=== PATIENT | female | born 1970 | race Caucasian/White ===

== ENCOUNTER 2017-09-16 21:07 | Emergency (ER) | payer SELFPAY ==
[2017-09-16 21:09] VITALS: BP 144/97; PULSE 95; RESP 18; TEMP 37.7; O2SAT 99; BMI 24.3
[2017-09-16 21:21] VITALS: RESP 18
[2017-09-16 21:31] LABS: Bacteria 0 SEEN /hpf (None Seen)
[2017-09-16] MEDS: Ketorolac 30 MG/ML Syringe IV (21:33)
[2017-09-16] MEDS: 0.9% Normal Saline 1,000 ML 1000 ML IV (21:33)
[2017-09-16 21:44] LABS: Color, Urine Yellow (Yellow); Glucose, Dipstick Normal (Normal); Ketone-Dipstick 15 mg/dl (Negative); Leukocyte Esterase-Dipstick 100 /ul (Negative); Nitrite-Dipstick Negative (Negative); Occult Blood-Urine 10 /ul (Negative); Protein-Dipstick 100 mg/dl (Negative); Specific Gravity, Urine 1.025 (1.002-1.030); Urine Clarity Sl. Cloudy (Clear); Urine Urobilinogen 4 mg/dl (Normal)
[2017-09-16 21:48] LABS: Urine Bilirubin Dipstick 1 mg/dL (Negative)
[2017-09-16 21:54] LABS: Amorphous Sediment 1+ URATE; Hyaline Cast 0-5 SEEN /lpf (0-5); Mucous, Urine RARE /hpf (<or=2+); Red Blood Cells-Urine 0-5 SEEN /hpf (0-5); Squamous Epithelial Cells - UA 0-5 SEEN /hpf (5-10); White Blood Cells 5-10 SEEN /hpf (0-5)
--- NOTE | 2017-09-16 21:55 | NURSING ---
POSITIVE STREP RELAYED TO . VERBALIZED UNDERSTANDING
[2017-09-16 21:57] LABS: Absolute Lymphocyte Count 1.46 X10^3/ul (0.83-4.51); Absolute Neutrophil Count 16.4 X10^3/uL (2.0-7.7); Basophil# 0.02 X10^3/uL; Basophil% 0.1 % (0-1); Differential Indicated SCAN CRITERIA MET; Eosinophil# 0.02 X10^3/uL; Eosinophils% 0.1 % (0-5); Hematocrit 41.6 % (37-47); Lymphocyte # 1.46 X10^3/ul (4.0); Lymphocyte % 7.3 % (19-41); Mean Corp Hgb Conc 33.7 g/gl (32-36); Mean Corpuscular Hgb 28.7 pg (27.0-32.0); Mean Corpuscular Volume 85.4 fL (81-99); Mean Platelet Vol. 11.2 fl (6.2-12.0); Neutrophil # 16.44 X10^3/uL (2.7-7.7); Neutrophil % 82.3 % (47-70); POSITIVE COUNT NO; POSITIVE DIFFERENTIAL YES; POSITIVE MORPHOLOGY NO; Platelet Count 200 K/mm3 (150-450); RBC Distribution Width CV 12.8 % (11.6-14.6); RBC Distribution Width SD 40.1 fl (35.1-43.9); Red Blood Count 4.87 M/mm3 (4.2-5.4)
[2017-09-16 21:58] LABS: Anion Gap 8 (5-15); BUN 14 mg/dL (7-18); Calcium,Total 8.6 mg/dL (8.5-10.1); Chloride 99 mmol/L (98-107); Creatinine, Serum 1.17 mg/dL (0.55-1.02); EST Glomerular Filtration Rate 52 mL/min (>60); Est Glom Filt Rate - Afr Amer 63 mL/min (>60); Glucose 122 mg/dL (74-106); Potassium 3.2 mmol/L (3.5-5.1); Sodium Level 133 mmol/L (136-145)
--- NOTE | 2017-09-16 22:13 | ED.VISSUMM ---
- ER Visit Summary Date of Service: 09/16/17 Chief Complaint: [Sore throat ] History of Present Illness: The patient is a 47 F [presents with sore throat ?3 days. Patient has felt hot and cold. She denies sick contacts. Patient denies cough. Patient states that hurts to swallow. She has had subjective fever at home. Patient describes a headache and body aches. Patient describes some low back pain and some lower abdominal pain intermittently. Patient denies dysuria, urgency, or frequency.] Patient denies vomiting or diarrhea. Physical Examination: [HEENT-PERRLA, EOMI. Cranial nerves II through XII grossly intact. TMs clear. Mucous membranes moist. Paient has anterior cervical lymphadenopathy that is tender. Pharynx is erythematous. Tonsils are absent. Uvula midline. No trismus. No stridor. Voice does not appear hoarse. Cardiovascular-regular rate and rhythm without murmur or ectopy Lungs-clear to auscultation, chest wall stable without crepitus or subcu emphysema Abdomen-normoactive bowel sounds, soft. Patient has some mild tenderness over the left lower quadrant and right lower quadrant mostly in both groin areas. No significant adenopathy noted in the groin. Extremities-intact ?4, normal range of motion, normal pulses, atraumatic] Test Results: [CBC with differential obtained showed an elevated white count of 20,000, hemoglobin 14, hematocrit 42, platelets 200. Chemistries unremarkable other than a slightly depressed potassium at 3.2 urinalysis unremarkable. Influenza screen was negative strep screen was positive] Emergency Department Course and Treatment: [Patient had an IV line established and she was given a liter normal same fluid bolus. Patient was given Toradol 30 mg IV and Decadron 10 mg IV. Patient was treated with Zithromax 500 mg p.o. given her allergy to amoxicillin.] Treatment Plan: [Patient will be treated with Zithromax. Patient advised to use salt water gargles. She will be given for [place] for home for severe pain.] Disposition: [Discharged to home in stable condition. Patient advised to follow-up with the [facility] within next 3-5 days.] Patient advised to return if difficulty swallowing or condition should worsen in any way. Impression: [Strep pharyngitis] This note was generated with [employer] dictation software. It may contain incorrect words, spelling, and punctuation that were not noted in review of the chart prior to signing ED Disposition - Plan for ED Patient: Chief Complaint: General Illness Referrals: Care Physician,No Primary [Primary Care Provider] -
--- NOTE | 2017-09-16 22:18 | ED.DCSUM_ITS ---
- ER Visit Summary Date of Service: 09/16/17 Chief Complaint: [Sore throat ] History of Present Illness: The patient is a 47 F [presents with sore throat ?3 days. Patient has felt hot and cold. She denies sick contacts. Patient denies cough. Patient states that hurts to swallow. She has had subjective fever at home. Patient describes a headache and body aches. Patient describes some low back pain and some lower abdominal pain intermittently. Patient denies dysuria, urgency, or frequency.] Patient denies vomiting or diarrhea. Physical Examination: [HEENT-PERRLA, EOMI. Cranial nerves II through XII grossly intact. TMs clear. Mucous membranes moist. Paient has anterior cervical lymphadenopathy that is tender. Pharynx is erythematous. Tonsils are absent. Uvula midline. No trismus. No stridor. Voice does not appear hoarse. Cardiovascular-regular rate and rhythm without murmur or ectopy Lungs-clear to auscultation, chest wall stable without crepitus or subcu emphysema Abdomen-normoactive bowel sounds, soft. Patient has some mild tenderness over the left lower quadrant and right lower quadrant mostly in both groin areas. No significant adenopathy noted in the groin. Extremities-intact ?4, normal range of motion, normal pulses, atraumatic] Test Results: [CBC with differential obtained showed an elevated white count of 20,000, hemoglobin 14, hematocrit 42, platelets 200. Chemistries unremarkable other than a slightly depressed potassium at 3.2 urinalysis unremarkable. Influenza screen was negative strep screen was positive] Emergency Department Course and Treatment: [Patient had an IV line established and she was given a liter normal same fluid bolus. Patient was given Toradol 30 mg IV and Decadron 10 mg IV. Patient was treated with Zithromax 500 mg p.o. given her allergy to amoxicillin.] Treatment Plan: [Patient will be treated with Zithromax. Patient advised to use salt water gargles. She will be given for [place] for home for severe pain.] Disposition: [Discharged to home in stable condition. Patient advised to follow -up with the [facility] within next 3-5 days.] Patient advised to return if difficulty swallowing or condition should worsen in any way. Impression: [Strep pharyngitis] This note was generated with [employer] dictation software. It may contain incorrect words, spelling, and punctuation that were not noted in review of the chart prior to signing ED Disposition - Plan for ED Patient: Chief Complaint: General Illness Referrals: Care Physician,No Primary [Primary Care Provider] -
--- NOTE | 2017-09-16 22:18 | ED.DEP ---
ED Disposition - Plan for ED Patient: Chief Complaint: General Illness Instructions: Strep Throat Prescriptions: Azithromycin [Zithromax] 250 mg PO DAILY #4 tab Referrals: Care Physician,No Primary [Primary Care Provider] - 3-5 Days
[2017-09-16] MEDS: HYDROcodone Bitartrate/Apap 5/325 Tablet PO (22:29)
[2017-09-16] MEDS: Azithromycin 250 MG Tablet 500 MG PO (22:29)
[2017-09-16 22:33] VITALS: BP 149/86; PULSE 89; RESP 18; O2SAT 96
[2017-09-16 22:48] LABS: Differential Comment SCANNED
== END 2017-09-16 22:35 | disposition home or self-care (01) ==
LOC: ED 21:40
PROVIDERS: Emergency Provider Emergency Medicine
DX: J02.0 Streptococcal pharyngitis (principal); E87.6 Hypokalemia; Z72.0 Tobacco use
CPT/HCPCS: 80048; 81001; 85025; 87804; 87880; 96361; 96374; 96375; 99284; J7030

== ENCOUNTER 2019-07-12 13:26 | Emergency (ER) | payer MEDICAID, SELFPAY ==
[2019-07-12 13:26] VITALS: BP 185/117; PULSE 101; RESP 20; TEMP 36.6; O2SAT 99; BMI 25.9
--- NOTE | 2019-07-12 16:24 | ED.DCSUM_ITS ---
- ER Visit Summary Date of Service: 07/12/19 Chief Complaint: Nausea, vomiting, diarrhea History of Present Illness: The patient is a 49 F who presents with nausea, vomiting, and diarrhea that began yesterday. Patient states the pain waxes and wanes. Patient states pain is over the lower abdomen. Patient states she has been unable to keep anything down including her medications. Patient takes lisinopril for high blood pressure. Patient states she has had some watery diarrhea that was worse yesterday. Patient denies any dysuria or hematuria. Patient denies any fevers but admits to subjective chills. Physical Examination: Vital signs are stable. Patient is afebrile. Patient is in no acute distress. Oral mucosa is pink and moist. Neck is supple. Trachea is midline. There is no JVD noted. Heart was regular rate and rhythm. Lungs are clear and equal bilaterally. Abdomen is soft. Bowel sounds are normal. There is mild lower abdominal tenderness. There is no rebound or guarding noted. Skin is warm dry. Cranial nerves II through XII are intact. There are no focal motor or sensory deficits noted. Extremities are intact. There is no calf tenderness or edema. Test Results: CBC was within normal limits. Basic metabolic profile was essentially normal with the exception of a mild hypokalemia of 3.0. Patient was given a dose of oral potassium here. Emergency Department Course and Treatment: Patient was given IV fluids here. Patient was given Zofran. Patient was given a prescription for Zofran. Patient was instructed to follow-up with her primary care physician in 3 to 5 days. Karlene sylvestershon understood and was agreeable with the plan. All questions were answered. Disposition: Discharge home Impression: Nausea, vomiting, and diarrhea This note was generated with [employer] dictation software. It may contain incorrect words, spelling, and punctuation that were not noted in review of the chart prior to signing ED Disposition - Plan for ED Patient: Disposition: Home or Assisted Living Diagnosis: Nausea vomiting and diarrhea Instructions: VOMITING AND DIARRHEA, Nonspecific (Adult) Prescriptions: Ondansetron [Zofran Odt] 4 mg PO Q8H PRN PRN #10 tab PRN Reason: Nausea Prescription Printed Referrals: Care Physician,No Primary [Primary Care Provider] - Desean Bonilla MD [NON-STAFF] - 5-7 Days
[2019-07-12] MEDS: Ondansetron 4 MG/2 ML Vial IV (16:38)
[2019-07-12] MEDS: 0.9% Normal Saline 1,000 ML 1000 ML IV (16:39)
[2019-07-12 16:41] VITALS: BP 200/94; PULSE 71; RESP 16; O2SAT 95
[2019-07-12 16:42] LABS: Absolute Lymphocyte Count 2.18 X10^3/uL (0.83-4.51); Absolute Neutrophil Count 5.9 X10^3/uL (2.0-7.7); Basophil# 0.05 X10^3/uL; Basophil% 0.6 % (0-1); Eosinophil# 0.23 X10^3/uL; Eosinophils% 2.6 % (0-5); Hematocrit 40.7 % (37-47); Hemoglobin 13.4 g/dL (12.0-15.0); Lymphocyte # 2.18 X10^3/ul (4.0); Lymphocyte % 24.2 % (19-41); Mean Corp Hgb Conc 32.9 g/dL (32-36); Mean Corpuscular Hgb 28.5 pg (27.0-32.0); Mean Corpuscular Volume 86.4 fL (81-99); Mean Platelet Vol. 11.1 fl (6.2-12.0); Monocyte# 0.65 X10^3/uL; Monocyte% 7.2 % (0-10); NRBC Flagged by Analyzer 0 % (0-5); Neutrophil # 5.88 X10^3/uL (2.7-7.7); Neutrophil % 65.2 % (47-70); Platelet Count 280 K/mm3 (150-450); RBC Distribution Width CV 12.2 % (11.6-14.6); RBC Distribution Width SD 38.9 fl (35.1-43.9); Red Blood Count 4.71 M/mm3 (4.2-5.4)
[2019-07-12] MEDS: Lisinopril 20 MG Tablet PO (16:52)
[2019-07-12 17:01] LABS: ALB/GLOB Ratio 0.9 RATIO (0.9-2.4); AST(SGOT) 12 U/L (15-37); Alanine Aminotransfer ALT/SGPT 20 U/L (13-56); Albumin, Serum 3.3 g/dL (3.2-5.0); Alkaline Phosphatase 45 U/L (45-117); Anion Gap 2 (5-15); BUN 11 mg/dL (7-18); BUN/Creat Ratio 10.2 RATIO (10-20); Calcium,Total 8.5 mg/dL (8.5-10.1); Chloride 104 mmol/L (98-107); Creatinine, Serum 1.08 mg/dL (0.55-1.02); EST Glomerular Filtration Rate 57 mL/min (>60); Est Glom Filt Rate - Afr Amer 69 mL/min (>60); Estimated Creatinine Clearance 48.74 ml/min; Globulin 3.8 g/dL (2.2-4.2); Glucose 96 mg/dL (74-106); Protein, Total 7.1 g/dL (6.4-8.2); Sodium Level 140 mmol/L (136-145)
[2019-07-12 18:11] VITALS: BP 118/78; PULSE 87; RESP 18; O2SAT 99
== END 2019-07-12 18:13 | disposition home or self-care (01) ==
PROVIDERS: Emergency Provider Emergency Medicine
DX: R11.2 Nausea with vomiting, unspecified (principal); R19.7 Diarrhea, unspecified; E87.6 Hypokalemia; I10 Essential (primary) hypertension; R10.9 Unspecified abdominal pain; R51 Headache; Z72.0 Tobacco use; Z79.899 Other long term (current) drug therapy
CPT/HCPCS: 80053; 85025; 96361; 96374; 99283; J7030; J2405

== ENCOUNTER 2020-02-21 10:11 | Emergency (ER) | payer MEDICAID, SELFPAY ==
[2020-02-21 10:11] VITALS: BP 174/117; PULSE 88; RESP 24; TEMP 36.4; O2SAT 98; BMI 25.6
[2020-02-21 10:24] VITALS: BP 174/117; PULSE 88; RESP 24; TEMP 36.4; O2SAT 98
--- NOTE | 2020-02-21 10:28 | EKG12_ITS ---
Test Reason : REPEAT CP Blood Pressure : / mmHG Vent. Rate : 066 BPM Atrial Rate : 066 BPM P-R Int : 148 ms QRS Dur : 080 ms QT Int : 456 ms P-R-T Axes : 070 022 043 degrees QTc Int : 478 ms Normal sinus rhythm Normal ECG Confirmed by FLORES GREEN, MARCY ([id number]), order editor CONNOR CAR ([id number]) on 02/27/2020 7:56:26 AM Referred By: RAH Confirmed By:BONNIE TANNER MD
[2020-02-21] MEDS: 0.9% Normal Saline 1,000 ML 1000 ML IV (10:36)
[2020-02-21] MEDS: Morphine 4 MG/ML Syringe IV (10:36)
[2020-02-21] MEDS: Aspirin 81 MG TAB.CHEW 324 MG PO (10:36)
--- NOTE | 2020-02-21 10:37 | ED.VISSUMM ---
- ER Visit Summary Date of Service: 02/21/20 Chief Complaint: Chest pain History of Present Illness: The patient is a 49 F with no primary care physician. She reports she has chest pain began at 630 this morning. Is a continuous aching pain that waxes and wanes. It is 8 out of 10 at worst and 6 out of 10 currently. Is worsened by breathing and unchanged with exertion. Is relieved by nothing. Patient denies any associated nausea, vomiting. She has diaphoresis and shortness of breath with this. She states that it radiates into her right shoulder and into her upper back. She has had subjective fever and chills. She denies a cough or sore throat. No sick contacts that she knows of. Patient reports that she has had a frontal headache for the past 3 days. She describes this as a sharp pain is gradually worsened. Is 10 on 10 severity. She does have a history of similar headaches. Physical Examination: Vitals: Stable. Afebrile. General: Well-nourished and well-developed. Head: Normocephalic atraumatic. Neck: Supple, no lymphadenopathy. No JVD. Nontender. Cardiovascular: Regular rate and rhythm. No murmurs. Respiratory: No respiratory distress. Clear to auscultation bilaterally. Abdominal: Soft, nontender, nondistended, normal bowel sounds. No guarding, rebound, or peritoneal signs. Back: Nontender. Extremities: Nontender, no edema. Skin: Normal color, no rash. Neurologic: Alert and oriented ?3. Cranial nerves II through XII are intact. Normal strength and sensation. Psych: Anxious. Test Results: EKG is sinus at 83. Is unchanged from 2015. CBC shows lymphocytes of 18. Chem-7 shows a quite a 109 and creatinine 1.24. Troponin is negative. D-dimer is negative. Chest x-ray shows chronic changes. Repeat EKG is unchanged. Repeat troponin is negative. Clinical Impression(s) from Imaging Studies Chest X-Ray 02/21/20 11:00 IMPRESSION: Normal x-ray examination of the chest. Electronically Signed: Torin Minaya, at 11:21 EDT , Service support , Emergency Department Course and Treatment: Patient had an IV placed. She given morphine and Zofran IV. She was given aspirin p.o. She is resting more comfortably. Treatment Plan: Patient will be discharged with instructions to follow-up with her primary care physician as soon as possible. Return to the emergency department for any worsening symptoms. Disposition: To home in improved and stable condition. Impression: 1. Atypical chest pain. 2. DAINA score of 2. This note was generated with [employer] dictation software. It may contain incorrect words, spelling, and punctuation that were not noted in review of the chart prior to signing ED Disposition - Plan for ED Patient: Instructions: ED Chest Pain Atypical Unkn Cause Referrals: Miryam Medina [NON-STAFF] - As soon as possible
[2020-02-21 10:38] VITALS: O2SAT 100
[2020-02-21 10:41] LABS: Basophil# 0.06 X10^3/uL; Basophil% 0.7 % (0-1); Eosinophil# 0.33 X10^3/uL; Eosinophils% 3.9 % (0-5); Hematocrit 41.3 % (37-47); Hemoglobin 13.5 g/dL (12.0-15.0); Lymphocyte % 17.5 % (19-41); Mean Corp Hgb Conc 32.7 g/dL (32-36); Mean Corpuscular Hgb 28.4 pg (27.0-32.0); Mean Corpuscular Volume 86.9 fL (81-99); Mean Platelet Vol. 11.2 fl (6.2-12.0); Monocyte# 0.63 X10^3/uL; Monocyte% 7.4 % (0-10); NRBC Flagged by Analyzer 0 % (0-5); Neutrophil # 6.02 X10^3/uL (2.7-7.7); Neutrophil % 70.1 % (47-70); Platelet Count 294 K/mm3 (150-450); RBC Distribution Width CV 12.3 % (11.6-14.6); RBC Distribution Width SD 39.1 fl (35.1-43.9); Red Blood Count 4.75 M/mm3 (4.2-5.4); White Blood Count 8.6 K/mm3 (4.4-11.0)
[2020-02-21 10:51] LABS: D-Dimer Quantitative (DVT/PE) 0.44 FEU/ug/m (0.27-0.49)
[2020-02-21] MEDS: Ondansetron 4 MG/2 ML Vial IV (10:51)
[2020-02-21 10:56] LABS: Anion Gap 5 (5-15); BUN 17 mg/dL (7-18); BUN/Creat Ratio 13.7 RATIO (10-20); Calcium,Total 8.8 mg/dL (8.5-10.1); Chloride 109 mmol/L (98-107); Creatinine, Serum 1.24 mg/dL (0.55-1.02); EST Glomerular Filtration Rate 48 mL/min (>60); Est Glom Filt Rate - Afr Amer 59 mL/min (>60); Estimated Creatinine Clearance 42.45 ml/min; Glucose 96 mg/dL (74-106); Potassium 3.7 mmol/L (3.5-5.1); Sodium Level 141 mmol/L (136-145)
--- NOTE | 2020-02-21 11:00 | RAD_ITS ---
STUDY: X-RAY CHEST REASON FOR EXAM: Female, 49 years old. C/O CHEST TIGHTNESS THAT IS WORSE WITH BREATHING AND NUMBNESS IN RIGHT ARM STARTING LAST NIGHT. TECHNIQUE: Single AP portable view of the chest. COMPARISON: None. FINDINGS: EKG electrodes are seen. The lungs are clear and expanded. There is no demonstrated pleural abnormality. Normal size heart. Normal mediastinum and shima. Normal visualized pulmonary arteries. Normal visualized aortic arch and descending thoracic aorta. Normal visualized thoracic spine. Normal visualized ribs, clavicles, and shoulders. There is no demonstrated abnormality of the visualized soft tissue structures of the upper abdomen. RAD/Chest 1 View (Portable) IMPRESSION: Normal x-ray examination of the chest. Electronically Signed: Torin Minaya, at 11:21 EDT , Service support ,
--- NOTE | 2020-02-21 11:09 | EKG12_ITS ---
Test Reason : CP Blood Pressure : / mmHG Vent. Rate : 083 BPM Atrial Rate : 083 BPM P-R Int : 140 ms QRS Dur : 080 ms QT Int : 404 ms P-R-T Axes : 074 038 062 degrees QTc Int : 474 ms Normal sinus rhythm Normal ECG Confirmed by FLORES GREEN, MARCY ([id number]), video news editor CONNOR CAR ([id number]) on 02/27/2020 7:56:40 AM Referred By: RAH Confirmed By:BONNIE TANNER MD
[2020-02-21 13:02] VITALS: BP 194/102; PULSE 76; RESP 18; O2SAT 100
[2020-02-21 14:22] VITALS: BP 176/94; PULSE 84; RESP 17; O2SAT 99
== END 2020-02-21 14:23 | disposition home or self-care (01) ==
LOC: ED 11:40
PROVIDERS: Emergency Provider Emergency Medicine
DX: R07.9 Chest pain, unspecified (principal); F17.200 Nicotine dependence, unspecified, uncomplicated; I10 Essential (primary) hypertension
CPT/HCPCS: 71045; 80048; 84484; 85025; 85379; 93005; 96374; 96375; 99284; J7030; A4216; J2405

== ENCOUNTER → 2020-03-29 17:15 | Outpatient (CLI) | payer MEDICAID, SELFPAY | PROVIDERS: Referring Provider Physician Assistant; Visit Provider Physician Assistant | DX: Z20.828 Contact with and (suspected) exposure to other viral communicable diseases (principal) | CPT/HCPCS: 87635; C9803; U0003 ==

== ENCOUNTER 2020-04-30 17:46 | Emergency (ER) | payer MEDICAID, SELFPAY ==
[2020-04-30 17:46] VITALS: BP 150/109; PULSE 88; RESP 16; TEMP 36.1; O2SAT 100; BMI 25.6
--- NOTE | 2020-04-30 18:29 | ED.RN ---
CALLED FOR PT AT 182, NO ANSWER.
== END 2020-04-30 18:28 | disposition left against medical advice (07) ==
LOC: ED 18:37
PROVIDERS: Emergency Provider Emergency Medicine
DX: Z53.21 Procedure and treatment not carried out due to patient leaving prior to being seen by health care provider (principal)

== ENCOUNTER 2020-08-14 14:33 | Emergency (ER) | payer MEDICAID, SELFPAY ==
[2020-08-14 14:34] VITALS: BP 213/119; PULSE 82; RESP 19; TEMP 36.1; O2SAT 99; BMI 27.0
[2020-08-14 14:36] VITALS: BP 213/119; PULSE 86; PULSE 87; RESP 16; RESP 17; TEMP 36.1; O2SAT 98; O2SAT 99
--- NOTE | 2020-08-14 15:05 | ED.DCSUM_ITS ---
- ER Visit Summary Date of Service: 08/14/20 Chief Complaint: Cough History of Present Illness: The patient is a 50 F who goes to the [facility]. She reports she has a cough began yesterday it is nonproductive. She complains of loss of taste today. She has had subjective fever and chills. Complains of a scratchy throat. She also has diffuse myalgias and weakness. She has a headache that stated 10 severity. It is aching and frontal in location. She does have a history of similar headaches. Reports that she is short of breath. This is mild. Is increased with walking. She denies any chest pain. Physical Examination: Vitals: 96.9, 213/119, 87, 17, 90% on room air which is not hypoxic. General: Well-nourished and well-developed. Head: Normocephalic atraumatic. Neck: Supple, no lymphadenopathy. No JVD. Nontender. Cardiovascular: Regular rate and rhythm. No murmurs. Respiratory: No respiratory distress. Clear to auscultation bilaterally. Abdominal: Soft, nontender, nondistended, normal bowel sounds. No guarding, rebound, or peritoneal signs. Back: Nontender. Extremities: Nontender, no edema. Skin: Normal color, no rash. Neurologic: Alert and oriented ?3. Cranial nerves II through XII are intact. Normal strength and sensation. Psych: Normal affect. Test Results: COVID-19 is negative. CBC shows lymphocytes of 18. Chem-7 shows potassium 3.1 creatinine 3.83. Creatinine in 2019 was 1.08?1.24. Clinical Impression(s) from Imaging Studies Chest X-Ray 08/14/20 15:07 IMPRESSION: Normal x-ray examination of the chest. Electronically Signed: Torin Minaya MD at 15:29 EST , Service support , Emergency Department Course and Treatment: Patient had an IV placed. She was given morphine, Zofran, and dexamethasone IV. Repeat blood pressure is 208/105. She is given a dose of Vasotec IV and repeat blood pressure is 160/70. Treatment Plan: I discussed the lab findings with the patient. At this time I do not have an explanation for her acute renal insufficiency. She is on lisinopril for her hypertension. Given the renal insufficiency I do not think that increasing the dose of this is in her best interest. She feels well and would like to go home. She will be discharged with Zofran and instructed to follow-up to [facility] in 2 days for a repeat blood pressure check and repeat evaluation of her renal function. Return to the emergency department for any worsening symptoms. Disposition: To home in improved and stable condition. Impression: 1. URI. 2. ANAND. 3. Hypertension on lisinopril. This note was generated with [employer] dictation software. It may contain incorrect words, spelling, and punctuation that were not noted in review of the chart prior to signing ED Disposition - Plan for ED Patient: Instructions: ED URI, Viral, No Abx (Adult), ED Renal Insufficiency, ED High Blood Pressure ... Prescriptions: Benzonatate [Tessalon Perle] 200 mg PO TID PRN PRN #20 capsule PRN Reason: Cough Ondansetron [Zofran Odt] 4 mg PO Q8H PRN PRN #10 tablet PRN Reason: Nausea Referrals: Miryam Medina [NON-STAFF] - 2 Days
--- NOTE | 2020-08-14 15:07 | RAD_ITS ---
STUDY: X-RAY CHEST REASON FOR EXAM: Female, 50 years old. Cough TECHNIQUE: Single AP portable view of the chest. COMPARISON: Comparison is made with prior study dated 02/21/2020. FINDINGS: Hyperinflation. The lungs are clear. There is no demonstrated pleural abnormality. Normal size heart. Normal mediastinum and shima. Normal visualized pulmonary arteries. Normal visualized aortic arch and descending thoracic aorta. Normal visualized thoracic spine. Normal visualized ribs, clavicles, and shoulders. There is no demonstrated abnormality of the visualized soft tissue structures of the upper abdomen. RAD/Chest 1 View (Portable) IMPRESSION: Normal x-ray examination of the chest. Electronically Signed: Torin Minaya MD at 15:29 EST , Service support ,
[2020-08-14] MEDS: Morphine 4 MG/ML Syringe IV (15:25)
[2020-08-14] MEDS: dexAMETHasone 10 MG/ML Vial 6 MG IV (15:26)
[2020-08-14] MEDS: Ondansetron 4 MG/2 ML Vial IV (15:26)
[2020-08-14 15:31] VITALS: O2SAT 100
[2020-08-14 15:31] LABS: Absolute Lymphocyte Count 1.71 X10^3/uL (0.83-4.51); Absolute Neutrophil Count 6.5 X10^3/uL (2.0-7.7); Basophil# 0.09 X10^3/uL; Eosinophil# 0.32 X10^3/uL; Eosinophils% 3.4 % (0-5); Hematocrit 42.3 % (37-47); Lymphocyte # 1.71 X10^3/ul (4.0); Lymphocyte % 18.4 % (19-41); Mean Corp Hgb Conc 33.1 g/dL (32-36); Mean Corpuscular Hgb 28.7 pg (27.0-32.0); Mean Corpuscular Volume 86.9 fL (81-99); Mean Platelet Vol. 11.3 fl (6.2-12.0); Monocyte# 0.64 X10^3/uL; Monocyte% 6.9 % (0-10); NRBC Flagged by Analyzer 0 % (0-5); Neutrophil % 70.1 % (47-70); Platelet Count 276 K/mm3 (150-450); RBC Distribution Width SD 38.5 fl (35.1-43.9); Red Blood Count 4.87 M/mm3 (4.2-5.4); White Blood Count 9.3 K/mm3 (4.4-11.0)
[2020-08-14 16:06] LABS: Anion Gap 6 (5-15); BUN 13 mg/dL (7-18); BUN/Creat Ratio 4.6 RATIO (10-20); Calcium,Total 8.7 mg/dL (8.5-10.1); Chloride 104 mmol/L (98-107); Creatinine, Serum 2.83 mg/dL (0.55-1.02); EST Glomerular Filtration Rate 19 mL/min (>60); Est Glom Filt Rate - Afr Amer 23 mL/min (>60); Estimated Creatinine Clearance 18.39 ml/min; Glucose 91 mg/dL (74-106); Potassium 3.1 mmol/L (3.5-5.1); Sodium Level 137 mmol/L (136-145)
[2020-08-14] MEDS: Enalaprilat 1.25 MG/ML Vial IV (16:19)
[2020-08-14] MEDS: 0.9% Normal Saline 1,000 ML 999 ML IV (16:21)
[2020-08-14 17:10] VITALS: BP 164/99; PULSE 77; RESP 17; O2SAT 98
== END 2020-08-14 17:17 | disposition home or self-care (01) ==
LOC: ED 15:17
PROVIDERS: Emergency Provider Emergency Medicine
DX: J06.9 Acute upper respiratory infection, unspecified (principal); N17.9 Acute kidney failure, unspecified; I10 Essential (primary) hypertension; F17.200 Nicotine dependence, unspecified, uncomplicated; Z79.899 Other long term (current) drug therapy
CPT/HCPCS: 71045; 80048; 85025; 87426; 96361; 96374; 96375; 99284; J7030; J7040; A4216; J2405

== ENCOUNTER 2020-10-03 18:40 | Emergency (ER) | payer MEDICAID, SELFPAY ==
[2020-10-03 18:41] VITALS: BP 190/112; PULSE 104; RESP 18; TEMP 36.8; O2SAT 99; BMI 26.2
--- NOTE | 2020-10-03 19:01 | EKG12_ITS ---
Test Reason : HTN Blood Pressure : / mmHG Vent. Rate : 090 BPM Atrial Rate : 090 BPM P-R Int : 148 ms QRS Dur : 082 ms QT Int : 386 ms P-R-T Axes : 062 025 058 degrees QTc Int : 472 ms Normal sinus rhythm Normal ECG Confirmed by FLORES GREEN, MARCY ([id number]), supervising editor news reel CONNOR CAR ([id number]) on 10/08/2020 9:09:39 AM Referred By: MICHAEL Confirmed By:BONNIE TANNER MD
--- NOTE | 2020-10-03 19:07 | RAD_ITS ---
STUDY: X-RAY CHEST REASON FOR EXAM: Female, 50 years old. Hypertension TECHNIQUE: Single frontal view of the chest. COMPARISON: 02/21/2020 and 08/14/2020 FINDINGS: There is no new focal consolidation. There is a stable vague opacity within the right lower lung which may reflect a confluence of shadows. Normal size heart. Normal mediastinum and shima. Normal visualized pulmonary arteries. Normal visualized aortic arch and descending thoracic aorta. Normal visualized thoracic spine. Normal visualized ribs, clavicles, and shoulders. There is no demonstrated abnormality of the visualized soft tissue structures of the upper abdomen. RAD/Chest 1 View (Portable) IMPRESSION: No acute cardiopulmonary process. Electronically Signed: Annabel Menon MD at 20:35 EDT Tel , Service support ,
[2020-10-03] MEDS: Labetalol (Prefilled) 20 MG/4 ML 10 MG IV (19:15)
[2020-10-03 19:18] VITALS: BP 188/102; PULSE 88; RESP 16; O2SAT 96
[2020-10-03 19:33] LABS: Absolute Lymphocyte Count 1.42 X10^3/uL (0.83-4.51); Absolute Neutrophil Count 10.2 X10^3/uL (2.0-7.7); Basophil# 0.05 X10^3/uL; Basophil% 0.4 % (0-1); Eosinophil# 0.07 X10^3/uL; Eosinophils% 0.6 % (0-5); Hematocrit 40.9 % (37-47); Hemoglobin 13.6 g/dL (12.0-15.0); Lymphocyte # 1.42 X10^3/ul (0.83-4.51); Lymphocyte % 11.5 % (19-41); Mean Corp Hgb Conc 33.3 g/dL (32-36); Mean Corpuscular Hgb 28.3 pg (27.0-32.0); Mean Platelet Vol. 11.5 fl (6.2-12.0); Monocyte# 0.54 X10^3/uL; Monocyte% 4.4 % (0-10); NRBC Flagged by Analyzer 0 % (0-5); Neutrophil % 82.7 % (47-70); Platelet Count 293 K/mm3 (150-450); RBC Distribution Width CV 12.3 % (11.6-14.6); RBC Distribution Width SD 37.7 fl (35.1-43.9); Red Blood Count 4.81 M/mm3 (4.2-5.4); White Blood Count 12.3 K/mm3 (4.4-11.0)
[2020-10-03 19:54] LABS: ALB/GLOB Ratio 0.9 RATIO (0.9-2.4); AST(SGOT) 8 U/L (15-37); Alanine Aminotransfer ALT/SGPT 17 U/L (13-56); Albumin, Serum 3.5 g/dL (3.2-5.0); Alkaline Phosphatase 43 U/L (45-117); Anion Gap 7 (5-15); BUN 13 mg/dL (7-18); BUN/Creat Ratio 4.9 RATIO (10-20); Calcium,Total 8.6 mg/dL (8.5-10.1); Chloride 95 mmol/L (98-107); Creatinine, Serum 2.64 mg/dL (0.55-1.02); EST Glomerular Filtration Rate 20 mL/min (>60); Est Glom Filt Rate - Afr Amer 24 mL/min (>60); Estimated Creatinine Clearance 19.72 ml/min; Glucose 114 mg/dL (74-106); Potassium 3.2 mmol/L (3.5-5.1); Protein, Total 7.5 g/dL (6.4-8.2); Sodium Level 131 mmol/L (136-145)
[2020-10-03 19:58] VITALS: BP 162/92; PULSE 76; RESP 14; O2SAT 97
[2020-10-03 20:23] VITALS: BP 129/79; PULSE 75; RESP 16; O2SAT 97
[2020-10-03 20:47] VITALS: BP 110/72; PULSE 70; RESP 14; O2SAT 97
--- NOTE | 2020-10-03 21:42 | ED.DCSUM_ITS ---
- ER Visit Summary Date of Service: 10/03/20 Chief Complaint: Hypertension and headache History of Present Illness: The patient is a 50 F who presents with elevated blood pressure and headache that became worse today. Patient states she has been out of her lisinopril for 2 weeks. Patient states that she took some of her brothers lisinopril earlier tonight but this has not helped. Patient states her headache is over the frontal area. Patient describes it as throbbing. Patient states she did notice some black spots in her vision after her headache had started. Patient also admits to some numbness and tingling down her left arm and leg. Patient denies any weakness. Patient admits to nausea but denies any vomiting. Patient denies any chest pain or shortness of breath. Physical Examination: Vital signs are stable except for an elevated blood pressure of 190/112. Patient is afebrile. Patient is in no acute distress. Oral mucosa is pink and moist. Neck is supple. Trachea is midline. There is no JVD. Heart was regular rate and rhythm. Lungs are clear and equal bilaterally. Abdomen is soft. Bowel sounds are normal. There is no tenderness. Cranial nerves II through XII are intact. There are no focal motor or sensory deficits noted. Extremities are intact. There is no calf tenderness or edema. Test Results: EKG was obtained. On my interpretation, it showed a normal sinus rhythm with a rate of 90. OR interval, QRS interval, and QTc intervals were all normal. [place] was normal. There are no acute ST or T wave changes. Portable 1 view chest x-ray was obtained. On my interpretation, lung arrieta are clear. There is normal cardiac silhouette. Bony thorax is normal. There is no acute process noted. Radiologist also interpreted the x-ray and agrees. CBC shows a slight leukocytosis of 12.3. Comprehensive metabolic profile showed an elevated creatinine of 2.64. This was stable compared to previous results. There is mild hyponatremia of 131 and a mild hypokalemia of 3.2. Troponin was normal. Emergency Department Course and Treatment: Patient was given a dose of labetalol here. Patient's blood pressure improved. Patient was feeling better on reevaluation. Patient was given a prescription for lisinopril 20 mg daily. Patient was instructed to follow-up with her primary care physician at the [facility] in 5 to 7 days. Patient understood and was agreeable with the plan. All questions were answered. Disposition: Discharge home Impression: 1. Hypertension This note was generated with [employer] dictation software. It may contain incorrect words, spelling, and punctuation that were not noted in review of the chart prior to signing ED Disposition - Plan for ED Patient: Disposition: Home or Assisted Living Diagnosis: Hypertension Instructions: ED Hypertension, Established Prescriptions: Lisinopril [Zestril] 20 mg PO DAILY #30 tablet Transmission Status: Received by [facility] #30 Referrals: Miryam Medina [NON-STAFF] - 5-7 Days
[2020-10-03 21:47] VITALS: BP 113/69; PULSE 72; RESP 16; O2SAT 98
== END 2020-10-03 21:50 | disposition home or self-care (01) ==
PROVIDERS: Emergency Provider Emergency Medicine
DX: I10 Essential (primary) hypertension (principal); R51.9 Headache, unspecified; R11.0 Nausea; R20.0 Anesthesia of skin; R20.2 Paresthesia of skin; F17.200 Nicotine dependence, unspecified, uncomplicated; Z79.899 Other long term (current) drug therapy
CPT/HCPCS: 71045; 80053; 84484; 85025; 93005; 96374; 99285; A4216

== ENCOUNTER 2020-11-26 16:08 | Emergency (ER) | payer MEDICAID, SELFPAY ==
[2020-11-26] VITALS (9 sets, daily range): BP systolic 171–205; BP diastolic 88–117; PULSE 74–102; RESP 14–22; TEMP 35.5; O2SAT 97–100; BMI 25.2
--- NOTE | 2020-11-26 16:14 | RAD_ITS ---
STUDY: X-RAY CHEST REASON FOR EXAM: Female, 50 years old. Hypertension TECHNIQUE: Frontal view COMPARISON: OCTOBER 03 2020. FINDINGS: The lungs are clear and expanded. There is no demonstrated pleural abnormality. Normal size heart. Normal mediastinum and shima. Normal visualized pulmonary arteries. Normal visualized aortic arch and descending thoracic aorta. Normal visualized thoracic spine. Normal visualized ribs, clavicles, and shoulders. There is no demonstrated abnormality of the visualized soft tissue structures of the upper abdomen. RAD/Chest 1 View (Portable) IMPRESSION: Normal x-ray examination of the chest. Electronically Signed: Gera Walden DO at 17:15 EDT Tel [phone], Service support ,
--- NOTE | 2020-11-26 16:14 | EKG12_ITS ---
Test Reason : Blood Pressure : / mmHG Vent. Rate : 065 BPM Atrial Rate : 065 BPM P-R Int : 146 ms QRS Dur : 084 ms QT Int : 454 ms P-R-T Axes : 081 041 064 degrees QTc Int : 472 ms Normal sinus rhythm Minimal voltage criteria for LVH, may be normal variant Borderline ECG Confirmed by JANIE GREEN, WINSTON ([id number]), market editor EFREN NUNES ([id number]) on 11/29/2020 8:25:41 AM Referred By: KELLEE Confirmed By:WINSTON LIMA MD
--- NOTE | 2020-11-26 16:14 | CT_ITS ---
STUDY: CT BRAIN WITHOUT CONTRAST REASON FOR EXAM: Female, 50 years old. Headache RADIATION DOSAGE (If Supplied By Facility): CTDIvol = ( 44.99 ) mGy, DLP = ( 745.49 ) mGycm TECHNIQUE: Transaxial CT imaging of the brain was performed without administration of intravenous contrast material. Individualized dose optimization techniques were used for this CT. COMPARISON: No relevant priors. FINDINGS: Normal soft tissue structures. Normal calvarium. Normal size ventricles and extra-axial spaces for the patient''s age. Bilateral white matter microangiopathic ischemic changes of the cerebral hemispheres. Old lacunar infarcts or prominent perivascular spaces in the right periventricular white matter. Normal basal ganglia and thalami. Normal brainstem. Normal cerebellum. There is no intracranial hemorrhage. There are no findings of an acute ischemic infarction. Probable retention cysts in the right maxillary sinus. CT/Brain/Head without Contrast IMPRESSION: Age-related and chronic changes of the brain. Electronically Signed: Gera Walden DO at 17:14 EDT Tel [phone], Service support ,
--- NOTE | 2020-11-26 16:16 | EX.ED.DYSGE1 ---
HPI History of Present Illness Chief Complaint: Numb/Ting Informant: patient Narrative Narrative: 50-year-old female states for the past couple days she has been lying in bed not feeling well. She cannot really expound on what she was feeling other than being tired. Several hours prior to arrival (no definite timeframe) she states she developed nausea vomiting headache and now her arms and her legs are intermittently tingling. She denies any abdominal pain or prior abdominal surgeries. She denies any diarrhea or fever. However she states she does feel warm at the current time. She was able to ambulate out to her neighbor's car to bring her here. She denies chest pain or shortness of breath. She notes she is treated for hypertension through the start of in clinic. She was noted to be 200/117 in triage. [facility] Medical History (Updated 11/26/20 @ 17:[address] Dougie Wells DO) Hidradenitis suppurativa Hypertension Home Medications lisinopril 20 mg PO DAILY #30 tablet 10/03/20 [Rx Last Taken Unknown] clonidine HCl 0.1 mg PO Q4H PRN 2 Days #20 tab 11/26/20 [Rx Last Taken Unknown] metoprolol succinate [Toprol XL] 50 mg PO DAILY #30 tab 11/26/20 [Rx Last Taken Unknown] ondansetron 4 mg PO Q6H PRN PRN #15 tab 11/26/20 [Rx Last Taken Unknown] Allergy/AdvReac Type Severity Reaction Status Date / Time Penicillins Allergy Hives Verified 10/03/20 18:42 Surgical History History of eye surgery Social History (Updated 11/26/20 @ 16:[address] Dougie Wells DO) Smoking Status: Current every day smoker tobacco type: cigarettes substance use type: does not use ROS ROS ED Constitutional Constitutional ED: Denies chills or weight loss Eyes Eyes: Denies change in vision or diplopia ENT ENT ED: Denies ear pain, rhinorrhea or sore throat Cardiovascular Cardiovascular: Denies chest pain, orthopnea, palpitations or racing heartbeat Respiratory/Chest Respiratory/Chest: Denies cough, dyspnea or orthopnea Gastrointestinal Gastrointestinal: Reports nausea and vomiting; Denies abdominal pain or diarrhea Genitourinary Genitourinary ED: Denies dysuria, hematuria or urinary frequency Musculoskeletal Musculoskeletal: Denies arthralgias or myalgias Integumentary Denies abscess or rash Neurologic Neurologic: Reports headache(s) and paresthesias; Denies weakness Psychiatric Psychiatric: Denies anxiety, depression, suicidal ideation or suicidal thoughts Endocrine Endocrinology: Denies polydipsia, polyphagia or polyuria Allergic/Immunologic Allergic/Immunologic ED: Denies mouth swelling, tongue swelling or urticaria EXAM Physical Exam Narrative Exam Narrative: Patient is lying in the bed holding an empty emesis bag. She is yelling that the blood pressure cuff is hurting her arm. Const Vital Signs: 11/26/20 16:10 11/26/20 17:46 11/26/20 18:33 Temperature 96 F L Temperature Source Oral Pulse Rate 77 74 86 Respiratory Rate 14 14 22 H Blood Pressure 200/117 H 205/90 H 178/89 H Blood Pressure Mean 144 128 118 Pulse Ox 99 100 100 Oxygen Delivery Method Room Air Room Air Room Air 11/26/20 19:00 11/26/20 19:02 11/26/20 19:19 Temperature Temperature Source Pulse Rate 97 Respiratory Rate 18 Blood Pressure 178/89 H 171/88 H 185/98 H Blood Pressure Mean 118 115 127 Pulse Ox 98 Oxygen Delivery Method Room Air 11/26/20 19:27 11/26/20 19:30 Temperature Temperature Source Pulse Rate Respiratory Rate Blood Pressure 189/89 H 198/98 H Blood Pressure Mean 122 131 Pulse Ox Oxygen Delivery Method Positive well nourished and well developed General Appearance ED: well developed HEENT Reports normocephalic, head/scalp atraumatic and moist mucous membranes Eyes PERRL and EOMs intact bilaterally Neck no lymphadenopathy, supple and no JVD Resp normal respiratory effort and clear to auscultation bilaterally Cardio regular rate, regular rhythm and no murmurs GI normal to inspection, nondistended, normoactive bowel sounds and non-tender Palpation: soft Back/Spine no CVA tenderness and normal ROM Extremity normal to inspection General Extremety ED: Negative for edema General Extremity: Negative for edema Neuro oriented x3 and CN's II-XII intact bilaterally Sensorium / Orientation: alert Motor Exam: strength 5/5 throughout Psych mental status grossly normal Mood & Affect: Negative for depressed or tearful Skin no rashes or lesions noted and no wounds MDM MDM MDM Narrative Medical decision making narrative: Patient's blood work is essentially negative. CT the brain negative. My interpretation of the chest x-ray is no acute process. EKG is a normal sinus rhythm at a rate of 65. Patient remained significantly hypertensive at 1 point she was 240/120. She received a dose of hydralazine and came down to around 180/107. Her blood pressure then returned to over 200 she received a second dose of hydralazine. Patient continues to feel poorly having headache and nausea. She is tolerating ice chips. I would like to admit the patient for hypertensive urgency. She does not wish to stay in the hospital. Family is with her. They would like her to stay in the hospital but understand that this is her wish. Patient appears to have the capacity to make this decision. I will write for her to have clonidine at home and I am also going to place her on Toprol. Family notes that she is been inconsistent with her lisinopril. She has a blood pressure cuff at home. Lab Data Attestation: I reviewed the patient's lab results. Labs: Laboratory Results - last 24 hr 11/26/20 11/26/20 11/26/20 16:22 16:22 16:22 WBC 10.9 RBC 5.00 Hgb 14.1 Hct 43.3 MCV 86.6 MCH 28.2 MCHC 32.6 RDW Std Deviation 39.3 RDW Coeff of Jovani 12.4 Plt Count 307 MPV 11.5 Immature Gran % (Auto) 0.300 Neut % (Auto) 74.1 H Lymph % (Auto) 17.4 L [place] % (Auto) 5.5 Eos % (Auto) 1.9 Baso % (Auto) 0.8 Absolute Neuts (auto) 8.1 H Absolute Lymphs (auto) 1.90 Nucleated RBC % 0 PT 12.8 INR 1.0 APTT 25.0 Sodium 141 Potassium 3.3 L Chloride 109 H Carbon Dioxide 25.0 Anion Gap 7 BUN 15 Creatinine 1.34 H Estim Creat Clear Calc 38.84 Est GFR (MDRD) Af Amer 53 L Est GFR (MDRD) Non-Af 44 L BUN/Creatinine Ratio 11.2 Glucose 111 H Calcium 9.2 Total Bilirubin 0.30 AST 11 L ALT 17 Alkaline Phosphatase 45 Troponin I < 0.015 Total Protein 7.5 Albumin 3.5 Globulin 4.0 Albumin/Globulin Ratio 0.9 Lipase 171 Radiography Diagnostic Testing: Radiology Impression Brain CT 11/26/20 16:14 IMPRESSION: Age-related and chronic changes of the brain. Electronically Signed: Gera Walden DO at 17:14 EDT Tel [phone], Service support , Chest X-Ray 11/26/20 16:14 IMPRESSION: Normal x-ray examination of the chest. Electronically Signed: Gera Walden DO at 17:15 EDT Tel [phone], Service support , EKG Initial EKG: Attestation: I personally reviewed and interpreted this EKG as follows: Interpretation: Sinus Rhythm Comments: EKG is a normal sinus rhythm at a rate of 65. Discharge Plan Triage Chief Complaint: Numb/Ting ED Provider: Dougie Wells Dx/Rx/DC Orders Clinical Impression: Hypertensive urgency, Headache, Vomiting, Paresthesias Instructions: ED High Blood Pressure ... Prescriptions: New clonidine HCl 0.1 mg tablet 0.1 mg PO Q4H PRN (Reason: hypertensive emergency) 2 Days Qty: 20 RF: 0 metoprolol succinate [Toprol XL] 50 mg tablet extended release 24 hr 50 mg PO DAILY Qty: 30 RF: 0 ondansetron [ondansetron] 4 MG tablet 4 mg PO Q6H PRN PRN (Reason: Nausea) Qty: 15 RF: 0 No Action lisinopril 20 MG tablet 20 mg PO DAILY Qty: 30 RF: 0 Primary Care Provider: Care Physician,No Primary Referrals: Miryam Medina [NON-STAFF] - As soon as possible Care Physician,No Primary [Primary Care Provider] - Activity Restrictions/Additional Instructions: Tomorrow monitor your blood pressure every 4 hours. Take a dose of clonidine if your blood pressure is greater than 185 on the top number or 105 on the bottom number. Also begin the second blood pressure medication. If your blood pressure is not controlled I strongly urge you to return to emergency. Disposition Disposition: Against Medical Advice Capacity Capacity Assessment Tool Can the patient make a choice & communicate that choice?: Yes Can the patient understand benefits, risks and alternatives?: Yes Can the patient make a logical, rational choice?: Yes Is the choice the patient makes consistent w/ their values?: Yes Is there an impending, emergent risk to the patient?: Yes Does the patient have an Advance Directive?: No Is there a Surrogate Available?: No i.e. HCPOA: No i.e. close relative (spouse, child, parent, sibling)?: Yes
[2020-11-26] MEDS: 0.9% Normal Saline 1,000 ML 1000 ML IV (16:27)
[2020-11-26] MEDS: Ondansetron 4 MG/2 ML Vial IV (16:27)
[2020-11-26 16:38] LABS: Absolute Neutrophil Count 8.1 X10^3/uL (2.0-7.7); Basophil# 0.09 X10^3/uL; Basophil% 0.8 % (0-1); Eosinophil# 0.21 X10^3/uL; Eosinophils% 1.9 % (0-5); Hematocrit 43.3 % (37-47); Hemoglobin 14.1 g/dL (12.0-15.0); Lymphocyte % 17.4 % (19-41); Mean Corp Hgb Conc 32.6 g/dL (32-36); Mean Corpuscular Hgb 28.2 pg (27.0-32.0); Mean Corpuscular Volume 86.6 fL (81-99); Mean Platelet Vol. 11.5 fl (6.2-12.0); Monocyte% 5.5 % (0-10); NRBC Flagged by Analyzer 0 % (0-5); Neutrophil # 8.07 X10^3/uL (2.7-7.7); Neutrophil % 74.1 % (47-70); Platelet Count 307 K/mm3 (150-450); RBC Distribution Width CV 12.4 % (11.6-14.6); RBC Distribution Width SD 39.3 fl (35.1-43.9); White Blood Count 10.9 K/mm3 (4.4-11.0)
[2020-11-26 16:49] LABS: ALB/GLOB Ratio 0.9 RATIO (0.9-2.4); AST(SGOT) 11 U/L (15-37); Alanine Aminotransfer ALT/SGPT 17 U/L (13-56); Albumin, Serum 3.5 g/dL (3.2-5.0); Alkaline Phosphatase 45 U/L (45-117); Anion Gap 7 (5-15); BUN 15 mg/dL (7-18); BUN/Creat Ratio 11.2 RATIO (10-20); Calcium,Total 9.2 mg/dL (8.5-10.1); Chloride 109 mmol/L (98-107); Creatinine, Serum 1.34 mg/dL (0.55-1.02); EST Glomerular Filtration Rate 44 mL/min (>60); Est Glom Filt Rate - Afr Amer 53 mL/min (>60); Estimated Creatinine Clearance 38.84 ml/min; Glucose 111 mg/dL (74-106); Lipase 171 U/L (73-393); Potassium 3.3 mmol/L (3.5-5.1); Protein, Total 7.5 g/dL (6.4-8.2); Sodium Level 141 mmol/L (136-145)
[2020-11-26 16:50] LABS: Prothrombin Time (Protime)PT. 12.8 SECONDS (11.7-14.9)
[2020-11-26] MEDS: Ketorolac 30 MG/ML Syringe IV (17:14)
[2020-11-26] MEDS: LORazepam 2 MG/ML Syringe 1 MG IV (17:14)
[2020-11-26] MEDS: hydrALAZINE 20 MG/ML Vial IV ×2 (17:14→19:50)
== END 2020-11-26 21:02 | disposition left against medical advice (07) ==
PROVIDERS: Emergency Provider Emergency Medicine
DX: I16.0 Hypertensive urgency (principal); R51.9 Headache, unspecified; R11.2 Nausea with vomiting, unspecified; R20.2 Paresthesia of skin; F17.210 Nicotine dependence, cigarettes, uncomplicated; I10 Essential (primary) hypertension; Z79.899 Other long term (current) drug therapy
CPT/HCPCS: 70450; 71045; 80053; 83690; 84484; 85025; 85610; 85730; 93005; 96361; 96374; 96375; 96376; 99285; J7030; A4216; J2405

== ENCOUNTER 2021-01-28 12:57 | Inpatient (IN) | payer MEDICAID, SELFPAY ==
[2020-11-26 16:10] VITALS: BMI 25.2
[2021-01-28] VITALS (10 sets, daily range): BP systolic 139–253; BP diastolic 78–139; PULSE 62–84; RESP 14–16; TEMP 36.2–36.8; O2SAT 97–100; BMI 24.7
--- NOTE | 2021-01-28 13:16 | EX.ED.VIS.HA ---
HPI History of Present Illness Chief Complaint: Headache Detail of Chief Complaint: Headache that started last evening Informant: patient Onset/Context/Timing Current Severity: 03/30 Associated Symptoms/Injury Associated Symptoms: Positive for Nausea and Photophobia Narrative Narrative: Patient presents to the emergency department complaint of a headache that started last evening. Patient states it came on gradually. She complains of nausea and photophobia. Complains of pain from the back of her neck all the way to the front of her head. She is never had a headache like this before. No family history of brain tumors or aneurysms. She tells me she does not have a history of migraines. Denies any falls or head injuries. Patient states she did not take her blood pressure medicine this morning. Patient cannot remember what blood pressure medicine she takes. Prior similar symptoms: No PFSH PFSH Medical History (Updated 01/28/21 @ 16:[address] Jamie Ayala DO) Hidradenitis suppurativa Hypertension Home Medications clonidine HCl 0.1 mg PO Q4H PRN 2 Days #20 tab 11/26/20 [Rx Last Taken Unknown] metoprolol succinate [Toprol XL] 50 mg PO DAILY #30 tab 11/26/20 [Rx Last Taken Unknown] ondansetron 4 mg PO Q6H PRN PRN #15 tab 11/26/20 [Rx Last Taken Unknown] Allergy/AdvReac Type Severity Reaction Status Date / Time Penicillins Allergy Hives Verified 01/28/21 12:58 Surgical History History of eye surgery Social History (Updated 11/26/20 @ 16:[address] Dougie Wells DO) Smoking Status: Current every day smoker tobacco type: cigarettes substance use type: does not use ROS ROS ED Constitutional Constitutional ED: Reports systems reviewed and no addt'l complaints, except as documented; Denies body ache(s), change in weight or chills Eyes Eyes: Reports other Details: Photophobia ; Denies acute decrease in peripheral vision, change in vision, double vision or loss of vision ENT ENT ED: Reports none; Denies ear pain, lip swelling, loss taste/smell, neck pain, otalgia or sore throat Cardiovascular Cardiovascular: Reports none; Denies abdominal pain, chest pain with activity, leg edema, lightheadedness, palpitations, rapid heart rate or syncope Respiratory/Chest Respiratory/Chest: Reports none; Denies change in mental status, dry cough, dyspnea, hemoptysis, shortness of breath at rest or shortness of breath with exertion Gastrointestinal Gastrointestinal: Reports none and nausea; Denies abdominal pain, change in stool character, diarrhea, hematemesis, hematochezia, melena, rectal bleeding or vomiting Genitourinary Genitourinary ED: Reports none; Denies abdominal discomfort, anuria, dysuria, genital pain or polyuria Musculoskeletal Musculoskeletal: Reports none; Denies arthralgias, back pain, difficulty walking, extremity pain, muscle weakness or myalgias Integumentary Reports none; Denies abscess or rash Neurologic Neurologic: Reports none and headache(s); Denies abnormal gait, confusion, focal weakness, frequent falls, loss of vision, numbness, paresthesias, radicular pain, vertigo or weakness Psychiatric Psychiatric: Reports systems reviewed and no addt'l complaints, except as documented and none; Denies behavioral changes, confusion, difficulty concentrating, hallucinations, suicidal ideation, tactile hallucinations or visual hallucinations Endocrine Endocrinology: Denies none, cold intolerance, excessive sweating, fatigue or heat intolerance Hematologic/Lymphatic Hematologic/Lymphatic: Reports none; Denies anemia, easy bleeding or easy bruising Allergic/Immunologic Allergic/Immunologic ED: Denies as per HPI, none, lip swelling, mouth swelling, throat swelling, tongue swelling or hives EXAM Physical Exam Const Vital Signs: 01/28/21 12:59 01/28/21 13:27 01/28/21 13:40 Temperature 97.2 F L Temperature Source Temporal Pulse Rate 82 Respiratory Rate 15 Blood Pressure 200/139 H 253/124 H 205/97 H Blood Pressure Mean 159 167 133 Pulse Ox 100 Oxygen Delivery Method Room Air 01/28/21 14:25 Temperature Temperature Source Pulse Rate 66 Respiratory Rate 16 Blood Pressure 191/107 H Blood Pressure Mean 135 Pulse Ox 99 Oxygen Delivery Method Positive well nourished and well developed General Appearance ED: well developed and NAD HEENT Reports TM's clear and moist mucous membranes normocephalic and atraumatic; Negative for trauma or tenderness Tympanic Membrane ED: Yes TM's clear Eyes EOMs intact bilaterally Eyes Narrative: Left pupil is irregularly shaped and dilated measuring approximately 7 mm. Left pupil is nonreactive. 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 General Eye ED: Negative for pale conjunctiva or scleral icterus Neck no lymphadenopathy, supple and no JVD General: Negative for tenderness Chest Wall inspection of chest normal and palpation of chest normal Chest: Negative for tenderness Resp normal respiratory effort and clear to auscultation bilaterally Effort and Inspection: Negative for respiratory distress or pain with movement Auscultation: Negative for rhonchi, wheezes or diminished lung sounds Cardio regular rate, regular rhythm, S1 normal heart sound, S2 normal heart sound and no murmurs Peripheral Pulses: pulses 2+ throughout GI normal to inspection, nondistended, normoactive bowel sounds, soft to palpation, non-tender, non-distended and no masses Back/Spine no CVA tenderness and no thoracic nor lumbar tenderness Extremity normal to inspection General Extremety ED: Negative for edema General Extremity: Negative for edema Neuro oriented x3, CN's II-XII intact bilaterally, no sensory deficits noted and gait normal Sensorium / Orientation: awake, alert, oriented to person, oriented to place and oriented to time Motor Exam: strength 5/5 throughout and strength abnormal Psych mental status grossly normal Skin no rashes or lesions noted and no wounds MDM MDM MDM Narrative Medical decision making narrative: Patient's headache did improve with Reglan, Benadryl, and Toradol but still has a headache and rates it a 5 out of 10. Initially she received labetalol 20 mg IV and received hydralazine 20 mg IV. Patient continues to have intermittent significant elevations of blood pressure with systolics as high as 236 and diastolics in the 130s. Lab Data Attestation: I reviewed the patient's lab results. Labs: Laboratory Results - last 24 hr 01/28/21 01/28/21 13:25 13:25 WBC 9.0 RBC 5.32 Hgb 15.0 Hct 46.6 MCV 87.6 MCH 28.2 MCHC 32.2 RDW Std Deviation 38.3 RDW Coeff of Jovani 11.9 Plt Count 323 MPV 11.4 Immature Gran % (Auto) 0.300 Neut % (Auto) 67.1 Lymph % (Auto) 18.4 L [place] % (Auto) 7.0 Eos % (Auto) 6.2 H Baso % (Auto) 1.0 Absolute Neuts (auto) 6.0 Absolute Lymphs (auto) 1.66 Nucleated RBC % 0 Sodium 140 Potassium 4.0 Chloride 105 Carbon Dioxide 33.0 H Anion Gap 2 L BUN 16 Creatinine 1.13 H Estim Creat Clear Calc 46.06 Est GFR (MDRD) Af Amer 65 Est GFR (MDRD) Non-Af 54 L BUN/Creatinine Ratio 14.2 Glucose 94 Calcium 9.2 Radiography Diagnostic Testing: Radiology Impression Brain CT 01/28/21 13:49 IMPRESSION: Chronic involutional changes of the brain. Electronically Signed: Lemuel García MD at 14:00 EDT Tel , Service support , Head/Neck CTA 01/28/21 14:19 IMPRESSION: Normal CTA Head and neck with contrast. Electronically Signed: Torin Minaya MD at 15:51 EDT , Service support , Discharge Plan Triage Chief Complaint: Headache ED Provider: Jamie Ayala Dx/Rx/DC Orders Clinical Impression: Hypertensive urgency, Headache Prescriptions: No Action clonidine HCl 0.1 mg tablet 0.1 mg PO Q4H PRN (Reason: hypertensive emergency) 2 Days Qty: 20 RF: 0 metoprolol succinate [Toprol XL] 50 mg tablet extended release 24 hr 50 mg PO DAILY Qty: 30 RF: 0 ondansetron [ondansetron] 4 MG tablet 4 mg PO Q6H PRN PRN (Reason: Nausea) Qty: 15 RF: 0 Primary Care Provider: Care Physician,No Primary Referrals: Care Physician,No Primary [Primary Care Provider] - Disposition Disposition: Acute Care Hospital [facility]
[2021-01-28] MEDS: 0.9% Normal Saline 1,000 ML 1000 ML IV (13:36)
[2021-01-28] MEDS: Metoclopramide 10 MG/2 ML Vial IV (13:37)
[2021-01-28] MEDS: Labetalol (Prefilled) 20 MG/4 ML IV (13:37)
[2021-01-28] MEDS: DiphenhydrAMINE 50 MG/ML Syringe 25 MG IV (13:37)
--- NOTE | 2021-01-28 13:40 | ED.RN ---
pt yelling at staff because monitor is beeping. pt took of bp cuff and continued to yell.
--- NOTE | 2021-01-28 13:49 | CT_ITS ---
STUDY: CT BRAIN WITHOUT CONTRAST REASON FOR EXAM: Female, 50 years old. headache RADIATION DOSAGE (If Supplied By Facility): CTDIvol = ( 44.99 ) mGy, DLP = ( 745.49 ) mGycm TECHNIQUE: Transaxial CT imaging of the brain was performed without administration of intravenous contrast material. Individualized dose optimization techniques were used for this CT. COMPARISON: 11/26/2020 FINDINGS: Normal soft tissue structures. Normal calvarium. There is mild cerebral atrophy with widening of the extra-axial spaces and ventricular dilatation. There are areas of decreased attenuation within the white matter tracts of the supratentorial brain, consistent with microvascular disease changes. Normal basal ganglia and thalami. Normal brainstem. Normal cerebellum. There is no intracranial hemorrhage. There are no findings of an acute ischemic infarction. Normal visualized paranasal sinuses. CT/Brain/Head without Contrast IMPRESSION: Chronic involutional changes of the brain. Electronically Signed: Lemuel García MD at 14:00 EDT Tel , Service support ,
[2021-01-28] MEDS: Ketorolac 15 MG/ML Vial IV ×2 (14:15→20:22)
[2021-01-28] MEDS: Labetalol 100 MG/20 ML Vial 20 MG IV (14:19)
--- NOTE | 2021-01-28 14:19 | CT_ITS ---
STUDY: CTA HEAD AND NECK WITH CONTRAST REASON FOR EXAM: Female, 50 years old. Headache RADIATION DOSAGE (If Supplied By Facility): CTDIvol = ( 22.18 ) mGy, DLP = ( 739.02 ) mGycm TECHNIQUE: CT angiography was performed with a multi-detector CT scanner. Data acquisition was obtained from the skull base through the vertex following intravenous administration of IV 100mL [id number]. MIP images were reconstructed from the axial data set. Post-processing of the angiographic images was performed, with multiplanar reformation and 3D reconstruction. Individualized dose optimization techniques were used for this CT. COMPARISON: No relevant priors. FINDINGS: Normal bilateral petrous carotid arteries. Normal right cavernous carotid artery with a normal supraclinoid bifurcation. Normal left cavernous carotid artery with a normal supraclinoid bifurcation. Normal right A1 segments of the anterior cerebral artery. Normal left A1 segments of the anterior cerebral artery. Normal intact anterior communicating artery (ACOM). Normal bilateral A2 segments of the anterior cerebral arteries. Normal right M1 and M2 segments of the middle cerebral arteries, with a normal M1 bifurcation. Normal left M1 and M2 segments of the middle cerebral arteries, with a normal M1 bifurcation. There is a persistent origin of the right posterior cerebral artery with absence of the posterior communicating artery (PCOM). There is a persistent origin of the left posterior cerebral artery with absence of the posterior communicating artery (PCOM). Normal bilateral vertebral arteries. Normal basilar artery with a normal basilar bifurcation. The visualized bilateral superior cerebellar (SCA) arteries are normal. Normal bilateral P1, P2 and visualized P3 segments of the posterior cerebral arteries. There is no demonstrated aneurysm of the k[place] of [place]. There is no demonstrated abnormality of the visualized brain. Heterogeneous appearance of the upper pole of the right lobe of the thyroid suggesting goitrous change. AORTIC ARCH: Normal visualized aortic arch. Normal origins of the brachiocephalic, left common carotid, and left subclavian arteries. RIGHT CAROTID ARTERIES: Normal right common carotid artery (CCA). Normal right common carotid bulb. Normal origin of the right internal carotid (ICA) artery without a hemodynamically significant stenosis. Normal visualized cervical portion of the right internal carotid artery. Normal origin of the right external carotid artery (ECA). LEFT CAROTID ARTERIES: Normal left common carotid artery (CCA). Normal left common carotid bulb. Normal origin of the left internal carotid (ICA) artery without a hemodynamically significant stenosis. Normal visualized cervical portion of the left internal carotid artery. Normal origin of the left external carotid artery (ECA). VERTEBRAL ARTERIES: Normal bilateral vertebral arteries. CT/CTA Head AND Neck W/ Contrast IMPRESSION: Normal CTA Head and neck with contrast. Electronically Signed: Torin Minaya MD at 15:51 EDT , Service support ,
[2021-01-28 14:39] LABS: Absolute Lymphocyte Count 1.66 X10^3/uL (0.83-4.51); Basophil# 0.09 X10^3/uL; Eosinophil# 0.56 X10^3/uL; Eosinophils% 6.2 % (0-5); Hematocrit 46.6 % (37-47); Lymphocyte # 1.66 X10^3/ul (0.83-4.51); Lymphocyte % 18.4 % (19-41); Mean Corp Hgb Conc 32.2 g/dL (32-36); Mean Corpuscular Hgb 28.2 pg (27.0-32.0); Mean Corpuscular Volume 87.6 fL (81-99); Mean Platelet Vol. 11.4 fl (6.2-12.0); Monocyte# 0.63 X10^3/uL; NRBC Flagged by Analyzer 0 % (0-5); Neutrophil # 6.04 X10^3/uL (2.7-7.7); Neutrophil % 67.1 % (47-70); Platelet Count 323 K/mm3 (150-450); RBC Distribution Width CV 11.9 % (11.6-14.6); RBC Distribution Width SD 38.3 fl (35.1-43.9); Red Blood Count 5.32 M/mm3 (4.2-5.4)
[2021-01-28 14:48] LABS: Anion Gap 2 (5-15); BUN 16 mg/dL (7-18); BUN/Creat Ratio 14.2 RATIO (10-20); Calcium,Total 9.2 mg/dL (8.5-10.1); Chloride 105 mmol/L (98-107); Creatinine, Serum 1.13 mg/dL (0.55-1.02); EST Glomerular Filtration Rate 54 mL/min (>60); Est Glom Filt Rate - Afr Amer 65 mL/min (>60); Estimated Creatinine Clearance 46.06 ml/min; Glucose 94 mg/dL (74-106); Sodium Level 140 mmol/L (136-145)
--- NOTE | 2021-01-28 15:46 | HP.PCM.HOS_ITS ---
HPI - General General Date of Admission: 01/28/21 Date of Service: 01/28/21 Chief Complaint: Headache, Photophobia/phonophobia x 1 month, now elevated BPs HPI Narrative The patient is a 50 y/o F w/ PMHx: Unclear eye condition s/p surgery for cataract/glaucoma/R lense implant, Tobacco use, HTN following with the [facility] who presents to the [facility] ED on 01/28/21 with history of ongoing L sided headaches, lasting hours, intermittently over the last 1 month, starting in the left neck and extending up the left side of her neck to the left frontal head region, throbbing in nature with both photophobia and phonophobia however o n day of ED presentation she had onset of similar headache although more severe, initially 10 out of 10 in severity causing her to even cry with associated nausea and emesis which she had not had prior prompting eventual ED presentation. In the ED she does report that she did recently have medication changes specifically her blood pressure medication as she had been on previously lisinopril, currently now per list on metoprolol and as needed every 4 hour clonidine which she states she does not use daily but does have to occasionally use. She denies knowing her blood pressures when she has had these headaches. She denies any prior history of migraines. Work-up in the ED included T 97.2, h eart rate 82, BP vacillated in the ED up to 253/124, following receiving labetalol x2 as well as hydralazine BP prior to admission 179/84, respiratory rate 14, 99% on room air, CBC with WBC 9, hemoglobin 15, platelet 323 without marked shift, BMP with carbon oxide 33, BUN/creatinine 16/1.13 otherwise not marked appearing BMP, EKG with sinus rhythm with no acute evidence of ischemia, CT brain with no acute intracranial findings, CTA head and neck unremarkable. In the ED patient was administered a migraine cocktail with Benadryl 25 mg IV x1, Toradol 15 mg IV x1 as well as Reglan 10 mg IV x1 in addition to labetalol 20 mg IV x2 and eventually hydralazine 20 mg IV x1. PFSH Medical History Hidradenitis suppurativa Hypertension Left axillary hidradenitis Tobacco use Home Medications clonidine HCl 0.1 mg PO Q4H PRN 2 Days #20 tab 11/26/20 [Rx Last Taken Unknown] metoprolol succinate [Toprol XL] 50 mg PO DAILY #30 tab 11/26/20 [Rx Last Taken 6 Days Ago ~01/22/21] Allergy/AdvReac Type Severity Reaction Status Date / Time Penicillins Allergy Hives Verified 01/28/21 12:58 Family History (Updated 01/28/21 @ 16:[address] Gay aPntoja MD) Mother CVA (cerebral vascular accident) CAD (coronary artery disease) Hypertension Heart disease Myocardial infarction Father CAD (coronary artery disease) Heart disease Hypertension Myocardial infarction Surgical History (Updated 01/28/21 @ 16:[address] Gay Pantoja MD) H/O umbilical hernia repair History of bilateral tubal ligation History of eye surgery Hx of cataract surgery S/P lens implant Status post glaucoma surgery Status post tonsillectomy and adenoidectomy Social History (Updated 01/28/21 @ 16:[address] Gay Pantoja MD) household members: none Smoking Status: Current every day smoker tobacco type: cigarettes Smoking packs per day: 0.5 Smoking cigarettes per day: 10.0 how long ago did patient quit smoking: Patient reports 1/2 ppd cigarette tobacco use since teen. alcohol intake: never substance use type: does not use ROS ROS Narrative Admission Review of Systems: CONSTITUTIONAL: No weight loss, fever, chills, + weakness or fatigue. HEENT: + Photophobia and phonophobia. Eyes: No visual loss, blurred vision, double vision or yellow sclerae. Ears, Nose, Throat: No hearing loss, sneezing, congestion, runny nose or sore throat. SKIN: No rash or itching, lesions, wounds. CARDIOVASCULAR: No chest pain, chest pressure or chest discomfort, palpitations, edema, orthopnea, syncopal events. RESPIRATORY: No shortness of breath, cough or sputum, wheezing, hemoptysis. GASTROINTESTINAL: + anorexia, nausea, vomiting, No diarrhea, abdominal pain, melena, BRBPR. GENITOURINARY: No dysuria, frequency, urgency or retention. NEUROLOGICAL: + headache, photophobia and phonophobia associated, no dizziness, syncope, paralysis, ataxia, numbness or tingling in the extremities, focal weakness, change in bowel or bladder control, seizure. MUSCULOSKELETAL: + muscle, back pain, joint pain or stiffness. HEMATOLOGIC: No anemia, bleeding or bruising. LYMPHATICS: No enlarged nodes. No history of splenectomy. PSYCHIATRIC: No history of depression or anxiety. ENDOCRINOLOGIC: No reports of sweating, cold or heat intolerance. No polyuria or polydipsia. ALLERGIES: No history of asthma, hives, eczema or rhinitis. Vital Signs Vital Signs Vital Signs: 01/28/21 12:59 01/28/21 13:27 01/28/21 13:40 Temperature 97.2 F L Temperature Source Temporal Pulse Rate 82 Respiratory Rate 15 Blood Pressure 200/139 H 253/124 H 205/97 H Blood Pressure Mean 159 167 133 Pulse Ox 100 Oxygen Delivery Method Room Air 01/28/21 14:25 Temperature Temperature Source Pulse Rate 66 Respiratory Rate 16 Blood Pressure 191/107 H Blood Pressure Mean 135 Pulse Ox 99 Oxygen Delivery Method Weight Weight: 135 lb Body Mass Index (BMI) 24.7 Physical Exam Narrative Physical Examination: General: Awake, alert, oriented x 3 and cooperative, patient laying in the ED bed, room dark, notes ongoing photophobia and phonophobia. Skin: Normal color, normal turgor, no icterus, no cyanosis. HEENT: AT/NC, EOMI, PERRLA however did avoid excessive light examination given presentation with photophobia, dry MM, no carotid bruits or JVD noted. Lungs: CTA bilaterally, moderate effort, mild decrease BL bases, no rales, ronchi or wheezing. Heart: Regular rate and rhythm; no gallop, rub audible. Abdomen: Soft, NTTP, ND, normal BS, no HSM. Extremities: No cyanosis, clubbing, or edema. Neurological: Patient awake, alert, oriented as noted, cognitive function appears intact; pupils equally reactive to light and accommodation, cranial nerves grossly normal however did avoid excessive light examination given presentation with photophobia, moving all 4 extremities, no focal deficits, strength preserved. Psychiatric: Affect appears uncomfortable, fatigued no acute evidence of depressive or anxiety feelings. Results Lab / Micro Data Result Diagrams: 01/28/21 13:25 01/28/21 13:25 Labs: Laboratory Results - last 24 hr 01/28/21 13:25: WBC 9.0, RBC 5.32, Hgb 15.0, Hct 46.6, MCV 87.6, MCH 28.2, MCHC 32.2, RDW Std Deviation 38.3, RDW Coeff of Jovani 11.9, Plt Count 323, MPV 11.4, Immature Gran % (Auto) 0.300, Neut % (Auto) 67.1, Lymph % (Auto) 18.4 L, Bullock % (Auto) 7.0, Eos % (Auto) 6.2 H, Baso % (Auto) 1.0, Absolute Neuts (auto) 6.0, Absolute Lymphs (auto) 1.66, Nucleated RBC % 0 01/28/21 13:25: Sodium 140, Potassium 4.0, Chloride 105, Carbon Dioxide 33.0 H, Anion Gap 2 L, BUN 16, Creatinine 1.13 H, Estim Creat Clear Calc 46.06, Est GFR (MDRD) Af Amer 65, Est GFR (MDRD) Non-Af 54 L, BUN/Creatinine Ratio 14.2, Glucose 94, Calcium 9.[address] 01/28/21 13:49 IMPRESSION: Chronic involutional changes of the brain. Electronically Signed: Lemuel García MD at 14:00 EDT Tel , Service support , Assessment & Plan Assessment/Plan (1) Hypertensive urgency: (2) Headache: QUALIFIERS: Headache type: unspecified Headache chronicity pattern: acute headache Intractability: intractable Qualified Code(s): R51.9 - Headache, unspecified PLAN: The patient is a 50 y/o F w/ PMHx: Unclear eye condition s/p surgery for cataract/glaucoma/R lense implant, Tobacco use, HTN who presents to the [facility] ED on 01/28/21 with history of ongoing L sided headaches, lasting hours, intermittently over the last 1 month, starting in the left neck and extending up the left side of her neck to the left frontal head region, throbbing in nature with both photophobia and phonophobia w/ N/V. 1. Hypertensive urgency: Unclear if associated with migraine or if blood pressures are causing the symptoms but given significant photophobia and phonophobia and ongoing episodes for nearly 1 month or longer concern for both issues ongoing, will admit to the PCU given BP improvement, continue to closely monitor, will initiate lisinopril/hydrochlorothiazide in addition to her current regimen, discussed necessity to avoid routinely using clonidine and quickly withdrawing as this could cause rebound hypertension, as noted below we will plan to obtain MRI of the brain, echocardiogram, cycle cardiac enzymes and maintain on telemetry monitoring to be cautious given unclear specific etiology. 2. Suspected Acute Persistent Intractable Migraine: Will hold narcotic therapy give this may exacerbate migraine, initiate IV VPA 500mg Q6 hours, IV Decadron 4mg Q6 hours, IV Toradol 15 mg IV q 8 x 5 doses, Neurontin 100mg TID with meals. Given age and unclear chronic eye disorder will obtain MRI brain with and without. 3. Tobacco Abuse: Encouraged cessation, inpatient consultation per RT, NR if desired. 4. DVT prophylaxis: SCDs, will hold on anticoagulant therapy given significantly elevated blood pressure. Charges/Coding Visit Charges Inpatient E&M: 12025 Init Hosp L3
[2021-01-28] MEDS: hydrALAZINE 20 MG/ML Vial IV (16:22)
--- NOTE | 2021-01-28 16:35 | MRI_ITS ---
STUDY: MRI BRAIN WITH AND WITHOUT CONTRAST REASON FOR EXAM: Female, 50 years old patient with migraine headache. TECHNIQUE: Standardized multiplanar fat and water weighted pulse sequences were obtained. 12 ml of IV Dotarem was administered for the contrast portion of the examination. COMPARISON: None. FINDINGS: Normal size of the ventricles and extra-axial spaces for the patient''s age. There is extensive confluent and patchy abnormal T2 hyperintensity throughout the periventricular white matter as well as the deep white matter. There are areas of encephalomalacia within the right centrum semiovale suggestive of old multiple sclerosis versus old infarcts. Normal T2* images of the brain without demonstrated susceptibility artifact. There is no demonstrated hemosiderin stain. There is a small focus of restricted diffusion involving the right paramedian splenium of the corpus callosum. There is associated encephalomalacia in this area. There are prominent perivascular spaces (PVS) involving the basal ganglia. Normal thalami. There is no extra-axial fluid accumulation. Normal flow voids within the major intracranial circulation suggesting patency by spin echo criteria. Normal venous enhancement. There is no enhancing intra-axial or extra-axial abnormality. Normal sella turcica, pituitary gland, infundibular stalk, optic chiasm and hypothalamus. Normal tectal plate and pineal gland. Normal midbrain, addy and medulla. Normal cerebellum. Normal basal cisterns. Normal bilateral temporal bones. Normal bilateral internal auditory canals. No demonstrated orbital abnormality, within the constraints of a routine brain study. There is a large right maxillary mucous retention cyst. Normal calvarium and skull base. Normal visualized soft tissue structures. Normal visualized upper cervical spine. MRI/Brain W/WO Contrast IMPRESSION: 1. Extensive abnormal white matter signal suggesting sequela of demyelination. 2. Findings suggest acute ischemia or cytotoxic edema in the right paramedian splenium of corpus callosum. Electronically Signed: Naila Delgadillo MD at 0:06 EDT , Service support ,
[2021-01-28 17:08] LABS: Magnesium 2.5 mg/dL (1.6-2.6)
--- NOTE | 2021-01-28 18:27 | ECHOD_ITS ---
Reason For Study: HTN Procedure This was a 2D Doppler, Color Flow transthoracic echocardiogram. Bubble study performed. Exam performed portable in patient room. Left Ventricle Normal LV size. Severe concentric left ventricular hypertrophy. Left ventricular systolic function is normal. The estimated ejection fraction is 75 %. Transmitral doppler flow suggestive of impaired relaxation of left ventricle. No regional wall motion abnormalities noted. Right Ventricle Normal RV size. Normal systolic function. Atria Normal left atrium. Normal right atrium. No doppler evidence for ASD. Bubble contrast study negative for right to left interatrial shunt. Mitral Valve There is no mitral annular calcification. Normal mitral valve. Trivial mitral valve insufficiency. Tricuspid Valve Normal tricuspid valve. Trivial tricuspid valve insufficiency. Unable to estimate RV systolic pressure due to insufficient tricuspid regurgitant envelope. Aortic Valve Trisinus/trileaflet aortic valve. Normal aortic valve. Trivial aortic valve insufficiency. Pulmonic Valve The pulmonic valve is not well visualized. Great Vessels Normal sized aortic root. Pericardium/Pleural No pericardial effusion. Medication Performed a rapid injection of agitated mix of 9 cc saline and 1cc air to assess for atrial septal defect. MMode/2D Measurements & Calculations LVIDd: 3.7 cm IVSd: 1.8 cm Ao root diam: 3.2 cm LVIDs: 1.7 cm LVPWd: 1.6 cm LA dimension: 3.2 cm RVDd: 2.8 cm FS: 53.3 % LAV(MOD-bp): 42.3 ml LA A4 area: 14.2 cm2 RA A4 area: 12.4 cm2 LAV(MOD-bp) Indexed: 26.1 ml/m2 LAV(MOD-sp2): 41.4 ml LAV(MOD-sp4): 36.4 ml Time Measurements MV dec time: 0.28 sec Doppler Measurements & Calculations MV E max esau: 57.4 cm/sec Lat Peak E' Esau: 6.5 cm/sec Med Peak E' Esau: 4.4 cm/sec MV A max esau: 96.3 cm/sec E/E' lat: 8.9 E/E' med: 13.1 MV E/A: 0.60 MV V2 max: 110.7 cm/sec MV P1/2t max esau: 91.9 cm/sec Ao V2 max: 172.9 cm/sec MV max P.9 mmHg MV P1/2t: 79.4 msec Ao max P.0 mmHg MV V2 mean: 62.6 cm/sec MV dec slope: 338.8 cm/sec2 MV mean P.8 mmHg MV V2 VTI: 25.4 cm MVA(P1/2t): 2.8 cm2 AI max esau: 360.2 cm/sec LV V1 max: 146.2 cm/sec PA V2 max: 124.2 cm/sec AI max P.9 mmHg LV V1 max P.5 mmHg AI dec slope: 78.0 cm/sec2 AI P1/2t: 1352 msec ECHO/Echo Complete Interpretation Summary Left ventricular systolic function is normal. The estimated ejection fraction is 75 %. Severe concentric left ventricular hypertrophy. Trivial mitral valve insufficiency. Trivial tricuspid valve insufficiency. Trivial aortic valve insufficiency. Unable to estimate RV systolic pressure due to insufficient tricuspid regurgita nt envelope. Transmitral doppler flow suggestive of impaired relaxation of left ventricle Ordering Physician: Gay Pantoja Referring Physician: No PCP Noted Performed By: Kodi Ko RCS
[2021-01-28] MEDS: 0.9% Normal Saline 1,000 ML 100 ML IV (20:15)
[2021-01-28] MEDS: dexAMETHasone 4 MG/ML Vial IV ×2 (20:18→23:56)
[2021-01-28] MEDS: tiZANidine HCl 2 MG Tablet PO (20:18)
[2021-01-28] MEDS: Gabapentin 100 MG Capsule PO (20:18)
[2021-01-28] MEDS: hydroCHLOROthiazide 25 MG Tablet PO (20:20)
[2021-01-28] MEDS: Lisinopril 20 MG Tablet PO (20:21)
[2021-01-28] MEDS: Metoprolol(XL)Succ 50 MG Tablet PO (20:32)
[2021-01-28 20:37] LABS: Troponin-I HS 14.6 pg/mL (3.0-53.7)
[2021-01-28 21:57] LABS: Troponin-I HS 18.4 pg/mL (3.0-53.7)
[2021-01-29] VITALS (12 sets, daily range): BP systolic 121–191; BP diastolic 61–94; PULSE 64–91; RESP 15–18; TEMP 36.7–37.2; O2SAT 95–99
[2021-01-29 02:15] LABS: Absolute Lymphocyte Count 0.51 X10^3/uL (0.83-4.51); Absolute Neutrophil Count 8.7 X10^3/uL (2.0-7.7); Basophil# 0.05 X10^3/uL; Basophil% 0.5 % (0-1); Eosinophil# 0.01 X10^3/uL; Eosinophils% 0.1 % (0-5); Lymphocyte # 0.51 X10^3/ul (0.83-4.51); Lymphocyte % 5.4 % (19-41); Mean Corp Hgb Conc 31.7 g/dL (32-36); Mean Corpuscular Hgb 28.2 pg (27.0-32.0); Mean Corpuscular Volume 88.9 fL (81-99); Mean Platelet Vol. 11.1 fl (6.2-12.0); Monocyte# 0.07 X10^3/uL; Monocyte% 0.7 % (0-10); NRBC Flagged by Analyzer 0 % (0-5); Neutrophil # 8.69 X10^3/uL (2.7-7.7); Neutrophil % 92.9 % (47-70); POSITIVE DIFFERENTIAL YES; Platelet Count 319 K/mm3 (150-450); RBC Distribution Width CV 12.3 % (11.6-14.6); Red Blood Count 4.61 M/mm3 (4.2-5.4); White Blood Count 9.4 K/mm3 (4.4-11.0)
[2021-01-29 02:32] LABS: Differential Indicated SCAN CRITERIA MET
[2021-01-29 02:33] LABS: Troponin-I HS 19.8 pg/mL (3.0-53.7)
[2021-01-29 02:49] LABS: ALB/GLOB Ratio 0.8 RATIO (0.9-2.4); AST(SGOT) 8 U/L (15-37); Alanine Aminotransfer ALT/SGPT 17 U/L (13-56); Alkaline Phosphatase 40 U/L (45-117); Anion Gap 7 (5-15); BUN 16 mg/dL (7-18); Calcium,Total 8.9 mg/dL (8.5-10.1); Chloride 109 mmol/L (98-107); Creatinine, Serum 1.33 mg/dL (0.55-1.02); EST Glomerular Filtration Rate 44 mL/min (>60); Est Glom Filt Rate - Afr Amer 54 mL/min (>60); Estimated Creatinine Clearance 39.13 ml/min; Globulin 3.7 g/dL (2.2-4.2); Glucose 141 mg/dL (74-106); Potassium 3.3 mmol/L (3.5-5.1); Protein, Total 6.7 g/dL (6.4-8.2); Sodium Level 141 mmol/L (136-145)
[2021-01-29] MEDS: dexAMETHasone 4 MG/ML Vial IV ×4 (05:22→23:38)
[2021-01-29] MEDS: Ketorolac 15 MG/ML Vial IV ×3 (05:22→21:24)
[2021-01-29] MEDS: Acetaminophen 325 MG Tablet 650 MG PO ×3 (08:58→20:01)
[2021-01-29] MEDS: Gabapentin 100 MG Capsule PO ×3 (08:58→17:39)
[2021-01-29] MEDS: Potassium Chloride Oral Tablet 20 MEQ 40 MEQ PO (08:58)
[2021-01-29] MEDS: hydroCHLOROthiazide 25 MG Tablet PO (08:58)
[2021-01-29] MEDS: Metoprolol(XL)Succ 50 MG Tablet PO (08:59)
[2021-01-29] MEDS: Lisinopril 20 MG Tablet PO (08:59)
--- NOTE | 2021-01-29 09:42 | TELEMED_ITS ---
[facility] Telemed has confirmed receipt of a request for visit. This document confirms receipt of the order initiating the consult. To find the results of the consultation, please view the patient's reports for the scanned Telemed Consult.
[2021-01-29] MEDS: 0.9% Normal Saline 1,000 ML 100 ML IV ×2 (09:46→20:04)
--- NOTE | 2021-01-29 10:50 | CASEMGMT ---
RN ALONDRA PATIENT ACCESS CM to room to meet with patient for initial transition planning/care coordination assessment. RN ALONDRA introduced self and role at [facility].? Pt voices understanding and consents to assessment at this time.? Pt resting in bed in no distress at this time.? Pt is A/O at this time and answers all questions appropriately.?? Care providers, pharmacy, and demographics verified/updated at this time. PCP: [facility] Specialists: denies Preferred Pharmacy: [facility] Insurance: [employer] Prescription Benefit:? Yes Living Will/HPOA:? Pt does not currently have LW/HCPOA and declines info at this time.? LNOK: 3 children. One daughter is Yashira Living Arrangements: Lives alone in one-story home w/no steps to enter. Independent w/ADL's and IADL's. Transportation: Pt states she has never driven d/t an eye disease. Uses city transit/bus or cab. Family also help when available. DME: ? Denies using any DME and denies needs.? HHC/SNF: No hx SNF. Had HHC in the past after hydradenitis many years ago. No needs identified. Pt wishes to return home and states has no concerns with going home at time of discharge.? CM to follow for any discharge planning/needs.? Pt voices no concerns/needs at this time.? Advised pt to ask for CM if any questions/concerns/needs arise.? Voices understanding. PLAN: Home w/family support and discharge plans in place. ? Willem CODY RN, CM
--- NOTE | 2021-01-29 12:20 | PN.HOSP_ITS ---
Subjective Subjective Patient seen and examined. She was admitted with a complaint of severe headache. She was found to have markedly elevated blood pressure, and was admitted to be managed for hypertensive emergency. She was started on BP meds. She feels better today and says her headache has improved significantly. BP is down in the 120s systolic today. She denies blurred vision, chest pain, numbness or tingling or any focal weakness. Review of systems is otherwise negative. Objective Data Objective Data Vital Signs: Vital Signs Temp Pulse Resp BP Pulse Ox 98.1 F 64 16 135/87 H 99 01/29/21 08:42 01/29/21 08:59 01/29/21 08:42 01/29/21 08:42 01/29/21 08:42 Oxygen Delivery Method Room Air Weight: 136 lb 7.458 oz Body Mass Index (BMI) 24.7 Intake & Output: Intake and Output for Last 24 Hours 01/27/21 01/28/21 01/29/21 23:59 23:59 23:59 Intake Total 1055 / 1655 3056.67 / 3056.67 Balance 1055 / 1655 3056.67 / 3056.67 Lab / Micro Data Result Diagrams: 01/29/21 02:04 01/29/21 02:04 Labs: Laboratory Results - last 24 hr 01/28/21 13:25: WBC 9.0, RBC 5.32, Hgb 15.0, Hct 46.6, MCV 87.6, MCH 28.2, MCHC 32.2, RDW Std Deviation 38.3, RDW Coeff of Jovani 11.9, Plt Count 323, MPV 11.4, Immature Gran % (Auto) 0.300, Neut % (Auto) 67.1, Lymph % (Auto) 18.4 L, Graves % (Auto) 7.0, Eos % (Auto) 6.2 H, Baso % (Auto) 1.0, Absolute Neuts (auto) 6.0, Absolute Lymphs (auto) 1.66, Nucleated RBC % 0 01/28/21 13:25: Sodium 140, Potassium 4.0, Chloride 105, Carbon Dioxide 33.0 H, Anion Gap 2 L, BUN 16, Creatinine 1.13 H, Estim Creat Clear Calc 46.06, Est GFR (MDRD) Af Amer 65, Est GFR (MDRD) Non-Af 54 L, BUN/Creatinine Ratio 14.2, Glucose 94, Calcium 9.2 01/28/21 13:25: Magnesium 2.5 01/28/21 19:40: Troponin I High Sens 14.6 01/28/21 21:14: Troponin I High Sens 18.4 01/29/21 02:04: WBC 9.4, RBC 4.61, Hgb 13.0, Hct 41.0, MCV 88.9, MCH 28.2, MCHC 31.7 L, RDW Std Deviation 40.0, RDW Coeff of Jovani 12.3, Plt Count 319, MPV 11.1, Immature Gran % (Auto) 0.400, Neut % (Auto) 92.9 H, Lymph % (Auto) 5.4 L, Graves % (Auto) 0.7, Eos % (Auto) 0.1, Baso % (Auto) 0.5, Absolute Neuts (auto) 8.7 H, Absolute Lymphs (auto) 0.51 L, Nucleated RBC % 0 01/29/21 02:04: Sodium 141, Potassium 3.3 L, Chloride 109 H, Carbon Dioxide 2 5.0, Anion Gap 7, BUN 16, Creatinine 1.33 H, Estim Creat Clear Calc 39.13, Est GFR (MDRD) Af Amer 54 L, Est GFR (MDRD) Non-Af 44 L, BUN/Creatinine Ratio 12.0, Glucose 141 H, Calcium 8.9, Total Bilirubin 0.20, AST 8 L, ALT 17, Alkaline Phosphatase 40 L, Total Protein 6.7, Albumin 3.0 L, Globulin 3.7, Albumin/Globulin Ratio 0.8 L 01/29/21 02:04: Troponin I High Sens 19.8 Radiography Diagnostic Testing: Radiology Impression Brain CT 01/28/21 13:49 IMPRESSION: Chronic involutional changes of the brain. Electronically Signed: Lemuel García MD at 14:00 EDT Tel , Service support , Head/Neck CTA 01/28/21 14:19 IMPRESSION: Normal CTA Head and neck with contrast. Electronically Signed: Torin Minaya MD at 15:51 EDT , Service support , Brain MRI 01/28/21 16:35 IMPRESSION: 1. Extensive abnormal white matter signal suggesting sequela of demyelination. 2. Findings suggest acute ischemia or cytotoxic edema in the right paramedian splenium of corpus callosum. Electronically Signed: Naila Delgadillo MD at 0:06 EDT , Service support , Physical Exam Const alert, oriented x3 and no apparent distress Orientation / Consciousness: lethargic Exam Limitations: no limitations HEENT head/scalp atraumatic and moist oral mucous membranes Head and Scalp: normocephalic Eyes PERRL, EOMs intact bilaterally and conjunctivae normal Neck no lymphadenopathy Resp normal respiratory effort, no retractions, no use of accessory muscles and clear to auscultation bilaterally Cardio regular rate, regular rhythm, S1 normal heart sound, S2 normal heart sound and no murmurs GI normal to inspection, nondistended, normoactive bowel sounds, soft to palpation, non-tender and non-distended Extremity normal to inspection, full ROM and no clubbing, cyanosis or edema Peripheral Pulses: Yes pulses 2+ throughout Skin no rashes or lesions noted Neuro oriented x3, CN's II-XII intact bilaterally and moves all extremities Sensorium / Orientation: awake and alert Psych affect normal Assessment & Plan Assessment/Plan (1) Hypertensive urgency: (2) Headache: QUALIFIERS: Headache type: unspecified Headache chronicity pattern: acute headache Intractability: intractable Qualified Code(s): R51.9 - Headache, unspecified PLAN: #Hypertensive emergency * resolved. BP is now down to the 120s-130s systolic * patient says she was taking clonidine intermittently; she was counseled about rebound hypertension once clonidine was stopped. * now on HCTZ 25mg daily and lisinopril 20mg daily as well as metoprolol 50mg daily * IV hydralazine prn * MRI of the brain showed acute ischemia vs cytotoxic edema of the corpus callosum, as well as evidence of extensive demyelination * neurology consulted in light of MRI findings * 2D echo pending * #Migrainoid headache * headaches are much better now * received IV steroids and toradol on admission. * on IV toradol prn and well as IV steroids as well as valproic acid * await neurology evaluation * DVT prophylaxis; SCDs Charges/Coding Visit Charges Inpatient E&M: 07996 Subs Hosp L3
[2021-01-29 13:52] LABS: Erythrocyte Sedimentation Rate 7 mm/hr (0-30)
[2021-01-29 14:16] LABS: CRP < 2.90 mg/L (0.0-3.0)
[2021-01-29] MEDS: Aspirin 325 MG Tablet PO (14:20)
[2021-01-29] MEDS: Atorvastatin Calcium 40 MG Tablet PO (14:20)
[2021-01-29] MEDS: 0.9% Saline Lock 10 ML Syringe IV (14:25)
[2021-01-29] MEDS: hydrALAZINE 20 MG/ML Vial 10 MG IV (14:25)
[2021-01-29] MEDS: Clopidogrel Bisulfate 75 MG Tablet PO (17:38)
[2021-01-30] VITALS (8 sets, daily range): BP systolic 151–180; BP diastolic 70–94; PULSE 72–81; RESP 16; TEMP 36.1–36.3; O2SAT 96–97
[2021-01-30 05:33] LABS: Absolute Lymphocyte Count 0.88 X10^3/uL (0.83-4.51); Absolute Neutrophil Count 26.2 X10^3/uL (2.0-7.7); Basophil# 0.03 X10^3/uL; Basophil% 0.1 % (0-1); Hemoglobin 12.3 g/dL (12.0-15.0); Lymphocyte # 0.88 X10^3/ul (0.83-4.51); Lymphocyte % 3.1 % (19-41); Mean Corp Hgb Conc 32.4 g/dL (32-36); Mean Corpuscular Hgb 28.9 pg (27.0-32.0); Mean Corpuscular Volume 89.2 fL (81-99); Mean Platelet Vol. 11.2 fl (6.2-12.0); Monocyte# 0.62 X10^3/uL; Monocyte% 2.2 % (0-10); NRBC Flagged by Analyzer 0 % (0-5); Neutrophil # 26.18 X10^3/uL (2.7-7.7); Neutrophil % 93.7 % (47-70); POSITIVE DIFFERENTIAL YES; Platelet Count 308 K/mm3 (150-450); RBC Distribution Width CV 12.7 % (11.6-14.6); RBC Distribution Width SD 41.3 fl (35.1-43.9); Red Blood Count 4.26 M/mm3 (4.2-5.4)
[2021-01-30 05:40] LABS: Differential Indicated SCAN CRITERIA MET
--- NOTE | 2021-01-30 05:55 | MRI_ITS ---
STUDY: MRI THORACIC SPINE WITH AND WITHOUT CONTRAST REASON FOR EXAM: Female, 50 years old. severe headache, demyelination per MRI brain -- concern for multiple sclerosis TECHNIQUE: IV 13 CC DOTAREM was administered for the contrast portion of the examination. COMPARISON: None. FINDINGS: Normal kyphosis of the thoracic spine. There is no substantial scoliosis. T1-2, T2-3, T3-4, T4-5, T5-6, T6-7, T7-8, T8-9, T9-10, T10-11, T11-12: Normal endplates. Normal disc hydration, heights and morphology of the corresponding intervertebral discs. Normal central canal and intervertebral neural foramina at the corresponding levels. Normal visualized thoracic cord. Normal conus medullaris that terminates at the L1.. The soft tissue structures are unremarkable. There is no enhancing abnormality. MRI/Spine Thoracic W/WO Contrast IMPRESSION: Normal unenhanced and enhanced MRI examination of the thoracic spine. Electronically Signed: Lemuel García MD at 11:33 EDT Tel , Service support ,
--- NOTE | 2021-01-30 05:55 | MRI_ITS ---
STUDY: MRI CERVICAL SPINE WITH AND WITHOUT CONTRAST REASON FOR EXAM: Female, 50 years old. severe headache with demyelination on MRI TECHNIQUE: Standardized fat and water weighted pulse sequences were obtained in the sagittal and axial following administration of 13CC IV DOTAREM. COMPARISON: None FINDINGS: Normal foramen magnum and brainstem-cervical cord junction. Normal craniovertebral junction. Normal anterior atlantoaxial articulation. Normal odontoid process. Normal cervical lordosis. Normal vertebral bodies and posterior osseous elements. C2-3: Normal endplates. Normal disc height, signal and morphology. Normal central canal and intervertebral neural foramina. C3-4: Mild broad disc osteophyte complex produces mild spinal stenosis but no neural foraminal stenosis. C4-5: Moderate broad disc osteophyte complex produces moderate spinal stenosis with abutment of the central spinal cord and mild bilateral neural foraminal stenosis C5-6: Moderate broad disc osteophyte complex and bilateral E produces moderate spinal stenosis with abutment central spinal cord and mild bilateral neural foraminal stenosis. C6-7: Moderate broad disc osteophyte complex and bilateral uncovertebral hypertrophy produces moderate spinal stenosis with abutment central spinal cord and mild bilateral neural foraminal stenosis. C7-T1: Normal endplates. Normal disc height, signal and morphology. Normal central canal and intervertebral neural foramina. Normal cervical cord. Normal visualized soft tissue structures. MRI/Spine Cervical W/WO Contrast IMPRESSION: Multilevel degenerative changes, as described above. Electronically Signed: Lemuel García MD at 11:31 EDT Tel , Service support ,
[2021-01-30] MEDS: Ketorolac 15 MG/ML Vial IV (06:07)
[2021-01-30] MEDS: 0.9% Normal Saline 1,000 ML 100 ML IV (06:07)
[2021-01-30] MEDS: dexAMETHasone 4 MG/ML Vial IV ×2 (06:07→11:41)
[2021-01-30 06:11] LABS: Anion Gap 5 (5-15); BUN 28 mg/dL (7-18); BUN/Creat Ratio 25.5 RATIO (10-20); Calcium,Total 8.8 mg/dL (8.5-10.1); Chloride 111 mmol/L (98-107); Cholesterol 145 mg/dL (200); EST Glomerular Filtration Rate 55 mL/min (>60); Est Glom Filt Rate - Afr Amer 67 mL/min (>60); Estimated Creatinine Clearance 47.32 ml/min; Glucose 130 mg/dL (74-106); High Density Lipoprotein 47 mg/dL; Potassium 4.1 mmol/L (3.5-5.1); Sodium Level 141 mmol/L (136-145); Triglycerides 86 mg/dL; Very Low Density Lipoprotein 17 mg/dL (5-40)
[2021-01-30] MEDS: Lisinopril 20 MG Tablet PO (09:00)
[2021-01-30] MEDS: hydroCHLOROthiazide 25 MG Tablet PO (09:00)
[2021-01-30] MEDS: Clopidogrel Bisulfate 75 MG Tablet PO (09:00)
[2021-01-30] MEDS: Metoprolol(XL)Succ 50 MG Tablet PO (09:00)
[2021-01-30] MEDS: Gabapentin 100 MG Capsule PO ×2 (09:00→11:41)
[2021-01-30] MEDS: Acetaminophen 325 MG Tablet 650 MG PO (09:00)
[2021-01-30] MEDS: Aspirin 81 MG TAB.CHEW PO (09:01)
[2021-01-30] MEDS: Ondansetron 4 MG/2 ML Vial IV (10:55)
[2021-01-30] MEDS: hydrALAZINE 20 MG/ML Vial 10 MG IV (11:00)
[2021-01-30] MEDS: Morphine 2 MG/ML Syringe 1 MG IV (11:40)
[2021-01-30] MEDS: 0.9% Saline Lock 10 ML Syringe IV (11:41)
--- NOTE | 2021-01-30 13:25 | DS.PCM_ITS ---
Providers Date of Admission: 01/28/21 Primary Care Physician: Lisbet Primary Care Phys Reason For Visit: HTN URGENCY, MIGRAINE Diagnosis Discharge Diagnosis (1) Hypertensive urgency: Status: Acute Code(s): I16.0 - Hypertensive urgency (2) Headache: Status: Acute Code(s): R51.9 - Headache, unspecified Qualifiers: Headache type: unspecified Headache chronicity pattern: acute headache Intractability: intractable Qualified Code(s): R51.9 - Headache, unspecified Medications at Discharge Home Medications aspirin 81 mg PO BREAKFAST #30 tab 01/30/21 atorvastatin 80 mg PO QHS #30 tab 01/30/21 clopidogrel 75 mg PO DAILY #21 tab 01/30/21 hydrochlorothiazide 25 mg PO DAILY #30 tab 01/30/21 lisinopril 20 mg PO DAILY #30 tab 01/30/21 metoprolol succinate 50 mg PO DAILY #30 tab 01/30/21 Hospital Course Operations None Procedures 2-D Echocardiogram Summary of Care Provided Minutes Spent on Discharge: 40 Hospital Course: Patient is a 50-year-old female with a past medical history as outlined was admitted through the ED on 01/28/2021 with a complaint of left-sided headache which was severe and has been going on for several hours. He had been intermittent over the last month but worsened prior to admission, and was left- sided and radiated up the left side of her neck to the left forearm tall head region. Headache was throbbing with associated photophobia and phonophobia. In the ED, she was noted to have markedly elevated blood pressure of 253/124. She had previously been on lisinopril and at time of admission says she was on metoprolol and clonidine every 4 hours as needed which she had not been using frequently. CT of the brain showed no acute intracranial findings and CT of the head and neck were unremarkable and showed no significant stenosis. In the ED, she was given a migraine cocktail and was admitted to be managed for hypertensive emergency and migrainoid headache. She was initially started on depakote, IV solumedrol and toradol for headache. She was also started on dia nopril and hydrochlorothiazide as well as metoprolol. MRI of the brain showed acute ischemia versus cytotoxic edema of the corpus callosum as well as evidence of extensive demyelination. Neurology was consulted. Neurology thought that was likely a stroke and recommended starting aspirin and Plavix as well as high intensity statin. Per neurology, there was also concern for multiple sclerosis and recommended MRI of the cervical and thoracic spine with and without contrast. 2D echo showed severe concentric left ventricular hypertrophy with normal EF which was 75% and impaired relaxation of the left ventricle. MRI ofthe thoracic spine was normal, but MRI of the cervical spine showed multi level degenerative disc changes. Blood pressure control subsequently improved. Depakote 10 Solu-Medrol was stopped per recommendation of neurologist. Patient remained stable and was discharged home on 01/30/2021. She was discharged with a prescription for p.o. aspirin. She was also given p.o. Plavix for 3 weeks so that should be on dual antiplatelet for 3 weeks and then continue with aspirin 8 1 mg daily. She is also to take high intensity statin as well as metoprolol, hydrochlorothiazide and lisinopril. She is to follow-up with neurology on outpatient basis for follow-up MRI in 4 to 6 weeks. Of note, ESR and CRP were checked and were not elevated. Patient seen and examined prior to discharge. She had no complaints. Review of symptoms otherwise negative. Labs and vitals reviewed. Medication reviewed and reconciled. Physical Exam Const alert, oriented x3 and no apparent distress General Appearance: cooperative and comfortable Orientation / Consciousness: lethargic Exam Limitations: no limitations HEENT normocephalic, head/scalp atraumatic and moist oral mucous membranes Eyes PERRL, EOMs intact bilaterally and conjunctivae normal Neck no lymphadenopathy Resp normal respiratory effort, no retractions, no use of accessory muscles and clear to auscultation bilaterally Cardio regular rate, regular rhythm, S1 normal heart sound, S2 normal heart sound and no murmurs GI normal to inspection, nondistended, normoactive bowel sounds, soft to palpation, non-tender and non-distended Extremity normal to inspection, full ROM and no clubbing, cyanosis or edema Skin no rashes or lesions noted Neuro oriented x3, CN's II-XII intact bilaterally and moves all extremities Sensorium / Orientation: awake and alert Psych affect normal Weight / BMI Weight Weight: 145 lb 1.027 oz Body Mass Index (BMI) 24.7 ABG / Lab / Microbiology Data Result Diagrams: 01/30/21 05:06 01/30/21 05:06 Laboratory: Laboratory Results - last 24 hr 01/29/21 02:04: ESR 7 08/11/21 02:04: C-React Prot Ext Range < 2.90 01/30/21 05:06: Sodium 141, Potassium 4.1, Chloride 111 H, Carbon Dioxide 25.0, Anion Gap 5, BUN 28 H, Creatinine 1.10 H, Estim Creat Clear Calc 47.32, Est GFR (MDRD) Af Amer 67, Est GFR (MDRD) Non-Af 55 L, BUN/Creatinine Ratio 25.5 H, Glucose 130 H, Calcium 8.8, Triglycerides 86, Cholesterol 145, LDL Cholesterol 81, VLDL Cholesterol 17, HDL Cholesterol 47 01/30/21 05:06: WBC 28.0 H, RBC 4.26, Hgb 12.3, Hct 38.0, MCV 89.2, MCH 28.9, MCHC 32.4, RDW Std Deviation 41.3, RDW Coeff of Jovani 12.7, Plt Count 308, MPV 11.2, Immature Gran % (Auto) 0.900, Neut % (Auto) 93.7 H, Lymph % (Auto) 3.1 L, Stanley % (Auto) 2.2, Eos % (Auto) 0.0, Baso % (Auto) 0.1, Absolute Neuts (auto) 26.2 H, Absolute Lymphs (auto) 0.88, Nucleated RBC % 0 Radiography Diagnostic Testing: Radiology Impression Echocardiogram 01/28/21 18:27 Interpretation Summary Left ventricular systolic function is normal. The estimated ejection fraction is 75 %. Severe concentric left ventricular hypertrophy. Trivial mitral valve insufficiency. Trivial tricuspid valve insufficiency. Trivial aortic valve insufficiency. Unable to estimate RV systolic pressure due to insufficient tricuspid regurgitant envelope. Transmitral doppler flow suggestive of impaired relaxation of left ventricle _ Ordering Physician: Gay Pantoja Referring Physician: No PCP Noted Performed By: Kodi Ko RCS Cervical Spine MRI 01/30/21 05:55 IMPRESSION: Multilevel degenerative changes, as described above. Electronically Signed: Lemuel García MD at 11:31 EDT Tel , Service support , Thoracic Spine MRI 01/30/21 05:55 IMPRESSION: Normal unenhanced and enhanced MRI examination of the thoracic spine. Electronically Signed: Lemuel García MD at 11:33 EDT Tel , Service support , D/C Instructions Discharge Diet: Low fat / Low cholesterol Discharge Activity: Return to Normal Activity Weight Bearing Status: Weight bearing as tolerated Call your doctor if you observe: Fever of 101 or Higher, Dizziness, Fainting spells, Chest pain, Increased palpitations (irregular heartbeat) and Uncontrolled pain Meaningful Use Info Meaningful Use Diagnoses (Choose all that apply): Ischemic CVA CVA Therapy Assessed for PT,OT and/or ST?: Yes Ischemic Stroke Antithrombotic order at d/c?: Yes Dx of Atrial fib/flutter?: No Statins at discharge?: Yes Primary Dx Acute Ischemic CVA?: Yes IV tPA ordered during stay?: No Reason IV t-PA not ordered: Procedure not Indicated Discharge Plan Admission Admit Date/Time: 01/28/21 16:35 Primary Reason for Your Visit: hypertensive emergency, ischemic CVA Attending Provider: Kellee Larios Primary Care Provider: Care Physician,No Primary Instructions Patient Instructions: Controlling High Blood Pressure, Stroke: Taking Medicines, Stroke: Resources and Support, Stroke: Self-Care, Blood Pressure Check Steps Discharge Orders/Prescriptions Prescriptions: New metoprolol succinate 50 mg Tablet Extended Release 24 Hr 50 mg PO DAILY Qty: 30 RF: 1 lisinopril 20 mg Tablet 20 mg PO DAILY Qty: 30 RF: 1 clopidogrel 75 mg Tablet 75 mg PO DAILY Qty: 21 RF: 0 aspirin 81 mg Tablet,Chewable 81 mg PO BREAKFAST Qty: 30 RF: 1 hydrochlorothiazide 25 mg Tablet 25 mg PO DAILY Qty: 30 RF: 1 atorvastatin 80 mg tablet 80 mg PO QHS Qty: 30 RF: 1 Discontinued clonidine HCl 0.1 mg tablet 0.1 mg PO Q4H PRN (Reason: hypertensive emergency) 2 Days Qty: 20 RF: 0 metoprolol succinate [Toprol XL] 50 mg tablet extended release 24 hr 50 mg PO DAILY Qty: 30 RF: 0 Referrals / Follow Up: Rudi Childs MD [STAFF PHYSICIAN] - Within 2 Weeks Miryam Medina [NON-STAFF] - In 1 Week Care Physician,No Primary [Primary Care Provider] - Disposition Disposition (needs filled in before D/C Order can be placed): Home, Self Care Charges/Coding Visit Charges Inpatient E&M: 43688 Disch Hosp
--- NOTE | 2021-01-30 14:01 | CASEMGMT ---
Pt has been independent in the room and voices no concerns with going home at time of discharge. SStnae FERNANDEZ CM
--- NOTE | 2021-01-30 14:20 | PHA.DC.MC ---
Pharmacy Service has performed discharge medication reconciliation and counseling for this patient. The patient was counseled on the following discharge medications and changes in medications for homegoing were reviewed. 1. ASPIRIN 2. LIPITOR 3. PLAVIX 4. HCTZ 5. LISINOPRIL The Reason for Use, instructions for use, and potential side effects were reviewed for all new medications. The patient's questions regarding all of their medications were answered. The patient demonstrated some understanding but would benefit from further education and reinforcement. Home Medications aspirin 81 mg PO BREAKFAST #30 tab 01/30/21 atorvastatin 80 mg PO QHS #30 tab 01/30/21 clopidogrel 75 mg PO DAILY #21 tab 01/30/21 hydrochlorothiazide 25 mg PO DAILY #30 tab 01/30/21 lisinopril 20 mg PO DAILY #30 tab 01/30/21 metoprolol succinate 50 mg PO DAILY #30 tab 01/30/21 The patient's discharge medication list was reviewed for discrepancies and discrepancies were resolved.
== END 2021-01-30 14:30 | disposition home or self-care (01) | DRG 199 ==
LOC: ED 16:10 → PCU 17:06
PROVIDERS: Admitting Provider Family Medicine; Emergency Provider Emergency Medicine; Visit Provider Student in an Organized Health Care Education/Training Program
DX: I16.1 Hypertensive emergency (principal); G43.909 Migraine, unspecified, not intractable, without status migrainosus; L73.2 Hidradenitis suppurativa; F17.210 Nicotine dependence, cigarettes, uncomplicated; I10 Essential (primary) hypertension; Z79.899 Other long term (current) drug therapy; G37.1 Central demyelination of corpus callosum
CPT/HCPCS: 36415; 70450; 70496; 70498; 70553; 72156; 72157; 80048; 80053; 80061; 83735; 84484; 85025; 85652; 86140; 93306; 99251; 99284; 99406; A9575; J7030; Q9957; Q9967; A4216; G0463; J2405; J3490

== ENCOUNTER 2021-08-07 21:37 | Inpatient (IN) | payer MEDICAID, SELFPAY ==
[2021-08-07 21:38] VITALS: BP 119/95; PULSE 80; RESP 16; TEMP 36.4; O2SAT 99; BMI 24.7
--- NOTE | 2021-08-07 21:57 | CT_ITS ---
STUDY: CT ABDOMEN AND PELVIS WITH CONTRAST REASON FOR EXAM: Female, 51 years old. Jaundice RADIATION DOSAGE (If Supplied By Facility): CTDIvol = ( 10.21 ) mGy, DLP = ( 672.39 ) mGycm TECHNIQUE: Transaxial 3.75 mm images were obtained from the dome of the diaphragm to the symphysis pubis without oral contrast. IV 100mL Isovue-370 was administered. Sagittal and coronal images were reconstructed. Individualized dose optimization techniques were used for this CT. COMPARISON: CT chest 06/12/2013. FINDINGS: The visualized lung bases are unremarkable. The visualized portions of the heart are within normal limits. There is elongation of the right hepatic lobe. Mild hepatic steatosis suspected. The gallbladder is contracted. There is mild wall enhancement and pericholecystic fluid. No extrahepatic biliary ductal dilatation detected. There is wall enhancement of the nondilated common biliary duct wall. Enlarged portal lymph nodes, measuring up to 1.4 x 1.9 x 1.7 cm. Borderline in size to minimally enlarged lymph nodes along the gastroesophageal junction. There is a benign calcified granuloma of the spleen. Normal pancreas. No pancreas tract dilatation. Normal bilateral adrenal glands. Stable right upper renal pole cyst. Additional renal cyst of 1.8 cm in the inferior pole, 0.6 cm interpolar kidney. There are bilateral punctate nonobstructing renal calculi. Minimal contour defect and cortical thinning of the right kidney likely scar formation. Normal left kidney. Normal visualized stomach. Normal small intestine. Normal colon. The appendix is visualized and appears normal. There is mild atherosclerotic calcification of the abdominal aorta, without a demonstrated aneurysm. Normal inferior vena cava. Multiple upper retroperitoneal lymph nodes without enlargement. Normal urinary bladder. There is atrophy of the uterus. Bilateral fallopian tube clips. Few left pelvic varices, no cross filling with incompetent left ovarian vein.. Normal abdominal wall. Obesity. Age-appropriate osseous structures. CT/Abdomen/Pelvis W IV Cont ONLY IMPRESSION: Abnormal biliary system with contracted wall enhancing gallbladder and pericholecystic fluid. There is wall enhancement of the nondilated common bile duct. An inflammatory process such as cholangitis possible. On HRT not excluded. Portable lymphadenopathy, borderline-sized lymph nodes in the retroperitoneum and along the gastroesophageal junction. Mild hepatic steatosis suspected with elongated right liver. 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 Electronically Signed: Nicki Churchill MD at 0:41 EST Reading Location ID and State: , Service support ,
--- NOTE | 2021-08-07 22:01 | EX.ED.DYSGE1 ---
HPI History of Present Illness Chief Complaint: General Illness Narrative Narrative: 51-year-old female with history of hypertension and hyperlipidemia presenting with a history of a weeklong episode of fatigue. She states that about a week ago she had a stye in her right eye and then developed a fever of 101. She denies a cough or shortness of breath. She states he had a fever for 2 days and took 3 doses of 500 mg Tylenol each day for 2 days and the fever resolved. She states she has been bedbound and feeling very rundown. She complains of body aches all week. She has decreased p.o. intake but is not vomiting. She states she is having bowel movements and urinating. She denies dysuria or hematuria. She denies abdominal pain. Patient has a history of alcohol abuse in the past but states he has not drank in years. Patient states that she was mostly bedridden this week because she felt so weak and tired. Today was one of her better days. Patient reports that she did not realize she was jaundiced because she has poor vision and went to work today where she was working with her [id number] who told her she was jaundiced. The patient went to urgent care and was sent to the emergency room for evaluation. [facility] Medical History Hidradenitis suppurativa Hypertension Left axillary hidradenitis Tobacco use Home Medications aspirin 81 mg PO BREAKFAST #30 tab 01/30/21 [Rx Last Taken Unknown] atorvastatin 80 mg PO QHS #30 tab 01/30/21 [Rx Last Taken Unknown] hydrochlorothiazide 25 mg PO DAILY #30 tab 01/30/21 [Rx Last Taken Unknown] lisinopril 20 mg PO DAILY #30 tab 01/30/21 [Rx Last Taken Unknown] metoprolol succinate 50 mg PO DAILY #30 tab 01/30/21 [Rx Last Taken Unknown] Allergy/AdvReac Type Severity Reaction Status Date / Time Penicillins Allergy Hives Verified 08/07/21 21:40 Family History Mother CVA (cerebral vascular accident) CAD (coronary artery disease) Hypertension Heart disease Myocardial infarction Father CAD (coronary artery disease) Heart disease Hypertension Myocardial infarction Surgical History H/O umbilical hernia repair History of bilateral tubal ligation History of eye surgery Hx of cataract surgery S/P lens implant Status post glaucoma surgery Status post tonsillectomy and adenoidectomy Social History household members: none Smoking Status: Current every day smoker tobacco type: cigarettes how long ago did patient quit smoking: Patient reports 1/2 ppd cigarette tobacco use since teen. alcohol intake: never substance use type: does not use ROS ROS ED Constitutional Constitutional ED: Reports fever(s); Denies sweats Eyes Eyes: Denies change in vision ENT ENT ED: Denies rhinorrhea or sore throat Cardiovascular Cardiovascular: Denies chest pain or palpitations Respiratory/Chest Respiratory/Chest: Denies cough or dyspnea Gastrointestinal Gastrointestinal: Denies abdominal pain, nausea or vomiting Genitourinary Genitourinary ED: Denies dysuria or hematuria Musculoskeletal Musculoskeletal: Reports myalgias; Denies arthralgias or neck pain Integumentary Denies Abrasions or rash Neurologic Neurologic: Reports headache(s); Denies paresthesias or weakness EXAM Physical Exam Const Vital Signs: 08/07/21 21:38 08/07/21 21:48 Temperature 97.6 F L Temperature Source Temporal Pulse Rate 80 Respiratory Rate 16 Respiratory Effort Normal Blood Pressure 119/95 H Blood Pressure Mean 103 Pulse Ox 99 Oxygen Delivery Method Room Air Positive well nourished General Appearance ED: NAD HEENT Reports dry mucous membranes Negative for trauma Mouth ED: Yes dry mucous membranes Mouth: dry mucous membranes Eyes PERRL and EOMs intact bilaterally General Eye ED: Yes scleral icterus Neck no lymphadenopathy and supple Resp normal respiratory effort and clear to auscultation bilaterally Cardio regular rate and regular rhythm GI normal to inspection, nondistended, normoactive bowel sounds Neuro oriented x3, CN's II-XII intact bilaterally and no sensory deficits noted Sensorium / Orientation: alert Motor Exam: strength 5/5 throughout Psych mental status grossly normal Skin General Skin Exam: jaundice MDM MDM MDM Narrative Medical decision making narrative: Patient presenting with viral symptoms of body aches, history of fever resolved, generalized fatigue. Patient is apparently jaundiced with scleral icterus. Patient was given morphine, Zofran, 1 L of normal saline. Blood work was obtained and her CBC shows a slight leukocytosis of 11.6. Hemoglobin 13.5, hematocrit 39.2, platelets 272. INR normal at 1.3. PT is slightly prolonged at 50.6. Creatinine slightly elevated at 1.46 with most recent creatinine being 1.10 in February. Potassium slightly low at 3.4. Total bilirubin is 18.70, direct bilirubin 13.42, AST 75, ALT 1792. Alkaline phosphatase normal at 104. Lipase is normal at 201. CPK is normal at 88. Urinalysis consistent with urinary tract infection which may explain the patient's previous fever and fatigue. Patient was given a gram Rocephin and urine culture was sent. Patient's vital signs have remained stable and she is afebrile here. I obtained a chest x-ray due to history of fever and on my interpretation shows no acute cardiopulmonary process and radiologist does agree. CT of the abdomen pelvis will be obtained. Patient was discussed with Dr. De La Cruz and he was concerned for the extreme elevation in her bilirubin, AST, ALT. He states that as long as the patient does not have portal vein thrombosis or hepatic vein thrombosis the patient can stay and he can perform a needle biopsy to try and diagnose the cause given that her INR is normal. Dr. De La Cruz did asked me to order some inflammatory markers. Patient's ESR is normal. CRP slightly elevated at 18.50. Lactate dehydrogenase is 534. CT of the abdomen pelvis shows an abnormal biliary system with contracted wall enhancing gallbladder and pericholecystic fluid. There is wall enhancement of the nondilated common bile duct. Radiologist believes this could be an inflammatory process. Radiologist does also note that there is portal lymphadenopathy with borderline size lymph nodes in the retroperitoneum along the GE junction. The radiologist also interprets the elongated right side of the liver to have mild hepatic steatosis likely. Patient reevaluated and is resting comfortably. Repeat abdominal exam was performed and patient does not have any pain. Her vital signs are stable and she is afebrile. To the hospitalist for admission. Impression: 1. Painless jaundice 2. UTI 3. Transaminitis Lab Data Attestation: I reviewed the patient's lab results. Labs: Laboratory Results - last 24 hr 08/07/21 08/07/21 08/07/21 22:20 22:20 22:20 WBC 11.6 H RBC 4.85 Hgb 13.5 Hct 39.2 MCV 80.8 L MCH 27.8 MCHC 34.4 RDW Std Deviation 47.2 H RDW Coeff of Jovani 16.2 H Plt Count 272 MPV 13.1 H Immature Gran % (Auto) 0.300 Neut % (Auto) 67.9 Lymph % (Auto) 17.0 L Stephenson % (Auto) 11.9 H Eos % (Auto) 2.1 Baso % (Auto) 0.8 Absolute Neuts (auto) 7.9 H Absolute Lymphs (auto) 1.96 Nucleated RBC % 0 ESR PT 15.6 H INR 1.3 Sodium 138 Potassium 3.4 L Chloride 105 Carbon Dioxide 26.0 Anion Gap 7 BUN 11 Creatinine 1.46 H Estim Creat Clear Calc 35.24 Est GFR (MDRD) Af Amer 48 L Est GFR (MDRD) Non-Af 40 L BUN/Creatinine Ratio 7.5 L Glucose 92 Calcium 9.5 Total Bilirubin 18.70 H* Direct Bilirubin 13.42 H AST 1785 H ALT 1792 H Alkaline Phosphatase 104 Lactate Dehydrogenase Total Creatine Kinase C-React Prot Ext Range Total Protein 7.4 Albumin 3.0 L Globulin 4.4 H Lipase 201 Urine Color Urine Clarity Urine pH Ur Specific Ward Urine Protein Urine Glucose (UA) Urine Ketones Urine Occult Blood Urine Nitrite Urine Bilirubin Urine Urobilinogen Ur Leukocyte Esterase Urine RBC Urine WBC Ur Squamous Epith Cells Calcium Oxalate Crystal Urine Bacteria Urine Mucus 08/07/21 08/07/21 08/07/21 22:20 22:20 22:20 WBC RBC Hgb Hct MCV MCH MCHC RDW Std Deviation RDW Coeff of Jovani Plt Count MPV Immature Gran % (Auto) Neut % (Auto) Lymph % (Auto) Stephenson % (Auto) Eos % (Auto) Baso % (Auto) Absolute Neuts (auto) Absolute Lymphs (auto) Nucleated RBC % ESR 21 PT INR Sodium Potassium Chloride Carbon Dioxide Anion Gap BUN Creatinine Estim Creat Clear Calc Est GFR (MDRD) Af Amer Est GFR (MDRD) Non-Af BUN/Creatinine Ratio Glucose Calcium Total Bilirubin Direct Bilirubin AST ALT Alkaline Phosphatase Lactate Dehydrogenase Total Creatine Kinase 88 C-React Prot Ext Range Total Protein Albumin Globulin Lipase Urine Color Yellow Urine Clarity Clear Urine pH 5.0 Ur Specific Ward 1.015 Urine Protein 15 H Urine Glucose (UA) Normal Urine Ketones Negative Urine Occult Blood 10 H Urine Nitrite Positive H Urine Bilirubin 6 H Urine Urobilinogen 4 H Ur Leukocyte Esterase 25 H Urine RBC 0 SEEN Urine WBC 0-5 SEEN Ur Squamous Epith Cells 0 SEEN Calcium Oxalate Crystal 1+ Urine Bacteria 1+ Urine Mucus 0 SEEN 08/07/21 22:20 WBC RBC Hgb Hct MCV MCH MCHC RDW Std Deviation RDW Coeff of Jovani Plt Count MPV Immature Gran % (Auto) Neut % (Auto) Lymph % (Auto) Stephenson % (Auto) Eos % (Auto) Baso % (Auto) Absolute Neuts (auto) Absolute Lymphs (auto) Nucleated RBC % ESR PT INR Sodium Potassium Chloride Carbon Dioxide Anion Gap BUN Creatinine Estim Creat Clear Calc Est GFR (MDRD) Af Amer Est GFR (MDRD) Non-Af BUN/Creatinine Ratio Glucose Calcium Total Bilirubin Direct Bilirubin AST ALT Alkaline Phosphatase Lactate Dehydrogenase 534 H Total Creatine Kinase C-React Prot Ext Range 18.50 H Total Protein Albumin Globulin Lipase Urine Color Urine Clarity Urine pH Ur Specific Ward Urine Protein Urine Glucose (UA) Urine Ketones Urine Occult Blood Urine Nitrite Urine Bilirubin Urine Urobilinogen Ur Leukocyte Esterase Urine RBC Urine WBC Ur Squamous Epith Cells Calcium Oxalate Crystal Urine Bacteria Urine Mucus Radiography Diagnostic Testing: Clinical Impression(s) from Imaging Studies Abdomen/Pelvis CT 08/07/21 21:57 IMPRESSION: Abnormal biliary system with contracted wall enhancing gallbladder and pericholecystic fluid. There is wall enhancement of the nondilated common bile duct. An inflammatory process such as cholangitis possible. On HRT not excluded. Portable lymphadenopathy, borderline-sized lymph nodes in the retroperitoneum and along the gastroesophageal junction. Mild hepatic steatosis suspected with elongated right liver. 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 Electronically Signed: Nicki Churchill MD at 0:41 EST Reading Location ID and State: / , Service support , Chest X-Ray 08/07/21 22:03 IMPRESSION: No radiographic evidence of acute cardiopulmonary disease. Electronically Signed: Toño Ortiz MD at 23:44 EST , Discharge Plan Triage Chief Complaint: General Illness ED Provider: Anthony Thornton Dx/Rx/DC Orders Prescriptions: No Action metoprolol succinate 50 mg Tablet Extended Release 24 Hr 50 mg PO DAILY Qty: 30 RF: 1 lisinopril 20 mg Tablet 20 mg PO DAILY Qty: 30 RF: 1 aspirin 81 mg Tablet,Chewable 81 mg PO BREAKFAST Qty: 30 RF: 1 hydrochlorothiazide 25 mg Tablet 25 mg PO DAILY Qty: 30 RF: 1 atorvastatin 80 mg tablet 80 mg PO QHS Qty: 30 RF: 1 Primary Care Provider: Care Physician,No Primary
--- NOTE | 2021-08-07 22:03 | RAD_ITS ---
EXAM: XR CHEST, 1 VIEW CLINICAL INDICATION: fever TECHNIQUE: Frontal view of the chest. This report was created using [employer] report generation technology. COMPARISON: 11/26/2020 FINDINGS: LUNGS AND PLEURAL SPACES: Unremarkable. No consolidation or edema. No pneumothorax. No effusion. HEART: Unremarkable. Cardiac silhouette not enlarged. MEDIASTINUM: Central airways and mediastinal contour are unremarkable. BONES/JOINTS: Unremarkable. SOFT TISSUES: Unremarkable. RAD/Chest 1 View (Portable) IMPRESSION: No radiographic evidence of acute cardiopulmonary disease. Electronically Signed: Toño Ortiz MD at 23:44 [facility] ,
[2021-08-07] MEDS: Ondansetron 4 MG/2 ML Vial IV (22:27)
[2021-08-07] MEDS: Morphine 4 MG/ML Syringe IV (22:27)
[2021-08-07] MEDS: 0.9% Normal Saline 1,000 ML 1000 ML IV (22:27)
[2021-08-07 22:38] LABS: Mucous, Urine 0 SEEN /hpf (<or=2+); Red Blood Cells-Urine 0 SEEN /hpf (0-5); Squamous Epithelial Cells - UA 0 SEEN /hpf (5-10)
[2021-08-07 22:42] LABS: Color, Urine Yellow (Yellow); Glucose, Dipstick Normal (Normal); Ketone-Dipstick Negative (Negative); Leukocyte Esterase-Dipstick 25 /ul (Negative); Nitrite-Dipstick Positive (Negative); Occult Blood-Urine 10 /ul (Negative); Protein-Dipstick 15 mg/dl (Negative); Specific Gravity, Urine 1.015 (1.002-1.030); Urine Clarity Clear (Clear); Urine Urobilinogen 4 mg/dl (Normal)
[2021-08-07 22:45] LABS: Absolute Lymphocyte Count 1.96 X10^3/uL (0.83-4.51); Absolute Neutrophil Count 7.9 X10^3/uL (2.0-7.7); Basophil# 0.09 X10^3/uL; Basophil% 0.8 % (0-1); Eosinophil# 0.24 X10^3/uL; Eosinophils% 2.1 % (0-5); Hematocrit 39.2 % (37-47); Hemoglobin 13.5 g/dL (12.0-15.0); Lymphocyte # 1.96 X10^3/ul (0.83-4.51); Mean Corp Hgb Conc 34.4 g/dL (32-36); Mean Corpuscular Hgb 27.8 pg (27.0-32.0); Mean Corpuscular Volume 80.8 fL (81-99); Mean Platelet Vol. 13.1 fl (6.2-12.0); Monocyte# 1.37 X10^3/uL; Monocyte% 11.9 % (0-10); NRBC Flagged by Analyzer 0 % (0-5); Neutrophil # 7.85 X10^3/uL (2.7-7.7); Neutrophil % 67.9 % (47-70); Platelet Count 272 K/mm3 (150-450); RBC Distribution Width CV 16.2 % (11.6-14.6); RBC Distribution Width SD 47.2 fl (35.1-43.9); Red Blood Count 4.85 M/mm3 (4.2-5.4); White Blood Count 11.6 K/mm3 (4.4-11.0)
[2021-08-07 22:49] LABS: Urine Bilirubin Dipstick 6 mg/dL (Negative)
[2021-08-07 22:50] LABS: Bacteria 1+ /hpf (None Seen); Calcium Oxalate Crystals Ur 1+ /hpf (<or=2+); White Blood Cells 0-5 SEEN /hpf (0-5)
[2021-08-07 23:01] LABS: International Normalized Ratio 1.3; Prothrombin Time (Protime)PT. 15.6 SECONDS (11.7-14.9)
[2021-08-07] MEDS: Ceftriaxone 1 GM/50 ML BAG IV (23:01)
[2021-08-07 23:08] LABS: AST(SGOT) 1785 U/L (15-37); Alanine Aminotransfer ALT/SGPT 1792 U/L (13-56); Alkaline Phosphatase 104 U/L (45-117); Anion Gap 7 (5-15); BUN 11 mg/dL (7-18); BUN/Creat Ratio 7.5 RATIO (10-20); Bilirubin, Direct 13.42 mg/dL (0.00-0.30); Calcium,Total 9.5 mg/dL (8.5-10.1); Chloride 105 mmol/L (98-107); Creatinine, Serum 1.46 mg/dL (0.55-1.02); EST Glomerular Filtration Rate 40 mL/min (>60); Est Glom Filt Rate - Afr Amer 48 mL/min (>60); Estimated Creatinine Clearance 35.24 ml/min; Globulin 4.4 g/dL (2.2-4.2); Glucose 92 mg/dL (74-106); Lipase 201 U/L (73-393); Potassium 3.4 mmol/L (3.5-5.1); Protein, Total 7.4 g/dL (6.4-8.2); Sodium Level 138 mmol/L (136-145)
[2021-08-07 23:13] LABS: CPK Total, Creatine Kinase 88 U/L (26-192)
[2021-08-08] VITALS (13 sets, daily range): BP systolic 129–159; BP diastolic 79–107; PULSE 59–92; RESP 16–20; TEMP 36.4–37.3; O2SAT 94–99; BMI 26.7
[2021-08-08 00:14] LABS: Erythrocyte Sedimentation Rate 21 mm/hr (0-30)
[2021-08-08 00:32] LABS: LDH 534 U/L (84-246)
--- NOTE | 2021-08-08 01:16 | PCM.HP.STD ---
HPI - General General Date of Admission: 08/08/21 Date of Service: 08/08/21 Chief Complaint: Generalized weakness - 1 week Jaundice - 2 days HPI Brant RAY, is a 51 F who presents with the above of. She has been feeling unwell for about a week. She has generalized weakness, malaise. She had associated stye of the right eye at that time. This went away after 4 days. Patient was noticed to be jaundiced over the last 2 days prior to admission. She denied any new medications. She says she takes occasional Tylenol for pain. She is on aspirin. She denied any weight loss or night sweats. She has had poor appetite. Denied any pale stools to but has dark-colored urine. She denies any use of alcohol. She smokes marijuana daily. Vitals in the ED show blood pressure 119/95, temperature 97.6 F, heart rate 75, SPO2 95% on 2 L of oxygen. Her WBC count 11.6, hemoglobin 13.5, platelet 270. Na 138, K 3.4, Cl 105, HCo3 26, BUN 11, Cr 1.46, baseline Cr 1.1. Total bilirubin 18.7, direct bilirubin 13.42, AST 1785, ALT 1792, ALP 104, LDH 534, CRP 18.50, ESR is normal. Acetaminophen level less than 2, salicylate level less than 1.7, hepatitis profile is pending. Rapid COVID-19 antigen test is negative Admitting chest x-ray showed no acute cardiopulmonary process. CT abdomen and pelvis showed abnormal biliary system with contracted wall. Patient also has multiple lymphadenopathy in the retroperitoneum and along the gastro-esophageal junction. PFSH Medical History CVA (cerebral vascular accident) Hidradenitis suppurativa Hypertension Left axillary hidradenitis Tobacco use Home Medications aspirin 81 mg PO BREAKFAST #30 tab 01/30/21 [Rx Last Taken 08/07/21] atorvastatin 80 mg PO QHS #30 tab 01/30/21 [Rx Last Taken 08/06/21] hydrochlorothiazide 25 mg PO DAILY #30 tab 01/30/21 [Rx Last Taken 08/07/21] lisinopril 20 mg PO DAILY #30 tab 01/30/21 [Rx Last Taken 08/07/21] metoprolol succinate 50 mg PO DAILY #30 tab 01/30/21 [Rx Last Taken 08/07/21] Allergy/AdvReac Type Severity Reaction Status Date / Time Penicillins Allergy Hives Verified 08/07/21 21:40 Family History Mother CVA (cerebral vascular accident) CAD (coronary artery disease) Hypertension Heart disease Myocardial infarction Father CAD (coronary artery disease) Heart disease Hypertension Myocardial infarction Surgical History H/O umbilical hernia repair History of bilateral tubal ligation History of eye surgery Hx of cataract surgery S/P lens implant Status post glaucoma surgery Status post tonsillectomy and adenoidectomy Social History household members: none Smoking Status: Current every day smoker tobacco type: cigarettes how long ago did patient quit smoking: Patient reports 1/2 ppd cigarette tobacco use since teen. alcohol intake: never substance use type: does not use ROS ROS Narrative Constitutional: Reports: Malaise, Weakness, Fatigue. Denies: Anorexia, Chills, Fever, Night Sweats, Weight Change Eyes: Denies: Blurred vision, Cataracts, Conjunctivae Inflammation, Pain, Redness, Vision Change HEENT: Denies: Difficulty Hearing, Difficulty Swallowing, Head Aches, Hearing Changes, Sinus Congestion, Sinus Drainage Cardiovascular: Denies: Chest Pain, Orthopnea, Palpitations Respiratory: Denies: Cough, Shortness of breath at rest, Sputum production Gastrointestinal: Admits to jaundice, see HPI denies: Abdominal Pain, Nausea, Vomiting Genitourinary: Denies: Dysuria Musculoskeletal: Denies: Joint Pain, Joint stiffness, Joint swelling, Joint Tenderness Skin: Denies: Rash, Wounds Neurological: Denies: Numbness, Tingling, Focal weakness Vital Signs Vital Signs Vital Signs: 08/07/21 21:38 08/07/21 21:48 Temperature 97.6 F L Temperature Source Temporal Pulse Rate 80 Respiratory Rate 16 Respiratory Effort Normal Blood Pressure 119/95 H Blood Pressure Mean 103 Pulse Ox 99 Oxygen Delivery Method Room Air Weight Weight: 61.235 kg Body Mass Index (BMI) 24.7 Physical Exam Narrative Physical exam: General: Alert, Oriented x3, Cooperative, very jaundiced, appears unwell HEENT: Atraumatic Oral: Moist Mucosa Neck: Supple Lungs: Diminished to auscultation Cardiovascular: HS I+II, regular, no murmurs Abdomen: Bowel Sounds Present, Soft, Non Tender, no palpable organs Extremities: No edema Results Lab / Micro Data Result Diagrams: 08/07/21 22:20 08/07/21 22:20 Labs: Laboratory Results - last 24 hr 08/07/21 22:20: WBC 11.6 H, RBC 4.85, Hgb 13.5, Hct 39.2, MCV 80.8 L, MCH 27.8, MCHC 34.4, RDW Std Deviation 47.2 H, RDW Coeff of Jovani 16.2 H, Plt Count 272, MPV 13.1 H, Immature Gran % (Auto) 0.300, Neut % (Auto) 67.9, Lymph % (Auto) 17.0 L, [place] % (Auto) 11.9 H, Eos % (Auto) 2.1, Baso % (Auto) 0.8, Absolute Neuts (auto) 7.9 H, Absolute Lymphs (auto) 1.96, Nucleated RBC % 0 08/07/21 22:20: PT 15.6 H, INR 1.3 08/07/21 22:20: Sodium 138, Potassium 3.4 L, Chloride 105, Carbon Dioxide 26.0, Anion Gap 7, BUN 11, Creatinine 1.46 H, Estim Creat Clear Calc 35.24, Est GFR (MDRD) Af Amer 48 L, Est GFR (MDRD) Non-Af 40 L, BUN/Creatinine Ratio 7.5 L, Glucose 92, Calcium 9.5, Total Bilirubin 18.70 H*, Direct Bilirubin 13.42 H, AST 1785 H, ALT 1792 H, Alkaline Phosphatase 104, Total Protein 7.4, Albumin 3.0 L, Globulin 4.4 H, Lipase 201 08/07/21 22:20: Total Creatine Kinase 88 08/07/21 22:20: Urine Color Yellow, Urine Clarity Clear, Urine pH 5.0, Ur Specific [place] 1.015, Urine Protein 15 H, Urine Glucose (UA) Normal, Urine Ketones Negative, Urine Occult Blood 10 H, Urine Nitrite Positive H, Urine Bilirubin 6 H, Urine Urobilinogen 4 H, Ur Leukocyte Esterase 25 H, Urine RBC 0 SEEN, Urine WBC 0-5 SEEN, Ur Squamous Epith Cells 0 SEEN, Calcium Oxalate Crystal 1+, Urine Bacteria 1+, Urine Mucus 0 SEEN 08/07/21 22:20: ESR 21 08/07/21 22:20: Lactate Dehydrogenase 534 H, C-React Prot Ext Range 18.50 H Micro: Microbiology 08/07/21 22:20 Nasal Secretion SARS-CoV-2 Antigen (Rapid) - Final Radiology Impression Abdomen/Pelvis CT 08/07/21 21:57 IMPRESSION: Abnormal biliary system with contracted wall enhancing gallbladder and pericholecystic fluid. There is wall enhancement of the nondilated common bile duct. An inflammatory process such as cholangitis possible. On HRT not excluded. Portable lymphadenopathy, borderline-sized lymph nodes in the retroperitoneum and along the gastroesophageal junction. Mild hepatic steatosis suspected with elongated right liver. 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 Electronically Signed: Nicki Churchill MD at 0:41 EST , Chest X-Ray 08/07/21 22:03 IMPRESSION: No radiographic evidence of acute cardiopulmonary disease. Electronically Signed: Toño Ortiz MD at 23:44 EST , Assessment & Plan Assessment/Plan (1) Acute cholestatic jaundice syndrome: (2) ANAND (acute kidney injury): PLAN: 1. Acute cholestatic jaundice, CT of the abdomen and pelvis showed wall enhancement of nondilated common bile duct. Likely secondary to extrinsic compression from lymphadenopathy around the biliary tree Likely secondary to gallbladder carcinoma versus lymphoma Discussed with GI; recommended transfer to tertiary facility; transfer process in the works Obtain MRCP, gentle IV fluids, repeat blood work, IV Zosyn, IV PPI GI consult 2. Hypokalemia, replaced, recheck in a.m. 3. Acute kidney injury, likely prerenal secondary to #1 Admitting creatinine is 1.46, previous creatinine was 1.1 Hold hydrochlorothiazide and lisinopril, continue IV fluids, repeat blood work in a.m. 4. Hypertension, uncontrolled, continue on metoprolol, hold hydrochlorothiazide and lisinopril Hydralazine as needed 5. History of CVA, continue on aspirin, hold statin for now 6. Nicotine dependence, advised to quit, continue replacement 7. DVT prophylaxis Heparin subcu Charges/Coding Visit Charges Inpatient E&M: 79317 Init Hosp L3
--- NOTE | 2021-08-08 02:04 | ED.RN ---
[facility] CALLED FOR TRANSFER PAPER WORK FAXED TO THEM AT THIS TIME
--- NOTE | 2021-08-08 02:14 | ED.RN ---
[facility] CALLED BACK AT THIS TIME FOR DOC TO DOC
[2021-08-08] MEDS: hydrOXYzine PAM 25 MG Capsule 50 MG PO (02:28)
[2021-08-08 02:55] LABS: Acetaminophen (Tylenol) Level < 2.0 ug/mL (10.0-30.0); Salicylate < 1.7 mg/dL (2.8-20.0)
--- NOTE | 2021-08-08 03:05 | MRI_ITS ---
STUDY: MR MRCP WITHOUT CONTRAST REASON FOR EXAM: Female, 51 years old. Cholestatic liver failure -- Abnormal CT, gall bladder TECHNIQUE: Standard MRCP technique was utilized. COMPARISON: None. FINDINGS: Gall Bladder: Contracted gallbladder with gallbladder wall thickening and pericholecystic fluid worrisome for acute cholecystitis, possibly acalculous cholecystitis. Cystic duct: Normal with no demonstrated fixed filling defect. Intrahepatic ducts: Normal visualized intrahepatic ducts with no demonstrated fixed filling defect, dilation or stricture. Common hepatic duct: Normal with no demonstrated fixed filling defect, dilation or stricture. Common bile duct: Normal with no demonstrated fixed filling defect, dilation or stricture. Pancreatic duct: Normal with no demonstrated fixed filling defect, dilation or stricture. MRI/MRCP Abdomen without Contrast IMPRESSION: Suspected acute cholecystitis possibly acalculous cholecystitis. Electronically Signed: Lemuel García MD at 10:33 EST ,
[2021-08-08] MEDS: 0.9% Normal Saline 1,000 ML 150 ML IV ×2 (03:30→10:50)
[2021-08-08] MEDS: Potassium Chloride Oral Tablet 20 MEQ 40 MEQ PO (03:30)
[2021-08-08] MEDS: 0.9% Saline Lock 10 ML Syringe IV ×2 (03:30→09:03)
[2021-08-08 06:26] LABS: Absolute Lymphocyte Count 1.46 X10^3/uL (0.83-4.51); Absolute Neutrophil Count 6.3 X10^3/uL (2.0-7.7); Basophil# 0.08 X10^3/uL; Basophil% 0.8 % (0-1); Eosinophil# 0.22 X10^3/uL; Eosinophils% 2.3 % (0-5); Lymphocyte # 1.46 X10^3/ul (0.83-4.51); Lymphocyte % 15.4 % (19-41); Mean Corp Hgb Conc 33.3 g/dL (32-36); Mean Corpuscular Hgb 27.4 pg (27.0-32.0); Mean Corpuscular Volume 82.3 fL (81-99); Mean Platelet Vol. 12.6 fl (6.2-12.0); Monocyte# 1.36 X10^3/uL; Monocyte% 14.3 % (0-10); NRBC Flagged by Analyzer 0 % (0-5); Neutrophil # 6.33 X10^3/uL (2.7-7.7); Neutrophil % 66.8 % (47-70); Platelet Count 248 K/mm3 (150-450); RBC Distribution Width CV 16.7 % (11.6-14.6); RBC Distribution Width SD 49.5 fl (35.1-43.9); Red Blood Count 4.01 M/mm3 (4.2-5.4); White Blood Count 9.5 K/mm3 (4.4-11.0)
[2021-08-08 06:58] LABS: ALB/GLOB Ratio 0.7 RATIO (0.9-2.4); AST(SGOT) 1346 U/L (15-37); Alanine Aminotransfer ALT/SGPT 1294 U/L (13-56); Albumin, Serum 2.2 g/dL (3.2-5.0); Alkaline Phosphatase 75 U/L (45-117); Anion Gap 4 (5-15); BUN 9 mg/dL (7-18); BUN/Creat Ratio 7.8 RATIO (10-20); Calcium,Total 8.3 mg/dL (8.5-10.1); Chloride 109 mmol/L (98-107); Creatinine, Serum 1.15 mg/dL (0.55-1.02); EST Glomerular Filtration Rate 52 mL/min (>60); Est Glom Filt Rate - Afr Amer 63 mL/min (>60); Estimated Creatinine Clearance 44.75 ml/min; Globulin 3.2 g/dL (2.2-4.2); Glucose 115 mg/dL (74-106); Potassium 3.8 mmol/L (3.5-5.1); Protein, Total 5.4 g/dL (6.4-8.2); Sodium Level 139 mmol/L (136-145)
[2021-08-08 07:43] LABS: Ferritin 1692 ng/mL (8-252)
--- NOTE | 2021-08-08 12:26 | CASEMGMT ---
REBECCA CANTU Assessment: Face to Face with pt for initial transition planning/care coordination assessment. REBECCA CANTU introduced self and role at [facility], pt voices understanding and consents to assessment. Pt is A/O x4. Pt very angry as she cannot eat. She is yelling obscenities. Pt boyfriend present in room but did not share his name. Care providers, pharmacy, and demographics verified/updated. Admitting Dx: Liver failure PCP:[facility] Specialists:Pt denies having any specialists. Preferred Pharmacy: [facility] Insurance: [facility] Prescription Benefit: yes LW/HPOA: Pt denies having a LW/DPOA and denies need for info regarding AD. LNOK: Yashira Flores, dtr Living Arrangements: Pt lives alone in a ground level apt with no steps to enter. Pt reports she is I in ADL's and denies concerns at home. Transportation: Pt does not drive, she uses a bus for transportation. DME/HHC/SNF: Pt denies having any DME, has had [facility] in the past and denies SNF stays. Pt states no concerns with going home at time of dc. Pt states no further concerns/needs. CM to follow. Advised pt to ask CM if any further question/concerns/needs arise, voices understanding. Pt Goal: Home Plan: Home
--- NOTE | 2021-08-08 12:37 | CON.PCM.SX_ITS ---
Assessment & Plan Assessment/Plan (1) Acute acalculous cholecystitis: PLAN: This is a 51-year-old female with several week history of malaise who presents with evidence of acute liver failure. MRCP was done earlier today given a finding of hyperbilirubinemia and was read by radiology as concerning for acute cholecystitis/possible acalculous cholecystitis. Patient does have tenderness in the right upper quadrant, her laboratories and presentation are more consistent with acute obstructive liver failure. While she does not have imaging evidence of ductal obstruction, she does have direct hyperbilirubinemia that is much higher than it is typically seen with choledocholithiasis. In fact, primarily on this account, when patients presenting laboratories give a meld score of 24. Fortunately, patient's INR has remained within normal limits and her LFTs have shown slight downtrend, but remained markedly elevated. Furthermore, both on CT and MR imaging patient has a contracted gallbladder. In this configuration cholecystitis is unlikely (would expect bladder distention) and gallbladder wall thickness is not accurately measured. I suspect this is a primary hepatic process and, as given in HPI, patient has a number of risk factors for hepatitis of various etiologies. Additionally, her imaging suggest the presence of portal adenopathy so neoplastic process remains part of the differential. For these reasons, I do not recommend surgical intervention with cholecystectomy at this time but remain available. (2) Acute liver failure: PLAN: I believe patient's acute liver failure may be the cause of her imaging findings of pericholecystic fluid and agree with current work-up of obtaining hepatitis panel, UDS, and liver biopsy. As above, I do not believe s urgical intervention would be prudent at this time. HPI Consult Data Date of Consult: 08/08/21 HPI Narrative HPI Narrative: ZEKE FLORES, is a 51 F who presented to [facility] earlier today with complaints of general malaise for the last 2 weeks. She recently arrived to the floor following an MRCP study earlier this morning the nursing states that patient has been somnolent since arriving back from this procedure despite not being administered any medications. Patient significant other is present at bedside in the room and assists with the history. Patient states that she has felt generally unwell, but her significant other does confirm she is complained of intermittent abdominal cramping. He adds that she has not been able to eat much during this time of illness as well. On ER intake, patient was noted to have severe hyperbilirubinemia and transaminitis. GI was asked to weigh in on the patient's labs and initially recommended transfer to a tertiary care facility, but has been encouraged by the patient's decrease in LFTs and elected to pursue management?house. Unfortunately, the patient is not able to get a CT-guided biopsy of the liver today due to scheduling conflict. Patient's MRCP from earlier today resulted and was read by radiology as concerning for possible acute cholecystitis versus a calculus cholecystitis given evidence of gallbladder wall thickening and pericholecystic fluid. Patient has no prior history of hepatitis. She denies any blood transfusions. She has received 2 tattoos, but insists these were performed with clean needles. She admits to the use of marijuana but denies any IV drug use. Her significant other does confirm the patient uses methamphetamines, but snorts this and is very averse to needles. However, he confesses that he does use IV drugs and questions whether any contracted disease on his part could be sexually transmitted to Ms. Flores. [facility] Medical History CVA (cerebral vascular accident) Hidradenitis suppurativa Hypertension Left axillary hidradenitis Tobacco use Home Medications aspirin 81 mg PO BREAKFAST #30 tab 01/30/21 [Rx Last Taken 08/07/21] atorvastatin 80 mg PO QHS #30 tab 01/30/21 [Rx Last Taken 08/06/21] hydrochlorothiazide 25 mg PO DAILY #30 tab 01/30/21 [Rx Last Taken 08/07/21] lisinopril 20 mg PO DAILY #30 tab 01/30/21 [Rx Last Taken 08/07/21] metoprolol succinate 50 mg PO DAILY #30 tab 01/30/21 [Rx Last Taken 08/07/21] Allergy/AdvReac Type Severity Reaction Status Date / Time Penicillins Allergy Hives Verified 08/07/21 21:40 Family History Mother CVA (cerebral vascular accident) CAD (coronary artery disease) Hypertension Heart disease Myocardial infarction Father CAD (coronary artery disease) Heart disease Hypertension Myocardial infarction Surgical History H/O umbilical hernia repair History of bilateral tubal ligation History of eye surgery Hx of cataract surgery S/P lens implant Status post glaucoma surgery Status post tonsillectomy and adenoidectomy Social History household members: none Smoking Status: Current every day smoker tobacco type: cigarettes how long ago did patient quit smoking: Patient reports 1/2 ppd cigarette tobacco use since teen. alcohol intake: never substance use type: does not use Physical Exam Const Constitutional Narrative: Patient is jaundiced and lethargic to the point that she has to be aroused to answer nearly every question that is raised Orientation / Consciousness: lethargic Eyes Eyes Narrative: Scleral icterus present GI GI Narrative: Nondistended, soft, tender to palpation in the right upper quadrant with some voluntary guarding. Negative Tracey sign. Skin General Skin Exam: jaundice Lab / Micro Data Result Diagrams: 08/08/21 05:50 08/08/21 05:50 Labs: Laboratory Results - last 24 hr 08/07/21 22:20: WBC 11.6 H, RBC 4.85, Hgb 13.5, Hct 39.2, MCV 80.8 L, MCH 27.8, MCHC 34.4, RDW Std Deviation 47.2 H, RDW Coeff of Jovani 16.2 H, Plt Count 272, MPV 13.1 H, Immature Gran % (Auto) 0.300, Neut % (Auto) 67.9, Lymph % (Auto) 17.0 L, [place] % (Auto) 11.9 H, Eos % (Auto) 2.1, Baso % (Auto) 0.8, Absolute Neuts (auto) 7.9 H, Absolute Lymphs (auto) 1.96, Nucleated RBC % 0 08/07/21 22:20: PT 15.6 H, INR 1.3 08/07/21 22:20: Sodium 138, Potassium 3.4 L, Chloride 105, Carbon Dioxide 26.0, Anion Gap 7, BUN 11, Creatinine 1.46 H, Estim Creat Clear Calc 35.24, Est GFR (MDRD) Af Amer 48 L, Est GFR (MDRD) Non-Af 40 L, BUN/Creatinine Ratio 7.5 L, Glucose 92, Calcium 9.5, Total Bilirubin 18.70 H*, Direct Bilirubin 13.42 H, AST 1785 H, ALT 1792 H, Alkaline Phosphatase 104, Total Protein 7.4, Albumin 3.0 L, Globulin 4.4 H, Lipase 201 08/07/21 22:20: Total Creatine Kinase 88 08/07/21 22:20: Urine Color Yellow, Urine Clarity Clear, Urine pH 5.0, Ur Specific [place] 1.015, Urine Protein 15 H, Urine Glucose (UA) Normal, Urine Ketones Negative, Urine Occult Blood 10 H, Urine Nitrite Positive H, Urine Bilirubin 6 H, Urine Urobilinogen 4 H, Ur Leukocyte Esterase 25 H, Urine RBC 0 SEEN, Urine WBC 0-5 SEEN, Ur Squamous Epith Cells 0 SEEN, Calcium Oxalate Crystal 1+, Urine Bacteria 1+, Urine Mucus 0 SEEN 08/07/21 22:20: ESR 21 08/07/21 22:20: Lactate Dehydrogenase 534 H, C-React Prot Ext Range 18.50 H 08/07/21 23:08: Salicylates < 1.7 L, Acetaminophen < 2.0 L 08/08/21 05:50: WBC 9.5, RBC 4.01 L, Hgb 11.0 L, Hct 33.0 L, MCV 82.3, MCH 27.4, MCHC 33.3, RDW Std Deviation 49.5 H, RDW Coeff of Jovani 16.7 H, Plt Count 248, MPV 12.6 H, Immature Gran % (Auto) 0.400, Neut % (Auto) 66.8, Lymph % (Auto) 15.4 L, [place] % (Auto) 14.3 H, Eos % (Auto) 2.3, Baso % (Auto) 0.8, Absolute Neuts (auto) 6.3, Absolute Lymphs (auto) 1.46, Nucleated RBC % 0 08/08/21 05:50: Sodium 139, Potassium 3.8, Chloride 109 H, Carbon Dioxide 26.0, Anion Gap 4 L, BUN 9, Creatinine 1.15 H, Estim Creat Clear Calc 44.75, Est GFR (MDRD) Af Amer 63, Est GFR (MDRD) Non-Af 52 L, BUN/Creatinine Ratio 7.8 L, Glucose 115 H, Calcium 8.3 L, Total Bilirubin 13.50 H, AST 1346 H, ALT 1294 H, Alkaline Phosphatase 75, Total Protein 5.4 L, Albumin 2.2 L, Globulin 3.2, Albumin/Globulin Ratio 0.7 L 08/08/21 05:50: Ferritin 1692 H 08/08/21 07:40: Lactic Acid 1.0 08/08/21 07:40: Ammonia 31.0 Micro: Microbiology 08/07/21 22:20 Urine, Clean Catch Urine Culture - Preliminary Gram negative kelsie 08/07/21 22:20 Nasal Secretion SARS-CoV-2 Antigen (Rapid) - Final Radiology Impression Abdomen/Pelvis CT 08/07/21 21:57 IMPRESSION: Abnormal biliary system with contracted wall enhancing gallbladder and pericholecystic fluid. There is wall enhancement of the nondilated common bile duct. An inflammatory process such as cholangitis possible. On HRT not excluded. Portable lymphadenopathy, borderline-sized lymph nodes in the retroperitoneum and along the gastroesophageal junction. Mild hepatic steatosis suspected with elongated right liver. 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 Electronically Signed: Nicki Churchill MD at 0:41 EST , Chest X-Ray 08/07/21 22:03 IMPRESSION: No radiographic evidence of acute cardiopulmonary disease. Electronically Signed: Toño Ortiz MD at 23:44 EST , MRCP 08/08/21 03:05 IMPRESSION: Suspected acute cholecystitis possibly acalculous cholecystitis. Electronically Signed: Lemuel García MD at 10:33 EST , Charges/Coding Visit Charges Inpatient E&M: 74810 Init Hosp L2
[2021-08-08 13:06] LABS: Base Excess -3 mmol/L (-2 to +2); Bicarbonate 22.5 mmol/L (22-26); Blood Gas Specimen Type ART; O2 Delivery Device Room Air; PO2 79 mmHG (75-100); SITE L Brach; SO2 95 % (95-99); Total Carbon Dioxide 24 mmol/L; pCO2 38.6 mmHg (35-45); pH 7.37 (7.35-7.45)
--- NOTE | 2021-08-08 13:19 | CASEMGMT ---
According to [facility]'s website, the following tertiary facilities are in network: [facility], [place], [facility], [facility], [facility], [facility] and .
--- NOTE | 2021-08-08 13:43 | PN.HOSP_ITS ---
Subjective Subjective Patient indicates she has been ill for about 2 weeks. She states she feels like shit. She reports that she is had intermittent nausea and vomiting with loose stools. She currently is frustrated as she would like something to eat. She states she feels achy all over. She denies any sick contacts. She states t hat she works in a [employer] but nobody else there is ill with similar symptoms. She does admit to methamphetamine use which she has used in the last 3 days. Denies any current cocaine use but has a history of cocaine abuse. Objective Data Objective Data Vital Signs: Vital Signs Temp Pulse Resp BP Pulse Ox 97.9 F 71 16 152/86 H 94 08/08/21 07:49 08/08/21 08:07 08/08/21 07:49 08/08/21 07:49 08/08/21 07:49 Oxygen Delivery Method Room Air Weight: 66.3 kg Body Mass Index (BMI) 26.7 Intake & Output: Intake and Output for Last 24 Hours 08/06/21 08/07/21 08/08/21 23:59 23:59 23:59 Intake Total 50 / 1945.0 / 1945.0 Output Total 0 / 0 Balance 50 / 50 1945.0 / 1945.0 Lab / Micro Data Result Diagrams: 08/08/21 05:50 08/08/21 05:50 Labs: Laboratory Results - last 24 hr 08/07/21 22:20: WBC 11.6 H, RBC 4.85, Hgb 13.5, Hct 39.2, MCV 80.8 L, MCH 27.8, MCHC 34.4, RDW Std Deviation 47.2 H, RDW Coeff of Jovani 16.2 H, Plt Count 272, MPV 13.1 H, Immature Gran % (Auto) 0.300, Neut % (Auto) 67.9, Lymph % (Auto) 17.0 L, [place] % (Auto) 11.9 H, Eos % (Auto) 2.1, Baso % (Auto) 0.8, Absolute Neuts (auto) 7.9 H, Absolute Lymphs (auto) 1.96, Nucleated RBC % 0 08/07/21 22:20: PT 15.6 H, INR 1.3 08/07/21 22:20: Sodium 138, Potassium 3.4 L, Chloride 105, Carbon Dioxide 26.0, Anion Gap 7, BUN 11, Creatinine 1.46 H, Estim Creat Clear Calc 35.24, Est GFR (MDRD) Af Amer 48 L, Est GFR (MDRD) Non-Af 40 L, BUN/Creatinine Ratio 7.5 L, Glucose 92, Calcium 9.5, Total Bilirubin 18.70 H*, Direct Bilirubin 13.42 H, AST 1785 H, ALT 1792 H, Alkaline Phosphatase 104, Total Protein 7.4, Albumin 3.0 L, Globulin 4.4 H, Lipase 201 08/07/21 22:20: Total Creatine Kinase 88 08/07/21 22:20: Urine Color Yellow, Urine Clarity Clear, Urine pH 5.0, Ur Specific [place] 1.015, Urine Protein 15 H, Urine Glucose (UA) Normal, Urine Ketones Negative, Urine Occult Blood 10 H, Urine Nitrite Positive H, Urine Bilirubin 6 H, Urine Urobilinogen 4 H, Ur Leukocyte Esterase 25 H, Urine RBC 0 SEEN, Urine WBC 0-5 SEEN, Ur Squamous Epith Cells 0 SEEN, Calcium Oxalate Crystal 1+, Urine Bacteria 1+, Urine Mucus 0 SEEN 08/07/21 22:20: ESR 21 08/07/21 22:20: Lactate Dehydrogenase 534 H, C-React Prot Ext Range 18.50 H 08/07/21 23:08: Salicylates < 1.7 L, Acetaminophen < 2.0 L 08/08/21 05:50: WBC 9.5, RBC 4.01 L, Hgb 11.0 L, Hct 33.0 L, MCV 82.3, MCH 27.4, MCHC 33.3, RDW Std Deviation 49.5 H, RDW Coeff of Jovani 16.7 H, Plt Count 248, MPV 12.6 H, Immature Gran % (Auto) 0.400, Neut % (Auto) 66.8, Lymph % (Auto) 15.4 L, [place] % (Auto) 14.3 H, Eos % (Auto) 2.3, Baso % (Auto) 0.8, Absolute Neuts (auto) 6.3, Absolute Lymphs (auto) 1.46, Nucleated RBC % 0 08/08/21 05:50: Sodium 139, Potassium 3.8, Chloride 109 H, Carbon Dioxide 26.0, Anion Gap 4 L, BUN 9, Creatinine 1.15 H, Estim Creat Clear Calc 44.75, Est GFR (MDRD) Af Amer 63, Est GFR (MDRD) Non-Af 52 L, BUN/Creatinine Ratio 7.8 L, Glucose 115 H, Calcium 8.3 L, Total Bilirubin 13.50 H, AST 1346 H, ALT 1294 H, Alkaline Phosphatase 75, Total Protein 5.4 L, Albumin 2.2 L, Globulin 3.2, Albumin/Globulin Ratio 0.7 L 08/08/21 05:50: Ferritin 1692 H 08/08/21 07:40: Lactic Acid 1.0 08/08/21 07:40: Ammonia 31.0 Micro: Microbiology 08/07/21 22:20 Urine, Clean Catch Urine Culture - Preliminary Gram negative kelsie 08/07/21 22:20 Nasal Secretion SARS-CoV-2 Antigen (Rapid) - Final ABG Data ABG results: ABG 08/08/21 12:58 Specimen Type ART Sample Site L Brach pH 7.37 Bicarbonate Actual 22.5 Total CO2 24 Base Excess -3 L O2 Saturation 95 ABG pCO2 38.6 ABG pO2 79 O2 Delivery Device Room Air Radiography Diagnostic Testing: Radiology Impression Abdomen/Pelvis CT 08/07/21 21:57 IMPRESSION: Abnormal biliary system with contracted wall enhancing gallbladder and pericholecystic fluid. There is wall enhancement of the nondilated common bile duct. An inflammatory process such as cholangitis possible. On HRT not excluded. Portable lymphadenopathy, borderline-sized lymph nodes in the retroperitoneum and along the gastroesophageal junction. Mild hepatic steatosis suspected with elongated right liver. 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 Electronically Signed: Nicki Churchill MD at 0:41 EST , Chest X-Ray 08/07/21 22:03 IMPRESSION: No radiographic evidence of acute cardiopulmonary disease. Electronically Signed: Toño Ortiz MD at 23:44 EST , [facility] 08/08/21 03:05 IMPRESSION: Suspected acute cholecystitis possibly acalculous cholecystitis. Electronically Signed: Lemuel García MD at 10:33 EST , Physical Exam Const alert and oriented x3 Constitutional Narrative: Middle-aged white female who is markedly jaundice sitting up in bed tearful at times, appears ill but nontoxic Exam Limitations: no limitations Nutritional Appearance: overweight HEENT head/scalp atraumatic and moist oral mucous membranes HEENT Narrative: Dentition is poor, Mallampati is 2, no thrush Head and Scalp: normocephalic Eyes PERRL, EOMs intact bilaterally and conjunctivae normal Eyes Narrative: Significant scleral icterus Neck no lymphadenopathy, supple and no JVD Neck Narrative: Trachea midline, no thyroid enlargement Resp normal respiratory effort, no retractions, no use of accessory muscles and clear to auscultation bilaterally Resp Narrative: Diffusely diminished but clear Auscultation: Negative for crackles, rales, rhonchi or wheezes Cardio regular rate, regular rhythm, S1 normal heart sound, S2 normal heart sound, no murmurs, no rub, no gallops and no JVD GI normal to inspection, nondistended, normoactive bowel sounds, soft to palpation, non-distended and hepatosplenomegaly Extremity full ROM and no clubbing, cyanosis or edema Peripheral Pulses: Yes pulses 2+ throughout Skin no rashes or lesions noted, no wounds, skin turgor normal, no jaundice, no petechiae and no mottling Skin Narrative: Markedly jaundiced Neuro oriented x3, CN's II-XII intact bilaterally, moves all extremities and no focal motor deficits Sensorium / Orientation: awake and alert Speech: speech normal Motor Exam: strength 5/5 throughout Psych Psych Narrative: Agitated and appears frustrated Assessment & Plan Assessment/Plan (1) Elevated ferritin level: (2) Hyperbilirubinemia: (3) Acute liver failure: (4) UTI (urinary tract infection): (5) Acute acalculous cholecystitis: (6) Normocytic anemia: (7) Methamphetamine use: PLAN: Acute liver failure with hyperbilirubinemia -Etiology is unclear at this time however extensive work-up is in progress -MRCP was suggestive of a calculus cholecystitis -Transaminases and bilirubin are slowly improving -Liver biopsy ordered by GI -CK pending -Ferritin is elevated however I am wondering if this is acute phase reactant -Continue IV fluids but reduce rate to 75 cc/h -Ok per gastroenterology for a p.o. diet--> cardiac diet initiated -Hepatitis studies are pending -Tox screen is pending -Ammonia level is normal -ABG is unremarkable ANAND -Baseline renal function appears to fluctuate--> 1.0-1.4 -Slightly elevated on admission at 1.46 but improved to 1.15 today -Continue IV hydration -Avoid nephrotoxins Acute acalculous cholecystitis -General surgery was consulted -No current plans for surgical intervention -Monitor clinically Gram-negative urinary tract infection -Patient was given ceftriaxone in the emergency department however this is predominantly cleared by the liver and she has allergies to penicillins -Start ciprofloxacin IV 400 twice daily -Wait culture and sensitivities -Blood cultures pending Methamphetamine abuse -Last use was reportedly about 3 days ago -Patient denies any other substances other than tobacco -? If related to acute liver failure with regards to ischemia History of stroke -January 2021 -Continue aspirin -Continue risk factor modifications -No marked residual deficits Hypertension -Hold lisinopril -Continue metoprolol -Hold hydrochlorothiazide Hyperlipidemia -Hold statin with transaminitis -CK pending Tobacco abuse -Continue patch -Recommend cessation DVT prophylaxis -Heparin subcu twice daily -SCDs CODE STATUS -We will have to verify as it does not appear 1 was obtained on admission
[2021-08-08 14:40] LABS: International Normalized Ratio 1.5; Partial Thromboplast Time 35.6 Seconds (24.1-36.2)
[2021-08-08] MEDS: Metoprolol(XL)Succ 50 MG Tablet PO (15:13)
[2021-08-08] MEDS: Ciprofloxacin 400 MG/200 ML BAG 200 MG IV ×2 (15:14→22:03)
[2021-08-08] MEDS: Heparin Injection (Vial) 5,000 UNIT/ML VIAL 5000 UNIT SC (15:14)
[2021-08-08 18:10] LABS: Amphetamine Urine VISTA POSITIVE (<1000 ng/mL); Barbiturate Urine VISTA NEGATIVE (< 200 ng/mL); Benzodiazepine Urine VISTA NEGATIVE (< 200 ng/mL); Cocaine Urine VISTA NEGATIVE (< 300 ng/mL); Ecstacy Urine VISTA NEGATIVE (< 500 ng/mL); Methadone Urine VISTA NEGATIVE (< 300 ng/mL); PCP Urine VISTA NEGATIVE (< 25 ng/mL); THC Urine VISTA POSITIVE (< 50 ng/mL); Vista UDS pH Range 5
[2021-08-08 18:16] LABS: Allen Test Positive; Base Excess -7 mmol/L (-2 to +2); Bicarbonate 17.1 mmol/L (22-26); Blood Gas Specimen Type ART; O2 Delivery Device Room Air; PO2 135 mmHG (75-100); SITE R Radial; SO2 99 % (95-99); Total Carbon Dioxide 18 mmol/L; pCO2 25.9 mmHg (35-45); pH 7.43 (7.35-7.45)
--- NOTE | 2021-08-08 19:40 | CON.PCM.GI_ITS ---
HPI Consult Data Date of Consult: 08/08/21 HPI Narrative HPI Narrative: ZEKE RAY, is a 51 F who presents from home with worsening lethargy and weakness. Patient says that she has not been feeling like herself for the last 2 weeks. She does admit to marijuana and methamphetamine usage. She said that she used to use cocaine but has not used it for a long time. When I asked her what was a long time she said about a month ago. She denies any use of Tylenol on a daily basis. She says she takes it only for pain. She does take a daily aspirin for migraines. She noticed that she started getting yellow approximately 2 days ago. She denied any IV drug abuse. Vitals in the ED show blood pressure 119/95, temperature 97.6 F, heart rate 75, SPO2 95% on 2 L of oxygen. Her WBC count 11.6, hemoglobin 13.5, platelet 270. Na 138, K 3.4, Cl 105, HCo3 26, BUN 11, Cr 1.46, baseline Cr 1.1. Total bilirubin 18.7, direct bilirubin 13.42, AST 1785, ALT 1792, ALP 104, LDH 534, CRP 18.50, ESR is normal. Acetaminophen level less than 2, salicylate level less than 1.7, hepatitis profile is pending. Rapid COVID-19 antigen test is negative Repeat liver function tests and liver enzymes are improving with the bilirubin down to 13. Her AST and ALT also improving. Admitting chest x-ray showed no acute cardiopulmonary process. CT abdomen and pelvis showed abnormal biliary system with contracted wall. Patient also has multiple lymphadenopathy in the retroperitoneum and along the gastro-esophageal junction. She got an MRI did not show any signs of biliary abnormalities or signs of acute hepatitis. It did show signs of possible acalculous cholecystitis. Her ferritin was elevated at 1682, her blood gas had a pH of 7.43 with normal oxygen saturation and CO2. Her PTT and PT are prolonged. [facility] Medical History CVA (cerebral vascular accident) Hidradenitis suppurativa Hypertension Left axillary hidradenitis Tobacco use Home Medications aspirin 81 mg PO BREAKFAST #30 tab 01/30/21 [Rx Last Taken 08/07/21] atorvastatin 80 mg PO QHS #30 tab 01/30/21 [Rx Last Taken 08/06/21] hydrochlorothiazide 25 mg PO DAILY #30 tab 01/30/21 [Rx Last Taken 08/07/21] lisinopril 20 mg PO DAILY #30 tab 01/30/21 [Rx Last Taken 08/07/21] metoprolol succinate 50 mg PO DAILY #30 tab 01/30/21 [Rx Last Taken 08/07/21] Allergy/AdvReac Type Severity Reaction Status Date / Time Penicillins Allergy Hives Verified 08/07/21 21:40 Family History Mother CVA (cerebral vascular accident) CAD (coronary artery disease) Hypertension Heart disease Myocardial infarction Father CAD (coronary artery disease) Heart disease Hypertension Myocardial infarction Surgical History H/O umbilical hernia repair History of bilateral tubal ligation History of eye surgery Hx of cataract surgery S/P lens implant Status post glaucoma surgery Status post tonsillectomy and adenoidectomy Social History household members: none Smoking Status: Current every day smoker tobacco type: cigarettes how long ago did patient quit smoking: Patient reports 1/2 ppd cigarette tobacco use since teen. alcohol intake: never substance use type: does not use ROS Review of Systems ROS Unobtainable: other Constitutional Constitutional: Denies fatigue, fever(s), poor appetite, weight gain or weight loss ENT HEENT: Denies mouth lesions Cardiovascular Cardiovascular: Denies abdominal bloating, abdominal edema or abdominal pain Respiratory/Chest Respiratory/Chest: Denies change in mental status, change in phlegm color, chest congestion or chest tightness Gastrointestinal Gastrointestinal: Denies belching, bloating, change in bowel habits, change in stool character, chewing difficulty, coffee ground emesis, constipation, cramping, diarrhea, dyspepsia, dysphagia, early satiety, excessive flatus, fecal incontinence, heartburn, hematemesis, hematochezia, hemorrhoids, loose stools, melena, nausea, odynophagia, rectal bleeding, tenesmus, vomiting or weight changes Genitourinary Genitourinary: Denies abdominal discomfort, burning urination or itching Musculoskeletal Musculoskeletal: Reports as per HPI; Denies muscle weakness or myalgias Integumentary Integumentary: Denies jaundice Neurologic Neurologic: Denies lack of coordination or weakness Psychiatric Psychiatric: Denies confusion, depression, memory loss, mood swings, paranoia or suicidal ideation Endocrine Endocrinology: Denies systems reviewed and no addt'l complaints, except as documented Hematologic/Lymphatic Hematologic/Lymphatic: Denies anemia, easy bleeding, easy bruising or lymphadenopathy Allergic/Immunologic Allergic/Immunologic: Denies systems reviewed and no addt'l complaints, except as documented Physical Exam Const alert General Appearance: cooperative Orientation / Consciousness: oriented to person HEENT hearing grossly normal bilaterally Head and Scalp: normal to inspection Face and Sinus: face symmetric Nose: external nose normal Mouth: oral and palatal mucosa normal Eyes conjunctivae normal General Eye: normal appearance of both eyes Neck full ROM General: normal visual inspection Lymph Lymphatic: no lymphadenopathy noted Chest inspection of chest normal and palpation of chest normal Chest: symmetrical chest wall rise Resp normal respiratory effort Effort and Inspection: able to speak in complete sentences Cardio regular rate GI non-distended Percussion: normal to percussion Rectal Exam: deferred Neuro Speech: speech normal Gait (Neuro): normal gait Lab / Micro Data Result Diagrams: 08/08/21 05:50 08/08/21 05:50 Labs: Laboratory Results - last 24 hr 08/07/21 22:20: WBC 11.6 H, RBC 4.85, Hgb 13.5, Hct 39.2, MCV 80.8 L, MCH 27.8, MCHC 34.4, RDW Std Deviation 47.2 H, RDW Coeff of Jovani 16.2 H, Plt Count 272, MPV 13.1 H, Immature Gran % (Auto) 0.300, Neut % (Auto) 67.9, Lymph % (Auto) 17.0 L, [place] % (Auto) 11.9 H, Eos % (Auto) 2.1, Baso % (Auto) 0.8, Absolute Neuts (auto) 7.9 H, Absolute Lymphs (auto) 1.96, Nucleated RBC % 0 08/07/21 22:20: PT 15.6 H, INR 1.3 08/07/21 22:20: Sodium 138, Potassium 3.4 L, Chloride 105, Carbon Dioxide 26.0, Anion Gap 7, BUN 11, Creatinine 1.46 H, Estim Creat Clear Calc 35.24, Est GFR (MDRD) Af Amer 48 L, Est GFR (MDRD) Non-Af 40 L, BUN/Creatinine Ratio 7.5 L, Glucose 92, Calcium 9.5, Total Bilirubin 18.70 H*, Direct Bilirubin 13.42 H, AST 1785 H, ALT 1792 H, Alkaline Phosphatase 104, Total Protein 7.4, Albumin 3.0 L, Globulin 4.4 H, Lipase 201 08/07/21 22:20: Total Creatine Kinase 88 08/07/21 22:20: Urine Color Yellow, Urine Clarity Clear, Urine pH 5.0, Ur Specific [place] 1.015, Urine Protein 15 H, Urine Glucose (UA) Normal, Urine Ketones Negative, Urine Occult Blood 10 H, Urine Nitrite Positive H, Urine Bilirubin 6 H, Urine Urobilinogen 4 H, Ur Leukocyte Esterase 25 H, Urine RBC 0 SEEN, Urine WBC 0-5 SEEN, Ur Squamous Epith Cells 0 SEEN, Calcium Oxalate Crystal 1+, Urine Bacteria 1+, Urine Mucus 0 SEEN 08/07/21 22:20: ESR 21 08/07/21 22:20: Lactate Dehydrogenase 534 H, C-React Prot Ext Range 18.50 H 08/07/21 23:08: Salicylates < 1.7 L, Acetaminophen < 2.0 L 08/08/21 05:50: WBC 9.5, RBC 4.01 L, Hgb 11.0 L, Hct 33.0 L, MCV 82.3, MCH 27.4, MCHC 33.3, RDW Std Deviation 49.5 H, RDW Coeff of Jovani 16.7 H, Plt Count 248, MPV 12.6 H, Immature Gran % (Auto) 0.400, Neut % (Auto) 66.8, Lymph % (Auto) 15.4 L, [place] % (Auto) 14.3 H, Eos % (Auto) 2.3, Baso % (Auto) 0.8, Absolute Neuts (auto) 6.3, Absolute Lymphs (auto) 1.46, Nucleated RBC % 0 08/08/21 05:50: Sodium 139, Potassium 3.8, Chloride 109 H, Carbon Dioxide 26.0, Anion Gap 4 L, BUN 9, Creatinine 1.15 H, Estim Creat Clear Calc 44.75, Est GFR (MDRD) Af Amer 63, Est GFR (MDRD) Non-Af 52 L, BUN/Creatinine Ratio 7.8 L, Glucose 115 H, Calcium 8.3 L, Total Bilirubin 13.50 H, AST 1346 H, ALT 1294 H, Alkaline Phosphatase 75, Total Protein 5.4 L, Albumin 2.2 L, Globulin 3.2, Albumin/Globulin Ratio 0.7 L 08/08/21 05:50: Ferritin 1692 H 08/08/21 07:40: PT 17.0 H, INR 1.5, APTT 35.6 08/08/21 07:40: Lactic Acid 1.0 08/08/21 07:40: Ammonia 31.0 08/08/21 17:40: Urine Opiates Screen POSITIVE H, Urine Methadone Screen NEGATIVE, Ur Barbiturates Screen NEGATIVE, Ur Phencyclidine Scrn NEGATIVE, Ur Amphetamines Screen POSITIVE H, U Methamphetamin-MDMA NEGATIVE, U Benzodiazepines Scrn NEGATIVE, Urine Cocaine Screen NEGATIVE, U Cannabinoids Screen POSITIVE H, Ur Drug Screen Comment Micro: Microbiology 08/07/21 22:20 Urine, Clean Catch Urine Culture - Preliminary Gram negative kelsei 08/07/21 22:20 Nasal Secretion SARS-CoV-2 Antigen (Rapid) - Final ABG Data ABG results: ABG 08/08/21 08/08/21 12:58 18:10 Specimen Type ART ART Sample Site L Brach R Radial pH 7.37 7.43 Bicarbonate Actual 22.5 17.1 L Total CO2 24 18 Base Excess -3 L -7 L O2 Saturation 95 99 ABG pCO2 38.6 25.9 L ABG pO2 79 135 H Rigoberto Test Positive O2 Delivery Device Room Air Room Air Radiology Impression Abdomen/Pelvis CT 08/07/21 21:57 IMPRESSION: Abnormal biliary system with contracted wall enhancing gallbladder and pericholecystic fluid. There is wall enhancement of the nondilated common bile duct. An inflammatory process such as cholangitis possible. On HRT not excluded. Portable lymphadenopathy, borderline-sized lymph nodes in the retroperitoneum and along the gastroesophageal junction. Mild hepatic steatosis suspected with elongated right liver. 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 Electronically Signed: Nicki Churchill MD at 0:41 EST Reading Location ID and State: , Service support , Chest X-Ray 08/07/21 22:03 IMPRESSION: No radiographic evidence of acute cardiopulmonary disease. Electronically Signed: Toño Ortiz MD at 23:44 EST , MRCP 08/08/21 03:05 IMPRESSION: Suspected acute cholecystitis possibly acalculous cholecystitis. Electronically Signed: Lemuel García MD at 10:33 EST , Assessment & Plan Assessment/Plan (1) Acute liver failure: PLAN: In the setting of lymphadenopathy the differential diagnosis for acute liver failure would be acute ischemic hepatitis in the setting of chronic liver disease possibly secondary to chronic hepatitis C or hemochromatosis, amyloidosis, sarcoidosis due to the elevated ferritin level. Also the elevated ferritin level can be secondary to the acute phase reactant. I would correspond with elevated LDH, CRP, ESR. She is still very sleepy. Despite her ammonia level be okay I would recommend lactulose 20 cc twice daily. I will recheck her coagulation profile again tonight and her LFTs. Also dual diagnosis would be immune hepatitis. Although would not expect her LFTs to improve so fast if it was just autoimmune hepatitis. Other viral hepatitis this will be acute hepatitis B or acute hepatitis A. She does not have any diarrhea which would make it acute hepatitis A less likely. If she has hepatitis B then it could be concomitant hepatitis D. We will also check for acute hepatitis secondary to EBV and CMV. I will start her on N-acetylcysteine to help replete her glutathione stores.. I will hold off on steroids at this time unless her LFTs and liver enzymes taper off. At this time she has a autoimmune hepatitis core 12 6 which would recommend steroids however her LFTs are improving. I will also give her 5 mg of vitamin K for the elevated INR. She should be on 500 cc of IV fluids an hour due to her increased BUN/creatinine ratio. Prognosis is still guarded. Work-up in progress. Charges/Coding Visit Charges Inpatient E&M: 20670 Init Hosp L3
[2021-08-08] MEDS: 0.9% Normal Saline 1,000 ML 70 ML IV (19:47)
[2021-08-08 20:27] LABS: Erythrocyte Sedimentation Rate 9 mm/hr (0-30)
[2021-08-08 20:40] LABS: International Normalized Ratio 1.5; Partial Thromboplast Time 35.8 Seconds (24.1-36.2); Prothrombin Time (Protime)PT. 17.5 SECONDS (11.7-14.9)
[2021-08-08 20:44] LABS: ALB/GLOB Ratio 0.6 RATIO (0.9-2.4); AST(SGOT) 1764 U/L (15-37); Alanine Aminotransfer ALT/SGPT 1378 U/L (13-56); Alkaline Phosphatase 78 U/L (45-117); Anion Gap 4 (5-15); BUN 7 mg/dL (7-18); BUN/Creat Ratio 5.9 RATIO (10-20); Calcium,Total 7.8 mg/dL (8.5-10.1); Chloride 112 mmol/L (98-107); Creatinine, Serum 1.19 mg/dL (0.55-1.02); EST Glomerular Filtration Rate 50 mL/min (>60); Est Glom Filt Rate - Afr Amer 61 mL/min (>60); Estimated Creatinine Clearance 43.24 ml/min; Globulin 3.4 g/dL (2.2-4.2); Glucose 108 mg/dL (74-106); LDH 379 U/L (84-246); Potassium 4.1 mmol/L (3.5-5.1); Protein, Total 5.4 g/dL (6.4-8.2); Sodium Level 138 mmol/L (136-145)
[2021-08-08 20:46] LABS: Lactic Acid 1.8 mmol/L (0.4-1.9)
[2021-08-08] MEDS: Acetylcysteine (Mucomyst Oral) 20% SOLN 4640 MG PO (21:32)
[2021-08-08] MEDS: Lactulose 20 GM/30 ML UDC PO (21:32)
[2021-08-09] VITALS (16 sets, daily range): BP systolic 137–167; BP diastolic 73–88; PULSE 60–74; RESP 16–20; TEMP 36.5–36.9; O2SAT 92–98
[2021-08-09] MEDS: Acetylcysteine (Mucomyst Oral) 20% SOLN 4640 MG PO ×5 (00:08→20:57)
[2021-08-09 06:15] LABS: Absolute Neutrophil Count 7.1 X10^3/uL (2.0-7.7); Basophil# 0.06 X10^3/uL; Basophil% 0.6 % (0-1); Eosinophils% 3.7 % (0-5); Hematocrit 34.9 % (37-47); Lymphocyte % 15.8 % (19-41); Mean Corp Hgb Conc 34.4 g/dL (32-36); Mean Corpuscular Hgb 28.2 pg (27.0-32.0); Mean Corpuscular Volume 82.1 fL (81-99); Mean Platelet Vol. 12.6 fl (6.2-12.0); Monocyte# 1.42 X10^3/uL; Monocyte% 13.2 % (0-10); NRBC Flagged by Analyzer 0 % (0-5); Neutrophil # 7.12 X10^3/uL (2.7-7.7); Neutrophil % 66.3 % (47-70); Platelet Count 272 K/mm3 (150-450); RBC Distribution Width CV 17.1 % (11.6-14.6); RBC Distribution Width SD 50.5 fl (35.1-43.9); Red Blood Count 4.25 M/mm3 (4.2-5.4); White Blood Count 10.7 K/mm3 (4.4-11.0)
[2021-08-09 06:36] LABS: International Normalized Ratio 1.4; Prothrombin Time (Protime)PT. 16.6 SECONDS (11.7-14.9)
[2021-08-09 07:00] LABS: ALB/GLOB Ratio 0.5 RATIO (0.9-2.4); AST(SGOT) 1660 U/L (15-37); Alanine Aminotransfer ALT/SGPT 1348 U/L (13-56); Albumin, Serum 1.9 g/dL (3.2-5.0); Alkaline Phosphatase 74 U/L (45-117); Anion Gap 7 (5-15); BUN 6 mg/dL (7-18); BUN/Creat Ratio 5.5 RATIO (10-20); Chloride 109 mmol/L (98-107); EST Glomerular Filtration Rate 55 mL/min (>60); Est Glom Filt Rate - Afr Amer 67 mL/min (>60); Estimated Creatinine Clearance 46.78 ml/min; Globulin 3.5 g/dL (2.2-4.2); Glucose 97 mg/dL (74-106); Protein, Total 5.4 g/dL (6.4-8.2); Sodium Level 138 mmol/L (136-145)
[2021-08-09 08:09] LABS: Hepatitis A IgM Antibody Negative (Negative); Hepatitis B Core AB IgM Positive (Negative)
[2021-08-09] MEDS: Ciprofloxacin 400 MG/200 ML BAG 200 MG IV ×2 (09:01→21:34)
[2021-08-09 09:04] LABS: Hep C Antibodies <0.1 s/co ratio (0.0-0.9)
[2021-08-09 09:05] LABS: HEPATITIS B SURFACE AG Positive (Negative)
[2021-08-09] MEDS: Metoprolol(XL)Succ 50 MG Tablet PO (09:30)
[2021-08-09] MEDS: Lactulose 20 GM/30 ML UDC PO ×2 (09:30→20:58)
[2021-08-09] MEDS: Heparin Injection (Vial) 5,000 UNIT/ML VIAL 5000 UNIT SC ×2 (09:31→20:58)
[2021-08-09] MEDS: 0.9% Normal Saline 1,000 ML 100 ML IV (10:40)
--- NOTE | 2021-08-09 10:57 | PCM.PN.BLA ---
Progress Note Patient seen and examined during AM rounds. She remains very somnolent, but does eventually arouse and responds appropriately. She states she is feeling somewhat better today. Physical Exam GI GI Narrative: Decreased tenderness to palpation over the right upper quadrant. Assessment & Plan Assessment/Plan (1) Acute liver failure: PLAN: Patient's abdominal tenderness has improved today. Further believe this is a primary liver issue and unlikely to represent cholecystitis. Confirming this suspicion are positive hepatitis B antigen and core assays. Continue management per hospitalist service and gastroenterology. Surgery to remain available should any new concerns arise. Visit Charges Inpatient E&M: 15789 Subs Hosp L2
--- NOTE | 2021-08-09 14:02 | PN.HOSP_ITS ---
Subjective Subjective No significant issues overnight. Liver biopsy is going to be on Wednesday morning. Patient states she still aches all over. Objective Data Objective Data Vital Signs: Vital Signs Temp Pulse Resp BP Pulse Ox 97.7 F L 60 16 162/88 H 96 08/09/21 09:15 08/09/21 09:30 08/09/21 09:15 08/09/21 09:15 08/09/21 09:15 Oxygen Delivery Method Room Air Weight: 68.7 kg Body Mass Index (BMI) 26.7 Intake & Output: Intake and Output for Last 24 Hours 08/07/21 08/08/21 08/09/21 23:59 23:59 23:59 Intake Total 50 / 50 3143.17 / 3343.17 194.83 / 1944.83 Output Total 500 / 500 Balance 50 / 50 2643.17 / 2843.17 194.83 / 1944.83 Lab / Micro Data Result Diagrams: 08/09/21 05:34 08/09/21 05:34 Labs: Laboratory Results - last 24 hr 08/07/21 22:20: Hepatitis A IgM Ab Negative, Hep Bs Antigen Positive H, Hep B Core IgM Ab Positive H, Hepatitis C Ab (EIA) <0.1 08/08/21 07:40: PT 17.0 H, INR 1.5, APTT 35.6 08/08/21 17:40: Urine Opiates Screen POSITIVE H, Urine Methadone Screen NEGATIVE, Ur Barbiturates Screen NEGATIVE, Ur Phencyclidine Scrn NEGATIVE, Ur Amphetamines Screen POSITIVE H, U Methamphetamin-MDMA NEGATIVE, U Benzodiazepines Scrn NEGATIVE, Urine Cocaine Screen NEGATIVE, U Cannabinoids Screen POSITIVE H, Ur Drug Screen Comment 08/08/21 20:10: ESR 9 08/08/21 20:10: PT 17.5 H, INR 1.5, APTT 35.8 08/08/21 20:10: Sodium 138, Potassium 4.1, Chloride 112 H, Carbon Dioxide 22.0, Anion Gap 4 L, BUN 7, Creatinine 1.19 H, Estim Creat Clear Calc 43.24, Est GFR (MDRD) Af Amer 61, Est GFR (MDRD) Non-Af 50 L, BUN/Creatinine Ratio 5.9 L, Glucose 108 H, Calcium 7.8 L, Total Bilirubin 12.90 H, AST 1764 H, ALT 1378 H, Alkaline Phosphatase 78, Lactate Dehydrogenase 379 H, C-React Prot Ext Range 14.30 H, Total Protein 5.4 L, Albumin 2.0 L, Globulin 3.4, Albumin/Globulin Ratio 0.6 L 08/08/21 20:10: Ammonia 31.0 08/08/21 20:10: Lactic Acid 1.8 08/09/21 05:34: Sodium 138, Potassium 4.0, Chloride 109 H, Carbon Dioxide 22.0, Anion Gap 7, BUN 6 L, Creatinine 1.10 H, Estim Creat Clear Calc 46.78, Est GFR (MDRD) Af Amer 67, Est GFR (MDRD) Non-Af 55 L, BUN/Creatinine Ratio 5.5 L, Glucose 97, Calcium 8.0 L, Total Bilirubin 12.70 H, AST 1660 H, ALT 1348 H, Alkaline Phosphatase 74, Total Protein 5.4 L, Albumin 1.9 L, Globulin 3.5, Albumin/Globulin Ratio 0.5 L 08/09/21 05:34: PT 16.6 H, INR 1.4 08/09/21 05:34: WBC 10.7, RBC 4.25, Hgb 12.0, Hct 34.9 L, MCV 82.1, MCH 28.2, MCHC 34.4, RDW Std Deviation 50.5 H, RDW Coeff of Jovani 17.1 H, Plt Count 272, MPV 12.6 H, Immature Gran % (Auto) 0.400, Neut % (Auto) 66.3, Lymph % (Auto) 15.8 L, [place] % (Auto) 13.2 H, Eos % (Auto) 3.7, Baso % (Auto) 0.6, Absolute Neuts (auto) 7.1, Absolute Lymphs (auto) 1.70, Nucleated RBC % 0 Micro: Microbiology 08/07/21 22:20 Urine, Clean Catch Urine Culture - Final Escherichia coli 08/07/21 22:20 Nasal Secretion SARS-CoV-2 Antigen (Rapid) - Final ABG Data ABG results: ABG 08/08/21 18:10 Specimen Type ART Sample Site R Radial pH 7.43 Bicarbonate Actual 17.1 L Total CO2 18 Base Excess -7 L O2 Saturation 99 ABG pCO2 25.9 L ABG pO2 135 H Rigoberto Test Positive O2 Delivery Device Room Air Physical Exam Const alert and oriented x3 Constitutional Narrative: Middle-aged white female who is markedly jaundice lying in right side-lying sleeping, awakens easily but not wanting to be all the interactive, appears ill but nontoxic Exam Limitations: no limitations Nutritional Appearance: overweight HEENT head/scalp atraumatic and moist oral mucous membranes HEENT Narrative: Dentition is poor, Mallampati is 2, no thrush, significant buccal jaundice Head and Scalp: normocephalic Eyes Eyes Narrative: Significant scleral icterus Resp normal respiratory effort, no retractions, no use of accessory muscles and clear to auscultation bilaterally Resp Narrative: Diffusely diminished but clear Auscultation: Negative for crackles, rales, rhonchi or wheezes Cardio regular rate, regular rhythm, S1 normal heart sound, S2 normal heart sound, no murmurs, no rub, no gallops and no JVD GI normal to inspection, nondistended, normoactive bowel sounds, soft to palpation, non-distended and hepatosplenomegaly Extremity full ROM and no clubbing, cyanosis or edema Peripheral Pulses: Yes pulses 2+ throughout Neuro oriented x3, moves all extremities and no focal motor deficits Sensorium / Orientation: awake and alert Speech: speech normal Assessment & Plan Assessment/Plan (1) Elevated ferritin level: (2) Hyperbilirubinemia: (3) Acute liver failure: (4) UTI (urinary tract infection): (5) Acute acalculous cholecystitis: (6) Normocytic anemia: (7) Methamphetamine use: PLAN: Acute liver failure suspected secondary to acute hepatitis B -Hepatitis A and C serology is negative however she has a positive hepatitis B surface antigen and a positive hepatitis B core IgM antibody which is suggestive of acute hepatitis B and other serology studies are pending -Should check for concomitant hepatitis D will discuss with GI -MRCP was suggestive of a calculus cholecystitis -Transaminases and bilirubin are relatively stable today -Liver biopsy ordered by GI--> scheduled for Wednesday however with hepatitis B serology may not be required -Await input from GI -CK is normal -Ferritin is elevated however I suspect this is an acute phase reactant related to acute hepatitis B infection -We will discontinue IV fluids -Ok per gastroenterology for a p.o. diet--> cardiac diet initiated -Tox screen is pending -Ammonia level is normal -Lactulose started by gastroenterology ?ANAND -Baseline renal function appears to fluctuate--> 1.0-1.4 -Slightly elevated on admission at 1.46 but improved to 1.10 -Discontinue IV fluids -Avoid nephrotoxins Acute acalculous cholecystitis -General surgery was consulted -No current plans for surgical intervention -Monitor clinically E. coli urinary tract infection -Continue ciprofloxacin -Patient has hives with penicillin and I avoided ceftriaxone given the fact that it is predominantly cleared by the liver and biliary system -Blood cultures pending Methamphetamine abuse -Last use was reportedly about 3 days ago -Toxicology screen is positive for both this and marijuana -Patient denies any other substances other than tobacco -? If related to acute liver failure with regards to ischemia History of stroke -January 2021 -Continue aspirin -Continue risk factor modifications -No marked residual deficits Hypertension -Restart home lisinopril -Continue metoprolol -Restart hydrochlorothiazide Hyperlipidemia -Hold statin with transaminitis -CK within normal limits Tobacco abuse -Continue patch -Recommend cessation DVT prophylaxis -Heparin subcu twice daily -SCDs CODE STATUS -We will have to verify as it does not appear 1 was obtained on admission
[2021-08-09] MEDS: hydroCHLOROthiazide 25 MG Tablet PO (16:15)
[2021-08-09] MEDS: Lisinopril 20 MG Tablet PO (16:17)
[2021-08-09 17:29] LABS: HIV - WCH Non-Reactive (Nonreactive)
--- NOTE | 2021-08-09 17:44 | CM.ED ---
ITALO Note Referral Source: MS3 SW Referral Reason: AOD resources SW went to patient's room at 12:10. Patient asleep and did not respond to her name being called. SW went to patient's room in the afternoon. Patient had her eyes closed and would not open her eyes but did minimally respond to this field underwriter's questions. Patient said that she is linked with [facility] and has a counselor but did not know the counselor's name. SW provided patient with [employer] resource information and [facility] pamphlet that included contact information. SW interview with patient was limited as patient closed her eyes and her response was minimal. Plan: ITALO provided resource list from [email or web address] and pamphlet from [facility] Esperanza AUSTIN
--- NOTE | 2021-08-09 20:05 | PN_ITS ---
Subjective Subjective Patient denies any pain as she has been sleeping on and off all day. She has has had 2 bowel movements today and has been getting lactulose therapy. Objective Data Objective Data Vital Signs: Vital Signs Temp Pulse Resp BP Pulse Ox 98.4 F 62 16 167/80 H 97 08/09/21 16:00 08/09/21 17:28 08/09/21 16:00 08/09/21 16:00 08/09/21 16:00 Oxygen Delivery Method Room Air Weight: 151 lb 7.321 oz Body Mass Index (BMI) 26.7 Intake & Output: Intake and Output for Last 24 Hours 08/07/21 08/08/21 08/09/21 23:59 23:59 23:59 Intake Total 50 / 50 3143.17 / 3343.17 2195.83 / 2195.83 Output Total 500 / 500 Balance 50 / 50 2643.17 / 2843.17 2195.83 / 2195.83 Lab / Micro Data Result Diagrams: 08/09/21 05:34 08/09/21 05:34 Labs: Laboratory Results - last 24 hr 08/07/21 22:20: Hepatitis A IgM Ab Negative, Hep Bs Antigen Positive H, Hep B Core IgM Ab Positive H, Hepatitis C Ab (EIA) <0.1 08/08/21 20:10: ESR 9 08/08/21 20:10: PT 17.5 H, INR 1.5, APTT 35.8 08/08/21 20:10: Sodium 138, Potassium 4.1, Chloride 112 H, Carbon Dioxide 22.0, Anion Gap 4 L, BUN 7, Creatinine 1.19 H, Estim Creat Clear Calc 43.24, Est GFR (MDRD) Af Amer 61, Est GFR (MDRD) Non-Af 50 L, BUN/Creatinine Ratio 5.9 L, Glucose 108 H, Calcium 7.8 L, Total Bilirubin 12.90 H, AST 1764 H, ALT 1378 H, Alkaline Phosphatase 78, Lactate Dehydrogenase 379 H, C-React Prot Ext Range 14.30 H, Total Protein 5.4 L, Albumin 2.0 L, Globulin 3.4, Albumin/Globulin Ratio 0.6 L 08/08/21 20:10: Ammonia 31.0 08/08/21 20:10: Lactic Acid 1.8 08/09/21 05:34: Sodium 138, Potassium 4.0, Chloride 109 H, Carbon Dioxide 22.0, Anion Gap 7, BUN 6 L, Creatinine 1.10 H, Estim Creat Clear Calc 46.78, Est GFR (MDRD) Af Amer 67, Est GFR (MDRD) Non-Af 55 L, BUN/Creatinine Ratio 5.5 L, Glucose 97, Calcium 8.0 L, Total Bilirubin 12.70 H, AST 1660 H, ALT 1348 H, Alkaline Phosphatase 74, Total Protein 5.4 L, Albumin 1.9 L, Globulin 3.5, Albumin/Globulin Ratio 0.5 L 08/09/21 05:34: PT 16.6 H, INR 1.4 08/09/21 05:34: WBC 10.7, RBC 4.25, Hgb 12.0, Hct 34.9 L, MCV 82.1, MCH 28.2, MCHC 34.4, RDW Std Deviation 50.5 H, RDW Coeff of Jovani 17.1 H, Plt Count 272, MPV 12.6 H, Immature Gran % (Auto) 0.400, Neut % (Auto) 66.3, Lymph % (Auto) 15.8 L, [place] % (Auto) 13.2 H, Eos % (Auto) 3.7, Baso % (Auto) 0.6, Absolute Neuts (auto) 7.1, Absolute Lymphs (auto) 1.70, Nucleated RBC % 0 08/09/21 16:00: HIV 1&2 Antibody Non-Reactive Micro: Microbiology 08/07/21 22:20 Urine, Clean Catch Urine Culture - Final Escherichia coli 08/07/21 22:20 Nasal Secretion SARS-CoV-2 Antigen (Rapid) - Final Physical Exam Const alert General Appearance: cooperative Orientation / Consciousness: oriented to person HEENT hearing grossly normal bilaterally Head and Scalp: normal to inspection Face and Sinus: face symmetric Nose: external nose normal Mouth: oral and palatal mucosa normal Eyes conjunctivae normal General Eye: normal appearance of both eyes Neck full ROM General: normal visual inspection Lymph Lymphatic: no lymphadenopathy noted Chest inspection of chest normal and palpation of chest normal Chest: symmetrical chest wall rise Resp normal respiratory effort Effort and Inspection: able to speak in complete sentences Cardio regular rate GI non-distended Percussion: normal to percussion Rectal Exam: deferred Neuro Speech: speech normal Gait (Neuro): normal gait Assessment & Plan Assessment/Plan (1) Acute liver failure: PLAN: Acute liver failure from unknown cause at this time. Her LDH, lactic acid and CRP are improving. These are good signs. Also her INR is improving which is the best sign. However her bilirubin has leveled off. She has been taking Mucomyst as scheduled to repeat her glutathione stores. I would like to start her on steroids however I will wait 1 more day. The top difficult diagnosis for me at this time is autoimmune hepatitis. Her copper level and ceruloplasmin along with haptoglobin are pending. Acute Sherif's would be lower in the differential diagnosis. Her ferritin is high enough for chronic liver failure secondary to hemochromatosis. I would need at the correspond with a low haptoglobin. However it is unlikely that acute liver failure is secondary to hemochromatosis. Also awaiting protein electrophoresis to see if this hepatomegaly is secondary to infiltrative disease such as myeloma, amyloidosis (primary or secondary )or sarcoidosis. Awaiting liver biopsy (2) Transaminitis: PLAN: Transaminitis improving slightly. (3) Hepatitis B: PLAN: She has a positive hepatitis B surface antigen which can be positive in acute hepatitis B however she is also core antigen is positive. The presence of anti-HBc indicates previous or ongoing infection with hepatitis B virus in an undefined time frame. IgM antibody to hepatitis B core antigen (IgM anti-HBc): Positivity indicates recent infection with hepatitis B virus (<6 mos). Its presence indicates acute infection but is less than 6 months. I would need to see if she has hepatitis B E antigen, hepatitis B E antibody, hepatitis B PCR DNA and hepatitis B surface antibody to have the complete picture to see if this is a reactivation or she never cleared her from her previous infection. I have requested tenofovir 300 mg once a day. Hopefully we will to start that by Wednesday. She will also need hepatitis D antibody series. It is good that her HIV antibodies 1 and 2 are negative. Charges/Coding Visit Charges Inpatient E&M: 82879 Subs Hosp L3
[2021-08-09] MEDS: 0.9% Saline Lock 10 ML Syringe IV (21:04)
--- NOTE | 2021-08-09 21:42 | NURSING ---
2109 This RN called lab to let them know that Dr. De La Cruz just put in some lab orders. Response from lab was Ok, I'll take a look.
[2021-08-10] VITALS (13 sets, daily range): BP systolic 130–162; BP diastolic 67–97; PULSE 58–76; RESP 16–20; TEMP 36.4–36.8; O2SAT 96–97
[2021-08-10] MEDS: 0.9% Saline Lock 10 ML Syringe IV ×5 (01:28→22:03)
[2021-08-10] MEDS: Ondansetron 4 MG/2 ML Vial IV ×2 (01:36→09:33)
[2021-08-10 05:37] LABS: Absolute Lymphocyte Count 1.85 X10^3/uL (0.83-4.51); Absolute Neutrophil Count 7.2 X10^3/uL (2.0-7.7); Basophil# 0.07 X10^3/uL; Basophil% 0.6 % (0-1); Eosinophil# 0.39 X10^3/uL; Eosinophils% 3.5 % (0-5); Hematocrit 35.4 % (37-47); Hemoglobin 12.5 g/dL (12.0-15.0); Lymphocyte # 1.85 X10^3/ul (0.83-4.51); Lymphocyte % 16.7 % (19-41); Mean Corp Hgb Conc 35.3 g/dL (32-36); Mean Corpuscular Hgb 28.6 pg (27.0-32.0); Mean Platelet Vol. 12.4 fl (6.2-12.0); Monocyte# 1.52 X10^3/uL; Monocyte% 13.7 % (0-10); NRBC Flagged by Analyzer 0 % (0-5); Neutrophil # 7.21 X10^3/uL (2.7-7.7); POSITIVE DIFFERENTIAL YES; Platelet Count 283 K/mm3 (150-450); RBC Distribution Width CV 16.9 % (11.6-14.6); Red Blood Count 4.37 M/mm3 (4.2-5.4); White Blood Count 11.1 K/mm3 (4.4-11.0)
[2021-08-10 05:47] LABS: Differential Indicated SCAN CRITERIA MET
[2021-08-10 06:10] LABS: ALB/GLOB Ratio 0.6 RATIO (0.9-2.4); AST(SGOT) 1778 U/L (15-37); Alanine Aminotransfer ALT/SGPT 1393 U/L (13-56); Alkaline Phosphatase 72 U/L (45-117); Anion Gap 6 (5-15); BUN 6 mg/dL (7-18); BUN/Creat Ratio 5.5 RATIO (10-20); Chloride 105 mmol/L (98-107); Creatinine, Serum 1.09 mg/dL (0.55-1.02); EST Glomerular Filtration Rate 56 mL/min (>60); Est Glom Filt Rate - Afr Amer 68 mL/min (>60); Estimated Creatinine Clearance 47.21 ml/min; Globulin 3.5 g/dL (2.2-4.2); Glucose 100 mg/dL (74-106); Potassium 3.5 mmol/L (3.5-5.1); Protein, Total 5.5 g/dL (6.4-8.2); Sodium Level 135 mmol/L (136-145)
[2021-08-10 06:26] LABS: Differential Comment SCANNED
[2021-08-10] MEDS: Metoprolol(XL)Succ 50 MG Tablet PO (09:28)
[2021-08-10] MEDS: hydroCHLOROthiazide 25 MG Tablet PO (09:28)
[2021-08-10] MEDS: Lisinopril 20 MG Tablet PO (09:28)
[2021-08-10] MEDS: Heparin Injection (Vial) 5,000 UNIT/ML VIAL 5000 UNIT SC ×2 (09:31→21:37)
[2021-08-10] MEDS: Ciprofloxacin 400 MG/200 ML BAG 200 MG IV (10:51)
--- NOTE | 2021-08-10 11:15 | PCM.PN.HOSP ---
Subjective Subjective Patient states she still having significant myalgias and hurts all over. Appetite is so-so. Denies any significant abdominal pain. We did discuss the fact that she has acute hepatitis B and modes of transmission. She denies any personal history of IV drug use but indicates her boyfriend with whom she is sexually active is an IV drug user. We did recommend that he gets tested as well. Objective Data Objective Data Vital Signs: Vital Signs Temp Pulse Resp BP Pulse Ox 98.0 F 66 20 H 145/83 H 96 08/10/21 05:43 08/10/21 09:28 08/10/21 05:43 08/10/21 05:43 08/10/21 05:43 Oxygen Delivery Method Room Air Weight: 66.1 kg Body Mass Index (BMI) 26.7 Intake & Output: Intake and Output for Last 24 Hours 08/08/21 08/09/21 08/10/21 23:59 23:59 23:59 Intake Total 3143.17 / 3343.17 3305.83 / 3305.83 110 / 110 Output Total 500 / 500 Balance 2643.17 / 2843.17 3305.83 / 3305.83 110 / 110 Lab / Micro Data Result Diagrams: 08/10/21 05:24 08/10/21 05:24 Labs: Laboratory Results - last 24 hr 08/09/21 16:00: HIV 1&2 Antibody Non-Reactive 08/10/21 05:24: WBC 11.1 H, RBC 4.37, Hgb 12.5, Hct 35.4 L, MCV 81.0, MCH 28.6, MCHC 35.3, RDW Std Deviation 49.0 H, RDW Coeff of Jovani 16.9 H, Plt Count 283, MPV 12.4 H, Immature Gran % (Auto) 0.500, Neut % (Auto) 65.0, Lymph % (Auto) 16.7 L, [place] % (Auto) 13.7 H, Eos % (Auto) 3.5, Baso % (Auto) 0.6, Absolute Neuts (auto) 7.2, Absolute Lymphs (auto) 1.85, Nucleated RBC % 0, Differential Comment SCANNED, Diff Path Review October08/10/21 05:24: Sodium 135 L, Potassium 3.5, Chloride 105, Carbon Dioxide 24.0, Anion Gap 6, BUN 6 L, Creatinine 1.09 H, Estim Creat Clear Calc 47.21, Est GFR (MDRD) Af Amer 68, Est GFR (MDRD) Non-Af 56 L, BUN/Creatinine Ratio 5.5 L, Glucose 100, Calcium 8.0 L, Total Bilirubin 13.40 H, AST 1778 H, ALT 1393 H, Alkaline Phosphatase 72, Total Protein 5.5 L, Albumin 2.0 L, Globulin 3.5, Albumin/Globulin Ratio 0.6 L Micro: Microbiology 08/08/21 12:53 Blood Culture (Wb) - Arm Left Blood Culture - Preliminary No growth in 48 hours. 08/07/21 22:20 Urine, Clean Catch Urine Culture - Final Escherichia coli 08/07/21 22:20 Nasal Secretion SARS-CoV-2 Antigen (Rapid) - Final Physical Exam Const alert and oriented x3 Constitutional Narrative: Middle-aged white female who is markedly jaundice lying in left side-lying sleeping but awakens easily more interactive today, appears as if she is not feeling well but nontoxic at this time Exam Limitations: no limitations Nutritional Appearance: overweight HEENT head/scalp atraumatic and moist oral mucous membranes Head and Scalp: normocephalic Eyes Eyes Narrative: Significant scleral icterus Resp normal respiratory effort, no retractions, no use of accessory muscles and clear to auscultation bilaterally Resp Narrative: Diffusely diminished but clear Auscultation: Negative for crackles, rales, rhonchi or wheezes Cardio regular rate, regular rhythm, S1 normal heart sound, S2 normal heart sound, no murmurs, no rub, no gallops and no JVD GI normal to inspection, nondistended, normoactive bowel sounds, soft to palpation, non-distended and hepatosplenomegaly Extremity no clubbing, cyanosis or edema Peripheral Pulses: Yes pulses 2+ throughout Skin Skin Narrative: Markedly jaundiced Neuro oriented x3, moves all extremities and no focal motor deficits Sensorium / Orientation: awake and alert Speech: speech normal Motor Exam: strength 5/5 throughout Assessment & Plan Assessment/Plan (1) Elevated ferritin level: (2) Hyperbilirubinemia: (3) Acute liver failure: (4) UTI (urinary tract infection): (5) Acute acalculous cholecystitis: (6) Normocytic anemia: (7) Methamphetamine use: PLAN: Acute liver failure suspected secondary to acute hepatitis B -Hepatitis A and C serology is negative however she has a positive hepatitis B surface antigen and a positive hepatitis B core IgM antibody which is suggestive of acute hepatitis B and other serology studies are pending -Concomitant studies for hepatitis C have been ordered as well as viral load for hepatitis B -HIV negative -Tenofovir has been ordered and will be initiated tomorrow and the pharmacy can obtain doses -ID has been consulted -Patient does admit that her boyfriend is an IV drug user and I suspect sexual activity with a positive carrier is the mode of transmission -MRCP was suggestive of a calculus cholecystitis -Transaminases and bilirubin are relatively stable today -Liver biopsy tomorrow -CK is normal -Ferritin is elevated however I suspect this is an acute phase reactant related to acute hepatitis B infection -Ok per gastroenterology for a p.o. diet--> cardiac diet initiated -Tox screen positive -Discontinue lactulose as patient is having severe diarrhea with this CKD stage 2 -Slightly elevated on admission at 1.46 but improved to 1.09 -Appears that patient has CKD stage II and that her baseline renal function is approximately 1-1.2 -Avoid nephrotoxins -ANAND has resolved Acute acalculous cholecystitis -General surgery was consulted -No current plans for surgical intervention -Monitor clinically -Doubt this is clinically related anything going on currently E. coli urinary tract infection -discontinue after tomorrow morning's dose -Blood cultures negative Methamphetamine abuse -Last use was reportedly about 3 days ago -Toxicology screen is positive for both this and marijuana -Patient denies any other substances other than tobacco -Patient denies any IVDU History of stroke -January 2021 -Continue aspirin -Continue risk factor modifications -No marked residual deficits Hypertension -Continue home lisinopril -Continue metoprolol -Continue home hydrochlorothiazide Hyperlipidemia -Hold statin with transaminitis -CK within normal limits Tobacco abuse -Continue patch -Recommend cessation DVT prophylaxis -Heparin subcu twice daily -SCDs Charges/Coding Visit Charges Inpatient E&M: 82396 Subs Hosp L2
[2021-08-10] MEDS: Acetylcysteine (Mucomyst Oral) 20% SOLN 4640 MG PO ×3 (12:23→21:36)
[2021-08-10 13:16] LABS: Magnesium 1.8 mg/dL (1.6-2.6); Phosphorus 2.3 mg/dL (2.5-4.9)
[2021-08-11] VITALS (19 sets, daily range): BP systolic 125–158; BP diastolic 62–91; PULSE 52–75; RESP 14–31; TEMP 36.2–36.9; O2SAT 95–98; BMI 26.4
[2021-08-11] MEDS: Acetylcysteine (Mucomyst Oral) 20% SOLN 4640 MG PO (01:15)
[2021-08-11] MEDS: 0.9% Saline Lock 10 ML Syringe IV ×2 (01:16→21:29)
[2021-08-11 06:56] LABS: Absolute Lymphocyte Count 2.19 X10^3/uL (0.83-4.51); Absolute Neutrophil Count 7.4 X10^3/uL (2.0-7.7); Basophil# 0.07 X10^3/uL; Basophil% 0.6 % (0-1); Eosinophil# 0.57 X10^3/uL; Eosinophils% 4.8 % (0-5); Hematocrit 35.6 % (37-47); Hemoglobin 12.7 g/dL (12.0-15.0); Lymphocyte # 2.19 X10^3/ul (0.83-4.51); Lymphocyte % 18.5 % (19-41); Mean Corp Hgb Conc 35.7 g/dL (32-36); Mean Corpuscular Hgb 28.3 pg (27.0-32.0); Mean Corpuscular Volume 79.5 fL (81-99); Mean Platelet Vol. 12.3 fl (6.2-12.0); Monocyte# 1.53 X10^3/uL; Monocyte% 12.9 % (0-10); NRBC Flagged by Analyzer 0 % (0-5); Neutrophil # 7.39 X10^3/uL (2.7-7.7); Neutrophil % 62.4 % (47-70); POSITIVE DIFFERENTIAL YES; Platelet Count 306 K/mm3 (150-450); RBC Distribution Width CV 17.2 % (11.6-14.6); RBC Distribution Width SD 48.4 fl (35.1-43.9); Red Blood Count 4.48 M/mm3 (4.2-5.4); White Blood Count 11.8 K/mm3 (4.4-11.0)
[2021-08-11 07:04] LABS: Differential Indicated SCAN CRITERIA MET
[2021-08-11 07:18] LABS: International Normalized Ratio 1.2
--- NOTE | 2021-08-11 07:21 | PN.HOSP_ITS ---
Objective Data Objective Data Vital Signs: Vital Signs Temp Pulse Resp BP Pulse Ox 97.8 F 54 L 18 150/66 H 97 08/11/21 05:39 08/11/21 05:48 08/11/21 05:39 08/11/21 05:39 08/11/21 05:39 Oxygen Delivery Method Room Air Weight: 65.7 kg Body Mass Index (BMI) 26.7 Intake & Output: Intake and Output for Last 24 Hours 08/09/21 08/10/21 08/11/21 23:59 23:59 23:59 Intake Total 3305.83 / 3305.83 780 / 780 Balance 3305.83 / 3305.83 780 / 780 Lab / Micro Data Result Diagrams: 08/11/21 06:05 08/10/21 05:24 Labs: Laboratory Results - last 24 hr 08/10/21 05:24: Phosphorus 2.3 L, Magnesium 1.8 08/11/21 06:05: WBC 11.8 H, RBC 4.48, Hgb 12.7, Hct 35.6 L, MCV 79.5 L, MCH 28.3, MCHC 35.7, RDW Std Deviation 48.4 H, RDW Coeff of Jovani 17.2 H, Plt Count 306, MPV 12.3 H, Immature Gran % (Auto) 0.800, Neut % (Auto) 62.4, Lymph % (Auto ) 18.5 L, [place] % (Auto) 12.9 H, Eos % (Auto) 4.8, Baso % (Auto) 0.6, Absolute Neuts (auto) 7.4, Absolute Lymphs (auto) 2.19, Nucleated RBC % 0 08/11/21 06:05: PT 15.0 H, INR 1.2 Micro: Microbiology 08/08/21 12:53 Blood Culture (Wb) - Arm Left Blood Culture - Preliminary No growth in 48 hours. 08/07/21 22:20 Urine, Clean Catch Urine Culture - Final Escherichia coli 08/07/21 22:20 Nasal Secretion SARS-CoV-2 Antigen (Rapid) - Final Assessment & Plan Assessment/Plan (1) Elevated ferritin level: (2) Hyperbilirubinemia: (3) Acute liver failure: (4) UTI (urinary tract infection): (5) Acute acalculous cholecystitis: (6) Normocytic anemia: (7) Methamphetamine use: PLAN: Acute liver failure suspected secondary to acute hepatitis B -Hepatitis A and C serology is negative however she has a positive hepatitis B surface antigen and a positive hepatitis B core IgM antibody which is suggestive of acute hepatitis B and other serology studies are pending -Concomitant studies for hepatitis C have been ordered as well as viral load for hepatitis B -HIV negative -Tenofovir has been ordered and will be initiated tomorrow and the pharmacy can obtain doses -ID has been consulted -Patient does admit that her boyfriend is an IV drug user and I suspect sexual activity with a positive carrier is the mode of transmission -MRCP was suggestive of a calculus cholecystitis -Transaminases and bilirubin are relatively stable today -Liver biopsy tomorrow -CK is normal -Ferritin is elevated however I suspect this is an acute phase reactant related to acute hepatitis B infection -Ok per gastroenterology for a p.o. diet--> cardiac diet initiated -Tox screen positive -Discontinue lactulose as patient is having severe diarrhea with this CKD stage 2 -Slightly elevated on admission at 1.46 but improved to 1.09 -Appears that patient has CKD stage II and that her baseline renal function is approximately 1-1.2 -Avoid nephrotoxins -ANAND has resolved Acute acalculous cholecystitis -General surgery was consulted -No current plans for surgical intervention -Monitor clinically -Doubt this is clinically related anything going on currently E. coli urinary tract infection -discontinue after tomorrow morning's dose -Blood cultures negative Methamphetamine abuse -Last use was reportedly about 3 days ago -Toxicology screen is positive for both this and marijuana -Patient denies any other substances other than tobacco -Patient denies any IVDU History of stroke -January 2021 -Continue aspirin -Continue risk factor modifications -No marked residual deficits Hypertension -Continue home lisinopril -Continue metoprolol -Continue home hydrochlorothiazide Hyperlipidemia -Hold statin with transaminitis -CK within normal limits Tobacco abuse -Continue patch -Recommend cessation DVT prophylaxis -Heparin subcu twice daily -SCDs
[2021-08-11 07:22] LABS: Anisocytosis 1+
[2021-08-11 07:34] LABS: ALB/GLOB Ratio 0.5 RATIO (0.9-2.4); AST(SGOT) 1241 U/L (15-37); Alanine Aminotransfer ALT/SGPT 1228 U/L (13-56); Alkaline Phosphatase 68 U/L (45-117); Anion Gap 9 (5-15); BUN 8 mg/dL (7-18); BUN/Creat Ratio 7.6 RATIO (10-20); Calcium,Total 8.7 mg/dL (8.5-10.1); Chloride 103 mmol/L (98-107); Creatinine, Serum 1.05 mg/dL (0.55-1.02); EST Glomerular Filtration Rate 58 mL/min (>60); Est Glom Filt Rate - Afr Amer 70 mL/min (>60); Estimated Creatinine Clearance 49.01 ml/min; Glucose 89 mg/dL (74-106); Potassium 3.5 mmol/L (3.5-5.1); Sodium Level 137 mmol/L (136-145)
[2021-08-11 09:38] LABS: Hepatitis B Surface Antibody Non-Reactive
--- NOTE | 2021-08-11 10:43 | PN.HOSP_ITS ---
Subjective Subjective Patient is a 51-year-old lady who presented with progressive generalized weakness and jaundice. Work-up did reveal acute liver failure secondary to acute hepatitis. Objective Data Objective Data Vital Signs: Vital Signs Temp Pulse Resp BP Pulse Ox 98.0 F 63 16 138/78 H 95 08/11/21 09:08 08/11/21 10:40 08/11/21 09:08 08/11/21 09:08 08/11/21 09:08 Oxygen Delivery Method Room Air Weight: 65.7 kg Body Mass Index (BMI) 26.7 Intake & Output: Intake and Output for Last 24 Hours 08/09/21 08/10/21 08/11/21 23:59 23:59 23:59 Intake Total 3305.83 / 3305.83 780 / 780 Balance 3305.83 / 3305.83 780 / 780 Lab / Micro Data Result Diagrams: 08/11/21 06:05 08/11/21 06:05 Labs: Laboratory Results - last 24 hr 08/10/21 05:24: Hep Bs Antibody Non-Reactive 08/10/21 05:24: Phosphorus 2.3 L, Magnesium 1.8 08/11/21 06:05: WBC 11.8 H, RBC 4.48, Hgb 12.7, Hct 35.6 L, MCV 79.5 L, MCH 28.3, MCHC 35.7, RDW Std Deviation 48.4 H, RDW Coeff of Jovani 17.2 H, Plt Count 306, MPV 12.3 H, Immature Gran % (Auto) 0.800, Neut % (Auto) 62.4, Lymph % (Auto) 18.5 L, Calloway % (Auto) 12.9 H, Eos % (Auto) 4.8, Baso % (Auto) 0.6, Absolute Neuts (auto) 7.4, Absolute Lymphs (auto) 2.19, Nucleated RBC % 0, Diff Path Review May foll, Anisocytosis 1+ 08/11/21 06:05: Sodium 137, Potassium 3.5, Chloride 103, Carbon Dioxide 25.0, Anion Gap 9, BUN 8, Creatinine 1.05 H, Estim Creat Clear Calc 49.01, Est GFR (MDRD) Af Amer 70, Est GFR (MDRD) Non-Af 58 L, BUN/Creatinine Ratio 7.6 L, Glucose 89, Calcium 8.7, Total Bilirubin 12.40 H, AST 1241 H, ALT 1228 H, Alkaline Phosphatase 68, Total Protein 6.0 L, Albumin 2.0 L, Globulin 4.0, Albumin/Globulin Ratio 0.5 L 08/11/21 06:05: PT 15.0 H, INR 1.2 Micro: Microbiology 08/08/21 12:53 Blood Culture (Wb) - Arm Left Blood Culture - Preliminary No growth in 48 hours. 08/07/21 22:20 Urine, Clean Catch Urine Culture - Final Escherichia coli 08/07/21 22:20 Nasal Secretion SARS-CoV-2 Antigen (Rapid) - Final Physical Exam Narrative GENERAL: cooperative HEENT: Atraumatic; EYES; Icteric, Normal Conjunctiva NECK; supple, normal thyroid, RESPIRATORY: Diminished to auscultation CARDIOVASCULAR: Regular S1 S2, GI: soft, normoactive bowel sounds, : No Renal angle tenderness; EXTREMITIES: No edema, no clubbing, MUSCULOSKELETAL: no muscle wasting NEURO: Awake; no lateralizing signs. SKIN: No Rash PSYCH; Flat affect Assessment & Plan Assessment/Plan (1) Elevated ferritin level: (2) Hyperbilirubinemia: (3) Acute liver failure: (4) UTI (urinary tract infection): (5) Acute acalculous cholecystitis: (6) Normocytic anemia: (7) Methamphetamine use: PLAN: Patient is a 51-year-old lady who presented with progressive generalized weakness and jaundice. Work-up did reveal acute liver failure secondary to acute hepatitis. 1. Acute liver failure ?Secondary to acute hepatitis B. Patient was found to be positive for hepatitis B surface antigen as well as hepatitis B core IgM. Hepatitis a and C serology came back negative. HIV came back negative. Patient was seen in consultation by GI tenofovir has been ordered 2. Acute acalculous cholecystitis ?General surgery consulted no surgical intervention planned for this time 3. Acute cystitis with E. coli ?Patient managed with ciprofloxacin based on culture result 4. Polysubstance abuse ?Including methamphetamine as well as marijuana use, patient counseled on cessation 5. Hypertension - Blood pressure controlled, home medications continued with dose adjustment as needed 6. Dyslipidemia ?Patient statin therapy held in view of her impaired kidney function 7. Tobacco dependence - Counseled on cessation, offered nicotine patch for tobacco cravings 8. DVT prophylaxis ?Subcu heparin Charges/Coding Visit Charges Inpatient E&M: 40697 Subs Hosp L2
--- NOTE | 2021-08-11 11:30 | CT_ITS ---
PROCEDURE: CT DIRECTED CORE LIVER BIOPSY INDICATION: Female, 51 years old. Hepatitis. PHYSICIAN: Dr. MATEO Velasquez CONSENT: Written informed consent was obtained having explained the risks, benefits and alternatives in detail with the patient who accepted the risks and agreed to proceed. Laboratory review and clinical assessment was performed. CONSCIOUS SEDATION PROTOCOL: The Drugs used were: 2 mg Versed, IV., and 50 mcg Fentanyl, IV. The sedation time was: 20 minutes. Conscious sedation was started at 12:48 PM and terminated at 1:08 PM. The conscious sedation protocol was independently monitored. RADIATION DOSAGE (If Supplied By Facility): CTDIvol = ( 15 ) mGy, DLP = ( 310.1 ) mGycm Individualized dose optimization techniques were used for this CT. TECHNIQUE: Using CT image guidance with image documentation, a suitable location in the left lobe of the liver was identified. Using an anterior approach, puncture of the liver was uneventful with an 18-gauge core needle system. 3, 18-gauge core samples were obtained, and submitted in formalin to the pathologist for further assessment. Followup CT scan revealed no distinct sequelae. CT/Biopsy/Inj or Needle Placement IMPRESSION: 1. CT directed core needle biopsy of the liver, using CT image guidance with image documentation as described. 2. Conscious Sedation protocol utilized with independent monitoring. Electronically Signed: Torin Minaya MD at 13:33 EST ,
--- NOTE | 2021-08-11 12:00 | NURSING ---
pt to radiology via bed
[2021-08-11] MEDS: Midazolam 2 MG/2 ML Syringe IV (12:48)
[2021-08-11] MEDS: fentaNYL 100 MCG/2 ML Ampul IV (12:48)
[2021-08-11] MEDS: Lidocaine 2% (20 ml mdv) 20 ML Vial INFILT (12:58)
--- NOTE | 2021-08-11 13:05 | LIVB_PTH ---
PATIENT: ZEKE RAY LOC: [facility] U#:[id number] AGE/SX: 51/F ROOM: [facility]317 RE08/08/[address]: Dr. Dominic Pa MD : 1970 BED: 1 DIS: 08/13/2021 SPEC #: [id number] RECD: 08/11/21 13:17 STATUS: WILDER REVasquez #: [id number] JULIANN: 08/11/21 13:[address]: Dominic Pa DEPT: SURGICAL PATHOLOGY RECD BY: Nicole Lara ENTERED: 08/12/21 10:49 SP TYPE: LIVER BX OTHR DR: MD Dr. Chase Cramer MD No Primary Care Phys Tissues: Liver, NOS Procedures: PAS with Diastase (control) Trichrome (control) Special Stain Group II PAS Stain (control) Surgery Specimen Level V Retic (control) Iron Stain (control) HEADER OPERATION: CT-guided liver biopsy PRE-OP DIAGNOSIS: Hepatitis TISSUE SUBMITTED: Liver 18-gauge x3 MICROSCOPIC DIAGNOSIS Liver, CT-guided core biopsy: Acute fulminant hepatitis. Impending cirrhosis. See comment. AM:veda 08/12/2021 COMMENT Sections show fulminant acute hepatitis with predominance in portal areas and extending into liver parenchyma. Trichrome stain shows broad band fibrosis and focal bridging fibrosis with prominent ?chicken-wire? fibrosis. Reticulin stain reveals disrupted hepatic parenchymal architecture. Iron stain does not reveal intraparenchymal deposition of iron and is consistent with bile stasis. PAS with and without diastase does not reveal accumulation of abnormal proteins. All matched controls are appropriate. The patient?s history of hepatitis B and polysubstance drug abuse is noted. Case has been reviewed in consultation with Dr. Nguyen who concurs with the above diagnosis. IDC:[email or web address] MICROSCOPIC DESCRIPTION Slides are reviewed. GROSS DESCRIPTION Received is one container labeled with the patient's name and not further designated. The specimen consists of three elongated fragments of light jarrett soft tissue each measuring 1.4 cm in length and 0.1 cm in diameter. The specimen is totally submitted in one cassette. / ASHLYN:veda 08/11/2021 TC:2 CPT: 10212, 49616 x5
[2021-08-11 13:40] LABS: CMV Acute Antibody IgM < 30.0 AU/mL (0.0-29.9)
[2021-08-11 14:08] LABS: Anti-Centromere B Ab <0.2 AI (0.0-0.9); Anti-Chromatin <0.2 AI (0.0-0.9); Anti-Jo <0.2 AI (0.0-0.9); Anti-Scleroderma-70 AB <0.2 AI (0.0-0.9); RNP Ab 4.9 AI (0.0-0.9); SJOGREN'S Anti-SS-A test < 0.2 AI (0.0-0.9); SJOGREN'S Anti-SS-B test < 0.2 AI (0.0-0.9); Smith Ab <0.2 AI (0.0-0.9)
[2021-08-11 14:15] LABS: Pathologist Review Reviewed
[2021-08-11 14:20] LABS: Pathologist Review Reviewed
[2021-08-11 14:35] LABS: Anti-dsDNA Ab <1 IU/mL (0-9)
[2021-08-11] MEDS: Metoprolol(XL)Succ 50 MG Tablet PO (15:24)
[2021-08-11] MEDS: Lisinopril 20 MG Tablet PO (15:24)
[2021-08-11] MEDS: hydroCHLOROthiazide 25 MG Tablet PO (15:24)
--- NOTE | 2021-08-11 18:36 | PN_ITS ---
Subjective Subjective Is still very weak and lethargic. Her fatigue is improved. Her diarrhea has improved after stopping the lactulose Objective Data Objective Data Vital Signs: Vital Signs Temp Pulse Resp BP Pulse Ox 97.8 F 75 16 158/91 H 95 08/11/21 15:09 08/11/21 15:24 08/11/21 15:09 08/11/21 15:09 08/11/21 15:09 Oxygen Flow Rate (L/min) [5] 2 Oxygen Flow Rate (L/min) [4] 2 Oxygen Flow Rate (L/min) [3] 2 Oxygen Flow Rate (L/min) [2] 2 Oxygen Delivery Method [5] Nasal Cannula Oxygen Delivery Method [4] Nasal Cannula Oxygen Delivery Method [3] Nasal Cannula Oxygen Delivery Method [2] Nasal Cannula Oxygen Delivery Method [1 ( Room Air Initial Baseline)] Oxygen Delivery Method Room Air Weight: 144 lb 13.499 oz Body Mass Index (BMI) 26.4 Intake & Output: Intake and Output for Last 24 Hours 08/09/21 08/10/21 08/11/21 23:59 23:59 23:59 Intake Total 3305.83 / 3305.83 780 / 780 50 / 50 Balance 3305.83 / 3305.83 780 / 780 50 / 50 Lab / Micro Data Result Diagrams: 08/11/21 06:05 08/11/21 06:05 Labs: Laboratory Results - last 24 hr 08/08/21 20:10: CMV IgM Ab < 30.0 08/08/21 20:10: JAME-1 Antibody <0.2, SS-A/Ro IgG Antibody < 0.2, SS-B/La IgG Antibody < 0.2, Sm (Chiang) Antibody <0.2, FACULTY I ON CALL MEDICAL ASSISTANT Antibody 4.9 H, Scl-70 Scleroderma Ab <0.2, Double Strand DNA Ab <1, Centromere B Antibody <0.2 08/10/21 05:24: Diff Path Review Reviewed 08/10/21 05:24: Hep Bs Antibody Non-Reactive 08/11/21 06:05: WBC 11.8 H, RBC 4.48, Hgb 12.7, Hct 35.6 L, MCV 79.5 L, MCH 28.3, MCHC 35.7, RDW Std Deviation 48.4 H, RDW Coeff of Jovani 17.2 H, Plt Count 306, MPV 12.3 H, Immature Gran % (Auto) 0.800, Neut % (Auto) 62.4, Lymph % (Auto) 18.5 L, Cuming % (Auto) 12.9 H, Eos % (Auto) 4.8, Baso % (Auto) 0.6, Absolute Neuts (auto) 7.4, Absolute Lymphs (auto) 2.19, Nucleated RBC % 0, Diff Path Review Reviewed, Anisocytosis 1+ 08/11/21 06:05: Sodium 137, Potassium 3.5, Chloride 103, Carbon Dioxide 25.0, Anion Gap 9, BUN 8, Creatinine 1.05 H, Estim Creat Clear Calc 49.01, Est GFR (MDRD) Af Amer 70, Est GFR (MDRD) Non-Af 58 L, BUN/Creatinine Ratio 7.6 L, Glucose 89, Calcium 8.7, Total Bilirubin 12.40 H, AST 1241 H, ALT 1228 H, Alkaline Phosphatase 68, Total Protein 6.0 L, Albumin 2.0 L, Globulin 4.0, Albumin/Globulin Ratio 0.5 L 08/11/21 06:05: PT 15.0 H, INR 1.2 Micro: Microbiology 08/08/21 12:53 Blood Culture (Wb) - Arm Left Blood Culture - Preliminary No growth in 48 hours. 08/07/21 22:20 Urine, Clean Catch Urine Culture - Final Escherichia coli 08/07/21 22:20 Nasal Secretion SARS-CoV-2 Antigen (Rapid) - Final Radiography Diagnostic Testing: Radiology Impression Biopsy CT 08/11/21 11:30 IMPRESSION: 1. CT directed core needle biopsy of the liver, using CT image guidance with image documentation as described. 2. Conscious Sedation protocol utilized with independent monitoring. Electronically Signed: Torin Minaya MD at 13:33 EST , Physical Exam Const alert General Appearance: cooperative Orientation / Consciousness: oriented to person HEENT hearing grossly normal bilaterally Head and Scalp: normal to inspection Face and Sinus: face symmetric Nose: external nose normal Mouth: oral and palatal mucosa normal Eyes conjunctivae normal General Eye: normal appearance of both eyes Neck full ROM General: normal visual inspection Lymph Lymphatic: no lymphadenopathy noted Chest inspection of chest normal and palpation of chest normal Chest: symmetrical chest wall rise Resp normal respiratory effort Effort and Inspection: able to speak in complete sentences Cardio regular rate GI non-distended Percussion: normal to percussion Rectal Exam: deferred Neuro Speech: speech normal Gait (Neuro): normal gait Assessment & Plan Assessment/Plan (1) Hepatitis B: PLAN: Patient will need to be started on tenofovir therapy for her acute hepatitis B. I am waiting PCR DNA quant, hepatitis C antigen and hepatitis B surface antigen (2) Acute liver failure: PLAN: Acute liver failure possibly multifactorial secondary to hepatitis b. Awaiting results of liver biopsy to see if we can start steroid therapy. Charges/Coding Visit Charges Inpatient E&M: 81551 Subs Hosp L2
[2021-08-11 20:29] LABS: EBV Acute VCA IgM < 36.0 U/mL (0.0-35.9)
[2021-08-11 20:30] LABS: Cytoplasmic Ab (C-ANCA) <1:20 titer (Neg:<1:20); EBV Nuclear Antigen IgG > 600.0 U/mL (0.0-17.9); Perinuclear Ab (P-ANCA) <1:20 titer (Neg:<1:20)
[2021-08-11] MEDS: Ciprofloxacin 400 MG/200 ML BAG 200 MG IV (22:40)
[2021-08-12] VITALS (13 sets, daily range): BP systolic 138–147; BP diastolic 75–95; PULSE 54–64; RESP 16–18; TEMP 36.5–36.8; O2SAT 92–99
--- NOTE | 2021-08-12 00:19 | NURSING ---
08/11/212129 Patient refusing to take Mucomyst tonight. I just got some bad news about my daughter. I don't want to be bothered tonight. This RN reminded patient that she needs to take care of herself too. I can't worry about myself right now. I hope I get to go home tomorrow. Patient went on to say her daughter is in a [place] hospital with sepsis. Patient is very worried about her daughter.
[2021-08-12 05:43] LABS: Absolute Lymphocyte Count 1.98 X10^3/uL (0.83-4.51); Absolute Neutrophil Count 6.6 X10^3/uL (2.0-7.7); Basophil# 0.07 X10^3/uL; Basophil% 0.7 % (0-1); Eosinophil# 0.53 X10^3/uL; Hematocrit 35.3 % (37-47); Hemoglobin 12.1 g/dL (12.0-15.0); Lymphocyte # 1.98 X10^3/ul (0.83-4.51); Lymphocyte % 18.9 % (19-41); Mean Corp Hgb Conc 34.3 g/dL (32-36); Mean Corpuscular Hgb 27.4 pg (27.0-32.0); Mean Corpuscular Volume 79.9 fL (81-99); Mean Platelet Vol. 12.3 fl (6.2-12.0); Monocyte# 1.25 X10^3/uL; Monocyte% 11.9 % (0-10); NRBC Flagged by Analyzer 0 % (0-5); Neutrophil # 6.62 X10^3/uL (2.7-7.7); Platelet Count 310 K/mm3 (150-450); RBC Distribution Width CV 17.4 % (11.6-14.6); RBC Distribution Width SD 49.5 fl (35.1-43.9); Red Blood Count 4.42 M/mm3 (4.2-5.4); White Blood Count 10.5 K/mm3 (4.4-11.0)
[2021-08-12 06:10] LABS: AST(SGOT) 609 U/L (15-37); Alanine Aminotransfer ALT/SGPT 900 U/L (13-56); Albumin, Serum 2.2 g/dL (3.2-5.0); Alkaline Phosphatase 70 U/L (45-117); Globulin 3.9 g/dL (2.2-4.2); Protein, Total 6.1 g/dL (6.4-8.2)
--- NOTE | 2021-08-12 07:32 | PN.HOSP_ITS ---
Subjective Subjective Patient seen admit to improvement in her overall condition. She underwent liver biopsy the day prior. Her LFTs are trending down. Case discussed with Dr. De La Cruz with GI plan is to await results of liver biopsy to determine the course of treatment prior to discharge Objective Data Objective Data Vital Signs: Vital Signs Temp Pulse Resp BP Pulse Ox 98.2 F 54 L 18 147/83 H 92 08/12/21 01:51 08/12/21 05:29 08/12/21 01:51 08/12/21 01:51 08/12/21 01:58 Oxygen Flow Rate (L/min) [5] 2 Oxygen Flow Rate (L/min) [4] 2 Oxygen Flow Rate (L/min) [3] 2 Oxygen Flow Rate (L/min) [2] 2 Oxygen Delivery Method [5] Nasal Cannula Oxygen Delivery Method [4] Nasal Cannula Oxygen Delivery Method [3] Nasal Cannula Oxygen Delivery Method [2] Nasal Cannula Oxygen Delivery Method [1 ( Room Air Initial Baseline)] Oxygen Delivery Method Airvo Weight: 65.3 kg Body Mass Index (BMI) 26.4 Intake & Output: Intake and Output for Last 24 Hours 08/10/21 08/11/21 08/12/21 23:59 23:59 23:59 Intake Total 780 / 780 270 / 470 200 / 200 Balance 780 / 780 270 / 470 200 / 200 Lab / Micro Data Result Diagrams: 08/12/21 04:44 08/11/21 06:05 Labs: Laboratory Results - last 24 hr 08/08/21 20:10: c-ANCA Antibody <1:20, Atypical p-ANCA <1:20, p-ANCA Antibody <1:20, EBV Capsid Ag IgG Ab 387.0 H, EBV Capsid Ag IgM Ab < 36.0, EBV Nuclear Ag IgG Ab > 600.0 H, EBV Antibody Interp Comment 08/08/21 20:10: CMV IgM Ab < 30.0 08/08/21 20:10: JAME-1 Antibody <0.2, SS-A/Ro IgG Antibody < 0.2, SS-B/La IgG Anti body < 0.2, Sm (Chiang) Antibody <0.2, VERTICAL CONTOUR BAND SAW OPERATOR Antibody 4.9 H, Scl-70 Scleroderma Ab <0.2, Double Strand DNA Ab <1, Centromere B Antibody <0.2 08/10/21 05:24: Diff Path Review Reviewed 08/10/21 05:24: Hep Bs Antibody Non-Reactive 08/11/21 06:05: Diff Path Review Reviewed 08/11/21 06:05: Sodium 137, Potassium 3.5, Chloride 103, Carbon Dioxide 25.0, Anion Gap 9, BUN 8, Creatinine 1.05 H, Estim Creat Clear Calc 49.01, Est GFR (MDRD) Af Amer 70, Est GFR (MDRD) Non-Af 58 L, BUN/Creatinine Ratio 7.6 L, Glucose 89, Calcium 8.7, Total Bilirubin 12.40 H, AST 1241 H, ALT 1228 H, Alkaline Phosphatase 68, Total Protein 6.0 L, Albumin 2.0 L, Globulin 4.0, Albumin/Globulin Ratio 0.5 L 08/12/21 04:44: WBC 10.5, RBC 4.42, Hgb 12.1, Hct 35.3 L, MCV 79.9 L, MCH 27.4, MCHC 34.3, RDW Std Deviation 49.5 H, RDW Coeff of Jovani 17.4 H, Plt Count 310, MPV 12.3 H, Immature Gran % (Auto) 0.500, Neut % (Auto) 63.0, Lymph % (Auto) 18.9 L, [place]on % (Auto) 11.9 H, Eos % (Auto) 5.0, Baso % (Auto) 0.7, Absolute Neuts (auto) 6.6, Absolute Lymphs (auto) 1.98, Nucleated RBC % 0 08/12/21 04:44: Total Bilirubin 11.50 H, Direct Bilirubin 9.30 H, AST 609 H, ALT 900 H, Alkaline Phosphatase 70, Total Protein 6.1 L, Albumin 2.2 L, Globulin 3.9 Micro: Microbiology 08/08/21 12:53 Blood Culture (Wb) - Arm Left Blood Culture - Preliminary No growth in 48 hours. 08/07/21 22:20 Urine, Clean Catch Urine Culture - Final Escherichia coli 08/07/21 22:20 Nasal Secretion SARS-CoV-2 Antigen (Rapid) - Final Radiography Diagnostic Testing: Radiology Impression Biopsy CT 08/11/21 11:30 IMPRESSION: 1. CT directed core needle biopsy of the liver, using CT image guidance with image documentation as described. 2. Conscious Sedation protocol utilized with independent monitoring. Electronically Signed: Torin Minaya MD at 13:33 EST , Physical Exam Narrative GENERAL: cooperative HEENT: Atraumatic; EYES; Icteric, Normal Conjunctiva NECK; supple, normal thyroid, RESPIRATORY: Diminished to auscultation CARDIOVASCULAR: Regular S1 S2, GI: soft, normoactive bowel sounds, : No Renal angle tenderness; EXTREMITIES: No edema, no clubbing, MUSCULOSKELETAL: no muscle wasting NEURO: Awake; no lateralizing signs. SKIN: No Rash PSYCH; Flat affect Assessment & Plan Assessment/Plan (1) Elevated ferritin level: (2) Hyperbilirubinemia: (3) Acute liver failure: (4) UTI (urinary tract infection): (5) Acute acalculous cholecystitis: (6) Normocytic anemia: (7) Methamphetamine use: PLAN: Patient is a 51-year-old lady who presented with progressive generalized weakness and jaundice. Work-up did reveal acute liver failure secondary to acute hepatitis. 1. Acute liver failure ?Secondary to acute hepatitis B. Patient was found to be positive for hepatitis B surface antigen as well as hepatitis B core IgM. Hepatitis a and C serology came back negative. HIV came back negative. Patient was seen in consultation by GI tenofovir has been ordered -08/12/2021; Patient seen admit to improvement in her overall condition. She underwent liver biopsy the day prior. Her LFTs are trending down. Case discussed with Dr. De La Cruz with GI plan is to await results of liver biopsy to determine the course of treatment prior to discharge 2. Acute acalculous cholecystitis ?General surgery consulted no surgical intervention planned for this time 3. Acute cystitis with E. coli ?Patient managed with ciprofloxacin based on culture result 4. Polysubstance abuse ?Including methamphetamine as well as marijuana use, patient counseled on cessation 5. Hypertension - Blood pressure controlled, home medications continued with dose adjustment as needed 6. Dyslipidemia ?Patient statin therapy held in view of her impaired kidney function 7. Tobacco dependence - Counseled on cessation, offered nicotine patch for tobacco cravings 8. DVT prophylaxis ?Subcu heparin Charges/Coding Visit Charges Inpatient E&M: 71291 Subs Hosp L2
[2021-08-12] MEDS: Ciprofloxacin 400 MG/200 ML BAG 200 MG IV ×2 (11:01→22:44)
[2021-08-12] MEDS: hydroCHLOROthiazide 25 MG Tablet PO (11:13)
[2021-08-12] MEDS: Lisinopril 20 MG Tablet PO (11:13)
[2021-08-12] MEDS: Metoprolol(XL)Succ 50 MG Tablet PO (11:13)
[2021-08-12 14:09] LABS: Hepatitis B Core AB IgM Positive (Negative); Hepatitis B Core Ab Total Positive (Negative); Hepatitis Be Ab Positive (Negative); Hepatitis Be Ag Positive (Negative)
[2021-08-12] MEDS: TENOFOVIR DISOPROXIL FUMARATE 300 MG TABLET PO (15:21)
[2021-08-12 17:24] LABS: HEPATITIS B SURFACE AG Positive (Negative); Hepatitis Be Ab Positive (Negative)
[2021-08-12 17:25] LABS: HEPATITIS B SURFACE AG Positive (Negative)
[2021-08-12] MEDS: Ibuprofen 400 MG Tablet PO (17:30)
--- NOTE | 2021-08-12 18:23 | PN_ITS ---
Subjective Subjective Patient continues to feel better as the days ago. Her urine is becoming less dark and her abdominal pain is improved but not completely gone. Objective Data Objective Data Vital Signs: Vital Signs Temp Pulse Resp BP Pulse Ox 97.7 F L 61 16 142/89 H 97 08/12/21 15:22 08/12/21 15:22 08/12/21 15:22 08/12/21 15:22 08/12/21 15:22 Oxygen Flow Rate (L/min) [5] 2 Oxygen Flow Rate (L/min) [4] 2 Oxygen Flow Rate (L/min) [3] 2 Oxygen Flow Rate (L/min) [2] 2 Oxygen Delivery Method [5] Nasal Cannula Oxygen Delivery Method [4] Nasal Cannula Oxygen Delivery Method [3] Nasal Cannula Oxygen Delivery Method [2] Nasal Cannula Oxygen Delivery Method [1 ( Room Air Initial Baseline)] Oxygen Delivery Method Room Air Weight: 143 lb 15.39 oz Body Mass Index (BMI) 26.4 Intake & Output: Intake and Output for Last 24 Hours 08/10/21 08/11/21 08/12/21 23:59 23:59 23:59 Intake Total 780 / 780 270 / 470 510 / 510 Balance 780 / 780 270 / 470 510 / 510 Lab / Micro Data Result Diagrams: 08/12/21 04:44 08/11/21 06:05 Labs: Laboratory Results - last 24 hr 08/08/21 20:10: c-ANCA Antibody <1:20, Atypical p-ANCA <1:20, p-ANCA Antibody <1:20, EBV Capsid Ag IgG Ab 387.0 H, EBV Capsid Ag IgM Ab < 36.0, EBV Nuclear Ag IgG Ab > 600.0 H, EBV Antibody Interp Comment 08/10/21 05:24: Hep Bs Antigen Positive H, Hepatitis Be Antibody Positive H, Hepatitis Be Antigen Positive H 08/10/21 05:24: Hep Bs Antigen Positive H, Hep Bs Antibody , Hep B Core Total Ab Positive H, Hep B Core IgM Ab Positive H, Hepatitis Be Antibody Positive H, H epatitis Be Antigen Positive H, Hepatitis Interpret Not Reportable 08/12/21 04:44: WBC 10.5, RBC 4.42, Hgb 12.1, Hct 35.3 L, MCV 79.9 L, MCH 27.4, MCHC 34.3, RDW Std Deviation 49.5 H, RDW Coeff of Jovani 17.4 H, Plt Count 310, MPV 12.3 H, Immature Gran % (Auto) 0.500, Neut % (Auto) 63.0, Lymph % (Auto) 18.9 L, Nicholas % (Auto) 11.9 H, Eos % (Auto) 5.0, Baso % (Auto) 0.7, Absolute Neuts (auto) 6.6, Absolute Lymphs (auto) 1.98, Nucleated RBC % 0 08/12/21 04:44: Total Bilirubin 11.50 H, Direct Bilirubin 9.30 H, AST 609 H, ALT 900 H, Alkaline Phosphatase 70, Total Protein 6.1 L, Albumin 2.2 L, Globulin 3.9 Micro: Microbiology 08/08/21 12:53 Blood Culture (Wb) - Arm Left Blood Culture - Preliminary No growth in 48 hours. 08/07/21 22:20 Urine, Clean Catch Urine Culture - Final Escherichia coli 08/07/21 22:20 Nasal Secretion SARS-CoV-2 Antigen (Rapid) - Final Physical Exam Const alert General Appearance: cooperative Orientation / Consciousness: oriented to person HEENT hearing grossly normal bilaterally Head and Scalp: normal to inspection Face and Sinus: face symmetric Nose: external nose normal Mouth: oral and palatal mucosa normal Eyes conjunctivae normal General Eye: normal appearance of both eyes Neck full ROM General: normal visual inspection Lymph Lymphatic: no lymphadenopathy noted Chest inspection of chest normal and palpation of chest normal Chest: symmetrical chest wall rise Resp normal respiratory effort Effort and Inspection: able to speak in complete sentences Cardio regular rate GI non-distended Percussion: normal to percussion Rectal Exam: deferred Neuro Speech: speech normal Gait (Neuro): normal gait Assessment & Plan Assessment/Plan (1) Hepatitis B: PLAN: She is on tenofovir and she is not experiencing any side effects. I think it is having a very good effect on her liver function test and her liver enzymes. Her INR continues to improve along with her bilirubin and her AST and ALT along with alkaline phosphatase. (2) Acute liver failure: PLAN: I do not want to start on steroids or Imuran until we have the liver biopsy results back. If her liver enzymes continue to improve on Mucomyst and tenofovir we will just continue that on discharge. Charges/Coding Visit Charges Inpatient E&M: 42782 Subs Hosp L3
[2021-08-12] MEDS: DiphenhydrAMINE 50 MG/ML Syringe 25 MG IV (21:50)
[2021-08-12] MEDS: 0.9% Saline Lock 10 ML Syringe IV ×3 (21:50→22:27)
[2021-08-12] MEDS: MethylPREDNISolone 125 MG/2 ML Vial IV (22:18)
[2021-08-12] MEDS: Metoclopramide 10 MG/2 ML Vial 5 MG IV (22:22)
[2021-08-12] MEDS: Famotidine 200 MG/20 ML MDV 20 MG in 0.9% Normal Saline (Pres. free 8 ML 300 MG IV (22:27)
--- NOTE | 2021-08-12 22:38 | PCM.HOSP.N ---
Hospitalist Note Reported by Nithya FERNANDEZ that patient was experiencing itching and no rash was present however approximately 30 minutes later was notified primary RN that patient now has a rash on her back, abdomen, arms, groin and was also noted to have some eyelid swelling. Patient was initially given Benadryl to help with itching as she has liver failure and this was initially believed to be the cause of the itching. However upon evaluation of patient's rash patient was also given a one-time dose of IV Solu-Medrol, famotidine, Reglan in addition to the previously given Benadryl. Patient was started on tenofovir earlier today and in speaking with Erik pharmacist we believe this is most likely the cause of the allergic reaction. I notified Dr. De La Cruz as he is the physician that ordered that enough of year for her hepatitis B in tenofovir or was subsequently discontinued. Dr. Bolton was notified of treatment plan.
[2021-08-13] VITALS (7 sets, daily range): BP systolic 132–139; BP diastolic 68–79; PULSE 52–77; RESP 16; TEMP 36.3–36.9; O2SAT 92–97
[2021-08-13 05:07] LABS: Ceruloplasmin 25.3 mg/dL (19.0-39.0); Haptoglobin 53 mg/dL (33-346)
[2021-08-13 05:58] LABS: Absolute Lymphocyte Count 0.86 X10^3/uL (0.83-4.51); Absolute Neutrophil Count 16.1 X10^3/uL (2.0-7.7); Basophil# 0.06 X10^3/uL; Basophil% 0.3 % (0-1); Eosinophil# 0.08 X10^3/uL; Eosinophils% 0.5 % (0-5); Hematocrit 40.4 % (37-47); Hemoglobin 14.2 g/dL (12.0-15.0); Lymphocyte # 0.86 X10^3/ul (0.83-4.51); Lymphocyte % 4.9 % (19-41); Mean Corp Hgb Conc 35.1 g/dL (32-36); Mean Corpuscular Hgb 28.5 pg (27.0-32.0); Mean Platelet Vol. 12.8 fl (6.2-12.0); Monocyte# 0.39 X10^3/uL; Monocyte% 2.2 % (0-10); NRBC Flagged by Analyzer 0 % (0-5); Neutrophil # 16.05 X10^3/uL (2.7-7.7); Neutrophil % 91.1 % (47-70); Platelet Count 378 K/mm3 (150-450); RBC Distribution Width CV 17.3 % (11.6-14.6); Red Blood Count 4.99 M/mm3 (4.2-5.4); White Blood Count 17.6 K/mm3 (4.4-11.0)
[2021-08-13 06:30] LABS: AST(SGOT) 292 U/L (15-37); Alanine Aminotransfer ALT/SGPT 671 U/L (13-56); Albumin, Serum 2.3 g/dL (3.2-5.0); Alkaline Phosphatase 77 U/L (45-117); Bilirubin, Direct 8.68 mg/dL (0.00-0.30); Globulin 4.3 g/dL (2.2-4.2); Protein, Total 6.6 g/dL (6.4-8.2)
--- NOTE | 2021-08-13 07:24 | PCM.PN.HOSP ---
Subjective Subjective Patient seen her LFTs trending down. Biopsy results reviewed. Objective Data Objective Data Vital Signs: Vital Signs Temp Pulse Resp BP Pulse Ox 97.4 F L 56 L 16 132/79 H 97 08/13/21 04:31 08/13/21 04:31 08/13/21 04:31 08/13/21 04:31 08/13/21 04:31 Oxygen Flow Rate (L/min) [5] 2 Oxygen Flow Rate (L/min) [4] 2 Oxygen Flow Rate (L/min) [3] 2 Oxygen Flow Rate (L/min) [2] 2 Oxygen Delivery Method [5] Nasal Cannula Oxygen Delivery Method [4] Nasal Cannula Oxygen Delivery Method [3] Nasal Cannula Oxygen Delivery Method [2] Nasal Cannula Oxygen Delivery Method [1 ( Room Air Initial Baseline)] Oxygen Delivery Method Room Air Weight: 64.9 kg Body Mass Index (BMI) 26.4 Intake & Output: Intake and Output for Last 24 Hours 08/11/21 08/12/21 08/13/21 23:59 23:59 23:59 Intake Total 270 / 470 1130 / 1130 Balance 270 / 470 1130 / 1130 Lab / Micro Data Result Diagrams: 08/13/21 05:16 08/11/21 06:05 Labs: Laboratory Results - last 24 hr 08/10/21 05:24: Hep Bs Antigen Positive H, Hepatitis Be Antibody Positive H, Hepatitis Be Antigen Positive H 08/10/21 05:24: Hep Bs Antigen Positive H, Hep Bs Antibody , Hep B Core Total Ab Positive H, Hep B Core IgM Ab Positive H, Hepatitis Be Antibody Positive H, Hepatitis Be Antigen Positive H, Hepatitis Interpret Not Reportable 08/13/21 05:16: WBC 17.6 H, RBC 4.99, Hgb 14.2, Hct 40.4, MCV 81.0, MCH 28.5, MCHC 35.1, RDW Std Deviation 50.0 H, RDW Coeff of Jovani 17.3 H, Plt Count 378, MPV 12.8 H, Immature Gran % (Auto) 1.000 H, Neut % (Auto) 91.1 H, Lymph % (Auto) 4.9 L, [place] % (Auto) 2.2, Eos % (Auto) 0.5, Baso % (Auto) 0.3, Absolute Neuts (auto) 16.1 H, Absolute Lymphs (auto) 0.86, Nucleated RBC % 0 08/13/21 05:16: Total Bilirubin 11.10 H, Direct Bilirubin 8.68 H, AST 292 H, ALT 671 H, Alkaline Phosphatase 77, Total Protein 6.6, Albumin 2.3 L, Globulin 4.3 H Micro: Microbiology 08/08/21 12:53 Blood Culture (Wb) - Arm Left Blood Culture - Preliminary No growth in 48 hours. 08/07/21 22:20 Urine, Clean Catch Urine Culture - Final Escherichia coli 08/07/21 22:20 Nasal Secretion SARS-CoV-2 Antigen (Rapid) - Final Physical Exam Narrative GENERAL: cooperative HEENT: Atraumatic; EYES; Icteric, Normal Conjunctiva NECK; supple, normal thyroid, RESPIRATORY: Diminished to auscultation CARDIOVASCULAR: Regular S1 S2, GI: soft, normoactive bowel sounds, : No Renal angle tenderness; EXTREMITIES: No edema, no clubbing, MUSCULOSKELETAL: no muscle wasting NEURO: Awake; no lateralizing signs. SKIN: No Rash PSYCH; Flat affect Assessment & Plan Assessment/Plan (1) Elevated ferritin level: (2) Hyperbilirubinemia: (3) Acute liver failure: (4) UTI (urinary tract infection): (5) Acute acalculous cholecystitis: (6) Normocytic anemia: (7) Methamphetamine use: PLAN: Patient is a 51-year-old lady who presented with progressive generalized weakness and jaundice. Work-up did reveal acute liver failure secondary to acute hepatitis. 1. Acute liver failure ?Secondary to acute hepatitis B. Patient was found to be positive for hepatitis B surface antigen as well as hepatitis B core IgM. Hepatitis a and C serology came back negative. HIV came back negative. Patient was seen in consultation by GI tenofovir has been ordered -08/12/2021; Patient seen admit to improvement in her overall condition. She underwent liver biopsy the day prior. Her LFTs are trending down. Case discussed with Dr. De La Cruz with GI plan is to await results of liver biopsy to determine the course of treatment prior to discharge ?08/13/2021; patient biopsy results as below Biopsy Results Sections show fulminant acute hepatitis with predominance in portal areas and extending into liver parenchyma. Trichrome stain shows broad band fibrosis and focal bridging fibrosis with prominent ?chicken-wire? fibrosis. Reticulin stain reveals disrupted hepatic parenchymal architecture. Iron stain does not reveal intraparenchymal deposition of iron and is consistent with bile stasis. PAS with and without diastase does not reveal accumulation of abnormal proteins. -Case discussed with GI patient to be started on high-dose steroid. Dr. De La Cruz also recommended consulting ID. Case further discussed with Dr. Gardner will await recommendations 2. Acute acalculous cholecystitis ?General surgery consulted no surgical intervention planned for this time 3. Acute cystitis with E. coli ?Patient managed with ciprofloxacin based on culture result 4. Polysubstance abuse ?Including methamphetamine as well as marijuana use, patient counseled on cessation 5. Hypertension - Blood pressure controlled, home medications continued with dose adjustment as needed 6. Dyslipidemia ?Patient statin therapy held in view of her impaired kidney function 7. Tobacco dependence - Counseled on cessation, offered nicotine patch for tobacco cravings 8. DVT prophylaxis ?Subcu heparin Charges/Coding Visit Charges Inpatient E&M: 45399 Subs Hosp L2
[2021-08-13] MEDS: Metoprolol(XL)Succ 50 MG Tablet PO (10:14)
[2021-08-13] MEDS: hydroCHLOROthiazide 25 MG Tablet PO (10:14)
[2021-08-13] MEDS: Lisinopril 20 MG Tablet PO (10:14)
[2021-08-13 10:16] LABS: Copper, Serum or Plasma 117 ug/dL (80-158); Immunoglobulin G 1454 mg/dL (586-1602)
[2021-08-13] MEDS: Ciprofloxacin 400 MG/200 ML BAG 200 MG IV (10:53)
--- NOTE | 2021-08-13 15:40 | CASEMGMT ---
Social Work Note ITALO updated that pt is leaving AMA and stated I can go home and , I want to leave. SW in to speak with pt. SW introduced self and role at [facility]. Pt is teary eyed. SW tried to speak with pt. Pt states that her daughter is sick at [facility] and she needs to leave [facility]. SW offered support to pt. Pt states you guys are holding me here, just give me the medications and I can leave. SW informed pt that this worker was under the impression that she had to wait for the medication as it wasn't available today. Pt states well my pharmacy may have it, I need to leave. SW informed pt that this worker needs to speak to her regarding the comment she made about wanting to go home and . SW asked pt about suicidal thoughts/plans/ideations. Pt didn't answer this worker. SW asked pt if she was planning on killing herself and pt said janek no. Pt denied any history of suicidal thoughts/plans/ideations. Miladys Atkinson RECREATION FACILITY ATTENDANT, OINTMENT MILL TENDER
--- NOTE | 2021-08-13 15:45 | NURSING ---
Patient states she needs to leave. She states she wants to get out of here to be with her daughter who is in the hospital. This RN attempted to encourage patient to stay in the hospital to get Lamivudine. Unfortunately this medication is not available until tomorrow. She continues to refuse stating that she needs to leave and she is leaving no matter what to be with her daughter. AMA papers signed. Dr. Gardner, Dr. Pa and Dr. De La Cruz all aware.
--- NOTE | 2021-08-13 16:02 | DS.PCM_ITS ---
Providers Date of Admission: 08/08/21 Primary Care Physician: Lisbet Primary Care Phys Consultations 08/08/21 05:26 Consult: Gastroenterology Routine Consulting Provider: Dario Gastroenterandreina Reason for Consult: Liver failure EMERGENT Consult: No Notified: Yes Date Notified: 08/08/21 Time Notified: 05:27 Method of Notification: Verbal 08/08/21 11:12 Consult: General Surgery Routine Consulting Provider: Chase Rodríguez Reason for Consult: Dr. De La Cruz Request- jaundiced, had MRCP today EMERGENT Consult: No MD Notified: Yes Date Notified: 08/08/21 Time Notified: 11:13 Method of Notification: Text 08/13/21 10:50 Consult: Infectious Disease Routine Consulting Provider: Srikanth Gardner Reason for Consult: Hep B EMERGENT Consult: No Notified: Yes Date Notified: 08/13/21 Time Notified: 10:50 Method of Notification: Verbal Reason For Visit: LIVER FAILURE Diagnosis Discharge Diagnosis (1) Elevated ferritin level: Status: Acute Code(s): R79.89 - Other specified abnormal findings of blood chemistry (2) Hyperbilirubinemia: Status: Acute Code(s): E80.6 - Other disorders of bilirubin metabolism (3) Acute liver failure: Status: Acute Code(s): K72.00 - Acute and subacute hepatic failure without coma (4) UTI (urinary tract infection): Status: Acute Code(s): N39.0 - Urinary tract infection, site not specified (5) Acute acalculous cholecystitis: Status: Acute Code(s): K81.0 - Acute cholecystitis (6) Normocytic anemia: Status: Acute Code(s): D64.9 - Anemia, unspecified (7) Methamphetamine use: Status: Acute Code(s): F15.10 - Other stimulant abuse, uncomplicated Medications at Discharge Home Medications aspirin 81 mg PO BREAKFAST #30 tab 01/30/21 atorvastatin 80 mg PO QHS #30 tab 01/30/21 hydrochlorothiazide 25 mg PO DAILY #30 tab 01/30/21 lisinopril 20 mg PO DAILY #30 tab 01/30/21 metoprolol succinate 50 mg PO DAILY #30 tab 01/30/21 Hospital Course Summary of Care Provided Minutes Spent on Discharge: 45 Hospital Course: Patient is a 51-year-old lady who presented with progressive generalized weakness and jaundice. Work-up did reveal acute liver failure secondary to acute hepatitis. 1. Acute liver failure ?Secondary to acute hepatitis B. Patient was found to be positive for hepatitis B surface antigen as well as hepatitis B core IgM. Hepatitis a and C serology came back negative. HIV came back negative. Patient was seen in consultation by GI tenofovir has been ordered -08/12/2021; Patient seen admit to improvement in her overall condition. She underwent liver biopsy the day prior. Her LFTs are trending down. Case discussed with Dr. De La Cruz with GI plan is to await results of liver biopsy to determine the course of treatment prior to discharge ?08/13/2021; patient biopsy results as below Biopsy Results Sections show fulminant acute hepatitis with predominance in portal areas and extending into liver parenchyma. Trichrome stain shows broad band fibrosis and focal bridging fibrosis with prominent ?chicken-wire? fibrosis. Reticulin stain reveals disrupted hepatic parenchymal architecture. Iron stain does not reveal intraparenchymal deposition of iron and is consistent with bile stasis. PAS with and without diastase does not reveal accumulation of abnormal proteins. -Case discussed with GI patient to be started on high-dose steroid. Dr. De La Cruz also recommended consulting ID. Case further discussed with Dr. Gardner will await recommendations -Patient elected to sign out AGAINST MEDICAL ADVICE rather than to wait for antiviral medications recommended by both GI and ID. Attempts made for patient to resend his decision proved futile 2. Acute acalculous cholecystitis ?General surgery consulted no surgical intervention planned for this time 3. Acute cystitis with E. coli ?Patient managed with ciprofloxacin based on culture result 4. Polysubstance abuse ?Including methamphetamine as well as marijuana use, patient counseled on cessation 5. Hypertension - Blood pressure controlled, home medications continued with dose adjustment as needed 6. Dyslipidemia ?Patient statin therapy held in view of her impaired kidney function 7. Tobacco dependence - Counseled on cessation, offered nicotine patch for tobacco cravings 8. DVT prophylaxis ?Subcu heparin Medical Records Data Medical Nutrition Assessment Dietitian: Malnutrition Criteria Met Start: 08/13/21 12:14 Freq: Status: Active Protocol: Document 08/13/21 12:14 RMA (Rec: 08/13/21 12:14 RMA [id number]) Nutrition Malnutrition Evidence of Malnutrition Exists Yes Malnutrition (severe): Acute Illness/Injury Evidenced By Suboptimal Energy Intake ( Severe),Weight Loss (Severe) Clinical Problem Acute Disease or Injury Related Malnutrition Etiology Severe protein/calorie malnutrition in the context of acute illness related to inflammation, poor appetite and inadequate oral intake Signs/Symptoms as evidenced by ~2% wt loss x 5 days and PO meeting less than 50% of estimated nutrition needs at meals Status Active Problem Recommendation Dietitian Recommendations/Changes Will liberalize diet to Regular given signs of malnutrition. Will continue 240ml ensure clear BID w/ meals as tolerated. Will add magic cup w/ lunch for tolerance. Restrict diet only as needed-- monitor need to restrict protein/sodium/fluid given liver disease. Weight / BMI Weight Weight: 64.9 kg Body Mass Index (BMI) 26.4 ABG / Lab / Microbiology Data Result Diagrams: 08/13/21 05:16 08/11/21 06:05 Laboratory: Laboratory Results - last 24 hr 08/10/21 05:24: Hep Bs Antigen Positive H, Hepatitis Be Antibody Positive H, Hepatitis Be Antigen Positive H 08/10/21 05:24: Hep Bs Antigen Positive H, Hep Bs Antibody , Hep B Core Total Ab Positive H, Hep B Core IgM Ab Positive H, Hepatitis Be Antibody Positive H, Hepatitis Be Antigen Positive H, Hepatitis Interpret Not Reportable 08/10/21 05:24: Haptoglobin 53, Ceruloplasmin 25.3, Serum Copper 117, IgG 1454 08/13/21 05:16: WBC 17.6 H, RBC 4.99, Hgb 14.2, Hct 40.4, MCV 81.0, MCH 28.5, MC HC 35.1, RDW Std Deviation 50.0 H, RDW Coeff of Jovani 17.3 H, Plt Count 378, MPV 12.8 H, Immature Gran % (Auto) 1.000 H, Neut % (Auto) 91.1 H, Lymph % (Auto) 4.9 L, [place] % (Auto) 2.2, Eos % (Auto) 0.5, Baso % (Auto) 0.3, Absolute Neuts (auto) 16.1 H, Absolute Lymphs (auto) 0.86, Nucleated RBC % 0 08/13/21 05:16: Total Bilirubin 11.10 H, Direct Bilirubin 8.68 H, AST 292 H, ALT 671 H, Alkaline Phosphatase 77, Total Protein 6.6, Albumin 2.3 L, Globulin 4.3 H Microbiology: Microbiology 08/08/21 12:53 Blood Culture (Wb) - Arm Left Blood Culture - Final No growth in 5 days. 08/07/21 22:20 Urine, Clean Catch Urine Culture - Final Escherichia coli 08/07/21 22:20 Nasal Secretion SARS-CoV-2 Antigen (Rapid) - Final Radiography Diagnostic Testing: Radiology Impression MRCP 08/08/21 03:05 IMPRESSION: Suspected acute cholecystitis possibly acalculous cholecystitis. Electronically Signed: Lemuel García MD at 10:33 EST , ADDENDUM: 08/13/21 0746 Meaningful Use Info Meaningful Use Diagnoses (Choose all that apply): None applicable Discharge Plan Admission Admit Date/Time: 08/08/21 01:04 Attending Provider: Dominic Pa Primary Care Provider: Care Physician,No Primary Consulting Providers: Chase Rodríguez ; Srikanth Gardner Instructions Patient Instructions: Liver Biopsy, Procedural Sedation Discharge Orders/Prescriptions Prescriptions: No Action metoprolol succinate 50 mg Tablet Extended Release 24 Hr 50 mg PO DAILY Qty: 30 RF: 1 lisinopril 20 mg Tablet 20 mg PO DAILY Qty: 30 RF: 1 aspirin 81 mg Tablet,Chewable 81 mg PO BREAKFAST Qty: 30 RF: 1 hydrochlorothiazide 25 mg Tablet 25 mg PO DAILY Qty: 30 RF: 1 atorvastatin 80 mg tablet 80 mg PO QHS Qty: 30 RF: 1 Referrals / Follow Up: Care Physician,No Primary [Primary Care Provider] - Disposition Disposition (needs filled in before D/C Order can be placed): Against Medical Advice Charges/Coding Visit Charges Inpatient E&M: 41200 Disch Hosp
== END 2021-08-13 16:00 | disposition left against medical advice (07) ==
LOC: ED 22:19 → MS3 08-08 01:11
PROVIDERS: Hospitalist; Internal Medicine; Internal Medicine Gastroenterology; Admitting Provider Internal Medicine; Emergency Provider Student in an Organized Health Care Education/Training Program; Visit Provider Internal Medicine
DX: B16.9 Acute hepatitis B without delta-agent and without hepatic coma (principal); K72.00 Acute and subacute hepatic failure without coma; K81.0 Acute cholecystitis; N17.9 Acute kidney failure, unspecified; K72.10 Chronic hepatic failure without coma; F15.10 Other stimulant abuse, uncomplicated; F17.210 Nicotine dependence, cigarettes, uncomplicated; E78.5 Hyperlipidemia, unspecified; K76.0 Fatty (change of) liver, not elsewhere classified; D64.9 Anemia, unspecified; E87.6 Hypokalemia; I12.9 Hypertensive chronic kidney disease with stage 1 through stage 4 chronic kidney disease, or unspecified chronic kidney disease; B96.20 Unspecified Escherichia coli [E. coli] as the cause of diseases classified elsewhere; N18.2 Chronic kidney disease, stage 2 (mild); N30.00 Acute cystitis without hematuria; L73.2 Hidradenitis suppurativa; Z79.82 Long term (current) use of aspirin; R74.01 Elevation of levels of liver transaminase levels; R79.1 Abnormal coagulation profile; Z23 Encounter for immunization; Z79.899 Other long term (current) drug therapy; T50.995A Adverse effect of other drugs, medicaments and biological substances, initial encounter; Y92.239 Unspecified place in hospital as the place of occurrence of the external cause
CPT/HCPCS: 36415; 36600; 71045; 74177; 74181; 77012; 80048; 80053; 80074; 80076; 80307; 80329; 81001; 82140; 82390; 82525; 82550; 82728; 82784; 82803; 83010; 83516; 83605; 83615; 83690; 83735; 84100; 85025; 85610; 85652; 85730; 86140; 86225; 86235; 86256; 86645; 86664; 86665; 86703; 86705; 86706; 86707; 87040; 87077; 87086; 87088; 87186; 87340; 87350; 87426; 88307; 88313; 97802; 97803; 99156; 99285; 99406; J7030; J7040; Q9967; 90686; A4216; G0480; J0744; J2405; J3490

== ENCOUNTER → 2021-08-28 08:56 | Outpatient (CLI) | payer MEDICAID, SELFPAY ==
[2021-08-28 09:12] LABS: Absolute Lymphocyte Count 2.05 X10^3/uL (0.83-4.51); Absolute Neutrophil Count 4.5 X10^3/uL (2.0-7.7); Basophil# 0.09 X10^3/uL; Basophil% 1.1 % (0-1); Eosinophils% 7.5 % (0-5); Hematocrit 41.1 % (37-47); Hemoglobin 13.3 g/dL (12.0-15.0); Lymphocyte # 2.05 X10^3/ul (0.83-4.51); Lymphocyte % 25.6 % (19-41); Mean Corp Hgb Conc 32.4 g/dL (32-36); Mean Corpuscular Hgb 28.5 pg (27.0-32.0); Mean Platelet Vol. 11.1 fl (6.2-12.0); Monocyte# 0.72 X10^3/uL; NRBC Flagged by Analyzer 0 % (0-5); Neutrophil # 4.52 X10^3/uL (2.7-7.7); Neutrophil % 56.4 % (47-70); Platelet Count 377 K/mm3 (150-450); RBC Distribution Width SD 49.2 fl (35.1-43.9); Red Blood Count 4.67 M/mm3 (4.2-5.4)
[2021-08-28 09:38] LABS: ALB/GLOB Ratio 0.7 RATIO (0.9-2.4); AST(SGOT) 77 U/L (15-37); Alanine Aminotransfer ALT/SGPT 106 U/L (13-56); Albumin, Serum 3.3 g/dL (3.2-5.0); Alkaline Phosphatase 60 U/L (45-117); Anion Gap 3 (5-15); BUN 16 mg/dL (7-18); Bilirubin, Direct 1.49 mg/dL (0.00-0.30); Calcium,Total 8.8 mg/dL (8.5-10.1); Chloride 106 mmol/L (98-107); Creatinine, Serum 1.23 mg/dL (0.55-1.02); EST Glomerular Filtration Rate 49 mL/min (>60); Est Glom Filt Rate - Afr Amer 59 mL/min (>60); Ferritin 133 ng/mL (8-252); Globulin 4.5 g/dL (2.2-4.2); Glucose 102 mg/dL (74-106); LDH 187 U/L (84-246); Potassium 3.8 mmol/L (3.5-5.1); Protein, Total 7.8 g/dL (6.4-8.2); Sodium Level 138 mmol/L (136-145)
[2021-08-28 09:43] LABS: International Normalized Ratio 1.1; Prothrombin Time (Protime)PT. 13.3 SECONDS (11.7-14.9)
[2021-08-28 09:51] LABS: CRP < 2.90 mg/L (0.0-3.0)
[2021-08-28 09:57] LABS: Erythrocyte Sedimentation Rate 25 mm/hr (0-30)
== END ==
PROVIDERS: Nurse Practitioner Adult Health; Referring Provider Internal Medicine Gastroenterology; Visit Provider Internal Medicine Gastroenterology
DX: B19.10 Unspecified viral hepatitis B without hepatic coma (principal)
CPT/HCPCS: 36415; 80053; 82248; 82728; 83615; 85025; 85610; 85652; 86140

== ENCOUNTER 2022-04-22 16:20 | Emergency (ER) | payer MEDICAID, SELFPAY ==
[2022-04-22 16:21] VITALS: BP 184/116; PULSE 87; RESP 18; TEMP 36.4; O2SAT 100; BMI 27.4
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
[2022-04-22] MEDS: Acetaminophen 500 MG Tablet PO (16:48)
[2022-04-22] MEDS: Ibuprofen 200 MG Tablet 400 MG PO (16:49)
--- NOTE | 2022-04-22 16:55 | RAD_ITS ---
STUDY: X-RAY - RIGHT HUMERUS REASON FOR EXAM: Female, 51 years old. Upper arm pain after fall 2 weeks ago. TECHNIQUE: 2 view(s) of the humerus. COMPARISON: None. FINDINGS: There is a minimally displaced fracture of the surgical neck of the humerus. The fracture may extend up into the region of the greater trochanter. There is no dislocation of the glenohumeral joint.. The humeral shaft and elbow appear unremarkable. There is no demonstrated soft tissue abnormality. RAD/Humerus min 2 Views IMPRESSION: Minimally displaced fracture of the humeral neck without dislocation. Electronically Signed: Brett Altamirano DO at 17:15 EDT ,
--- NOTE | 2022-04-22 16:55 | RAD_ITS ---
STUDY: X-RAY - RIGHT SHOULDER REASON FOR EXAM: Female, 51 years old. Right shoulder pain after fall 2 weeks ago. TECHNIQUE: 3 view(s) of the shoulder. COMPARISON: Right clavicle and right humerus, April 22, 2022. FINDINGS: Normal glenohumeral articulation. Normal acromioclavicular joint. Normal acromion. There is a comminuted fracture of the humeral neck with probable extension into the greater tuberosity. The soft tissue structures are unremarkable. Normal visualized pulmonary apex. RAD/Shoulder min 2 Views IMPRESSION: Minimally displaced fracture of the humeral head and neck. Electronically Signed: Brett Altamirano DO at 17:17 EDT ,
--- NOTE | 2022-04-22 16:55 | RAD_ITS ---
STUDY: X-RAY - RIGHT CLAVICLE REASON FOR EXAM: Female, 51 years old. Right clavicular pain after fall. TECHNIQUE: 2 view(s) of the clavicle. COMPARISON: Right shoulder, April 22, 2022 FINDINGS: Normal clavicle. There is minimal widening of the AC joint consistent with a Type I acromioclavicular dislocation. There is no widening of the coracoclavicular distance. Normal visualized sternoclavicular articulation. There is a comminuted fracture of the right humeral neck and head without dislocation of the glenohumeral joint. Normal visualized pulmonary apex. RAD/Clavicle IMPRESSION: 1. Degenerative changes of acromioclavicular joint. There is no clavicular fracture or dislocation. 2. Fracture of the right humeral head and neck. Electronically Signed: Brett Altamirano DO at 17:16 EDT ,
== END 2022-04-22 18:31 | disposition home or self-care (01) ==
PROVIDERS: Emergency Provider Emergency Medicine; PCP Family Medicine; Visit Provider Emergency Medicine
DX: S42.301A Unspecified fracture of shaft of humerus, right arm, initial encounter for closed fracture (principal); F17.210 Nicotine dependence, cigarettes, uncomplicated; I10 Essential (primary) hypertension; Z86.73 Personal history of transient ischemic attack (TIA), and cerebral infarction without residual deficits; Z79.899 Other long term (current) drug therapy; V19.9XXA Pedal cyclist (driver) (passenger) injured in unspecified traffic accident, initial encounter
CPT/HCPCS: 73000; 73030; 73060; 99284

== ENCOUNTER 2022-04-29 16:28 | Emergency (ER) | payer MEDICAID, SELFPAY ==
[2022-04-29 16:30] VITALS: BP 192/114; PULSE 82; RESP 16; TEMP 36.2; O2SAT 98; BMI 26.5
--- NOTE | 2022-04-29 16:41 | CT_ITS ---
We are attempting to reach an attending provider to discuss findings. An addendum with communication details will be sent when the communication is complete. EXAM: CT ANGIOGRAPHY HEAD AND NECK WITH INTRAVENOUS CONTRAST CLINICAL INDICATION: Neuro deficit, acute, stroke suspected TECHNIQUE: [place] [facility] [place]/head and neck CT angiography protocol performed with intravenous contrast. This CT exam was performed using one or more of the following dose reduction techniques: automated exposure control, adjustment of the mA and/or kV according to patient size, and/or use of iterative reconstruction technique. This report was created using [employer] report [employer] technology. MIP reconstructed images were created and reviewed. CONTRAST: IV 100mL Isovue-[id number] COMPARISON: None. FINDINGS: HEAD: RIGHT ANTERIOR CEREBRAL ARTERY: Unremarkable. No significant stenosis at the visualized segments. Anterior communicating artery is present. No aneurysm. RIGHT MIDDLE CEREBRAL ARTERY: Unremarkable. No significant stenosis at the visualized segments. No aneurysm. RIGHT POSTERIOR CEREBRAL ARTERY: There is bilateral origin of the posterior cerebral arteries which is an anatomic variant. No occlusion or significant stenosis. No aneurysm. RIGHT INTRACRANIAL INTERNAL CAROTID ARTERY: Unremarkable. No significant stenosis. No dissection or occlusion. RIGHT INTRACRANIAL VERTEBRAL ARTERY: Unremarkable. No significant stenosis. No dissection or occlusion. LEFT ANTERIOR CEREBRAL ARTERY: Unremarkable. No significant stenosis at the visualized segments. No aneurysm. LEFT MIDDLE CEREBRAL ARTERY: Unremarkable. No significant stenosis at the visualized segments. No aneurysm. LEFT POSTERIOR CEREBRAL ARTERY: See above. LEFT INTRACRANIAL INTERNAL CAROTID ARTERY: Unremarkable. No significant stenosis. No dissection or occlusion. LEFT INTRACRANIAL VERTEBRAL ARTERY: Unremarkable. No significant stenosis. No dissection or occlusion. BASILAR ARTERY: Unremarkable. No significant stenosis. No aneurysm. OTHER VASCULATURE: No vascular malformation. NECK: RIGHT COMMON CAROTID ARTERY: Unremarkable. No significant stenosis. No dissection or occlusion. RIGHT EXTRACRANIAL INTERNAL CAROTID ARTERY: Unremarkable. No significant stenosis. No dissection or occlusion. RIGHT EXTERNAL CAROTID ARTERY: Unremarkable. No occlusion. RIGHT EXTRACRANIAL VERTEBRAL ARTERY: Unremarkable. No significant stenosis. No dissection or occlusion. LEFT COMMON CAROTID ARTERY: Unremarkable. No significant stenosis. No dissection or occlusion. LEFT EXTRACRANIAL INTERNAL CAROTID ARTERY: Unremarkable. No significant stenosis. No dissection or occlusion. LEFT EXTERNAL CAROTID ARTERY: Unremarkable. No occlusion. LEFT EXTRACRANIAL VERTEBRAL ARTERY: Unremarkable. No significant stenosis. No dissection or occlusion. GREAT VESSELS OF AORTIC ARCH: Unremarkable as visualized. Normal anatomy, patent. LUNG APICES: Unremarkable as visualized. HEAD and NECK: BONES/JOINTS: Unremarkable. No discrete lytic or blastic abnormalities. SOFT TISSUES: Unremarkable. CAROTID STENOSIS REFERENCE USING NASCET CRITERIA: % ICA stenosis = (1 - narrowest ICA diameter/diameter of distal cervical ICA) x 100. Mild - <50% stenosis. Moderate - 50-69% stenosis. Severe - 70-94% stenosis. Near occlusion - 95-99% stenosis. Occluded - 100% stenosis. CT/STROKE CTA Head AND Neck W/Con IMPRESSION: No acute findings in the arteries of the head and neck. Electronically Signed: Tonio Smiley MD at 17:10 EST ,
--- NOTE | 2022-04-29 16:41 | EKG12_ITS ---
Test Reason : STROKE TEAM Blood Pressure : / mmHG Vent. Rate : 071 BPM Atrial Rate : 071 BPM P-R Int : 162 ms QRS Dur : 082 ms QT Int : 444 ms P-R-T Axes : 067 002 038 degrees QTc Int : 482 ms Normal sinus rhythm Inferior infarct , age undetermined Abnormal ECG Confirmed by FLORES GREEN, MARCY ([id number]), makeup editor CONNOR CAR ([id number]) on 05/05/2022 9:31:14 A M Referred By: Confirmed By:BONNIE TANNER MD
--- NOTE | 2022-04-29 16:41 | CT_ITS ---
We are attempting to reach an attending provider to discuss findings. An addendum with communication details will be sent when the communication is complete. EXAM: CT HEAD WITHOUT INTRAVENOUS CONTRAST CLINICAL INDICATION: Neuro deficit, acute, stroke suspected TECHNIQUE: Multiple axial images were obtained of the head without intravenous contrast. This CT exam was performed using one or more of the following dose reduction techniques: automated exposure control, adjustment of the mA and/or kV according to patient size, and/or use of iterative reconstruction technique. This report was created using [employer] report [employer] technology. COMPARISON: 01/28/2021 FINDINGS: BRAIN AND EXTRA-AXIAL SPACES: There is hypoattenuation in the periventricular white matter. There are remote lacunar infarcts in the basal ganglia. No intra- or extra-axial hemorrhage. No intracranial mass or mass effect. Posterior fossa structures are unremarkable. No hydrocephalus. Basal cisterns are patent. BONES/JOINTS: Unremarkable. No discrete lytic or blastic abnormalities. SINUSES: There is total opacification of the right maxillary sinus. MASTOID AIR CELLS: Unremarkable. Clear. ORBITS: Visualized globes, extraocular muscles, optic nerves and retrobulbar fat appear unremarkable. CT/STROKE Brain/Head without Cont IMPRESSION: 1. No acute intracranial abnormality. There has been no significant change from the reference examination. 2. Stable underlying small vessel ischemia. 3. Chronic right maxillary sinusitis. 4. Aspects score 10. Electronically Signed: Tonio Smiley MD at 17:01 EST ,
--- NOTE | 2022-04-29 16:42 | EDS_ITS ---
HPI History of Present Illness Chief Complaint: Eye Problem Informant: patient Narrative Narrative: Patient has had symptoms since he woke up this morning, presenting at around 4:30 PM for it. She has globally blurred vision without diplopia, diffuse bifrontal headache, nausea, and ataxia. She states she does feel vertiginous like things are moving in her head. It does not get worse when she turns her head and it has been constant all day. She was normal last night when she went to bed. She states she is supposed to be on lisinopril for blood pressure, and may be other medication she does not know, she states she has been out of them for over a month and not taken anything and at least that amount of time. Blood pressure here in triage is 192/114. She denies any peripheral neurologic symptoms. PFSH PFSH Medical History CVA (cerebral vascular accident) Hepatitis B Hidradenitis suppurativa Hypertension Left axillary hidradenitis Tobacco use Home Medications NK 04/29/22 [History Last Taken Unknown] Allergy/AdvReac Type Severity Reaction Status Date / Time Penicillins Allergy Hives Verified 04/29/22 16:36 Family History Mother CVA (cerebral vascular accident) CAD (coronary artery disease) Hypertension Heart disease Myocardial infarction Father CAD (coronary artery disease) Heart disease Hypertension Myocardial infarction Surgical History H/O umbilical hernia repair History of bilateral tubal ligation History of eye surgery Hx of cataract surgery S/P lens implant Status post glaucoma surgery Status post tonsillectomy and adenoidectomy Social History household members: none Smoking Status: Current every day smoker tobacco type: cigarettes how long ago did patient quit smoking: Patient reports 1/2 ppd cigarette tobacco use since teen. alcohol intake: never substance use type: does not use ROS ROS ED Constitutional Constitutional ED: Denies chills or fever(s) Eyes Eyes: Reports blurry vision bilateral and change in vision; Denies diplopia ENT ENT ED: Denies rhinorrhea or sore throat Cardiovascular Cardiovascular: Denies chest pain or palpitations Respiratory/Chest Respiratory/Chest: Denies cough or dyspnea Gastrointestinal Gastrointestinal: Reports nausea; Denies abdominal pain, diarrhea or vomiting Genitourinary Genitourinary ED: Denies dysuria or hematuria Musculoskeletal Musculoskeletal: Denies back pain or neck pain Integumentary Denies abscess or rash Neurologic Neurologic: Reports headache(s) and vertigo; Denies paresthesias or weakness Psychiatric Psychiatric: Denies anxiety or suicidal thoughts EXAM Physical Exam Const Vital Signs: 04/29/22 16:30 04/29/22 16:56 04/29/22 16:57 Temperature 97.2 F L 97.2 F L Temperature Source Temporal Temporal Pulse Rate 82 70 Respiratory Rate 16 12 Blood Pressure 192/114 H 235/116 H Blood Pressure Mean 140 155 Pulse Ox 98 98 97 Oxygen Delivery Method Room Air Room Air Room Air 04/29/22 17:07 04/29/22 17:17 04/29/22 17:35 Temperature Temperature Source Pulse Rate 76 66 75 Respiratory Rate 17 18 20 H Blood Pressure 209/109 H 171/119 H 187/101 H Blood Pressure Mean 142 136 129 Pulse Ox 99 99 94 Oxygen Delivery Method Room Air Room Air Room Air Positive well nourished and well developed General Appearance ED: well developed and NAD HEENT Reports moist mucous membranes normocephalic and atraumatic Eyes PERRL and EOMs intact bilaterally Neck full ROM and supple Resp normal respiratory effort and clear to auscultation bilaterally Cardio regular rate, regular rhythm and no murmurs GI non-tender and non-distended Auscultation: normoactive bowel sounds Palpation: soft Back/Spine no CVA tenderness General Back: other FROM Extremity normal to inspection General Extremety ED: Negative for edema, pulses abnormal or tenderness General Extremity: Negative for edema or pulses abnormal Neuro Sensorium / Orientation: awake and alert Psych mental status grossly normal Skin no rashes or lesions noted and no wounds MDM MDM MDM Narrative Medical decision making narrative: Asked to see patient in triage due to possible stroke symptoms. She is a very poor historian and does not answer simple questions with a direct answer, and appears to not feel well. Therefore we call a stroke team, she is not an IV tPA candidate due to timing of symptoms even if this is an acute stroke which it may or may not be. CT and CTA negative. IV tPA not indicated due to timing and last known well began yesterday. Concerned patient could be having a posterior central process. I did order her some blood pressure medication hydralazine in addition to Tylenol because of her headache, which started to gradually worsen prior to her getting these medications. She is otherwise stable and plan is for admission. Lab Data Attestation: I reviewed the patient's lab results. Labs: Laboratory Results - last 24 hr 04/29/22 04/29/22 04/29/22 16:50 16:50 16:50 WBC 12.0 H RBC 4.70 Hgb 13.5 Hct 40.7 MCV 86.6 MCH 28.7 MCHC 33.2 RDW Std Deviation 39.6 RDW Coeff of Jovani 12.5 Plt Count 334 MPV 11.0 Immature Gran % (Auto) 0.400 Neut % (Auto) 73.3 H Lymph % (Auto) 15.0 L Loving % (Auto) 7.3 Eos % (Auto) 3.4 Baso % (Auto) 0.6 Absolute Neuts (auto) 8.8 H Absolute Lymphs (auto) 1.80 Nucleated RBC % 0 PT 13.1 INR 1.0 APTT 29.0 Sodium 139 Potassium 3.5 Chloride 107 Carbon Dioxide 28.0 Anion Gap 4 L BUN 29 H Creatinine 1.52 H Estim Creat Clear Calc 33.85 Est GFR (MDRD) Af Amer 46 L Est GFR (MDRD) Non-Af 38 L BUN/Creatinine Ratio 19.1 Glucose 107 H Calcium 9.8 Troponin I High Sens 11 POC Glucose 04/29/22 16:57 WBC RBC Hgb Hct MCV MCH MCHC RDW Std Deviation RDW Coeff of Jovani Plt Count MPV Immature Gran % (Auto) Neut % (Auto) Lymph % (Auto) Loving % (Auto) Eos % (Auto) Baso % (Auto) Absolute Neuts (auto) Absolute Lymphs (auto) Nucleated RBC % PT INR APTT Sodium Potassium Chloride Carbon Dioxide Anion Gap BUN Creatinine Estim Creat Clear Calc Est GFR (MDRD) Af Amer Est GFR (MDRD) Non-Af BUN/Creatinine Ratio Glucose Calcium Troponin I High Sens POC Glucose 102 Radiography Diagnostic Testing: Clinical Impression(s) from Imaging Studies Brain CT 04/29/22 16:41 IMPRESSION: 1. No acute intracranial abnormality. There has been no significant change from the reference examination. 2. Stable underlying small vessel ischemia. 3. Chronic right maxillary sinusitis. 4. Aspects score 10. Electronically Signed: Tonio Smiley MD at 17:01 EST , ADDENDUM: 04/29/22 1710 IMPRESSION: 1. No acute intracranial abnormality. There has been no significant change from the reference examination. 2. Stable underlying small vessel ischemia. 3. Chronic right maxillary sinusitis. 4. Aspects score 10. N.B. : The above Results were Read Back by Tonio Smiley MD to José Miguel Casanova MD, and understanding confirmed on 04/29/2022 17:03:22 (ET). Electronically Signed: Tonio Smiley MD at 17:01 EST , Head/Neck CTA 04/29/22 16:41 IMPRESSION: No acute findings in the arteries of the head and neck. Electronically Signed: Tonio Smiley MD at 17:10 EST , ADDENDUM: 04/29/22 1721 IMPRESSION: No acute findings in the arteries of the head and neck. N.B. : The above Results were Read Back by Tonio Smiley MD to José Miguel Casanova MD, and understanding confirmed on 04/29/2022 17:14:26 (ET). Electronically Signed: Tonio Smiley MD at 17:10 EST , Chest X-Ray 04/29/22 17:14 IMPRESSION: There are no acute findings. Healing fracture of the right proximal humerus. Electronically Signed: Juanito Song MD at 17:38 EST , Rhythm Strip Rhythm Strip: Sinus Rhythm Rate: 70 Ectopy: None EKG Initial EKG: Attestation: I personally reviewed and interpreted this EKG as follows: Interpretation: Sinus Rhythm and No Acute Injury Pattern Prior EKG tracings: available for review Prior: Unchanged Stroke Documentation Questions Stroke Team Activated: Yes Was Patient considered for Endovascular Intervention?: No-CTA negative, determined not to be an endovascular candidate IV Alteplase (t-PA) Administered: No (Timing see above) Critical Care Time Critical Care Time: Yes Critical care time (excluding procedures): 30-74 minutes (35 min), Including time spent:, Discussing w/Patient &/or Family/Consumer Affairs Specialist, Discussing w/Consultants, Arranging Admission or Transfer and Performing Direct Patient Care at Bedside Discharge Plan Triage Chief Complaint: Eye Problem Other Complaint: Headache ED Provider: José Miguel Casanova Dx/Rx/DC Orders Clinical Impression: Vertigo, central, Accelerated hypertension, Ataxia, Headache, Noncompliance with medications Prescriptions: No Action NK Primary Care Provider: Desean Bonilla Referrals: Desean Bonilla MD [Primary Care Provider] - Disposition Disposition: Acute Care Hospital [facility] [place] NIHSS NIHSS 1a. Level of Consciousness: Alert; keenly responsive 1b. LOC Questions: Answers neither question correctly. 1c. LOC Commands: Performs both tasks correctly. 2. Best Gaze: Normal 3. Visual: No visual loss 4. Facial Palsy: Minor paralysis (flattened nasolabial fold, asymmetry on smiling) (L) 5a. Left Arm: No drift; arm holds 90 (or 45) degrees for full 10 seconds 5b. Right Arm: No drift; arm holds 90 (or 45) degrees for full 10 seconds (Unable to test due to humerus fracture and arm in sling) 6a. Left Leg: Some effort against gravity; 6b. Right Leg: No drift; leg holds 30-degree position for full 5 seconds 7. Limb Ataxia: Present in 1 limb (LUE) 8. Sensory: Normal; no sensory loss 9. Best Language: No aphasia; normal 10. Dysarthria: Normal 11. Extinction and Inattention: No abnormality Total: 6 Stroke Questions Stroke Team Activated: Yes IV TPA Administered: No (Timing see above)
[2022-04-29 16:56] VITALS: O2SAT 98
[2022-04-29 16:57] VITALS: BP 235/116; PULSE 70; RESP 12; TEMP 36.2; O2SAT 97
[2022-04-29 17:01] LABS: Absolute Neutrophil Count 8.8 X10^3/uL (2.0-7.7); Basophil# 0.07 X10^3/uL; Basophil% 0.6 % (0-1); Eosinophil# 0.41 X10^3/uL; Eosinophils% 3.4 % (0-5); Hematocrit 40.7 % (37-47); Hemoglobin 13.5 g/dL (12.0-15.0); Mean Corp Hgb Conc 33.2 g/dL (32-36); Mean Corpuscular Hgb 28.7 pg (27.0-32.0); Mean Corpuscular Volume 86.6 fL (81-99); Monocyte# 0.88 X10^3/uL; Monocyte% 7.3 % (0-10); NRBC Flagged by Analyzer 0 % (0-5); Neutrophil # 8.83 X10^3/uL (2.7-7.7); Neutrophil % 73.3 % (47-70); Platelet Count 334 K/mm3 (150-450); RBC Distribution Width CV 12.5 % (11.6-14.6); RBC Distribution Width SD 39.6 fl (35.1-43.9)
--- NOTE | 2022-04-29 17:03 | ED.RN ---
Addendum entered by Ade Owens 04/29/22 17:05: NIH assessments can be canceled per Dr. Casanova Original Note: Per Dr. casanova-cancel stroke alert
[2022-04-29 17:07] VITALS: BP 209/109; PULSE 76; RESP 17; O2SAT 99
--- NOTE | 2022-04-29 17:14 | RAD_ITS ---
STUDY: X-RAY CHEST REASON FOR EXAM: Female, 51 years old. CHEST PAIN Neuro deficit, acute, stroke suspected TECHNIQUE: XR Chest 1 View COMPARISON: None FINDINGS: There is no demonstrated pleural abnormality. Healing fracture of the right proximal humerus. Normal size heart. Normal mediastinum and shima. Normal visualized pulmonary arteries. Normal visualized aortic arch and descending thoracic aorta. Normal visualized thoracic spine. Normal visualized ribs, clavicles, and shoulders. There is no demonstrated abnormality of the visualized soft tissue structures of the upper abdomen. RAD/Chest 1 View IMPRESSION: There are no acute findings. Healing fracture of the right proximal humerus. Electronically Signed: Juanito Song MD at 17:38 EST ,
[2022-04-29 17:17] VITALS: BP 171/119; PULSE 66; RESP 18; O2SAT 99
[2022-04-29 17:18] LABS: Anion Gap 4 (5-15); BUN 29 mg/dL (7-18); BUN/Creat Ratio 19.1 RATIO (10-20); Calcium,Total 9.8 mg/dL (8.5-10.1); Chloride 107 mmol/L (98-107); Creatinine, Serum 1.52 mg/dL (0.55-1.02); EST Glomerular Filtration Rate 38 mL/min (>60); Est Glom Filt Rate - Afr Amer 46 mL/min (>60); Estimated Creatinine Clearance 33.85 ml/min; Glucose 107 mg/dL (74-106); Potassium 3.5 mmol/L (3.5-5.1); Sodium Level 139 mmol/L (136-145); Troponin-I HS 11 pg/mL (3.0-54.0)
[2022-04-29 17:20] LABS: Bedside Glucose 102 mg/dL (74-106)
[2022-04-29] MEDS: hydrALAZINE 20 MG/ML Vial 10 MG IV (17:21)
[2022-04-29 17:26] LABS: Prothrombin Time (Protime)PT. 13.1 SECONDS (11.7-14.9)
[2022-04-29 17:35] VITALS: BP 187/101; PULSE 75; RESP 20; O2SAT 94
--- NOTE | 2022-04-29 17:56 | ED.RN ---
pt calls out screamingyou fucking assholes, my head hurts This rn back to room to take bp. Pt refuses stating make the fucking beeping stop. dr casillas aware of pt requests. Will re-evaluate pt
--- NOTE | 2022-04-29 18:18 | NURSING ---
DR HYDE FOR DR GRAHAM
--- NOTE | 2022-04-29 18:41 | ED.RN ---
Dr. Pineda in room with patient attempting to asses. Pt. uncooperative, will not respond to any of 's questions. When asked if patient was suicidal or homicidal pt. did not respond. Dr. Pineda raised patients head of the bed up and pt. responded with my arm is broken you fucking idiot. This RN told patient that the way she was speaking to staff was completely inappropriate and would not be tolerated. Pt. confirmed with this RN and Bronwyn Tatum RN that she was not suicidal or homicidal and she was being rude because her head hurt. Patient then reminded that she would need to act appropriately and cooperate with care if she wanted to be properly evaluated. pt. stated get me out of this place I am leaving I do not need this. Dr. pineda explained the risks of leaving. Dr. Casanova notified. IV line removed.
--- NOTE | 2022-04-29 18:45 | PCM.CONS.GEN ---
Assessment & Plan Assessment/Plan (1) Migraine: PLAN: May be related with her blood pressure as patient ran out of blood pressure medications about a month ago. Patient's refusing to comply with just very simple commands such as putting her arm down when asked and answering some very simple questions. Patient was going to leave AGAINST MEDICAL ADVICE. We told her that we cannot rule out stroke or other processes contributing to her symptoms and advised her to stay. Patient wished to leave AGAINST MEDICAL ADVICE. Patient did this in front of myself as well as with 2 additional nurses present in the room. Patient also denied any suicidal or homicidal ideation. This again was not present to me as well as to other emergency room nurses. (2) Accelerated hypertension: PLAN: Due to noncompliance with medications but may also be exacerbated due to headache. Patient needs follow-up with her primary care physician for further antihypertensive management. (3) Ataxia: PLAN: That was on the emergency room physician for evaluation. Patient was not willing to participate in a physical exam with me but the little I saw I did not see any clear or obvious ataxia with with her left arm or leg but once again that was a very limited examination as patient would not permit a more formal neurologic much less any kind of basic physical examination. I am left to wonder if this is intentional the ataxia that she demonstrated with the emergency room physicians such as just a lack of true effort. Though it would be best for the patient to be evaluated for stroke or other potential reversible causes if if this legitimately is an organic issue. HPI Consult Data Date of Consult: 04/29/22 HPI Narrative Reason for Consultation: Left-sided weakness, blurred vision and ataxia. HPI Narrative: ZEKE RAY, is a 51 F who presents with headache, blurred vision, left-sided weakness and ataxia. Patient is a very difficult historian due to the fact that she does not want to volunteer any information other than complaining that she has a headache. But was called by the emergency room physician because patient blood pressure was elevated at 235/116. Patient is complaining of right-sided headache and was having left-sided weakness and ataxia. The concern is the patient potentially having a posterior circulation stroke. She did undergo a CTA of her head neck in the emergency room which was negative. But with her ongoing symptoms the hospital service was contacted. When I went to see the patient, the patient was silent with her arm draped over her head planing of a headache and that keeping her hand over her head helped her headache and would not move her arm when I requested to examine her. However, a phone call came in the patient, with her left hand, answered it and then was able to hang it up. She placed her phone back on her lap and then draped her arm across her forehead. Refusing to interact further with me. PFSH Medical History CVA (cerebral vascular accident) Hepatitis B Hidradenitis suppurativa Hypertension Left axillary hidradenitis Tobacco use Home Medications NK 04/29/22 [History Last Taken Unknown] Allergy/AdvReac Type Severity Reaction Status Date / Time Penicillins Allergy Hives Verified 04/29/22 16:36 Family History Mother CVA (cerebral vascular accident) CAD (coronary artery disease) Hypertension Heart disease Myocardial infarction Father CAD (coronary artery disease) Heart disease Hypertension Myocardial infarction Surgical History H/O umbilical hernia repair History of bilateral tubal ligation History of eye surgery Hx of cataract surgery S/P lens implant Status post glaucoma surgery Status post tonsillectomy and adenoidectomy Social History household members: none Smoking Status: Current every day smoker tobacco type: cigarettes how long ago did patient quit smoking: Patient reports 1/2 ppd cigarette tobacco use since teen. alcohol intake: never substance use type: does not use ROS ROS Narrative Limited due to the fact the patient would not volunteer any information other than that she had a headache. Physical Exam Const Constitutional Narrative: Appears older than stated age. Limited exam overall as the patient was very confrontational and verbally abusive and then stated that she was leaving AGAINST MEDICAL ADVICE. HEENT normocephalic Eyes Eyes Narrative: No icterus. Extremity normal to inspection and no clubbing, cyanosis or edema Extremity Narrative: Right arm in a sling Neuro Neuro Narrative: Patient was able to move her left arm to answer her phone without any difficulties or ataxia. Attempting to do a very modified Babinski patient was able to withdraw her whole left leg very quickly. Sensorium / Orientation: awake and alert Speech: speech normal Psych Negative for affect normal Lab / Micro Data Result Diagrams: 04/29/22 16:50 04/29/22 16:50 Labs: Laboratory Results - last 24 hr 04/29/22 16:50: WBC 12.0 H, RBC 4.70, Hgb 13.5, Hct 40.7, MCV 86.6, MCH 28.7, MCHC 33.2, RDW Std Deviation 39.6, RDW Coeff of Jovani 12.5, Plt Count 334, MPV 11.0, Immature Gran % (Auto) 0.400, Neut % (Auto) 73.3 H, Lymph % (Auto) 15.0 L, [place] % (Auto) 7.3, Eos % (Auto) 3.4, Baso % (Auto) 0.6, Absolute Neuts (auto) 8.8 H, Absolute Lymphs (auto) 1.80, Nucleated RBC % 0 04/29/22 16:50: PT 13.1, INR 1.0, APTT 29.0 04/29/22 16:50: Sodium 139, Potassium 3.5, Chloride 107, Carbon Dioxide 28.0, Anion Gap 4 L, BUN 29 H, Creatinine 1.52 H, Estim Creat Clear Calc 33.85, Est GFR (MDRD) Af Amer 46 L, Est GFR (MDRD) Non-Af 38 L, BUN/Creatinine Ratio 19.1, Glucose 107 H, Calcium 9.8, Troponin I High Sens 11 04/29/22 16:57: POC Glucose 102 Rhythm Strip Rhythm Strip: Sinus Rhythm Rate: 70 Ectopy: None Radiology Impression Brain CT 04/29/22 16:41 IMPRESSION: 1. No acute intracranial abnormality. There has been no significant change from the reference examination. 2. Stable underlying small vessel ischemia. 3. Chronic right maxillary sinusitis. 4. Aspects score 10. Electronically Signed: Tonio Smiley MD at 17:01 EST , ADDENDUM: 04/29/22 9030 IMPRESSION: 1. No acute intracranial abnormality. There has been no significant change from the reference examination. 2. Stable underlying small vessel ischemia. 3. Chronic right maxillary sinusitis. 4. Aspects score 10. N.B. : The above Results were Read Back by Tonio Smiley MD to José Miguel Casanova MD, and understanding confirmed on 04/29/2022 17:03:22 (ET). Electronically Signed: Tonio Smiley MD at 17:01 EST , Head/Neck CTA 04/29/22 16:41 IMPRESSION: No acute findings in the arteries of the head and neck. Electronically Signed: Tonio Smiley MD at 17:10 EST , ADDENDUM: 04/29/22 1721 IMPRESSION: No acute findings in the arteries of the head and neck. N.B. : The above Results were Read Back by Tonio Smiley MD to José Miguel Casanova MD, and understanding confirmed on 04/29/2022 17:14:26 (ET). Electronically Signed: Tonio Smiley MD at 17:10 EST , Chest X-Ray 04/29/22 17:14 IMPRESSION: There are no acute findings. Healing fracture of the right proximal humerus. Electronically Signed: Juanito Song MD at 17:38 EST , Charges/Coding Visit Charges Office Visits / Consults: [id number] OP Consult L3
== END 2022-04-29 18:58 | disposition left against medical advice (07) ==
PROVIDERS: Emergency Provider Emergency Medicine; PCP Family Medicine; Visit Provider Emergency Medicine
DX: R42 Dizziness and giddiness (principal); I10 Essential (primary) hypertension; R51.9 Headache, unspecified; Z91.14 Patient's other noncompliance with medication regimen; F17.210 Nicotine dependence, cigarettes, uncomplicated
CPT/HCPCS: 70450; 70496; 70498; 71045; 80048; 82962; 84484; 85025; 85610; 85730; 93005; 96374; 99285; Q9967; A4216

== ENCOUNTER 2022-07-02 16:49 | Inpatient (IN) | payer MEDICAID, SELFPAY ==
[2022-07-02] VITALS (7 sets, daily range): BP systolic 162–228; BP diastolic 77–117; PULSE 71–97; RESP 14–24; TEMP 35.7–36.6; O2SAT 96–99; BMI 28.3; BMI 26.1
--- NOTE | 2022-07-02 17:33 | CT_ITS ---
STUDY: CT BRAIN WITHOUT CONTRAST REASON FOR EXAM: Female, 52 years old. Confusion RADIATION DOSAGE (If Supplied By Facility): CTDIvol = ( 44.99 ) mGy, DLP = ( 779.24 ) mGycm TECHNIQUE: Transaxial CT imaging of the brain was performed without administration of intravenous contrast material. Individualized dose optimization techniques were used for this CT. COMPARISON: April 29, 2022 FINDINGS: Normal soft tissue structures. Normal calvarium. Normal size ventricles and extra-axial spaces for the patient''s age. There are areas of decreased attenuation within the white matter tracts of the supratentorial brain, consistent with microvascular disease changes. There is right occipital volume loss and encephalomalacia. There are lacunar infarcts of the lateral basal ganglia and thalami. Normal brainstem. Normal cerebellum. There is no intracranial hemorrhage. There are no findings of an acute ischemic infarction. There is moderate mucosal thickening of the paranasal sinuses. CT/Brain/Head without Contrast IMPRESSION: Chronic involutional changes of the brain. Right occipital infarct has occurred since the prior exam. Electronically Signed: José Miguel Mehta MD at 19:57 EST ,
--- NOTE | 2022-07-02 17:37 | EKG12_ITS ---
Test Reason : ALT LOC Blood Pressure : / mmHG Vent. Rate : 084 BPM Atrial Rate : 084 BPM P-R Int : 152 ms QRS Dur : 072 ms QT Int : 404 ms P-R-T Axes : 076 024 061 degrees QTc Int : 477 ms Normal sinus rhythm Normal ECG Confirmed by JANIE GREEN, WINSTON ([id number]), script editor CONNOR CAR ([id number]) on 07/07/2022 9:23:55 AM Referred By: Confirmed By:WINSTON LIMA MD
--- NOTE | 2022-07-02 17:37 | EX.ED.DYSGE1 ---
HPI History of Present Illness Chief Complaint: Alt LOC Narrative Narrative: Patient presents with confusion. She has not been seen by family members for days to weeks, she stumbled into a friend's store, and she was confused. She was brought to the emergency department. Her brother recently , she has been quite sad and has not been taking her medications including her antihypertensives. She also has a history of drug abuse, her friend thinks her altered status is somewhat different than her usual drug abuse but she is not completely sure. Patient knows the month, she knows how old it she is, she is not off balance, she has no weakness or paresthesias she is confused about some of the events. PFSH PFSH Medical History CVA (cerebral vascular accident) Hepatitis B Hidradenitis suppurativa Hypertension Left axillary hidradenitis Tobacco use Home Medications aspirin 81 mg chewable tablet 81 mg PO DAILY 07/02/22 [History Last Taken Unknown] atorvastatin 80 mg tablet 80 mg PO QHS 07/02/22 [History Last Taken Unknown] hydrochlorothiazide 25 mg tablet 25 mg PO DAILY 07/02/22 [History Last Taken Unknown] lisinopril 20 mg tablet 20 mg PO DAILY 07/02/22 [History Last Taken Unknown] metoprolol succinate 50 mg tablet,extended release 24 hr 50 mg PO DAILY 07/02/22 [History Last Taken Unknown] Allergy/AdvReac Type Severity Reaction Status Date / Time Penicillins Allergy Hives Verified 07/02/22 16:50 Family History Mother CVA (cerebral vascular accident) CAD (coronary artery disease) Hypertension Heart disease Myocardial infarction Father CAD (coronary artery disease) Heart disease Hypertension Myocardial infarction Surgical History H/O umbilical hernia repair History of bilateral tubal ligation History of eye surgery Hx of cataract surgery S/P lens implant Status post glaucoma surgery Status post tonsillectomy and adenoidectomy Social History household members: none Smoking Status: Current every day smoker tobacco type: cigarettes how long ago did patient quit smoking: Patient reports 1/2 ppd cigarette tobacco use since teen. alcohol intake: never substance use type: does not use ROS ROS ED ROS Narrative Past medical history: Reviewed Medications: Reviewed Social history: As in HPI Review of systems: Difficult to obtain secondary to confusion EXAM Physical Exam Narrative Exam Narrative: Physical exam General: Patient does not appear in distress she does not appear ill. She does take time to process my questions but she answers some relatively well Head: Normocephalic, Atraumatic Eyes: Conjunctiva not pale ENT: Slightly dry mucous membranes Neck: Supple, Nontender, No lymphadenopathy Cardiovascular: Regular rate, Regular rhythm Respiratory: No distress, CTA bilaterally Abdomen: Soft, Nontender, Nondistended Back: Nontender, Normal Inspection. Negative for: CVA tenderness Extremities: Nontender, No edema Skin: Normal color, No rash Neurological: Alert, oriented to person and place, she knows the month but does not know the year. Normal Strength, Normal Sensation. Normal cerebellar. Psychological: Normal affect Const Vital Signs: 07/02/22 16:50 07/02/22 16:49 07/02/22 18:49 Temperature 96.3 F L Temperature Source Temporal Pulse Rate 97 78 74 Respiratory Rate 17 24 H 14 Blood Pressure 228/105 H 216/117 H 171/109 H Blood Pressure Mean 146 150 129 Pulse Ox 99 97 96 Oxygen Delivery Method Room Air Room Air Room Air 07/02/22 19:35 Temperature Temperature Source Pulse Rate 77 Respiratory Rate 18 Blood Pressure 172/92 H Blood Pressure Mean 118 Pulse Ox 98 Oxygen Delivery Method Room Air MDM MDM MDM Narrative Medical decision making narrative: Patient work-up is consistent with a stroke which is likely subacute. She had quite a bit of hypertension initially and was treated. Because the symptoms may be new I will allow some permissive hypertension. I will admit her. A. Problems addressed ( does not have to be diagnoses) Confusion Encephalopathy Stroke B. Amount and/or complexity of the data (2 out of 3) 1. Any 3 Blood work including CBC CMP were read by me and unremarkable I discussed the patient with family and friend as in HPI 2. Independent interpretation of test Telemetry: Sinus rhythm with a rate in the 70s no ectopy. 3. I discussed the patient with hospitalist for admission. C. Risk of complications and/or morbidity Differential diagnosis: Drugs or alcohol since she has had history of this, however this is unfounded. I also thought of stroke and this is likely the cause of her symptoms. I thought about infectious etiology but she has a normal white count and no fever. Because of her significant hypertension 2 doses of labetalol were ordered. I will call the hospitalist for admission. Lab Data Labs: Laboratory Results - last 24 hr 07/02/22 07/02/22 07/02/22 17:40 18:57 18:57 WBC Cancelled Corrected WBC Cancelled RBC Cancelled Hgb Cancelled Hct Cancelled MCV Cancelled MCH Cancelled MCHC Cancelled RDW Std Deviation Cancelled RDW Coeff of Jovani Cancelled Plt Count Cancelled MPV Cancelled Immature Gran % (Auto) Cancelled Neut % (Auto) Cancelled Lymph % (Auto) Cancelled [place] % (Auto) Cancelled Eos % (Auto) Cancelled Baso % (Auto) Cancelled Absolute Neuts (auto) Cancelled Absolute Lymphs (auto) Cancelled Total Counted Cancelled Neutrophils % (Manual) Cancelled Band Neutrophils % Cancelled Lymphocytes % (Manual) Cancelled Monocytes % (Manual) Cancelled Eosinophils % (Manual) Cancelled Basophils % (Manual) Cancelled Metamyelocytes % Cancelled Myelocytes % Cancelled Promyelocytes % Cancelled Blast Cells % Cancelled Plasma Cell % (Manual) Cancelled Other Cells % Cancelled Nucleated RBC % Cancelled Nucleated RBCs/100 WBC Cancelled Differential Comment Cancelled Diff Path Review Cancelled Hypersegmented Neuts Cancelled Atypical Lymphocytes Cancelled Reactive Lymphocytes Cancelled Smudge Cells Cancelled Toxic Granulation Cancelled Toxic Vacuolation Cancelled Dohle Bodies Cancelled Inocencia Rods Cancelled Platelet Estimate Cancelled Plt Morphology Comment Cancelled RBC Morphology Cancelled Polychromasia Cancelled Hypochromasia Cancelled Poikilocytosis Cancelled Basophilic Stippling Cancelled Anisocytosis Cancelled Microcytosis Cancelled Macrocytosis Cancelled Spherocytes Cancelled Sickle Cells Cancelled Target Cells Cancelled Tear Drop Cells Cancelled Ovalocytes Cancelled Stomatocytes Cancelled [place] Bodies Cancelled Oxford Cells Cancelled Bite Cells Cancelled Crenated Cell Cancelled Acanthocytes (Spur) Cancelled Rouleaux Cancelled Schistocytes Cancelled Sodium Cancelled Potassium Cancelled Chloride Cancelled Carbon Dioxide Cancelled Anion Gap Cancelled BUN Cancelled Creatinine Cancelled Estim Creat Clear Calc Cancelled Est GFR (MDRD) Af Amer Cancelled Est GFR (MDRD) Non-Af Cancelled BUN/Creatinine Ratio Cancelled Glucose Cancelled Calcium Cancelled Total Bilirubin Cancelled AST Cancelled ALT Cancelled Alkaline Phosphatase Cancelled Troponin I High Sens Cancelled Total Protein Cancelled Albumin Cancelled Globulin Cancelled Albumin/Globulin Ratio Cancelled Ur Drug Screen Comment Ethyl Alcohol POC Glucose 105 07/02/22 07/02/22 07/02/22 18:57 19:55 19:57 WBC 11.9 H Corrected WBC RBC 4.51 Hgb 12.8 Hct 38.8 MCV 86.0 MCH 28.4 MCHC 33.0 RDW Std Deviation 39.5 RDW Coeff of Jovani 12.5 Plt Count 294 MPV 11.2 Immature Gran % (Auto) 0.300 Neut % (Auto) 70.6 H Lymph % (Auto) 20.1 [place] % (Auto) 7.1 Eos % (Auto) 1.3 Baso % (Auto) 0.6 Absolute Neuts (auto) 8.4 H Absolute Lymphs (auto) 2.40 Total Counted Neutrophils % (Manual) Band Neutrophils % Lymphocytes % (Manual) Monocytes % (Manual) Eosinophils % (Manual) Basophils % (Manual) Metamyelocytes % Myelocytes % Promyelocytes % Blast Cells % Plasma Cell % (Manual) Other Cells % Nucleated RBC % 0 Nucleated RBCs/100 WBC Differential Comment Diff Path Review Hypersegmented Neuts Atypical Lymphocytes Reactive Lymphocytes Smudge Cells Toxic Granulation Toxic Vacuolation Dohle Bodies Inocencia Rods Platelet Estimate Plt Morphology Comment RBC Morphology Polychromasia Hypochromasia Poikilocytosis Basophilic Stippling Anisocytosis Microcytosis Macrocytosis Spherocytes Sickle Cells Target Cells Tear Drop Cells Ovalocytes Stomatocytes [place] Bodies [place] Cells Bite Cells Crenated Cell Acanthocytes (Spur) Rouleaux Schistocytes Sodium Potassium Chloride Carbon Dioxide Anion Gap BUN Creatinine Estim Creat Clear Calc Est GFR (MDRD) Af Amer Est GFR (MDRD) Non-Af BUN/Creatinine Ratio Glucose Calcium Total Bilirubin AST ALT Alkaline Phosphatase Troponin I High Sens Total Protein Albumin Globulin Albumin/Globulin Ratio Ur Drug Screen Comment Ethyl Alcohol Cancelled POC Glucose Radiography Diagnostic Testing: Clinical Impression(s) from Imaging Studies Brain CT 07/02/22 17:33 IMPRESSION: Chronic involutional changes of the brain. Right occipital infarct has occurred since the prior exam. Electronically Signed: José Miguel Mehta MD at 19:57 EST , Chest X-Ray 07/02/22 18:55 IMPRESSION: No acute cardiopulmonary disease. Electronically Signed: José Miguel Mehta MD at 19:33 EST , Chest x-ray read by me is normal. EKG Initial EKG: Comments: Him with rate of 84. Normal DC interval. QTC is slightly elevated at 477. No ischemic changes. Interpreted by emergency doctor. Critical Care Time Critical care time (excluding procedures): 30-74 minutes, Discussing w/Patient &/or Family/Communication Professor, Discussing w/Consultants, Arranging Admission or Transfer, Performing Direct Patient Care at Bedside and - (35 minutes) Discharge Plan Triage Chief Complaint: Alt LOC ED Provider: Ronnie Kenyon Dx/Rx/DC Orders Clinical Impression: Encephalopathy, Stroke, Hypertensive urgency Prescriptions: No Action atorvastatin 80 mg tablet 80 mg PO QHS Label Comments: TAKE 1 TABLET BY MOUTH EVERY DAY AT BEDTIME metoprolol succinate 50 mg tablet extended release 24 hr 50 mg PO DAILY Label Comments: TAKE 1 TABLET BY MOUTH EVERY DAY lisinopril 20 mg tablet 20 mg PO DAILY Label Comments: TAKE 1 TABLET BY MOUTH EVERY DAY aspirin 81 mg tablet,chewable 81 mg PO DAILY Label Comments: TAKE 1 TABLET BY MOUTH EVERY DAY hydrochlorothiazide 25 mg tablet 25 mg PO DAILY Label Comments: TAKE 1 TABLET BY MOUTH EVERY DAY Primary Care Provider: Desean Bonilla Referrals: Desean Bonilla MD [Primary Care Provider] - Disposition Disposition: Acute Care Hospital [facility] NIHSS NIHSS 1a. Level of Consciousness: Alert; keenly responsive 1b. LOC Questions: Answers BOTH questions correctly. 1c. LOC Commands: Performs both tasks correctly. 2. Best Gaze: Normal 3. Visual: No visual loss 4. Facial Palsy: Normal symmetrical movements 5a. Left Arm: No drift; arm holds 90 (or 45) degrees for full 10 seconds 5b. Right Arm: No drift; arm holds 90 (or 45) degrees for full 10 seconds 6a. Left Leg: No drift; leg holds 30-degree position for full 5 seconds 6b. Right Leg: No drift; leg holds 30-degree position for full 5 seconds 7. Limb Ataxia: Absent 8. Sensory: Normal; no sensory loss 9. Best Language: No aphasia; normal 10. Dysarthria: Normal 11. Extinction and Inattention: No abnormality Total: 0 Stroke Questions Stroke Team Activated: No
[2022-07-02 18:00] LABS: Bedside Glucose 105 mg/dL (74-106)
[2022-07-02] MEDS: Labetalol (Prefilled) 20 MG/4 ML 10 MG IV ×2 (18:32→19:33)
--- NOTE | 2022-07-02 18:55 | RAD_ITS ---
STUDY: X-RAY CHEST REASON FOR EXAM: Female, 52 years old. Weakness TECHNIQUE: Single AP portable view of the chest. COMPARISON: April 29, 2022. FINDINGS: The lungs are clear and expanded. There is no demonstrated pleural abnormality. Normal size heart. Normal mediastinum and shima. Normal visualized pulmonary arteries. Normal visualized aortic arch and descending thoracic aorta. Normal visualized thoracic spine. There is partial healing of right proximal humerus fracture. There is no demonstrated abnormality of the visualized soft tissue structures of the upper abdomen. RAD/Chest 1 View (Portable) IMPRESSION: No acute cardiopulmonary disease. Electronically Signed: José Miguel Mehta MD at 19:33 EST ,
[2022-07-02 20:00] LABS: Bacteria 0 SEEN /hpf (None Seen); Mucous, Urine 0 SEEN /hpf (<or=2+); Red Blood Cells-Urine 0 SEEN /hpf (0-5)
[2022-07-02 20:04] LABS: Absolute Neutrophil Count 8.4 X10^3/uL (2.0-7.7); Basophil# 0.07 X10^3/uL; Basophil% 0.6 % (0-1); Eosinophil# 0.16 X10^3/uL; Eosinophils% 1.3 % (0-5); Hematocrit 38.8 % (37-47); Hemoglobin 12.8 g/dL (12.0-15.0); Lymphocyte % 20.1 % (19-41); Mean Corpuscular Hgb 28.4 pg (27.0-32.0); Mean Platelet Vol. 11.2 fl (6.2-12.0); Monocyte# 0.85 X10^3/uL; Monocyte% 7.1 % (0-10); NRBC Flagged by Analyzer 0 % (0-5); Neutrophil # 8.42 X10^3/uL (2.7-7.7); Neutrophil % 70.6 % (47-70); Platelet Count 294 K/mm3 (150-450); RBC Distribution Width CV 12.5 % (11.6-14.6); RBC Distribution Width SD 39.5 fl (35.1-43.9); Red Blood Count 4.51 M/mm3 (4.2-5.4); White Blood Count 11.9 K/mm3 (4.4-11.0)
[2022-07-02 20:07] LABS: Color, Urine Yellow (Yellow); Glucose, Dipstick Normal (Normal); Ketone-Dipstick Negative (Negative); Leukocyte Esterase-Dipstick 500 /ul (Negative); Nitrite-Dipstick Negative (Negative); Occult Blood-Urine Negative /ul (Negative); Protein-Dipstick 15 mg/dl (Negative); Urine Bilirubin Dipstick Negative (Negative); Urine Clarity Clear (Clear); Urine Urobilinogen Normal (Normal)
--- NOTE | 2022-07-02 20:08 | NURSING ---
pt getting out of bed pulling off and getting tangled up in vital sign wires. Staff explained importance of using call light for assistance but again found pt wondering in hallway. Assisted to restroom and back to room. resting in bed call light within reach.
[2022-07-02 20:22] LABS: ALB/GLOB Ratio 0.9 RATIO (0.9-2.4); AST(SGOT) 13 U/L (15-37); Alanine Aminotransfer ALT/SGPT 21 U/L (13-56); Albumin, Serum 3.5 g/dL (3.2-5.0); Alkaline Phosphatase 41 U/L (45-117); Anion Gap 4 (5-15); BUN 22 mg/dL (7-18); Chloride 110 mmol/L (98-107); Creatinine, Serum 1.22 mg/dL (0.55-1.02); EST Glomerular Filtration Rate 49 mL/min (>60); Est Glom Filt Rate - Afr Amer 59 mL/min (>60); Estimated Creatinine Clearance 39.78 ml/min; Globulin 3.9 g/dL (2.2-4.2); Glucose 115 mg/dL (74-106); Potassium 3.4 mmol/L (3.5-5.1); Protein, Total 7.4 g/dL (6.4-8.2); Sodium Level 141 mmol/L (136-145); Troponin-I HS (w/2H Reflex) 16 pg/mL (3.0-54.0)
[2022-07-02 20:28] LABS: Amphetamine Urine VISTA POSITIVE (<1000 ng/mL); Barbiturate Urine VISTA NEGATIVE (< 200 ng/mL); Benzodiazepine Urine VISTA NEGATIVE (< 200 ng/mL); Cocaine Urine VISTA NEGATIVE (< 300 ng/mL); Ecstacy Urine VISTA POSITIVE (< 500 ng/mL); Methadone Urine VISTA NEGATIVE (< 300 ng/mL); PCP Urine VISTA NEGATIVE (< 25 ng/mL); THC Urine VISTA POSITIVE (< 50 ng/mL); Vista UDS pH Range 6
[2022-07-02 20:30] LABS: Alcohol, Blood (Medical)-Serum < 3.0 mg/dL
[2022-07-02 20:31] LABS: Squamous Epithelial Cells - UA 0-5 SEEN /hpf (5-10); White Blood Cells 0-5 SEEN /hpf (0-5)
--- NOTE | 2022-07-02 20:49 | HP.PCM.HOS_ITS ---
HPI - General General Date of Admission: 07/02/22 Date of Service: 07/02/22 Chief Complaint: altered mental status HPI Narrative ZEKE RAY, is a 52 F with a past medical history as outlined who presents via the ED on 07/02/2022 with a complaint of confusion. Apparently patient had recently lost her brother and had not been taking her medications as she was feeling sad from his . She had not been seen by family members for several days to weeks. Patient went to a friend's daughter today and she was found to be confused. According to patient she said she thought her friend was confused. She does not remember anything else more. She was brought into the ED. Patient did have a history of IV drug use though she denies and her friend thought that this confusion was different from how she usually acted when she used IV drugs and there was concern about something else going on with her so she was brought into the ED. At time of my review she was alert and oriented. She denied any fever, chills, headache, blurred vision, cough, chest pain, palpitations, dizziness, nausea vomiting or diarrhea. Review of symptoms otherwise negative. She denied any numbness or tingling luminal droop or any blurred vision or any weakness in her arms or legs. Vitals in the ED where pulse rate of 77 with respiratory rate of 18 and blood pressure 172/92. She was saturating at 98% on room air. CBC was significant for WBC of 11.9 but was otherwise within normal limits. Chemistry showed potassium of 3.4 with creatinine of 1.22. Initial troponin was 16. Urinalysis showed leukocyte esterase of 500 but no WBC or bacteria. Urine tox was positive for amphetamines and MDMA as well as cannabinoids. Serum alcohol level was less than 3. Chest x-ray showed no acute cardiopulmonary process and CT of the brain showed chronic lacunar infarcts of the lateral basal ganglia and thalami. Age of the infarct was unclear. She has been admitted to be managed for acute metabolic encephalopathy thought to be due to stroke. It is unclear whether the stroke is acute or subacute. [facility] Medical History CVA (cerebral vascular accident) Hepatitis B Hidradenitis suppurativa Hypertension Left axillary hidradenitis Tobacco use Home Medications aspirin 81 mg chewable tablet 81 mg PO DAILY 07/02/22 [History Last Taken Unknown] atorvastatin 80 mg tablet 80 mg PO QHS 07/02/22 [History Last Taken Unknown] hydrochlorothiazide 25 mg tablet 25 mg PO DAILY 07/02/22 [History Last Taken Unknown] lisinopril 20 mg tablet 20 mg PO DAILY 07/02/22 [History Last Taken Unknown] metoprolol succinate 50 mg tablet,extended release 24 hr 50 mg PO DAILY 07/02/22 [History Last Taken Unknown] Allergy/AdvReac Type Severity Reaction Status Date / Time Penicillins Allergy Hives Verified 07/02/22 16:50 Family History Mother CVA (cerebral vascular accident) CAD (coronary artery disease) Hypertension Heart disease Myocardial infarction Father CAD (coronary artery disease) Heart disease Hypertension Myocardial infarction Surgical History H/O umbilical hernia repair History of bilateral tubal ligation History of eye surgery Hx of cataract surgery S/P lens implant Status post glaucoma surgery Status post tonsillectomy and adenoidectomy Social History household members: none Smoking Status: Current every day smoker tobacco type: cigarettes how long ago did patient quit smoking: Patient reports 1/2 ppd cigarette tobacco use since teen. alcohol intake: never substance use type: does not use ROS Constitutional Constitutional: Reports malaise; Denies anorexia, chills, fatigue, fever(s) or weakness Eyes Eyes: Denies blurry vision, change in vision or loss of vision ENT HEENT: Denies dysphagia, headache(s) or sore throat Cardiovascular Cardiovascular: Denies chest pain, dyspnea on exertion, edema, lightheadedness, orthopnea, palpitations, rapid heart rate or syncope Respiratory/Chest Respiratory/Chest: Denies cough, productive cough or shortness of breath at rest Gastrointestinal Gastrointestinal: Denies abdominal pain, diarrhea, nausea or vomiting Genitourinary Genitourinary: Denies burning urination, dysuria or urinary frequency Musculoskeletal Musculoskeletal: Denies arthralgias or joint pain Neurologic Neurologic: Denies confusion, dizziness, focal weakness, headache(s), numbness, paresthesias or seizures Psychiatric Psychiatric: Denies anxiety or depression Endocrine Endocrinology: Denies change in body appearance Hematologic/Lymphatic Hematologic/Lymphatic: Denies anemia Vital Signs Vital Signs Vital Signs: 07/02/22 16:50 07/02/22 16:49 07/02/22 18:49 Temperature 96.3 F L Temperature Source Temporal Pulse Rate 97 78 74 Respiratory Rate 17 24 H 14 Blood Pressure 228/105 H 216/117 H 171/109 H Blood Pressure Mean 146 150 129 Pulse Ox 99 97 96 Oxygen Delivery Method Room Air Room Air Room Air 07/02/22 19:35 07/02/22 20:39 Temperature 97.8 F Temperature Source Temporal Pulse Rate 77 71 Respiratory Rate 18 18 Blood Pressure 172/92 H 189/77 H Blood Pressure Mean 118 114 Pulse Ox 98 97 Oxygen Delivery Method Room Air Room Air Weight Weight: 150 lb Body Mass Index (BMI) 28.3 Physical Exam Const alert, oriented x3 and no apparent distress General Appearance: cooperative HEENT normocephalic, head/scalp atraumatic and hearing grossly normal bilaterally Mouth: oral and palatal mucosa normal Eyes PERRL, EOMs intact bilaterally and conjunctivae normal Neck no lymphadenopathy, supple and no JVD Resp normal respiratory effort, no retractions, no use of accessory muscles and clear to auscultation bilaterally Cardio regular rate, regular rhythm, S1 normal heart sound, S2 normal heart sound and no murmurs GI normal to inspection, nondistended, normoactive bowel sounds, soft to palpation and non-tender Extremity normal to inspection, full ROM and no clubbing, cyanosis or edema Neuro oriented x3, CN's II-XII intact bilaterally, moves all extremities and no focal motor deficits Sensorium / Orientation: awake and alert Speech: speech normal Motor Exam: strength 5/5 throughout Psych affect normal Results Lab / Micro Data Result Diagrams: 07/02/22 19:57 07/02/22 19:57 Labs: Laboratory Results - last 24 hr 07/02/22 17:40: POC Glucose 105 07/02/22 18:57: WBC Cancelled, Corrected WBC Cancelled, RBC Cancelled, Hgb Cancelled, Hct Cancelled, MCV Cancelled, MCH Cancelled, MCHC Cancelled, RDW Std Deviation Cancelled, RDW Coeff of Jovani Cancelled, Plt Count Cancelled, MPV Cancelled, Immature Gran % (Auto) Cancelled, Neut % (Auto) Cancelled, Lymph % (Auto) Cancelled, [place] % (Auto) Cancelled, Eos % (Auto) Cancelled, Baso % (Auto) Cancelled, Absolute Neuts (auto) Cancelled, Absolute Lymphs (auto) Cancelled, Total Counted Cancelled, Neutrophils % (Manual) Cancelled, Band Neutrophils % Cancelled, Lymphocytes % (Manual) Cancelled, Monocytes % (Manual) Cancelled, Eosinophils % (Manual) Cancelled, Basophils % (Manual) Cancelled, Metamyelocytes % Cancelled, Myelocytes % Cancelled, Promyelocytes % Cancelled, Blast Cells % Cancelled, Plasma Cell % (Manual) Cancelled, Other Cells % Cancelled, Nucleated RBC % Cancelled, Nucleated RBCs/100 WBC Cancelled, Differential Comment Cancelled, Diff Path Review Cancelled, Hypersegmented Neuts Cancelled, Atypical Lymphocytes Cancelled, Reactive Lymphocytes Cancelled, Smudge Cells Cancelled, Toxic Granulation Cancelled, Toxic Vacuolation Cancelled, Dohle Bodies Cancelled, Inocencia Rods Cancelled, Platelet Estimate Cancelled, Plt Morphology Comment Cancelled, RBC Morphology Cancelled, Polychromasia Cancelled, Hypochromasia Cancelled, Poikilocytosis Cancelled, Basophilic Stippling Cancelled, Anisocytosis Cancelled, Microcytosis Cancelled, Macrocytosis Cancelled, Spherocytes Cancelled, Sickle Cells Cancelled, Target Cells Cancelled, Tear Drop Cells Cancelled, Ovalocytes Cancelled, Stomatocytes Cancelled, [place] Bodies Cancelled, Jaycee Cells Cancelled, Bite Cells Cancelled, Crenated Cell Cancelled, Acanthocytes (Spur) Cancelled, Rouleaux Cancelled, Schistocytes Cancelled 07/02/22 18:57: Sodium Cancelled, Potassium Cancelled, Chloride Cancelled, Carbon Dioxide Cancelled, Anion Gap Cancelled, BUN Cancelled, Creatinine Cancelled, Estim Creat Clear Calc Cancelled, Est GFR (MDRD) Af Amer Cancelled, Est GFR (MDRD) Non-Af Cancelled, BUN/Creatinine Ratio Cancelled, Glucose Cancelled, Calcium Cancelled, Total Bilirubin Cancelled, AST Cancelled, ALT Cancelled, Alkaline Phosphatase Cancelled, Troponin I High Sens Cancelled, Total Protein Cancelled, Albumin Cancelled, Globulin Cancelled, Albumin/Globulin Ratio Cancelled 07/02/22 18:57: Ethyl Alcohol Cancelled 07/02/22 19:55: Urine Color Yellow, Urine Clarity Clear, Urine pH 6.0, Ur Specific [place] 1.020, Urine Protein 15 H, Urine Glucose (UA) Normal, Urine Ketones Negative, Urine Occult Blood Negative, Urine Nitrite Negative, Urine Bilirubin Negative, Urine Urobilinogen Normal, Ur Leukocyte Esterase 500 H, Urine RBC 0 SEEN, Urine WBC 0-5 SEEN, Ur Squamous Epith Cells 0-5 SEEN, Urine Bacteria 0 SEEN, Urine Mucus 0 SEEN 07/02/22 19:55: Urine Opiates Screen NEGATIVE, Urine Methadone Screen NEGATIVE, Ur Barbiturates Screen NEGATIVE, Ur Phencyclidine Scrn NEGATIVE, Ur Amphetamines Screen POSITIVE H, MDMA (Ecstasy) Screen POSITIVE H, U Benzodiazepines Scrn NEGATIVE, Urine Cocaine Screen NEGATIVE, U Cannabinoids Screen POSITIVE H, Ur Drug Screen Comment 07/02/22 19:57: Sodium 141, Potassium 3.4 L, Chloride 110 H, Carbon Dioxide 27.0, Anion Gap 4 L, BUN 22 H, Creatinine 1.22 H, Estim Creat Clear Calc 39.78, Est GFR (MDRD) Af Amer 59 L, Est GFR (MDRD) Non-Af 49 L, BUN/Creatinine Ratio 18.0, Glucose 115 H, Calcium 9.0, Total Bilirubin 0.30, AST 13 L, ALT 21, Alkaline Phosphatase 41 L, Troponin I High Sens 16, Total Protein 7.4, Albumin 3.5, Globulin 3.9, Albumin/Globulin Ratio 0.9 07/02/22 19:57: Ethyl Alcohol < 3.0 07/02/22 19:57: WBC 11.9 H, RBC 4.51, Hgb 12.8, Hct 38.8, MCV 86.0, MCH 28.4, MCHC 33.0, RDW Std Deviation 39.5, RDW Coeff of Jovani 12.5, Plt Count 294, MPV 11.2, Immature Gran % (Auto) 0.300, Neut % (Auto) 70.6 H, Lymph % (Auto) 20.1, Sam[place] % (Auto) 7.1, Eos % (Auto) 1.3, Baso % (Auto) 0.6, Absolute Neuts (auto) 8.4 H, Absolute Lymphs (auto) 2.40, Nucleated RBC % 0 Micro: Microbiology 07/02/22 17:51 Nasal Secretion SARS-CoV-2 Antigen (Rapid) - Final Radiology Impression Brain CT 07/02/22 17:33 IMPRESSION: Chronic involutional changes of the brain. Right occipital infarct has occurred since the prior exam. Electronically Signed: José Miguel Mehta MD at 19:57 EST , Chest X-Ray 07/02/22 18:55 IMPRESSION: No acute cardiopulmonary disease. Electronically Signed: José Miguel Mehta MD at 19:33 EST , Assessment & Plan Assessment/Plan (1) Encephalopathy: (2) Stroke: PLAN: Plan #Acute encephalopathy due to CVA * admit to PCU * went to friend's store quite confused. CT of the brain showed lacunar infarcts of the lateral basal ganglia and thalami; age of infarcts is unclear * on aspirin and high intensity statin; will continue * check A1C; for MRI of brain and MRA head and neck tomorrow * 2D echo ordered * PT/OT on board * hold BP meds to allow for permissive hypertension * IV labetalol prn to keep BP <220/120 * consult neurology once MRI and MRA results are in * #Hypertension * has not been taking her BP meds since her brother recently * hold BP meds to allow for permissive hypertension as above- usually on metoprolol, lisinopril and HCTZ * IV labetalol * #History of polysubstance abuse * patient denies this, but friend informed ED doctor she did use IV drugs * urine tox positive for amphetamines, MDMA and cannabinoids. * counseled to quit * DVT prophylaxis: lovenox Code status: full code * Patient counseled extensively about different types of CODE STATUS including full code, DNR CCA and DNR CCA. Patient elects to be full code. * Total [id number]-cgfk time 17 minutes. Charges/Coding Visit Charges Inpatient E&M: 18492 Init Hosp L3 Procedures Hospitalists Procedures: 55392 Advncd Care Plan 30 Min
--- NOTE | 2022-07-02 22:00 | NURSING ---
EMERGENCY DOCUMENTATION EFFECTIVE NOW, 07/02/2022, 2202
[2022-07-02 22:01] LABS: Reflex Troponin-HS? (from REC) Y
[2022-07-02] MEDS: Atorvastatin Calcium 80 MG Tablet PO (23:01)
[2022-07-02 23:48] LABS: Troponin-I HS 18 pg/mL (3.0-54.0)
[2022-07-03] VITALS (9 sets, daily range): BP systolic 123–167; BP diastolic 71–95; PULSE 64–80; RESP 16–18; TEMP 36.6–36.9; O2SAT 95–99; BMI 26.1
--- NOTE | 2022-07-03 00:07 | NURSING ---
This nurse taking over patient care at this time
[2022-07-03 02:32] LABS: Absolute Lymphocyte Count 2.44 X10^3/uL (0.83-4.51); Absolute Neutrophil Count 5.6 X10^3/uL (2.0-7.7); Basophil# 0.06 X10^3/uL; Basophil% 0.7 % (0-1); Eosinophil# 0.33 X10^3/uL; Eosinophils% 3.6 % (0-5); Hematocrit 38.2 % (37-47); Hemoglobin 12.4 g/dL (12.0-15.0); Lymphocyte # 2.44 X10^3/ul (0.83-4.51); Lymphocyte % 26.6 % (19-41); Mean Corp Hgb Conc 32.5 g/dL (32-36); Mean Corpuscular Hgb 28.1 pg (27.0-32.0); Mean Corpuscular Volume 86.6 fL (81-99); Mean Platelet Vol. 11.2 fl (6.2-12.0); Monocyte# 0.78 X10^3/uL; Monocyte% 8.5 % (0-10); NRBC Flagged by Analyzer 0 % (0-5); Neutrophil # 5.55 X10^3/uL (2.7-7.7); Neutrophil % 60.3 % (47-70); Platelet Count 296 K/mm3 (150-450); RBC Distribution Width CV 12.6 % (11.6-14.6); RBC Distribution Width SD 39.9 fl (35.1-43.9); Red Blood Count 4.41 M/mm3 (4.2-5.4); White Blood Count 9.2 K/mm3 (4.4-11.0)
[2022-07-03 02:51] LABS: Troponin-I HS 17 pg/mL (3.0-54.0)
[2022-07-03 02:54] LABS: Anion Gap 4 (5-15); BUN 20 mg/dL (7-18); BUN/Creat Ratio 17.2 RATIO (10-20); Chloride 111 mmol/L (98-107); Cholesterol 162 mg/dL (200); Creatinine, Serum 1.16 mg/dL (0.55-1.02); EST Glomerular Filtration Rate 52 mL/min (>60); Est Glom Filt Rate - Afr Amer 63 mL/min (>60); Estimated Creatinine Clearance 43.85 ml/min; Glucose 101 mg/dL (74-106); High Density Lipoprotein 57 mg/dL; Potassium 4.1 mmol/L (3.5-5.1); Sodium Level 141 mmol/L (136-145); Triglycerides 71 mg/dL; Very Low Density Lipoprotein 14 mg/dL (5-40)
--- NOTE | 2022-07-03 07:00 | ECHOD_ITS ---
Reason For Study: TIA/CVA Procedure This was a 2D Doppler, Color Flow transthoracic echocardiogram. Exam performed portable in patient room. Left Ventricle Normal LV size. Mild concentric left ventricular hypertrophy. Left ventricular systolic function is hyperdynamic. The estimated ejection fraction is 75 %. Stage 1 diastolic dysfunction. No regional wall motion abnormalities noted. Right Ventricle Normal RV size. Normal systolic function. Atria Normal left atrium. Normal right atrium. Mitral Valve Normal mitral valve. Tricuspid Valve Normal tricuspid valve. Aortic Valve Normal aortic valve. Pulmonic Valve Normal pulmonic valve. Great Vessels Normal aortic root. The pulmonary artery is normal size. Normal inferior vena cava. Pericardium/Pleural No pericardial effusion. MMode/2D Measurements & Calculations LVIDd: 4.6 cm IVSd: 1.2 cm Ao root diam: 3.7 cm LVIDs: 2.7 cm LVPWd: 1.2 cm FS: 41.3 % LAV(MOD-sp4): 35.2 ml LVAd ap4: 20.3 cm2 SV(MOD-sp4): 32.1 ml LVLd ap4: 6.9 cm EDV(MOD-sp4): 50.1 ml EDV(sp4-el): 51.1 ml LVAs ap4: 10.0 cm2 LVLs ap4: 5.5 cm ESV(MOD-sp4): 18.0 ml ESV(sp4-el): 15.4 ml EF(MOD-sp4): 64.0 % EF(sp4-el): 69.8 % SV(sp4-el): 35.7 ml LA A4 area: 14.7 cm2 LA dimension(2D): 3.0 cm RA A4 area: 14.3 cm2 Time Measurements MV dec time: 0.26 sec Doppler Measurements & Calculations MV E max esau: 53.1 cm/sec Lat Peak E' Esau: 11.5 cm/sec Med Peak E' Esau: 6.8 cm/sec MV A max esau: 67.1 cm/sec E/E' lat: 4.6 E/E' med: 7.8 MV E/A: 0.79 MV V2 max: 69.6 cm/sec Ao V2 max: 140.3 cm/sec MV max P.9 mmHg MV dec slope: 208.0 cm/sec2 Ao max P.9 mmHg MV V2 mean: 44.2 cm/sec Ao V2 mean: 95.4 cm/sec MV mean P.87 mmHg Ao mean P.1 mmHg MV V2 VTI: 25.0 cm Ao V2 VTI: 32.1 cm AV (velocity ratio): 0.85 LV V1 max: 108.8 cm/sec PA V2 max: 93.4 cm/sec LV V1 max P.7 mmHg PA V2 mean: 61.4 cm/sec LV V1 mean P.7 mmHg LV V1 mean: 77.9 cm/sec LV V1 VTI: 27.3 cm ECHO/Echo Complete Interpretation Summary Normal LV size. Left ventricular systolic function is hyperdynamic. Mild concentric left ventricular hypertrophy. The estimated ejection fraction is 75 %. Stage 1 diastolic dysfunction. Ordering Physician: Kellee Larios Referring Physician: DANIELA STEWART Performed By: Razia Mcneil RCS
[2022-07-03] MEDS: Aspirin 81 MG TAB.CHEW PO (08:03)
[2022-07-03] MEDS: Enoxaparin 40 MG/0.4 ML Syringe SC (08:03)
--- NOTE | 2022-07-03 10:39 | PCM.PN.HOSP ---
Subjective Subjective Laying in bed, no acute distress, feeling possibly slightly better, denies any focal deficits, mostly feels tired, was answering questions for her nurse but had difficulty telling me what year it was Objective Data Objective Data Vital Signs: Vital Signs Temp Pulse Resp BP Pulse Ox O2 Del Method 97.9 F 64 18 160/71 H 99 Room Air 07/03/22 10:00 07/03/22 10:00 07/03/22 10:00 07/03/22 10:00 07/03/22 10:00 07/03/22 10:00 Oxygen Delivery Method Room Air Weight: 64.7 kg Body Mass Index (BMI) 26.1 Lab / Micro Data Result Diagrams: 07/03/22 02:25 07/03/22 02:25 Labs: Laboratory Results - last 24 hr 07/02/22 17:40: POC Glucose 105 07/02/22 18:57: WBC Cancelled, Corrected WBC Cancelled, RBC Cancelled, Hgb Cancelled, Hct Cancelled, MCV Cancelled, MCH Cancelled, MCHC Cancelled, RDW Std Deviation Cancelled, RDW Coeff of Jovani Cancelled, Plt Count Cancelled, MPV Cancelled, Immature Gran % (Auto) Cancelled, Neut % (Auto) Cancelled, Lymph % (Auto) Cancelled, [place] % (Auto) Cancelled, Eos % (Auto) Cancelled, Baso % (Auto) Cancelled, Absolute Neuts (auto) Cancelled, Absolute Lymphs (auto) Cancelled, Total Counted Cancelled, Neutrophils % (Manual) Cancelled, Band Neutrophils % Cancelled, Lymphocytes % (Manual) Cancelled, Monocytes % (Manual) Cancelled, Eosinophils % (Manual) Cancelled, Basophils % (Manual) Cancelled, Metamyelocytes % Cancelled, Myelocytes % Cancelled, Promyelocytes % Cancelled, Blast Cells % Cancelled, Plasma Cell % (Manual) Cancelled, Other Cells % Cancelled, Nucleated RBC % Cancelled, Nucleated RBCs/100 WBC Cancelled, Differential Comment Cancelled, Diff Path Review Cancelled, Hypersegmented Neuts Cancelled, Atypical Lymphocytes Cancelled, Reactive Lymphocytes Cancelled, Smudge Cells Cancelled, Toxic Granulation Cancelled, Toxic Vacuolation Cancelled, Dohle Bodies Cancelled, Inocencia Rods Cancelled, Platelet Estimate Cancelled, Plt Morphology Comment Cancelled, RBC Morphology Cancelled, Polychromasia Cancelled, Hypochromasia Cancelled, Poikilocytosis Cancelled, Basophilic Stippling Cancelled, Anisocytosis Cancelled, Microcytosis Cancelled, Macrocytosis Cancelled, Spherocytes Cancelled, Sickle Cells Cancelled, Target Cells Cancelled, Tear Drop Cells Cancelled, Ovalocytes Cancelled, Stomatocytes Cancelled, [place] Bodies Cancelled, Jaycee Cells Cancelled, Bite Cells Cancelled, Crenated Cell Cancelled, Acanthocytes (Spur) Cancelled, Rouleaux Cancelled, Schistocytes Cancelled 07/02/22 18:57: Sodium Cancelled, Potassium Cancelled, Chloride Cancelled, Carbon Dioxide Cancelled, Anion Gap Cancelled, BUN Cancelled, Creatinine Cancelled, Estim Creat Clear Calc Cancelled, Est GFR (MDRD) Af Amer Cancelled, Est GFR (MDRD) Non-Af Cancelled, BUN/Creatinine Ratio Cancelled, Glucose Cancelled, Calcium Cancelled, Total Bilirubin Cancelled, AST Cancelled, ALT Cancelled, Alkaline Phosphatase Cancelled, Troponin I High Sens Cancelled, Total Protein Cancelled, Albumin Cancelled, Globulin Cancelled, Albumin/Globulin Ratio Cancelled 07/02/22 18:57: Ethyl Alcohol Cancelled 07/02/22 19:55: Urine Color Yellow, Urine Clarity Clear, Urine pH 6.0, Ur Specific [place] 1.020, Urine Protein 15 H, Urine Glucose (UA) Normal, Urine Ketones Negative, Urine Occult Blood Negative, Urine Nitrite Negative, Urine Bilirubin Negative, Urine Urobilinogen Normal, Ur Leukocyte Esterase 500 H, Urine RBC 0 SEEN, Urine WBC 0-5 SEEN, Ur Squamous Epith Cells 0-5 SEEN, Urine Bacteria 0 SEEN, Urine Mucus 0 SEEN 07/02/22 19:55: Urine Opiates Screen NEGATIVE, Urine Methadone Screen NEGATIVE, Ur Barbiturates Screen NEGATIVE, Ur Phencyclidine Scrn NEGATIVE, Ur Amphetamines Screen POSITIVE H, MDMA (Ecstasy) Screen POSITIVE H, U Benzodiazepines Scrn NEGATIVE, Urine Cocaine Screen NEGATIVE, U Cannabinoids Screen POSITIVE H, Ur Drug Screen Comment 07/02/22 19:57: Sodium 141, Potassium 3.4 L, Chloride 110 H, Carbon Dioxide 27.0, Anion Gap 4 L, BUN 22 H, Creatinine 1.22 H, Estim Creat Clear Calc 39.78, Est GFR (MDRD) Af Amer 59 L, Est GFR (MDRD) Non-Af 49 L, BUN/Creatinine Ratio 18.0, Glucose 115 H, Calcium 9.0, Total Bilirubin 0.30, AST 13 L, ALT 21, Alkaline Phosphatase 41 L, Troponin I High Sens 16, Total Protein 7.4, Albumin 3.5, Globulin 3.9, Albumin/Globulin Ratio 0.9 07/02/22 19:57: Ethyl Alcohol < 3.0 07/02/22 19:57: WBC 11.9 H, RBC 4.51, Hgb 12.8, Hct 38.8, MCV 86.0, MCH 28.4, MCHC 33.0, RDW Std Deviation 39.5, RDW Coeff of Jovani 12.5, Plt Count 294, MPV 11.2, Immature Gran % (Auto) 0.300, Neut % (Auto) 70.6 H, Lymph % (Auto) 20.1, [place] % (Auto) 7.1, Eos % (Auto) 1.3, Baso % (Auto) 0.6, Absolute Neuts (auto) 8.4 H, Absolute Lymphs (auto) 2.40, Nucleated RBC % 0 07/02/22 22:55: Troponin I High Sens 18 07/03/22 02:25: WBC 9.2, RBC 4.41, Hgb 12.4, Hct 38.2, MCV 86.6, MCH 28.1, MCHC 32.5, RDW Std Deviation 39.9, RDW Coeff of Jovani 12.6, Plt Count 296, MPV 11.2, Immature Gran % (Auto) 0.300, Neut % (Auto) 60.3, Lymph % (Auto) 26.6, [place] % (Auto) 8.5, Eos % (Auto) 3.6, Baso % (Auto) 0.7, Absolute Neuts (auto) 5.6, Absolute Lymphs (auto) 2.44, Nucleated RBC % 0 07/03/22 02:25: Sodium 141, Potassium 4.1, Chloride 111 H, Carbon Dioxide 26.0, Anion Gap 4 L, BUN 20 H, Creatinine 1.16 H, Estim Creat Clear Calc 43.85, Est GFR (MDRD) Af Amer 63, Est GFR (MDRD) Non-Af 52 L, BUN/Creatinine Ratio 17.2, Glucose 101, Calcium 9.0, Triglycerides 71, Cholesterol 162, LDL Cholesterol 91, VLDL Cholesterol 14, HDL Cholesterol 57 07/03/22 02:25: Troponin I High Sens 17 Micro: Microbiology 07/02/22 17:51 Nasal Secretion SARS-CoV-2 Antigen (Rapid) - Final Radiography Diagnostic Testing: Radiology Impression Brain CT 07/02/22 17:33 IMPRESSION: Chronic involutional changes of the brain. Right occipital infarct has occurred since the prior exam. Electronically Signed: José Miguel Mehta MD at 19:57 EST , Chest X-Ray 07/02/22 18:55 IMPRESSION: No acute cardiopulmonary disease. Electronically Signed: José Miguel Mehta MD at 19:33 EST , Physical Exam Const alert Constitutional Narrative: Appears tired, laying down in bed, would not answer year was HEENT normocephalic and head/scalp atraumatic Eyes Eyes Narrative: EOM grossly intact, anicteric Neck supple Resp normal respiratory effort and clear to auscultation bilaterally Cardio regular rate and regular rhythm GI soft to palpation, non-tender and non-distended Extremity Extremity Narrative: No edema appreciated Neuro CN's II-XII intact bilaterally and moves all extremities Neuro Narrative: Strength symmetric in upper and lower extremities Psych Psych Narrative: Cooperative Assessment & Plan Assessment/Plan (1) Encephalopathy: PLAN: Plan 52-year-old female with history of hepatitis B, hypertension, tobacco use, hidradenitis suppurativa presented to the ED 07/02/2022 with complaint of confusion. Recently lost her brother and had not been taking her medications and was feeling sad from his . She not been seen by family members for several days to weeks and a friend's daughter went to her house day of presentation and found her confused. Does have history of IV drug use though friend felt that this seemed different than when she was using. By the time of evaluation she was alert and oriented, CT of the brain showed chronic lacunar infarcts of the lateral basal ganglia and thalami of unclear age. She was admitted for management and work-up of acute metabolic encephalopathy and possible CVA. #Acute encephalopathy unclear etiology CT did show lacunar infarcts bilateral basal ganglia and thalami with unclear age, of note UDS was positive for amphetamines, MDMA, cannabinoids Stroke work-up also ordered, MRI brain, MRA, echo Statin, aspirin PT/OT Permissive hypertension #Polysubstance use UDS positive for amphetamines, MDMA, cannabinoids Once patient able to wake up more May benefit from being offered resources if reporting ongoing use #DVT ppx: cece Jones MD Charges/Coding Visit Charges Inpatient E&M: 49864 Subs Hosp L1
--- NOTE | 2022-07-03 12:00 | MRI_ITS ---
We are attempting to reach an attending provider to discuss findings. An addendum with communication details will be sent when the communication is complete. STUDY: MRI BRAIN WITHOUT CONTRAST REASON FOR EXAM: Female, 52 years old. Stroke TECHNIQUE: Standardized multiplanar fat and water weighted pulse sequences were obtained. COMPARISON: 01/28/2021, CT 07/02/2022 FINDINGS: There is moderate cerebral atrophy with widening of the extra-axial spaces and ventricular dilatation. There are multiple white matter hyperintensities, distributed throughout the deep white matter tracts of the cerebral hemispheres, consistent with moderate chronic white matter ischemic changes. Encephalomalacia and gliosis in the right occipital lobe consistent with a chronic infarct. Chronic lacunar infarcts in the paravertebral white matter of the right parietal lobe. Linear and oval areas of restricted diffusion within the left occipital lobe adjacent to the occipital horn of the left lateral ventricle worrisome for acute/subacute infarct. Normal T2* images of the brain without demonstrated susceptibility artifact. There is no demonstrated hemosiderin stain. Normal bilateral basal ganglia. Normal thalami. There is no extra-axial fluid accumulation. Normal flow voids within the major intracranial circulation suggesting patency by spin echo criteria. Normal sella turcica, pituitary gland, infundibular stalk, optic chiasm and hypothalamus. Normal tectal plate and pineal gland. Normal midbrain, addy and medulla. Normal cerebellum. Normal basal cisterns. Normal bilateral temporal bones. Normal bilateral internal auditory canals. There are bilateral ocular lens implants with otherwise normal intraorbital contents. Complete opacification of the right maxilla sinus consistent with chronic sinusitis. Normal calvarium and skull base. Normal visualized soft tissue structures. Normal visualized upper cervical spine. MRI/Brain without Contrast IMPRESSION: Involutional changes of the brain, as described above. Small Acute/subacute infarcts of the left occipital lobe. Electronically Signed: Lemuel García MD at 15:17 EST ,
--- NOTE | 2022-07-03 12:00 | MRI_ITS ---
STUDY: MRA NECK WITH AND WITHOUT CONTRAST REASON FOR EXAM: Female, 52 years old. stroke TECHNIQUE: 3-D [id number] (TOF) imaging was performed in an 1.5 T MRI scanner. 10ml Clariscan via IV was administered for the contrast enhanced images. COMPARISON: CTA 04/29/2022 FINDINGS: RIGHT CAROTID ARTERIES: Normal right common carotid artery (CCA). Normal right common carotid bulb. Normal origin of the right internal carotid (ICA) artery without a hemodynamically significant stenosis. Normal visualized cervical portion of the right internal carotid artery. Normal origin of the right external carotid artery (ECA). LEFT CAROTID ARTERIES: Normal left common carotid artery (CCA). Normal left common carotid bulb. Normal origin of the left internal carotid (ICA) artery without a hemodynamically significant stenosis. Normal visualized cervical portion of the left internal carotid artery. Normal origin of the left external carotid artery (ECA). VERTEBRAL ARTERIES: Normal antegrade flow within the bilateral vertebral artery without a hemodynamically significant stenosis. MRI/MRA Neck WITH and W/O Contrast IMPRESSION: Normal bilateral cervical carotid and vertebral arteries. Electronically Signed: Lemuel García MD at 15:38 EST ,
--- NOTE | 2022-07-03 12:00 | MRI_ITS ---
INDICATION: stroke EXAMINATION: MRA - MRA Head W/O Contrast TECHNIQUE: Routine [place] of [place]/brain 3D time of flight MR angiogram protocol was performed without gadolinium. 3D reconstructions were reviewed. IV Contrast Dosage and Agent: None. COMPARISON: None. FINDINGS: Intracranial carotids:Normal course and caliber. MCAs:No aneurysm or significant stenosis. ACAs:No aneurysm or significant stenosis. Basilar:Normal caliber. No aneurysm. sample tailor:Attenuation of peripheral right MEDICAL TECHNICIAN branches. Left with only mild narrowing. Fed by dominant posterior communicating arteries bilaterally. Patent bilateral posterior and anterior inferior and superior cerebellar arteries are identified. No evidence of AVM or aneurysm. MRI/MRA Head ONLY without Contrast IMPRESSION: Attenuation of peripheral right MEDICAL TECHNICIAN branches, likely chronic given the presence of a chronic right MEDICAL TECHNICIAN infarct on the MRI. No other significant arterial narrowing or occlusions. Electronically Signed: Dylon Trejo MD at 4:51 EST Reading Location ID and State: 1954 [place] Tel , Service support ,
--- NOTE | 2022-07-03 16:32 | CHAPLAIN ---
Type of Pastoral Visit ___ Initial Visit ___ Follow-up Visit ___ On-call Visit ___ General Patient Visit ___ Spiritual Assessment ___ Family Conference ___ Bereavement ___ Rapid Response ___ Code Blue ___ Other (describe below) Pastoral Care Referral From ___ Patient ___ Family ___ Nurse ___ Physician ___ Fibreglass Laminator ___ Napper Runner ___ Other (describe below) Sacrament/Intervention ___ Active listening ___ Anointing ___ Jehovah'S Witness ___ Bereavement ___ Communion ___ Mago exploration ___ ___ Life review ___ Prayer ___ Reconciliation ___ Sacrament of Sick ___ Supportive presence ___ Wedding ___ Other (describe below) Pastoral Comments patient is not in the room; left a calling card
--- NOTE | 2022-07-03 16:49 | CASEMGMT ---
SW was informed patient's brother recently and patient is having a hard time. SW met with patient. Introduced self and role at [facility]. Patient was tearful throughout conversation. SW listened and provided emotional support. Patient was open to counseling resources. Patient is on antidepressants, but does not go to counseling. Patient is open to SW checking back in with her. Elvia Benavidez LEAD CUSTOMER SERVICE REPRESENTATIVE SOPHIA
[2022-07-03] MEDS: Clopidogrel Bisulfate 75 MG Tablet PO (18:30)
[2022-07-03] MEDS: Atorvastatin Calcium 80 MG Tablet PO (22:14)
[2022-07-04 02:00] VITALS: BP 155/88; PULSE 68; RESP 18; TEMP 36.7; O2SAT 96
[2022-07-04 06:00] VITALS: BP 140/103; PULSE 64; RESP 16; TEMP 36.7; O2SAT 97
[2022-07-04 07:24] VITALS: O2SAT 95
[2022-07-04 08:27] LABS: Absolute Lymphocyte Count 2.18 X10^3/uL (0.83-4.51); Absolute Neutrophil Count 4.7 X10^3/uL (2.0-7.7); Basophil# 0.07 X10^3/uL; Basophil% 0.9 % (0-1); Eosinophil# 0.43 X10^3/uL; Eosinophils% 5.3 % (0-5); Lymphocyte # 2.18 X10^3/ul (0.83-4.51); Lymphocyte % 26.9 % (19-41); Mean Corp Hgb Conc 32.5 g/dL (32-36); Mean Corpuscular Hgb 28.2 pg (27.0-32.0); Mean Corpuscular Volume 86.8 fL (81-99); Mean Platelet Vol. 11.5 fl (6.2-12.0); Monocyte# 0.65 X10^3/uL; NRBC Flagged by Analyzer 0 % (0-5); Neutrophil # 4.74 X10^3/uL (2.7-7.7); Neutrophil % 58.5 % (47-70); Platelet Count 283 K/mm3 (150-450); RBC Distribution Width CV 12.6 % (11.6-14.6); Red Blood Count 4.61 M/mm3 (4.2-5.4); White Blood Count 8.1 K/mm3 (4.4-11.0)
[2022-07-04 08:35] VITALS: BMI 26.1
[2022-07-04 08:52] LABS: Anion Gap 4 (5-15); BUN 20 mg/dL (7-18); BUN/Creat Ratio 16.5 RATIO (10-20); Chloride 111 mmol/L (98-107); Creatinine, Serum 1.21 mg/dL (0.55-1.02); EST Glomerular Filtration Rate 49 mL/min (>60); Est Glom Filt Rate - Afr Amer 60 mL/min (>60); Estimated Creatinine Clearance 42.04 ml/min; Glucose 90 mg/dL (74-106); Sodium Level 140 mmol/L (136-145)
[2022-07-04 09:34] VITALS: BP 163/100; PULSE 58; RESP 16; TEMP 36.5; O2SAT 95
[2022-07-04] MEDS: Clopidogrel Bisulfate 75 MG Tablet PO (09:39)
[2022-07-04] MEDS: Aspirin 81 MG TAB.CHEW PO (09:39)
[2022-07-04] MEDS: Enoxaparin 40 MG/0.4 ML Syringe SC (09:39)
--- NOTE | 2022-07-04 10:51 | CASEMGMT ---
REBECCA CANTU DC Planning Assessment: Face to Face with pt for initial DC planning/care coordination. REBECCA CANTU introduced self and role at [facility]. Pt sleepy but easily aroused and nodded head in understanding. Pt states she does not feel she has any dc needs at this time. Pt returning to sleep and provided this flex o writer operator permission to contact her family to further evaluate any needs. REBECCA CANTU attemped to contact pt's daughter but phone call did not ring. Call placed to pt's S.O. Demetrius who was agreeable to participating in assessment. Care Providers, pharmacy and demographics reviewed. PCP: Jarod (S.O. could not confirm) Preferred Phamacy: [facility] INsurance: Cashback [place] w/prescription benefit LNOK: daughter Yashira Living arrangements: pt lives w/S.O. in a single story home without steps to enter. Pt is independent with most ADLs but has required assistance due to some difficulties with her arm. Pt is independent with household tasks including cooking, cleaning and laundry. DME: grab bars in bathroom. SNF/HHC: none Transportation: pt does not dive. S.O. or family transports pt as needed. Plan: Return home with the support of pt's S.O. and family. PT/OT evals reviewed and no further therapy is recommended. Chencho Pham RN CM
[2022-07-04 12:13] VITALS: BP 172/87; PULSE 75; RESP 18; TEMP 37.1; O2SAT 95
--- NOTE | 2022-07-04 13:30 | CASEMGMT ---
Social Work SW met w/pt, assisted pt in completing PHQ-9. Pt tearful during conversation. Pt did answer she is having little interest in doing things, though states she cannot remember how often this is. Pt also answered she is feeling down, depressed and hopeless but cannot remember how often. Additionally, pt reports to being tired and having little energy, but cannot remember how often. SW put in several days for these answers since pt cannot remember. Though pt's score on the PHQ-9, pt is tearful and states having a difficult time. Pt denies being suicidal. Pt explains just lost her brother in May. Pt is interested in a list of counseling options. Pt's sister in [facility], w/pt's permission had sister Enrico come back in. Enrico confirms their brother just on . SW explained will bring in a list of counseling options for pt. Pt's sister then followed SW into the [facility] and also stated that pt's daughter is at a fdc and on a liver transplant list. Also, they have lost both parents. Additionally, pt broke her arm and it has not healed correctly. Pt's sister states pt has been to [facility] in the past. SW explained will bring in a list for pt. SW returned, brought a list of counseling places for pt, encouraged her to follow up on Wednesday. SW also included hospice on the list for bereavement counseling. No further needs anticipated, pt to follow up w/counseling after discharge. BELINDA Kelley
--- NOTE | 2022-07-04 15:12 | PCM.DC ---
Discharge Instructions Diet Discharge Diet: No restrictions Activity Discharge Activity: Return to Normal Activity Follow Up Care Test Results: Test results from this visit will be discussed in further detail at your follow-up appointment, if applicable. Discharge Plan Admission Admit Date/Time: 07/02/22 20:44 Primary Reason for Your Visit: Change in mental status Attending Provider: Georgette Jones Primary Care Provider: Desean Bonilla Consulting Providers: Kellee Larios Instructions Patient Instructions: Discharge Instructions for Stroke, ED Drug Abuse Additional Instructions / Restrictions: *Please take this with you to your next doctors appointment* DISCHARGE INSTRUCTIONS PLEASE READ ?You were diagnosed with several small strokes and was seen by neurologist while in hospital. ? You will need to take aspirin and Plavix for 3 weeks followed by aspirin alone. ?Clopidogrel/Plavix 3-week supply will be sent to preferred pharmacy on file ?Please continue to take your atorvastatin 80 mg ? You will be set up with a 30-day heart monitor on discharge ? Follow-up with neurology upon discharge, please call Dr. Childs's office upon discharge to schedule hospital follow-up appointment ?Please resume your home blood pressure medication ? It is strongly advised that you refrain from any substance use. Please call [facility] located at [address] [place] [phone] (ph [phone]) if you are interested in further resources ?finish repair worker also provided you with a list of options for counseling -Please call your primary care provider's office upon discharge to schedule a hospital follow up within 1 week. -For any concerning signs or symptoms please call 911 or proceed to the nearest emergency department Discharge Orders/Prescriptions Prescriptions: New clopidogrel 75 mg Tablet 75 mg PO DAILY 21 Days Qty: 21 0RF Continued atorvastatin 80 mg tablet 80 mg PO QHS Label Comments: TAKE 1 TABLET BY MOUTH EVERY DAY AT BEDTIME metoprolol succinate 50 mg tablet extended release 24 hr 50 mg PO DAILY Label Comments: TAKE 1 TABLET BY MOUTH EVERY DAY lisinopril 20 mg tablet 20 mg PO DAILY Label Comments: TAKE 1 TABLET BY MOUTH EVERY DAY aspirin 81 mg tablet,chewable 81 mg PO DAILY Label Comments: TAKE 1 TABLET BY MOUTH EVERY DAY hydrochlorothiazide 25 mg tablet 25 mg PO DAILY Label Comments: TAKE 1 TABLET BY MOUTH EVERY DAY Other Ambulatory Orders: 30 Day Event Recorder Preventi (Urgent) Timeframe: 1 Day Facility: [facility] - Location: Cardiovascular Services Ordered By: Dr. Georgette Jones Referrals / Follow Up: Rudi Childs MD [Non-Staff -Ordering Privileges] - See Referral Note (? Follow-up with neurology upon discharge, please call Dr. Childs's office upon discharge to schedule hospital follow-up appointment) Desean Bonilla MD [Primary Care Provider] - Within 1 Week Disposition Disposition (needs filled in before D/C Order can be placed): Home, Self Care
--- NOTE | 2022-07-04 15:23 | DS.PCM_ITS ---
Providers Date of Admission: 07/02/22 Date of Discharge: 07/04/22 Primary Care Physician: Dr. Desean Bonilla MD Reason For Visit: ACUTE CVA Diagnosis Discharge Diagnosis (1) Ischemic cerebrovascular accident (CVA): Status: Acute Code(s): I63.9 - Cerebral infarction, unspecified Plan #Acute CVA #Polysubstance abuse Medications at Discharge Home Medications aspirin 81 mg chewable tablet 81 mg PO DAILY 07/02/22 atorvastatin 80 mg tablet 80 mg PO QHS 07/02/22 hydrochlorothiazide 25 mg tablet 25 mg PO DAILY 07/02/22 lisinopril 20 mg tablet 20 mg PO DAILY 07/02/22 metoprolol succinate 50 mg tablet,extended release 24 hr 50 mg PO DAILY 07/02/22 clopidogrel 75 mg tablet 75 mg PO DAILY 21 days #21 tabs 07/04/22 Hospital Course Procedures - (echo, mri, mra) Summary of Care Provided Minutes Spent on Discharge: 25 Hospital Course: 52-year-old female with history of hepatitis B, hypertension, tobacco use, hidradenitis suppurativa presented to the ED 07/02/2022 with complaint of confusion. Recently lost her brother and had not been taking her medications and was feeling sad from his . She not been seen by family members for several days to weeks and a friend's daughter went to her house day of presentation and found her confused. Does have history of IV drug use though friend felt that this seemed different than when she was using. By the time of evaluation she was alert and oriented, CT of the brain showed chronic lacunar infarcts of the lateral basal ganglia and thalami of unclear age. She was admitted for management and work-up of acute metabolic encephalopathy and possible CVA. MRI demonstrated involutional changes of the brain as well as small acute/subacute infarcts of the left occipital lobe. MRA neck unremarkable, MRA head had attenuation and peripheral right AB INITIO ETL DEVELOPER branches which were likely chronic as there were chronic right AB INITIO ETL DEVELOPER infarct and no other significant arterial narrowing or occlusions. Previous echo with negative bubble study. She gradually improved. Neuro consulted and recommended 30-day event monitor on discharge, aspirin and Plavix for 3 weeks followed by aspirin monotherapy. On the day of discharge she was feeling much better and denied any focal deficits, mental status significantly improved. Seen with boyfriend at bedside. BP was elevated prior to discharge but she had been allowed permissive hypertension, discharged on home antihypertensives and follow-up with PCP. Discharge instructions as followed: DISCHARGE INSTRUCTIONS PLEASE READ ?You were diagnosed with several small strokes and was seen by neurologist while in hospital. ? You will need to take aspirin and Plavix for 3 weeks followed by aspirin alone. ?Clopidogrel/Plavix 3-week supply will be sent to preferred pharmacy on file ?Please continue to take your atorvastatin 80 mg ? You will be set up with a 30-day heart monitor on discharge ? Follow-up with neurology upon discharge, please call Dr. Childs's office upon discharge to schedule hospital follow-up appointment ?Please resume your home blood pressure medication ? It is strongly advised that you refrain from any substance use.? [facility] at [address] [place], [place] [phone] (ph [phone]) if you are interested in further resources ?nursing home social worker also provided you with a list of options for counseling -Please call your primary care provider's office upon discharge to schedule a hospital follow up within 1 week. -For any concerning signs or symptoms please call 911 or proceed to the nearest emergency department Physical Exam Const alert Constitutional Narrative: Oriented HEENT normocephalic and head/scalp atraumatic Eyes Eyes Narrative: EOM grossly intact, anicteric Neck supple Resp normal respiratory effort and clear to auscultation bilaterally Cardio regular rate and regular rhythm GI soft to palpation, non-tender and non-distended Extremity Extremity Narrative: No edema appreciated Neuro moves all extremities Neuro Narrative: No overt focal deficits appreciated Psych Psych Narrative: Cooperative Weight / BMI Weight Weight: 64.7 kg Body Mass Index (BMI) 26.1 ABG / Lab / Microbiology Data Result Diagrams: 07/04/22 08:03 07/04/22 08:03 Laboratory: Laboratory Results - last 24 hr 07/04/22 08:03: WBC 8.1, RBC 4.61, Hgb 13.0, Hct 40.0, MCV 86.8, MCH 28.2, MCHC 32.5, RDW Std Deviation 40.0, RDW Coeff of Jovani 12.6, Plt Count 283, MPV 11.5, Immature Gran % (Auto) 0.400, Neut % (Auto) 58.5, Lymph % (Auto) 26.9, Converse % (Auto) 8.0, Eos % (Auto) 5.3 H, Baso % (Auto) 0.9, Absolute Neuts (auto) 4.7, Absolute Lymphs (auto) 2.18, Nucleated RBC % 0 07/04/22 08:03: Sodium 140, Potassium 4.0, Chloride 111 H, Carbon Dioxide 25.0, Anion Gap 4 L, BUN 20 H, Creatinine 1.21 H, Estim Creat Clear Calc 42.04, Est GFR (MDRD) Af Amer 60, Est GFR (MDRD) Non-Af 49 L, BUN/Creatinine Ratio 16.5, Glucose 90, Calcium 9.0 Microbiology: Microbiology 07/02/22 17:51 Nasal Secretion SARS-CoV-2 Antigen (Rapid) - Final Radiography Diagnostic Testing: Radiology Impression Brain MRI 07/03/22 12:00 IMPRESSION: Involutional changes of the brain, as described above. Small Acute/subacute infarcts of the left occipital lobe. Electronically Signed: Lemuel García MD at 15:17 EST , ADDENDUM: 07/03/22 1532 IMPRESSION: Involutional changes of the brain, as described above. Small Acute/subacute infarcts of the left occipital lobe. N.B. : The above Results were Read Back by Lemuel García MD to Amanda Hoang RN, and understanding confirmed on 07/03/2022 15:25:07 (ET). Electronically Signed: Lemuel García MD at 15:17 EST , Head MRA 07/03/22 12:00 IMPRESSION: Attenuation of peripheral right AB INITIO ETL DEVELOPER branches, likely chronic given the presence of a chronic right AB INITIO ETL DEVELOPER infarct on the MRI. No other significant arterial narrowing or occlusions. Electronically Signed: Dylon Trejo MD at 4:51 EST , Neck MRA 07/03/22 12:00 IMPRESSION: Normal bilateral cervical carotid and vertebral arteries. Electronically Signed: Lemuel García MD at 15:38 EST , D/C Instructions Discharge Diet: No restrictions Meaningful Use Info Meaningful Use Diagnoses (Choose all that apply): Ischemic CVA CVA Therapy Assessed for PT,OT and/or ST?: Yes Ischemic Stroke Antithrombotic order at d/c?: Yes Dx of Atrial fib/flutter?: No Statins at discharge?: Yes Primary Dx Acute Ischemic CVA?: Yes IV tPA ordered during stay?: No Reason IV t-PA not ordered: Medical Contraindication Discharge Plan Admission Admit Date/Time: 07/02/22 20:44 Primary Reason for Your Visit: Change in mental status Attending Provider: Georgette Jones Primary Care Provider: Desean Bonilla Consulting Providers: Kellee Larios Instructions Patient Instructions: Discharge Instructions for Stroke, ED Drug Abuse Additional Instructions / Restrictions: *Please take this with you to your next doctors appointment* DISCHARGE INSTRUCTIONS PLEASE READ ?You were diagnosed with several small strokes and was seen by neurologist while in hospital. ? You will need to take aspirin and Plavix for 3 weeks followed by aspirin alone. ?Clopidogrel/Plavix 3-week supply will be sent to preferred pharmacy on file ?Please continue to take your atorvastatin 80 mg ? You will be set up with a 30-day heart monitor on discharge ? Follow-up with neurology upon discharge, please call Dr. Childs's office upon discharge to schedule hospital follow-up appointment ?Please resume your home blood pressure medication ? It is strongly advised that you refrain from any substance use. Please call [facility] located at [address] [place] [phone] (ph [phone]) if you are interested in further resources ?nursing home social worker also provided you with a list of options for counseling -Please call your primary care provider's office upon discharge to schedule a hospital follow up within 1 week. -For any concerning signs or symptoms please call 911 or proceed to the nearest emergency department Discharge Orders/Prescriptions Prescriptions: New clopidogrel 75 mg Tablet 75 mg PO DAILY 21 Days Qty: 21 0RF Continued atorvastatin 80 mg tablet 80 mg PO QHS Label Comments: TAKE 1 TABLET BY MOUTH EVERY DAY AT BEDTIME metoprolol succinate 50 mg tablet extended release 24 hr 50 mg PO DAILY Label Comments: TAKE 1 TABLET BY MOUTH EVERY DAY lisinopril 20 mg tablet 20 mg PO DAILY Label Comments: TAKE 1 TABLET BY MOUTH EVERY DAY aspirin 81 mg tablet,chewable 81 mg PO DAILY Label Comments: TAKE 1 TABLET BY MOUTH EVERY DAY hydrochlorothiazide 25 mg tablet 25 mg PO DAILY Label Comments: TAKE 1 TABLET BY MOUTH EVERY DAY Other Ambulatory Orders: 30 Day Event Recorder Preventi (Urgent) Timeframe: 1 Day Facility: [facility] - Location: Cardiovascular Services Ordered By: Dr. Georgette Jones Referrals / Follow Up: Rudi Childs MD [Non-Staff -Ordering Privileges] - See Referral Note (? Follow-up with neurology upon discharge, please call Dr. Childs's office upon discharge to schedule hospital follow-up appointment) Desean Bonilla MD [Primary Care Provider] - Within 1 Week Disposition Disposition (needs filled in before D/C Order can be placed): Home, Self Care Charges/Coding Visit Charges Inpatient E&M: 82122 Disch Hosp
== END 2022-07-04 16:53 | disposition home or self-care (01) | DRG 45 ==
LOC: ED 20:15 → PCU 20:55
PROVIDERS: Admitting Provider Student in an Organized Health Care Education/Training Program; Emergency Provider Emergency Medicine; PCP Family Medicine; Visit Provider Internal Medicine
DX: I63.432 Cerebral infarction due to embolism of left posterior cerebral artery (principal); G93.41 Metabolic encephalopathy; F15.10 Other stimulant abuse, uncomplicated; F16.10 Hallucinogen abuse, uncomplicated; F17.210 Nicotine dependence, cigarettes, uncomplicated; I10 Essential (primary) hypertension; F12.10 Cannabis abuse, uncomplicated; B19.10 Unspecified viral hepatitis B without hepatic coma; R29.700 NIHSS score 0; R29.701 NIHSS score 1; Z79.82 Long term (current) use of aspirin; Z79.899 Other long term (current) drug therapy; Z86.73 Personal history of transient ischemic attack (TIA), and cerebral infarction without residual deficits
CPT/HCPCS: 36415; 70450; 70544; 70549; 70551; 71045; 80048; 80053; 80061; 80307; 81001; 82077; 82962; 84484; 85025; 87811; 93005; 93306; 94762; 97162; 97165; 99283; 99406; A9575; A4216

== ENCOUNTER 2022-09-24 08:33 | Inpatient (IN) | payer MEDICAID, SELFPAY ==
[2022-09-24] VITALS (12 sets, daily range): BP systolic 144–211; BP diastolic 86–105; PULSE 59–71; RESP 16–18; TEMP 36.3–36.7; O2SAT 95–100; BMI 27.1; BMI 26.2
--- NOTE | 2022-09-24 08:34 | ED.RN ---
partial nih per dr man straight to ct by ems.
--- NOTE | 2022-09-24 08:36 | RAD_ITS ---
STUDY: X-RAY CHEST REASON FOR EXAM: Female, 52 years old. Neuro deficit, acute, stroke suspected TECHNIQUE: Single AP portable view of the chest. COMPARISON: Comparison is made with prior study of July 02, 2022. FINDINGS: EKG electrodes are seen. Hyperinflation. I suspect a 1.4 cm x 1.2 cm cavitated nodule in the right lower lobe. There is no demonstrated pleural abnormality. Normal size heart. Normal mediastinum and shima. Normal visualized pulmonary arteries. Normal visualized aortic arch and descending thoracic aorta. Normal visualized thoracic spine. Normal visualized ribs, clavicles, and shoulders. There is no demonstrated abnormality of the visualized soft tissue structures of the upper abdomen. RAD/Chest 1 View IMPRESSION: I suspect a 1.4 cm x 1.2 cm cavitary nodule in the right lower lobe. Electronically Signed: Torin Minaya MD at 10:12 EDT ,
--- NOTE | 2022-09-24 08:36 | CT_ITS ---
STUDY: CT HEAD STROKE PROTOCOL W/O CONTRAST INJECTION REASON FOR EXAM: Female, 52 years old. Neuro deficit, acute, stroke suspected RADIATION DOSAGE (If Supplied By Facility): CTDIvol = ( 44.99 ) mGy, DLP = ( 796.11 ) mGycm TECHNIQUE: Transaxial CT imaging of the brain was performed without administration of intravenous contrast material. Individualized dose optimization techniques were used for this CT. COMPARISON: Comparison is made with prior study dated July 02, 2022. FINDINGS: Normal soft tissue structures. Normal calvarium. There is mild cerebral atrophy with widening of the extra-axial spaces and ventricular dilatation. There are areas of decreased attenuation within the white matter tracts of the supratentorial brain, consistent with microvascular disease changes. Stable focal encephalomalacia in the posterior right occipital lobe. Evidence of small bilateral lacunar infarcts. Normal brainstem. Normal cerebellum. There is no intracranial hemorrhage. There are no findings of an acute ischemic infarction. There is opacification of the right maxillary sinus with expansion of the medial wall of the sinus. There is opacification of the ethmoid sinuses more prominent on the right side. ASPECT score: 8 CT/STROKE Brain/Head without Cont IMPRESSION: Chronic involutional changes of the brain. No acute abnormality is seen. N.B. : The above Results were Read Back by Torin Minaya MD to Emery Subramanian and understanding confirmed on 09/24/2022 08:59:00 (ET). Electronically Signed: Torin Minaya MD at 9:00 EDT ,
--- NOTE | 2022-09-24 08:36 | EDS_ITS ---
HPI History of Present Illness Chief Complaint: Weakness Narrative Narrative: 52-year-old female past medical history of previous CVA without residual deficit, migraine headache, depression, hypertension, presents via EMS with left-sided weakness which is new for her. Her last known well time was yesterday evening at around 7 PM, approximately 13-1/2 hours ago. Per EMS, upon arrival, she had elevated blood pressure of 230 systolic. Labetalol 20 mg was given per protocol. She had noted left-sided weakness, with arm and leg drift. Prehospital stroke team was called by EMS. [facility] Medical History Alcohol abuse CVA (cerebral vascular accident) Depression Hepatitis B Hidradenitis suppurativa Hypertension Irregular heart beat Left axillary hidradenitis Smoker Tobacco use Vision loss of left eye Vision loss of right eye Home Medications aspirin 81 mg chewable tablet 81 mg PO DAILY 07/02/22 [History Last Taken Unknown] atorvastatin 80 mg tablet 80 mg PO QHS 07/02/22 [History Last Taken Unknown] hydrochlorothiazide 25 mg tablet 25 mg PO DAILY 07/02/22 [History Last Taken Unknown] lisinopril 20 mg tablet 20 mg PO DAILY 07/02/22 [History Last Taken Unknown] metoprolol succinate 50 mg tablet,extended release 24 hr 50 mg PO DAILY 07/02/22 [History Last Taken Unknown] clopidogrel 75 mg tablet 75 mg PO DAILY 21 days #21 tabs 07/04/22 [Rx Last Taken Unknown] Allergy/AdvReac Type Severity Reaction Status Date / Time Penicillins Allergy Hives Verified 09/24/22 08:50 Family History Mother CVA (cerebral vascular accident) CAD (coronary artery disease) Hypertension Heart disease Myocardial infarction Father CAD (coronary artery disease) Heart disease Hypertension Myocardial infarction Surgical History H/O umbilical hernia repair History of bilateral tubal ligation History of eye surgery Hx of cataract surgery S/P lens implant Status post glaucoma surgery Status post tonsillectomy and adenoidectomy Social History household members: none Smoking Status: Current every day smoker tobacco type: cigarettes how long ago did patient quit smoking: Patient reports 1/2 ppd cigarette tobacco use since teen. alcohol intake: never substance use type: does not use ROS ROS ED ROS Narrative Constitutional: No fever, no chills. HEENT: No sore throat. No neck pain. No loss of vision. No rhinorrhea. Cardiovascular: No chest pain. No palpitations. No pedal edema. Respiratory: No cough, no shortness of breath. Abdominal: No abdominal pain. No nausea. No vomiting. Genitourinary: No dysuria. No hematuria. Musculoskeletal: No myalgias. No arthralgias. Neurologic: No headaches. No dizziness. No lightheadedness. Left-sided weakness of arms and legs. Skin: No rash. No change in color. Psychiatric: No depression. No anxiety. EXAM Physical Exam Narrative Exam Narrative: Afebrile. Vital signs noted. HEENT: Normocephalic. Atraumatic. PERRL, EOMI. Neck soft and supple. No point tenderness or step off. Cardiovascular: Regular rate and rhythm. No murmurs, rubs, or gallops appreciated. Respiratory: No tachypnea. Lungs clear to auscultation bilaterally. Gastrointestinal: Abdomen soft, nontender, with normoactive bowel sounds. No rebound or guarding. Neurological: Awake. Positive arm drift, left, positive leg drift, but does not hit bed. Skin: No rash. Normal color. No pallor. Musculoskeletal: No pedal edema. Full range of motion extremities. Const Vital Signs: 09/24/22 08:36 09/24/22 08:51 09/24/22 08:52 Temperature 97.7 F L Temperature Source Oral Pulse Rate 67 63 Respiratory Rate 18 18 Blood Pressure 211/98 H 211/98 H Blood Pressure Mean 135 135 Pulse Ox 95 100 Oxygen Delivery Method Room Air Room Air Room Air 09/24/22 09:20 Temperature Temperature Source Pulse Rate 59 L Respiratory Rate 16 Blood Pressure 201/92 H Blood Pressure Mean 128 Pulse Ox 97 Oxygen Delivery Method Room Air MDM MDM MDM Narrative Medical decision making narrative: Prehospital stroke team was called. Given her left-sided weakness, CT of the brain and CTA of the head and neck was obtained. She is outside the initial window for tPA as her last known well time was approximately 13-1/2 hours ago or longer. I discussed with the radiologist the CT of the brain findings which are negative, there is an old right basal ganglia stroke noted/ischemic changes. EKG was obtained and interpreted by myself which demonstrates sinus bradycardia at 57 bpm without ectopy or acute ST changes. No STEMI. I interpreted independently her chest x-ray in 1 view and see no evidence of pneumothorax or gross consolidation. I do not feel antibiotics are indicated for pneumonia. EMS had administered labetalol with resultant blood pressure in the 180s. I do feel that this is going to be repeated as her blood pressure was recorded at 201/92 here in the emergency department. I reviewed her laboratory results and she has a normal white count 9.2, hemoglobin normal at 13.3, platelet count normal at 322, INR is normal at 1.0, APTT normal at 27.8, in review of her BMP, potassium slightly low at 3.4 with BUN of 18 and creatinine 1.32. High- sensitivity troponin is 12. Glucose normal at 95 with a normal anion gap of 6. I reviewed the CT reports of the CT brain and of the CTA which was read as normal, no evidence of large vessel occlusion. In discussion with the [facility] stroke teleneurologist, she agrees that the patient is outside the tPA window, and additionally, that without large vessel occlusion that she should be admitted here for further stroke work-up. I will discuss the patient with the hospitalist for the patient to be placed on observation in the PCU. She will also require blood pressure control as she may be having more of a hypertensive urgency/emergency given her strokelike symptoms. Disposition is assigned observation. Patient is in stable condition. History & Record Review Discussion w/independent historian: EMS personnel and Patient Additional record(s) reviewed:: Prior outpatient record and Prior ED visit Lab Data Attestation: I reviewed the patient's lab results. Labs: Laboratory Results - last 24 hr 09/24/22 09/24/22 09/24/22 08:20 08:20 08:20 WBC 9.2 RBC 4.81 Hgb 13.3 Hct 41.7 MCV 86.7 MCH 27.7 MCHC 31.9 L RDW Std Deviation 40.3 RDW Coeff of Jovani 12.7 Plt Count 322 MPV 11.9 Immature Gran % (Auto) 0.200 Neut % (Auto) 58.6 Lymph % (Auto) 27.5 [place] % (Auto) 7.7 Eos % (Auto) 5.0 Baso % (Auto) 1.0 Absolute Neuts (auto) 5.4 Absolute Lymphs (auto) 2.52 Nucleated RBC % 0 PT 13.0 INR 1.0 APTT 27.8 Sodium 139 Potassium 3.4 L Chloride 107 Carbon Dioxide 26.0 Anion Gap 6 BUN 18 Creatinine 1.32 H Estim Creat Clear Calc 38.53 Est GFR (MDRD) Af Amer 54 L Est GFR (MDRD) Non-Af 45 L BUN/Creatinine Ratio 13.6 Glucose 95 Calcium 9.1 Troponin I High Sens 12 Radiography Chest X-Ray - ED: 1 View and Read by ED Physician Diagnostic Testing: Clinical Impression(s) from Imaging Studies Brain CT 09/24/22 08:36 IMPRESSION: Chronic involutional changes of the brain. No acute abnormality is seen. N.B. : The above Results were Read Back by Torin Minaya MD to Emery Subramanian and understanding confirmed on 09/24/2022 08:59:00 (ET). Electronically Signed: Torin Minaya MD at 9:00 EDT , ADDENDUM: 09/24/2207 IMPRESSION: Chronic involutional changes of the brain. No acute abnormality is seen. N.B. : The above Results were Read Back by Torin Minaya MD to Emery Subramanian and understanding confirmed on 09/24/2022 08:59:00 (ET). Electronically Signed: Torin Minaya MD at 9:00 EDT , Head/Neck CTA 09/24/22 08:36 IMPRESSION: Normal CTA Head and neck with contrast. N.B. : The above Results were Read Back by Torin Minaya MD to Emery Subramanian and understanding confirmed on 09/24/2022 09:01:22 (ET). Electronically Signed: Torin Minaya MD at 9:02 EDT , ADDENDUM: 09/24/22 0909 IMPRESSION: Normal CTA Head and neck with contrast. N.B. : The above Results were Read Back by Torin Minaya MD to Emery Subramanian and understanding confirmed on 09/24/2022 09:01:22 (ET). Electronically Signed: Torin Minaya MD at 9:02 EDT , Management Discussion w/another healthcare provider: Hospitalist (Dr. Lamas), Radiologist and Other (Telestroke Neurologist) Discharge Plan Dx/Rx/DC Orders Clinical Impression: Left arm weakness, Left leg weakness, Hypertensive urgency, Symptoms of cerebrovascular accident Disposition Disposition: Acute Care Hospital [facility]
--- NOTE | 2022-09-24 08:36 | CT_ITS ---
STUDY: CTA HEAD AND NECK WITH CONTRAST REASON FOR EXAM: Female, 52 years old. Neuro deficit, acute, stroke suspected RADIATION DOSAGE (If Supplied By Facility): CTDIvol = ( 24.02 ) mGy, DLP = ( 695.97 ) mGycm TECHNIQUE: CT angiography was performed with a multi-detector CT scanner. Data acquisition was obtained from the skull base through the vertex following intravenous administration of IV 100mL [id number]-370. MIP images were reconstructed from the axial data set. Post-processing of the angiographic images was performed, with multiplanar reformation and 3D reconstruction. Individualized dose optimization techniques were used for this CT. COMPARISON: No relevant priors. FINDINGS: Normal bilateral petrous carotid arteries. There is calcified plaque formation of the right cavernous carotid artery, without a cross-sectional luminal stenosis. There is calcified plaque formation of the left cavernous carotid artery, without a cross-sectional luminal stenosis. Normal right A1 segments of the anterior cerebral artery. Normal left A1 segments of the anterior cerebral artery. Normal intact anterior communicating artery (ACOM). Normal bilateral A2 segments of the anterior cerebral arteries. Normal right M1 and M2 segments of the middle cerebral arteries, with a normal M1 bifurcation. Normal left M1 and M2 segments of the middle cerebral arteries, with a normal M1 bifurcation. Normal right posterior communicating artery (PCOM). Normal left posterior communicating artery (PCOM). Normal bilateral vertebral arteries. Normal basilar artery with a normal basilar bifurcation. The visualized bilateral superior cerebellar (SCA) arteries are normal. Normal bilateral P1, P2 and visualized P3 segments of the posterior cerebral arteries. There is no demonstrated aneurysm of the [place] of [place]. Sinusitis. AORTIC ARCH: Normal visualized aortic arch. Normal origins of the brachiocephalic, left common carotid, and left subclavian arteries. RIGHT CAROTID ARTERIES: Normal right common carotid artery (CCA). Normal right common carotid bulb. Normal origin of the right internal carotid (ICA) artery without a hemodynamically significant stenosis. Normal visualized cervical portion of the right internal carotid artery. Normal origin of the right external carotid artery (ECA). LEFT CAROTID ARTERIES: Normal left common carotid artery (CCA). Normal left common carotid bulb. Normal origin of the left internal carotid (ICA) artery without a hemodynamically significant stenosis. Normal visualized cervical portion of the left internal carotid artery. Normal origin of the left external carotid artery (ECA). VERTEBRAL ARTERIES: Normal bilateral vertebral arteries. CT/STROKE CTA Head AND Neck W/Con IMPRESSION: Normal CTA Head and neck with contrast. N.B. : The above Results were Read Back by Torin Minaya MD to Emery Subramanian and understanding confirmed on 09/24/2022 09:01:22 (ET). Electronically Signed: Torin Minaya MD at 9:02 EDT ,
--- NOTE | 2022-09-24 08:37 | ED.RN ---
first call to [facility]. pt in ct
[2022-09-24 08:47] LABS: Absolute Lymphocyte Count 2.52 X10^3/uL (0.83-4.51); Absolute Neutrophil Count 5.4 X10^3/uL (2.0-7.7); Basophil# 0.09 X10^3/uL; Eosinophil# 0.46 X10^3/uL; Hematocrit 41.7 % (37-47); Hemoglobin 13.3 g/dL (12.0-15.0); Lymphocyte # 2.52 X10^3/ul (0.83-4.51); Lymphocyte % 27.5 % (19-41); Mean Corp Hgb Conc 31.9 g/dL (32-36); Mean Corpuscular Hgb 27.7 pg (27.0-32.0); Mean Corpuscular Volume 86.7 fL (81-99); Mean Platelet Vol. 11.9 fl (6.2-12.0); Monocyte# 0.71 X10^3/uL; Monocyte% 7.7 % (0-10); NRBC Flagged by Analyzer 0 % (0-5); Neutrophil # 5.38 X10^3/uL (2.7-7.7); Neutrophil % 58.6 % (47-70); Platelet Count 322 K/mm3 (150-450); RBC Distribution Width CV 12.7 % (11.6-14.6); RBC Distribution Width SD 40.3 fl (35.1-43.9); Red Blood Count 4.81 M/mm3 (4.2-5.4); White Blood Count 9.2 K/mm3 (4.4-11.0)
--- NOTE | 2022-09-24 08:49 | ED.RN ---
second call to [facility].
[2022-09-24 09:02] LABS: Partial Thromboplast Time 27.8 Seconds (24.1-36.2)
[2022-09-24 09:05] LABS: Anion Gap 6 (5-15); BUN 18 mg/dL (7-18); BUN/Creat Ratio 13.6 RATIO (10-20); Calcium,Total 9.1 mg/dL (8.5-10.1); Chloride 107 mmol/L (98-107); Creatinine, Serum 1.32 mg/dL (0.55-1.02); EST Glomerular Filtration Rate 45 mL/min (>60); Est Glom Filt Rate - Afr Amer 54 mL/min (>60); Estimated Creatinine Clearance 38.53 ml/min; Glucose 95 mg/dL (74-106); Potassium 3.4 mmol/L (3.5-5.1); Sodium Level 139 mmol/L (136-145); Troponin-I HS 12 pg/mL (3.0-54.0)
--- NOTE | 2022-09-24 09:10 | ED.RN ---
intial reports from ems lkw was 7pm. pt reports to neurology was fine when she went to bed at 9pm. woke in night to use restroom fell x2 do discoordinated.
--- NOTE | 2022-09-24 09:38 | ED.RN ---
attempted to call daughter no answer. pt aware
--- NOTE | 2022-09-24 10:31 | PCM.HP.STD ---
HPI - General General Date of Admission: 09/24/22 HPI Narrative ZEKE RAY, is a 52 F who presents from home with weakness and falls. Her last known well was last night before 9 PM when she went to bed. This morning she woke up and as she was going to the bathroom she tripped and fell twice and she feels significant weakness in her lower extremities. Teleneurology was consulted in the ER and recommended further work-up for stroke. On their exam they obtained an NIH of 3 secondary to LOC question as well as drift in her left upper extremity and decreased sensation left upper extremity. CT of the head and neck was unremarkable. She did recently have an echo at the end of June with negative bubble study, normal EF and a stage I diastolic dysfunction. She notes that she has not been taking the Plavix as she was only given 15 days worth but she has been taking all of her other medications. And she has been using methamphetamines as recently as a few days ago. [facility] Medical History Alcohol abuse CVA (cerebral vascular accident) Depression Hepatitis B Hidradenitis suppurativa Hypertension Irregular heart beat Left axillary hidradenitis Smoker Tobacco use Vision loss of left eye Vision loss of right eye Home Medications aspirin 81 mg chewable tablet 81 mg PO DAILY blood thinner 07/02/22 [History Last Taken Unknown] atorvastatin 80 mg tablet 80 mg PO QHS cholesterol 07/02/22 [History Last Taken Unknown] hydrochlorothiazide 25 mg tablet 25 mg PO DAILY blood presure 07/02/22 [History Last Taken Unknown] lisinopril 20 mg tablet 20 mg PO DAILY blood pressure 07/02/22 [History Last Taken Unknown] metoprolol succinate 50 mg tablet,extended release 24 hr 50 mg PO DAILY blood pressure 07/02/22 [History Last Taken Unknown] clopidogrel 75 mg tablet 75 mg PO DAILY Check with primary doctor 09/24/22 [History Last Taken Unknown] multivitamin 1 cap PO DAILY supplement 09/24/22 [History Last Taken Unknown] Allergy/AdvReac Type Severity Reaction Status Date / Time Penicillins Allergy Hives Verified 09/24/22 08:50 Family History Mother CVA (cerebral vascular accident) CAD (coronary artery disease) Hypertension Heart disease Myocardial infarction Father CAD (coronary artery disease) Heart disease Hypertension Myocardial infarction Surgical History H/O umbilical hernia repair History of bilateral tubal ligation History of eye surgery Hx of cataract surgery S/P lens implant Status post glaucoma surgery Status post tonsillectomy and adenoidectomy Social History household members: none Smoking Status: Current every day smoker tobacco type: cigarettes how long ago did patient quit smoking: Patient reports 1/2 ppd cigarette tobacco use since teen. alcohol intake: never substance use type: does not use ROS Constitutional Constitutional: Denies chills, fatigue, fever(s) or malaise Eyes Eyes: Denies blurry vision ENT HEENT: Denies headache(s) or nasal discharge Cardiovascular Cardiovascular: Denies chest pain, dyspnea on exertion or syncope Respiratory/Chest Respiratory/Chest: Denies cough, shortness of breath at rest or shortness of breath with exertion Gastrointestinal Gastrointestinal: Denies constipation, diarrhea, nausea or vomiting Genitourinary Genitourinary: Denies dysuria Neurologic Neurologic: Reports focal weakness; Denies numbness or tremor(s) Psychiatric Psychiatric: Denies anxiety or depression Vital Signs Vital Signs Vital Signs: 09/24/22 08:36 09/24/22 08:51 09/24/22 08:52 Temperature 97.7 F L Temperature Source Oral Pulse Rate 67 63 Respiratory Rate 18 18 Blood Pressure 211/98 H 211/98 H Blood Pressure Mean 135 135 Pulse Ox 95 100 Oxygen Delivery Method Room Air Room Air Room Air 09/24/22 09:20 09/24/22 09:00 09/24/22 09:50 Temperature Temperature Source Pulse Rate 59 L 63 64 Respiratory Rate 16 18 16 Blood Pressure 201/92 H 187/86 H 199/105 H Blood Pressure Mean 128 119 136 Pulse Ox 97 98 99 Oxygen Delivery Method Room Air Room Air Room Air Weight Weight: 143 lb 8.335 oz Body Mass Index (BMI) 26.2 Physical Exam Narrative General: Alert, Oriented x3, Cooperative, No apparent distress HEENT: Atraumatic, PERRLA, EOMI, Normocephalic Oral: Moist Mucosa Neck: Supple, No JVD Lungs: Clear to auscultation, Normal air movement, No rhonchi, No wheeze, No rales Cardiovascular: Regular rate, Regular Rhythm, Normal S1, Normal S2, No murmurs Abdomen: Soft, Non Tender, Non-Distended, No Hepato-splenomegaly Extremities: No edema, Capillary Refill Less than 3 Seconds Skin: No rashes, No breakdown Musculoskeletal: No Tenderness to Palpation of Joints or Extremities Neurological: Cranial nerves II-XII grossly intact, Motor Exam 5/5 strength throughout, Sensory exam intact to light touch and pain Psych/Mental Status: Normal Affect, Appropriate Results Lab / Micro Data Result Diagrams: 09/24/22 08:20 09/24/22 08:20 Labs: Laboratory Results - last 24 hr 09/24/22 08:20: WBC 9.2, RBC 4.81, Hgb 13.3, Hct 41.7, MCV 86.7, MCH 27.7, MCHC 31.9 L, RDW Std Deviation 40.3, RDW Coeff of Jovani 12.7, Plt Count 322, MPV 11.9, Immature Gran % (Auto) 0.200, Neut % (Auto) 58.6, Lymph % (Auto) 27.5, [place] % (Auto) 7.7, Eos % (Auto) 5.0, Baso % (Auto) 1.0, Absolute Neuts (auto) 5.4, Absolute Lymphs (auto) 2.52, Nucleated RBC % 0 09/24/22 08:20: PT 13.0, INR 1.0, APTT 27.8 09/24/22 08:20: Sodium 139, Potassium 3.4 L, Chloride 107, Carbon Dioxide 26.0, Anion Gap 6, BUN 18, Creatinine 1.32 H, Estim Creat Clear Calc 38.53, Est GFR (MDRD) Af Amer 54 L, Est GFR (MDRD) Non-Af 45 L, BUN/Creatinine Ratio 13.6, Glucose 95, Calcium 9.1, Troponin I High Sens [address] 09/24/22 08:36 IMPRESSION: Chronic involutional changes of the brain. No acute abnormality is seen. N.B. : The above Results were Read Back by Torin Minaya MD to Emery Subramanian and understanding confirmed on 09/24/2022 08:59:00 (ET). Electronically Signed: Torin Minaya MD at 9:00 EDT , ADDENDUM: 09/24/22 0907 IMPRESSION: Chronic involutional changes of the brain. No acute abnormality is seen. N.B. : The above Results were Read Back by Torin Minaya MD to Emery Subramanian and understanding confirmed on 09/24/2022 08:59:00 (ET). Electronically Signed: Torin Minaya MD at 9:00 EDT , Chest X-Ray 09/24/22 08:36 IMPRESSION: I suspect a 1.4 cm x 1.2 cm cavitary nodule in the right lower lobe. Electronically Signed: Torin Minaya MD at 10:12 EDT , Head/Neck CTA 09/24/22 08:36 IMPRESSION: Normal CTA Head and neck with contrast. N.B. : The above Results were Read Back by Torin Minaya MD to Emery Subramanian and understanding confirmed on 09/24/2022 09:01:22 (ET). Electronically Signed: Torin Minaya MD at 9:02 EDT , ADDENDUM: 09/24/22 0909 IMPRESSION: Normal CTA Head and neck with contrast. N.B. : The above Results were Read Back by Torin Minaya MD to Emery Subramanian and understanding confirmed on 09/24/2022 09:01:22 (ET). Electronically Signed: Torin Minaya MD at 9:02 EDT , Assessment & Plan Assessment/Plan (1) Ischemic cerebrovascular accident (CVA): PLAN: Plan 1. Hypertensive urgency with CVA versus TIA/HTN/HLD ? She recently was admitted at the end of June for similar issue, at that time MRI was positive for small acute/subacute infarcts of the left occipital lobe ? We will allow permissive hypertension ? Can resume her home aspirin as well as Lipitor and Plavix but will hold her blood pressure medications ? MRI showed right lacunar infarct SOC was consulted recommend times one 300 mg dose of Plavix and then resuming her home Plavix as well as her aspirin ? They also do recommend on discharge with 30-day event monitor currently she is in normal sinus rhythm on the monitor. Further recommendations are pending the report 2. History of polysubstance abuse ? On her previous admission her urine drug screen was positive for amphetamines as well as MDMA and cannabis this was obtained secondary to encephalopathy ? She does admit to methamphetamines, will repeat another urine drug screen DVT: SCDs 75 minutes was spent on direct patient care as well as collaboration with healthcare professionals, documentation and chart review Charges/Coding Visit Charges Inpatient E&M: 18748 Init Hosp L3
--- NOTE | 2022-09-24 10:53 | ECHOL_ITS ---
Reason For Study: TIA/CVA Procedure This was a limited 2D transthoracic echocardiogram. Exam performed portable in patient room. Left Ventricle Normal LV size. Severe concentric left ventricular hypertrophy. The left ventricular ejection fraction is 75 %. Right Ventricle Normal right ventricle. Atria The left and right atria are normal. Mitral Valve Mild diffuse mitral valve thickening. Mild mitral annular calcification. Tricuspid Valve Normal tricuspid valve. Aortic Valve Normal aortic valve. Pulmonic Valve The pulmonic valve is not well visualized. Great Vessels Normal sized aortic root. Pericardium/Pleural No pericardial effusion. MMode/2D Measurements & Calculations LVIDd: 3.9 cm IVSd: 1.5 cm LAV(MOD-bp): 52.6 ml LVIDs: 2.5 cm LVPWd: 1.6 cm LAV(MOD-bp) Indexed: 31.8 ml/m2 FS: 36.1 % LAV(MOD-sp2): 60.7 ml LAV(MOD-sp4): 38.0 ml SV(MOD-sp4): 48.6 ml LVAd ap4: 25.0 cm2 LVAd ap2: 27.3 cm2 LVLd ap4: 7.5 cm LVLd ap2: 7.9 cm EDV(MOD-sp4): 68.6 ml EDV(MOD-sp2): 80.1 ml EDV(sp4-el): 71.2 ml EDV(sp2-el): 79.7 ml LVAs ap4: 11.3 cm2 LVAs ap2: 11.7 cm2 LVLs ap4: 6.0 cm LVLs ap2: 6.4 cm ESV(MOD-sp4): 20.0 ml ESV(MOD-sp2): 18.9 ml ESV(sp4-el): 18.1 ml ESV(sp2-el): 18.2 ml EF(MOD-sp4): 70.8 % EF(MOD-sp2): 76.3 % EF(sp4-el): 74.6 % SV(MOD-sp2): 61.1 ml SV(sp4-el): 53.1 ml LA A4 area: 14.7 cm2 RA A4 area: 12.9 cm2 ECHO/Echo, Limited Study Interpretation Summary This was a limited 2D transthoracic echocardiogram. Severe concentric left ventricular hypertrophy. The left ventricular ejection fraction is 75 %. Mild diffuse mitral valve thickening. Mild mitral annular calcification. Ordering Physician: Jeison Lamas Referring Physician: DANIELA STEWART Performed By: Razia Mcneil RCS
--- NOTE | 2022-09-24 10:53 | MRI_ITS ---
We are attempting to reach an attending provider to discuss findings. An addendum with communication details will be sent when the communication is complete. EXAM: MR HEAD WITHOUT INTRAVENOUS CONTRAST CLINICAL INDICATION: CVA TECHNIQUE: Multiplanar and multisequence MR images of the brain were obtained without intravenous contrast. This report was created using [employer] report generation technology. COMPARISON: MRI brain without contrast 07/03/2022. FINDINGS: BRAIN AND EXTRA-AXIAL SPACES: Small diffusion restriction in the right posterior periventricular white matter is not visible on the T2 FLAIR sequence. This is acute lacunar ischemic infarct. Previous acute linear ischemic infarcts in the left occipital lobe are not visible in today''s exam. Old ischemic infarct with cystic encephalomalacia and atrophy of the right occipital lobe is unchanged. Multiple T2 FLAIR hyperintensity in the white matter of both cerebral hemispheres are chronic confluent white matter ischemic changes. No intra- or extra-axial hemorrhage. No intracranial mass or mass effect. Posterior fossa structures are unremarkable. No hydrocephalus. Basal cisterns are patent. SELLA: Unremarkable. Normal sella turcica, pituitary gland, infundibular stalk, optic chiasm and hypothalamus. AUDITORY SYSTEM: Unremarkable. The internal auditory canals are patent. BONES/JOINTS: Unremarkable. No discrete lytic or blastic abnormalities. SINUSES: Unremarkable as visualized. Clear. MASTOID AIR CELLS: Unremarkable as visualized. Clear. ORBITS: Unremarkable as visualized. Both globes, extraocular muscles, optic nerves and retrobulbar fat appear unremarkable. VASCULATURE: Unremarkable as visualized. Normal flow voids in the major intracranial circulation. MRI/Brain without Contrast IMPRESSION: 1. Acute lacunar ischemic infarct in the right posterior periventricular white matter. 2. Previous acute linear ischemic infarcts in the left occipital lobe without obvious cystic encephalomalacia and atrophy are not obvious in today''s MRI scan. 3. Old ischemic infarct with cystic encephalomalacia and atrophy of the right occipital lobe is unchanged. 4. Confluent and chronic white matter ischemic changes in both cerebral hemispheres are unchanged. Electronically Signed: Emery Lynn MD at 12:58 EDT ,
[2022-09-24] MEDS: Clopidogrel Bisulfate 300 MG Tablet PO (18:53)
--- NOTE | 2022-09-24 22:00 | NURSING ---
DURING NIH ASSESSMENT HEMANIOPIA & LEFT SIDED DRIFT NOTED. 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 ALSO STATES LEFT-SIDED WEAKNESS IS CHRONIC. PT'S NIH INCREASED TO 3 D/T CHRONIC ISSUES. NO ACUTE FINDINGS.
[2022-09-24] MEDS: Atorvastatin Calcium 80 MG Tablet PO (22:18)
[2022-09-25] VITALS (9 sets, daily range): BP systolic 165–229; BP diastolic 104–114; PULSE 60–87; RESP 15–18; TEMP 36.4–36.7; O2SAT 96–99; BMI 27.1
[2022-09-25 07:41] LABS: Absolute Lymphocyte Count 1.01 X10^3/uL (0.83-4.51); Absolute Neutrophil Count 4.9 X10^3/uL (2.0-7.7); Basophil# 0.08 X10^3/uL; Basophil% 1.1 % (0-1); Eosinophil# 0.39 X10^3/uL; Eosinophils% 5.5 % (0-5); Hematocrit 41.2 % (37-47); Lymphocyte # 1.01 X10^3/ul (0.83-4.51); Lymphocyte % 14.3 % (19-41); Mean Corp Hgb Conc 31.6 g/dL (32-36); Mean Corpuscular Hgb 27.4 pg (27.0-32.0); Mean Corpuscular Volume 86.7 fL (81-99); Mean Platelet Vol. 11.5 fl (6.2-12.0); Monocyte# 0.66 X10^3/uL; Monocyte% 9.3 % (0-10); NRBC Flagged by Analyzer 0 % (0-5); Neutrophil % 69.5 % (47-70); Platelet Count 266 K/mm3 (150-450); RBC Distribution Width CV 12.6 % (11.6-14.6); RBC Distribution Width SD 39.8 fl (35.1-43.9); Red Blood Count 4.75 M/mm3 (4.2-5.4); White Blood Count 7.1 K/mm3 (4.4-11.0)
--- NOTE | 2022-09-25 07:58 | NURSING ---
inadequate staffing 10/19 with only 1 boom boss for entire unit. emergency charting utilized this shift
[2022-09-25 08:27] LABS: Anion Gap 5 (5-15); BUN 16 mg/dL (7-18); BUN/Creat Ratio 13.4 RATIO (10-20); Calcium,Total 8.6 mg/dL (8.5-10.1); Chloride 109 mmol/L (98-107); Cholesterol 144 mg/dL (200); Creatinine, Serum 1.19 mg/dL (0.55-1.02); EST Glomerular Filtration Rate 50 mL/min (>60); Est Glom Filt Rate - Afr Amer 61 mL/min (>60); Estimated Creatinine Clearance 40.78 ml/min; Glucose 92 mg/dL (74-106); High Density Lipoprotein 53 mg/dL; Potassium 3.7 mmol/L (3.5-5.1); Sodium Level 139 mmol/L (136-145); Triglycerides 63 mg/dL; Very Low Density Lipoprotein 13 mg/dL (5-40)
--- NOTE | 2022-09-25 10:17 | PCM.PN.HOSP ---
Reason for Visit Reason for Visit: Diagnoses Cerebral infarction, unspecified (09/24/22) Follow-up for right lacunar infarct. Objective Data Objective Data Vital Signs: Vital Signs Temp Pulse Resp BP Pulse Ox O2 Del Method 97.6 F L 66 16 165/114 H 99 Room Air 09/25/22 05:49 09/25/22 05:49 09/25/22 05:49 09/25/22 05:49 09/25/22 07:57 09/25/22 07:57 Oxygen Delivery Method Room Air Weight: 143 lb 4.807 oz Body Mass Index (BMI) 27.1 Intake & Output: Intake and Output for Last 24 Hours 09/23/22 09/24/22 09/25/22 23:59 23:59 23:59 Intake Total 170 / 170 480 / 480 Balance 170 / 170 480 / 480 Lab / Micro Data Result Diagrams: 09/25/22 07:05 09/25/22 07:05 Labs: Laboratory Results - last 24 hr 09/25/22 07:05: WBC 7.1, RBC 4.75, Hgb 13.0, Hct 41.2, MCV 86.7, MCH 27.4, MCHC 31.6 L, RDW Std Deviation 39.8, RDW Coeff of Jovani 12.6, Plt Count 266, MPV 11.5, Immature Gran % (Auto) 0.300, Neut % (Auto) 69.5, Lymph % (Auto) 14.3 L, [place] % (Auto) 9.3, Eos % (Auto) 5.5 H, Baso % (Auto) 1.1 H, Absolute Neuts (auto) 4.9, Absolute Lymphs (auto) 1.01, Nucleated RBC % 0 09/25/22 07:05: Sodium 139, Potassium 3.7, Chloride 109 H, Carbon Dioxide 25.0, Anion Gap 5, BUN 16, Creatinine 1.19 H, Estim Creat Clear Calc 40.78, Est GFR (MDRD) Af Amer 61, Est GFR (MDRD) Non-Af 50 L, BUN/Creatinine Ratio 13.4, Glucose 92, Calcium 8.6, Triglycerides 63, Cholesterol 144, LDL Cholesterol 78, VLDL Cholesterol 13, HDL Cholesterol 53 Radiography Diagnostic Testing: Radiology Impression Brain MRI 09/24/22 10:53 IMPRESSION: 1. Acute lacunar ischemic infarct in the right posterior periventricular white matter. 2. Previous acute linear ischemic infarcts in the left occipital lobe without obvious cystic encephalomalacia and atrophy are not obvious in today''s MRI scan. 3. Old ischemic infarct with cystic encephalomalacia and atrophy of the right occipital lobe is unchanged. 4. Confluent and chronic white matter ischemic changes in both cerebral hemispheres are unchanged. Electronically Signed: Emery Lynn MD at 12:58 EDT , ADDENDUM: 09/24/22 1315 IMPRESSION: 1. Acute lacunar ischemic infarct in the right posterior periventricular white matter. 2. Previous acute linear ischemic infarcts in the left occipital lobe without obvious cystic encephalomalacia and atrophy are not obvious in today''s MRI scan. 3. Old ischemic infarct with cystic encephalomalacia and atrophy of the right occipital lobe is unchanged. 4. Confluent and chronic white matter ischemic changes in both cerebral hemispheres are unchanged. N.B. : The above Results were Read Back by Emery Lynn MD to Adams Mchugh MD, and understanding confirmed on 09/24/2022 13:08:42 (ET). Electronically Signed: Emery Lynn MD at 12:58 EDT , Physical Exam Narrative Seen and examined in the morning. Patient sad and crying. She stated she wants to go home. I started back PT and OT recommending SNF. Physical exam General: Alert, Oriented x3, Cooperative HEENT: Atraumatic, PERRLA, EOMI, Normocephalic. Bilateral vision loss of left eye and right eye as per past history Oral: No Gingival or Mucosal Lesions/ Ulcerations Neck: Supple, No JVD, Negative Carotid Bruits Lungs: Air entry diminished in bilateral lung bases. No crepitation/rhonchi Cardiovascular: Regular rate, Regular Rhythm, Normal S1, Normal S2, No murmurs Abdomen: Bowel Sounds Present, Soft, Non Tender, Non-Distended : No renal angle tenderness. No suprapubic tenderness. Extremities: No edema, Capillary Refill Less than 3 Seconds Skin: No rashes, No breakdown Musculoskeletal: No Tenderness to Palpation of Joints or Extremities, left leg 4/5 at major joints. Neurological: Cranial nerves II-XII grossly intact, DTR 2+/4. Psych/Mental Status: Flat affect. Sad. Assessment & Plan Assessment/Plan (1) Ischemic cerebrovascular accident (CVA): PLAN: Plan 1. Acute right lacunar ischemic infarct in the right posterior periventricular white matter. Patient is being admitted in PCU. MRI brain shows right posterior lacunar infarct. She recently had left occipital lobe infarct in June 2022. Patient on aspirin Lipitor and Plavix. Stroke protocol with PT OT and speech evaluation. Patient will need 30-day event monitor. Sinus rhythm on monitor. PT and OT recommending SNF, pre-CERT pending. Patient refusing for SNF. SOC was consulted and recommended 21 days of DUAL antiplatelet agent and statin and then continue aspirin and statin indefinitely. 2D echo shows EF 75% with severe concentric LVH. Left and right atria are normal. Normal RV. 2. Hypertensive urgency, with history of hypertension and dyslipidemia: Blood pressure control as per stroke guidelines. 3. History of polysubstance abuse ? On her previous admission her urine drug screen was positive for amphetamines as well as MDMA and cannabis this was obtained secondary to encephalopathy. U tox has been ordered. DVT: SCDs Clinical Impression(s) from Imaging Studies Brain CT 09/24/22 08:36 IMPRESSION: Chronic involutional changes of the brain. No acute abnormality is seen. N.B. : The above Results were Read Back by Torin Minaya MD to Emery Subramanian and understanding confirmed on 09/24/2022 08:59:00 (ET). Electronically Signed: Torin Minaya MD at 9:00 EDT , ADDENDUM: 09/24/22 0907 IMPRESSION: Chronic involutional changes of the brain. No acute abnormality is seen. N.B. : The above Results were Read Back by Torin Minaya MD to Emery Reodica and understanding confirmed on 09/24/2022 08:59:00 (ET). Electronically Signed: Torin Minaya MD at 9:00 EDT , Chest X-Ray 09/24/22 08:36 IMPRESSION: I suspect a 1.4 cm x 1.2 cm cavitary nodule in the right lower lobe. Electronically Signed: Torin Minaya MD at 10:12 EDT , Head/Neck CTA 09/24/22 08:36 IMPRESSION: Normal CTA Head and neck with contrast. N.B. : The above Results were Read Back by Torin Minaya MD to Emery Moris and understanding confirmed on 09/24/2022 09:01:22 (ET). Electronically Signed: Torin Minaya MD at 9:02 EDT , ADDENDUM: 09/24/22 0909 IMPRESSION: Normal CTA Head and neck with contrast. N.B. : The above Results were Read Back by Torin Minaya MD to Emery Reodica and understanding confirmed on 09/24/2022 09:01:22 (ET). Electronically Signed: Torin Minaya MD at 9:02 EDT , Brain MRI 09/24/22 10:53 IMPRESSION: 1. Acute lacunar ischemic infarct in the right posterior periventricular white matter. 2. Previous acute linear ischemic infarcts in the left occipital lobe without obvious cystic encephalomalacia and atrophy are not obvious in today''s MRI scan. 3. Old ischemic infarct with cystic encephalomalacia and atrophy of the right occipital lobe is unchanged. 4. Confluent and chronic white matter ischemic changes in both cerebral hemispheres are unchanged. Electronically Signed: Emery Lynn MD at 12:58 EDT , ADDENDUM: 09/24/22 1315 IMPRESSION: 1. Acute lacunar ischemic infarct in the right posterior periventricular white matter. 2. Previous acute linear ischemic infarcts in the left occipital lobe without obvious cystic encephalomalacia and atrophy are not obvious in today''s MRI scan. 3. Old ischemic infarct with cystic encephalomalacia and atrophy of the right occipital lobe is unchanged. 4. Confluent and chronic white matter ischemic changes in both cerebral hemispheres are unchanged. N.B. : The above Results were Read Back by Emery Lynn MD to Adams Mchugh MD, and understanding confirmed on 09/24/2022 13:08:42 (ET). Echocardiogram 09/24/22 10:53 Interpretation Summary This was a limited 2D transthoracic echocardiogram. Severe concentric left ventricular hypertrophy. The left ventricular ejection fraction is 75 %. Mild diffuse mitral valve thickening. Mild mitral annular calcification. Charges/Coding Visit Charges Inpatient E&M: 58682 Subs Hosp L2
[2022-09-25 11:03] LABS: Thyroid Stim Hormone (TSH) 1.03 uIU/mL (0.358-3.74)
--- NOTE | 2022-09-25 11:05 | CASEMGMT ---
SW was informed by therapy that patient would benefit from Inpatient Rehab Unit. SW met with patient. Introduced self and role at [facility]. Patient was tearful as she was hoping to go home. Patient is agreeable to going to Inpatient Rehab at [facility]. She declined a list of rehab units. Patient was also upset that she cannot get a hold of anyone. She was trying to reach her daughter Yashira. SW told her SW will see if SW can reach her. SW did make referral to rehab unit and they can take patient pending insurance approval. Plan: Inpatient Rehab Unit pending insurance approval. Elvia Benavidez PASSENGER ELEVATOR OPERATOR SOPHIA
[2022-09-25] MEDS: Clopidogrel Bisulfate 75 MG Tablet PO (11:08)
[2022-09-25] MEDS: Aspirin 81 MG TAB.CHEW PO (11:08)
[2022-09-25 11:26] LABS: Hemoglobin A1c 5.3 % (3.8-5.6)
--- NOTE | 2022-09-25 12:03 | CASEMGMT ---
SW attempted to call patient's friend Demetrius and it was the wrong number. SW tried to call patient's daughter, but it went right to a voice mailbox that has not been set up yet. Per RN patient's daughter is a corporation secretary at [employer] and she works [employer]. Elvia Benavidez MSW SOPHIA
[2022-09-25 12:35] LABS: Vitamin B12 678 pg/mL (211-911)
--- NOTE | 2022-09-25 12:43 | CASEMGMT ---
SW tried to call patient's daughter again with the same result. Voice mailbox that has not been set up. Elvia Benavidez HOUSECALLS NURSE SOPHIA
--- NOTE | 2022-09-25 14:40 | CASEMGMT ---
Social Work SW presented to room and pt's S.O., Demetrius, was present. SW introduced self and role. Pt appeared upset. SW offered to speak with pt 1:1 or can return at a later time. Pt agreeable to speak now and S.O. agreeable to exit room. SW explained this worker will follow pt to RU and assist with DC plans, support needs during stay. SW offered for pt to answer any questions for pt, listen to anything pt wanted to talk about. Pt tearful and stated S.O. is a piece of shit and treats me like shit. SW explored further. Pt reports S.O. is verbally abusive, cusses at her, calls her names, talks down to her. Pt and SO do not live together, but have been in a relationship for two years. Pt reports the past year the SO became mean to pt. Pt reports to remaining in a relationship with SO because that is all I have. Pt states her siblings have , her oldest dtr was an alcoholic and became incapacitated d/t alcohol and now lives in a SNF, son lives nearby but they do not have a relationship, and youngest dtr lives in town, has a relationship with, but is spoiled. Pt states none of the children's fathers have maintained a relationship with pt. Youngest dtr's father has . SW explored finances, housing, transportation, food information. Pt reports to living in apartment through [facility] [facility], thus rent is paid for by [employer]; electric is covered by [employer] program, and pt has to pay $10/mo. However, pt reports to having electric shut off multiple times d/t to not being able to pay the bill or pt gets behind a month on payment and has to pay $20/mo. Pt has a prepaid cell phone, but it runs out of minutes frequently d/t lack of payment. The cell phone is currently turned off at pt's house. Pt has no car, neither does SO, and uses friends or dtr for transportation. SW inquired about cab pass or public transport. Pt states she qualifies but cab passes are $2 and she does not have the money. SW to provide resources for food pantries. Pt is already active with [employer]. SW inquired about alcohol use: none; tobacco use: pack of cigarettes/day, and dtr or SO buys for pt. Pt reports to substance use of meth every day. Pt unsure how much she snorts and how much it costs. Pt states she 'trades money or items to get the money to purchase the meth. SO also buys meth for pt. Pt reports to smoking marijuana daily, but that doesn't cost any money and is really easy to get. SW inquired if pt sells her body for money or drugs. Pt adamantly denies and states I have a boyfriend. Pt could not provide any further detail on money or drug use. SW inquired if pt wants to quit drug use. Pt agrees she does but has participated in [facility] program multiple times before and it didn't work nor did pt like it. Pt is not interested in completing another residential program. SW offered IOP and if pt would be interested in speaking with a rep from an agency about the program. Pt is agreeable to speaking with someone, but not fully committed to attending the program at this time. SW to follow up with the Treatment Navigator at [facility] if pt can be seen during RU stay. SW completed PHQ-9 per protocol: . Pt reports to taking Prozac years ago and seeing a psychiatrist, as pt does not have PCP. Pt unable to recall details, but reports Prozac was beneficial. Pt agreeable to begin medication for mood, if orders. SW to update Physician. Pt denied thoughts of harming self or others, stating her protective factor are her three grandchildren (dtmatt, Yashira's children). SW explored further. Pt reports the children stay with pt on the weekends. SW inquired if pt uses drugs while caring for grandchildren. pt replies, sometimes. Pt explains grandchildren are 10 year old twins, Erlin and Rah, and 8 year old Jose. Dtr/gdkids live in [place] but attend [employer]. Pt states dtr, Yashira, works in the ED on manager fund, but unsure of title. SW inquired about dtr's childcare. Pt states children's fathers are not involved, and either children stay overnight at pt's house or dtr's cousin, Deidre, watches the children. SW revisited drug use with children present, but pt states no, if my daughter even suspects I'm high, she won't let me around them. Pt then expressed she was getting hot, became agitated in chair, requesting fresh ice water and wanting to get into bed. SW to provide pt ice water but to put healthcare network consultant-light for assistance into bed. SW thanked pt for speaking with this worker and looking forward to seeing pt on RU. Pt then attempted to get out of chair on own, but SW redirected and educated pt for putting healthcare network consultant-light and stay in chair until staff came to assist her. Pt agreed. SW will continue to follow pt on RU and coordinate DC needs. SW attempted to contact dtr but it goes straight to voicemail with the recording that the voicemail has not been set up. SW to continue to attempt. Deirdre Arroyo, JANET PATEL
--- NOTE | 2022-09-25 16:40 | NURSING ---
emergency charting 09/25 7a-7p
[2022-09-25] MEDS: Atorvastatin Calcium 80 MG Tablet PO (22:26)
[2022-09-26] VITALS (10 sets, daily range): BP systolic 112–227; BP diastolic 79–153; PULSE 61–78; RESP 14–18; TEMP 36.5–36.7; O2SAT 95–100; BMI 27.1
[2022-09-26] MEDS: 0.9% Saline Lock 10 ML Syringe IV (09:30)
[2022-09-26] MEDS: Labetalol (Prefilled) 20 MG/4 ML IV (09:31)
[2022-09-26] MEDS: Aspirin 81 MG TAB.CHEW PO (09:32)
[2022-09-26] MEDS: Clopidogrel Bisulfate 75 MG Tablet PO (09:32)
[2022-09-26] MEDS: Metoprolol(XL)Succ 50 MG Tablet PO (09:41)
[2022-09-26] MEDS: hydroCHLOROthiazide 25 MG Tablet PO (09:41)
[2022-09-26] MEDS: Acetaminophen 325 MG Tablet 650 MG PO ×2 (10:08→14:30)
--- NOTE | 2022-09-26 10:20 | PCM.PN.HOSP ---
Reason for Visit Reason for Visit: Diagnoses Cerebral infarction, unspecified (09/25/22) Follow-up for infarction with hypertensive urgency blood pressure was 227/105 in the morning. Objective Data Objective Data Vital Signs: Vital Signs Temp Pulse Resp BP Pulse Ox O2 Del Method 98 F 76 15 112/105 H 99 Room Air 09/26/22 08:41 09/26/22 09:41 09/26/22 08:41 09/26/22 09:41 09/26/22 08:50 09/26/22 08:50 Oxygen Delivery Method Room Air Weight: 143 lb 4.807 oz Body Mass Index (BMI) 27.1 Intake & Output: Intake and Output for Last 24 Hours 09/24/22 09/25/22 09/26/22 23:59 23:59 23:59 Intake Total 170 / 170 730 / 730 Balance 170 / 170 730 / 730 Lab / Micro Data Result Diagrams: 09/25/22 07:05 09/25/22 07:05 Labs: Laboratory Results - last 24 hr 09/25/22 07:05: TSH 1.03 09/25/22 07:05: Hemoglobin A1c 5.3 09/25/22 11:05: Vitamin B12 678 Radiography Diagnostic Testing: Radiology Impression Echocardiogram 09/24/22 10:53 Interpretation Summary This was a limited 2D transthoracic echocardiogram. Severe concentric left ventricular hypertrophy. The left ventricular ejection fraction is 75 %. Mild diffuse mitral valve thickening. Mild mitral annular calcification. Ordering Physician: Jeison Lamas Referring Physician: DANIELA STEWART Performed By: Razia Mcneil RCS Physical Exam Narrative Seen and examined in the morning. BP was very high. Heart rate controlled. Complained of frontal headache. Denies history of migraine headache or other chronic headache. She stated she wants to go home. I started back PT and OT recommending SNF. Physical exam General: Alert, Oriented x3, Cooperative HEENT: Atraumatic, PERRLA, EOMI, Normocephalic. No acute tenderness over head and neck region. 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 Right eye she is very blurry. Oral: Oral mucosa moist. No Gingival or Mucosal Lesions/ Ulcerations Neck: Supple, No JVD, Negative Carotid Bruits Lungs: Air entry diminished in bilateral lung bases. No crepitation/rhonchi Cardiovascular: Regular rate, Regular Rhythm, Normal S1, Normal S2, No murmurs Abdomen: Bowel Sounds Present, Soft, Non Tender, Non-Distended : No renal angle tenderness. No suprapubic tenderness. Extremities: No edema, Capillary Refill Less than 3 Seconds Skin: No rashes, No breakdown Musculoskeletal: No Tenderness to Palpation of Joints or Extremities, left leg 4/5 at major joints. Neurological: Cranial nerves II-XII grossly intact, DTR 2+/4. Psych/Mental Status: Flat affect. Sad. Assessment & Plan Assessment/Plan (1) Ischemic cerebrovascular accident (CVA): PLAN: Plan 1. Acute right lacunar ischemic infarct in the right posterior periventricular white matter. Patient is being admitted in PCU. MRI brain shows right posterior lacunar infarct. She recently had left occipital lobe infarct in June 2022. Patient on aspirin Lipitor and Plavix. Stroke protocol with PT OT and speech evaluation. Patient will need 30-day event monitor. Sinus rhythm on monitor. PT and OT recommending SNF, pre-CERT pending. Patient refusing for SNF. SOC was consulted and recommended 21 days of DUAL antiplatelet agent and statin and then continue aspirin and statin indefinitely. 2D echo shows EF 75% with severe concentric LVH. Left and right atria are normal. Normal RV. 09/26: Patient complained of headache. Antihypertensive medication and Tylenol given. Pending pre-CERT. Therapies recommended SNF. Patient wants to go home but states she is high risk for fall. 2. Hypertensive urgency, with history of hypertension and dyslipidemia: Blood pressure control as per stroke guidelines. 09/26: Blood pressure was 227/105. 20 mg IV labetalol was given and blood pressure dropped to 112/105. Antihypertensive medicine resumed with holding parameters. 3. History of polysubstance abuse ? On her previous admission her urine drug screen was positive for amphetamines as well as MDMA and cannabis this was obtained secondary to encephalopathy. U tox has been ordered. DVT: SCDs Clinical Impression(s) from Imaging Studies Brain CT 09/24/22 08:36 IMPRESSION: Chronic involutional changes of the brain. No acute abnormality is seen. N.B. : The above Results were Read Back by Torin Minaya MD to Emery Subramanian and understanding confirmed on 09/24/2022 08:59:00 (ET). Electronically Signed: Torin Minaya MD at 9:00 EDT , ADDENDUM: 09/24/22 0907 IMPRESSION: Chronic involutional changes of the brain. No acute abnormality is seen. N.B. : The above Results were Read Back by Torin Minaya MD to Emery Subramanian and understanding confirmed on 09/24/2022 08:59:00 (ET). Electronically Signed: Torin Minaya MD at 9:00 EDT , Chest X-Ray 09/24/22 08:36 IMPRESSION: I suspect a 1.4 cm x 1.2 cm cavitary nodule in the right lower lobe. Electronically Signed: Torin Minaya MD at 10:12 EDT , Head/Neck CTA 09/24/22 08:36 IMPRESSION: Normal CTA Head and neck with contrast. N.B. : The above Results were Read Back by Torin Minaya MD to Emery Subramanian and understanding confirmed on 09/24/2022 09:01:22 (ET). Electronically Signed: Torin Minaya MD at 9:02 EDT , ADDENDUM: 09/24/22 0909 IMPRESSION: Normal CTA Head and neck with contrast. N.B. : The above Results were Read Back by Torin Minaya MD to Emery Subramanian and understanding confirmed on 09/24/2022 09:01:22 (ET). Electronically Signed: Torin Minaya MD at 9:02 EDT , Brain MRI 09/24/22 10:53 IMPRESSION: 1. Acute lacunar ischemic infarct in the right posterior periventricular white matter. 2. Previous acute linear ischemic infarcts in the left occipital lobe without obvious cystic encephalomalacia and atrophy are not obvious in today''s MRI scan. 3. Old ischemic infarct with cystic encephalomalacia and atrophy of the right occipital lobe is unchanged. 4. Confluent and chronic white matter ischemic changes in both cerebral hemispheres are unchanged. Electronically Signed: Emery Lynn MD at 12:58 EDT , ADDENDUM: 09/24/22 1315 IMPRESSION: 1. Acute lacunar ischemic infarct in the right posterior periventricular white matter. 2. Previous acute linear ischemic infarcts in the left occipital lobe without obvious cystic encephalomalacia and atrophy are not obvious in today''s MRI scan. 3. Old ischemic infarct with cystic encephalomalacia and atrophy of the right occipital lobe is unchanged. 4. Confluent and chronic white matter ischemic changes in both cerebral hemispheres are unchanged. N.B. : The above Results were Read Back by Emery Lynn MD to Adams Mchugh MD, and understanding confirmed on 09/24/2022 13:08:42 (ET). Echocardiogram 09/24/22 10:53 Interpretation Summary This was a limited 2D transthoracic echocardiogram. Severe concentric left ventricular hypertrophy. The left ventricular ejection fraction is 75 %. Mild diffuse mitral valve thickening. Mild mitral annular calcification. Charges/Coding Visit Charges Inpatient E&M: 47034 Subs Hosp L2
[2022-09-26] MEDS: Lisinopril 20 MG Tablet PO (12:14)
[2022-09-26] MEDS: Multivitamins,Therapeutic Tablet 1 TABLET PO (12:14)
[2022-09-26 14:01] LABS: Amphetamine Urine VISTA POSITIVE (<1000 ng/mL); Barbiturate Urine VISTA NEGATIVE (< 200 ng/mL); Benzodiazepine Urine VISTA NEGATIVE (< 200 ng/mL); Cocaine Urine VISTA NEGATIVE (< 300 ng/mL); Ecstacy Urine VISTA NEGATIVE (< 500 ng/mL); Methadone Urine VISTA NEGATIVE (< 300 ng/mL); PCP Urine VISTA NEGATIVE (< 25 ng/mL); THC Urine VISTA POSITIVE (< 50 ng/mL); Vista UDS pH Range 7
[2022-09-26] MEDS: Atorvastatin Calcium 80 MG Tablet PO (22:39)
[2022-09-27 01:30] VITALS: BP 139/77; PULSE 60; RESP 16; TEMP 36.7; O2SAT 98
[2022-09-27 05:30] VITALS: BP 146/83; PULSE 64; RESP 16; TEMP 36.7; O2SAT 97
[2022-09-27 07:25] VITALS: O2SAT 95
[2022-09-27 08:26] VITALS: BP 130/73; PULSE 57; RESP 14; TEMP 36.6; O2SAT 96
[2022-09-27 08:39] VITALS: BP 130/73; PULSE 57
[2022-09-27] MEDS: Clopidogrel Bisulfate 75 MG Tablet PO (08:39)
[2022-09-27] MEDS: hydroCHLOROthiazide 25 MG Tablet PO (08:39)
[2022-09-27] MEDS: Lisinopril 20 MG Tablet PO (08:39)
[2022-09-27] MEDS: Aspirin 81 MG TAB.CHEW PO (08:39)
[2022-09-27] MEDS: Metoprolol(XL)Succ 50 MG Tablet PO (08:39)
[2022-09-27] MEDS: Multivitamins,Therapeutic Tablet 1 TABLET PO (08:40)
--- NOTE | 2022-09-27 10:20 | DCINST_ITS ---
Discharge Instructions Diet Discharge Diet: 2000 mg Sodium Diet Activity Discharge Activity: Return to Normal Activity Weight Bearing Status: Weight bearing as tolerated Dressing / Incision Call your doctor if you observe: Fever of 101 or Higher, Coldness, Increased Pain, Numbness or Tingling, Change in Color, Inability to urinate, Inability to have a bowel movement, Using more than 1 pad per hour, Shortness of breath, Dizziness, Fainting spells, Swelling in the ankles, Chest pain, Prolonged hiccupping, Increased palpitations (irregular heartbeat) and Calf discomfort Follow Up Care When: IN 2 WEEKS Test Results: Test results from this visit will be discussed in further detail at your follow- up appointment, if applicable. Discharge Plan Admission Admit Date/Time: 09/25/22 10:53 Primary Reason for Your Visit: Acute ischemic stroke. Attending Provider: Roger Alves Primary Care Provider: Desean Bonilla Consulting Providers: Jeison Lamas Discharge Orders/Prescriptions Prescriptions: New polyethylene glycol 3350 17 gram Powder In Packet 17 g PO DAILY Qty: 0 0RF nicotine 21 mg/24 hr Patch 24 Hour 21 mg transdermal DAILY Qty: 30 0RF Continued atorvastatin 80 mg tablet 80 mg PO QHS Label Comments: TAKE 1 TABLET BY MOUTH EVERY DAY AT BEDTIME metoprolol succinate 50 mg tablet extended release 24 hr 50 mg PO DAILY Label Comments: TAKE 1 TABLET BY MOUTH EVERY DAY lisinopril 20 mg tablet 20 mg PO DAILY Label Comments: TAKE 1 TABLET BY MOUTH EVERY DAY aspirin 81 mg tablet,chewable 81 mg PO DAILY Label Comments: TAKE 1 TABLET BY MOUTH EVERY DAY hydrochlorothiazide 25 mg tablet 25 mg PO DAILY Label Comments: TAKE 1 TABLET BY MOUTH EVERY DAY clopidogrel 75 mg tablet 75 mg PO DAILY multivitamin Capsule 1 cap PO DAILY Other Ambulatory Orders: 30 Day Event Recorder Preventi (Urgent) Timeframe: 1 Day Facility: [facility] - Location: Cardiovascular Services Ordered By: Dr. Roger Alves Referrals / Follow Up: Desean Bonilla MD [Primary Care Provider] - Desean Bonilla MD [[facility]] - Disposition Disposition (needs filled in before D/C Order can be placed[facility]
[2022-09-27] MEDS: Bisacodyl 5 MG Tablet 10 MG PO (12:04)
[2022-09-27] MEDS: Polyethylene Glycol 3350 17 GM PACKET PO (12:04)
[2022-09-27 12:07] VITALS: BP 149/79; PULSE 56; RESP 14; TEMP 36.6; O2SAT 100
--- NOTE | 2022-09-27 14:04 | PCM.PN.HOSP ---
Reason for Visit Reason for Visit: Diagnoses Cerebral infarction, unspecified (09/25/22) Objective Data Objective Data Vital Signs: Vital Signs Temp Pulse Resp BP Pulse Ox O2 Del Method 98 F 56 L 14 149/79 H 100 Room Air 09/27/22 12:07 09/27/22 12:07 09/27/22 12:07 09/27/22 12:07 09/27/22 12:07 09/27/22 12:07 Oxygen Delivery Method Room Air Weight: 143 lb 4.807 oz Body Mass Index (BMI) 27.1 Intake & Output: Intake and Output for Last 24 Hours 09/25/22 09/26/22 09/27/22 23:59 23:59 23:59 Intake Total 730 / 730 930 / 1370 890 / 890 Balance 730 / 730 930 / 1370 890 / 890 Lab / Micro Data Result Diagrams: 09/25/22 07:05 09/25/22 07:05
--- NOTE | 2022-09-27 15:27 | DS.PCM_ITS ---
Providers Date of Admission: 09/25/22 Date of Discharge: 09/27/22 Primary Care Physician: Dr. Desean Bonilla MD Reason For Visit: TIA VS CVA Diagnosis Discharge Diagnosis (1) Ischemic cerebrovascular accident (CVA): Status: Acute Code(s): I63.9 - Cerebral infarction, unspecified Plan 52-year-old female was admitted with weakness and fall. LK W was 9 PM, night before admission on 09/24/2022 1. Acute right lacunar ischemic infarct in the right posterior periventricular white matter. Patient is being admitted in PCU. MRI brain shows right posterior lacunar infarct. She recently had left occipital lobe infarct in June 2022. Patient on aspirin Lipitor and Plavix. Stroke protocol with PT OT and speech evaluation. Patient will need 30-day event monitor. Sinus rhythm on monitor. PT and OT recommending SNF, pre-CERT pending. Patient refusing for SNF. SOC was consulted and recommended 21 days of DUAL antiplatelet agent and statin and then continue aspirin and statin indefinitely. 2D echo shows EF 75% with severe concentric LVH. Left and right atria are normal. Normal RV. 09/26: Patient complained of headache. Antihypertensive medication and Tylenol given. Pending pre-CERT. Therapies recommended SNF. Patient wants to go home but states she is high risk for fall. 09/27: Patient was evaluated by physical therapist and okay to discharge home with home health therapy. Notified to family independence case manager to set up home PT from 10/08/2022. Patient on aspirin Plavix and high intensity statin. Follow-up with neurologist 2. Hypertensive urgency, with history of hypertension and dyslipidemia: Blood pressure control as per stroke guidelines. 09/26: Blood pressure was 227/105. 20 mg IV labetalol was given and blood pressure dropped to 112/105. Antihypertensive medicine resumed with holding parameters. 09/27: Patient blood pressure is better controlled, and 130s to 140s. Continue HCTZ lisinopril and metoprolol. 3. History of polysubstance abuse ? On her previous admission her urine drug screen was positive for amphetamines as well as MDMA and cannabis this was obtained secondary to encephalopathy. U tox positive for amphetamine and cannabinoids. Prescription for nicotine sent to patient's pharmacy. DVT: SCDs Discharge medication reconciliation done. Discharge follow-up instructions completed. Discharge process discussed with the patient and all questions were answered to patient's satisfaction. 30-day event monitor approved by Dr. Cramer Total time spent, exact 35 minutes on discharge meds reconciliation, examination, coordination of care with nurses and ancillary staff, review of imaging and blood test and discussion with the patient on follow-up instru ctions. Clinical Impression(s) from Imaging Studies Brain CT 09/24/22 08:36 IMPRESSION: Chronic involutional changes of the brain. No acute abnormality is seen. N.B. : The above Results were Read Back by Torin Minaya MD to Emery Subramanian and understanding confirmed on 09/24/2022 08:59:00 (ET). Electronically Signed: Torin Minaya MD at 9:00 EDT , ADDENDUM: 09/24/22 0907 IMPRESSION: Chronic involutional changes of the brain. No acute abnormality is seen. N.B. : The above Results were Read Back by Torin Minaya MD to Emery Subramanian and understanding confirmed on 09/24/2022 08:59:00 (ET). Electronically Signed: Torin Minaya MD at 9:00 EDT , Chest X-Ray 09/24/22 08:36 IMPRESSION: I suspect a 1.4 cm x 1.2 cm cavitary nodule in the right lower lobe. Electronically Signed: Torin Minaya MD at 10:12 EDT , Head/Neck CTA 09/24/22 08:36 IMPRESSION: Normal CTA Head and neck with contrast. N.B. : The above Results were Read Back by Torin Minaya MD to Emery Subramanian and understanding confirmed on 09/24/2022 09:01:22 (ET). Electronically Signed: Torin Minaya MD at 9:02 EDT , ADDENDUM: 09/24/22 0909 IMPRESSION: Normal CTA Head and neck with contrast. N.B. : The above Results were Read Back by Torin Minaya MD to Emery Subramanian and understanding confirmed on 09/24/2022 09:01:22 (ET). Electronically Signed: Torin Minaya MD at 9:02 EDT , Brain MRI 09/24/22 10:53 IMPRESSION: 1. Acute lacunar ischemic infarct in the right posterior periventricular white matter. 2. Previous acute linear ischemic infarcts in the left occipital lobe without obvious cystic encephalomalacia and atrophy are not obvious in today''s MRI scan. 3. Old ischemic infarct with cystic encephalomalacia and atrophy of the right occipital lobe is unchanged. 4. Confluent and chronic white matter ischemic changes in both cerebral hemispheres are unchanged. Electronically Signed: Emery Lynn MD at 12:58 EDT , ADDENDUM: 09/24/22 1315 IMPRESSION: 1. Acute lacunar ischemic infarct in the right posterior periventricular white matter. 2. Previous acute linear ischemic infarcts in the left occipital lobe without obvious cystic encephalomalacia and atrophy are not obvious in today''s MRI scan. 3. Old ischemic infarct with cystic encephalomalacia and atrophy of the right occipital lobe is unchanged. 4. Confluent and chronic white matter ischemic changes in both cerebral hemispheres are unchanged. N.B. : The above Results were Read Back by Emery Lynn MD to Adams Mchugh MD, and understanding confirmed on 09/24/2022 13:08:42 (ET). Echocardiogram 09/24/22 10:53 Interpretation Summary This was a limited 2D transthoracic echocardiogram. Severe concentric left ventricular hypertrophy. The left ventricular ejection fraction is 75 %. Mild diffuse mitral valve thickening. Mild mitral annular calcification. Medications at Discharge Home Medications aspirin 81 mg chewable tablet 81 mg PO DAILY blood thinner 07/02/22 atorvastatin 80 mg tablet 80 mg PO QHS cholesterol 07/02/22 hydrochlorothiazide 25 mg tablet 25 mg PO DAILY blood presure 07/02/22 lisinopril 20 mg tablet 20 mg PO DAILY blood pressure 07/02/22 metoprolol succinate 50 mg tablet,extended release 24 hr 50 mg PO DAILY blood pressure 07/02/22 clopidogrel 75 mg tablet 75 mg PO DAILY Check with primary doctor 09/24/22 multivitamin 1 cap PO DAILY supplement 09/24/22 nicotine 21 mg/24 hr daily transdermal patch 21 mg transdermal DAILY #30 ea 09/27/22 polyethylene glycol 3350 17 gram oral powder packet 17 g PO DAILY #0 ea 09/27/22 Physical Exam Narrative Seen and examined in the morning. BP profile is improved. Heart rate controlled. Headache resolved. She stated she wants to go home. Evaluated PT and OT and recommended discharge home with home health. Physical exam General: Alert, Oriented x3, Cooperative HEENT: Atraumatic, PERRLA, EOMI, Normocephalic. No acute tenderness over head and neck region. 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 Right eye very blurry. Oral: Oral mucosa moist. No Gingival or Mucosal Lesions/ Ulcerations Neck: Supple, No JVD, Negative Carotid Bruits Lungs: Air entry diminished in bilateral lung bases. No crepitation/rhonchi Cardiovascular: Regular rate, Regular Rhythm, Normal S1, Normal S2, No murmurs Abdomen: Bowel Sounds Present, Soft, Non Tender, Non-Distended : No renal angle tenderness. No suprapubic tenderness. Extremities: No edema, Capillary Refill Less than 3 Seconds Skin: No rashes, No breakdown Musculoskeletal: No Tenderness to Palpation of Joints or Extremities, left leg 4+/5 at major joints improving. Neurological: Cranial nerves II-XII grossly intact, DTR 2+/4. Psych/Mental Status: Flat affect. Sad. Weight / BMI Weight Weight: 143 lb 4.807 oz Body Mass Index (BMI) 27.1 ABG / Lab / Microbiology Data Result Diagrams: 09/25/22 07:05 09/25/22 07:05 D/C Instructions Discharge Diet: 2000 mg Sodium Diet Weight Bearing Status: Weight bearing as tolerated Call your doctor if you observe: Fever of 101 or Higher, Coldness, Increased Pain, Numbness or Tingling, Change in Color, Inability to urinate, Inability to have a bowel movement, Using more than 1 pad per hour, Shortness of breath, Dizziness, Fainting spells, Swelling in the ankles, Chest pain, Prolonged hiccupping, Increased palpitations (irregular heartbeat) and Calf discomfort When: IN 2 WEEKS Meaningful Use Info Meaningful Use Diagnoses (Choose all that apply): Ischemic CVA CVA Therapy Assessed for PT,OT and/or ST?: Yes Ischemic Stroke Antithrombotic order at d/c?: Yes Dx of Atrial fib/flutter?: No Anticoagulant at discharge?: Yes Statins at discharge?: Yes Primary Dx Acute Ischemic CVA?: Yes Discharge Plan Admission Admit Date/Time: 09/25/22 10:53 Primary Reason for Your Visit: Acute ischemic stroke. Attending Provider: Roger Alves Primary Care Provider: Desean Bonilla Consulting Providers: Jeison Lamas Discharge Orders/Prescriptions Prescriptions: New polyethylene glycol 3350 17 gram Powder In Packet 17 g PO DAILY Qty: 0 0RF nicotine 21 mg/24 hr Patch 24 Hour 21 mg transdermal DAILY Qty: 30 0RF Continued atorvastatin 80 mg tablet 80 mg PO QHS Label Comments: TAKE 1 TABLET BY MOUTH EVERY DAY AT BEDTIME metoprolol succinate 50 mg tablet extended release 24 hr 50 mg PO DAILY Label Comments: TAKE 1 TABLET BY MOUTH EVERY DAY lisinopril 20 mg tablet 20 mg PO DAILY Label Comments: TAKE 1 TABLET BY MOUTH EVERY DAY aspirin 81 mg tablet,chewable 81 mg PO DAILY Label Comments: TAKE 1 TABLET BY MOUTH EVERY DAY hydrochlorothiazide 25 mg tablet 25 mg PO DAILY Label Comments: TAKE 1 TABLET BY MOUTH EVERY DAY clopidogrel 75 mg tablet 75 mg PO DAILY multivitamin Capsule 1 cap PO DAILY Other Ambulatory Orders: 30 Day Event Recorder Preventi (Urgent) Timeframe: 1 Day Facility: [facility] - Location: Cardiovascular Services Ordered By: Dr. Roger Alves Referrals / Follow Up: Desean Bonilla MD [Primary Care Provider] - Desean Bonilla MD [[facility]] - Rudi Childs MD [Non-Staff -Ordering Privileges] - Within 2 Weeks (for recurrent stroke) Disposition Disposition (needs filled in before D/C Order can be placed): Home Health Service Charges/Coding Visit Charges Inpatient E&M: 18638 Disch Hosp >30min
[2022-09-27 16:22] VITALS: BMI 27.1
--- NOTE | 2022-09-28 09:54 | CASEMGMT ---
RN CM Follow-up: This RN CM attempted to contact patient to discuss home health services and pt choice of provider. Pt's phone number ([phone]) with message stating this phone number is no longer in service. Attempted to contact pt's daughter Yashira Flores who is listed as next of kin at [phone]. No answer received and message states the voicemail box has not been set up. Pt's significant other is listed but there is not a phone number listed. Will continue to attempt to reach pt's daughter. Chencho Pham RN CM
--- NOTE | 2022-09-28 10:26 | CASEMGMT ---
Social Work SW was notified pt left AMA. SW has not been able to speak with dtr. d/t the information pt provided this worker about caring for grandchildren while under the influence of substances, for the patient's safety, this worker phoned referral to Monica at [facility]. JANET Ellsworth LEATHER REPAIRER
--- NOTE | 2022-09-28 15:05 | CASEMGMT ---
REBECCA CANTU Follow-Up: Attempted to contact pt's daughter Yashira via phone. Number continues to go automatically to message stating the voicemail box has not been set up. Chencho Pham RN CM
--- NOTE | 2022-09-29 09:30 | CASEMGMT ---
REBECCA CANTU Follow-up: New number obtained for pt's daughter Yashira Flores. This REBECCA CANTU contacted Yashira but she was at work and unavailable to discuss pt at this time. Yashira requested a call back after 1430. Chencho Pham RN CM
--- NOTE | 2022-09-29 15:25 | CASEMGMT ---
REBECCA CANTU Follow-up: Return call made to pt's daughter Yashira re: pt's home health care needs. Yashira states pt does not have a working phone at this time. Yashira states she is aware of her mother's hospitalization and last visited pt on Wednesday PM. States pt was feeling rough at that time and pt felt she shouldn't have left the hospital. Discussed setting up home healthcare and obtaining pt's choice of providers. Per Yashira, pt would prefer this be set up and would not have a preference in provider. Given pt's risk factors and insurance, finding a provider may be challenging. Referrals sent to [facility], [facility], [facility], [facility]. Pt's daughter states she will be available for communication of acceptance and to relay information to pt. Will continue to follow for acceptance and SOC. Chencho Pham RN CM
--- NOTE | 2022-10-01 15:30 | CASEMGMT ---
REBECCA CANTU Follow-up: [facility], [facility], [facility], and [facility] providers. New referrals sent to [facility], [facility], [facility], [facility], [facility].
--- NOTE | 2022-10-02 11:27 | CASEMGMT ---
RN CM Follow-up: Additional declinations received from [facility], [facility], [facility] and [facility] providers. This RN CM attempted to contact pt's daughter Yashira Flores [phone]. Voicemail did identify this number as belonging to Yashira Flores but voicemail box is full and this RN CM is unable to leave a message. Will reattempt to contact pt's daughter to discuss options to home healthcare including outpt therapy and to discuss follow-up with pt's PCP. Chencho Pham RN CM
--- NOTE | 2022-10-02 17:27 | CASEMGMT ---
RN CM: Call placed to pt's daughter Yashira. This RN CM explained difficulty in securing home health care for pt and explored options including outpatient therapy. Yashira states pt would be amenable to doing oupt tx but transportation would be difficult since she works. Explained hospital van option if pt were to get tx at [facility]. Yashira states pt would be amenable to this. Will reach out to pt's PCP on Wednesday to discuss possible script for outpatient therapies. Confirmed with Yashira that pt does not have a working phone at this time to confirm this plan with pt. Yashira states pt has improved since earlier in the week and states patient hobbles around. Denies any current concerns or questions. Will continue to assist with establishment with post acute care. Chencho Pham RN CM
--- NOTE | 2022-10-05 15:22 | CASEMGMT ---
REBECCA CANTU Follow-up: Dr. Olivera's office contacted to discuss potential outpt therapy. Per Esperanza, pt has not see Dr. Olivera since 2019 and so is listed in the [facility] system as not having a PCP. Pt needs to see Dr. Bonilla or other physician to establish as a patient in their practice. [facility] with last visit in the fall of 2021. Call placed to pt's daughter Yashira and informed Yashira of the above. Per Yashira, she will call this week to schedule an appointment and get pt established with a PCP. Yashira states she will contact this RN CM when this has been arranged. This RN CM provided a direct phone number to Yashira. Will continue to assist with transition to outpt care. Chencho Pham RN CM
--- NOTE | 2022-10-13 12:46 | CASEMGMT ---
Social Work Received letter in the mail from [facility] stating the referral was accepted for pt's dtr, Kya Flores and her three children: Jose Rico, Rio Rico, and Erlin Rico. The hospital nurse liaison assigned is Kemi Mazariegos at [phone]. JANET EllsworthW
== END 2022-09-27 16:22 | disposition home or self-care (01) | DRG 45 ==
LOC: ED 10:38 → PCU 10:49
PROVIDERS: Admitting Provider Family Medicine; Emergency Provider Emergency Medicine; PCP Family Medicine; Visit Provider Internal Medicine
DX: I63.9 Cerebral infarction, unspecified (principal); G81.94 Hemiplegia, unspecified affecting left nondominant side; F15.10 Other stimulant abuse, uncomplicated; I16.0 Hypertensive urgency; I10 Essential (primary) hypertension; E78.5 Hyperlipidemia, unspecified; F17.210 Nicotine dependence, cigarettes, uncomplicated; F12.10 Cannabis abuse, uncomplicated; H54.8 Legal blindness, as defined in USA; X58.XXXA Exposure to other specified factors, initial encounter; R29.6 Repeated falls; R29.703 NIHSS score 3; R29.702 NIHSS score 2; Z79.02 Long term (current) use of antithrombotics/antiplatelets; Z79.82 Long term (current) use of aspirin; Z79.899 Other long term (current) drug therapy; Z86.73 Personal history of transient ischemic attack (TIA), and cerebral infarction without residual deficits; Z82.3 Family history of stroke; Z82.49 Family history of ischemic heart disease and other diseases of the circulatory system
CPT/HCPCS: 36415; 70450; 70496; 70498; 70551; 71045; 80048; 80061; 80307; 82607; 83036; 84443; 84484; 85025; 85610; 85730; 92507; 92523; 92610; 93005; 93308; 94762; 97110; 97116; 97162; 97166; 97530; 97802; 99285; 99406; Q9967; A4216

== ENCOUNTER 2022-10-18 19:42 | Inpatient (IN) | payer MEDICAID, SELFPAY ==
[2022-10-18] VITALS (8 sets, daily range): BP systolic 169–207; BP diastolic 95–107; PULSE 72–91; RESP 15–19; TEMP 36.4–36.6; O2SAT 98–100; BMI 28.2; BMI 27.6
--- NOTE | 2022-10-18 19:44 | CT_ITS ---
We are attempting to reach an attending provider to discuss findings. An addendum with communication details will be sent when the communication is complete. STUDY: CT BRAIN WITHOUT CONTRAST REASON FOR EXAM: Female, 52 years old. Neuro deficit, acute, stroke suspected Individualized dose optimization techniques were used for this CT. TECHNIQUE: Transaxial CT imaging of the brain was performed without administration of intravenous contrast material. COMPARISON: CT head and MRI 09/24/2022. FINDINGS: There are calcifications around the carotid artery. These are noted in the cavernous carotid arteries. Normal calvarium. Normal soft tissues. There is mild cerebral atrophy with widening of the extra-axial spaces and ventricular dilatation. There are areas of decreased attenuation within the white matter tracts of the supratentorial brain, consistent with microvascular disease changes. Normal basal ganglia and thalami. Normal brainstem. There is mild cerebellar atrophy. There is no intracranial hemorrhage. There are no findings of an acute ischemic infarction. Right maxillary sinus disease. Old right occipital lobe infarct. ASPECTS Score for Acute Strokes: 03/30 CT/STROKE Brain/Head without Cont IMPRESSION: There are no acute findings. Chronic involutional changes of the brain. Electronically Signed: Juanito Song MD at 20:02 EDT ,
--- NOTE | 2022-10-18 19:44 | CT_ITS ---
EXAM: CT ANGIOGRAPHY HEAD AND NECK WITH INTRAVENOUS CONTRAST CLINICAL INDICATION: Neuro deficit, acute, stroke suspected TECHNIQUE: [place]/head and neck CT angiography protocol performed with intravenous contrast. This CT exam was performed using one or more of the following dose reduction techniques: automated exposure control, adjustment of the mA and/or kV according to patient size, and/or use of iterative reconstruction technique. MIP reconstructed images were created and reviewed. CONTRAST: IV 100mL Isovue-370 RADIATION DOSE: CTDIvol = 22.76 mGy, DLP = 783.88 mGy-cm COMPARISON: ct head w/o done earlier today. FINDINGS: HEAD: RIGHT ANTERIOR CEREBRAL ARTERY: Unremarkable. No significant stenosis at the visualized segments. Anterior communicating artery is present. No aneurysm. RIGHT MIDDLE CEREBRAL ARTERY: Unremarkable. No significant stenosis at the visualized segments. No aneurysm. RIGHT POSTERIOR CEREBRAL ARTERY: Unremarkable. No occlusion or significant stenosis. No aneurysm. RIGHT INTRACRANIAL INTERNAL CAROTID ARTERY: Unremarkable. No significant stenosis. No dissection or occlusion. RIGHT INTRACRANIAL VERTEBRAL ARTERY: Unremarkable. No significant stenosis. No dissection or occlusion. LEFT ANTERIOR CEREBRAL ARTERY: Unremarkable. No significant stenosis at the visualized segments. No aneurysm. LEFT MIDDLE CEREBRAL ARTERY: Unremarkable. No significant stenosis at the visualized segments. No aneurysm. LEFT POSTERIOR CEREBRAL ARTERY: Unremarkable. No occlusion or significant stenosis. No aneurysm. LEFT INTRACRANIAL INTERNAL CAROTID ARTERY: Unremarkable. No significant stenosis. No dissection or occlusion. LEFT INTRACRANIAL VERTEBRAL ARTERY: Unremarkable. No significant stenosis. No dissection or occlusion. BASILAR ARTERY: Unremarkable. No significant stenosis. No aneurysm. OTHER VASCULATURE: There is mild atherosclerotic plaque formation of the origin of the right internal carotid artery with less than 50% cross sectional diameter stenosis. ALL ABOVE CRITERIA BY NASCET. There is mild atherosclerotic plaque formation of the origin of the left internal carotid artery with less than 50% cross sectional diameter stenosis. ALL ABOVE CRITERIA BY NASCET. There is calcified plaque formation of the right cavernous carotid artery, with a mild stenosis (less than 50%). ALL ABOVE CRITERIA BY NASCET. There is calcified plaque formation of the left cavernous carotid artery, with a mild stenosis (less than 50%). ALL ABOVE CRITERIA BY NASCET. No vascular malformation. NECK: RIGHT COMMON CAROTID ARTERY: Unremarkable. No significant stenosis. No dissection or occlusion. RIGHT EXTRACRANIAL INTERNAL CAROTID ARTERY: Unremarkable. No significant stenosis. No dissection or occlusion. RIGHT EXTERNAL CAROTID ARTERY: Unremarkable. No occlusion. RIGHT EXTRACRANIAL VERTEBRAL ARTERY: Unremarkable. No significant stenosis. No dissection or occlusion. LEFT COMMON CAROTID ARTERY: Unremarkable. No significant stenosis. No dissection or occlusion. LEFT EXTRACRANIAL INTERNAL CAROTID ARTERY: Unremarkable. No significant stenosis. No dissection or occlusion. LEFT EXTERNAL CAROTID ARTERY: Unremarkable. No occlusion. LEFT EXTRACRANIAL VERTEBRAL ARTERY: Unremarkable. No significant stenosis. No dissection or occlusion. BRACHIOCEPHALIC AND SUBCLAVIAN ARTERIES: Unremarkable as visualized. No occlusion or significant stenosis. LUNG APICES: Unremarkable as visualized. HEAD and NECK: BONES/JOINTS: There are degenerative findings of the cervical spine. No discrete lytic or blastic abnormalities. SOFT TISSUES: Unremarkable. CAROTID STENOSIS REFERENCE USING NASCET CRITERIA: % ICA stenosis = (1 - narrowest ICA diameter/diameter of distal cervical ICA) x 100. Mild - <50% stenosis. Moderate - 50-69% stenosis. Severe - 70-94% stenosis. Near occlusion - 95-99% stenosis. Occluded - 100% stenosis. CT/STROKE CTA Head AND Neck W/Con IMPRESSION: 1. There is mild atherosclerotic plaque formation of the origin of the right internal carotid artery with less than 50% cross sectional diameter stenosis. ALL ABOVE CRITERIA BY NASCET. 2. There is mild atherosclerotic plaque formation of the origin of the left internal carotid artery with less than 50% cross sectional diameter stenosis. ALL ABOVE CRITERIA BY NASCET. 3. There is calcified plaque formation of the right cavernous carotid artery, with a mild stenosis (less than 50%). ALL ABOVE CRITERIA BY NASCET. 4. There is calcified plaque formation of the left cavernous carotid artery, with a mild stenosis (less than 50%). ALL ABOVE CRITERIA BY NASCET. N.B. : The above Results were Read Back by Juanito Song MD to Courtney Gaxiola MD, and understanding confirmed on 10/18/2022 20:14:51 (ET). Electronically Signed: Juanito Song MD at 20:15 EDT ,
[2022-10-18 19:50] LABS: Absolute Lymphocyte Count 2.18 X10^3/uL (0.83-4.51); Absolute Neutrophil Count 8.8 X10^3/uL (2.0-7.7); Basophil# 0.07 X10^3/uL; Basophil% 0.6 % (0-1); Eosinophil# 0.17 X10^3/uL; Eosinophils% 1.4 % (0-5); Hematocrit 38.3 % (37-47); Hemoglobin 12.6 g/dL (12.0-15.0); Lymphocyte # 2.18 X10^3/ul (0.83-4.51); Lymphocyte % 17.9 % (19-41); Mean Corp Hgb Conc 32.9 g/dL (32-36); Mean Corpuscular Hgb 28.3 pg (27.0-32.0); Mean Corpuscular Volume 86.1 fL (81-99); Mean Platelet Vol. 11.4 fl (6.2-12.0); Monocyte# 0.91 X10^3/uL; Monocyte% 7.5 % (0-10); NRBC Flagged by Analyzer 0 % (0-5); Neutrophil # 8.79 X10^3/uL (2.7-7.7); Neutrophil % 72.2 % (47-70); Platelet Count 275 K/mm3 (150-450); RBC Distribution Width CV 12.6 % (11.6-14.6); RBC Distribution Width SD 39.5 fl (35.1-43.9); Red Blood Count 4.45 M/mm3 (4.2-5.4); White Blood Count 12.2 K/mm3 (4.4-11.0)
[2022-10-18 19:58] LABS: Prothrombin Time (Protime)PT. 13.1 SECONDS (11.7-14.9)
[2022-10-18 19:59] LABS: Partial Thromboplast Time 25.8 Seconds (24.1-36.2)
[2022-10-18 20:11] LABS: Anion Gap 5 (5-15); BUN 22 mg/dL (7-18); BUN/Creat Ratio 17.6 RATIO (10-20); Calcium,Total 9.1 mg/dL (8.5-10.1); Chloride 108 mmol/L (98-107); Creatinine, Serum 1.25 mg/dL (0.55-1.02); EST Glomerular Filtration Rate 47 mL/min (>60); Est Glom Filt Rate - Afr Amer 57 mL/min (>60); Estimated Creatinine Clearance 38.82 ml/min; Glucose 128 mg/dL (74-106); Potassium 3.5 mmol/L (3.5-5.1); Sodium Level 138 mmol/L (136-145); Troponin-I HS 7 pg/mL (3.0-54.0)
--- NOTE | 2022-10-18 20:14 | ED.VIS.STROK ---
HPI <Dr. Courtney Gaxiola MD - Last Filed: 10/18/22 22:26> History of Present Illness Chief Complaint: Stroke Alert Informant: patient and EMS Onset/Context/Timing Onset: Today Quality and Location: Positive for Left Facial Droop, Left Arm Weakness, Left Leg Weakness and Slurred Speech Narrative Narrative: Patient presents via EMS as a stroke alert. Patient reports that she was walking out of her home when she thought she caught her toe and fell. She has left-sided weakness. It is noted that the patient was seen earlier this month with left-sided weakness secondary to stroke. She states that her weakness improved but never completely came back to baseline. She is having a hard time telling me whether the weakness that she is experiencing now is worse than it has been. She states her boyfriend called EMS because he thought it was happening again. He is not here to provide history. [facility] <Dr. Courtney Gaxiola MD - Last Filed: 10/18/22 22:26> [facility] Medical History Alcohol abuse CVA (cerebral vascular accident) Depression Hepatitis B Hidradenitis suppurativa Hypertension Hypertensive urgency Irregular heart beat Ischemic cerebrovascular accident (CVA) Left axillary hidradenitis Smoker Tobacco use Vision loss of left eye Vision loss of right eye Home Medications aspirin 81 mg chewable tablet 81 mg PO DAILY heart health 07/02/22 [History Last Taken Unknown] multivitamin 1 cap PO DAILY supplement 09/24/22 [History Last Taken Unknown] polyethylene glycol 3350 17 gram oral powder packet 17 g PO DAILY Check with primary doctor 10/18/22 [History Last Taken Unknown] atorvastatin 40 mg tablet 80 mg PO QHS #0 tabs 10/20/22 [Rx Last Taken Unknown] lisinopril 20 mg tablet 40 mg PO DAILY blood pressure 30 days #0 tabs 10/20/22 [Rx Last Taken 10/14/22] nicotine 21 mg/24 hr daily transdermal patch 21 mg transdermal DAILY Check with primary doctor 30 days #30 ea 10/20/22 [Rx Last Taken Unknown] rivaroxaban 2.5 mg tablet (Xarelto) 2.5 mg PO BID 30 days #60 tabs 10/20/22 [Rx Last Taken Unknown] sennosides 8.6 mg-docusate sodium 50 mg tablet (Stool Softener-Stimulant Laxative) 2 tab PO BID PRN PRN Constipation #0 tabs 10/20/22 [Rx Last Taken Unknown] Allergy/AdvReac Type Severity Reaction Status Date / Time Penicillins Allergy Hives Verified 09/24/22 08:50 Family History Mother CVA (cerebral vascular accident) CAD (coronary artery disease) Hypertension Heart disease Myocardial infarction Father CAD (coronary artery disease) Heart disease Hypertension Myocardial infarction Surgical History H/O umbilical hernia repair History of bilateral tubal ligation History of eye surgery Hx of cataract surgery S/P lens implant Status post glaucoma surgery Status post tonsillectomy and adenoidectomy Social History household members: none housing: apartment Smoking Status: Current every day smoker tobacco type: cigarettes how long ago did patient quit smoking: Patient reports 1/2 ppd cigarette tobacco use since teen. alcohol intake: never substance use type: does not use ROS <Dr. Courtney Gaxiola MD - Last Filed: 10/18/22 22:26> ROS ED Constitutional Constitutional ED: Denies chills or fever(s) Eyes Eyes: Reports other Details: Chronic poor vision but not changed from baseline. ; Denies change in vision ENT ENT ED: Denies rhinorrhea or sore throat Cardiovascular Cardiovascular: Denies chest pain or palpitations Respiratory/Chest Respiratory/Chest: Denies cough or dyspnea Gastrointestinal Gastrointestinal: Denies abdominal pain, nausea or vomiting Genitourinary Genitourinary ED: Denies dysuria Musculoskeletal Musculoskeletal: Denies back pain or extremity pain Integumentary Denies Abrasions or rash Neurologic Neurologic: Reports weakness; Denies headache(s) Psychiatric Psychiatric: Denies anxiety or depression Endocrine Endocrinology: Denies polydipsia or polyuria Allergic/Immunologic Allergic/Immunologic ED: Denies lip swelling or urticaria EXAM <Dr. Courtney Gaxiola MD - Last Filed: 10/18/22 22:26> Physical Exam Const Vital Signs: 10/18/22 20:01 10/18/22 20:01 10/18/22 20:02 Temperature 97.8 F Temperature Source Oral Pulse Rate 89 90 Respiratory Rate 17 18 Blood Pressure 199/100 H 192/97 H Blood Pressure Mean 133 128 Pulse Ox 100 100 100 Oxygen Delivery Method Room Air Room Air Room Air 10/18/22 20:25 10/18/22 20:30 10/18/22 20:43 Temperature 97.5 F L 97.5 F L Temperature Source Oral Oral Pulse Rate 89 89 89 Respiratory Rate 19 H 19 H 15 Blood Pressure 207/106 H 200/105 H 200/105 H Blood Pressure Mean 139 136 136 Pulse Ox 99 99 99 Oxygen Delivery Method Room Air Room Air Room Air 10/18/22 20:48 Temperature Temperature Source Pulse Rate 91 Respiratory Rate 16 Blood Pressure 183/95 H Blood Pressure Mean 124 Pulse Ox 98 Oxygen Delivery Method Room Air Positive well nourished and well developed General Appearance ED: well developed HEENT Reports moist mucous membranes Eyes EOMs intact bilaterally Neck no lymphadenopathy Chest Wall inspection of chest normal and palpation of chest normal Resp normal respiratory effort and clear to auscultation bilaterally Cardio Rate: regular rate Rhythm: regular rhythm GI normal to inspection, nondistended, normoactive bowel sounds Extremity normal to inspection Neuro oriented x3 Neuro Narrative: See NIH stroke score. Psych mental status grossly normal NIHSS NIHSS Initial: 1a Level of Consciousness: 0 1b LOC Questions (Score 2 if aphasic/stupor): 0 1c LOC Commands (Only score 1st attempt): 0 2 Best Gaze (If aphasic, use reflexive mvmts.): 0 3 Visual: 1 4 Facial Palsy: 1 5 Motor Arm Right (UN = amputation/fusion): 0 5 Motor Arm Left: 1 6 Motor Leg Right: 0 6 Motor Leg Left: 0 7 Limb ataxia (Only + if out of proportion): 1 8 Sensory (Aphasia/stupor=0 or 1, coma=2): 0 9 Best Language: 0 10 Dysarthria (mute, coma=2, intubated=UN): 0 11 Extinction and Inattention (only scored if +): 0 Total Score: 4 <Dr. Danielle Goldstein MD - Last Filed: 10/20/22 16:52> Physical Exam Const Vital Signs: 10/18/22 20:01 10/18/22 20:01 10/18/22 20:02 Temperature 97.8 F Temperature Source Oral Pulse Rate 89 90 Respiratory Rate 17 18 Blood Pressure 199/100 H 192/97 H Blood Pressure Mean 133 128 Pulse Ox 100 100 100 Oxygen Delivery Method Room Air Room Air Room Air 10/18/22 20:25 10/18/22 20:30 10/18/22 20:43 Temperature 97.5 F L 97.5 F L Temperature Source Oral Oral Pulse Rate 89 89 89 Respiratory Rate 19 H 19 H 15 Blood Pressure 207/106 H 200/105 H 200/105 H Blood Pressure Mean 139 136 136 Pulse Ox 99 99 99 Oxygen Delivery Method Room Air Room Air Room Air 10/18/22 20:48 Temperature Temperature Source Pulse Rate 91 Respiratory Rate 16 Blood Pressure 183/95 H Blood Pressure Mean 124 Pulse Ox 98 Oxygen Delivery Method Room Air NIHSS NIHSS Initial: Total Score: 4 MDM <Dr. Courtney Gaxiola MD - Last Filed: 10/18/22 22:26> [facility] MDM Narrative Medical decision making narrative: Patient was met and EMS doors as prehospital stroke alert had been initiated. Patient immediately sent to CT scan for CT scan of the head along with CTA of the head and neck. Labwork obtained to evaluate for leukocytosis, anemia, and electrolyte derangement. EKG obtained to evaluate for cardiac arrhythmia/ischemia. Chest x-ray obtained to evaluate for acute lung pathology, cardiac size, or mediastinal abnormality. History & Record Review Discussion w/independent historian: EMS personnel and Patient Additional record(s) reviewed:: Prior inpatient record, Prior ED visit and Prior labs Lab Data Attestation: I reviewed the patient's lab results. Labs: Laboratory Results - last 24 hr 10/18/22 10/18/22 10/18/22 19:35 19:35 19:35 WBC 12.2 H RBC 4.45 Hgb 12.6 Hct 38.3 MCV 86.1 MCH 28.3 MCHC 32.9 RDW Std Deviation 39.5 RDW Coeff of Jovani 12.6 Plt Count 275 MPV 11.4 Immature Gran % (Auto) 0.400 Neut % (Auto) 72.2 H Lymph % (Auto) 17.9 L Giles % (Auto) 7.5 Eos % (Auto) 1.4 Baso % (Auto) 0.6 Absolute Neuts (auto) 8.8 H Absolute Lymphs (auto) 2.18 Nucleated RBC % 0 PT 13.1 INR 1.0 APTT 25.8 Sodium 138 Potassium 3.5 Chloride 108 H Carbon Dioxide 25.0 Anion Gap 5 BUN 22 H Creatinine 1.25 H Estim Creat Clear Calc 38.82 Est GFR (MDRD) Af Amer 57 L Est GFR (MDRD) Non-Af 47 L BUN/Creatinine Ratio 17.6 Glucose 128 H Calcium 9.1 Troponin I High Sens 7 Radiography Chest X-Ray - ED: 1 View, Chronic Changes and No Infiltrates Diagnostic Testing: Clinical Impression(s) from Imaging Studies Brain CT 10/18/22 19:44 IMPRESSION: There are no acute findings. Chronic involutional changes of the brain. N.B. : The above Results were Read Back by Juanito Song MD to Courtney Gaxiola MD, and understanding confirmed on 10/18/2022 20:02:08 (ET). Electronically Signed: Juanito Song MD at 20:02 EDT , Head/Neck CTA 10/18/22 19:44 IMPRESSION: 1. There is mild atherosclerotic plaque formation of the origin of the right internal carotid artery with less than 50% cross sectional diameter stenosis. ALL ABOVE CRITERIA BY NASCET. 2. There is mild atherosclerotic plaque formation of the origin of the left internal carotid artery with less than 50% cross sectional diameter stenosis. ALL ABOVE CRITERIA BY NASCET. 3. There is calcified plaque formation of the right cavernous carotid artery, with a mild stenosis (less than 50%). ALL ABOVE CRITERIA BY NASCET. 4. There is calcified plaque formation of the left cavernous carotid artery, with a mild stenosis (less than 50%). ALL ABOVE CRITERIA BY NASCET. N.B. : The above Results were Read Back by Juanito Song MD to Courtney Gaxiola MD, and understanding confirmed on 10/18/2022 20:14:51 (ET). Electronically Signed: Juanito Song MD at 20:15 EDT , ADDENDUM: 10/18/222021 IMPRESSION: 1. There is mild atherosclerotic plaque formation of the origin of the right internal carotid artery with less than 50% cross sectional diameter stenosis. ALL ABOVE CRITERIA BY NASCET. 2. There is mild atherosclerotic plaque formation of the origin of the left internal carotid artery with less than 50% cross sectional diameter stenosis. ALL ABOVE CRITERIA BY NASCET. 3. There is calcified plaque formation of the right cavernous carotid artery, with a mild stenosis (less than 50%). ALL ABOVE CRITERIA BY NASCET. 4. There is calcified plaque formation of the left cavernous carotid artery, with a mild stenosis (less than 50%). ALL ABOVE CRITERIA BY NASCET. N.B. : The above Results were Read Back by Juanito Song MD to Courtney Gaxiola MD, and understanding confirmed on 10/18/2022 20:14:51 (ET). Electronically Signed: Juanito Song MD at 20:15 EDT , Chest X-Ray 10/18/22 20:15 IMPRESSION: No acute findings in the chest. Electronically Signed: Juanito Song MD at 20:27 EDT , EKG Initial EKG: Attestation: I personally reviewed and interpreted this EKG as follows: Interpretation: Sinus Rhythm (Sinus 89 with no acute ischemia.) Treatment and Re-Evaluation Narrative: While patient was in CT imaging was able to review her prior hospital records. Patient was admitted to the hospital earlier this month on September 24 with similar symptoms of high blood pressure and left-sided weakness. At that time her CT showed evidence of an old right basal ganglia stroke. During her inpatient work-up an acute right lacunar ischemic stroke was noted on MRI. There is also documentation that the patient had a left occipital lobe infarct in June of this year. At the time of discharge it was recommended the patient take 21 days of dual antiplatelet therapy with Plavix and aspirin along with a statin. After 21 days she could take just aspirin and the statin. Patient tells me she never took any Plavix. She states that the only medication she has been taking is aspirin and lisinopril. She admits to running out of her lisinopril 4 days ago. Radiologist called me with both CT as well as CTA head/neck results. There is no evidence of acute ischemic infarct. There is no evidence of hemorrhage. There is no evidence of LVO. Neurology from [facility] evaluated the patient on the robot. Given that the patient had a stroke earlier this month which left her with some left-sided residual deficits, and that she is unable to tell us if it is significantly worse now, he does not feel patient should receive tenecteplase. He discussed this with her and she is comfortable with this plan. EKG is sinus rhythm at 89 bpm. No acute ischemia notation is unremarkable with chronic changes only. CBC reveals a white count of 12.2 with 72% neutrophils. Hemoglobin is normal at 12.6. Coags are normal. Chemistry studies significant only for a BUN of 22 and a creatinine 1.25. Her glucose is 128. Troponin is normal at 7. At this time neurology does recommend observation for repeat MRI to ensure no evidence of a new, acute ischemic infarct. It is also noted that patient was supposed to follow-up for a 30-day event monitor, however she has not done this. <Dr. Danielle Goldstein MD - Last Filed: 10/20/22 16:52> [facility] Lab Data Labs: Laboratory Results - last 24 hr 10/18/22 10/18/22 10/18/22 19:35 19:35 19:35 WBC 12.2 H RBC 4.45 Hgb 12.6 Hct 38.3 MCV 86.1 MCH 28.3 MCHC 32.9 RDW Std Deviation 39.5 RDW Coeff of Jovani 12.6 Plt Count 275 MPV 11.4 Immature Gran % (Auto) 0.400 Neut % (Auto) 72.2 H Lymph % (Auto) 17.9 L Giles % (Auto) 7.5 Eos % (Auto) 1.4 Baso % (Auto) 0.6 Absolute Neuts (auto) 8.8 H Absolute Lymphs (auto) 2.18 Nucleated RBC % 0 PT 13.1 INR 1.0 APTT 25.8 Sodium 138 Potassium 3.5 Chloride 108 H Carbon Dioxide 25.0 Anion Gap 5 BUN 22 H Creatinine 1.25 H Estim Creat Clear Calc 38.82 Est GFR (MDRD) Af Amer 57 L Est GFR (MDRD) Non-Af 47 L BUN/Creatinine Ratio 17.6 Glucose 128 H Calcium 9.1 Troponin I High Sens 7 Radiography Diagnostic Testing: Clinical Impression(s) from Imaging Studies Brain CT 10/18/22 19:44 IMPRESSION: There are no acute findings. Chronic involutional changes of the brain. N.B. : The above Results were Read Back by Juanito Song MD to Courtney Gaxiola MD, and understanding confirmed on 10/18/2022 20:02:08 (ET). Electronically Signed: Juanito Song MD at 20:02 EDT , Head/Neck CTA 10/18/22 19:44 IMPRESSION: 1. There is mild atherosclerotic plaque formation of the origin of the right internal carotid artery with less than 50% cross sectional diameter stenosis. ALL ABOVE CRITERIA BY NASCET. 2. There is mild atherosclerotic plaque formation of the origin of the left internal carotid artery with less than 50% cross sectional diameter stenosis. ALL ABOVE CRITERIA BY NASCET. 3. There is calcified plaque formation of the right cavernous carotid artery, with a mild stenosis (less than 50%). ALL ABOVE CRITERIA BY NASCET. 4. There is calcified plaque formation of the left cavernous carotid artery, with a mild stenosis (less than 50%). ALL ABOVE CRITERIA BY NASCET. N.B. : The above Results were Read Back by Juanito Song MD to Courtney Gaxiola MD, and understanding confirmed on 10/18/2022 20:14:51 (ET). Electronically Signed: Juanito Song MD at 20:15 EDT , ADDENDUM: 10/18/222021 IMPRESSION: 1. There is mild atherosclerotic plaque formation of the origin of the right internal carotid artery with less than 50% cross sectional diameter stenosis. ALL ABOVE CRITERIA BY NASCET. 2. There is mild atherosclerotic plaque formation of the origin of the left internal carotid artery with less than 50% cross sectional diameter stenosis. ALL ABOVE CRITERIA BY NASCET. 3. There is calcified plaque formation of the right cavernous carotid artery, with a mild stenosis (less than 50%). ALL ABOVE CRITERIA BY NASCET. 4. There is calcified plaque formation of the left cavernous carotid artery, with a mild stenosis (less than 50%). ALL ABOVE CRITERIA BY NASCET. N.B. : The above Results were Read Back by Juanito Song MD to Courtney Gaxiola MD, and understanding confirmed on 10/18/2022 20:14:51 (ET). Electronically Signed: Juanito Song MD at 20:15 EDT , Chest X-Ray 10/18/22 20:15 IMPRESSION: No acute findings in the chest. Electronically Signed: Juanito Song MD at 20:27 EDT , <Dr. Courtney Gaxiola MD - Last Filed: 10/18/22 22:26> Critical Care Time Critical Care Time: Yes Critical care time (excluding procedures): 30-74 minutes (30 minutes), Discussing w/Patient &/or Family/Manager Branch, Discussing w/Consultants, Arranging Admission or Transfer and Performing Direct Patient Care at Bedside Discharge Plan Dx/Rx/DC Orders Clinical Impression: CVA (cerebral vascular accident) Disposition Disposition: [facility]
--- NOTE | 2022-10-18 20:15 | RAD_ITS ---
EXAM: XR CHEST, 1 VIEW CLINICAL INDICATION: Neuro deficit, acute, stroke suspected TECHNIQUE: Frontal view of the chest. COMPARISON: 4.12.11 FINDINGS: LUNGS AND PLEURAL SPACES: Unremarkable. No consolidation or edema. No pneumothorax. No effusion. HEART: Unremarkable. Cardiac silhouette not enlarged. MEDIASTINUM: Central airways and mediastinal contour are unremarkable. BONES/JOINTS: Old healed left humeral fracture. SOFT TISSUES: Unremarkable. RAD/Chest 1 View IMPRESSION: No acute findings in the chest. Electronically Signed: Juanito Song MD at 20:27 EDT ,
--- NOTE | 2022-10-18 21:11 | ED.RN ---
have been attempting to document the nih x 10 min but the hospitalist is in the chart and unable tatianna document.
--- NOTE | 2022-10-18 21:15 | HP.PCM.HOS_ITS ---
HPI - General General Date of Admission: 10/18/22 Date of Service: 10/18/22 Chief Complaint: Weakness of left side HPI Narrative ZEKE RAY, is a 52 F with a significant history of CVA who presents to the emergency department with left-sided weakness. Reportedly patient fell on her stairs at home. Her boyfriend reported that after the fall he realized the patient left side was weaker than usual. Also was concerned that the patie nt's left hand looked curled. Further facial asymmetry had worsened. Of note patient had a CVA on September 24, 2022 and was admitted to the hospital. Also he was admitted to the hospital in June 2022 for acute encephalopathy with unclear etiology and found to have lacunar infarcts with unclear age. On presentation patient was unsure whether her symptoms has worsened. However her boyfriend is sure that patient's symptoms has worsened. Because patient's boyfriend thought that patient's symptoms has worsened he called the paramedics who brought patient to the hospital. At the emergency department patient was evaluated by telemetry neurologist who upon evaluation considered patient not a candidate of thrombolytics. [facility] Medical History Alcohol abuse CVA (cerebral vascular accident) Depression Hepatitis B Hidradenitis suppurativa Hypertension Hypertensive urgency Irregular heart beat Ischemic cerebrovascular accident (CVA) Left axillary hidradenitis Smoker Tobacco use Vision loss of left eye Vision loss of right eye Home Medications aspirin 81 mg chewable tablet 81 mg PO DAILY heart health 07/02/22 [History Last Taken Unknown] lisinopril 20 mg tablet 20 mg PO DAILY blood pressure 07/02/22 [History Last Taken 10/14/22] multivitamin 1 cap PO DAILY supplement 09/24/22 [History Last Taken Unknown] nicotine 21 mg/24 hr daily transdermal patch 21 mg transdermal DAILY Check with primary doctor 10/18/22 [History Last Taken Unknown] polyethylene glycol 3350 17 gram oral powder packet 17 g PO DAILY Check with primary doctor 10/18/22 [History Last Taken Unknown] Allergy/AdvReac Type Severity Reaction Status Date / Time Penicillins Allergy Hives Verified 09/24/22 08:50 Family History Mother CVA (cerebral vascular accident) CAD (coronary artery disease) Hypertension Heart disease Myocardial infarction Father CAD (coronary artery disease) Heart disease Hypertension Myocardial infarction Surgical History H/O umbilical hernia repair History of bilateral tubal ligation History of eye surgery Hx of cataract surgery S/P lens implant Status post glaucoma surgery Status post tonsillectomy and adenoidectomy Social History household members: none housing: apartment Smoking Status: Current every day smoker tobacco type: cigarettes how long ago did patient quit smoking: Patient reports 1/2 ppd cigarette t obacco use since teen. alcohol intake: never substance use type: does not use ROS ROS Narrative Pertinent positives and pertinent negatives as noted in HPI. All other systems were reviewed and are negative Vital Signs Vital Signs Vital Signs: 10/18/22 20:01 10/18/22 20:01 10/18/22 20:02 Temperature 97.8 F Temperature Source Oral Pulse Rate 89 90 Respiratory Rate 17 18 Blood Pressure 199/100 H 192/97 H Blood Pressure Mean 133 128 Pulse Ox 100 100 100 Oxygen Delivery Method Room Air Room Air Room Air 10/18/22 20:25 10/18/22 20:30 10/18/22 20:43 Temperature 97.5 F L 97.5 F L Temperature Source Oral Oral Pulse Rate 89 89 89 Respiratory Rate 19 H 19 H 15 Blood Pressure 207/106 H 200/105 H 200/105 H Blood Pressure Mean 139 136 136 Pulse Ox 99 99 99 Oxygen Delivery Method Room Air Room Air Room Air 10/18/22 20:48 Temperature Temperature Source Pulse Rate 91 Respiratory Rate 16 Blood Pressure 183/95 H Blood Pressure Mean 124 Pulse Ox 98 Oxygen Delivery Method Room Air Weight Weight: 67.8 kg Body Mass Index (BMI) 28.2 Physical Exam Narrative Physical exam: General: Well-nourished, well-developed. Head: Normocephalic, atraumatic, no tenderness Eyes: Vision is grossly intact. EOMI ENT, no trauma, moist mucous membranes, no rhinorrhea Neck: Nontender, No thyromegaly. CVS: Regular rate and rhythm. S1-S2 present. No murmur, gallop or rub. Respiratory : clear to auscultation bilaterally, chest wall nontender Abdomen: Soft, nontender, nondistended, normal bowel sounds, no masses : Deferred Back: Nontender, no CVA tenderness, no midline spinal tenderness, deformities, step-offs Extremities: Nontender full range of motion, no trauma Skin: Normal color, no trauma, abrasions Neuro: Alert, oriented, cranial nerves II through XII grossly intact. Strength in all 4 extremities was 5 out of 5. Facial droop of the left face. Not hyperreflexia and deep tendon reflexes of the knee and elbows bilaterally. Psychiatry: Normal mood. Normal affect. Not depressed. Not anxious. Results Lab / Micro Data Result Diagrams: 10/18/22 19:35 10/18/22 19:35 Labs: Laboratory Results - last 24 hr 10/18/22 19:35: WBC 12.2 H, RBC 4.45, Hgb 12.6, Hct 38.3, MCV 86.1, MCH 28.3, MCHC 32.9, RDW Std Deviation 39.5, RDW Coeff of Jovani 12.6, Plt Count 275, MPV 11.4, Immature Gran % (Auto) 0.400, Neut % (Auto) 72.2 H, Lymph % (Auto) 17.9 L, [place] % (Auto) 7.5, Eos % (Auto) 1.4, Baso % (Auto) 0.6, Absolute Neuts (auto) 8.8 H, Absolute Lymphs (auto) 2.18, Nucleated RBC % 0 10/18/22 19:35: PT 13.1, INR 1.0, APTT 25.8 10/18/22 19:35: Sodium 138, Potassium 3.5, Chloride 108 H, Carbon Dioxide 25.0, Anion Gap 5, BUN 22 H, Creatinine 1.25 H, Estim Creat Clear Calc 38.82, Est GFR (MDRD) Af Amer 57 L, Est GFR (MDRD) Non-Af 47 L, BUN/Creatinine Ratio 17.6, Glucose 128 H, Calcium 9.1, Troponin I High Sens [address] 10/18/22 19:44 IMPRESSION: There are no acute findings. Chronic involutional changes of the brain. N.B. : The above Results were Read Back by Juanito Song MD to Courtney Gaxiola MD, and understanding confirmed on 10/18/2022 20:02:08 (ET). Electronically Signed: Juanito Song MD at 20:02 EDT , Head/Neck CTA 10/18/22 19:44 IMPRESSION: 1. There is mild atherosclerotic plaque formation of the origin of the right internal carotid artery with less than 50% cross sectional diameter stenosis. ALL ABOVE CRITERIA BY NASCET. 2. There is mild atherosclerotic plaque formation of the origin of the left internal carotid artery with less than 50% cross sectional diameter stenosis. ALL ABOVE CRITERIA BY NASCET. 3. There is calcified plaque formation of the right cavernous carotid artery, with a mild stenosis (less than 50%). ALL ABOVE CRITERIA BY NASCET. 4. There is calcified plaque formation of the left cavernous carotid artery, with a mild stenosis (less than 50%). ALL ABOVE CRITERIA BY NASCET. N.B. : The above Results were Read Back by Juanito Song MD to Courtney Gaxiola MD, and understanding confirmed on 10/18/2022 20:14:51 (ET). Electronically Signed: Juanito Song MD at 20:15 EDT , ADDENDUM: 10/18/222021 IMPRESSION: 1. There is mild atherosclerotic plaque formation of the origin of the right internal carotid artery with less than 50% cross sectional diameter stenosis. ALL ABOVE CRITERIA BY NASCET. 2. There is mild atherosclerotic plaque formation of the origin of the left internal carotid artery with less than 50% cross sectional diameter stenosis. ALL ABOVE CRITERIA BY NASCET. 3. There is calcified plaque formation of the right cavernous carotid artery, with a mild stenosis (less than 50%). ALL ABOVE CRITERIA BY NASCET. 4. There is calcified plaque formation of the left cavernous carotid artery, with a mild stenosis (less than 50%). ALL ABOVE CRITERIA BY NASCET. N.B. : The above Results were Read Back by Juanito Song MD to Courtney Gaxiola MD, and understanding confirmed on 10/18/2022 20:14:51 (ET). Electronically Signed: Juanito Song MD at 20:15 EDT , Chest X-Ray 10/18/22 20:15 IMPRESSION: No acute findings in the chest. Electronically Signed: Juanito Song MD at 20:27 EDT , Assessment & Plan Assessment/Plan (1) CVA (cerebral vascular accident): (2) Hypertensive emergency: PLAN: Plan Acute CVA Serial NINDS NIH Scale ordered Impression of head CT by radiology: No acute findings. Chronic involutional changes of the brain. Hospitalist independent interpretation of head CT: Agrees with radiologist interpretation Last lipid panel on 09/25/22: Triglycerides 63; cholesterol 144; LDL: 78; VLDL 13; HDL 53. Patient has a history of acute liver injury. Will start patient on statin, atorvastatin 40 mg nightly. Will check CMP. Physical therapy, and occupational therapy to work with patient. Daily aspirin continued. We will start patient on Plavix. Permissive hypertension. Control blood pressure with labetalol for systolic blood pressure of more than 220 or diastolic blood pressure of more than 120. Head and neck CTA on presentation did not show hemodynamically significant stenosis. MRI of brain ordered Echocardiogram on 09/24/2022 showed severe concentric left ventricular hypertrop hy. Left ventricular EF was 75%. Hypertensive emergency Patient with severely elevated blood pressure with highest systolic blood pressure of 224 and highest diastolic blood pressure of 106. As needed hydralazine and labetalol per stroke parameters ordered. Trend blood pressures. Leukocytosis White count 12,200. Likely reactive. Trend. Tobacco abuse Counseled Nicotine patch continued. DVT prophylaxis SCDs ordered Charges/Coding Visit Charges Inpatient E&M: 31704 Init Hosp L3
[2022-10-18] MEDS: Atorvastatin Calcium 40 MG Tablet PO (22:37)
[2022-10-19] VITALS (14 sets, daily range): BP systolic 133–224; BP diastolic 89–115; PULSE 64–94; RESP 14–18; TEMP 36.4–37.6; O2SAT 97–100; BMI 27.6
[2022-10-19] MEDS: hydrALAZINE 20 MG/ML Vial 5 MG IV (02:44)
[2022-10-19] MEDS: 0.9% Saline Lock 10 ML Syringe IV ×2 (02:44→11:51)
[2022-10-19 06:56] LABS: Absolute Lymphocyte Count 2.24 X10^3/uL (0.83-4.51); Absolute Neutrophil Count 6.9 X10^3/uL (2.0-7.7); Basophil# 0.08 X10^3/uL; Basophil% 0.8 % (0-1); Eosinophil# 0.45 X10^3/uL; Eosinophils% 4.2 % (0-5); Hematocrit 42.2 % (37-47); Hemoglobin 13.6 g/dL (12.0-15.0); Lymphocyte # 2.24 X10^3/ul (0.83-4.51); Lymphocyte % 21.2 % (19-41); Mean Corp Hgb Conc 32.2 g/dL (32-36); Mean Corpuscular Hgb 27.9 pg (27.0-32.0); Mean Corpuscular Volume 86.5 fL (81-99); Mean Platelet Vol. 11.9 fl (6.2-12.0); Monocyte# 0.94 X10^3/uL; Monocyte% 8.9 % (0-10); NRBC Flagged by Analyzer 0 % (0-5); Neutrophil # 6.85 X10^3/uL (2.7-7.7); Neutrophil % 64.6 % (47-70); Platelet Count 263 K/mm3 (150-450); RBC Distribution Width CV 12.7 % (11.6-14.6); RBC Distribution Width SD 39.9 fl (35.1-43.9); Red Blood Count 4.88 M/mm3 (4.2-5.4); White Blood Count 10.6 K/mm3 (4.4-11.0)
--- NOTE | 2022-10-19 07:43 | PN.HOSP_ITS ---
Reason for Visit Reason for Visit: Diagnoses Hypertensive emergency (10/18/22) Cerebral infarction, unspecified (10/18/22) Subjective Subjective Patient had left occipital infarct in June 2022. She was again admitted with acute right lacunar ischemic infarct in the right posterior periventricular white matter. The patient was discharged on dual antiplatelet agent and high intensity statin. Patient had full work-up done at that time. Objective Data Objective Data Vital Signs: Vital Signs Temp Pulse Resp BP Pulse Ox O2 Del Method 98.5 F 70 18 201/98 H 99 Room Air 10/19/22 06:20 10/19/22 06:20 10/19/22 06:20 10/19/22 06:20 10/19/22 06:20 10/19/22 06:20 Oxygen Delivery Method Room Air Weight: 146 lb 6.191 oz Body Mass Index (BMI) 27.6 Intake & Output: Intake and Output for Last 24 Hours 10/17/22 10/18/22 10/19/22 23:59 23:59 23:59 Intake Total 300 / 300 Output Total 400 / 400 Balance -100 / -100 Lab / Micro Data Result Diagrams: 10/19/22 06:30 10/19/22 06:30 Labs: Laboratory Results - last 24 hr 10/18/22 19:35: WBC 12.2 H, RBC 4.45, Hgb 12.6, Hct 38.3, MCV 86.1, MCH 28.3, MCHC 32.9, RDW Std Deviation 39.5, RDW Coeff of Jovani 12.6, Plt Count 275, MPV 11.4, Immature Gran % (Auto) 0.400, Neut % (Auto) 72.2 H, Lymph % (Auto) 17.9 L, [place] % (Auto) 7.5, Eos % (Auto) 1.4, Baso % (Auto) 0.6, Absolute Neuts (auto) 8.8 H, Absolute Lymphs (auto) 2.18, Nucleated RBC % 0 10/18/22 19:35: PT 13.1, INR 1.0, APTT 25.8 10/18/22 19:35: Sodium 138, Potassium 3.5, Chloride 108 H, Carbon Dioxide 25.0, Anion Gap 5, BUN 22 H, Creatinine 1.25 H, Estim Creat Clear Calc 38.82, Est GFR (MDRD) Af Amer 57 L, Est GFR (MDRD) Non-Af 47 L, BUN/Creatinine Ratio 17.6, Glucose 128 H, Calcium 9.1, Troponin I High Sens 7 10/19/22 06:30: WBC 10.6, RBC 4.88, Hgb 13.6, Hct 42.2, MCV 86.5, MCH 27.9, MCHC 32.2, RDW Std Deviation 39.9, RDW Coeff of Jovani 12.7, Plt Count 263, MPV 11.9, Immature Gran % (Auto) 0.300, Neut % (Auto) 64.6, Lymph % (Auto) 21.2, [place] % (Auto) 8.9, Eos % (Auto) 4.2, Baso % (Auto) 0.8, Absolute Neuts (auto) 6.9, Absolute Lymphs (auto) 2.24, Nucleated RBC % 0 Radiography Diagnostic Testing: Radiology Impression Brain CT 10/18/22 19:44 IMPRESSION: There are no acute findings. Chronic involutional changes of the brain. Head/Neck CTA 10/18/22 19:44 IMPRESSION: 1. There is mild atherosclerotic plaque formation of the origin of the right internal carotid artery with less than 50% cross sectional diameter stenosis. ALL ABOVE CRITERIA BY NASCET. 2. There is mild atherosclerotic plaque formation of the origin of the left internal carotid artery with less than 50% cross sectional diameter stenosis. ALL ABOVE CRITERIA BY NASCET. 3. There is calcified plaque formation of the right cavernous carotid artery, with a mild stenosis (less than 50%). ALL ABOVE CRITERIA BY NASCET. 4. There is calcified plaque formation of the left cavernous carotid artery, with a mild stenosis (less than 50%). ALL ABOVE CRITERIA BY NASCET. N.B. : The above Results were Read Back by Juanito Song MD to Courtney Gaxiola MD, and understanding confirmed on 10/18/2022 20:14:51 (ET). Electronically Signed: Juanito Song MD at 20:15 EDT , ADDENDUM: 10/18/222021 IMPRESSION: 1. There is mild atherosclerotic plaque formation of the origin of the right internal carotid artery with less than 50% cross sectional diameter stenosis. ALL ABOVE CRITERIA BY NASCET. 2. There is mild atherosclerotic plaque formation of the origin of the left internal carotid artery with less than 50% cross sectional diameter stenosis. ALL ABOVE CRITERIA BY NASCET. 3. There is calcified plaque formation of the right cavernous carotid artery, with a mild stenosis (less than 50%). ALL ABOVE CRITERIA BY NASCET. 4. There is calcified plaque formation of the left cavernous carotid artery, with a mild stenosis (less than 50%). ALL ABOVE CRITERIA BY NASCET. N.B. : The above Results were Read Back by Juanito Song MD to Courtney Gaxiola MD, and understanding confirmed on 10/18/2022 20:14:51 (ET). Electronically Signed: Juanito Song MD at 20:15 EDT , Chest X-Ray 10/18/22 20:15 IMPRESSION: No acute findings in the chest. Electronically Signed: Juanito Song MD at 20:27 EDT , Physical Exam Narrative Physical exam: General: Alert, Oriented x3, Cooperative HEENT: Atraumatic, PERRLA, EOMI, Normocephalic. 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 Oral: Oral mucosa moist. No Gingival or Mucosal Lesions/ Ulcerations Neck: Supple, No JVD, Negative Carotid Bruits Lungs: Air entry diminished in bilateral lung bases. No crepitation/rhonchi Cardiovascular: Regular rate, Regular Rhythm, Normal S1, Normal S2, No murmurs Abdomen: Bowel Sounds Present, Soft, Non Tender, Non-Distended : No renal angle tenderness. No suprapubic tenderness. Extremities: No edema, Capillary Refill Less than 3 Seconds Skin: No rashes, No breakdown Musculoskeletal: Left upper and lower extremity weakness from old stroke. No Tenderness to Palpation of Joints or Extremities Neurological: Cranial nerves II-XII grossly intact, DTR 2+/4. No acute change in speech, swallow, dysarthria or acute language deficit. Psych/Mental Status: Flat affect. Assessment & Plan Assessment/Plan (1) CVA (cerebral vascular accident): (2) Hypertensive emergency: PLAN: Plan This 52-year-old female admitted after she had a fall and felt like left-sided weakness. Patient had a stroke alert in the ED and was evaluated by [facility] teleneurologist. 1. Concern for new stroke with history of recent recurrent multiple ischemic infarct in 2022: Patient is being admitted in PCU. Patient had left occipital infarct in June 2022. She was again admitted with acute right lacunar ischemic infarct in the right posterior periventricular white matter. This time patient had CTA head and neck which shows less than 50% bilateral ICA and ECA. MRI brain, not officially reported. [facility] teleneurologist impression was that there is no new deficit or worsening than her baseline and risk-benefit ratio of thrombolytic high therefore thrombolytic was not given. Patient on full stroke work-up with PT OT and speech evaluation. Last lipid panel on 09/25/22: Triglycerides 63; cholesterol 144; LDL: 78; VLDL 13; HDL 53. Patient has a history of acute liver injury. atorvastatin 40 mg nightly. On dual antiplatelet agent. PT, OT, speech therapy/swallow evaluation and management, nursing NIH stroke scale, BP and glucose monitoring and control as per stroke protocol. Permissive hypertension. Control blood pressure with labetalol for systolic b lood pressure of more than 220 or diastolic blood pressure of more than 120. Echocardiogram on 09/24/2022 showed severe concentric left ventricular hypertrophy. Left ventricular EF was 75%. Normal right and left atria 2. Hypertensive emergency Patient with severely elevated blood pressure with highest systolic blood pressure of 224 and highest diastolic blood pressure of 106. On IV labetalol an d hydralazine as needed as per stroke protocol. 3. Chronic nicotine/tobacco use and history of polysubstance use:On her previous admission her urine drug screen was positive for amphetamines as well as MDMA and cannabis. Patient counseled to stop smoking. 4. DVT prophylaxis: Discontinue if platelet count drops less than 50,000 or hemoglobin less than 8 g% 4. Charges/Coding Visit Charges Inpatient E&M: 19090 Subs Hosp L2
[2022-10-19 07:48] LABS: ALB/GLOB Ratio 0.7 RATIO (0.9-2.4); AST(SGOT) 14 U/L (15-37); Alanine Aminotransfer ALT/SGPT 16 U/L (13-56); Alkaline Phosphatase 41 U/L (45-117); Anion Gap 6 (5-15); BUN 17 mg/dL (7-18); BUN/Creat Ratio 16.8 RATIO (10-20); Chloride 110 mmol/L (98-107); Creatinine, Serum 1.01 mg/dL (0.55-1.02); EST Glomerular Filtration Rate 61 mL/min (>60); Est Glom Filt Rate - Afr Amer 73 mL/min (>60); Estimated Creatinine Clearance 48.05 ml/min; Globulin 4.2 g/dL (2.2-4.2); Glucose 81 mg/dL (74-106); Potassium 3.6 mmol/L (3.5-5.1); Protein, Total 7.2 g/dL (6.4-8.2); Sodium Level 136 mmol/L (136-145)
[2022-10-19] MEDS: Aspirin 81 MG TAB.CHEW PO (09:07)
[2022-10-19] MEDS: Clopidogrel Bisulfate 75 MG Tablet PO (09:08)
--- NOTE | 2022-10-19 10:15 | CASEMGMT ---
RN?CM?AIRPLANE COVERER?CM?to room to meet with patient for initial transition planning/care coordination?assessment.?RN?CM?introduced self and role at [facility].? Pt voices understanding and consents to?assessment?at this time.? Pt sitting up in chair in room in no distress at this time.? Pt is A/O at this time and answers all questions appropriately.?? Care providers, pharmacy, and demographics verified/updated at this time. PCP: No PCP. RN ALONDRA spoke w/pt's dtr, Yashira, last admission @ beginning of September and plan was to get pt in for an appt w/a PCP to get established as a new pt. Pt states she misplaced the paperwork and I didn't know what I was supposed to do, so the appt didn't get made Specialists: none Preferred Pharmacy: [facility] Retail Insurance: [employer] Prescription Benefit:?Yes Living Will/HPOA:?Pt does not currently have LW/HCPOA and is interested in completing. Sayra PUCKETT made aware. Pt states she would like her dtr, Yashira, to be HCPOA and her sig other, Demetrius, to be 1st alternative. LNOK: Pt has 2 dtrs and a son. Dtr, Yashira, lives nearby and is involved. Pt has a dtr that lives @ an F and she does not have a relationship w/her son. Living Arrangements: Lives alone in ground-floor apt w/no steps to enter. Pt states was indep w/ADL's and IADL's prior to admission. Transportation: Yashira DME: ? Denies using or having any DME HHC/SNF: No hx of either. Pt states when she got up to the chair today that it was more difficult than she anticipated and she is afraid of walking. She would like to go to [facility] RU @ d/c, if possible. She states if RU not available, then she would like to go to the facility her dtr lives @ but she does not remember the name of it. She states it is on [address] [place]. Sayra PUCKETT, made aware. Pt states she smokes 1 PPD, drink ETOH about once a month, smokes marijuana daily, and just recently relapsed and used Meth about 2-3 days ago. She is interested in resources to stop. SW, Sayra, made aware. ?? PLAN:??[facility] RU vs SNF. Willem BSN?RN?CM
[2022-10-19] MEDS: Multivitamins,Therapeutic Tablet 1 TABLET PO (11:06)
[2022-10-19] MEDS: Polyethylene Glycol 3350 17 GM PACKET PO (11:06)
--- NOTE | 2022-10-19 11:30 | MRI_ITS ---
EXAM: MR HEAD WITHOUT INTRAVENOUS CONTRAST CLINICAL INDICATION: CVA. Left-sided weakness. TECHNIQUE: Multiplanar and multisequence MR images of the brain were obtained without intravenous contrast. COMPARISON: CT head without contrast and CTA head and neck with contrast 10/18/2022. FINDINGS: BRAIN AND EXTRA-AXIAL SPACES: Abnormal linear diffusion restriction in the lateral aspect of the right thalamus and including the medial meniscus of the right side of the midbrain. They are also visible on the T2 FLAIR sequence. They''re consistent with subacute ischemic infarct. The tiny subacute lacunar ischemic infarct in the right posterior periventricular white matter is not obvious in today''s exam. Old lacunar cystic infarcts in the right posterior periventricular white matter and in both forceps major. Confluent T2 FLAIR hyperintensity foci in the white matter of both cerebral hemispheres are chronic white matter ischemic changes. Old lacunar linear cystic infarct in the right centrum semiovale. No intra- or extra-axial hemorrhage. No intracranial mass or mass effect. Posterior fossa structures are unremarkable. No hydrocephalus. Basal cisterns are patent. SELLA: Unremarkable. Normal sella turcica, pituitary gland, infundibular stalk, optic chiasm and hypothalamus. AUDITORY SYSTEM: Unremarkable. The internal auditory canals are patent. BONES/JOINTS: Unremarkable. No discrete lytic or blastic abnormalities. SINUSES: Unremarkable as visualized. Clear. MASTOID AIR CELLS: Unremarkable as visualized. Clear. ORBITS: Unremarkable as visualized. Both globes, extraocular muscles, optic nerves and retrobulbar fat appear unremarkable. VASCULATURE: Unremarkable as visualized. Normal flow voids in the major intracranial circulation. MRI/Brain without Contrast IMPRESSION: 1. Subacute linear ischemic infarct in the lateral aspect of the right thalamus including the adjacent medial lemniscus of the right midbrain are new findings when compared to 09/24/2022. 2. Prior tiny subacute lacunar ischemic infarct in the right posterior periventricular white matter is not visible on today''s exam when compared to 09/24/2022. 3. Confluent chronic white matter ischemic changes in both cerebral hemispheres and multiple small old lacunar cystic infarcts in the white matter of both cerebral hemispheres are unchanged. N.B. : The above Results were Read Back by Emery Lynn MD to Shilpa Renteria RN, and understanding confirmed on 10/19/2022 14:13:21 (ET). Electronically Signed: Emery Lynn MD at 13:55 EDT ,
--- NOTE | 2022-10-19 11:47 | CASEMGMT ---
Discharge Planning Referral sent to [facility] via [facility] Rosaline Burns
[2022-10-19] MEDS: LORazepam 2 MG/ML Syringe 0.5 MG IV (11:50)
--- NOTE | 2022-10-19 11:54 | CASEMGMT ---
Social Work SW met w/pt, as per CM pt would like to go to our inpt rehab or [facility], wants resources for drug use, and wants to do POA papers. SW initially spoke w/pt about placement. She is agreeable to [facility] rehab or [facility], states her daughter Pat Taylor is at [facility]. SW did provide to pt lists of both acute rehab and alf facilities in network w/pt's insurance, with quality and resource use data, and in pt's preferred geographic area. Pt continues to state she wants inpt rehab here or [facility], otherwise will go home. SW provided information also to pt on [facility] . Pt states she has been to [facility] in the past. Pt also states she can't pay her bills. SW inquired what bills. Pt then states she has [employer] and has help with utilities through [employer], but has no income. SW inquired if she has applied for disability, she has not. SW explained will bring in additional information. SW then brought back to pt information on [employer], [employer], [employer], and [facility]. SW also gave pt information on POA. Referrals made to [facility] inpt rehab and to [facility]. SW will continue to follow. BELINDA Kelley
--- NOTE | 2022-10-19 12:55 | CASEMGMT ---
SW received a message from [facility] and patient was declined for the rehab unit. Elvia Benavidez MSW SOPH[place]
--- NOTE | 2022-10-19 13:24 | CASEMGMT ---
Discharge Planning Patient was accepted by Fern[facility] Br[facility]. Ericert to be initiated today. Rosaline Burns
--- NOTE | 2022-10-19 14:05 | NURSING ---
pt is refusing to cooperate with the NIH assessment for 1400.
--- NOTE | 2022-10-19 14:36 | CASEMGMT ---
Discharge Planning Patient and her significant other notified of acceptance by [facility]. Patient is pleased with plan.
--- NOTE | 2022-10-19 16:18 | CHAPLAIN ---
Type of Pastoral Visit _x__ Initial Visit ___ Follow-up Visit ___ On-call Visit ___ General Patient Visit ___ Spiritual Assessment ___ Family Conference ___ Bereavement ___ Rapid Response ___ Code Blue ___ Other (describe below) Pastoral Care Referral From _x__ Patient ___ Family ___ Nurse ___ Physician ___ Construction Ironworker ___ Slasher Tender Helper ___ Other (describe below) Sacrament/Intervention _x__ Active listening ___ Anointing ___ Evangelical ___ Bereavement ___ Communion ___ Mago exploration ___ ___ Life review _x__ Prayer ___ Reconciliation ___ Sacrament of Sick _x__ Supportive presence ___ Wedding ___ Other (describe below) Pastoral Comments boyfriend is in room with patient; pt states how tired she is and that I am an addict and so is he; pt says that her life is bad and that her family have themselves; pt says the only thing you can do is pray for me; presence, affirming words on getting help, encouragement to SO to seek help also for detox; prayer
--- NOTE | 2022-10-19 19:02 | NURSING ---
Reviewed charting with Butch Alexander RN
[2022-10-19] MEDS: Atorvastatin Calcium 40 MG Tablet PO (20:49)
[2022-10-20] VITALS (14 sets, daily range): BP systolic 115–209; BP diastolic 65–125; PULSE 71–91; RESP 16–18; TEMP 36.5–36.8; O2SAT 95–100; BMI 27.6
--- NOTE | 2022-10-20 00:51 | NURSING ---
Addendum entered by Madeline Clay 10/20/22 03:17: Pt is refusing to not cooperate to complete NIH at this time, Dr. Fritz updated. Vitals signs updated. Original Note: Pt not cooperating to complete NIH at this time, Dr. Fritz updated.
--- NOTE | 2022-10-20 05:20 | NURSING ---
Pt still refusing to cooperate for [facility] due at 0440.
[2022-10-20 06:05] LABS: Absolute Lymphocyte Count 0.96 X10^3/uL (0.83-4.51); Basophil# 0.06 X10^3/uL; Basophil% 0.7 % (0-1); Eosinophil# 0.61 X10^3/uL; Eosinophils% 7.3 % (0-5); Hematocrit 37.6 % (37-47); Hemoglobin 12.2 g/dL (12.0-15.0); Lymphocyte # 0.96 X10^3/ul (0.83-4.51); Lymphocyte % 11.4 % (19-41); Mean Corp Hgb Conc 32.4 g/dL (32-36); Mean Corpuscular Hgb 27.9 pg (27.0-32.0); Mean Platelet Vol. 11.5 fl (6.2-12.0); Monocyte# 0.76 X10^3/uL; NRBC Flagged by Analyzer 0 % (0-5); Neutrophil % 71.4 % (47-70); Platelet Count 264 K/mm3 (150-450); RBC Distribution Width CV 12.7 % (11.6-14.6); RBC Distribution Width SD 39.8 fl (35.1-43.9); Red Blood Count 4.37 M/mm3 (4.2-5.4); White Blood Count 8.4 K/mm3 (4.4-11.0)
[2022-10-20 06:35] LABS: Anion Gap 7 (5-15); BUN 24 mg/dL (7-18); BUN/Creat Ratio 19.4 RATIO (10-20); Calcium,Total 8.7 mg/dL (8.5-10.1); Chloride 109 mmol/L (98-107); Creatinine, Serum 1.24 mg/dL (0.55-1.02); EST Glomerular Filtration Rate 48 mL/min (>60); Est Glom Filt Rate - Afr Amer 58 mL/min (>60); Estimated Creatinine Clearance 39.14 ml/min; Glucose 92 mg/dL (74-106); Potassium 3.8 mmol/L (3.5-5.1); Sodium Level 140 mmol/L (136-145)
--- NOTE | 2022-10-20 07:17 | ECHOTEE_ITS ---
Reason For Study: RECURRENT ISCHEMIC STROKES Medication ASHLIE probe 6VT-D (SN [id number]) passed without difficulty. No complications were noted. Cetacaine Topical [place] given X3 orally. Versed 1 mg given slow IVP. Fentanyl 50 mcg given slow IVP. Performed a rapid injection of agitated mix of 9 cc saline and 1cc air to assess for atrial septal defect. Left Ventricle Normal LV size. Moderate concentric left ventricular hypertrophy. Left ventricular systolic function is normal. The estimated ejection fraction is 60 %. No regional wall motion abnormalities noted. Right Ventricle Normal RV size. Normal systolic function. Atria Normal atrial septum. Bubble contrast study negative for right to left interatrial shunt. Normal left atrium. No thrombus is detected in the left atrial appendage. Normal right atrium. Mitral Valve Normal mitral valve. Mild (1+) eccentric mitral valve insufficiency. Tricuspid Valve Normal tricuspid valve. Mild tricuspid valve insufficiency. Aortic Valve Normal aortic valve. Trisinus/trileaflet aortic valve. Pulmonic Valve Normal pulmonic valve. Vessels Normal aortic root. Pericardium No pericardial effusion. ECHO/Echo Transesophageal (ASHLIE) Interpretation Summary Normal LV size. Left ventricular systolic function is normal. Moderate concentric left ventricular hypertrophy. Bubble contrast study negative for right to left interatrial shunt. No thrombus is detected in the left atrial appendage. Ordering Physician: Roger Alves Referring Physician: Janet Bonilla Performed By: Ramona Crooks, RDCS, RVT
[2022-10-20] MEDS: 0.9% Saline Lock 10 ML Syringe IV ×3 (10:03→13:32)
[2022-10-20] MEDS: Ketorolac 15 MG/ML Vial IV (10:03)
--- NOTE | 2022-10-20 11:03 | PCM.TXEXTCAR ---
Diet Diet Order/Speech Therapy: 10/20/22 00:01 NPO [Diet: Nothing Per Oral] Is pt able to select menu?: Yes Diet Comments: for ASHLIE tomorrow a.m. Routine Orders/Code Status Suppository Type: Dulcolax 10mg Suppository Frequency: Daily PRN Code Status: Full Code Therapies Weight Bearing: Weight bearing as tolerated Extremity Affected:: Bilateral Lower Physical Therapy: Eval and Treat Occupational Therapy: Eval and Treat Speech Therapy: Eval and Treat Problem/Diagnosis (1) CVA (cerebral vascular accident): Status: Acute Code(s): I63.9 - Cerebral infarction, unspecified (2) Hypertensive emergency: Status: Acute Code(s): I16.1 - Hypertensive emergency Allergies/Procedures Done in Hospital Allergies Penicillins Allergy (Verified 09/24/22 08:50) Hives Type of Care/Length of Stay Estimated LOS: Convalescent Care Less Than 30 days Type of Care Needed: Skilled Rehab Potential: Good Prognosis: Good Additional Orders/Day of Discharge Day of Discharge: 10/20/22 Dietary and Speech Recommendations Dietitian Recommendations/Changes: Continue cardiac diet; ONS if PO fails at meals. Discharge Plan Admission Admit Date/Time: 10/18/22 21:05 Primary Reason for Your Visit: Right thalamus ischemic stroke Attending Provider: Roger Alves Primary Care Provider: Desean Bonilla Consulting Providers: Hakeem Bolton Instructions Additional Instructions / Restrictions: Advised to keep SBP 1 50-1 60 for 1 week and then decrease to 130 over next 2 to 4 weeks. Discharge Orders/Prescriptions Prescriptions: New atorvastatin 40 mg Tablet 80 mg PO QHS Qty: 0 0RF sennosides-docusate sodium [Stool Softener-Stimulant Laxat] 8.6-50 mg Tablet 2 tab PO BID PRN PRN (Reason: Constipation) Qty: 0 0RF Xarelto 2.5 mg tablet 2.5 mg PO BID 30 Days Qty: 60 2RF Continued aspirin 81 mg tablet,chewable 81 mg PO DAILY Label Comments: TAKE 1 TABLET BY MOUTH EVERY DAY multivitamin Capsule 1 cap PO DAILY polyethylene glycol 3350 17 gram powder in packet 17 g PO DAILY nicotine 21 mg/24 hr patch 24 hour 21 mg transdermal DAILY 30 Days Qty: 30 0RF Changed lisinopril 20 mg tablet 40 mg PO DAILY 30 Days Qty: 0 0RF Label Comments: TAKE 1 TABLET BY MOUTH EVERY DAY Rx Instructions: Suggested to keep systolic blood pressure 1 50-160 FOR 1 week and then decrease to 130 mg over the next 2 to 4 weeks Other Ambulatory Orders: 30 Day Event Recorder Preventi (Urgent) Timeframe: 1 Month Facility: [facility] - Location: Cardiovascular Services Ordered By: Dr. Roger Alves Referrals / Follow Up: Desean Bonilla MD [Primary Care Provider] - Disposition Disposition (needs filled in before D/C Order can be placed): Custodial Facility
--- NOTE | 2022-10-20 12:46 | PN.HOSP_ITS ---
Reason for Visit Reason for Visit: Diagnoses Hypertensive emergency (10/18/22) Cerebral infarction, unspecified (10/18/22) Subjective Subjective Follow-up for acute on recurrent ischemic stroke. Objective Data Objective Data Vital Signs: Vital Signs Temp Pulse Resp BP Pulse Ox O2 Del Method 97.7 F L 74 18 195/94 H 98 Room Air 10/20/22 12:20 10/20/22 12:20 10/20/22 12:20 10/20/22 12:20 10/20/22 12:20 10/20/22 12:20 Oxygen Delivery Method Room Air Weight: 146 lb 6.191 oz Body Mass Index (BMI) 27.6 Intake & Output: Intake and Output for Last 24 Hours 10/18/22 10/19/22 10/20/22 23:59 23:59 23:59 Intake Total 860 / 1100 240 / 240 Output Total 800 / 1000 200 / 200 Balance 60 / 100 40 / 40 Lab / Micro Data Result Diagrams: 10/20/22 05:25 10/20/22 05:25 Labs: Laboratory Results - last 24 hr 10/20/22 05:25: WBC 8.4, RBC 4.37, Hgb 12.2, Hct 37.6, MCV 86.0, MCH 27.9, MCHC 32.4, RDW Std Deviation 39.8, RDW Coeff of Jovani 12.7, Plt Count 264, MPV 11.5, Immature Gran % (Auto) 0.200, Neut % (Auto) 71.4 H, Lymph % (Auto) 11.4 L, [place] % (Auto) 9.0, Eos % (Auto) 7.3 H, Baso % (Auto) 0.7, Absolute Neuts (auto) 6.0, Absolute Lymphs (auto) 0.96, Nucleated RBC % 0 10/20/22 05:25: PT 13.0, INR 1.0 10/20/22 05:25: Sodium 140, Potassium 3.8, Chloride 109 H, Carbon Dioxide 24.0, Anion Gap 7, BUN 24 H, Creatinine 1.24 H, Estim Creat Clear Calc 39.14, Est GFR (MDRD) Af Amer 58 L, Est GFR (MDRD) Non-Af 48 L, BUN/Creatinine Ratio 19.4, Glucose 92, Calcium 8.7 Radiography Diagnostic Testing: Radiology Impression Brain MRI 10/19/22 11:30 IMPRESSION: 1. Subacute linear ischemic infarct in the lateral aspect of the right thalamus including the adjacent medial lemniscus of the right midbrain are new findings when compared to 09/24/2022. 2. Prior tiny subacute lacunar ischemic infarct in the right posterior periventricular white matter is not visible on today''s exam when compared to 09/24/2022. 3. Confluent chronic white matter ischemic changes in both cerebral hemispheres and multiple small old lacunar cystic infarcts in the white matter of both cerebral hemispheres are unchanged. Transesophageal Echocardiogram 10/20/22 07:17 Interpretation Summary Normal LV size. Left ventricular systolic function is normal. Moderate concentric left ventricular hypertrophy. Bubble contrast study negative for right to left interatrial shunt. No thrombus is detected in the left atrial appendage. Ordering Physician: Roger Alves Referring Physician: Janet Bonilla Performed By: Ramona Crooks, TERRIE, RVT Physical Exam Narrative Seen and examined. Patient more agitated, refusing NIH stroke scale, grumpy and abusive to the nurses. She complains of right-sided headache and Toradol was given. She further had ASHLIE Physical exam: General: Alert, Oriented x3, Cooperative HEENT: Atraumatic, PERRLA, EOMI, Normocephalic. 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 Oral: Oral mucosa moist. No Gingival or Mucosal Lesions/ Ulcerations Neck: Supple, No JVD, Negative Carotid Bruits Lungs: Air entry diminished in bilateral lung bases. No crepitation/rhonchi Cardiovascular: Regular rate, Regular Rhythm, Normal S1, Normal S2, No murmurs Abdomen: Bowel Sounds Present, Soft, Non Tender, Non-Distended : No renal angle tenderness. No suprapubic tenderness. Extremities: No edema, Capillary Refill Less than 3 Seconds Skin: No rashes, No breakdown Musculoskeletal: Left upper and lower extremity weakness from old stroke. No Tenderness to Palpation of Joints or Extremities. Neurological: Cranial nerves II-XII grossly intact, DTR 2+/4. No acute change in speech, swallow, dysarthria or acute language deficit. Psych/Mental Status: Flat affect. Agitated. Assessment & Plan Assessment/Plan (1) CVA (cerebral vascular accident): (2) Hypertensive emergency: PLAN: Plan This 52-year-old female admitted after she had a fall and felt like left-sided weakness. Patient had a stroke alert in the ED and was evaluated by [facility] telene urologist. 1. Concern for new stroke with history of recent recurrent multiple ischemic infarct in 2022: Patient is being admitted in PCU. Patient had left occipital infarct in June 2022. She was again admitted with acute right lacunar ischemic infarct in the right posterior periventricular white matter. This time patient had CTA head and neck which shows less than 50% bilateral ICA and ECA. MRI brain, not officially reported. [facility] teleneurologist impression was that there is no new deficit or worsening than her baseline and risk-benefit ratio of thrombolytic high therefore thrombolytic was not given. Patient on full stroke work-up with PT OT and speech evaluation. Last lipid panel on 09/25/22: Triglycerides 63; cholesterol 144; LDL: 78; VLDL 13; HDL 53. Patient had recent history of acute liver injury. atorvastatin 40 mg nightly. On dual antiplatelet agent. PT, OT, speech therapy/swallow evaluation and management, nursing NIH stroke scale, BP and glucose monitoring and control as per stroke protocol. Permissive hypertension. Control blood pressure with labetalol for systolic blood pressure of more than 220 or diastolic blood pressure of more than 120. Echocardiogram on 09/24/2022 showed severe concentric left ventricular hypertrophy. Left ventricular EF was 75%. Normal right and left atria. MRI brain reported subacute linear ischemic infarct in lateral aspect of right thalamus including adjacent medial left discussed of right midbrain. Prior tiny subacute lacunar ischemic infarct of right posterior periventricular white matter. 10/20: Patient was seen by [facility] neurology and requested ASHLIE. Neurologist impression was acute right thalamus infarct with worsening left-sided weakness numbness and clumsiness. This might be related to her methamphetamine use and not adherence with aspirin Plavix and statin. With bilateral infarct cardioembolic source was also consideration. I personally discussed with the helper animal laboratory Dr. Clarke and ASHLIE was done and reported normal. Bubble contrast study negative for R to L interatrial shunt and no thrombus detected in atrial appendage. Patient does not have fever and ASHLIE was negative for vegetation therefore I do not think she needs blood cultures. U tox ordered. Atorvastatin dose increased to 80 mg daily. After discussion with helper animal laboratory Dr. Clarke we agreed on aspirin and low-dose Xarelto 2.5 mg twice daily as per the new study of association of low-dose rivaroxaban with aspirin, Compass trial published in [facility], March 06, 2019. Therefore patient will be discharged on aspirin and low-dose Xarelto, high intensity statin and 30-day event monitor. We will discontinue Plavix at time of discharge. 2. Hypertensive emergency Patient with severely elevated blood pressure with highest systolic blood pressure of 224 and highest diastolic blood pressure of 106. On IV labetalol and hydralazine as needed as per stroke protocol. 10/20:Patient on permissive hypertension duration. 3. Chronic nicotine/tobacco use and history of polysubstance use:On her previous admission her urine drug screen was positive for amphetamines as well as MDMA and cannabis. Patient counseled to stop smoking. U tox ordered. 4. DVT prophylaxis: Discontinue if platelet count drops less than 50,000 or hemoglobin less than 8 g% 4. Total time of the visit including total time spent in counseling or coordination of care, (more than 50% of the total time, spent in obtaining medical information from nurses and other ancillary care providers,explaining to the patient about labs, imaging, diagnosis and management of active complex medical conditions), medical record review, discussion with helper animal laboratory and [facility] neurol ogist, review of labs and imaging and ASHLIE is 55 minutes Charges/Coding Visit Charges Inpatient E&M: 91709 Subs Hosp L3
[2022-10-20] MEDS: hydrALAZINE 20 MG/ML Vial 5 MG IV (12:54)
--- NOTE | 2022-10-20 13:16 | CASEMGMT ---
[facility] notified physician and RN. Patient will be getting fluids for a few hours so will set up transport for around 6p. Elvia CORTES
--- NOTE | 2022-10-20 13:24 | DS.PCM_ITS ---
Providers Date of Admission: 10/18/22 Date of Discharge: 10/20/22 Primary Care Physician: Dr. Desean Bonilla MD Reason For Visit: ACUTE CVA Diagnosis Discharge Diagnosis (1) CVA (cerebral vascular accident): Status: Acute Code(s): I63.9 - Cerebral infarction, unspecified (2) Hypertensive emergency: Status: Acute Code(s): I16.1 - Hypertensive emergency Plan This 52-year-old female admitted after she had a fall and felt like left-sided weakness. Patient had a stroke alert in the ED and was evaluated by [facility] t eleneurologist. 1. Concern for new stroke with history of recent recurrent multiple ischemic infarct in 2022: Patient is being admitted in PCU. Patient had left occipital infarct in June 2022. She was again admitted with acute right lacunar ischemic infarct in the right posterior periventricular white matter. This time patient had CTA head and neck which shows less than 50% bilateral ICA and ECA. MRI brain, not officially reported. [facility] teleneurologist impression was that there is no new deficit or worsening than her baseline and risk-benefit ratio of thrombolytic high therefore thrombolytic was not given. Patient on full stroke work-up with PT OT and speech evaluation. Last lipid panel on 09/25/22: Triglycerides 63; cholesterol 144; LDL: 78; VLDL 13; HDL 53. Patient had recent history of acute liver injury. atorvastatin 40 mg nightly. On dual antiplatelet agent. PT, OT, speech therapy/swallow evaluation and management, nursing NIH stroke scale, BP and glucose monitoring and control as per stroke protocol. Permissive hypertension. Control blood pressure with labetalol for systolic blood pressure of more than 220 or diastolic blood pressure of more than 120. Echocardiogram on 09/24/2022 showed severe concentric left ventricular hypertrophy. Left ventricular EF was 75%. Normal right and left atria. MRI brain reported subacute linear ischemic infarct in lateral aspect of right thalamus including adjacent medial left discussed of right midbrain. Prior tiny subacute lacunar ischemic infarct of right posterior periventricular white matter. 10/20: Patient was seen by [facility] neurology and requested ASHLIE. Neurologist impression was acute right thalamus infarct with worsening left-sided weakness numbness and clumsiness. This might be related to her methamphetamine use and not adherence with aspirin Plavix and statin. With bilateral infarct cardioembolic source was also consideration. I personally discussed with the dial screw assembler Dr. Clarke and ASHLIE was done and r eported normal. Bubble contrast study negative for R to L interatrial shunt and no thrombus detected in atrial appendage. Patient does not have fever and ASHLIE was negative for vegetation therefore I do not think she needs blood cultures. U tox ordered. Atorvastatin dose increased to 80 mg daily. After discussion with dial screw assembler Dr. Clarke we agreed on aspirin and low-dose Xarelto 2.5 mg twice daily as per the new study of association of low-dose rivaroxaban with aspirin, Compass trial published in [facility], March 06, 2019. Therefore patient will be discharged on aspirin and low-dose Xarelto, high intensity statin and 30-day event monitor. Plavix is discontinued. 2. Hypertensive emergency Patient with severely elevated blood pressure with highest systolic blood pressure of 224 and highest diastolic blood pressure of 106. On IV labetalol and hydralazine as needed as per stroke protocol. 10/20:Patient on permissive hypertension duration. BP still high. She had hydralazine in the morning. Labetalol 20 mg IV ordered. Lisinopril dose increased to 40 mg daily.Patient BP was decreased to 150/82 and advised to continue around systolic 150 for next 1 week. 3. Chronic nicotine/tobacco use and history of polysubstance use: On her previous admission her urine drug screen was positive for amphetamines as well as MDMA and cannabis. Patient counseled to stop smoking. U tox ordered. 10/21: Patient images methamphetamine 1 to 2 g daily. This was substantiated during previous hospitalization in [facility]. I spent good time in discussion with patient to quit amphetamine and ecstasy and cannabis as I think this is the cause for recurrent stroke. Patient is being discharged to a SNF. 4. DVT prophylaxis: Discontinue if platelet count drops less than 50,000 or hemoglobin less than 8 g% 4. Discharge medication reconciliation done. Discharge follow-up instructions completed. Discharge process discussed with the patient and all questions were answered to patient's satisfaction. Discharged to SNF. Total time spent, exact 35 minutes on discharge meds reconciliation, exami nation, coordination of care with nurses and ancillary staff, review of imaging and blood test and discussion with the patient on follow-up instructions. Medications at Discharge Home Medications aspirin 81 mg chewable tablet 81 mg PO DAILY [facility] 07/02/22 multivitamin 1 cap PO DAILY supplement 09/24/22 polyethylene glycol 3350 17 gram oral powder packet 17 g PO DAILY Check with primary doctor 10/18/22 atorvastatin 40 mg tablet 80 mg PO QHS #0 tabs 10/20/22 lisinopril 20 mg tablet 40 mg PO DAILY blood pressure 30 days #0 tabs 10/20/22 nicotine 21 mg/24 hr daily transdermal patch 21 mg transdermal DAILY Check with primary doctor 30 days #30 ea 10/20/22 rivaroxaban 2.5 mg tablet (Xarelto) 2.5 mg PO BID 30 days #60 tabs 10/20/22 sennosides 8.6 mg-docusate sodium 50 mg tablet (Stool Softener-Stimulant Laxative) 2 tab PO BID PRN PRN Constipation #0 tabs 10/20/22 Physical Exam Narrative Please see progress note of the same date for physical exam findings. Weight / BMI Weight Weight: 146 lb 6.191 oz Body Mass Index (BMI) 27.6 ABG / Lab / Microbiology Data Result Diagrams: 10/20/22 05:25 10/20/22 05:25 Laboratory: Laboratory Results - last 24 hr 10/20/22 05:25: WBC 8.4, RBC 4.37, Hgb 12.2, Hct 37.6, MCV 86.0, MCH 27.9, MCHC 32.4, RDW Std Deviation 39.8, RDW Coeff of Jovani 12.7, Plt Count 264, MPV 11.5, Immature Gran % (Auto) 0.200, Neut % (Auto) 71.4 H, Lymph % (Auto) 11.4 L, [place] % (Auto) 9.0, Eos % (Auto) 7.3 H, Baso % (Auto) 0.7, Absolute Neuts (auto) 6.0, Absolute Lymphs (auto) 0.96, Nucleated RBC % 0 10/20/22 05:25: PT 13.0, INR 1.0 10/20/22 05:25: Sodium 140, Potassium 3.8, Chloride 109 H, Carbon Dioxide 24.0, Anion Gap 7, BUN 24 H, Creatinine 1.24 H, Estim Creat Clear Calc 39.14, Est GFR (MDRD) Af Amer 58 L, Est GFR (MDRD) Non-Af 48 L, BUN/Creatinine Ratio 19.4, Glucose 92, Calcium 8.7 Radiography Diagnostic Testing: Radiology Impression Brain MRI 10/19/22 11:30 IMPRESSION: 1. Subacute linear ischemic infarct in the lateral aspect of the right thalamus including the adjacent medial lemniscus of the right midbrain are new findings when compared to 09/24/2022. 2. Prior tiny subacute lacunar ischemic infarct in the right posterior periventricular white matter is not visible on today''s exam when compared to 09/24/2022. 3. Confluent chronic white matter ischemic changes in both cerebral hemispheres and multiple small old lacunar cystic infarcts in the white matter of both cerebral hemispheres are unchanged. N.B. : The above Results were Read Back by Emery Lynn MD to Shilpa Renteria RN, and understanding confirmed on 10/19/2022 14:13:21 (ET). Electronically Signed: Emery Lynn MD at 13:55 EDT , Transesophageal Echocardiogram 10/20/22 07:17 Interpretation Summary Normal LV size. Left ventricular systolic function is normal. Moderate concentric left ventricular hypertrophy. Bubble contrast study negative for right to left interatrial shunt. No thrombus is detected in the left atrial appendage. Ordering Physician: Roger Alves Referring Physician: Janet Bonilla Performed By: Ramona Crooks, TERRIE, RVT Meaningful Use Info Meaningful Use Diagnoses (Choose all that apply): Ischemic CVA CVA Therapy Assessed for PT,OT and/or ST?: Yes Ischemic Stroke Antithrombotic order at d/c?: Yes Dx of Atrial fib/flutter?: No Anticoagulant at discharge?: Yes Statins at discharge?: Yes Primary Dx Acute Ischemic CVA?: Yes Discharge Plan Admission Admit Date/Time: 10/18/22 21:05 Primary Reason for Your Visit: Right thalamus ischemic stroke Attending Provider: Roger Alves Primary Care Provider: Desean Bonilla Consulting Providers: Hakeem Bolton Instructions Additional Instructions / Restrictions: Advised to keep SBP 1 50-1 60 for 1 week and then decrease to 130 over next 2 to 4 weeks. Discharge Orders/Prescriptions Prescriptions: New atorvastatin 40 mg Tablet 80 mg PO QHS Qty: 0 0RF sennosides-docusate sodium [Stool Softener-Stimulant Laxat] 8.6-50 mg Tablet 2 tab PO BID PRN PRN (Reason: Constipation) Qty: 0 0RF Xarelto 2.5 mg tablet 2.5 mg PO BID 30 Days Qty: 60 2RF Continued aspirin 81 mg tablet,chewable 81 mg PO DAILY Label Comments: TAKE 1 TABLET BY MOUTH EVERY DAY multivitamin Capsule 1 cap PO DAILY polyethylene glycol 3350 17 gram powder in packet 17 g PO DAILY nicotine 21 mg/24 hr patch 24 hour 21 mg transdermal DAILY 30 Days Qty: 30 0RF Changed lisinopril 20 mg tablet 40 mg PO DAILY 30 Days Qty: 0 0RF Label Comments: TAKE 1 TABLET BY MOUTH EVERY DAY Rx Instructions: Suggested to keep systolic blood pressure 1 50-160 FOR 1 week and then decrease to 130 mg over the next 2 to 4 weeks Other Ambulatory Orders: 30 Day Event Recorder Preventi (Urgent) Timeframe: 1 Month Facility: [facility] - Location: Cardiovascular Services Ordered By: Dr. Roger Alves Referrals / Follow Up: Desean Bonilla MD [Primary Care Provider] - Disposition Disposition (needs filled in before D/C Order can be placed): Assisted Facility Charges/Coding Addendum Addendum: Please cancel the billing charge of the progress note of the same date. Visit Charges Inpatient E&M: 65054 Disch Hosp >30min
[2022-10-20] MEDS: KCl 20MEQ in D5NS 20 MEQ/1,000 ML IV.SOLN. 50 MEQ IV (13:32)
[2022-10-20] MEDS: Labetalol (Prefilled) 20 MG/4 ML IV (13:33)
--- NOTE | 2022-10-20 13:36 | PHA.DC.MR ---
Pharmacy Service has performed discharge medication reconciliation for this patient. The patient's discharge medication list was reviewed for discrepancies and discrepancies were resolved. Home Medications aspirin 81 mg chewable tablet 81 mg PO DAILY heart health 07/02/22 multivitamin 1 cap PO DAILY supplement 09/24/22 polyethylene glycol 3350 17 gram oral powder packet 17 g PO DAILY Check with primary doctor 10/18/22 atorvastatin 40 mg tablet 80 mg PO QHS #0 tabs 10/20/22 lisinopril 20 mg tablet 40 mg PO DAILY blood pressure 30 days #0 tabs 10/20/22 nicotine 21 mg/24 hr daily transdermal patch 21 mg transdermal DAILY Check with primary doctor 30 days #30 ea 10/20/22 rivaroxaban 2.5 mg tablet (Xarelto) 2.5 mg PO BID 30 days #60 tabs 10/20/22 sennosides 8.6 mg-docusate sodium 50 mg tablet (Stool Softener-Stimulant Laxative) 2 tab PO BID PRN PRN Constipation #0 tabs 10/20/22
--- NOTE | 2022-10-20 14:39 | CASEMGMT ---
Orders were sent to [facility] via [facility]. Patient will not be ready to go until 6p. ITALO called [facility] and arranged for patient to get picked up at 6p via wheelchair. ITALO notified RN, laboratory secretary, and [facility] via [facility]. ITALO completed a 7000 in [facility]. Plan: d/c to [facility] under skilled level of care on a convalescent stay. Phys[facility] transported via wheelchair. Elvia CORTES
[2022-10-20] MEDS: Aspirin 81 MG TAB.CHEW PO (14:58)
[2022-10-20] MEDS: Multivitamins,Therapeutic Tablet 1 TABLET PO (14:58)
[2022-10-20] MEDS: Clopidogrel Bisulfate 75 MG Tablet PO (14:58)
[2022-10-20] MEDS: Lisinopril 40 MG Tablet PO (15:05)
[2022-10-20] MEDS: Polyethylene Glycol 3350 17 GM PACKET PO (15:05)
== END 2022-10-20 19:56 | disposition skilled nursing facility (03) | DRG 45 ==
LOC: ED 21:05 → PCU 21:29
PROVIDERS: Admitting Provider Hospitalist; Emergency Provider Emergency Medicine; PCP Family Medicine; Visit Provider Internal Medicine
DX: I63.89 Other cerebral infarction (principal); I69.354 Hemiplegia and hemiparesis following cerebral infarction affecting left non-dominant side; F15.10 Other stimulant abuse, uncomplicated; F16.99 Hallucinogen use, unspecified with unspecified hallucinogen-induced disorder; F12.99 Cannabis use, unspecified with unspecified cannabis-induced disorder; F17.210 Nicotine dependence, cigarettes, uncomplicated; I10 Essential (primary) hypertension; I16.1 Hypertensive emergency; H54.8 Legal blindness, as defined in USA; R29.810 Facial weakness; R47.81 Slurred speech; R29.704 NIHSS score 4; R29.710 NIHSS score 10; Z91.148 Patient's other noncompliance with medication regimen for other reason; Z79.01 Long term (current) use of anticoagulants; Z79.82 Long term (current) use of aspirin; Z79.899 Other long term (current) drug therapy
CPT/HCPCS: 36415; 70450; 70496; 70498; 70551; 71045; 80048; 80053; 84484; 85025; 85610; 85730; 87426; 93005; 93312; 93320; 93325; 94762; 97162; 97166; 99285; 99406; J7040; Q9967; A4216

== ENCOUNTER 2023-01-13 23:27 | Emergency (ER) | payer MEDICAID, SELFPAY ==
[2023-01-13 23:28] VITALS: BP 234/110; PULSE 95; RESP 18; TEMP 36.6; O2SAT 98; BMI 28.5
--- NOTE | 2023-01-13 23:54 | ED.VIS.BACK ---
HPI History of Present Illness Chief Complaint: Lower Extremity Injury Informant: patient and spouse/S.O. Onset/Context/Timing Onset: Today and Hours Context: Sudden Onset Injury: direct trauma Timing: Continuous Quality: Throbbing Location: Left Leg Current Severity: Moderate Maximum Severity: Moderate Worsened by: improves with Nothing Relieved by: Nothing Narrative Narrative: 52-year-old female prior stroke with decreased sensation in her left arm and leg which is chronic. She uses a motorized wheelchair at home. Tonight she was riding her motorized wheelchair and hit her left ankle and foot against a door frame. Can appended there. This occurred about 2 and half hours ago. Did not fall to the wheelchair. No other injuries. Complaining of discomfort to the left ankle and foot. No prior history of or surgery to that area. Prior similar symptoms: No Recent Illness/Hospitalization: No PFSH PFS Medical History Alcohol abuse CVA (cerebral vascular accident) CVA (cerebral vascular accident) Depression Hepatitis B Hidradenitis suppurativa Hypertension Hypertensive emergency Hypertensive urgency Irregular heart beat Ischemic cerebrovascular accident (CVA) Left axillary hidradenitis Smoker Tobacco use Vision loss of left eye Vision loss of right eye Home Medications aspirin 81 mg chewable tablet 81 mg PO DAILY heart health 07/02/22 [History Last Taken Unknown] multivitamin 1 cap PO DAILY supplement 09/24/22 [History Last Taken Unknown] polyethylene glycol 3350 17 gram oral powder packet 17 g PO DAILY Check with primary doctor 10/18/22 [History Last Taken Unknown] atorvastatin 40 mg tablet 80 mg (2 x 40 mg) PO QHS #0 tabs 10/20/22 [Rx Last Taken Unknown] lisinopril 20 mg tablet 40 mg (2 x 20 mg) PO DAILY blood pressure 30 days #0 tabs 10/20/22 [Rx Last Taken 10/14/22] nicotine 21 mg/24 hr daily transdermal patch 21 mg transdermal DAILY Check with primary doctor 30 days #30 ea 10/20/22 [Rx Last Taken Unknown] rivaroxaban 2.5 mg tablet (Xarelto) 2.5 mg PO BID 30 days #60 tabs 10/20/22 [Rx Last Taken Unknown] sennosides 8.6 mg-docusate sodium 50 mg tablet (Stool Softener-Stimulant Laxative) 2 tab PO BID PRN PRN Constipation #0 tabs 10/20/22 [Rx Last Taken Unknown] Allergy/AdvReac Type Severity Reaction Status Date / Time Penicillins Allergy Hives Verified 09/24/22 08:50 Family History Mother CVA (cerebral vascular accident) CAD (coronary artery disease) Hypertension Heart disease Myocardial infarction Father CAD (coronary artery disease) Heart disease Hypertension Myocardial infarction Surgical History H/O umbilical hernia repair History of bilateral tubal ligation History of eye surgery Hx of cataract surgery S/P lens implant Status post glaucoma surgery Status post tonsillectomy and adenoidectomy Social History household members: none housing: apartment Smoking Status: Current every day smoker tobacco type: cigarettes how long ago did patient quit smoking: Patient reports 1/2 ppd cigarette tobacco use since teen. alcohol intake: never substance use type: does not use ROS ROS ED ROS Narrative Denies recent illness. Review of Systems ROS Unobtainable: Denies due to encephalopathy Constitutional Constitutional ED: Denies chills or fever(s) Eyes Eyes: Denies blurry vision ENT ENT ED: Denies ear pain Cardiovascular Cardiovascular: Denies chest pain Respiratory/Chest Respiratory/Chest: Denies dyspnea Gastrointestinal Gastrointestinal: Denies abdominal pain Genitourinary Genitourinary ED: Denies dysuria Musculoskeletal Musculoskeletal: Denies arthralgias Integumentary Denies abscess Neurologic Neurologic: Denies headache(s) Psychiatric Psychiatric: Denies anxiety Endocrine Endocrinology: Denies cold intolerance Hematologic/Lymphatic Hematologic/Lymphatic: Denies easy bleeding Allergic/Immunologic Allergic/Immunologic ED: Denies mouth swelling EXAM Physical Exam Narrative Exam Narrative: 32-year-old female no acute distress. Vital signs are stable initial blood pressure elevated 234 110. H EENT exam unremarkable atraumatic. Neck nontender. Lungs clear. Heart regular rhythm rate about 90 no murmur. Chest wall nontender. Abdomen soft nontender. Pelvic girdle intact. Nontender upper extremities. Bilateral signs sales representative strength slightly decreased on the left compared to the right. Left is 4 out of 5. She has had a prior stroke and has decreased sensation on left side. She has mild tenderness to the left lateral ankle and left lateral foot. No gross bony deformity. Mild swelling. DP pulse intact. She has a mild abrasion to her left knee but has normal flexion extension at the knee. Right lower extremity unremarkable. Neurologically she is awake and alert. She can move all 4 extremities. She is somewhat limited to the left side and has decreased sensation on the left side. This is all from her prior stroke. Const Vital Signs: 01/13/23 23:28 Temperature 97.9 F Temperature Source Temporal Pulse Rate 95 Respiratory Rate 18 Blood Pressure 234/110 H Blood Pressure Mean 151 Pulse Ox 98 Oxygen Delivery Method Room Air Positive well nourished and well developed; Negative for cachectic, contractures or unkempt General Appearance ED: well developed and NAD; Negative for unkempt, cachectic, contractures or pallor Nutritional Appearance: Negative for cachectic HEENT Reports moist mucous membranes; Denies dry mucous membranes Negative for trauma or tenderness Mouth ED: No dry mucous membranes Mouth: No dry mucous membranes Eyes PERRL and EOMs intact bilaterally Neck no lymphadenopathy, supple and no JVD General: Negative for tenderness Thyroid: Negative for other Chest Wall Chest: Negative for other Resp normal respiratory effort and clear to auscultation bilaterally Effort and Inspection: Negative for pain with movement Auscultation: Negative for rales, rhonchi or wheezes Cardio regular rate, regular rhythm, S1 normal heart sound, S2 normal heart sound and no murmurs Palpation: Negative for palpable S3 Rate: Negative for bradycardia Rhythm: Negative for abnormal rhythm GI normal to inspection, nondistended, normoactive bowel sounds, soft to palpation, non-tender, non-distended and no masses Palpation: Negative for tender or guarding Bladder / Kidney Exam: No other Back/Spine normal to inspection and no thoracic nor lumbar tenderness General Back: Negative for CVA tenderness Cervical Spine: Negative for cervical spine tenderness Thoracic Spine / Upper Back: Negative for paraspinal muscle tenderness Lumbar Spine / Lower Back: Negative for ROM limited Extremity Negative for normal to inspection Extremity Narrative: Mild tenderness left lateral ankle and left lateral foot. Mild swelling. No gross bony deformity. Skin intact. Minor abrasion left knee. Decreased sensation left upper and lower extremity from prior stroke. General Extremety ED: Yes tenderness Neuro oriented x3 and No no sensory deficits noted Sensorium / Orientation: alert; Negative for confused, lethargic or stuporous Motor Exam: strength abnormal Psych mental status grossly normal Appearance: Negative for unkempt Attitude: No agitated Mood & Affect: Negative for depressed, sad or tearful Skin no rashes or lesions noted and no wounds General Skin Exam: Negative for jaundice or pallor Lesions: No lesion noted Rashes: No rashes noted Trauma: abrasion MDM MDM MDM Narrative Medical decision making narrative: 52-year-old prior stroke injured her left ankle and foot while riding her electric wheelchair hit and pinned it on the door frame. X-rays being obtained. Stella for pain. Repeat exam she is doing well. Patient be discharged home. Left ankle and foot sprain and contusion. Patient requested a walking boot. History & Record Review Discussion w/independent historian: Patient and Family Radiography Diagnostic Testing: Clinical Impression(s) from Imaging Studies Ankle X-Ray 01/14/23 00:09 IMPRESSION: No acute osseous abnormality of the left ankle. Electronically Signed: Armen Frederick MD at 0:41 EDT , Foot X-Ray 01/14/23 00:09 IMPRESSION: No acute osseous abnormality of the left foot. Electronically Signed: Armen Frederick MD at 0:41 EDT , Left foot x-ray 3 views interpreted by myself and the radiologist shows no fracture or dislocation Left ankle x-ray 3 views interpreted by myself and the radiologist shows no acute fracture or dislocation. X-rays were discussed with the patient. Discharge Plan Triage Chief Complaint: Lower Extremity Injury ED Provider: Mihai Hubbard Dx/Rx/DC Orders Clinical Impression: History of embolic stroke, Contusion of foot, left, Left ankle sprain Instructions: ED Sprain Ankle W X Ray, ED Foot Contusion Prescriptions: No Action aspirin 81 mg tablet,chewable 81 mg PO DAILY Patient Comments: TAKE 1 TABLET BY MOUTH EVERY DAY multivitamin Capsule 1 cap PO DAILY polyethylene glycol 3350 17 gram powder in packet 17 g PO DAILY atorvastatin 40 mg Tablet 80 mg PO QHS Qty: 0 0RF sennosides-docusate sodium [Stool Softener-Stimulant Laxat] 8.6-50 mg Tablet 2 tab PO BID PRN PRN (Reason: Constipation) Qty: 0 0RF Xarelto 2.5 mg tablet 2.5 mg PO BID 30 Days Qty: 60 2RF lisinopril 20 mg tablet 40 mg PO DAILY 30 Days Qty: 0 0RF Patient Comments: TAKE 1 TABLET BY MOUTH EVERY DAY Rx Instructions: Suggested to keep systolic blood pressure 1 50-160 FOR 1 week and then decrease to 130 mg over the next 2 to 4 weeks nicotine 21 mg/24 hr patch 24 hour 21 mg transdermal DAILY 30 Days Qty: 30 0RF Primary Care Provider: Care Physician,No Primary Referrals: Care Physician,No Primary [Primary Care Provider] - Activity Restrictions/Additional Instructions: Ice to your foot and ankle. Motrin and Tylenol for pain. Follow-up if not improving. Disposition Disposition: Home, Self Care
--- NOTE | 2023-01-14 00:09 | RAD_ITS ---
INDICATION: trauma EXAMINATION/TECHNIQUE: X-RAY - LEFT XR Ankle Min 3 Views COMPARISON: None. FINDINGS: 3 views of the left ankle. BONES: Normal anatomic alignment without evidence of fracture or subluxation. No concerning bony lesion or abnormal sclerosis to suggest lesion. JOINTS: No significant degenerative change. SOFT TISSUES: Mild lateral malleolar soft tissue swelling. RAD/Ankle min 3 Views IMPRESSION: No acute osseous abnormality of the left ankle. Electronically Signed: Armen Frederick MD at 0:41 EDT ,
--- NOTE | 2023-01-14 00:09 | RAD_ITS ---
INDICATION: trauma EXAMINATION/TECHNIQUE: X-RAY - LEFT XR Foot Min 3 Views COMPARISON: None. FINDINGS: 3 views left foot. BONES: Normal anatomic alignment without evidence of fracture or subluxation. No concerning bony lesion or abnormal sclerosis to suggest lesion. JOINTS: No significant degenerative change. SOFT TISSUES: Unremarkable. RAD/Foot min 3 Views IMPRESSION: No acute osseous abnormality of the left foot. Electronically Signed: Armen Frederick MD at 0:41 EDT ,
[2023-01-14] MEDS: HYDROcodone Bitartrate/Apap 5/325 Tablet PO (00:24)
[2023-01-14 01:08] VITALS: RESP 18
== END 2023-01-14 01:09 | disposition home or self-care (01) ==
PROVIDERS: Emergency Provider Emergency Medicine; Visit Provider Emergency Medicine
DX: S90.32XA Contusion of left foot, initial encounter (principal); S93.402A Sprain of unspecified ligament of left ankle, initial encounter; F17.210 Nicotine dependence, cigarettes, uncomplicated; Z86.73 Personal history of transient ischemic attack (TIA), and cerebral infarction without residual deficits; X58.XXXA Exposure to other specified factors, initial encounter
CPT/HCPCS: 73610; 73630; 99283

== ENCOUNTER 2023-04-17 21:21 | Inpatient (IN) | payer MEDICAID, SELFPAY ==
[2023-04-17 21:22] VITALS: BP 234/100; PULSE 71; RESP 20; TEMP 36.4; O2SAT 94; BMI 25.8
--- NOTE | 2023-04-17 22:09 | RAD_ITS ---
STUDY: X-RAY - LEFT FEMUR REASON FOR STUDY: Female, 52 years old. pain/injury TECHNIQUE: 2 view(s) of the femur. COMPARISON: None. FINDINGS: There is diffuse demineralization of the femur. There is a left intertrochanteric fracture with near 90 degree angulation along the fracture line. Remainder of the femur is unremarkable. There is soft tissue swelling at the level of the left hip. RAD/Femur Min 2 Views IMPRESSION: Fracture involving the left femoral neck/intertrochanteric region with near 90 degrees angulation as described. No dislocation. Electronically Signed: Madeline Squires MD at 0:29 EDT ,
--- NOTE | 2023-04-17 22:18 | EDS_ITS ---
HPI HPI - Fall History of Present Illness Chief Complaint: Fall Informant: patient and EMS Narrative Narrative: Patient tripped and just prior to arrival injuring her left thigh mostly, she has had some pain in her left ankle. Unable to move her left leg due to the pain or put any weight on it. Prior to this she has hemiparesis due to a stroke, walks with a cane which is what she was doing inside she tripped over something. Patient states she has not think she hit her head, back, arms or anything else. She has no pain elsewhere. She does not have any prodromal symptoms or recent illness. Incidentally states when discussing her high blood pressure that she has had none of her medications for a long time and she Remember for how long. She states she does not have help at home. She states she has a boyfriend lives with her, sometimes he helps other times he is busy. He does not help her get to the doctor or get medications apparently. He is not here to discuss with. Patient states she is to be in [facility] lawn does not want placement back there. [facility] Medical History Alcohol abuse CVA (cerebral vascular accident) CVA (cerebral vascular accident) Depression Hepatitis B Hidradenitis suppurativa Hypertension Hypertensive emergency Hypertensive urgency Irregular heart beat Ischemic cerebrovascular accident (CVA) Left axillary hidradenitis Smoker Tobacco use Vision loss of left eye Vision loss of right eye Home Medications aspirin 81 mg chewable tablet 81 mg PO DAILY heart health 07/02/22 [History Last Taken Unknown] multivitamin 1 cap PO DAILY supplement 09/24/22 [History Last Taken Unknown] polyethylene glycol 3350 17 gram oral powder packet 17 g PO DAILY Check with primary doctor 10/18/22 [History Last Taken Unknown] atorvastatin 40 mg tablet 80 mg (2 x 40 mg) PO QHS #0 tabs 10/20/22 [Rx Last Taken Unknown] lisinopril 20 mg tablet 40 mg (2 x 20 mg) PO DAILY blood pressure 30 days #0 tabs 10/20/22 [Rx Last Taken 10/14/22] nicotine 21 mg/24 hr daily transdermal patch 21 mg transdermal DAILY Check with primary doctor 30 days #30 ea 10/20/22 [Rx Last Taken Unknown] rivaroxaban 2.5 mg tablet (Xarelto) 2.5 mg PO BID 30 days #60 tabs 10/20/22 [Rx Last Taken Unknown] sennosides 8.6 mg-docusate sodium 50 mg tablet (Stool Softener-Stimulant Laxative) 2 tab PO BID PRN PRN Constipation #0 tabs 10/20/22 [Rx Last Taken Unknown] Allergy/AdvReac Type Severity Reaction Status Date / Time Penicillins Allergy Hives Verified 04/17/23 21:26 Family History Mother CVA (cerebral vascular accident) CAD (coronary artery disease) Hypertension Heart disease Myocardial infarction Father CAD (coronary artery disease) Heart disease Hypertension Myocardial infarction Surgical History H/O umbilical hernia repair History of bilateral tubal ligation History of eye surgery Hx of cataract surgery S/P lens implant Status post glaucoma surgery Status post tonsillectomy and adenoidectomy Social History household members: none housing: apartment Smoking Status: Current every day smoker tobacco type: cigarettes how long ago did patient quit smoking: Patient reports 1/2 ppd cigarette tobacco use since teen. alcohol intake: never substance use type: does not use ROS ROS ED Constitutional Constitutional ED: Denies chills or fever(s) Eyes Eyes: Denies change in vision or diplopia ENT ENT ED: Denies ear pain, epistaxis, facial pain or rhinorrhea Cardiovascular Cardiovascular: Denies chest pain or palpitations Respiratory/Chest Respiratory/Chest: Denies cough or dyspnea Gastrointestinal Gastrointestinal: Denies abdominal pain, diarrhea, melena, nausea or vomiting Genitourinary Genitourinary ED: Denies dysuria or hematuria Musculoskeletal Musculoskeletal: Reports extremity pain; Denies back pain or neck pain Integumentary Denies abscess, Abrasions, laceration or rash Neurologic Neurologic: Reports paresthesias LUE and LLE and weakness; Denies confusion or headache(s) EXAM Physical Exam Const Vital Signs: 04/17/23 21:22 04/17/23 22:21 Temperature 97.6 F L Temperature Source Oral Pulse Rate 71 Respiratory Rate 20 H Respiratory Effort Normal Respiratory Depth Normal Respiratory Pattern Normal Blood Pressure 234/100 H Blood Pressure Mean 144 Pulse Ox 94 Oxygen Delivery Method Room Air Room Air Positive well nourished and well developed General Appearance ED: well developed and NAD HEENT Reports nasal mucous membranes and turbinates normal HEENT Narrative: No jerry sign no facial trauma no raccoon eyes. No CSF otorhinorrhea. atraumatic Face and Sinus: Negative for facial tenderness Eyes PERRL and EOMs intact bilaterally Visual Acuity: other Other Details: no entrapment or pain with extraocular movements Neck full ROM and supple General: Negative for tenderness Chest Wall inspection of chest normal and palpation of chest normal Chest: symmetrical chest wall rise; Negative for crepitus or tenderness Resp normal respiratory effort and clear to auscultation bilaterally Percussion: other equal BS bilat Cardio no murmurs Rate: regular rate Rhythm: regular rhythm GI normal to inspection, nondistended, normoactive bowel sounds, soft to palpation and non-tender Back/Spine normal ROM Cervical Spine: Negative for cervical spine tenderness Thoracic Spine / Upper Back: Negative for thoracic spinal tenderness Lumbar Spine / Lower Back: Negative for lumbar spinal tenderness Extremity normal to inspection Extremity Narrative: Tender throughout the distal half of the left thigh. All compartments are soft and nondistended, there is no deformities or any obvious signs of trauma/injury, she is holding her knee and thigh both in flexion with her foot on the bed, there is no tenderness in the ankle, limited range of motion throughout all joints of the left lower extremity due to pain in the thigh. She has full range of motion throughout all of the other 3 extremities without any apparent difficulty or pain. General Extremety ED: Yes tenderness Neuro oriented x3, CN's II-XII intact bilaterally and moves all extremities Neuro Narrative: Weak left side and mild left facial droop [place] Coma Scale: document GCS findings Spontaneous Obeys Commands Oriented 15 Sensorium / Orientation: awake and alert Psych mental status grossly normal and thought process normal Skin no wounds Lesions: no lesions Rashes: no rashes MDM MDM MDM Narrative Medical decision making narrative: Patient does not want to move the knee or the left hip, because of pain and she really is tender mostly at the distal half of the femur although it is normal- appearing clinically. Therefore obtain 1 view of the pelvis and 4 views of the left femur, combination of these basically show an angulated displaced intertrochanteric hip fracture. The rest of the femur is uninjured. Three-view left ankle series negative for anything acute there. Blood pressure really elevated I gave her a dose of the lisinopril she has not had an months, patient does not know how long it has been since she had any of her medications. Her white blood count is 23.4. I obtained a chest x-ray 1 view on my interpretation shows no pneumonia or anything else acute, and the urinalysis is negative. She does not have any symptoms of illness recently, she states she was feeling at baseline before this fall, she does not have symptoms of COVID and that does not typically cause a leukocytosis so I do not think we need to test her for that. Discussed with orthopedics Dr. Velez, agrees that we will likely need a day of medical clearance before surgery can occur. Lab Data Attestation: I reviewed the patient's lab results. Labs: Laboratory Results - last 24 hr 04/17/23 04/17/23 21:40 22:40 WBC 23.4 H RBC 4.96 Hgb 13.9 Hct 41.9 MCV 84.5 MCH 28.0 MCHC 33.2 RDW Std Deviation 37.9 RDW Coeff of Jovani 12.4 Plt Count 261 MPV 12.4 H Immature Gran % (Auto) 0.800 Neut % (Auto) 93.2 H Lymph % (Auto) 2.0 L [place] % (Auto) 3.8 Eos % (Auto) 0.0 Baso % (Auto) 0.2 Absolute Neuts (auto) 21.8 H Absolute Lymphs (auto) 0.47 L Nucleated RBC % 0 Differential Comment SCANNED Sodium 139 Potassium 3.2 L Chloride 106 Carbon Dioxide 25.0 Anion Gap 8 BUN 14 Creatinine 1.15 H Estim Creat Clear Calc 42.20 Est GFR (MDRD) Af Amer 63 Est GFR (MDRD) Non-Af 52 L BUN/Creatinine Ratio 12.2 Glucose 138 H Calcium 9.4 Urine Color Yellow Urine Clarity Clear Urine pH 8.0 Ur Specific [place] 1.010 Urine Protein 15 H Urine Glucose (UA) Normal Urine Ketones Negative Urine Occult Blood Negative Urine Nitrite Negative Urine Bilirubin Negative Urine Urobilinogen Normal Ur Leukocyte Esterase Negative Urine RBC 0 SEEN Urine WBC 0 SEEN Ur Squamous Epith Cells 0 SEEN Urine Bacteria 0 SEEN Urine Mucus 0 SEEN Radiography Diagnostic Testing: Clinical Impression(s) from Imaging Studies Femur X-Ray 04/17/23 22:09 IMPRESSION: Fracture involving the left femoral neck/intertrochanteric region with near 90 degrees angulation as described. No dislocation. Electronically Signed: Madeline Squires MD at 0:29 EDT , Ankle X-Ray 04/17/23 23:35 IMPRESSION: Diffuse osteopenia, otherwise no acute fracture or subluxation. Electronically Signed: Madeline Squires MD at 0:28 EDT , Chest X-Ray 04/18/23 00:20 IMPRESSION: No acute cardiopulmonary disease. Electronically Signed: Madeline Squires MD at 0:44 EDT , Rhythm Strip Rhythm Strip: Sinus Rhythm Rate: 65 Ectopy: None EKG Initial EKG: Attestation: I personally reviewed and interpreted this EKG as follows: Interpretation: Sinus Rhythm and No Acute Injury Pattern Comments: nml EKG Management Discussion w/another healthcare provider: Hospitalist and Airline Pilot Flight Instructor (brielle Velez) Discharge Plan Dx/Rx/DC Orders Clinical Impression: Hemiparesis affecting left side as late effect of stroke, Accelerated hypertension, Fall on same level from tripping as cause of accidental injury, Noncompliance with medications, Closed intertrochanteric fracture of left hip Disposition Disposition: Acute Care Hospital [facility]
[2023-04-17] MEDS: Morphine 4 MG/ML Syringe IV (23:05)
[2023-04-17] MEDS: Ondansetron 4 MG/2 ML Vial IV (23:06)
[2023-04-17] MEDS: Lisinopril 40 MG Tablet PO (23:06)
--- NOTE | 2023-04-17 23:35 | RAD_ITS ---
STUDY: X-RAY - LEFT ANKLE REASON FOR EXAM: Female, 52 years old. pain/injury TECHNIQUE: 3 view(s) of the ankle. COMPARISON: None. FINDINGS: Diffuse osteopenia, otherwise normal visualized distal tibia and fibula. Normal medial and lateral malleoli. Normal tibiotalar articulation and ankle mortise. Normal visualized talus and calcaneus. The visualized subtalar, talonavicular, calcaneocuboid and tarsal articulations are normal. There is no demonstrated fracture. Soft tissue swelling at the ankle. RAD/Ankle min 3 Views IMPRESSION: Diffuse osteopenia, otherwise no acute fracture or subluxation. Electronically Signed: Madeline Squires MD at 0:28 EDT ,
[2023-04-17 23:38] LABS: Absolute Lymphocyte Count 0.47 X10^3/uL (0.83-4.51); Absolute Neutrophil Count 21.8 X10^3/uL (2.0-7.7); Basophil# 0.05 X10^3/uL; Basophil% 0.2 % (0-1); Hematocrit 41.9 % (37-47); Hemoglobin 13.9 g/dL (12.0-15.0); Lymphocyte # 0.47 X10^3/ul (0.83-4.51); Mean Corp Hgb Conc 33.2 g/dL (32-36); Mean Corpuscular Volume 84.5 fL (81-99); Mean Platelet Vol. 12.4 fl (6.2-12.0); Monocyte% 3.8 % (0-10); NRBC Flagged by Analyzer 0 % (0-5); Neutrophil # 21.82 X10^3/uL (2.7-7.7); Neutrophil % 93.2 % (47-70); POSITIVE DIFFERENTIAL YES; Platelet Count 261 K/mm3 (150-450); RBC Distribution Width CV 12.4 % (11.6-14.6); RBC Distribution Width SD 37.9 fl (35.1-43.9); Red Blood Count 4.96 M/mm3 (4.2-5.4); White Blood Count 23.4 K/mm3 (4.4-11.0)
[2023-04-17 23:47] LABS: Differential Indicated SCAN CRITERIA MET
[2023-04-17 23:53] LABS: Anion Gap 8 (5-15); BUN 14 mg/dL (7-18); BUN/Creat Ratio 12.2 RATIO (10-20); Calcium,Total 9.4 mg/dL (8.5-10.1); Chloride 106 mmol/L (98-107); Creatinine, Serum 1.15 mg/dL (0.55-1.02); EST Glomerular Filtration Rate 52 mL/min (>60); Est Glom Filt Rate - Afr Amer 63 mL/min (>60); Glucose 138 mg/dL (74-106); Potassium 3.2 mmol/L (3.5-5.1); Sodium Level 139 mmol/L (136-145)
[2023-04-18] VITALS (10 sets, daily range): BP systolic 107–224; BP diastolic 60–105; PULSE 76–96; RESP 16; TEMP 36.5–36.9; O2SAT 94–96; BMI 22.1
[2023-04-18 00:19] LABS: Bacteria 0 SEEN /hpf (None Seen); Mucous, Urine 0 SEEN /hpf (<or=2+); Red Blood Cells-Urine 0 SEEN /hpf (0-5); Squamous Epithelial Cells - UA 0 SEEN /hpf (5-10); White Blood Cells 0 SEEN /hpf (0-5)
--- NOTE | 2023-04-18 00:20 | RAD_ITS ---
STUDY: X-RAY CHEST REASON FOR EXAM: Female, 52 years old. preop clearance TECHNIQUE: Single AP portable view of the chest. COMPARISON: 10/18/2022. FINDINGS: The lungs are clear and expanded. There is no demonstrated pleural abnormality. Normal size heart. Normal mediastinum and shima. Normal visualized pulmonary arteries. Normal visualized aortic arch and descending thoracic aorta. There are mild degenerative changes of the visualized thoracic spine. Normal visualized ribs, clavicles, and shoulders. There is no demonstrated abnormality of the visualized soft tissue structures of the upper abdomen. RAD/Chest 1 View (Portable) IMPRESSION: No acute cardiopulmonary disease. Electronically Signed: Madeline Squires MD at 0:44 EDT ,
[2023-04-18 00:21] LABS: Color, Urine Yellow (Yellow); Glucose, Dipstick Normal (Normal); Ketone-Dipstick Negative (Negative); Leukocyte Esterase-Dipstick Negative /ul (Negative); Nitrite-Dipstick Negative (Negative); Occult Blood-Urine Negative /ul (Negative); Protein-Dipstick 15 mg/dl (Negative); Urine Bilirubin Dipstick Negative (Negative); Urine Clarity Clear (Clear); Urine Urobilinogen Normal (Normal)
[2023-04-18 00:23] LABS: Differential Comment SCANNED
--- NOTE | 2023-04-18 01:19 | HP.PCM.HOS_ITS ---
HPI - General General Date of Admission: 04/18/23 Date of Service: 04/18/23 Chief Complaint: Fall HPI Narrative ZEKE RAY, is a 52 F with a significant history of left-sided hemiparesis secondary to stroke who presents to the emergency department with a fall that occurred on the same day of presentation.. At patient's home, patient was going to the bathroom when she fell. With the fall she developed excruciating pain in her left hip. Imaging at the emergency department showed that her left hip has fractured. Also at the emergency department patient was found to have excessively elevated blood pressure. Patient reports not following up with her doctor and not taking her medications for a while. Reportedly she is unable to take her medication because she has no help. Patient gets help only when her boyfriend comes around. Previously she was at [facility] but reportedly she does not want to go back there. PENDING SALE TO [facility] Medical History Alcohol abuse CVA (cerebral vascular accident) CVA (cerebral vascular accident) Depression Hepatitis B Hidradenitis suppurativa Hypertension Hypertensive emergency Hypertensive urgency Irregular heart beat Ischemic cerebrovascular accident (CVA) Left axillary hidradenitis Smoker Tobacco use Vision loss of left eye Vision loss of right eye Home Medications aspirin 81 mg chewable tablet 81 mg PO DAILY heart health 07/02/22 [History Last Taken Unknown] multivitamin 1 cap PO DAILY supplement 09/24/22 [History Last Taken Unknown] polyethylene glycol 3350 17 gram oral powder packet 17 g PO DAILY Check with primary doctor 10/18/22 [History Last Taken Unknown] atorvastatin 40 mg tablet 80 mg (2 x 40 mg) PO QHS CHOLESTEROL #0 tabs 10/20/22 [Rx Last Taken Unknown] lisinopril 20 mg tablet 40 mg (2 x 20 mg) PO DAILY blood pressure 30 days #0 tabs 10/20/22 [Rx Last Taken 10/14/22] nicotine 21 mg/24 hr daily transdermal patch 21 mg transdermal DAILY Check with primary doctor 30 days #30 ea 10/20/22 [Rx Last Taken Unknown] rivaroxaban 2.5 mg tablet (Xarelto) 2.5 mg PO BID BLOOD THINNER 30 days #60 tabs 10/20/22 [Rx Last Taken Unknown] sennosides 8.6 mg-docusate sodium 50 mg tablet (Stool Softener-Stimulant Laxative) 2 tab PO BID PRN PRN Constipation #0 tabs 10/20/22 [Rx Last Taken Unknown] Allergy/AdvReac Type Severity Reaction Status Date / Time Penicillins Allergy Hives Verified 04/17/23 21:26 Family History Mother CVA (cerebral vascular accident) CAD (coronary artery disease) Hypertension Heart disease Myocardial infarction Father CAD (coronary artery disease) Heart disease Hypertension Myocardial infarction Surgical History H/O umbilical hernia repair History of bilateral tubal ligation History of eye surgery Hx of cataract surgery S/P lens implant Status post glaucoma surgery Status post tonsillectomy and adenoidectomy Social History household members: none housing: apartment Smoking Status: Current every day smoker tobacco type: cigarettes how long ago did patient quit smoking: Patient reports 1/2 ppd cigarette tobacco use since teen. alcohol intake: never substance use type: does not use ROS ROS Narrative Pertinent positives and pertinent negatives as noted in HPI. All other systems were reviewed and are negative Vital Signs Vital Signs Vital Signs: 04/17/23 21:22 04/17/23 22:21 Temperature 97.6 F L Temperature Source Oral Pulse Rate 71 Respiratory Rate 20 H Respiratory Effort Normal Respiratory Depth Normal Respiratory Pattern Normal Blood Pressure 234/100 H Blood Pressure Mean 144 Pulse Ox 94 Oxygen Delivery Method Room Air Room Air Weight Weight: 62 kg Body Mass Index (BMI) 25.8 Physical Exam Narrative Physical exam: General: Well-nourished, well-developed. Head: Normocephalic, atraumatic, no tenderness Eyes: Vision is grossly intact. EOMI ENT, no trauma, poor dentition, no rhinorrhea Neck: Nontender, No thyromegaly. CVS: Regular rate and rhythm. S1-S2 present. No murmur, gallop or rub. Respiratory : clear to auscultation bilaterally, chest wall nontender Abdomen: Soft, nontender, nondistended, normal bowel sounds, no masses : Deferred Back: Nontender, no CVA tenderness. Extremities: Strength in left upper extremity 3 out of 5. Strength in right upper extremity 5 out of 5. Strength in right lower extremity 5 out of 5. Strength in left lower extremity was not tested secondary to fracture. Skin: Normal color, no trauma, abrasions Neuro: Alert, oriented, cranial nerves II through XII grossly intact. Psychiatry: Normal mood. Normal affect. Not depressed. Not anxious. Results Lab / Micro Data 04/17/23 22:40 04/17/23 22:40 Labs: Laboratory Results - last 24 hr 04/17/23 21:40: Urine Color Yellow, Urine Clarity Clear, Urine pH 8.0, Ur Specific [place] 1.010, Urine Protein 15 H, Urine Glucose (UA) Normal, Urine Ketones Negative, Urine Occult Blood Negative, Urine Nitrite Negative, Urine Bilirubin Negative, Urine Urobilinogen Normal, Ur Leukocyte Esterase Negative, Urine RBC 0 SEEN, Urine WBC 0 SEEN, Ur Squamous Epith Cells 0 SEEN, Urine Bacteria 0 SEEN, Urine Mucus 0 SEEN 04/17/23 22:40: WBC 23.4 H, RBC 4.96, Hgb 13.9, Hct 41.9, MCV 84.5, MCH 28.0, MCHC 33.2, RDW Std Deviation 37.9, RDW Coeff of Jovani 12.4, Plt Count 261, MPV 12.4 H, Immature Gran % (Auto) 0.800, Neut % (Auto) 93.2 H, Lymph % (Auto) 2.0 L , [place] % (Auto) 3.8, Eos % (Auto) 0.0, Baso % (Auto) 0.2, Absolute Neuts (auto) 21.8 H, Absolute Lymphs (auto) 0.47 L, Nucleated RBC % 0, Differential Comment SCANNED, Sodium 139, Potassium 3.2 L, Chloride 106, Carbon Dioxide 25.0, Anion Gap 8, BUN 14, Creatinine 1.15 H, Estim Creat Clear Calc 42.20, Est GFR (MDRD) Af Amer 63, Est GFR (MDRD) Non-Af 52 L, BUN/Creatinine Ratio 12.2, Glucose 138 H , Calcium 9.4 Rhythm Strip Rhythm Strip: Sinus Rhythm Rate: 65 Ectopy: None Radiology Impression Femur X-Ray 04/17/23 22:09 IMPRESSION: Fracture involving the left femoral neck/intertrochanteric region with near 90 degrees angulation as described. No dislocation. Electronically Signed: Madeline Squires MD at 0:29 EDT , Ankle X-Ray 04/17/23 23:35 IMPRESSION: Diffuse osteopenia, otherwise no acute fracture or subluxation. Electronically Signed: Madeline Squires MD at 0:28 EDT , Chest X-Ray 04/18/23 00:20 IMPRESSION: No acute cardiopulmonary disease. Electronically Signed: Madeline Squires MD at 0:44 EDT Reading Location ID and State: [email or web address] / [email or web address] , Service support , Assessment & Plan Assessment/Plan (1) Closed intertrochanteric fracture of left hip: QUALIFIERS: Encounter type: initial encounter Fracture alignment: displaced Qualified Code(s): S72.142A - Displaced intertrochanteric fracture of left femur, initial encounter for closed fracture PLAN: Plan L femoral neck intertrochanteric fracture with angulation Radiology impression of femur x-ray: Fracture involving the left femoral neck/intertrochanteric region with near 90 degrees angulation as described. Femur x-ray was independently interpreted. Agrees with radiology interpretation. Chest x-ray with no fractures. Complaint of pain in left ankle. However left ankle with no fractures on x-ray but with osteopenia. Emergent department doctor discussed the case with Dr. Velez who stated that because of patient elevated blood pressure the earliest day that patient can have surgery would be 04/19/2023. Inpatient consult for orthopedic surgery. Morphine IV and oxycodone as needed ordered. Tylenol as needed ordered. Bowel protocol and antiemetics IV ordered. Keep n.p.o. Check vitamin D level. Preoperative EKG unremarkable Hypertensive urgency On arrival to emergency department blood pressure was 234/100. Blood pressure remained significantly elevated up while in the emergency department. Patient's home lisinopril was resumed from the ED. As needed hydralazine ordered. In 24 hours of both against blood pressure with systolic reduction up to 185 mmHg. Appear hydralazine ordered. Code: Patient is a DNR CCA is no intubation. Explained to patient that with surgery DNR_CCA will be revoked aT surgery time; and she will be resuscitated if indicated. DVT Prophylaxis: SCD and subcutaneous Lovenox ordered. Time spent in the patient's overall evaluation,decision-making process, review of diagnostic data, adjustment of management, discussion with other providers, nursing and ancillary staff involved in patient's care documentation, 70 minutes. Charges/Coding Visit Charges Inpatient E&M: 33219 Init Hosp L3
[2023-04-18] MEDS: Morphine 4 MG/ML Syringe IV ×6 (01:32→23:38)
[2023-04-18] MEDS: hydrALAZINE 20 MG/ML Vial 5 MG IV ×2 (02:44→12:31)
[2023-04-18 04:13] LABS: Absolute Lymphocyte Count 0.97 X10^3/uL (0.83-4.51); Absolute Neutrophil Count 19.4 X10^3/uL (2.0-7.7); Basophil# 0.04 X10^3/uL; Basophil% 0.2 % (0-1); Eosinophil# 0.02 X10^3/uL; Eosinophils% 0.1 % (0-5); Hematocrit 42.7 % (37-47); Hemoglobin 14.1 g/dL (12.0-15.0); Lymphocyte # 0.97 X10^3/ul (0.83-4.51); Lymphocyte % 4.5 % (19-41); Mean Corpuscular Hgb 28.6 pg (27.0-32.0); Mean Corpuscular Volume 86.6 fL (81-99); Mean Platelet Vol. 11.9 fl (6.2-12.0); Monocyte% 4.6 % (0-10); NRBC Flagged by Analyzer 0 % (0-5); Neutrophil # 19.39 X10^3/uL (2.7-7.7); Neutrophil % 90.1 % (47-70); Platelet Count 247 K/mm3 (150-450); RBC Distribution Width CV 12.7 % (11.6-14.6); Red Blood Count 4.93 M/mm3 (4.2-5.4); White Blood Count 21.5 K/mm3 (4.4-11.0)
[2023-04-18 04:25] LABS: ALB/GLOB Ratio 0.9 RATIO (0.9-2.4); AST(SGOT) 11 U/L (15-37); Alanine Aminotransfer ALT/SGPT 25 U/L (13-56); Albumin, Serum 3.7 g/dL (3.2-5.0); Alkaline Phosphatase 50 U/L (45-117); Anion Gap 5 (5-15); BUN 14 mg/dL (7-18); BUN/Creat Ratio 11.4 RATIO (10-20); Calcium,Total 9.3 mg/dL (8.5-10.1); Chloride 107 mmol/L (98-107); Creatinine, Serum 1.23 mg/dL (0.55-1.02); EST Glomerular Filtration Rate 48 mL/min (>60); Est Glom Filt Rate - Afr Amer 58 mL/min (>60); Estimated Creatinine Clearance 45.15 ml/min; Globulin 4.3 g/dL (2.2-4.2); Glucose 133 mg/dL (74-106); Potassium 3.2 mmol/L (3.5-5.1); Sodium Level 136 mmol/L (136-145)
--- NOTE | 2023-04-18 08:34 | PN.HOSP_ITS ---
Reason for Visit Reason for Visit: Diagnoses Displaced intertrochanteric fracture of left femur, initial encounter for closed fracture (04/18/23) Subjective Subjective Complaining of hip pain. States she ran out medications as to why she was not t aking them. Objective Data Objective Data Vital Signs: Vital Signs Temp Pulse Resp BP Pulse Ox O2 Del Method 36.4 C L 76 16 214/105 H 95 Room Air 04/17/23 21:22 04/18/23 02:44 04/18/23 01:53 04/18/23 02:44 04/18/23 01:53 04/17/23 22:21 Oxygen Delivery Method Room Air Weight: 58.5 kg Body Mass Index (BMI) 22.1 Intake & Output: Intake and Output for Last 24 Hours 04/16/23 04/17/23 04/18/23 23:59 23:59 23:59 Output Total 300 / 300 Balance -300 / -300 Lab / Micro Data 04/18/23 03:47 04/18/23 03:47 Labs: Laboratory Results - last 24 hr 04/17/23 21:40: Urine Color Yellow, Urine Clarity Clear, Urine pH 8.0, Ur Specific [place] 1.010, Urine Protein 15 H, Urine Glucose (UA) Normal, Urine Ketones Negative, Urine Occult Blood Negative, Urine Nitrite Negative, Urine Bilirubin Negative, Urine Urobilinogen Normal, Ur Leukocyte Esterase Negative, Urine RBC 0 SEEN, Urine WBC 0 SEEN, Ur Squamous Epith Cells 0 SEEN, Urine Bacteria 0 SEEN, Urine Mucus 0 SEEN 04/17/23 22:40: WBC 23.4 H, RBC 4.96, Hgb 13.9, Hct 41.9, MCV 84.5, MCH 28.0, MCHC 33.2, RDW Std Deviation 37.9, RDW Coeff of Jovani 12.4, Plt Count 261, MPV 12.4 H, Immature Gran % (Auto) 0.800, Neut % (Auto) 93.2 H, Lymph % (Auto) 2.0 L , [place] % (Auto) 3.8, Eos % (Auto) 0.0, Baso % (Auto) 0.2, Absolute Neuts (auto) 21.8 H, Absolute Lymphs (auto) 0.47 L, Nucleated RBC % 0, Differential Comment SCANNED, Sodium 139, Potassium 3.2 L, Chloride 106, Carbon Dioxide 25.0, Anion Gap 8, BUN 14, Creatinine 1.15 H, Estim Creat Clear Calc 42.20, Est GFR (MDRD) Af Amer 63, Est GFR (MDRD) Non-Af 52 L, BUN/Creatinine Ratio 12.2, Glucose 138 H , Calcium 9.4 04/18/23 03:47: WBC 21.5 H, RBC 4.93, Hgb 14.1, Hct 42.7, MCV 86.6, MCH 28.6, MCHC 33.0, RDW Std Deviation 40.0, RDW Coeff of Jovani 12.7, Plt Count 247, MPV 11.9, Immature Gran % (Auto) 0.500, Neut % (Auto) 90.1 H, Lymph % (Auto) 4.5 L, [place] % (Auto) 4.6, Eos % (Auto) 0.1, Baso % (Auto) 0.2, Absolute Neuts (auto) 19.4 H, Absolute Lymphs (auto) 0.97, Nucleated RBC % 0, Sodium 136, Potassium 3.2 L, Chloride 107, Carbon Dioxide 24.0, Anion Gap 5, BUN 14, Creatinine 1.23 H , Estim Creat Clear Calc 45.15, Est GFR (MDRD) Af Amer 58 L, Est GFR (MDRD) Non- Af 48 L, BUN/Creatinine Ratio 11.4, Glucose 133 H, Calcium 9.3, Total Bilirubin 0.50, AST 11 L, ALT 25, Alkaline Phosphatase 50, Total Protein 8.0, Albumin 3.7, Globulin 4.3 H, Albumin/Globulin Ratio 0.9 Radiography Diagnostic Testing: Radiology Impression Femur X-Ray 04/17/23 22:09 IMPRESSION: Fracture involving the left femoral neck/intertrochanteric region with near 90 degrees angulation as described. No dislocation. Electronically Signed: Madeline Squires MD at 0:29 EDT , Ankle X-Ray 04/17/23 23:35 IMPRESSION: Diffuse osteopenia, otherwise no acute fracture or subluxation. Electronically Signed: Madeline Squires MD at 0:28 EDT , Chest X-Ray 04/18/23 00:20 IMPRESSION: No acute cardiopulmonary disease. Electronically Signed: Madeline Squires MD at 0:44 EDT , Rhythm Strip Rhythm Strip: Sinus Rhythm Rate: 65 Ectopy: None Physical Exam Const alert and no apparent distress Constitutional Narrative: appears older than stated age. HEENT head/scalp atraumatic and moist oral mucous membranes Neuro Sensorium / Orientation: awake and alert Psych affect normal Assessment & Plan Assessment/Plan (1) Closed intertrochanteric fracture of left hip: QUALIFIERS: Encounter type: initial encounter Fracture alignment: displaced Qualified Code(s): S72.142A - Displaced intertrochanteric fracture of left femur, initial encounter for closed fracture PLAN: L femoral neck intertrochanteric fracture with angulation Emergent department doctor discussed the case with Dr. Velez who stated that because of patient elevated blood pressure the earliest day that patient can have surgery would be 04/19/2023. Inpatient consult for orthopedic surgery. Pain control Check vitamin D level. (2) Accelerated hypertension: PLAN: Ongoing Not taking ANY medications as outpt which includes liinopril 40/d She received a 1x dose of lisinopril on 04/17 at 2200. Continue 40/d of lisinopril. Add amlodipine. Continue PRN hydralazine. PLAN: Plan H/o CVA: Pt to be ASA and low-dose apixaban. Resume post operatively. Continue statin. Code: Patient is a DNR CCA is no intubation. Explained to patient that with surgery DNR_CCA will be revoked aT surgery time; and she will be resuscitated if indicated. DVT Prophylaxis: SCD and subcutaneous Lovenox ordered. Charges/Coding Visit Charges Inpatient E&M: 72684 Subs Hosp L2
--- NOTE | 2023-04-18 08:56 | CON.PCM_ITS ---
Assessment & Plan Assessment/Plan (1) Hemiparesis affecting left side as late effect of stroke: (2) Left leg weakness: (3) Closed intertrochanteric fracture of left hip: QUALIFIERS: Encounter type: initial encounter Fracture alignment: displaced Qualified Code(s): S72.142A - Displaced intertrochanteric fracture of left femur, initial encounter for closed fracture PLAN: Plan Basicervical left femoral neck fracture History of left-sided hemiparesis Significantly elevated blood pressures due to noncompliance on admission Plan for left hip trochanteric femoral nail 04/19/2023 if medically cleared Antibiotic on-call to the OR Consent signed HPI Consult Data Date of Consult: 04/18/23 HPI Narrative HPI Narrative: ZEKE RAY, is a 52 F with history of left-sided hemiparesis after CVA who ambulates with a cane who presents after ground-level fall left hip sustaining an intertrochanteric left hip fracture. [facility] Medical History Alcohol abuse CVA (cerebral vascular accident) CVA (cerebral vascular accident) Depression Hepatitis B Hidradenitis suppurativa Hypertension Hypertensive emergency Hypertensive urgency Irregular heart beat Ischemic cerebrovascular accident (CVA) Left axillary hidradenitis Smoker Tobacco use Vision loss of left eye Vision loss of right eye Home Medications aspirin 81 mg chewable tablet 81 mg PO DAILY heart health 07/02/22 [History Last Taken Unknown] multivitamin 1 cap PO DAILY supplement 09/24/22 [History Last Taken Unknown] polyethylene glycol 3350 17 gram oral powder packet 17 g PO DAILY Check with primary doctor 10/18/22 [History Last Taken Unknown] atorvastatin 40 mg tablet 80 mg (2 x 40 mg) PO QHS CHOLESTEROL #0 tabs 10/20/22 [Rx Last Taken Unknown] lisinopril 20 mg tablet 40 mg (2 x 20 mg) PO DAILY blood pressure 30 days #0 tabs 10/20/22 [Rx Last Taken 10/14/22] nicotine 21 mg/24 hr daily transdermal patch 21 mg transdermal DAILY Check with primary doctor 30 days #30 ea 10/20/22 [Rx Last Taken Unknown] rivaroxaban 2.5 mg tablet (Xarelto) 2.5 mg PO BID BLOOD THINNER 30 days #60 tabs 10/20/22 [Rx Last Taken Unknown] sennosides 8.6 mg-docusate sodium 50 mg tablet (Stool Softener-Stimulant Laxative) 2 tab PO BID PRN PRN Constipation #0 tabs 10/20/22 [Rx Last Taken Unknown] Allergy/AdvReac Type Severity Reaction Status Date / Time Penicillins Allergy Hives Verified 04/17/23 21:26 Family History Mother CVA (cerebral vascular accident) CAD (coronary artery disease) Hypertension Heart disease Myocardial infarction Father CAD (coronary artery disease) Heart disease Hypertension Myocardial infarction Surgical History H/O umbilical hernia repair History of bilateral tubal ligation History of eye surgery Hx of cataract surgery S/P lens implant Status post glaucoma surgery Status post tonsillectomy and adenoidectomy Social History household members: none housing: apartment Smoking Status: Current every day smoker tobacco type: cigarettes how long ago did patient quit smoking: Patient reports 1/2 ppd cigarette tobacco use since teen. alcohol intake: never substance use type: does not use Physical Exam Const no apparent distress; Negative for alert or oriented x3 General Appearance: comfortable Orientation / Consciousness: awake Extremity Extremity Narrative: Left hip flexed and externally rotated, logroll patient mumbles and is very difficult to understand compartment soft palpable pedal pulse, neurological exam limited secondary to pain and hemiparesis left side, no open wounds or ecchymosis left hip Lab / Micro Data 04/18/23 03:47 04/18/23 03:47 Labs: Laboratory Results - last 24 hr 04/17/23 21:40: Urine Color Yellow, Urine Clarity Clear, Urine pH 8.0, Ur Specific [place] 1.010, Urine Protein 15 H, Urine Glucose (UA) Normal, Urine Ketones Negative, Urine Occult Blood Negative, Urine Nitrite Negative, Urine Bilirubin Negative, Urine Urobilinogen Normal, Ur Leukocyte Esterase Negative, Urine RBC 0 SEEN, Urine WBC 0 SEEN, Ur Squamous Epith Cells 0 SEEN, Urine Bacteria 0 SEEN, Urine Mucus 0 SEEN 04/17/23 22:40: WBC 23.4 H, RBC 4.96, Hgb 13.9, Hct 41.9, MCV 84.5, MCH 28.0, MCHC 33.2, RDW Std Deviation 37.9, RDW Coeff of Jovani 12.4, Plt Count 261, MPV 12.4 H, Immature Gran % (Auto) 0.800, Neut % (Auto) 93.2 H, Lymph % (Auto) 2.0 L , [place] % (Auto) 3.8, Eos % (Auto) 0.0, Baso % (Auto) 0.2, Absolute Neuts (auto) 21.8 H, Absolute Lymphs (auto) 0.47 L, Nucleated RBC % 0, Differential Comment SCANNED, Sodium 139, Potassium 3.2 L, Chloride 106, Carbon Dioxide 25.0, Anion Gap 8, BUN 14, Creatinine 1.15 H, Estim Creat Clear Calc 42.20, Est GFR (MDRD) Af Amer 63, Est GFR (MDRD) Non-Af 52 L, BUN/Creatinine Ratio 12.2, Glucose 138 H , Calcium 9.4 04/18/23 03:47: WBC 21.5 H, RBC 4.93, Hgb 14.1, Hct 42.7, MCV 86.6, MCH 28.6, MCHC 33.0, RDW Std Deviation 40.0, RDW Coeff of Jovani 12.7, Plt Count 247, MPV 11.9, Immature Gran % (Auto) 0.500, Neut % (Auto) 90.1 H, Lymph % (Auto) 4.5 L, [place] % (Auto) 4.6, Eos % (Auto) 0.1, Baso % (Auto) 0.2, Absolute Neuts (auto) 19.4 H, Absolute Lymphs (auto) 0.97, Nucleated RBC % 0, Sodium 136, Potassium 3.2 L, Chloride 107, Carbon Dioxide 24.0, Anion Gap 5, BUN 14, Creatinine 1.23 H , Estim Creat Clear Calc 45.15, Est GFR (MDRD) Af Amer 58 L, Est GFR (MDRD) Non- Af 48 L, BUN/Creatinine Ratio 11.4, Glucose 133 H, Calcium 9.3, Total Bilirubin 0.50, AST 11 L, ALT 25, Alkaline Phosphatase 50, Total Protein 8.0, Albumin 3.7, Globulin 4.3 H, Albumin/Globulin Ratio 0.9 Rhythm Strip Rhythm Strip: Sinus Rhythm Rate: 65 Ectopy: None Radiology Impression Femur X-Ray 04/17/23 22:09 IMPRESSION: Fracture involving the left femoral neck/intertrochanteric region with near 90 degrees angulation as described. No dislocation. Electronically Signed: Madeline Squires MD at 0:29 EDT Reading Location ID and State: [employer] / [employer] , Service support , Ankle X-Ray 04/17/23 23:35 IMPRESSION: Diffuse osteopenia, otherwise no acute fracture or subluxation. Electronically Signed: Madeline Squires MD at 0:28 EDT Reading Location ID and State: [employer] / [employer] , Service support , Chest X-Ray 04/18/23 00:20 IMPRESSION: No acute cardiopulmonary disease. Electronically Signed: Madeline Squires MD at 0:44 EDT Reading Location ID and State: [employer] / [employer] , Service support ,
[2023-04-18] MEDS: Senna/Docusate Sodium 1 Tablet 2 TABLET PO (10:12)
[2023-04-18] MEDS: amLODIPine 5 MG Tablet PO (10:12)
[2023-04-18] MEDS: Enoxaparin 40 MG/0.4 ML Syringe SC (10:12)
[2023-04-18] MEDS: oxyCODONE 5 MG Tablet PO (14:11)
[2023-04-18] MEDS: Acetaminophen 325 MG Tablet 650 MG PO (14:11)
[2023-04-18] MEDS: oxyCODONE 5 MG Tablet 10 MG PO (22:44)
[2023-04-18] MEDS: Ketorolac 15 MG/ML Vial IV (22:44)
[2023-04-18] MEDS: 0.9% Saline Lock 10 ML Syringe IV ×2 (22:45→23:38)
[2023-04-18] MEDS: Lisinopril 40 MG Tablet PO (22:45)
[2023-04-18] MEDS: Acetaminophen 500 MG Tablet 1000 MG PO (22:45)
[2023-04-19] VITALS (11 sets, daily range): BP systolic 114–169; BP diastolic 66–101; PULSE 65–93; RESP 16–18; TEMP 36.1–37.5; O2SAT 92–97
[2023-04-19] MEDS: 0.9% Saline Lock 10 ML Syringe IV ×2 (00:30→09:46)
[2023-04-19] MEDS: DiphenhydrAMINE 50 MG/ML Syringe 25 MG IV (00:30)
[2023-04-19] MEDS: oxyCODONE 5 MG Tablet 10 MG PO ×3 (05:36→23:55)
[2023-04-19] MEDS: Acetaminophen 500 MG Tablet 1000 MG PO ×2 (05:37→21:12)
[2023-04-19 07:03] LABS: Anion Gap 8 (5-15); BUN 33 mg/dL (7-18); BUN/Creat Ratio 13.4 RATIO (10-20); Calcium,Total 9.4 mg/dL (8.5-10.1); Chloride 106 mmol/L (98-107); Creatinine, Serum 2.46 mg/dL (0.55-1.02); EST Glomerular Filtration Rate 22 mL/min (>60); Est Glom Filt Rate - Afr Amer 26 mL/min (>60); Estimated Creatinine Clearance 22.58 ml/min; Glucose 108 mg/dL (74-106); Potassium 3.2 mmol/L (3.5-5.1); Sodium Level 136 mmol/L (136-145)
--- NOTE | 2023-04-19 08:22 | PN.HOSP_ITS ---
Reason for Visit Reason for Visit: Diagnoses Essential (primary) hypertension (04/18/23) Hemiplegia and hemiparesis following cerebral infarction affecting left non- dominant side (04/18/23) Other symptoms and signs involving the musculoskeletal system (04/18/23) Displaced intertrochanteric fracture of left femur, initial encounter for closed fracture (04/18/23) Subjective Subjective Still with left hip pain. Objective Data Objective Data Vital Signs: Vital Signs Temp Pulse Resp BP Pulse Ox O2 Del Method 36.1 C L 93 18 139/93 H 97 Room Air 04/19/23 05:46 04/19/23 05:46 04/19/23 05:46 04/19/23 05:46 04/19/23 05:46 04/19/23 05:46 Oxygen Delivery Method Room Air Weight: 58.5 kg Body Mass Index (BMI) 22.1 Intake & Output: Intake and Output for Last 24 Hours 04/17/23 04/18/23 04/19/23 23:59 23:59 23:59 Intake Total 880 / 880 Output Total 750 / 750 400 / 400 Balance 130 / 130 -400 / -400 Lab / Micro Data 04/18/23 03:47 04/19/23 05:41 Labs: Laboratory Results - last 24 hr 04/18/23 09:30: Blood Type O POSITIVE, Antibody Screen NEGATIVE 04/19/23 05:41: Sodium 136, Potassium 3.2 L, Chloride 106, Carbon Dioxide 22.0, Anion Gap 8, BUN 33 H, Creatinine 2.46 H, Estim Creat Clear Calc 22.58, Est GFR (MDRD) Af Amer 26 L, Est GFR (MDRD) Non-Af 22 L, BUN/Creatinine Ratio 13.4, Glucose 108 H, Calcium 9.4 Rhythm Strip Rhythm Strip: Sinus Rhythm Rate: 65 Ectopy: None Physical Exam Const alert and no apparent distress Constitutional Narrative: no wearing gown. breast exposed upon arrival. placed blanket over. Extremity normal to inspection Assessment & Plan Assessment/Plan (1) Closed intertrochanteric fracture of left hip: QUALIFIERS: Encounter type: initial encounter Fracture alignment: displaced Qualified Code(s): S72.142A - Displaced intertrochanteric fracture of left femur, initial encounter for closed fracture PLAN: L femoral neck intertrochanteric fracture with angulation Emergent department doctor discussed the case with Dr. Velez who stated that because of patient elevated blood pressure the earliest day that patient can have surgery would be 04/19/2023. Inpatient consult for orthopedic surgery. Pain control Check vitamin D level. (2) Accelerated hypertension: PLAN: Improved Not taking ANY medications as outpt which includes liinopril 40/d She received a 1x dose of lisinopril on 04/17 at 2200. Add amlodipine. Continue PRN hydralazine. Hold lisinopril given ANAND (3) ANAND (acute kidney injury): PLAN: Creatinine jump up from 1.23 to 2.46 Did receive ketorolac on 04/18. Hold lisinopril IVF Monitor (4) Hypokalemia: PLAN: Replace Check magnesium PLAN: Plan H/o CVA: Pt to be ASA and low-dose apixaban. Resume post operatively. Continue statin. Code: Patient is a DNR CCA is no intubation. Explained to patient that with surgery DNR_CCA will be revoked aT surgery time; and she will be resuscitated if indicated. DVT Prophylaxis: SCD and subcutaneous Lovenox ordered. Charges/Coding Visit Charges Inpatient E&M: 69420 Subs Hosp L2
[2023-04-19] MEDS: 0.9% Normal Saline (1000mL) 1,000 ML 125 ML IV ×2 (09:45→19:47)
[2023-04-19] MEDS: Potassium Chloride 10mEq/100mL 10 MEQ/100 ML IV.SOLN. 100 MEQ IV BOLUS ×4 (09:46→14:25)
[2023-04-19] MEDS: Morphine 4 MG/ML Syringe IV (09:52)
[2023-04-19] MEDS: amLODIPine 5 MG Tablet PO (10:13)
[2023-04-19 10:34] LABS: Vitamin D,25 Hydroxy 28.8 ng/mL
--- NOTE | 2023-04-19 11:05 | CASEMGMT ---
RN ALONDRA Face to Face with patient for initial transition planning/care coordination assessment. RN CM introduced self and role at [facility]. Patient lying in bed, alert and oriented. Patient willing to participate in assessment and is able to answer all questions appropriately. Care providers, pharmacy, and demographics verified. Patient wishes to discharge home, denies need for home health at this time. Patient states he has no further needs or concerns at this time. CM to follow for discharge planning needs that may arise. PCP: No PCP, ALONDRA to provide list Specialists: none Preferred Pharmacy: [facility] Insurance: SeeOn Prescription Benefit: yes Living Will/HPOA: none LNOK: daughter Living Arrangements: Patient lives with boyfriend in a first floor apartment with no steps to enter. Patient states she was independent at home. Transportation: daughter DME/HHC: Patient has walker and wheelchair at home. Patient has been to [facility] in the past. Disposition Plan: TBD, HHC vs SNF pending surgery, course of treatment, and progress with therapy. Miladys CODY, RN, CM
[2023-04-19] MEDS: Cefazolin 2 GM in 0.9% Normal Saline (100mL Bag) 100 ML IV (13:30)
--- NOTE | 2023-04-19 14:00 | RAD_ITS ---
STUDY: X-RAY - PELVIS AND LEFT HIP REASON FOR EXAM: Female, 52 years old. Intraoperative digital documentation views of ORIF of left proximal femur. TECHNIQUE: 6 intraoperative digital views of the pelvis and hip. COMPARISON: April 17, 2023 FINDINGS: 6 intraoperative digital documentation views show intramedullary kelsie with interlocking dynamic hip screw in anatomic alignment. RAD/Hip Min 2 Views (Portable) IMPRESSION: Intraoperative digital documentation views. Electronically Signed: Adriel Harris MD at 15:08 EDT ,
[2023-04-19] MEDS: Bupivacaine 0.25% 30 ML Vial (14:53)
--- NOTE | 2023-04-19 15:00 | OP.PCM_ITS ---
Operative Report Date of Procedure: 04/19/23 Preoperative diagnosis: Left hip basicervical femoral neck fracture Postoperative diagnosis: Same Procedure: Cephalo-medullary fixation left hip Implants: Synthes short nail 130 deg 11 mm diameter 95 mm helical blade 34 mm screw Anesthesia: General EBL: 75 Complications: None Condition: Stable to PACU Indication for procedure: 52-year-old female patient with ground-level fall sustaining injury to hip. Fracture demonstrated Basicervical femoral neck fracture risk benefits and alternatives were reviewed including risk of bleeding infection nerve, artery, bone, tissue damage, blood clot need for further surgery and continued pain. Procedure: Patient met in the preoperative holding area once again the operative extremity was identified by both patient and physician and was marked. Patient was met by anesthesia and IV was started . patient was brought back to the to the operating room anesthesia was started. Patient was then positioned on the fracture table all bony prominences were well-padded. patient was then positioned with abduction internal rotation and traction and fluoroscopy was brought in to ensure that an adequate reduction could be performed. Patient was then prepped and draped in usual sterile fashion and timeout was called to ensure the proper patient procedure and extremity were being contemplated. Fluoroscopy was used to alana the tip of the greater trochanter and a 3 fingerbreadth incision was made 2 finger breaths proximal to the tip of the gr eater trochanter. Was carried carried down through the skin and subcutaneous tissue as well as the gluteal fascia. Guidepin was then inserted through the tip of the greater trochanter directed towards the level of lesser trochanter this was checked in both AP and lateral projections. An opening reamer was performed. Following this was the insertion of the nail the appropriate height jig was used and a triple trocar sleeve was advanced to the skin and a stab incision was made at the trocar was inserted to the level of the bone and a guidepin was placed into the femoral neck and head checked on both AP and lateral projections. This was then measured and appropriately sized helical blade was inserted the nail was locked proximally the fracture was compressed and a locking screw was placed distally the same incision was extended slightly distally to allow the insertion of the trocar for the transverse screw. This was then drilled and measured under fluoroscopy and the appropriate size screw was inserted. Final AP and lateral projections were saved to the PACS system of the entire construct the wounds were thoroughly irrigated the fascia was closed with #1 [id number] Vicryls followed by 2-0 Vicryl in the subcutaneous tissues followed by diann in the skin. 0.5% Marcaine with epinephrine was injected into the subcutaneous tissues dressing was applied form of Xeroform 4 x 4 ABD and Ioban tape. Patient tolerated procedure well there is no intraoperative complications and was brought back to the PACU in stable condition.
--- NOTE | 2023-04-19 15:16 | RAD_ITS ---
STUDY: X-RAY - PELVIS AND LEFT HIP REASON FOR EXAM: Female, 52 years old. Follow-up after our RIS of left proximal femur. TECHNIQUE: 2 views of the pelvis and hip. COMPARISON: Intraoperative digital documentation images. FINDINGS: There is a non-specific bowel gas pattern. Soft tissue swelling, soft tissue gas and skin diann at the surgical site. Normal bilateral iliac wings, sacroiliac joints and visualized sacrum. Normal bilateral superior and inferior pubic rami. Normal pubic symphysis. Normal bilateral ischial tuberosities. Left intramedullary kelsie with interlocking dynamic hip screw in anatomic alignment with no complicating features. RAD/Hip Min 2 Views (Portable) IMPRESSION: ORIF of the left proximal femur with no complicating features. Electronically Signed: Adriel Harris MD at 15:37 EDT ,
[2023-04-19] MEDS: Senna/Docusate Sodium 1 Tablet 2 TABLET PO (21:11)
[2023-04-20] MEDS: Cefazolin 0.5 GM in 0.9% Normal Saline (50mL Bag) 50 ML IV ×2 (00:52→13:40)
[2023-04-20] MEDS: 0.9% Normal Saline (1000mL) 1,000 ML 125 ML IV ×2 (04:19→16:38)
[2023-04-20] MEDS: Acetaminophen 500 MG Tablet 1000 MG PO ×3 (05:21→22:25)
[2023-04-20] MEDS: oxyCODONE 5 MG Tablet 10 MG PO ×3 (05:21→14:48)
[2023-04-20 07:08] LABS: Absolute Lymphocyte Count 0.69 X10^3/uL (0.83-4.51); Absolute Neutrophil Count 17.8 X10^3/uL (2.0-7.7); Basophil# 0.04 X10^3/uL; Basophil% 0.2 % (0-1); Lymphocyte # 0.69 X10^3/ul (0.83-4.51); Lymphocyte % 3.5 % (19-41); Mean Corp Hgb Conc 31.4 g/dL (32-36); Mean Corpuscular Hgb 28.1 pg (27.0-32.0); Mean Corpuscular Volume 89.3 fL (81-99); Mean Platelet Vol. 12.1 fl (6.2-12.0); Monocyte# 1.18 X10^3/uL; Monocyte% 5.9 % (0-10); NRBC Flagged by Analyzer 0 % (0-5); Neutrophil # 17.83 X10^3/uL (2.7-7.7); Neutrophil % 89.6 % (47-70); Platelet Count 222 K/mm3 (150-450); RBC Distribution Width CV 12.9 % (11.6-14.6); RBC Distribution Width SD 42.2 fl (35.1-43.9); Red Blood Count 3.92 M/mm3 (4.2-5.4); White Blood Count 19.9 K/mm3 (4.4-11.0)
[2023-04-20 07:35] LABS: Anion Gap 1 (5-15); BUN 34 mg/dL (7-18); BUN/Creat Ratio 20.7 RATIO (10-20); Calcium,Total 8.7 mg/dL (8.5-10.1); Chloride 113 mmol/L (98-107); Creatinine, Serum 1.64 mg/dL (0.55-1.02); EST Glomerular Filtration Rate 35 mL/min (>60); Est Glom Filt Rate - Afr Amer 42 mL/min (>60); Estimated Creatinine Clearance 33.86 ml/min; Glucose 140 mg/dL (74-106); Magnesium 2.5 mg/dL (1.6-2.6); Potassium 4.2 mmol/L (3.5-5.1); Sodium Level 140 mmol/L (136-145)
--- NOTE | 2023-04-20 08:52 | PCM.PN.HOSP ---
Reason for Visit Reason for Visit: Diagnoses Hypokalemia (04/18/23) Essential (primary) hypertension (04/18/23) Hemiplegia and hemiparesis following cerebral infarction affecting left non-dominant side (04/18/23) Acute kidney failure, unspecified (04/18/23) Other symptoms and signs involving the musculoskeletal system (04/18/23) Displaced intertrochanteric fracture of left femur, initial encounter for closed fracture (04/18/23) Subjective Subjective Complaining of pain. Saying the pain was in her knee. Said the pain got worse when he took a blanket off her knee and saying that her ankle was also hurting. Objective Data Objective Data Vital Signs: Vital Signs Temp Pulse Resp BP Pulse Ox O2 Del Method O2 Flow Rate 36.8 C 83 16 129/66 H 94 Nasal Cannula 2 04/19/23 18:52 04/19/23 18:52 04/19/23 18:52 04/19/23 18:52 04/19/23 18:52 04/19/23 18:52 04/19/23 18:52 Oxygen Flow Rate (L/min) 2 Oxygen Delivery Method Nasal Cannula Weight: 58.5 kg Body Mass Index (BMI) 22.1 Intake & Output: Intake and Output for Last 24 Hours 04/18/23 04/19/23 04/20/23 23:59 23:59 23:59 Intake Total 880 / 880 1509 / 2009 1905 / 1905 Output Total 750 / 750 525 / 725 500 / 500 Balance 130 / 130 985 / 1285 1405 / 1405 Lab / Micro Data 04/20/23 06:50 04/20/23 06:50 Labs: Laboratory Results - last 24 hr 04/18/23 03:47: Vitamin D 25-Hydroxy 28.8 04/20/23 06:50: WBC 19.9 H, RBC 3.92 L, Hgb 11.0 L, Hct 35.0 L, MCV 89.3, MCH 28.1, MCHC 31.4 L, RDW Std Deviation 42.2, RDW Coeff of Jovani 12.9, Plt Count 222, MPV 12.1 H, Immature Gran % (Auto) 0.800, Neut % (Auto) 89.6 H, Lymph % (Auto) 3.5 L, Coal % (Auto) 5.9, Eos % (Auto) 0.0, Baso % (Auto) 0.2, Absolute Neuts (auto) 17.8 H, Absolute Lymphs (auto) 0.69 L, Nucleated RBC % 0, Sodium 140, Potassium 4.2, Chloride 113 H, Carbon Dioxide 26.0, Anion Gap 1 L, BUN 34 H, Creatinine 1.64 H, Estim Creat Clear Calc 33.86, Est GFR (MDRD) Af Amer 42 L, Est GFR (MDRD) Non-Af 35 L, BUN/Creatinine Ratio 20.7 H, Glucose 140 H, Calcium 8.7, Magnesium 2.5 Radiography Diagnostic Testing: Radiology Impression Hip X-Ray 04/19/23 14:00 IMPRESSION: Intraoperative digital documentation views. Electronically Signed: Adriel Harris MD at 15:08 EDT , Hip X-Ray 04/19/23 15:16 IMPRESSION: ORIF of the left proximal femur with no complicating features. Electronically Signed: Adriel Harris MD at 15:37 EDT , Rhythm Strip Rhythm Strip: Sinus Rhythm Rate: 65 Ectopy: None Physical Exam Const Constitutional Narrative: Appears older than stated age. Anxious. Removed the blanket from her left knee and she said it hurt. When she was distracted I was actually tapping on her knee and she had no pain whatsoever. Sunitha said that her left ankle was hurting. Resp normal respiratory effort, no retractions, no use of accessory muscles and clear to auscultation bilaterally Cardio regular rate, regular rhythm, S1 normal heart sound and S2 normal heart sound GI normal to inspection, nondistended, normoactive bowel sounds, soft to palpation, non-tender and non-distended Extremity normal to inspection Assessment & Plan Assessment/Plan (1) Closed intertrochanteric fracture of left hip: QUALIFIERS: Encounter type: initial encounter Fracture alignment: displaced Qualified Code(s): S72.142A - Displaced intertrochanteric fracture of left femur, initial encounter for closed fracture PLAN: L femoral neck intertrochanteric fracture with angulation Patient underwent a cephalo-medullary fixation of left hip on 04/19 Pain control Vitamin D level. Was 28.8. Will start ergocalciferol weekly for 8 weeks. Per orthopedics, patient to be weightbearing as tolerated. Dressing change postop day 5 at which time the incision should be cleaned with warm water and antibacterial soap daily. Dry dressing change daily after this point. Follow-up with orthopedics in 2 weeks. (2) Accelerated hypertension: PLAN: Improved Not taking ANY medications as outpt which includes liinopril 40/d She received a 1x dose of lisinopril on 04/17 at 2200. Add amlodipine. Continue PRN hydralazine. Hold lisinopril given ANAND (3) ANAND (acute kidney injury): PLAN: Resolved. Creatinine had jumped up from 1.23 to 2.46, but now down to 1.64. Pt had received ketorolac on 04/18 and lisinopril. Both held. She also received IVF. Monitor (4) Hypokalemia: PLAN: Resolved after replacement Check magnesium PLAN: Plan H/o CVA: Pt to be ASA and low-dose apixaban. Resume post operatively. Continue statin. Code: Patient is a DNR CCA is no intubation. Explained to patient that with surgery DNR_CCA will be revoked aT surgery time; and she will be resuscitated if indicated. DVT Prophylaxis: SCD and subcutaneous Lovenox ordered. Per orthopedics, for 3 weeks Disposition: pt would require SNF upon discharge given her debility, lack of good social/physical support at home. Waiting on insurance approval. Very concerning that patient is drug-seeking as she was complaining of left knee and ankle pain but with distraction, she was not having any pain. Would be cautious in regards to narcotic administration for her. Charges/Coding Visit Charges Inpatient E&M: 70052 Subs Hosp L2
[2023-04-20 09:32] VITALS: BP 165/74; PULSE 78; RESP 16; TEMP 36.8; O2SAT 95
[2023-04-20] MEDS: amLODIPine 5 MG Tablet PO (09:41)
[2023-04-20] MEDS: Enoxaparin 40 MG/0.4 ML Syringe SC (09:41)
[2023-04-20] MEDS: Calcium Carbonate 500 MG Tablet PO ×3 (09:41→18:10)
[2023-04-20] MEDS: Senna/Docusate Sodium 1 Tablet 2 TABLET PO ×2 (09:42→22:24)
[2023-04-20] MEDS: Cholecalciferol (VIT D3) 25 MCG TABLET (1,000 UNITS) PO (09:42)
[2023-04-20] MEDS: 0.9% Saline Lock 10 ML Syringe IV ×3 (11:34→16:17)
[2023-04-20] MEDS: Morphine 4 MG/ML Syringe IV ×2 (12:59→16:12)
[2023-04-20 13:31] VITALS: BP 157/90; PULSE 85; RESP 16; TEMP 36.9; O2SAT 95
--- NOTE | 2023-04-20 15:26 | CASEMGMT ---
Addendum entered by Elvia Benavidez 04/20/23 16:00: Celine called SW back and said they will consider patient. ITALO told Celine a referral will be sent via [facility]. ITALO asked Rosaline donahue/suzy digital sales assistant to send a referral to [facility]. SW updated patient. Elvia Benavidez INSPECTING SUPERVISORDeedee CORTES Original Note: SW met with patient. Introduced self and role at [facility]. SW explained therapy's recommendation for [facility] facility. Patient agreed with this plan. SW provided patient with a list of [facility] facility providers including quality and resource use data and consistent with patient?s preferred geographic region, medical needs, and insurance network were [facility]. ITALO told patient she would just need to pick 3 facilities she would be okay with and SW will work on referrals. Patient said she has been to [facility]. ITALO called Celine at [facility] and asked if she could check to see if they would be able to take patient again. Celine said she will check and get back to . Elvia Benavidez INSPECTING SUPERVISORDeedee CORTES
--- NOTE | 2023-04-20 15:48 | PCM.PN.ORT ---
Subjective Subjective Patient has some psychological distress from all is going on. She does complain of pain but it seems to be controlled she has been up with physical therapy but she states it did not go well. Objective Data Objective Data Vital Signs: Vital Signs Temp Pulse Resp BP Pulse Ox O2 Del Method O2 Flow Rate 98.4 F 85 16 157/90 H 95 Room Air 2 04/20/23 13:31 04/20/23 13:31 04/20/23 13:31 04/20/23 13:31 04/20/23 13:31 04/20/23 13:31 04/19/23 18:52 Oxygen Flow Rate (L/min) 2 Oxygen Delivery Method Room Air Weight: 128 lb 15.527 oz Body Mass Index (BMI) 22.1 Intake & Output: Intake and Output for Last 24 Hours 04/18/23 04/19/23 04/20/23 23:59 23:59 23:59 Intake Total 880 / 880 1510 / 2009 1960 / 1959 Output Total 750 / 750 525 / 725 800 / 800 Balance 130 / 130 985 / 1285 1160 / 1160 Lab / Micro Data 04/20/23 06:50 04/20/23 06:50 Labs: Laboratory Results - last 24 hr 04/20/23 06:50: WBC 19.9 H, RBC 3.92 L, Hgb 11.0 L, Hct 35.0 L, MCV 89.3, MCH 28.1, MCHC 31.4 L, RDW Std Deviation 42.2, RDW Coeff of Jovani 12.9, Plt Count 222, MPV 12.1 H, Immature Gran % (Auto) 0.800, Neut % (Auto) 89.6 H, Lymph % (Auto) 3.5 L, Harnett % (Auto) 5.9, Eos % (Auto) 0.0, Baso % (Auto) 0.2, Absolute Neuts (auto) 17.8 H, Absolute Lymphs (auto) 0.69 L, Nucleated RBC % 0, Sodium 140, Potassium 4.2, Chloride 113 H, Carbon Dioxide 26.0, Anion Gap 1 L, BUN 34 H, Creatinine 1.64 H, Estim Creat Clear Calc 33.86, Est GFR (MDRD) Af Amer 42 L, Est GFR (MDRD) Non-Af 35 L, BUN/Creatinine Ratio 20.7 H, Glucose 140 H, Calcium 8.7, Magnesium 2.5 Rhythm Strip Rhythm Strip: Sinus Rhythm Rate: 65 Ectopy: None Physical Exam Const no apparent distress General Appearance: cooperative Extremity Extremity Narrative: Hip dressing clean dry and intact compartments soft she is able to plantarflex and dorsiflex her ankle but states that she has chronic numbness in her leg from her multiple strokes which is unchanged Assessment & Plan Assessment/Plan (1) Closed intertrochanteric fracture of left hip: QUALIFIERS: Encounter type: initial encounter Fracture alignment: displaced Qualified Code(s): S72.142A - Displaced intertrochanteric fracture of left femur, initial encounter for closed fracture PLAN: Plan Day #1 left trochanteric femoral nail for basicervical femoral neck fracture PT/OT weightbearing as tolerated DVT prophylaxis Lovenox 40 mg SQ daily x 3 weeks dressing change POD #5 at which time incision should be cleand with warm water and antibacterial soap daily and have dry dressing changed daily after this point. f/u in office 2weeks
--- NOTE | 2023-04-20 15:56 | CASEMGMT ---
Dischrage Planning Referral sent to via [facility]. Rosaline Burns, Discharge Planning Asst.
[2023-04-20] MEDS: DiphenhydrAMINE 25 MG Capsule PO ×2 (16:17→22:31)
[2023-04-20 17:55] VITALS: BP 138/69; PULSE 70; RESP 16; TEMP 36.8; O2SAT 95
[2023-04-20] MEDS: oxyCODONE 5 MG Tablet 15 MG PO (19:51)
[2023-04-20 20:41] VITALS: BP 152/86; PULSE 79; RESP 14; TEMP 36.8; O2SAT 99
[2023-04-20 22:27] VITALS: BP 152/86; PULSE 79; RESP 14; TEMP 36.8; O2SAT 99
[2023-04-21] VITALS (13 sets, daily range): BP systolic 152–192; BP diastolic 55–92; PULSE 61–86; RESP 14–20; TEMP 36.7–37.1; O2SAT 95–99
[2023-04-21] MEDS: 0.9% Normal Saline (1000mL) 1,000 ML 125 ML IV ×3 (00:13→17:04)
[2023-04-21] MEDS: oxyCODONE 5 MG Tablet 15 MG PO ×4 (00:41→20:45)
[2023-04-21] MEDS: hydrALAZINE 20 MG/ML Vial 5 MG IV ×2 (03:05→16:03)
[2023-04-21] MEDS: Morphine 4 MG/ML Syringe IV (03:23)
[2023-04-21] MEDS: Acetaminophen 500 MG Tablet 1000 MG PO ×3 (05:24→20:44)
[2023-04-21] MEDS: Calcium Carbonate 500 MG Tablet PO ×3 (09:33→17:08)
[2023-04-21] MEDS: Senna/Docusate Sodium 1 Tablet 2 TABLET PO ×2 (09:34→20:44)
[2023-04-21] MEDS: Cholecalciferol (VIT D3) 25 MCG TABLET (1,000 UNITS) PO (09:34)
[2023-04-21] MEDS: Enoxaparin 40 MG/0.4 ML Syringe SC (09:35)
[2023-04-21] MEDS: amLODIPine 5 MG Tablet PO (09:35)
--- NOTE | 2023-04-21 10:56 | CASEMGMT ---
Per physician patient was interested in [facility]. SW spoke with patient and let her know [facility] is full until next week. Patient wanted SW to check with [facility]. ITALO did send [facility] a note through [facility] asking if a decision has been made. Elvia Benavidez SUPERINTENDENT OF GENERATIONDeedee CORTES
--- NOTE | 2023-04-21 11:05 | CASEMGMT ---
[facility] is declining patient. ITALO notified patient and asked about other choices. SW gave patient the list she was given yesterday. Patient wanted to look at the list and SW come back. Elvia Benavidez MSW SOPHIA
--- NOTE | 2023-04-21 12:15 | CASEMGMT ---
SW went back to patient's room to see if she had made any choices. Patient said she does not know and she has to use the restroom. Elvia CORTES
[2023-04-21] MEDS: Morphine 2 MG/ML Syringe IV (12:52)
--- NOTE | 2023-04-21 13:26 | CASEMGMT ---
Patient still does not know where else to pick. SW asked patient if SW could call someone to see if they could help with choosing a facility. Patient told SW to call her daughter Yashira. SW will call Yashira to obtain SNF choices. Elvia CORTES
--- NOTE | 2023-04-21 13:29 | CASEMGMT ---
ITALO called patient's daughter Yashira and left her a voice mail requesting a return call. Elvia CORTES
[2023-04-21] MEDS: 0.9% Saline Lock 10 ML Syringe IV (16:03)
--- NOTE | 2023-04-21 17:29 | PN.HOSP_ITS ---
Reason for Visit Reason for Visit: Diagnoses Hypokalemia (04/18/23) Essential (primary) hypertension (04/18/23) Hemiplegia and hemiparesis following cerebral infarction affecting left non- dominant side (04/18/23) Acute kidney failure, unspecified (04/18/23) Other symptoms and signs involving the musculoskeletal system (04/18/23) Displaced intertrochanteric fracture of left femur, initial encounter for closed fracture (04/18/23) Subjective Subjective Follow-up for left hip pain. Patient had left hip intertrochanteric fracture. She complains of severe pain over left thigh. Could not extend her left knee. Objective Data Objective Data Vital Signs: Vital Signs Temp Pulse Resp BP Pulse Ox O2 Del Method O2 Flow Rate 98.0 F 74 18 174/55 H 95 Room Air 2 04/21/23 15:00 04/21/23 16:03 04/21/23 15:00 04/21/23 16:03 04/21/23 15:00 04/21/23 15:12 04/19/23 18:52 Oxygen Flow Rate (L/min) 2 Oxygen Delivery Method Room Air Weight: 128 lb 15.527 oz Body Mass Index (BMI) 22.1 Intake & Output: Intake and Output for Last 24 Hours 04/19/23 04/20/23 04/21/23 23:59 23:59 23:59 Intake Total 1509 2960 / 3660 4627.92 / 4627.92 Output Total 525 / 725 1300 / 1700 2049 / 2050 Balance 985 / 1285 1660 / 1960 2577.92 / 2577.92 Lab / Micro Data 04/20/23 06:50 04/20/23 06:50 Rhythm Strip Rhythm Strip: Sinus Rhythm Rate: 65 Ectopy: None Physical Exam Narrative Physical exam General: Alert, Oriented x3, Cooperative HEENT: Atraumatic, PERRLA, EOMI, Normocephalic Oral: No Gingival or Mucosal Lesions/ Ulcerations Neck: Supple, No JVD, Negative Carotid Bruits Lungs: Air entry diminished in bilateral lung bases. No crepitation/rhonchi Cardiovascular: Regular rate, Regular Rhythm, Normal S1, Normal S2, No murmurs Abdomen: Bowel Sounds Present, Soft, Non Tender, Non-Distended : Grady catheter. Dark urine. No renal angle tenderness. No suprapubic tenderness. Extremities: No edema, Capillary Refill Less than 3 Seconds Skin: No rashes, No breakdown Musculoskeletal: Left thigh and hip region tender. Dressing is dry. Left knee flexion deformity. Right lower extremity normal. Neurological: Cranial nerves II-XII grossly intact, DTR 2+/4. No acute focal neurological deficit. Psych/Mental Status: Flat affect. Assessment & Plan Assessment/Plan (1) Closed intertrochanteric fracture of left hip: QUALIFIERS: Encounter type: initial encounter Fracture alignment: displaced Qualified Code(s): S72.142A - Displaced intertrochanteric fracture of left femur, initial encounter for closed fracture PLAN: Left femoral neck intertrochanteric fracture with angulation Patient underwent a cephalo-medullary fixation of left hip on 04/19 Pain control Vitamin D level. Was 28.8. ergocalciferol weekly for 8 weeks. Per orthopedics, patient to be weightbearing as tolerated. Dressing change postop day 5 at which time the incision should be cleaned with warm water and antibacterial soap daily. Dry dressing change daily after this point. Follow- up with orthopedics in 2 weeks. (2) Accelerated hypertension: PLAN: Improved Not taking ANY medications as outpt which includes liinopril 40/d She received a 1x dose of lisinopril on 04/17 at 2200. Add amlodipine. Continue PRN hydralazine. Hold lisinopril given ANAND (3) ANAND (acute kidney injury): PLAN: Patient baseline creatinine runs between 1.01-1.25. Creatinine had jumped up from 1.23 to 2.46, probably from NSAIDs and lisinopril. But now down to 1.64. Monitor kidney function. (4) Hypokalemia: PLAN: Resolved after replacement Check magnesium PLAN: Plan H/o CVA: Pt to be ASA and low-dose apixaban. Resume post operatively. Continue statin. Code: Patient is a DNR CCA is no intubation. Explained to patient that with surgery DNR_CCA will be revoked aT surgery time; and she will be resuscitated if indicated. DVT Prophylaxis: SCD and subcutaneous Lovenox ordered. Per orthopedics, for 3 weeks Disposition: pt would require SNF upon discharge given her debility, lack of good social/physical support at home. Waiting on insurance approval. Very concerning that patient is drug-seeking as she was complaining of left knee and ankle pain but with distraction, she was not having any pain. Would be cautious in regards to narcotic administration for her. Charges/Coding Visit Charges Inpatient E&M: 81087 Subs Hosp L2
[2023-04-22] VITALS (11 sets, daily range): BP systolic 158–208; BP diastolic 68–101; PULSE 63–92; RESP 16; TEMP 36.6–37.1; O2SAT 96–98
[2023-04-22] MEDS: 0.9% Normal Saline (1000mL) 1,000 ML 125 ML IV ×3 (00:14→17:32)
[2023-04-22] MEDS: Acetaminophen 500 MG Tablet 1000 MG PO ×3 (03:40→20:41)
[2023-04-22] MEDS: hydrALAZINE 20 MG/ML Vial 5 MG IV ×2 (03:41→16:44)
--- NOTE | 2023-04-22 03:57 | PCM.HOSP.N ---
Hospitalist Note Staff concerned as following friend present she seemed more lethargic and sedate, diaphoretic with polysubstance abuse history per chart review.
[2023-04-22 04:23] LABS: Amphetamine Urine VISTA NEGATIVE (<1000 ng/mL); Barbiturate Urine VISTA NEGATIVE (< 200 ng/mL); Benzodiazepine Urine VISTA NEGATIVE (< 200 ng/mL); Cocaine Urine VISTA NEGATIVE (< 300 ng/mL); Ecstacy Urine VISTA NEGATIVE (< 500 ng/mL); Methadone Urine VISTA NEGATIVE (< 300 ng/mL); PCP Urine VISTA NEGATIVE (< 25 ng/mL); THC Urine VISTA POSITIVE (< 50 ng/mL); Vista UDS pH Range 7
[2023-04-22] MEDS: oxyCODONE 5 MG Tablet 15 MG PO ×3 (05:37→20:42)
[2023-04-22 07:05] LABS: Absolute Neutrophil Count 9.4 X10^3/uL (2.0-7.7); Basophil# 0.05 X10^3/uL; Basophil% 0.4 % (0-1); Eosinophil# 0.32 X10^3/uL; Eosinophils% 2.6 % (0-5); Hematocrit 36.2 % (37-47); Hemoglobin 11.6 g/dL (12.0-15.0); Lymphocyte % 9.1 % (19-41); Mean Corpuscular Volume 87.4 fL (81-99); Mean Platelet Vol. 12.7 fl (6.2-12.0); Monocyte# 1.15 X10^3/uL; Monocyte% 9.5 % (0-10); NRBC Flagged by Analyzer 0 % (0-5); Neutrophil # 9.42 X10^3/uL (2.7-7.7); Neutrophil % 77.8 % (47-70); Platelet Count 247 K/mm3 (150-450); RBC Distribution Width CV 13.1 % (11.6-14.6); RBC Distribution Width SD 41.8 fl (35.1-43.9); Red Blood Count 4.14 M/mm3 (4.2-5.4); White Blood Count 12.1 K/mm3 (4.4-11.0)
[2023-04-22 07:30] LABS: Anion Gap 7 (5-15); BUN 14 mg/dL (7-18); BUN/Creat Ratio 15.1 RATIO (10-20); Calcium,Total 8.7 mg/dL (8.5-10.1); Chloride 113 mmol/L (98-107); Creatinine, Serum 0.93 mg/dL (0.55-1.02); EST Glomerular Filtration Rate 67 mL/min (>60); Est Glom Filt Rate - Afr Amer 81 mL/min (>60); Estimated Creatinine Clearance 59.72 ml/min; Glucose 111 mg/dL (74-106); Potassium 3.5 mmol/L (3.5-5.1); Sodium Level 142 mmol/L (136-145)
--- NOTE | 2023-04-22 08:53 | CASEMGMT ---
SW has not heard back from patient's daughter and patient is ready for d/c. SW went to patient's room and let her know SW has not heard from her daughter. SW went over the list with patient. Patient said she would prefer to stay in [place]. SW went over the 3 [place] facilities [facility], [facility], and [facility]. [facility] is full currently. Patient was open to referrals being sent to [facility] and [facility]. ITALO asked Rosaline d/c director traffic and planning to send referrals to [facility] and [facility]. Elvia Benavidez SYSTEMS SECURITY ANALYST SOPHIA
--- NOTE | 2023-04-22 09:09 | CASEMGMT ---
Discharge Planning Referrals sent to [facility] and [facility] via [facility]. Rosaline Burns, Discharg Planning Asst.
[2023-04-22] MEDS: Calcium Carbonate 500 MG Tablet PO ×3 (10:08→17:33)
[2023-04-22] MEDS: Enoxaparin 40 MG/0.4 ML Syringe SC (10:08)
[2023-04-22] MEDS: Cholecalciferol (VIT D3) 25 MCG TABLET (1,000 UNITS) PO (10:09)
[2023-04-22] MEDS: amLODIPine 5 MG Tablet PO (10:09)
[2023-04-22] MEDS: Senna/Docusate Sodium 1 Tablet 2 TABLET PO ×2 (10:09→20:41)
--- NOTE | 2023-04-22 12:05 | CASEMGMT ---
[facility] accepted patient. [facility] has not reviewed referral yet. SW spoke with patient and she is agreeable to [facility]. SW notified Rosaline d/suzy financial planning assistant to notify [facility]. Elvia CORTES
--- NOTE | 2023-04-22 15:10 | PCM.PN.HOSP ---
Reason for Visit Reason for Visit: Diagnoses Hypokalemia (04/18/23) Essential (primary) hypertension (04/18/23) Hemiplegia and hemiparesis following cerebral infarction affecting left non-dominant side (04/18/23) Acute kidney failure, unspecified (04/18/23) Other symptoms and signs involving the musculoskeletal system (04/18/23) Displaced intertrochanteric fracture of left femur, initial encounter for closed fracture (04/18/23) Objective Data Objective Data Vital Signs: Vital Signs Temp Pulse Resp BP Pulse Ox O2 Del Method O2 Flow Rate 98 F 92 16 159/91 H 98 Room Air 2 04/22/23 13:47 04/22/23 13:47 04/22/23 13:47 04/22/23 13:47 04/22/23 13:47 04/22/23 13:47 04/19/23 18:52 Oxygen Flow Rate (L/min) 2 Oxygen Delivery Method Room Air Weight: 128 lb 15.527 oz Body Mass Index (BMI) 22.1 Intake & Output: Intake and Output for Last 24 Hours 04/20/23 04/21/23 04/22/23 23:59 23:59 23:59 Intake Total 2960 / 3660 4627.92 / 4867.92 2135.83 / 2135.83 Output Total 1300 / 1700 2050 / 3550 1850 / 1850 Balance 1660 / 1960 2577.92 / 1317.92 285.83 / 285.83 Lab / Micro Data 04/22/23 06:11 04/22/23 06:11 Labs: Laboratory Results - last 24 hr 04/22/23 06:11: WBC 12.1 H, RBC 4.14 L, Hgb 11.6 L, Hct 36.2 L, MCV 87.4, MCH 28.0, MCHC 32.0, RDW Std Deviation 41.8, RDW Coeff of Jovani 13.1, Plt Count 247, MPV 12.7 H, Immature Gran % (Auto) 0.600, Neut % (Auto) 77.8 H, Lymph % (Auto) 9.1 L, [place] % (Auto) 9.5, Eos % (Auto) 2.6, Baso % (Auto) 0.4, Absolute Neuts (auto) 9.4 H, Absolute Lymphs (auto) 1.10, Nucleated RBC % 0, Sodium 142, Potassium 3.5, Chloride 113 H, Carbon Dioxide 22.0, Anion Gap 7, BUN 14, Creatinine 0.93, Estim Creat Clear Calc 59.72, Est GFR (MDRD) Af Amer 81, Est GFR (MDRD) Non-Af 67, BUN/Creatinine Ratio 15.1, Glucose 111 H, Calcium 8.7 04/22/23 : Urine Opiates Screen POSITIVE H, Urine Methadone Screen NEGATIVE, Ur Barbiturates Screen NEGATIVE, Ur Phencyclidine Scrn NEGATIVE, Ur Amphetamines Screen NEGATIVE, MDMA (Ecstasy) Screen NEGATIVE, U Benzodiazepines Scrn NEGATIVE, Urine Cocaine Screen NEGATIVE, U Cannabinoids Screen POSITIVE H, Ur Drug Screen Comment Rhythm Strip Rhythm Strip: Sinus Rhythm Rate: 65 Ectopy: None Physical Exam Narrative Physical exam Patient is still has left lower extremity pain on extension. Moving her bowel. Patient wants to keep Grady catheter as she cannot sit down for urination. Physical exam General: Alert, Oriented x3, Cooperative HEENT: Atraumatic, PERRLA, EOMI, Normocephalic Oral: No Gingival or Mucosal Lesions/ Ulcerations Neck: Supple, No JVD, Negative Carotid Bruits Lungs: Air entry diminished in bilateral lung bases. No crepitation/rhonchi Cardiovascular: Regular rate, Regular Rhythm, Normal S1, Normal S2, No murmurs Abdomen: Bowel Sounds Present, Soft, Non Tender, Non-Distended : Grady catheter. Dark urine. No renal angle tenderness. No suprapubic tenderness. Extremities: No edema, Capillary Refill Less than 3 Seconds Skin: No rashes, No breakdown Musculoskeletal: Left thigh and hip region tender. Dressing is dry. Left knee flexion deformity. Right lower extremity normal. Neurological: Cranial nerves II-XII grossly intact, DTR 2+/4. No acute focal neurological deficit. Psych/Mental Status: Flat affect. Assessment & Plan Assessment/Plan (1) Closed intertrochanteric fracture of left hip: QUALIFIERS: Encounter type: initial encounter Fracture alignment: displaced Qualified Code(s): S72.142A - Displaced intertrochanteric fracture of left femur, initial encounter for closed fracture PLAN: Left femoral neck intertrochanteric fracture with angulation Patient underwent a cephalo-medullary fixation of left hip on 04/19 Pain control Vitamin D level. Was 28.8. ergocalciferol weekly for 8 weeks. Per orthopedics, patient to be weightbearing as tolerated. Dressing change postop day 5 at which time the incision should be cleaned with warm water and antibacterial soap daily. Dry dressing change daily after this point. Follow-up with orthopedics in 2 weeks. 04/22: Continue PT and OT. Waiting for pre-CERT. No acute distress. (2) Accelerated hypertension: PLAN: Improved Not taking ANY medications as outpt which includes liinopril 40/d She received a 1x dose of lisinopril on 04/17 at 2200. Add amlodipine. Continue PRN hydralazine. Hold lisinopril given ANAND (3) ANAND (acute kidney injury): PLAN: Patient baseline creatinine runs between 1.01-1.25. Creatinine had jumped up from 1.23 to 2.46, probably from NSAIDs and lisinopril. But now down to 1.64. Monitor kidney function. (4) Hypokalemia: PLAN: Resolved after replacement Check magnesium PLAN: Plan H/o CVA: Pt to be ASA and low-dose apixaban. Resume post operatively. Continue statin. Code: Patient is a DNR CCA is no intubation. Explained to patient that with surgery DNR_CCA will be revoked aT surgery time; and she will be resuscitated if indicated. DVT Prophylaxis: SCD and subcutaneous Lovenox ordered. Per orthopedics, for 3 weeks Disposition: pt would require SNF upon discharge given her debility, lack of good social/physical support at home. Waiting on insurance approval. As per previous hospitalist, her behavior is concerning for drug-seeking as she was complaining of left knee and ankle pain but with distraction, she was not having any pain. Would be cautious in regards to narcotic administration for her. Charges/Coding Visit Charges Inpatient E&M: 89845 Subs Hosp L2
[2023-04-22] MEDS: Morphine 4 MG/ML Syringe IV (16:47)
[2023-04-22] MEDS: Labetalol (Prefilled) 20 MG/4 ML IV (17:56)
[2023-04-22] MEDS: DiphenhydrAMINE 25 MG Capsule PO (20:41)
[2023-04-23] VITALS (11 sets, daily range): BP systolic 130–178; BP diastolic 50–78; PULSE 63–78; RESP 16; TEMP 36.7–36.8; O2SAT 90–98
[2023-04-23] MEDS: 0.9% Normal Saline (1000mL) 1,000 ML 125 ML IV ×3 (01:35→17:28)
[2023-04-23] MEDS: Acetaminophen 500 MG Tablet 1000 MG PO ×3 (04:38→20:57)
[2023-04-23 07:22] LABS: Absolute Lymphocyte Count 1.45 X10^3/uL (0.83-4.51); Absolute Neutrophil Count 8.6 X10^3/uL (2.0-7.7); Basophil# 0.04 X10^3/uL; Basophil% 0.3 % (0-1); Eosinophil# 0.47 X10^3/uL; Eosinophils% 4.1 % (0-5); Hematocrit 33.8 % (37-47); Hemoglobin 10.7 g/dL (12.0-15.0); Lymphocyte # 1.45 X10^3/ul (0.83-4.51); Lymphocyte % 12.6 % (19-41); Mean Corp Hgb Conc 31.7 g/dL (32-36); Mean Corpuscular Volume 88.5 fL (81-99); Mean Platelet Vol. 12.9 fl (6.2-12.0); Monocyte# 0.93 X10^3/uL; Monocyte% 8.1 % (0-10); NRBC Flagged by Analyzer 0 % (0-5); Neutrophil # 8.57 X10^3/uL (2.7-7.7); Neutrophil % 74.6 % (47-70); Platelet Count 245 K/mm3 (150-450); RBC Distribution Width CV 12.9 % (11.6-14.6); RBC Distribution Width SD 41.9 fl (35.1-43.9); Red Blood Count 3.82 M/mm3 (4.2-5.4); White Blood Count 11.5 K/mm3 (4.4-11.0)
[2023-04-23 08:01] LABS: Anion Gap 6 (5-15); BUN 12 mg/dL (7-18); BUN/Creat Ratio 13.9 RATIO (10-20); Calcium,Total 8.6 mg/dL (8.5-10.1); Chloride 112 mmol/L (98-107); Creatinine, Serum 0.87 mg/dL (0.55-1.02); EST Glomerular Filtration Rate 72 mL/min (>60); Est Glom Filt Rate - Afr Amer 87 mL/min (>60); Estimated Creatinine Clearance 63.83 ml/min; Glucose 96 mg/dL (74-106); Potassium 3.7 mmol/L (3.5-5.1); Sodium Level 140 mmol/L (136-145)
[2023-04-23] MEDS: Calcium Carbonate 500 MG Tablet PO ×2 (11:02→17:30)
[2023-04-23] MEDS: Enoxaparin 40 MG/0.4 ML Syringe SC (11:03)
[2023-04-23] MEDS: amLODIPine 5 MG Tablet PO (11:03)
[2023-04-23] MEDS: Cholecalciferol (VIT D3) 25 MCG TABLET (1,000 UNITS) PO (11:04)
[2023-04-23] MEDS: Senna/Docusate Sodium 1 Tablet 2 TABLET PO ×2 (11:04→20:57)
[2023-04-23] MEDS: oxyCODONE 5 MG Tablet 15 MG PO ×2 (12:22→17:35)
[2023-04-23] MEDS: Bisacodyl 5 MG Tablet 10 MG PO (12:23)
[2023-04-23] MEDS: Polyethylene Glycol 3350 17 GM PACKET PO (12:24)
[2023-04-23] MEDS: hydrALAZINE 20 MG/ML Vial 5 MG IV (15:52)
[2023-04-23] MEDS: Morphine 4 MG/ML Syringe IV (15:54)
--- NOTE | 2023-04-23 16:41 | PCM.PN.HOSP ---
Reason for Visit Reason for Visit: Diagnoses Hypokalemia (04/18/23) Essential (primary) hypertension (04/18/23) Hemiplegia and hemiparesis following cerebral infarction affecting left non-dominant side (04/18/23) Acute kidney failure, unspecified (04/18/23) Other symptoms and signs involving the musculoskeletal system (04/18/23) Displaced intertrochanteric fracture of left femur, initial encounter for closed fracture (04/18/23) Objective Data Objective Data Vital Signs: Vital Signs Temp Pulse Resp BP Pulse Ox O2 Del Method O2 Flow Rate 98.2 F 63 16 178/78 H 97 Room Air 2 04/23/23 15:46 04/23/23 15:52 04/23/23 15:46 04/23/23 15:52 04/23/23 15:46 04/23/23 15:46 04/19/23 18:52 Oxygen Flow Rate (L/min) 2 Oxygen Delivery Method Room Air Weight: 128 lb 15.527 oz Body Mass Index (BMI) 22.1 Intake & Output: Intake and Output for Last 24 Hours 04/21/23 04/22/23 04/23/23 23:59 23:59 23:59 Intake Total 4627.92 / 4867.92 4067.50 / 4307.50 2480 / 2480 Output Total 2050 / 3550 2400 / 2900 2300 / 2300 Balance 2577.92 / 1317.92 1667.50 / 1407.50 180 / 180 Lab / Micro Data 04/23/23 06:24 04/23/23 06:24 Labs: Laboratory Results - last 24 hr 04/23/23 06:24: WBC 11.5 H, RBC 3.82 L, Hgb 10.7 L, Hct 33.8 L, MCV 88.5, MCH 28.0, MCHC 31.7 L, RDW Std Deviation 41.9, RDW Coeff of Jovani 12.9, Plt Count 245, MPV 12.9 H, Immature Gran % (Auto) 0.300, Neut % (Auto) 74.6 H, Lymph % (Auto) 12.6 L, [place] % (Auto) 8.1, Eos % (Auto) 4.1, Baso % (Auto) 0.3, Absolute Neuts (auto) 8.6 H, Absolute Lymphs (auto) 1.45, Nucleated RBC % 0, Sodium 140, Potassium 3.7, Chloride 112 H, Carbon Dioxide 22.0, Anion Gap 6, BUN 12, Creatinine 0.87, Estim Creat Clear Calc 63.83, Est GFR (MDRD) Af Amer 87, Est GFR (MDRD) Non-Af 72, BUN/Creatinine Ratio 13.9, Glucose 96, Calcium 8.6 Rhythm Strip Rhythm Strip: Sinus Rhythm Rate: 65 Ectopy: None Physical Exam Narrative Physical exam Patient is still has left lower extremity pain on extension. She states she did not move her bowel. Physical exam General: Alert, Oriented x3, Cooperative HEENT: Atraumatic, PERRLA, EOMI, Normocephalic Oral: No Gingival or Mucosal Lesions/ Ulcerations Neck: Supple, No JVD, Negative Carotid Bruits Lungs: Air entry diminished in bilateral lung bases. No crepitation/rhonchi Cardiovascular: Regular rate, Regular Rhythm, Normal S1, Normal S2, No murmurs Abdomen: Bowel Sounds Present, Soft, Non Tender, Non-Distended : Grady catheter. Dark urine. No renal angle tenderness. No suprapubic tenderness. Extremities: No edema, Capillary Refill Less than 3 Seconds Skin: No rashes, No breakdown Musculoskeletal: Left thigh and hip region tender. Dressing is dry. Left knee flexion deformity. Right lower extremity normal. Neurological: Cranial nerves II-XII grossly intact, DTR 2+/4. No acute focal neurological deficit. Psych/Mental Status: Flat affect. Assessment & Plan Assessment/Plan (1) Closed intertrochanteric fracture of left hip: QUALIFIERS: Encounter type: initial encounter Fracture alignment: displaced Qualified Code(s): S72.142A - Displaced intertrochanteric fracture of left femur, initial encounter for closed fracture PLAN: Left femoral neck intertrochanteric fracture with angulation Patient underwent a cephalo-medullary fixation of left hip on 04/19 Pain control Vitamin D level. Was 28.8. ergocalciferol weekly for 8 weeks. Per orthopedics, patient to be weightbearing as tolerated. Dressing change postop day 5 at which time the incision should be cleaned with warm water and antibacterial soap daily. Dry dressing change daily after this point. Follow-up with orthopedics in 2 weeks. 04/22: Continue PT and OT. Waiting for pre-CERT. No acute distress. 04/23: Still waiting for pre-CERT. Continue PT and OT. Patient has pain over left knee joint. (2) Accelerated hypertension: PLAN: Improved Not taking ANY medications as outpt which includes liinopril 40/d She received a 1x dose of lisinopril on 04/17 at 2200. Add amlodipine. Continue PRN hydralazine. Hold lisinopril given ANAND 04/23: Blood pressure 178/78Hydralazine 50 mg 3 times daily. Amlodipine dose increased to 10 mg daily.. (3) ANAND (acute kidney injury): PLAN: Patient baseline creatinine runs between 1.01-1.25. Creatinine had jumped up from 1.23 to 2.46, probably from NSAIDs and lisinopril. But now down to 1.64. Monitor kidney function. 04/23: Creatinine 0.87. ANAND resolved. (4) Hypokalemia: PLAN: Resolved after replacement Check magnesium PLAN: Plan H/o CVA: Pt to be ASA and low-dose apixaban. Resume post operatively. Continue statin. Code: Patient is a DNR CCA is no intubation. Explained to patient that with surgery DNR_CCA will be revoked aT surgery time; and she will be resuscitated if indicated. DVT Prophylaxis: SCD and subcutaneous Lovenox ordered. Per orthopedics, for 3 weeks Disposition: pt would require SNF upon discharge given her debility, lack of good social/physical support at home. Waiting on insurance approval. As per previous hospitalist, her behavior is concerning for drug-seeking as she was complaining of left knee and ankle pain but with distraction, she was not having any pain. Would be cautious in regards to narcotic administration for her. Charges/Coding Visit Charges Inpatient E&M: 05326 Subs Hosp L2
[2023-04-23] MEDS: Menthol/Lanolin/Calamine/Znox 113 GM Tube 1 APPLIC TOPICAL (17:29)
[2023-04-23] MEDS: hydrALAZINE 50 MG Tablet PO ×2 (17:35→20:57)
[2023-04-24] VITALS (10 sets, daily range): BP systolic 101–156; BP diastolic 50–69; PULSE 63–85; RESP 16–18; TEMP 36.5–37.1; O2SAT 91–99
[2023-04-24] MEDS: oxyCODONE 5 MG Tablet 15 MG PO ×4 (03:14→20:13)
[2023-04-24] MEDS: hydrALAZINE 50 MG Tablet PO ×3 (03:16→21:35)
[2023-04-24] MEDS: Acetaminophen 500 MG Tablet 1000 MG PO ×3 (03:16→21:35)
[2023-04-24] MEDS: 0.9% Normal Saline (1000mL) 1,000 ML 125 ML IV ×3 (03:16→17:02)
[2023-04-24] MEDS: DiphenhydrAMINE 25 MG Capsule PO ×3 (08:42→23:33)
[2023-04-24] MEDS: Calcium Carbonate 500 MG Tablet PO ×3 (08:43→17:02)
--- NOTE | 2023-04-24 09:52 | PN.HOSP_ITS ---
Reason for Visit Reason for Visit: Diagnoses Hypokalemia (04/18/23) Essential (primary) hypertension (04/18/23) Hemiplegia and hemiparesis following cerebral infarction affecting left non- dominant side (04/18/23) Acute kidney failure, unspecified (04/18/23) Other symptoms and signs involving the musculoskeletal system (04/18/23) Displaced intertrochanteric fracture of left femur, initial encounter for closed fracture (04/18/23) Objective Data Objective Data Vital Signs: Vital Signs Temp Pulse Resp BP Pulse Ox O2 Del Method O2 Flow Rate 97.7 F L 85 16 151/65 H 97 Room Air 2 04/24/23 08:37 04/24/23 08:37 04/24/23 08:37 04/24/23 08:37 04/24/23 08:37 04/24/23 08:37 04/19/23 18:52 Oxygen Flow Rate (L/min) 2 Oxygen Delivery Method Room Air Weight: 128 lb 15.527 oz Body Mass Index (BMI) 22.1 Intake & Output: Intake and Output for Last 24 Hours 04/22/23 04/23/23 04/24/23 23:59 23:59 23:59 Intake Total 4067.50 / 4307.50 3524.17 / 3764.17 2036.25 / 2036.25 Output Total 2400 / 2900 3050 / 3550 500 / 500 Balance 1667.50 / 1407.50 474.17 / 214.17 1536.25 / 1536.25 Lab / Micro Data 04/23/23 06:24 04/23/23 06:24 Rhythm Strip Rhythm Strip: Sinus Rhythm Rate: 65 Ectopy: None Physical Exam Narrative Physical exam Patient is still has left lower extremity pain on extension. She states she did not move her bowel. Dulcolax 10 mg ordered. Physical exam General: Alert, Oriented x3, Cooperative HEENT: Atraumatic, PERRLA, EOMI, Normocephalic Oral: Oral mucosa moist. No Gingival or Mucosal Lesions/ Ulcerations Neck: Supple, No JVD, Negative Carotid Bruits Lungs: Air entry diminished in bilateral lung bases. No crepitation/rhonchi Cardiovascular: Regular rate, Regular Rhythm, Normal S1, Normal S2, No murmurs Abdomen: Bowel Sounds Present, Soft, Non Tender, Non-Distended : Grady catheter. Dark urine. No renal angle tenderness. No suprapubic tenderness. Extremities: No edema, Capillary Refill Less than 3 Seconds Skin: No rashes, No breakdown Musculoskeletal: Left thigh and hip region tender. Dressing is dry. Left knee flexion deformity with severe limitation of ROM. Right lower extremity normal. Neurological: Cranial nerves II-XII grossly intact, DTR 2+/4. No acute focal neurological deficit. Psych/Mental Status: Flat affect. Assessment & Plan Assessment/Plan (1) Closed intertrochanteric fracture of left hip: QUALIFIERS: Encounter type: initial encounter Fracture alignment: displaced Qualified Code(s): S72.142A - Displaced intertrochanteric fracture of left femur, initial encounter for closed fracture PLAN: Left femoral neck intertrochanteric fracture with angulation Patient underwent a cephalo-medullary fixation of left hip on 04/19 Pain control Vitamin D level. Was 28.8. ergocalciferol weekly for 8 weeks. Per orthopedics, patient to be weightbearing as tolerated. Dressing change postop day 5 at which time the incision should be cleaned with warm water and antibacterial soap daily. Dry dressing change daily after this point. Follow- up with orthopedics in 2 weeks. 04/22: Continue PT and OT. Waiting for pre-CERT. No acute distress. 04/23: Still waiting for pre-CERT. Continue PT and OT. Patient has pain over left knee joint. (2) Accelerated hypertension: PLAN: Improved Not taking ANY medications as outpt which includes liinopril 40/d She received a 1x dose of lisinopril on 04/17 at 2200. Add amlodipine. Continue PRN hydralazine. Hold lisinopril given ANAND 04/23: Blood pressure 178/78Hydralazine 50 mg 3 times daily. Amlodipine dose increased to 10 mg daily. 04/24: Blood pressure is 155/65. Continue antihypertensive medications. (3) ANAND (acute kidney injury): PLAN: Patient baseline creatinine runs between 1.01-1.25. Creatinine had jumped up from 1.23 to 2.46, probably from NSAIDs and lisinopril. But now down to 1.64. Monitor kidney function. 04/23: Creatinine 0.87. ANAND resolved. (4) Hypokalemia: PLAN: Resolved after replacement Check magnesium PLAN: Plan H/o CVA: Pt to be ASA and low-dose apixaban. Resume post operatively. Continue s tatin. Severe constipation: Patient on MiraLAX 17 g twice daily, senna S2 were ordered twice daily. Dulcolax 10 mg also being given intermittently. Code: Patient is a DNR CCA is no intubation. Explained to patient that with surgery DNR_CCA will be revoked aT surgery time; and she will be resuscitated if indicated. DVT Prophylaxis: SCD and subcutaneous Lovenox ordered. Per orthopedics, for 3 weeks Disposition: pt would require SNF upon discharge given her debility, lack of good social/physical support at home. Waiting on insurance approval. As per previous hospitalist, her behavior is concerning for drug-seeking as she was complaining of left knee and ankle pain but with distraction, she was not having any pain. Would be cautious in regards to narcotic administration for her. Charges/Coding Visit Charges Inpatient E&M: 85855 Subs Hosp L2
[2023-04-24] MEDS: Menthol/Lanolin/Calamine/Znox 113 GM Tube 1 APPLIC TOPICAL ×3 (10:25→21:36)
[2023-04-24] MEDS: Enoxaparin 40 MG/0.4 ML Syringe SC (10:25)
[2023-04-24] MEDS: Polyethylene Glycol 3350 17 GM PACKET PO ×2 (10:26→21:35)
[2023-04-24] MEDS: amLODIPine 10 MG Tablet PO (10:27)
[2023-04-24] MEDS: Senna/Docusate Sodium 1 Tablet 2 TABLET PO ×2 (10:27→21:34)
[2023-04-24] MEDS: Cholecalciferol (VIT D3) 25 MCG TABLET (1,000 UNITS) PO (10:27)
[2023-04-24] MEDS: Bisacodyl 5 MG Tablet 10 MG PO (17:00)
[2023-04-24] MEDS: Morphine 4 MG/ML Syringe IV (17:00)
[2023-04-25] VITALS (10 sets, daily range): BP systolic 107–168; BP diastolic 47–79; PULSE 61–87; RESP 16–18; TEMP 36.6–36.8; O2SAT 93–97
[2023-04-25] MEDS: oxyCODONE 5 MG Tablet 15 MG PO ×6 (01:12→22:34)
[2023-04-25] MEDS: 0.9% Saline Lock 10 ML Syringe IV ×2 (04:01→10:06)
[2023-04-25] MEDS: Morphine 4 MG/ML Syringe IV (04:01)
[2023-04-25] MEDS: hydrALAZINE 50 MG Tablet PO ×2 (05:55→21:35)
[2023-04-25] MEDS: Acetaminophen 500 MG Tablet 1000 MG PO ×3 (05:56→21:35)
[2023-04-25] MEDS: Menthol/Lanolin/Calamine/Znox 113 GM Tube 1 APPLIC TOPICAL ×4 (09:34→21:35)
[2023-04-25] MEDS: Calcium Carbonate 500 MG Tablet PO ×3 (09:34→17:31)
[2023-04-25] MEDS: Polyethylene Glycol 3350 17 GM PACKET PO ×2 (09:35→21:35)
[2023-04-25] MEDS: Enoxaparin 40 MG/0.4 ML Syringe SC (09:35)
[2023-04-25] MEDS: amLODIPine 10 MG Tablet PO (09:35)
[2023-04-25] MEDS: DiphenhydrAMINE 25 MG Capsule PO ×3 (09:36→23:56)
[2023-04-25] MEDS: Senna/Docusate Sodium 1 Tablet 2 TABLET PO ×2 (09:36→21:35)
[2023-04-25] MEDS: Cholecalciferol (VIT D3) 25 MCG TABLET (1,000 UNITS) PO (09:36)
--- NOTE | 2023-04-25 09:37 | PN.HOSP_ITS ---
Subjective Subjective No issues overnight awaiting SNF placement Objective Data Objective Data Vital Signs: Vital Signs Temp Pulse Resp BP Pulse Ox O2 Del Method O2 Flow Rate 97.9 F 82 16 120/74 96 Room Air 2 04/25/23 09:05 04/25/23 09:05 04/25/23 09:05 04/25/23 09:05 04/25/23 09:05 04/25/23 09:21 04/19/23 18:52 Oxygen Flow Rate (L/min) 2 Oxygen Delivery Method Room Air Weight: 128 lb 15.527 oz Body Mass Index (BMI) 22.1 Intake & Output: Intake and Output for Last 24 Hours 04/24/23 04/25/23 04/26/23 04:59 03:59 03:59 Intake Total 360 / 360 Output Total 500 / 500 Balance -140 / -140 Lab / Micro Data 04/23/23 06:24 04/23/23 06:24 Rhythm Strip Rhythm Strip: Sinus Rhythm Rate: 65 Ectopy: None Physical Exam Narrative General: Alert, Oriented x3, Cooperative, No apparent distress HEENT: Atraumatic, PERRLA, EOMI, Normocephalic Oral: Moist Mucosa Neck: Supple, No JVD Lungs: Clear to auscultation, Normal air movement, No rhonchi, No wheeze, No rales Cardiovascular: Regular rate, Regular Rhythm, Normal S1, Normal S2, No murmurs Abdomen: Soft, Non Tender, Non-Distended, No Hepato-splenomegaly Extremities: No edema, Capillary Refill Less than 3 Seconds Skin: Incision CDI Musculoskeletal: Tenderness to left hip Neurological: Cranial nerves II-XII grossly intact, Motor Exam 5/5 strength throughout, Sensory exam intact to light touch and pain Psych/Mental Status: Flat Assessment & Plan Assessment/Plan (1) Closed intertrochanteric fracture of left hip: QUALIFIERS: Encounter type: initial encounter Fracture alignment: displaced Qualified Code(s): S72.142A - Displaced intertrochanteric fracture of left femur, initial encounter for closed fracture PLAN: Left femoral neck intertrochanteric fracture with angulation Patient underwent a cephalo-medullary fixation of left hip on 04/19 Pain control Vitamin D level. Was 28.8. ergocalciferol weekly for 8 weeks. Per orthopedics, patient to be weightbearing as tolerated. Dressing change postop day 5 at which time the incision should be cleaned with warm water and antibacterial soap daily. Dry dressing change daily after this point. Follow- up with orthopedics in 2 weeks. 04/22: Continue PT and OT. Waiting for pre-CERT. No acute distress. 04/23: Still waiting for pre-CERT. Continue PT and OT. Patient has pain over left knee joint. 04/25/2023: Awaiting pre-CERT (2) Accelerated hypertension: PLAN: Improved Not taking ANY medications as outpt which includes liinopril 40/d She received a 1x dose of lisinopril on 04/17 at 2200. Add amlodipine. Continue PRN hydralazine. Hold lisinopril given ANAND 04/23: Blood pressure 178/78Hydralazine 50 mg 3 times daily. Amlodipine dose increased to 10 mg daily. 04/24: Blood pressure is 155/65. Continue antihypertensive medications. 04/25/2023: ANAND has resolved we will trial her on a lower dose lisinopril (3) ANAND (acute kidney injury): PLAN: Patient baseline creatinine runs between 1.01-1.25. Creatinine had jumped up from 1.23 to 2.46, probably from NSAIDs and lisinopril. But now down to 1.64. Monitor kidney function. 04/23: Creatinine 0.87. ANAND resolved. (4) Hypokalemia: PLAN: Resolved after replacement Check magnesium PLAN: Plan H/o CVA: Pt to be ASA and low-dose apixaban. Resume post operatively. Continue statin. Severe constipation: Patient on MiraLAX 17 g twice daily, senna S2 were ordered twice daily. Dulcolax 10 mg also being given intermittently. DVT: Lovenox Disposition: pt would require SNF upon discharge given her debility, lack of good social/physical support at home. Waiting on insurance approval. Charges/Coding Visit Charges Inpatient E&M: 35939 Subs Hosp L2
[2023-04-25] MEDS: Lisinopril 10 MG Tablet PO (11:09)
[2023-04-26] VITALS (10 sets, daily range): BP systolic 88–158; BP diastolic 56–79; PULSE 64–100; RESP 16–18; TEMP 36.2–36.8; O2SAT 95–97
[2023-04-26] MEDS: oxyCODONE 5 MG Tablet 15 MG PO ×4 (04:26→22:13)
[2023-04-26] MEDS: Acetaminophen 500 MG Tablet 1000 MG PO ×3 (05:25→22:19)
[2023-04-26] MEDS: hydrALAZINE 50 MG Tablet PO ×3 (05:26→22:16)
[2023-04-26 06:22] LABS: Absolute Lymphocyte Count 1.37 X10^3/uL (0.83-4.51); Absolute Neutrophil Count 11.6 X10^3/uL (2.0-7.7); Basophil# 0.08 X10^3/uL; Basophil% 0.5 % (0-1); Eosinophils% 3.3 % (0-5); Hematocrit 32.7 % (37-47); Hemoglobin 10.4 g/dL (12.0-15.0); Lymphocyte # 1.37 X10^3/ul (0.83-4.51); Lymphocyte % 9.2 % (19-41); Mean Corp Hgb Conc 31.8 g/dL (32-36); Mean Corpuscular Hgb 28.1 pg (27.0-32.0); Mean Corpuscular Volume 88.4 fL (81-99); Mean Platelet Vol. 12.2 fl (6.2-12.0); Monocyte# 1.32 X10^3/uL; Monocyte% 8.8 % (0-10); NRBC Flagged by Analyzer 0 % (0-5); Neutrophil # 11.59 X10^3/uL (2.7-7.7); Neutrophil % 77.6 % (47-70); Platelet Count 321 K/mm3 (150-450); RBC Distribution Width CV 13.3 % (11.6-14.6); RBC Distribution Width SD 42.8 fl (35.1-43.9)
[2023-04-26 06:57] LABS: Anion Gap 6 (5-15); BUN 13 mg/dL (7-18); BUN/Creat Ratio 12.3 RATIO (10-20); Calcium,Total 8.8 mg/dL (8.5-10.1); Chloride 111 mmol/L (98-107); Creatinine, Serum 1.06 mg/dL (0.55-1.02); EST Glomerular Filtration Rate 57 mL/min (>60); Est Glom Filt Rate - Afr Amer 69 mL/min (>60); Estimated Creatinine Clearance 52.39 ml/min; Glucose 110 mg/dL (74-106); Potassium 3.5 mmol/L (3.5-5.1); Sodium Level 141 mmol/L (136-145)
[2023-04-26] MEDS: DiphenhydrAMINE 25 MG Capsule PO ×2 (08:04→19:24)
--- NOTE | 2023-04-26 09:36 | PCM.TXEXTCAR ---
Diet Diet Order/Speech Therapy: 04/19/23 17:34 Diet: Cardiac - Heart Healthy Is pt able to select menu?: Yes Routine Orders/Code Status Code Status: DNRCC-A (no intubation) Wound(s) LEFT HIP, DISTAL: Wound Type: Surgical Incision LEFT HIP, PROXIMAL: Wound Type: Surgical Incision Therapies Weight Bearing: Weight bearing as tolerated Physical Therapy: Eval and Treat Occupational Therapy: Eval and Treat Problem/Diagnosis (1) Closed intertrochanteric fracture of left hip: Status: Acute Code(s): S72.142A - Displaced intertrochanteric fracture of left femur, initial encounter for closed fracture (2) Accelerated hypertension: Status: Acute Code(s): I10 - Essential (primary) hypertension (3) ANAND (acute kidney injury): Status: Resolved Code(s): N17.9 - Acute kidney failure, unspecified (4) Hypokalemia: Status: Acute Code(s): E87.6 - Hypokalemia Allergies/Procedures Done in Hospital Allergies Penicillins Allergy (Verified 04/17/23 21:26) Hives Procedures: - (Cephalic medullary fixation left hip fracture) Type of Care/Length of Stay Estimated LOS: Convalescent Care Less Than 30 days Type of Care Needed: Skilled Rehab Potential: Good Prognosis: Good Additional Orders/Day of Discharge H&P will serve as current which was dated: 04/18/23 Day of Discharge: 04/26/23 Dietary and Speech Recommendations Dietitian Recommendations/Changes: continue cardiac diet as tolerated Discharge Plan Admission Admit Date/Time: 04/18/23 01:23 Primary Reason for Your Visit: left hip fracture Attending Provider: Rad Baker Primary Care Provider: Care Physician,No Primary Consulting Providers: Hakeem Velez; Hakeem Bolton; Erik Pineda; Roger Alves; Jeison Lamas Discharge Orders/Prescriptions Prescriptions: New acetaminophen 500 mg Tablet 1,000 mg PO Q8 Qty: 0 0RF amlodipine 10 mg Tablet 10 mg PO DAILY Qty: 0 0RF calcium carbonate 200 mg calcium (500 mg) Tablet,Chewable 500 mg PO TIDCM Qty: 0 0RF cholecalciferol (vitamin D3) 25 mcg (1,000 unit) Tablet 25 mcg PO DAILY Qty: 0 0RF hydralazine 50 mg Tablet 50 mg PO TID Qty: 0 0RF lisinopril 10 mg Tablet 10 mg PO DAILY Qty: 0 0RF menthol-zinc oxide [Calmoseptine] 0.44-20.6 % Ointment 1 applic topical 4X/DAY Qty: 0 0RF Protocol: *Topical Application Instructions APPLICATION INSTRUCTIONS: apply to nadya area/buttocks polyethylene glycol 3350 17 gram Powder In Packet 17 g PO BID Qty: 1 0RF sennosides-docusate sodium [Stool Softener-Stimulant Laxat] 8.6-50 mg Tablet 2 tab PO BID Qty: 0 0RF diphenhydramine HCl [Banophen] 25 mg Capsule 25 mg PO Q6H PRN PRN (Reason: Itching) Qty: 0 0RF nicotine 21 mg/24 hr Patch 24 Hour 21 mg transdermal DAILY Qty: 0 0RF oxycodone 5 mg Tablet 15 mg PO Q4H PRN PRN (Reason: Pain Score 6-10) 2 Days Qty: 10 0RF enoxaparin 40 mg/0.4 mL Syringe 40 mg subcut DAILY Qty: 0 0RF Continued aspirin 81 mg tablet,chewable 81 mg PO DAILY Patient Comments: TAKE 1 TABLET BY MOUTH EVERY DAY multivitamin Capsule 1 cap PO DAILY atorvastatin 40 mg Tablet 80 mg PO QHS Qty: 0 0RF nicotine 21 mg/24 hr patch 24 hour 21 mg transdermal DAILY 30 Days Qty: 30 0RF Discontinued polyethylene glycol 3350 17 gram powder in packet 17 g PO DAILY sennosides-docusate sodium [Stool Softener-Stimulant Laxat] 8.6-50 mg Tablet 2 tab PO BID PRN PRN (Reason: Constipation) Qty: 0 0RF Xarelto 2.5 mg tablet 2.5 mg PO BID 30 Days Qty: 60 2RF lisinopril 20 mg tablet 40 mg PO DAILY 30 Days Qty: 0 0RF Patient Comments: TAKE 1 TABLET BY MOUTH EVERY DAY Rx Instructions: Suggested to keep systolic blood pressure 1 50-160 FOR 1 week and then decrease to 130 mg over the next 2 to 4 weeks Referrals / Follow Up: Care Physician,No Primary [Primary Care Provider] - Hakeem Velez DO [Med Staff - Active Staff] - See Referral Note (in two weeks) Disposition Disposition (needs filled in before D/C Order can be placed): Care Home Facility (1) Closed intertrochanteric fracture of left hip Qualifiers: Encounter type: initial encounter Fracture alignment: displaced Qualified Code(s): S72.142A - Displaced intertrochanteric fracture of left femur, initial encounter for closed fracture
[2023-04-26] MEDS: Calcium Carbonate 500 MG Tablet PO ×3 (09:43→17:15)
[2023-04-26] MEDS: Polyethylene Glycol 3350 17 GM PACKET PO ×2 (09:44→22:19)
[2023-04-26] MEDS: Cholecalciferol (VIT D3) 25 MCG TABLET (1,000 UNITS) PO (09:44)
[2023-04-26] MEDS: Enoxaparin 40 MG/0.4 ML Syringe SC (09:44)
[2023-04-26] MEDS: Lisinopril 10 MG Tablet PO (09:45)
[2023-04-26] MEDS: amLODIPine 10 MG Tablet PO (09:45)
[2023-04-26] MEDS: Senna/Docusate Sodium 1 Tablet 2 TABLET PO ×2 (09:45→22:19)
--- NOTE | 2023-04-26 10:40 | CASEMGMT ---
Social Work As per rowan Waggoner/suzy supply planner, insurance will not give authorization until we have the hospital exemption completed. SW completed Hospital Exemption in [place], Rosaline will notify SNF. BELINDA Kelley
--- NOTE | 2023-04-26 19:26 | PCM.PN.HOSP ---
Reason for Visit Reason for Visit: Diagnoses Hypokalemia (04/18/23) Essential (primary) hypertension (04/18/23) Hemiplegia and hemiparesis following cerebral infarction affecting left non-dominant side (04/18/23) Acute kidney failure, unspecified (04/18/23) Other symptoms and signs involving the musculoskeletal system (04/18/23) Displaced intertrochanteric fracture of left femur, initial encounter for closed fracture (04/18/23) Subjective Subjective That shePatient was seen and examined today, I asked her if she felt needed to go to an extended care facility for rehab services and she told me yes patient is still having quite a bit of knee pain on the left side. Objective Data Objective Data Vital Signs: Vital Signs Temp Pulse Resp BP Pulse Ox O2 Del Method O2 Flow Rate 97.8 F 96 16 98/57 L 95 Room Air 2 04/26/23 19:13 04/26/23 19:13 04/26/23 19:13 04/26/23 19:13 04/26/23 19:13 04/26/23 19:13 04/19/23 18:52 Oxygen Flow Rate (L/min) 2 Oxygen Delivery Method Room Air Weight: 58.5 kg Body Mass Index (BMI) 22.1 Intake & Output: Intake and Output for Last 24 Hours 04/25/23 04/25/23 04/26/23 00:59 23:59 23:59 Intake Total 720 / 720 Output Total 351 / 351 Balance 369 / 369 Lab / Micro Data 04/26/23 05:50 04/26/23 05:50 Labs: Laboratory Results - last 24 hr 04/26/23 05:50: WBC 15.0 H, RBC 3.70 L, Hgb 10.4 L, Hct 32.7 L, MCV 88.4, MCH 28.1, MCHC 31.8 L, RDW Std Deviation 42.8, RDW Coeff of Jovani 13.3, Plt Count 321, MPV 12.2 H, Immature Gran % (Auto) 0.600, Neut % (Auto) 77.6 H, Lymph % (Auto) 9.2 L, [place] % (Auto) 8.8, Eos % (Auto) 3.3, Baso % (Auto) 0.5, Absolute Neuts (auto) 11.6 H, Absolute Lymphs (auto) 1.37, Nucleated RBC % 0, Sodium 141, Potassium 3.5, Chloride 111 H, Carbon Dioxide 24.0, Anion Gap 6, BUN 13, Creatinine 1.06 H, Estim Creat Clear Calc 52.39, Est GFR (MDRD) Af Amer 69, Est GFR (MDRD) Non-Af 57 L, BUN/Creatinine Ratio 12.3, Glucose 110 H, Calcium 8.8 Rhythm Strip Rhythm Strip: Sinus Rhythm Rate: 65 Ectopy: None Physical Exam Const alert, oriented x3, no apparent distress and healthy appearing General Appearance: cooperative, well kempt and well developed Orientation / Consciousness: awake, oriented to person, oriented to place and oriented to time HEENT normocephalic and moist oral mucous membranes Eyes PERRL, EOMs intact bilaterally and conjunctivae normal Neck supple, no JVD, thyroid normal and no carotid bruits General: trachea midline Resp normal respiratory effort, no retractions, no use of accessory muscles and clear to auscultation bilaterally Auscultation: Negative for rales, rhonchi or wheezes Cardio regular rate, regular rhythm, S1 normal heart sound, S2 normal heart sound, no murmurs, no rub and no gallops GI normal to inspection, nondistended, normoactive bowel sounds, soft to palpation, non-tender and non-distended Extremity no clubbing, cyanosis or edema Skin no rashes or lesions noted General Skin Exam: no breakdown Neuro oriented x3, CN's II-XII intact bilaterally and no sensory deficits noted Sensorium / Orientation: awake and alert Speech: speech normal Psych affect normal Assessment & Plan Assessment/Plan (1) Closed intertrochanteric fracture of left hip: QUALIFIERS: Encounter type: initial encounter Fracture alignment: displaced Qualified Code(s): S72.142A - Displaced intertrochanteric fracture of left femur, initial encounter for closed fracture PLAN: Plan 1. Intertrochanteric fracture of the left hip-status post cephalic medullary fixation 04/19/2023-PT and OT will continue, she will need placement in a intermediate facility for short-term rehab services #2 essential hypertension-patient will remain on her current medications #3 acute kidney injury-resolved at this time, labs will be monitored as needed #4 hypokalemia-patient received potassium supplementation, her hypokalemia is resolved at this time, monitor as needed with labs #5 cerebrovascular disease-patient states that she was on a baby aspirin at home but she was not taking atorvastatin because she did not have a prescription, I will place her back on these medications #6 left-sided hemiparesis-complicates care, medical course, recovery, and prognosis, continue PT and OT #7 noncompliance with outpatient medications-complicates care, medical course, recovery, and prognosis Total clinical time spent by myself addressing the patient's medical issues, reviewing all her data, and collaborating with patient's care team: 25-minutes Charges/Coding Visit Charges Inpatient E&M: 55455 Subs Hosp L1
[2023-04-26] MEDS: Atorvastatin Calcium 20 MG Tablet PO (22:54)
[2023-04-27] MEDS: Haloperidol Lactate 5 MG/ML Vial 2 MG IM (03:12)
[2023-04-27 03:41] VITALS: BP 126/98; PULSE 87; RESP 20; TEMP 36.6; O2SAT 95
[2023-04-27 03:42] LABS: Bedside Glucose 102 mg/dL (74-106)
--- NOTE | 2023-04-27 03:50 | NURSING ---
at 0230 pt awakened paranoid, disoriented, scared. very upset. requesting that staff call 911. multiple rns attempted to reorient pt w/no success. pt requested presence of HRO. ofcr Laura came to pt's room for reassurance. she requested a different officer. unable to be calmed down and reoriented. this rn talked to dr cook who ordered haldol. haldol was administered and charted on aug. after med administration pt was rolled around unit in wheelchair for reorientation, but continues to insist she is not at the hospital. after returning to her room all linens were changed, she was given a bed bath and her favorite tv program was put on the tv. this rn remain w/pt for comfort.
[2023-04-27 06:20] VITALS: BP 168/62; PULSE 71
[2023-04-27] MEDS: hydrALAZINE 50 MG Tablet PO ×2 (06:20→13:41)
[2023-04-27] MEDS: Acetaminophen 500 MG Tablet 1000 MG PO (06:21)
[2023-04-27 07:40] VITALS: O2SAT 92
[2023-04-27] MEDS: oxyCODONE 5 MG Tablet 15 MG PO (08:53)
[2023-04-27] MEDS: Calcium Carbonate 500 MG Tablet PO ×2 (08:53→13:41)
[2023-04-27] MEDS: Enoxaparin 40 MG/0.4 ML Syringe SC (08:54)
[2023-04-27] MEDS: Cholecalciferol (VIT D3) 25 MCG TABLET (1,000 UNITS) PO (08:55)
[2023-04-27] MEDS: Lisinopril 10 MG Tablet PO (08:55)
[2023-04-27] MEDS: Senna/Docusate Sodium 1 Tablet 2 TABLET PO (08:55)
[2023-04-27] MEDS: amLODIPine 10 MG Tablet PO (08:55)
[2023-04-27] MEDS: Aspirin E.C. 81 MG Tablet PO (08:57)
[2023-04-27 09:30] VITALS: BP 124/58; PULSE 60; RESP 14; TEMP 36.8; O2SAT 99
--- NOTE | 2023-04-27 10:19 | CASEMGMT ---
Social Work SW let pt know that precert is still pending for pt to [facility]. SW explained that we are hopeful to get the precert and get her to rehab today. Pt states understanding. SW did call pt's daughter Yashira and let her know the same information. Yashira in agreement w/plan and is okay with this. She is okay w/SW leaving message for her when the pt is ready to go, to let her know pt is being discharged. BELINDA Kelley
--- NOTE | 2023-04-27 10:26 | CASEMGMT ---
Social Work SW informed admitting RN she does not have LW/POA and declined further information. BELINDA Kelley
--- NOTE | 2023-04-27 13:35 | CASEMGMT ---
Discharge Planning Discharge orders, signed med list and transport time sent to [facility] via [facility]. [facility] will transport patient by wheelchair at 3p. Nursing, SW, and patient updated. A vm was left for her daughter. Rosaline Burns, Discharge Planning Asst.
[2023-04-27 13:41] VITALS: PULSE 68
[2023-04-27 13:45] VITALS: BP 129/66; PULSE 69; RESP 14; TEMP 36.7; O2SAT 97
--- NOTE | 2023-04-27 14:45 | CASEMGMT ---
Social Work - Discharge note Patient being discharged today to [facility]. Prior authorization received from insurance. Patient discharging skilled level of care. 7000 completed on 04.26.23 at insistence of insurance to approve authorization. Discharge business planning director arranged transport and notification to necessary parties of discharge today. No other services requested or indicated. -GEOVANNA Bello
--- NOTE | 2023-04-27 15:41 | PHA.DC.MC.R ---
Pharmacy [facility] has performed discharge medication reconciliation and counseling for this patient. The patient's discharge medication list was reviewed for discrepancies and discrepancies were resolved. The patient was counseled on the following discharge medications and changes in medications for homegoing were reviewed. The Reason for Use, instructions for use, and potential side effects were reviewed for all new medications. The patient's questions regarding all of their medications were answered. 1. acetaminophen 1000 mg PO Q8H 2. calcium carbonate 500mg PO TID with meals 3. vitamin D 1000 units PO daily 4. enoxaparin 40 mg SQ daily 5. hydralazine 50 mg PO TID 6. lisinopril 10 mg PO daily 7. oxycodone 15 mg PO Q4H PRN pain The patient was able to verbally demonstrate an understanding of their discharge medications. Medications at Discharge Home Medications aspirin 81 mg chewable tablet 81 mg PO DAILY heart health 07/02/22 multivitamin 1 cap PO DAILY supplement 09/24/22 atorvastatin 40 mg tablet 80 mg (2 x 40 mg) PO QHS CHOLESTEROL #0 tabs 10/20/22 nicotine 21 mg/24 hr daily transdermal patch 21 mg transdermal DAILY Check with primary doctor 30 days #30 ea 10/20/22 acetaminophen 500 mg tablet 1,000 mg (2 x 500 mg) PO Q8 #0 tabs 04/26/23 amlodipine 10 mg tablet 10 mg PO DAILY #0 tabs 04/26/23 calcium carbonate 200 mg calcium (500 mg) chewable tablet 500 mg (2.5 x 200 mg calcium (500 mg)) PO TIDCM #0 tabs 04/26/23 cholecalciferol (vitamin D3) 25 mcg (1,000 unit) tablet 25 mcg PO DAILY #0 tabs 04/26/23 diphenhydramine HCl 25 mg capsule (Banophen) 25 mg PO Q6H PRN PRN Itching #0 caps 04/26/23 enoxaparin 40 mg/0.4 mL subcutaneous syringe 40 mg (0.4 mL) subcut DAILY #0 mL 04/26/23 hydralazine 50 mg tablet 50 mg PO TID #0 tabs 04/26/23 lisinopril 10 mg tablet 10 mg PO DAILY #0 tabs 04/26/23 menthol 0.44 %-zinc oxide 20.6 % topical ointment (Calmoseptine) 1 applic topical 4X/DAY #0 grams 04/26/23 nicotine 21 mg/24 hr daily transdermal patch 21 mg transdermal DAILY #0 ea 04/26/23 oxycodone 5 mg tablet 15 mg (3 x 5 mg) PO Q4H PRN PRN Pain Score 6-10 2 days #10 tabs 04/26/23 polyethylene glycol 3350 17 gram oral powder packet 17 g PO BID #1 ea 04/26/23 sennosides 8.6 mg-docusate sodium 50 mg tablet (Stool Softener-Stimulant Laxative) 2 tab PO BID #0 tabs 04/26/23
--- NOTE | 2023-04-27 15:48 | NURSING ---
report called to Jamal FERNANDEZ at [facility]
--- NOTE | 2023-05-10 07:34 | DS.PCM_ITS ---
Providers Date of Admission: 04/18/23 Date of Discharge: 04/27/23 Primary Care Physician: Lisbet Primary Care Phys Consultations 04/18/23 02:33 Consult: Orthopedics Routine Consulting Provider: Hakeem Velez Reason for Consult: Left hip fracture EMERGENT Consult: No MD Notified: Yes Date Notified: 04/18/23 Time Notified: 01:34 Method of Notification: ED Physician Initiated Reason For Visit: L HIP INTERTROCHANTERIC FRACTURE Diagnosis Discharge Diagnosis (1) Closed intertrochanteric fracture of left hip: Status: Resolved Code(s): S72.142A - Displaced intertrochanteric fracture of left femur, initial encounter for closed fracture Qualifiers: Encounter type: initial encounter Fracture alignment: displaced Qualified Code(s): S72.142A - Displaced intertrochanteric fracture of left femur, initial encounter for closed fracture Plan 1. Intertrochanteric fracture of the left hip-status post cephalic medullary fixation 04/19/2023-PT and OT will continue, she will need placement in a care home facility for short-term rehab services #2 essential hypertension-patient will remain on her current medications #3 acute kidney injury-resolved at this time, labs will be monitored as needed #4 hypokalemia-patient received potassium supplementation, her hypokalemia is resolved at this time, monitor as needed with labs #5 cerebrovascular disease-patient states that she was on a baby aspirin at home but she was not taking atorvastatin because she did not have a prescription, I will place her back on these medications #6 left-sided hemiparesis-complicates care, medical course, recovery, and prognosis, continue PT and OT #7 noncompliance with outpatient medications-complicates care, medical course, recovery, and prognosis Total clinical time spent by myself addressing the patient's medical issues, re viewing all her data, and collaborating with patient's care team: 25-minutes Medications at Discharge Home Medications aspirin 81 mg chewable tablet 81 mg PO DAILY heart health 07/02/22 multivitamin 1 cap PO DAILY supplement 09/24/22 atorvastatin 40 mg tablet 80 mg (2 x 40 mg) PO QHS CHOLESTEROL #0 tabs 10/20/22 nicotine 21 mg/24 hr daily transdermal patch 21 mg transdermal DAILY Check with primary doctor 30 days #30 ea 10/20/22 acetaminophen 500 mg tablet 1,000 mg (2 x 500 mg) PO Q8 #0 tabs 04/26/23 amlodipine 10 mg tablet 10 mg PO DAILY #0 tabs 04/26/23 calcium carbonate 200 mg calcium (500 mg) chewable tablet 500 mg (2.5 x 200 mg calcium (500 mg)) PO TIDCM #0 tabs 04/26/23 cholecalciferol (vitamin D3) 25 mcg (1,000 unit) tablet 25 mcg PO DAILY #0 tabs 04/26/23 diphenhydramine HCl 25 mg capsule (Banophen) 25 mg PO Q6H PRN PRN Itching #0 caps 04/26/23 enoxaparin 40 mg/0.4 mL subcutaneous syringe 40 mg (0.4 mL) subcut DAILY #0 mL 04/26/23 hydralazine 50 mg tablet 50 mg PO TID #0 tabs 04/26/23 lisinopril 10 mg tablet 10 mg PO DAILY #0 tabs 04/26/23 menthol 0.44 %-zinc oxide 20.6 % topical ointment (Calmoseptine) 1 applic topical 4X/DAY #0 grams 04/26/23 nicotine 21 mg/24 hr daily transdermal patch 21 mg transdermal DAILY #0 ea 04/26/23 oxycodone 5 mg tablet 15 mg (3 x 5 mg) PO Q4H PRN PRN Pain Score 6-10 2 days #10 tabs 04/26/23 polyethylene glycol 3350 17 gram oral powder packet 17 g PO BID #1 ea 04/26/23 sennosides 8.6 mg-docusate sodium 50 mg tablet (Stool Softener-Stimulant Laxative) 2 tab PO BID #0 tabs 04/26/23 Hospital Course Operations - (Cephalo- medullary fixation left hip) Procedures None Summary of Care Provided Minutes Spent on Discharge: 32 Hospital Course: This 53-year-old white female was seen in the emergency room at [facility] after she sustained a fall at home while attempting to ambulate, she complained of pain in her left thigh and her left ankle, patient was unable to move her left leg due to pain and she was unable to bear weight on it. Work-up in the emergency room included x-rays which showed an angulated displaced intertrochanteric hip fracture of the left hip, patient's white blood cell count was elevated at 23.4, chest x-ray was unremarkable and urinalysis was unremarkable. Potassium was slightly low at 3.2. Patient was admitted to PCU, she was seen in consultation by orthopedic surgery, she underwent a cephalo- medullary fixation of her left hip fracture, there were no complications due to the surgery. Postop she was seen by PT and OT, patient felt that she needed to go into an extended care facility for inpatient rehab services and arrangements were made for this. On 04/27/2023, patient was seen and examined: On examination she appeared in good health and spirits, she does not appear to be in any distress. Vital signs as documented. Skin warm and dry and without overt rashes. Neck without JVD, thyroid appears normal, trachea is midline, neck is supple. Lungs clear, normal air movement was noted. Heart exam notable for regular rhythm, normal sounds and absence of murmurs, rubs or gallops. Abdomen unremarkable and without evidence of organomegaly, masses, or abdominal aortic enlargement, bowel sounds are present in all 4 quadrants, no abdominal tenderness was noted. Extremities nonedematous, no cyanosis was noted, no clubbing was noted. Neuro: Cranial nerves II through XII are grossly intact, patient exhibits some left-sided weakness, sensation to light touch and pinprick is intact. Psych: Patient is alert and oriented x3, she does not appear anxious or depressed, she does not appear agitated. Patient was discharged to an extended care facility in stable condition on 04/27/2023. Weight / BMI Weight Weight: 58.5 kg Body Mass Index (BMI) 22.1 ABG / Lab / Microbiology Data 04/26/23 05:50 04/26/23 05:50 Meaningful Use Info Meaningful Use Diagnoses (Choose all that apply): None applicable Discharge Plan Admission Admit Date/Time: 04/18/23 01:23 Primary Reason for Your Visit: left hip fracture Attending Provider: Rad Baker Primary Care Provider: Care Physician,No Primary Consulting Providers: Hakeem Velez; Hakeem Bolton; Erik Pineda; Roger Alves; Jeison Lamas Discharge Orders/Prescriptions Prescriptions: New acetaminophen 500 mg Tablet 1,000 mg PO Q8 Qty: 0 0RF amlodipine 10 mg Tablet 10 mg PO DAILY Qty: 0 0RF calcium carbonate 200 mg calcium (500 mg) Tablet,Chewable 500 mg PO TIDCM Qty: 0 0RF cholecalciferol (vitamin D3) 25 mcg (1,000 unit) Tablet 25 mcg PO DAILY Qty: 0 0RF hydralazine 50 mg Tablet 50 mg PO TID Qty: 0 0RF lisinopril 10 mg Tablet 10 mg PO DAILY Qty: 0 0RF menthol-zinc oxide [Calmoseptine] 0.44-20.6 % Ointment 1 applic topical 4X/DAY Qty: 0 0RF Protocol: *Topical Application Instructions APPLICATION INSTRUCTIONS: apply to nadya area/buttocks polyethylene glycol 3350 17 gram Powder In Packet 17 g PO BID Qty: 1 0RF sennosides-docusate sodium [Stool Softener-Stimulant Laxat] 8.6-50 mg Tablet 2 tab PO BID Qty: 0 0RF diphenhydramine HCl [Banophen] 25 mg Capsule 25 mg PO Q6H PRN PRN (Reason: Itching) Qty: 0 0RF nicotine 21 mg/24 hr Patch 24 Hour 21 mg transdermal DAILY Qty: 0 0RF oxycodone 5 mg Tablet 15 mg PO Q4H PRN PRN (Reason: Pain Score 6-10) 2 Days Qty: 10 0RF enoxaparin 40 mg/0.4 mL Syringe 40 mg subcut DAILY Qty: 0 0RF Continued aspirin 81 mg tablet,chewable 81 mg PO DAILY Patient Comments: TAKE 1 TABLET BY MOUTH EVERY DAY multivitamin Capsule 1 cap PO DAILY atorvastatin 40 mg Tablet 80 mg PO QHS Qty: 0 0RF nicotine 21 mg/24 hr patch 24 hour 21 mg transdermal DAILY 30 Days Qty: 30 0RF Discontinued polyethylene glycol 3350 17 gram powder in packet 17 g PO DAILY sennosides-docusate sodium [Stool Softener-Stimulant Laxat] 8.6-50 mg Tablet 2 tab PO BID PRN PRN (Reason: Constipation) Qty: 0 0RF Xarelto 2.5 mg tablet 2.5 mg PO BID 30 Days Qty: 60 2RF lisinopril 20 mg tablet 40 mg PO DAILY 30 Days Qty: 0 0RF Patient Comments: TAKE 1 TABLET BY MOUTH EVERY DAY Rx Instructions: Suggested to keep systolic blood pressure 1 50-160 FOR 1 week and then decrease to 130 mg over the next 2 to 4 weeks Referrals / Follow Up: Hakeem Velez DO [Med Staff - Active Staff] - See Referral Note (in two weeks) Care Physician,No Primary [Primary Care Provider] - Disposition Disposition (needs filled in before D/C Order can be placed): Group Home Facility Charges/Coding Visit Charges Inpatient E&M: 33992 Disch Hosp >30min
== END 2023-04-27 15:48 | disposition skilled nursing facility (03) | DRG 308 ==
LOC: ED 04-18 01:00 → PCU 04-18 03:46
PROVIDERS: Anesthesiology; Family Medicine; Internal Medicine; Orthopaedic Surgery; Admitting Provider Hospitalist; Emergency Provider Emergency Medicine; Visit Provider Internal Medicine
PROC: 0QS706Z Reposition Left Upper Femur with Intramedullary Internal Fixation Device, Open Approach (ICD-10-PCS; principal; 2023-04-19 09:00)
DX: S72.142A Displaced intertrochanteric fracture of left femur, initial encounter for closed fracture (principal); I69.354 Hemiplegia and hemiparesis following cerebral infarction affecting left non-dominant side; N17.9 Acute kidney failure, unspecified; I16.0 Hypertensive urgency; F17.210 Nicotine dependence, cigarettes, uncomplicated; I10 Essential (primary) hypertension; E87.6 Hypokalemia; W18.09XA Striking against other object with subsequent fall, initial encounter; K59.09 Other constipation; Z66 Do not resuscitate; Z91.148 Patient's other noncompliance with medication regimen for other reason; Z76.5 Malingerer [conscious simulation]; Z79.01 Long term (current) use of anticoagulants; Z79.82 Long term (current) use of aspirin; Z79.899 Other long term (current) drug therapy
CPT/HCPCS: 36415; 51702; 71045; 73502; 73552; 73610; 76000; 80048; 80053; 80307; 81001; 82306; 82962; 83735; 85025; 86850; 86900; 86901; 93005; 97110; 97116; 97162; 97166; 97530; 97535; 99285; C1776; J7030; A4216; J2405; J3490

== ENCOUNTER → 2023-04-29 | Outpatient (REF) | payer MEDICAID, SELFPAY ==
[2023-04-29 08:14] LABS: Hematocrit 37.5 % (37-47); Hemoglobin 11.7 g/dL (12.0-15.0); Mean Corp Hgb Conc 31.2 g/dL (32-36); Mean Corpuscular Hgb 28.1 pg (27.0-32.0); Mean Corpuscular Volume 89.9 fL (81-99); Mean Platelet Vol. 12.3 fl (6.2-12.0); Platelet Count 391 K/mm3 (150-450); RBC Distribution Width CV 13.9 % (11.6-14.6); RBC Distribution Width SD 45.1 fl (35.1-43.9); Red Blood Count 4.17 M/mm3 (4.2-5.4); White Blood Count 13.3 K/mm3 (4.4-11.0)
[2023-04-29 08:33] LABS: Vitamin B12 653 pg/mL (211-911); Vitamin D,25 Hydroxy 42.4 ng/mL
[2023-04-29 08:38] LABS: ALB/GLOB Ratio 0.7 RATIO (0.9-2.4); AST(SGOT) 11 U/L (15-37); Alanine Aminotransfer ALT/SGPT 15 U/L (13-56); Albumin, Serum 2.9 g/dL (3.2-5.0); Alkaline Phosphatase 39 U/L (45-117); Anion Gap 6 (5-15); BUN 15 mg/dL (7-18); BUN/Creat Ratio 11.7 RATIO (10-20); Calcium,Total 9.2 mg/dL (8.5-10.1); Chloride 109 mmol/L (98-107); Cholesterol 140 mg/dL (200); Creatinine, Serum 1.28 mg/dL (0.55-1.02); EST Glomerular Filtration Rate 46 mL/min (>60); Est Glom Filt Rate - Afr Amer 56 mL/min (>60); Globulin 4.1 g/dL (2.2-4.2); Glucose 98 mg/dL (74-106); High Density Lipoprotein 42 mg/dL; Magnesium 2.4 mg/dL (1.6-2.6); Potassium 3.7 mmol/L (3.5-5.1); Sodium Level 141 mmol/L (136-145); Thyroid Stim Hormone (TSH) 1.85 uIU/mL (0.358-3.74); Triglycerides 124 mg/dL; Very Low Density Lipoprotein 25 mg/dL (5-40)
== END | disposition home or self-care (01) ==
LOC: OLS.SW 05:00
PROVIDERS: Visit Provider Internal Medicine
DX: Z02.2 Encounter for examination for admission to residential institution (principal)
CPT/HCPCS: 36415; 80053; 80061; 82306; 82607; 83735; 84443; 85027

== ENCOUNTER → 2023-05-03 | Outpatient (REF) | payer MEDICAID, SELFPAY ==
[2023-05-03 08:45] LABS: Absolute Lymphocyte Count 2.56 X10^3/uL (0.83-4.51); Absolute Neutrophil Count 8.4 X10^3/uL (2.0-7.7); Basophil# 0.12 X10^3/uL; Eosinophil# 0.46 X10^3/uL; Eosinophils% 3.7 % (0-5); Hematocrit 35.5 % (37-47); Lymphocyte # 2.56 X10^3/ul (0.83-4.51); Lymphocyte % 20.5 % (19-41); Mean Corpuscular Hgb 27.7 pg (27.0-32.0); Mean Corpuscular Volume 89.4 fL (81-99); Mean Platelet Vol. 12.3 fl (6.2-12.0); Monocyte# 0.87 X10^3/uL; NRBC Flagged by Analyzer 0 % (0-5); Neutrophil # 8.43 X10^3/uL (2.7-7.7); Neutrophil % 67.5 % (47-70); Platelet Count 470 K/mm3 (150-450); RBC Distribution Width CV 13.6 % (11.6-14.6); RBC Distribution Width SD 44.6 fl (35.1-43.9); Red Blood Count 3.97 M/mm3 (4.2-5.4); White Blood Count 12.5 K/mm3 (4.4-11.0)
[2023-05-03 08:57] LABS: Anion Gap 7 (5-15); BUN 28 mg/dL (7-18); BUN/Creat Ratio 20.3 RATIO (10-20); Calcium,Total 9.2 mg/dL (8.5-10.1); Chloride 108 mmol/L (98-107); Creatinine, Serum 1.38 mg/dL (0.55-1.02); EST Glomerular Filtration Rate 42 mL/min (>60); Est Glom Filt Rate - Afr Amer 51 mL/min (>60); Glucose 88 mg/dL (74-106); Magnesium 2.3 mg/dL (1.6-2.6); Sodium Level 140 mmol/L (136-145)
== END | disposition home or self-care (01) ==
LOC: OLS.SW 05:00
PROVIDERS: Visit Provider Family Medicine
DX: I10 Essential (primary) hypertension (principal); N17.9 Acute kidney failure, unspecified; E87.6 Hypokalemia
CPT/HCPCS: 36415; 80048; 83735; 85025

== ENCOUNTER → 2023-05-07 | Outpatient (REF) | payer MEDICAID, SELFPAY ==
[2023-05-07 10:22] LABS: Bacteria 0 SEEN /hpf (None Seen); Mucous, Urine 0 SEEN /hpf (<or=2+); Red Blood Cells-Urine 0 SEEN /hpf (0-5); Squamous Epithelial Cells - UA 0 SEEN /hpf (5-10)
[2023-05-07 10:26] LABS: Color, Urine Yellow (Yellow); Glucose, Dipstick Normal (Normal); Ketone-Dipstick Negative (Negative); Leukocyte Esterase-Dipstick 25 /ul (Negative); Nitrite-Dipstick Negative (Negative); Occult Blood-Urine Negative /ul (Negative); Protein-Dipstick Negative (Negative); Specific Gravity, Urine 1.005 (1.002-1.030); Urine Bilirubin Dipstick Negative (Negative); Urine Clarity Clear (Clear); Urine Urobilinogen Normal (Normal)
[2023-05-07 10:49] LABS: White Blood Cells 0-5 SEEN /hpf (0-5)
== END | disposition home or self-care (01) ==
LOC: OLS.SW 09:30
PROVIDERS: Visit Provider Internal Medicine
DX: N17.9 Acute kidney failure, unspecified (principal); I10 Essential (primary) hypertension
CPT/HCPCS: 81001; 87077; 87086; 87088; 87186

== ENCOUNTER → 2023-05-10 | Outpatient (REF) | payer MEDICAID, SELFPAY ==
[2023-05-10 08:57] LABS: Absolute Neutrophil Count 11.8 X10^3/uL (2.0-7.7); Basophil% 0.6 % (0-1); Eosinophil# 0.58 X10^3/uL; Eosinophils% 3.7 % (0-5); Hematocrit 37.9 % (37-47); Hemoglobin 12.1 g/dL (12.0-15.0); Lymphocyte % 13.5 % (19-41); Mean Corp Hgb Conc 31.9 g/dL (32-36); Mean Corpuscular Volume 87.7 fL (81-99); Mean Platelet Vol. 12.1 fl (6.2-12.0); Monocyte# 0.97 X10^3/uL; Monocyte% 6.2 % (0-10); NRBC Flagged by Analyzer 0 % (0-5); Neutrophil # 11.76 X10^3/uL (2.7-7.7); Neutrophil % 75.5 % (47-70); Platelet Count 517 K/mm3 (150-450); RBC Distribution Width CV 13.3 % (11.6-14.6); RBC Distribution Width SD 43.1 fl (35.1-43.9); Red Blood Count 4.32 M/mm3 (4.2-5.4); White Blood Count 15.6 K/mm3 (4.4-11.0)
[2023-05-10 09:06] LABS: Anion Gap 9 (5-15); BUN 23 mg/dL (7-18); BUN/Creat Ratio 18.9 RATIO (10-20); Calcium,Total 9.7 mg/dL (8.5-10.1); Chloride 106 mmol/L (98-107); Creatinine, Serum 1.22 mg/dL (0.55-1.02); EST Glomerular Filtration Rate 49 mL/min (>60); Est Glom Filt Rate - Afr Amer 59 mL/min (>60); Glucose 99 mg/dL (74-106); Magnesium 2.5 mg/dL (1.6-2.6); Potassium 3.9 mmol/L (3.5-5.1); Sodium Level 138 mmol/L (136-145)
== END | disposition home or self-care (01) ==
LOC: OLS.SW 05:00
PROVIDERS: Visit Provider Internal Medicine
DX: E87.6 Hypokalemia (principal); N17.9 Acute kidney failure, unspecified; I69.354 Hemiplegia and hemiparesis following cerebral infarction affecting left non-dominant side; S72.142D Displaced intertrochanteric fracture of left femur, subsequent encounter for closed fracture with routine healing
CPT/HCPCS: 36415; 80048; 83735; 85025

== ENCOUNTER → 2023-05-11 | Outpatient (REF) | payer MEDICAID, SELFPAY ==
[2023-05-11 13:10] LABS: Absolute Lymphocyte Count 1.77 X10^3/uL (0.83-4.51); Absolute Neutrophil Count 11.2 X10^3/uL (2.0-7.7); Basophil# 0.08 X10^3/uL; Basophil% 0.6 % (0-1); Eosinophil# 0.21 X10^3/uL; Eosinophils% 1.5 % (0-5); Hematocrit 34.5 % (37-47); Hemoglobin 11.2 g/dL (12.0-15.0); Lymphocyte # 1.77 X10^3/ul (0.83-4.51); Lymphocyte % 12.3 % (19-41); Mean Corp Hgb Conc 32.5 g/dL (32-36); Mean Corpuscular Hgb 27.9 pg (27.0-32.0); Mean Corpuscular Volume 85.8 fL (81-99); Mean Platelet Vol. 11.6 fl (6.2-12.0); Monocyte# 1.04 X10^3/uL; Monocyte% 7.2 % (0-10); NRBC Flagged by Analyzer 0 % (0-5); Neutrophil # 11.22 X10^3/uL (2.7-7.7); Platelet Count 449 K/mm3 (150-450); RBC Distribution Width CV 13.3 % (11.6-14.6); RBC Distribution Width SD 41.6 fl (35.1-43.9); Red Blood Count 4.02 M/mm3 (4.2-5.4); White Blood Count 14.4 K/mm3 (4.4-11.0)
== END | disposition home or self-care (01) ==
LOC: OLS.SW 12:30
PROVIDERS: Visit Provider Internal Medicine
DX: D72.829 Elevated white blood cell count, unspecified (principal); L02.91 Cutaneous abscess, unspecified
CPT/HCPCS: 36415; 85025

== ENCOUNTER → 2023-05-12 | Outpatient (REF) | payer MEDICAID, SELFPAY ==
[2023-05-12 08:12] LABS: Absolute Lymphocyte Count 2.21 X10^3/uL (0.83-4.51); Absolute Neutrophil Count 7.6 X10^3/uL (2.0-7.7); Basophil# 0.07 X10^3/uL; Basophil% 0.6 % (0-1); Eosinophil# 0.45 X10^3/uL; Eosinophils% 3.9 % (0-5); Hematocrit 33.5 % (37-47); Hemoglobin 10.7 g/dL (12.0-15.0); Lymphocyte # 2.21 X10^3/ul (0.83-4.51); Lymphocyte % 19.1 % (19-41); Mean Corp Hgb Conc 31.9 g/dL (32-36); Mean Corpuscular Hgb 27.9 pg (27.0-32.0); Mean Corpuscular Volume 87.2 fL (81-99); Mean Platelet Vol. 12.1 fl (6.2-12.0); Monocyte# 1.18 X10^3/uL; Monocyte% 10.2 % (0-10); NRBC Flagged by Analyzer 0 % (0-5); Neutrophil % 65.8 % (47-70); Platelet Count 403 K/mm3 (150-450); RBC Distribution Width CV 13.5 % (11.6-14.6); RBC Distribution Width SD 42.6 fl (35.1-43.9); Red Blood Count 3.84 M/mm3 (4.2-5.4); White Blood Count 11.6 K/mm3 (4.4-11.0)
[2023-05-12 08:24] LABS: Anion Gap 4 (5-15); BUN 25 mg/dL (7-18); BUN/Creat Ratio 20.5 RATIO (10-20); Calcium,Total 9.4 mg/dL (8.5-10.1); Chloride 106 mmol/L (98-107); Creatinine, Serum 1.22 mg/dL (0.55-1.02); EST Glomerular Filtration Rate 49 mL/min (>60); Est Glom Filt Rate - Afr Amer 59 mL/min (>60); Glucose 95 mg/dL (74-106); Sodium Level 136 mmol/L (136-145)
== END | disposition home or self-care (01) ==
LOC: OLS.SW 05:00
PROVIDERS: Visit Provider Internal Medicine
DX: I10 Essential (primary) hypertension (principal)
CPT/HCPCS: 36415; 80048; 85025

== ENCOUNTER → 2023-05-14 | Outpatient (REF) | payer MEDICAID, SELFPAY ==
[2023-05-14 06:14] LABS: Absolute Lymphocyte Count 1.84 X10^3/uL (0.83-4.51); Absolute Neutrophil Count 5.5 X10^3/uL (2.0-7.7); Basophil# 0.08 X10^3/uL; Basophil% 0.9 % (0-1); Eosinophil# 0.56 X10^3/uL; Eosinophils% 6.4 % (0-5); Hematocrit 33.6 % (37-47); Hemoglobin 10.8 g/dL (12.0-15.0); Lymphocyte # 1.84 X10^3/ul (0.83-4.51); Mean Corp Hgb Conc 32.1 g/dL (32-36); Mean Corpuscular Hgb 28.1 pg (27.0-32.0); Mean Corpuscular Volume 87.5 fL (81-99); Mean Platelet Vol. 11.9 fl (6.2-12.0); Monocyte% 9.1 % (0-10); NRBC Flagged by Analyzer 0 % (0-5); Neutrophil # 5.45 X10^3/uL (2.7-7.7); Neutrophil % 62.4 % (47-70); Platelet Count 399 K/mm3 (150-450); RBC Distribution Width CV 13.3 % (11.6-14.6); RBC Distribution Width SD 42.8 fl (35.1-43.9); Red Blood Count 3.84 M/mm3 (4.2-5.4); White Blood Count 8.8 K/mm3 (4.4-11.0)
== END | disposition home or self-care (01) ==
LOC: OLS.SW 04:50
PROVIDERS: Referring Provider Internal Medicine; Visit Provider Internal Medicine
DX: E87.6 Hypokalemia (principal); N17.9 Acute kidney failure, unspecified
CPT/HCPCS: 36415; 85025

== ENCOUNTER → 2023-09-08 | Outpatient (REF) | payer MEDICAID, SELFPAY ==
[2023-09-08 08:08] LABS: Absolute Lymphocyte Count 2.46 X10^3/uL (0.83-4.51); Absolute Neutrophil Count 5.9 X10^3/uL (2.0-7.7); Basophil# 0.08 X10^3/uL; Basophil% 0.8 % (0-1); Eosinophil# 0.42 X10^3/uL; Eosinophils% 4.3 % (0-5); Hematocrit 33.2 % (37-47); Hemoglobin 10.7 g/dL (12.0-15.0); Lymphocyte # 2.46 X10^3/ul (0.83-4.51); Lymphocyte % 25.4 % (19-41); Mean Corp Hgb Conc 32.2 g/dL (32-36); Mean Corpuscular Hgb 29.2 pg (27.0-32.0); Mean Corpuscular Volume 90.7 fL (81-99); Mean Platelet Vol. 11.8 fl (6.2-12.0); Monocyte% 8.2 % (0-10); NRBC Flagged by Analyzer 0 % (0-5); Neutrophil # 5.91 X10^3/uL (2.7-7.7); Platelet Count 293 K/mm3 (150-450); RBC Distribution Width CV 11.7 % (11.6-14.6); RBC Distribution Width SD 38.9 fl (35.1-43.9); Red Blood Count 3.66 M/mm3 (4.2-5.4); White Blood Count 9.7 K/mm3 (4.4-11.0)
[2023-09-08 08:34] LABS: Anion Gap 6 (5-15); BUN 28 mg/dL (7-18); BUN/Creat Ratio 23.7 RATIO (10-20); Calcium,Total 9.6 mg/dL (8.5-10.1); Chloride 110 mmol/L (98-107); Creatinine, Serum 1.18 mg/dL (0.55-1.02); EST Glomerular Filtration Rate 51 mL/min (>60); Est Glom Filt Rate - Afr Amer 61 mL/min (>60); Glucose 82 mg/dL (74-106); Magnesium 2.4 mg/dL (1.6-2.6); Potassium 4.1 mmol/L (3.5-5.1); Sodium Level 140 mmol/L (136-145)
== END | disposition home or self-care (01) ==
LOC: OLS.SW 05:00
PROVIDERS: Visit Provider Internal Medicine
DX: N17.9 Acute kidney failure, unspecified (principal)
CPT/HCPCS: 36415; 80048; 83735; 85025

== ENCOUNTER → 2024-01-17 | Outpatient (REF) | payer MEDICAID, SELFPAY ==
[2024-01-17 08:30] LABS: Absolute Lymphocyte Count 2.63 X10^3/uL (0.83-4.51); Absolute Neutrophil Count 4.8 X10^3/uL (2.0-7.7); Basophil# 0.07 X10^3/uL; Basophil% 0.8 % (0-1); Eosinophil# 0.47 X10^3/uL; Eosinophils% 5.3 % (0-5); Hematocrit 36.3 % (37-47); Hemoglobin 11.7 g/dL (12.0-15.0); Lymphocyte # 2.63 X10^3/ul (0.83-4.51); Lymphocyte % 29.8 % (19-41); Mean Corp Hgb Conc 32.2 g/dL (32-36); Mean Corpuscular Hgb 28.8 pg (27.0-32.0); Mean Corpuscular Volume 89.4 fL (81-99); Mean Platelet Vol. 11.9 fl (6.2-12.0); Monocyte% 9.1 % (0-10); NRBC Flagged by Analyzer 0 % (0-5); Neutrophil # 4.83 X10^3/uL (2.7-7.7); Neutrophil % 54.7 % (47-70); Platelet Count 291 K/mm3 (150-450); RBC Distribution Width CV 12.3 % (11.6-14.6); RBC Distribution Width SD 40.1 fl (35.1-43.9); Red Blood Count 4.06 M/mm3 (4.2-5.4); White Blood Count 8.8 K/mm3 (4.4-11.0)
[2024-01-17 09:06] LABS: Anion Gap 6 (5-15); BUN 19 mg/dL (7-18); BUN/Creat Ratio 16.7 RATIO (10-20); Chloride 111 mmol/L (98-107); Cholesterol 99 mg/dL (200); Creatinine, Serum 1.14 mg/dL (0.55-1.02); EST Glomerular Filtration Rate 53 mL/min (>60); Est Glom Filt Rate - Afr Amer 64 mL/min (>60); Glucose 95 mg/dL (74-106); High Density Lipoprotein 43 mg/dL; Magnesium 2.3 mg/dL (1.6-2.6); Sodium Level 140 mmol/L (136-145); Triglycerides 76 mg/dL; Very Low Density Lipoprotein 15 mg/dL (5-40)
== END | disposition home or self-care (01) ==
LOC: OLS.SW 05:00
PROVIDERS: Visit Provider Internal Medicine
DX: I10 Essential (primary) hypertension (principal); E87.6 Hypokalemia; I69.354 Hemiplegia and hemiparesis following cerebral infarction affecting left non-dominant side
CPT/HCPCS: 36415; 80048; 80061; 83735; 85025

== ENCOUNTER → 2024-05-03 | Outpatient (REF) | payer MEDICAID, SELFPAY ==
[2024-05-03 07:12] LABS: Absolute Lymphocyte Count 2.23 X10^3/uL (0.83-4.51); Absolute Neutrophil Count 4.9 X10^3/uL (2.0-7.7); Basophil# 0.08 X10^3/uL; Basophil% 0.9 % (0-1); Eosinophil# 0.59 X10^3/uL; Hematocrit 34.3 % (37-47); Hemoglobin 10.7 g/dL (12.0-15.0); Lymphocyte # 2.23 X10^3/ul (0.83-4.51); Lymphocyte % 26.4 % (19-41); Mean Corp Hgb Conc 31.2 g/dL (32-36); Mean Corpuscular Hgb 27.9 pg (27.0-32.0); Mean Corpuscular Volume 89.6 fL (81-99); Monocyte# 0.67 X10^3/uL; Monocyte% 7.9 % (0-10); NRBC Flagged by Analyzer 0 % (0-5); Neutrophil # 4.86 X10^3/uL (2.7-7.7); Neutrophil % 57.4 % (47-70); Platelet Count 296 K/mm3 (150-450); RBC Distribution Width CV 12.2 % (11.6-14.6); Red Blood Count 3.83 M/mm3 (4.2-5.4); White Blood Count 8.5 K/mm3 (4.4-11.0)
[2024-05-03 08:03] LABS: Anion Gap 8 (5-15); BUN 18 mg/dL (7-18); BUN/Creat Ratio 16.4 RATIO (10-20); Calcium,Total 8.6 mg/dL (8.5-10.1); Chloride 111 mmol/L (98-107); EST Glomerular Filtration Rate 55 mL/min (>60); Est Glom Filt Rate - Afr Amer 66 mL/min (>60); Glucose 125 mg/dL (74-106); Potassium 3.9 mmol/L (3.5-5.1); Sodium Level 141 mmol/L (136-145)
== END | disposition home or self-care (01) ==
LOC: OLS.SW 05:00
PROVIDERS: Visit Provider Internal Medicine
DX: I10 Essential (primary) hypertension (principal)
CPT/HCPCS: 36415; 80048; 83735; 85025

== ENCOUNTER → 2024-08-28 | Outpatient (REF) | payer MEDICAID, SELFPAY ==
[2024-08-28 08:21] LABS: Hematocrit 29.9 % (37-47); Hemoglobin 9.5 g/dL (12.0-15.0); Mean Corp Hgb Conc 31.8 g/dL (32-36); Mean Corpuscular Hgb 26.6 pg (27.0-32.0); Mean Corpuscular Volume 83.8 fL (81-99); Mean Platelet Vol. 11.2 fl (6.2-12.0); Platelet Count 554 K/mm3 (150-450); RBC Distribution Width CV 12.6 % (11.6-14.6); RBC Distribution Width SD 38.6 fl (35.1-43.9); Red Blood Count 3.57 M/mm3 (4.2-5.4); White Blood Count 9.9 K/mm3 (4.4-11.0)
[2024-08-28 08:57] LABS: T4 Total, Thyroxin 6.4 ug/dL (4.8-13.9)
[2024-08-28 09:41] LABS: ALB/GLOB Ratio 1.2 RATIO (0.9-2.4); AST(SGOT) 18 U/L (<=31); Alanine Aminotransfer ALT/SGPT 11 U/L (<=34); Albumin, Serum 3.9 g/dL (3.5-5.0); Alkaline Phosphatase 44 U/L (35-104); Anion Gap 14 (5-15); BUN 13 mg/dL (4-19); BUN/Creat Ratio 12.8 RATIO (10-20); Calcium,Total 9.1 mg/dL (7.6-11.0); Carbon Dioxide 18.1 mmol/L (21.0-32.0); Chloride 105 mmol/L (98-108); Creatinine, Serum 1.05 mg/dL (0.70-1.20); EST Glomerular Filtration Rate 62 (>60); Globulin 3.3 g/dL (2.2-4.2); Glucose 101 mg/dL (70-99); Protein, Total 7.2 g/dL (5.9-8.4); Sodium Level 138 mmol/L (133-145); Total Bilirubin < 0.15 mg/dL (0.00-1.30)
== END | disposition home or self-care (01) ==
LOC: OLS.SW 05:00
PROVIDERS: Visit Provider Internal Medicine
DX: I12.9 Hypertensive chronic kidney disease with stage 1 through stage 4 chronic kidney disease, or unspecified chronic kidney disease (principal); N18.30 Chronic kidney disease, stage 3 unspecified
CPT/HCPCS: 36415; 80053; 84436; 84443; 85027

== ENCOUNTER → 2024-09-03 | Outpatient (REF) | payer MEDICAID, SELFPAY ==
[2024-09-03 11:54] LABS: Microalbumin,Random Urine < 12.0 mg/L (NO RANGE EST.)
== END | disposition home or self-care (01) ==
LOC: OLS.SW 09:00
PROVIDERS: Visit Provider Family Medicine
DX: I10 Essential (primary) hypertension (principal); Z79.899 Other long term (current) drug therapy
CPT/HCPCS: 82043

== ENCOUNTER → 2025-02-08 | Outpatient (REF) | payer MEDICAID, SELFPAY ==
[2025-02-08 08:33] LABS: Hematocrit 26.7 % (37-47); Hemoglobin 7.8 g/dL (12.0-15.0); Mean Corp Hgb Conc 29.2 g/dL (32-36); Mean Corpuscular Volume 70.3 fL (81-99); Mean Platelet Vol. 10.8 fl (6.2-12.0); Platelet Count 468 K/mm3 (150-450); RBC Distribution Width CV 16.4 % (11.6-14.6); RBC Distribution Width SD 41.6 fl (35.1-43.9); Red Blood Count 3.80 M/mm3 (4.2-5.4); White Blood Count 7.8 K/mm3 (4.4-11.0)
[2025-02-08 08:50] LABS: AST(SGOT) 14 U/L (<=31); Alanine Aminotransfer ALT/SGPT 5 U/L (<=34); Albumin, Serum 3.8 g/dL (3.5-5.0); Alkaline Phosphatase 42 U/L (35-104); Anion Gap 13 (5-15); BUN 13 mg/dL (4-19); BUN/Creat Ratio 14.0 RATIO (10-20); Calcium,Total 9.5 mg/dL (7.6-11.0); Carbon Dioxide 21.3 mmol/L (21.0-32.0); Chloride 106 mmol/L (98-108); Globulin 3.2 g/dL (2.2-4.2); Glucose 89 mg/dL (70-99); Potassium 4.1 mmol/L (3.3-5.1)
== END | disposition home or self-care (01) ==
LOC: OLS.SW 06:50
PROVIDERS: Visit Provider Family Medicine
DX: Z79.899 Other long term (current) drug therapy (principal)
CPT/HCPCS: 36415; 80053; 84443; 85027

== ENCOUNTER → 2025-02-27 | Outpatient (REF) | payer MEDICAID, SELFPAY ==
[2025-02-27 12:02] LABS: Cholesterol 116 mg/dL (<=200); Low Density Lipoprotein Calc. 52 mg/dL; Triglycerides 98 mg/dL; Very Low Density Lipoprotein 20 mg/dL (5-40); cholesterol:hdl ratio screen 2.64
== END | disposition home or self-care (01) ==
LOC: OLS.SW 05:00
PROVIDERS: Visit Provider Family Medicine
DX: E78.5 Hyperlipidemia, unspecified (principal)
CPT/HCPCS: 36415; 80061

== ENCOUNTER → 2025-04-24 | Outpatient (REF) | payer MEDICAID, SELFPAY ==
--- OUTSIDE RECORDS SUMMARY | 2025-04-24 04:43 | XMS RPT_ITS | CCD ---
Author Organization [facility] Care Team Providers Care Technologist Development Name Role Phone HARVEY SPEARS Unavailable Unavailable PHYSICIAN, NONE Unavailable Unavailable Liat Bonilla MD Primary Care Provider LIAT BONILLA Primary Care Unavailab Dr. Desean Harris Primary Care Provider [phone] Dr. José Miguel Casanova Emergency Provider Dr. Erik Pineda Attending Provider Dr. José Miguel Casanova Referring Provider Dr. Desean Forte Primary Care Provide r Dr. Ronnie Kenyon Emergency Provider Dr. Kellee Larios Admit Provider Dr. Kellee Larios Attending Provider Dr. Kellee Larios Other Provider Dr. Georgette Jones Other Provider Dr. Hansel Clarke Attending Provider Dr. Georgette Jones Attending Provider [facility], [facility], OTHER Primary Care Unavailable MD Emery Subramanian Emergency Provider Dr. Desean Bonilla Primary Care Provider [phone] Dr. Jeison Lamas Admit Provider Dr. Jeison Lamas Attending Provider Dr. Jeison Lamas Other Provider Dr. Noman Maldonado Attending Provider Dr. Roger Alves Attending Provider Long, Dr. Duran Other Provider Dr. Courtney Gaxiola Emergency Provider Dr. Hakeem Boltonit Provider Dr. Hakeem Bolton Attending Provider Dr. Hakeem Bolton Other Provider Dr. Hansel Clarke Attending Provider 1([facility])[phone] Long, Dr. Duran Referring Provider 1([facility])[phone] Care Physician, No Primary Primary Care Provider Unavailable Dr. José Miguel Casanova Emergency Provider Dr. Hakeem Boltonit Provider 1([facility])[phone] Hakeem Bolton Attending Provider 1([facility])[phone] Dr. Hakeem Bolton Other Provider Dr. Hakeem Velez Other Provider 1([facility])[phone] Hakeem Velez Attending Provider 1([facility])[phone] Dr. Erik Pienda Other Provider Dr. Rad Baker Referring Provider 1([facility])[phone] Dr. Erik Pineda Attending Provider 1([facility])[phone] Roger Alves Attending Provider Dr. Roger Alves Other Provider Dr. Gay Pantoja Attending Provider Dr. Jeison Lamas Attending Provider Dr. Jeison Lamas Other Provider Dr. Rad Baker Attending Provider Dr. Rad Baker Other Provider Care Physician, No Primary Referring Provider Un available Dr. Hansel Clarke Attending Provider 1([facility])[phone] Care Physician, No Primary Primary Care Provider Unavailable Shoaib, Dr. Noman Attending Provider Dr. Roger Alves Referring Provider Care Physician, No Primary Primary Care Provider Unavailable Karen GREEN, Dr. Shipley Attending Provider Unavailosmany Thompson MD, Dr. Chand Attending Provider Unavail able Violetta Nicholas Attending Unavailable Care Physician, No Primary Primary Care Unava ilable Violetta Nicholas Attending Unavailable Care Physician, No Primary Primary Care Unava ilable Care Physician, No Primary Primary Care Unava ilable Mannie Pak Attending Unavailable Care Physician, No Primary Primary Care Unava ilable Mannie Pak Attending Unavailable Mannie Pak Attending Unavailable Care Physician, No Primary Primary Care Unava ilable Allergies Allergy Classification Reported Allergen(s) Allergy Type Date of Onset Reaction(s) Facility (20 sources) Penicillins; Translations: [PENICILLINS] Allergy to substance 06-10-2013 [facility] (1 source) Penicillins Drug Allergy 06-10-2013 [facility] (1 source) Penicillins Drug allergy (disorder) 05-21-2023 [facility] Repository Medications Current Medications Medication Drug Class(es) Dates Sig (Normalized) Sig (Original) acetaminophen 500 mg oral tablet (10 sources) Start: 04-26-2023 take 2 tablets by mouth every eight hours Acetaminophen 500 mg Tablet Active 1000 mg PO EVERY 8 HOURS 0 April 26, 2023 1:00am Start: 04-26-2023 take 1000 mg by mout h every eight hours Acetaminophen Active 1000 MG PO EVERY 8 HOURS 0 April 26, 2023 1:00am amLODIPine 10 mg oral tablet (11 sources) Dihydropyridine Calcium Channel Yolis Start: 04-26-2023 take 1 tablet by mouth once daily Amlodipine 10 mg Tablet Active 10 mg PO DAILY 0 April 26, 2023 1:00am Start: 10-24-2018 take 1 tablet by mikael th once daily amLODIPine (NORVASC) 2.5 mg tablet Indications: Hypertension, essential Take 1 tablet by mouth once daily. 30 tablet 5 10/24/2018 Active Comment on above: Take 1 tablet by mikael th once daily. aspirin 81 mg chewable tablet (17 sources) Platelet Aggregation Inhibitor, Nonsteroidal Anti-inflammatory Drug Start: 07-02-19 take 1 tablet by mouth once daily Aspirin 81 mg tablet,chewable Active 81 mg PO DAILY July 02, 2022 1:00am atorvastatin 40 mg oral tablet (16 sources) HMG-CoA Reductase Inhibitor Start: 10-21-19 take 2 tablets by mouth at bedtime Atorvastatin 40 mg Tablet Active 80 mg PO AT BEDTIME October 20, 2022 12:00am Start: 10-20-2022 take 80 mg by mouth at bedtime Atorvastatin Active 80 MG PO AT BEDTIME October 20, 2022 12:00am Start: 07-02-2022 take 80 mg by mouth at bedtime Atorvastatin Active 80 MG PO AT BEDTIME July 02, 2022 1:00am bisacodyl 10 mg rectal suppository (8 sources) Stimulant Laxative Start: 05-21-2023 Bisacodyl (Gentle Laxative (Bisacodyl)) 10 mg suppository Active 10 mg RC DAILY as needed May 21, 2023 1:00am calcium carbonate 500 mg chewable tablet (10 sources) Start: 04-26-2023 take 1 tablet by mouth three times daily at mealtime Calcium Carbonate 200 mg calcium (500 mg) Tablet,Chewable Active 500 mg PO 3 TIMES DAILY WITH MEALS 0 April 26, 2023 1:00am cholecalciferol 0.025 mg oral tablet (10 sources) Vitamin D Start: 04-26-2023 take 1 tablet by mouth once daily Cholecalciferol (Vitamin D3) 25 mcg (1,000 unit) Tablet Active 25 ug PO DAILY 0 April 26, 2023 1:00am diphenhydrAMINE hydrochloride 25 mg oral capsule (10 sources) Histamine-1 Receptor Antagonist Start: 04-26-2023 take 1 capsule by mouth every six hours as needed Diphenhydramine Hcl (Banophen) 25 mg Capsule Active 25 mg PO EVERY 6 HOURS NEEDED as needed for Itching 0 April 26, 2023 1:00am docusate sodium 50 mg / sennosides, detention 8.6 mg oral tablet (20 sources) Start: 10-20-2022 End: 04-26-2023 Sennosides-Docusate Sodium (Stool Softener-Stimulant Laxat) 8.6-50 mg Tablet Active 2 {tbl} PO TWICE A DAY 0 April 26, 2023 1:00am 0.4 ml enoxaparin sodium 100 mg/ml prefilled syringe (10 sources) Low Molecular Weight Heparin Start: 04-26-2023 Enoxaparin 40 mg/0.4 mL Syringe Active 40 mg SC DAILY 0 April 26, 2023 1:00am escitalopram 10 mg oral tablet (8 sources) Serotonin Reuptake Inhibitor Start: 05-21-2023 take 1 tablet by mouth once daily Escitalopram Oxalate (Lexapro) 10 mg tablet Active 10 mg PO DAILY May 21, 2023 1:00am gabapentin 100 mg oral capsule (8 sources) Anti-epileptic Agent Start: 05-21-2023 take 1 capsule by mouth twice daily Gabapentin 100 mg capsule Active 100 mg PO TWICE A DAY May 21, 2023 1:00am hydrALAZINE hydrochloride 50 mg oral tablet (10 sources) Arteriolar Vasodilator Start: 04-26-2023 take 1 tablet by mouth three times daily Hydralazine 50 mg Tablet Active 50 mg PO THREE TIMES A DAY 0 April 26, 2023 1:00am hydroCHLOROthiazide 25 mg oral tablet (3 sources) Thiazide Diuretic Start: 07-02-2022 take 25 mg by mouth once daily Hydrochlorothiazide Active 25 MG PO DAILY July 02, 2022 1:00am hydrOXYzine hydrochloride 25 mg oral tablet (9 sources) Antihistamine Start: 05-21-2023 take 1 tablet by mouth three times daily as needed Hydroxyzine Hcl 25 mg tablet Active 25 mg PO THREE TIMES A DAY as needed May 21, 2023 1:00am Start: 07-20-2018 take 1 capsule by [facility] three times daily as needed for anxiety hydrOXYzine pamoate (VISTARIL) 50 mg capsule Indications: Anxiety and depression Take 1 capsule by mouth three times daily as needed for Anxiety. 30 capsule 2 07/20/2018 Active Comment on above: Take 1 capsule by [facility] three times daily as needed for Anxiety. lisinopril 10 mg oral tablet (20 sources) Angiotensin Converting Enzyme Inhibitor Start: 04-26-2023 take 1 tablet by mouth once daily Lisinopril 10 mg Tablet Active 10 mg PO DAILY 0 April 26, 2023 1:00am Start: 10-20-2022 End: 04-26-2023 Lisinopril 20 mg tablet Disc ontinued 40 mg PO DAILY October 20, 2022 12:45pm April 26, 2023 10:55am Suggested to keep systolic blood pressure 1 50-160 FOR 1 week and then decrease to 130 mg over the next 2 to 4 weeks Start: 10-20-2022 End: 04-26-2023 Lisinopril Discontinued 40 M G PO DAILY 0 October 20, 2022 12:45pm April 26, 2023 10:55am Suggested to keep systolic blood pressure 1 50-160 FOR 1 week and then decrease to 130 mg over the next 2 to 4 weeks Start: 07-02-2022 End: 10-20-2022 take 1 tablet by mouth once daily Lisinopril 20 mg tablet Discontinued 20 mg PO DAILY July 02, 2022 1:00am October 20, 2022 12:45pm Start: 01-30-2021 take 20 mg by mouth once daily Lisinopril Active 20 MG PO DAILY January 30, 2021 12:00am Start: 10-24-2018 take 1 tablet by mikael th once daily lisinopril (ZESTRIL, PRINIVIL) 40 mg tablet Indications: Hypertension, essential Take 1 tablet by mouth once daily. 30 tablet 5 10/24/2018 Active Comment on above: Take 1 tablet by mikael th once daily. Menthol / Zinc Oxide (10 sources) Start: 04-26-2023 Menthol-Zinc Oxide (Calmoseptine) 0.44-20.6 % Ointment Active 1 NMA TOPICAL 4 TIMES DAILY 0 April 26, 2023 1:00am Please contact the information source for Protocol details. Start: 04-26-2023 Menthol-Zinc O xide (Calmoseptine) 0.44-20.6 % Ointment Active 1 APPLIC TOPICAL 4 TIMES DAILY 0 April 26, 2023 1:00am Start: 04-26-2023 Menthol-Zinc O xide (Calmoseptine) 0.44-20.6 % Ointment Active 1 APPLIC TOPICAL 4 TIMES DAILY 0 April 26, 2023 12:00am 24 hr metoprolol succinate 50 mg extended release oral tablet (20 sources) beta-Adrenergic Yolis Start: 07-02-2022 take 50 mg by mouth once daily Metoprolol Succinate Active 50 MG PO DAILY July 02, 2022 1:00am Start: 11-26-2020 End: 01-30-2021 take 1 tablet by mouth once daily Metoprolol Succinate (Toprol Xl) 50 mg tablet extended release 24 hr Discontinued 50 mg PO DAILY November 26, 2020 12:00am January 30, 2021 1:47pm Multivitamin Capsule (2 sources) Start: 09-24-2022 Multivitamin C apsule Active 1 NMA PO DAILY September 24, 2022 12:00am Multivitamin preparation (13 sources) Start: 09-24-2022 take 1 capsule by mouth once daily Multivitamin Active 1 CAP PO DAILY September 23, 2022 11:00pm Start: 09-24-2022 take 1 capsule by mo uth once daily Multivitamin Active 1 CAP PO DAILY September 24, 2022 12:00am [place] (Nk) (1 source) Start: 04-29-2022 [place] (Nk) A ctive April 29, 2022 12:00am polyethylene glycol 3350 83845 mg powder for oral solution (20 sources) Osmotic Laxative Start: 04-26-2023 take 17 g by mouth twice daily Polyethylene Glycol 3350 17 gram Powder In Packet Active 17 g PO TWICE A DAY April 26, 2023 1:00am Start: 09-27-2022 End: 04-26-2023 take 17 g by mouth once daily Polyethylene Glycol 3350 17 gram powder in packet Discontinued 17 g PO DAILY October 18, 2022 10:08pm April 26, 2023 11:01am Completed/Discontinued Medications Medication Drug Class(es) Dates Sig (Normalized) Sig (Original) [id number] 200 actuat albuterol 0.09 mg/actuat metered dose inhaler (1 source) beta2-Adrenergic Agonist Start: 10-24-2018 take 2 puff(s) by inhalation every four hours as needed albuterol HFA (PROAIR HFA) 90 mcg/actuation inhaler Inhale 2 Puffs as instructed every 4 hours as needed. 1 Inhaler 0 10/24/2018 Active Comment on above: Inhale 2 Puffs as in structed every 4 hours as needed. benzonatate 100 mg oral capsule (1 source) Non-narcotic Antitussive Start: 03-28-2020 take 2 capsules by mouth every eight hours as needed benzonatate (TESSALON PERLES) 100 mg capsule Take 2 capsules by mouth three times daily as needed. 30 capsule 0 03/28/2020 Active Comment on above: Take 2 capsules by m outh three times daily as needed. cetirizine hydrochloride 10 mg oral tablet (1 source) Histamine-1 Receptor Antagonist Start: 07-20-2018 take 1 tablet by mouth once daily cetirizine (ZYRTEC) 10 mg tablet Indications: Environmental allergies Take 1 tablet by mouth once daily. 30 tablet 0 07/20/2018 Active Comment on above: Take 1 tablet by mikael th once daily. cloNIDine hydrochloride 0.1 mg oral tablet (19 sources) Central alpha-2 Adrenergic Agonist Start: 11-26-2020 End: 01-30-2021 Clonidine Hcl 0.1 mg tablet Discontinued 0.1 mg PO Q4H as needed for hypertensive emergency 10 08November 26, 2020 12:00am January 30, 2021 1:47pm Administer for blood pressure readings greater than 185 systolic or 105 diastolic clopidogrel 75 mg oral tablet (17 sources) [id number] Platelet Inhibitor Start: 07-04-2022 End: 09-24-2022 take 1 tablet by mouth once daily Clopidogrel 75 mg Tablet Discontinued 75 mg PO DAILY July 04, 2022 1:00am September 24, 2022 11:34am FLUoxetine 40 mg oral capsule (1 source) Serotonin Reuptake Inhibitor take 1 capsule by mouth once daily FLUoxetine HCl (PROZAC) 40 mg capsule Take 40 mg by mouth once daily. 0 Active Comment on above: Take 40 mg by mouth once daily. fluticasone propionate 0.05 mg/actuat metered dose nasal spray (2 sources) Corticosteroid Start: 10-24-2018 take 2 spray(s) by mouth once daily fluticasone (FLONASE) 50 mcg/actuation nasal spray Use 2 Sprays in each nostril once daily. Rinse mouth after use. 1 Bottle 0 03/28/2020 Active Comment on above: Use 2 Sprays in each nostril once daily. Rinse mouth after use. 24 hr nicotine 0.875 mg/hr transdermal system (20 sources) Cholinergic Nicotinic Agonist Start: 09-27-2022 End: 05-21-2023 apply 1 dose transdermal route every twenty-four hours Nicotine 21 mg/24 hr Patch 24 Hour Discontinued 21 mg TD DAILY 0 April 26, 2023 1:00am May 21, 2023 11:09am Start: 09-27-2022 End: 05-21-2023 Nicotine Discontinued 21 MG TD DAILY 0 April 26, 2023 1:00am May 21, 2023 11:09am oxyCODONE hydrochloride 5 mg oral tablet (10 sources) Opioid Agonist Start: 04-26-2023 End: 05-21-2023 take 3 tablets by mouth every four hours as needed for pain Oxycodone 5 mg Tablet Discontinued 15 mg PO EVERY 4 HOURS NEEDED as needed for Pain Score 6-10 10 April 26, 2023 May 21, 2023 11:09am Start: 04-26-2023 End: 05-21-2023 take 15 mg by mouth every four hours as needed Oxycodone Discontinued 15 MG PO EVERY 4 HOURS NEEDED 10 April 26, 2023 May 21, 2023 11:09am rivaroxaban 2.5 mg oral tablet (13 sources) Factor Xa Inhibitor Start: 10-20-2022 End: 04-26-2023 take 1 tablet by mouth twice daily Rivaroxaban (Xarelto) 2.5 mg tablet Discontinued 2.5 mg PO TWICE A DAY 60 October 20, 2022 12:00am April 26, 2023 11:12am traZODone hydrochloride 50 mg oral tablet (1 source) Serotonin Reuptake Inhibitor Start: 07-20-2018 take 1 tablet by mouth once daily at bedtime traZODone (DESYREL) 50 mg tablet Indications: Chronic insomnia Take 1 tablet by mouth daily at bedtime. 30 tablet 3 07/20/2018 Active Comment on above: Take 1 tablet by mikael th daily at bedtime. 24 hr divalproex sodium 500 mg extended release oral tablet (1 source) Mood Stabilizer, Anti-epileptic Agent Start: 10-06-2018 take 1 tablet by mouth once daily at bedtime divalproex ER (DEPAKOTE ER) 500 mg 24 hr tablet Take 500 mg by mouth daily at bedtime. 1 10/06/2018 Active Comment on above: Take 500 mg by mouth daily at bedtime. Problems Problem Classification Problem Date Documented Date Episodic/Chronic Acute and unspecified renal failure (20 sources) Injury of kidney; Translations: [Acute kidney failure, unspecified] 08-21-2021 Episodic Acute cerebrovascular disease (20 sources) Cerebrovascular accident; Translations: [Cerebral infarction, unspecified] Chronic Alcohol-related disorders (1 source) H/O: alcoholism; Translations: [Alcohol dependence, in remission] 08-21-2016 Chronic Anxiety disorders (1 source) Anxiety; Translations: [Anxiety disorder, unspecified] 08-21-2016 Chronic Biliary tract disease (19 sources) Acute cholecystitis without calculus; Translations: [Acute cholecystitis] 08-08-2021 Episodic Chronic kidney disease (1 source) Chronic kidney disease; Translations: [Chronic kidney disease, stage 3 unspecified] Onset: 5 Conditions associated with dizziness or vertigo (18 sources) Vertigo of central origin; Translations: [Vertigo of central origin] 05-07-2022 Episodic Deficiency and other anemia (19 sources) Normocytic anemia; Translations: [Anemia, unspecified] 08-08-2021 Episodic Disorders of lipid metabolism (1 source) Hyperlipidemia, unspecified; Translations: [Hyperlipidemia, unspecified] Onset: 5 Chronic E Codes: Fall (13 sources) Fall on same level from slipping, tripping or stumbling ; Translations: [Fall on same level from slipping, tripping and stumbling without subsequent striking against object, initial encounter] 04-18-2023 Episodic Essential hypertension (20 sources) Hypertensive disorder; Translations: [Essential (primary) hypertension] Onset: 5 05-07-2022 Chronic Fluid and electrolyte disorders (17 sources) Hypokalemia; Translations: [Hypokalemia] 04-19-2023 Episodic Fracture of neck of femur (hip) (19 sources) Closed intertrochanteric fracture; Translations: [Displaced intertrochanteric fracture of left femur, initial encounter for closed fracture] 04-18-2023 Episodic Fracture of upper limb (19 sources) Fracture of humerus ; Translations: [Unspecified fracture of shaft of humerus, unspecified arm, initial encounter for closed fracture] 04-30-2022 Episodic Headache; including migraine (18 sources) Migraine; Translations: [Migraine, unspecified, not intractable, without status migrainosus] 04-29-2022 Chronic Headache; including migraine (20 sources) Headache; Translations: [Headache] 02-07-2021 Episodic Hepatitis (19 sources) Type B viral hepatitis; Translations: [Unspecified viral hepatitis B without hepatic coma] 08-09-2021 Episodic Hypertension with complications and secondary hypertension (20 sources) Hypertensive urgency ; Translations: [Hypertensive urgency] Chronic Inflammation; infection of eye (except that caused by tuberculosis or sexually transmitteddisease) (1 source) Uveitis; Translations: [Unspecified iridocyclitis] 08-21-2016 Episodic Late effects of cerebrovascular disease (13 sources) Hemiparesis as late effect of cerebrovascular accident; Translations: [Hemiplegia and hemiparesis following cerebral infarction affecting left non-dominant side] 04-18-2023 Chronic Mood disorders (2 sources) Depressive disorder; Translations: [Depression] 08-21-2016 Chronic Nausea and vomiting (20 sources) Nausea, vomiting and diarrhea; Translations: [Nausea with vomiting, unspecified] 07-13-2019 Episodic Other aftercare (8 sources) Follow-up status; Translations: [Encounter for other orthopedic aftercare] 05-21-2023 Episodic Other aftercare (5 sources) Encounter for other orthopedic aftercare; Translations: [Unspecified orthopedic aftercare] 05-21-2023 Episodic Other aftercare (1 source) Other long-term (current) drug therapy; Translations: [Other long-term (current) drug therapy] Onset: Episodic Other circulatory disease (16 sources) Neurological symptom; Translations: [Other specified symptoms and signs involving the circulatory and respiratory systems] 09-24-2022 Episodic Other circulatory disease (5 sources) Other specified symptoms and signs involving the circulatory and respiratory systems; Translations: [Other symptoms involving nervous and musculoskeletal systems] 09-24-2022 Episodic Other circulatory disease (12 sources) History of embolic cerebrovascular accident; Translations: [Personal history of transient ischemic attack (TIA), and cerebral infarction without residual deficits] 01-14-2023 Episodic Other connective tissue disease (13 sources) Muscle weakness of limb; Translations: [Other symptoms and signs involving the musculoskeletal system] 09-24-2022 Episodic Other connective tissue disease (16 sources) Muscle weakness of upper limb; Translations: [Other symptoms and signs involving the musculoskeletal system] 09-24-2022 Episodic Other connective tissue disease (11 sources) Other symptoms and signs involving the musculoskeletal system; Translations: [Other musculoskeletal symptoms referable to limbs] 09-24-2022 Episodic Other connective tissue disease (3 sources) Monoparesis - leg; Translations: [Other symptoms and signs involving the musculoskeletal system] 05-15-2023 Episodic Other liver diseases (19 sources) Enzyme level - finding; Translations: [Elevated transaminase measurement] 08-09-2021 Episodic Other liver diseases (19 sources) Acute hepatic failure; Translations: [Acute and subacute hepatic failure without coma] 08-08-2021 Episodic Other nervous system disorders (17 sources) Disorder of brain; Translations: [Encephalopathy, unspecified] 07-12-2022 Chronic Other nervous system disorders (5 sources) Encephalopathy, unspecified; Translations: [Encephalopathy, unspecified] Chronic Other nervous system disorders (18 sources) Ataxia; Translations: [Ataxia, unspecified] 05-07-2022 Episodic Other non-traumatic joint disorders (1 source) Shoulder pain; Translations: [Pain in right shoulder] Episodic Other nutritional; endocrine; and metabolic disorders (19 sources) Hyperbilirubinemia; Translations: [Other disorders of bilirubin metabolism] 08-08-2021 Chronic Other screening for suspected conditions (not mental disorders or infectious disease) (19 sources) Protein level - finding; Translations: [Other specified abnormal findings of blood chemistry] 08-08-2021 Episodic Residual codes; unclassified (1 source) Tobacco use and exposure - finding; Translations: [Tobacco use] 08-21-2016 Episodic Residual codes; unclassified (20 sources) Noncompliance with medication regimen; Translations: [Patient's other noncompliance with medication regimen] 05-07-2022 Episodic Sprains and strains (12 sources) Sprain of ankle; Translations: [Sprain of unspecified ligament of left ankle, initial encounter] 01-14-2023 Episodic Substance-related disorders (19 sources) Methamphetamine abuse; Translations: [Other stimulant abuse, uncomplicated] 08-08-2021 Chronic Superficial injury; contusion (12 sources) Contusion of foot; Translations: [Contusion of left foot, initial encounter] 01-14-2023 Episodic Urinary tract infections (19 sources) Urinary tract infectious disease; Translations: [Urinary tract infection, site not specified] 08-08-2021 Episodic Results Test Name Value Interpretation Reference Range Facility Lipid Profileon 02-27-2025 CHOL:HDL 2.64 Normal [facility] Comment on above: Order Comment: 509.2 Performed By: #### L [id number], L100.0100, L500.2500 #### [facility] [place], [address] Cholesterol [Mass/Vol] 116 mg/dL Normal <=200 [facility] Comment on above: Order Comment: 509.2 Result Comment: Chol esterol level, Desirable <200 mg/dL Borderline high cholesterol 200-239 mg/dL High cholesterol >=240 mg/dL Recommendations of the NCEP Adult Treatment Panel for the following risk-cutoff thresholds for the [place] population. Performed By: #### L [id number], L100.0100, L500.2500 #### [facility] [address] [place], [address] Cholesterol in HDL [Mass/Vol] 44 mg/dL Normal [facility] Comment on above: Order Comment: 509.2 Result Comment: Joanna onal Cholesterol Education Program (NCEP) guidelines: <40 mg/dL: Low HDL-cholesterol (major risk factor for CHD) >= 60 mg/dL: High HDL-cholesterol (negative risk factor for CHD) HDL-cholesterol is affected by a number of factors, e.g. smoking, exercise, hormones, sex and age. Performed By: #### L [id number], L100.0100, L500.2500 #### [facility] [address] [place], [address] Cholesterol in LDL [Mass/Vol] 52 mg/dL Normal [facility] Comment on above: Order Comment: 509.2 Result Comment: Bord crbrhp=074-662 mg/dL Higher Codx=921 mg/dL or greater Friedwald Equation for LDL-C Performed By: #### L [id number], L100.0100, L500.2500 #### [facility] [address] [place], [address] Cholesterol in VLDL [Mass/Vol] 20 mg/dL Normal 5-40 [facility] Comment on above: Order Comment: 509.2 Performed By: #### L 501.5200, L100.0100, L500.2500 #### [facility] [address] [place], [address] Triglyceride [Mass/Vol] 98 mg/dL Normal [facility] Comment on above: Order Comment: 509.2 Result Comment: The drugs N-Acetylcysteine and Metamizole may falsely depress this assay. Normal range: <150 mg/dL Borderline High: 150-199 mg/dL High: 200-499 mg/dL Very High: >500 mg/dL Performed By: #### L 501.5200, L100.0100, L500.2500 #### [facility] [address] [place], [address] CBC-Complete Blood Cnt No Di ffon 02-08-2025 Erythrocyte distribution width (RBC) [Ratio] 16.4 % High 11.6-14.6 [facility] Comment on above: Order Comment: 510-2 Performed By: #### L 100.0500, L501.9520, L500.4050 #### [facility] [address] [place], [address] Hematocrit (Bld) [Volume fraction] 26.7 % Low 37-47 [facility] Comment on above: Order Comment: 510-2 Performed By: #### L 100.0500, L501.9520, L500.4050 #### [facility] [address] [place], [address] Hemoglobin (Bld) [Mass/Vol] 7.8 g/dL Low 12.0-15.0 [facility] Comment on above: Order Comment: 510-2 Performed By: #### L 100.0500, L501.9520, L500.4050 #### [facility] [address] [place], [address] MCH (RBC) [Entitic mass] 20.5 pg Low 27.0-32.0 [facility] Comment on above: Order Comment: 510-2 Performed By: #### L 100.0500, L501.9520, L500.4050 #### [facility] [address] [place], [address] MCHC (RBC) [Mass/Vol] 29.2 g/dL Low 32-36 [facility] Comment on above: Order Comment: 510-2 Performed By: #### L 100.0500, L501.9520, L500.4050 #### [facility] [address] [place], [address] MCV (RBC) [Entitic vol] 70.3 fL Low 81-99 [facility] Comment on above: Order Comment: 510-2 Performed By: #### L 100.0500, L501.9520, L500.4050 #### [facility] [address] [place], [address] Platelet mean volume (Bld) [Entitic vol] 10.8 fL Normal 6.2-12.0 [facility] Comment on above: Order Comment: 510-2 Performed By: #### L 100.0500, L501.9520, L500.4050 #### [facility] [address] [place], [address] Platelets (Bld) [#/Vol] 468 10*3/uL High 150-450 [facility] Comment on above: Order Comment: 510-2 Performed By: #### L 100.0500, L501.9520, L500.4050 #### [facility] [address] [place], [address] RBC (Bld) [#/Vol] 3.80 10*6/uL Low 4.2-5.4 [facility] Comment on above: Order Comment: 510-2 Performed By: #### L 100.0500, L501.9520, L500.4050 #### [facility] [address] [place], [address] RDW SD 41.6 fl Normal 35.1-43.9 [facility] Comment on above: Order Comment: 510-2 Performed By: #### L 100.0500, L501.9520, L500.4050 #### [facility] [address] [place], [address] WBC (Bld) [#/Vol] 7.8 10*3/uL Normal 4.4-11.0 [facility] Comment on above: Order Comment: 510-2 Performed By: #### L 100.0500, L501.9520, L500.4050 #### [facility] [address] [place], [address] Comprehensive Metabolic Prof [facility] 02-08-2025 Albumin [Mass/Vol] 3.8 g/dL Normal 3.5-5.0 [facility] Comment on above: Order Comment: 510-2 Performed By: #### L 100.0500, L501.9520, L500.4050 #### [facility] [address] [place], [address] Albumin/Globulin [Mass ratio] 1.2 {ratio} Normal 0.9-2.4 [facility] Comment on above: Order Comment: 510-2 Performed By: #### L 100.0500, L501.9520, L500.4050 #### [facility] [address] [place], [address] ALK PHOS 42 U/L Normal 35-104 [facility] Comment on above: Order Comment: 510-2 Performed By: #### L 100.0500, L501.9520, L500.4050 #### [facility] [address] [place], [address] ALT [Catalytic activity/Vol] 5 U/L Normal <=34 [facility] Comment on above: Order Comment: 510-2 Performed By: #### L 100.0500, L501.9520, L500.4050 #### [facility] [address] [place], [address] AST [Catalytic activity/Vol] 14 U/L Normal <=31 [facility] Comment on above: Order Comment: 510-2 Performed By: #### L 100.0500, L501.9520, L500.4050 #### [facility] [address] [place], [address] Bilirubin [Mass/Vol] 0.19 mg/dL Normal 0.00-1.30 [facility] Comment on above: Order Comment: 510-2 Performed By: #### L 100.0500, L501.9520, L500.4050 #### [facility] [address] [place], [address] BUN/CRE 14.0 RATIO Normal 10-20 [facility] Comment on above: Order Comment: 510-2 Performed By: #### L 100.0500, L501.9520, L500.4050 #### [facility] [address] [place], [address] Calcium [Mass/Vol] 9.5 mg/dL Normal 7.6-11.0 [facility] Comment on above: Order Comment: 510-2 Performed By: #### L 100.0500, L501.9520, L500.4050 #### [facility] [address] [place], [address] Chloride [Moles/Vol] 106 mmol/L Normal 98-108 [facility] Comment on above: Order Comment: 510-2 Performed By: #### L 100.0500, L501.9520, L500.4050 #### [facility] [address] [place], [address] CO2 [Moles/Vol] 21.3 mmol/L Normal 21.0-32.0 [facility] Comment on above: Order Comment: 510-2 Performed By: #### L 100.0500, L501.9520, L500.4050 #### [facility] [address] [place], [address] Creatinine [Mass/Vol] 0.94 mg/dL Normal 0.70-1.20 [facility] Comment on above: Order Comment: 510-2 Performed By: #### L 100.0500, L501.9520, L500.4050 #### [facility] [address] [place], [address] GAP 13 Normal 5-15 [facility] Comment on above: Order Comment: 510-2 Performed By: #### L 100.0500, L501.9520, L500.4050 #### [facility] [address] [place], [address] GFR/1.73 sq M.predicted among non-blacks MDRD (S/P/Bld) [Vol rate/Area] 71 mL/min/{1.73_m2} Normal >60 [facility] Comment on above: Order Comment: 510-2 Result Comment: mL/m in/1.73m2 CKD-EPI Creatinine Equation (2020) Performed By: #### L 100.0500, L501.9520, L500.4050 #### [facility] [address] [place], [address] Globulin (S) [Mass/Vol] 3.2 g/dL Normal 2.2-4.2 [facility] Comment on above: Order Comment: 510-2 Performed By: #### L 100.0500, L501.9520, L500.4050 #### [facility] [address] [place], [address] Glucose [Mass/Vol] 89 mg/dL Normal 70-99 [facility] Comment on above: Order Comment: 510-2 Performed By: #### L 100.0500, L501.9520, L500.4050 #### [facility] [address] [place], [address] Potassium [Moles/Vol] 4.1 mmol/L Normal 3.3-5.1 [facility] Comment on above: Order Comment: 510-2 Performed By: #### L 100.0500, L501.9520, L500.4050 #### [facility] [address] [place], [address] Sodium [Moles/Vol] 139 mmol/L Normal 133-145 [facility] Comment on above: Order Comment: 510-2 Performed By: #### L 100.0500, L501.9520, L500.4050 #### [facility] [address] [place], [address] T PROT 7.0 g/dL Normal 5.9-8.4 [facility] Comment on above: Order Comment: 510-2 Performed By: #### L 100.0500, L501.9520, L500.4050 #### [facility] [address] [place], [address] Urea nitrogen [Mass/Vol] 13 mg/dL Normal 4-19 [facility] Comment on above: Order Comment: 510-2 Performed By: #### L 100.0500, L501.9520, L500.4050 #### [facility] [address] [place], [address] Thyroid Stim Hormone (TSH)on 02-08-2025 TSH 0.704 uIU/mL Normal 0.300-4.200 [facility] Comment on above: Order Comment: 509.2 Performed By: #### L 501.5200, L100.0100, L500.2500 #### [facility] [address] [place], [address] Albumin DL <= 20 mg/L (U) [M ass/Vol]Ordered By: Mannie Thompson on 09-03-2024 Urine Random Microalbumin < 12.0 mg/L NO RANGE EST. [facility] Microalbumin,Random Urineon 09-03-2024 MICROALBUMIN,UR < 12.0 Normal NO RANGE EST. [facility] Comment on above: Performed By: #### L 502.0500 #### [facility] [address] [place], [address] Anion gap in Serum or Plasma Ordered By: Violetta Jones on 08-28-2024 Anion gap [Moles/Vol] 14 mmol/L 5-15 [facility] Automated blood erythrocyte countOrdered By: Violetta Jones on 08-28-2024 RBC (Bld) [#/Vol] 3.57 10*6/uL Low 4.2-5.4 [facility] Comment on above: Order Comment: 510.2 Performed By: #### L 100.0500, L500.4050, L501.9520, L501.9310 #### [facility] [address] [place], [address] Automated blood hematocrit ( percentage)Ordered By: Violetta Jones on 08-28-2024 Hematocrit (Bld) [Volume fraction] 29.9 % Low 37-47 [facility] Comment on above: Order Comment: 510.2 Performed By: #### L 100.0500, L500.4050, L501.9520, L501.9310 #### [facility] [address] [place], [address] BUN/creatinine ratioOrdered By: Violetta Jones on 08-28-2024 Urea nitrogen/Creatinine [Mass ratio] 12.8 mg/mg 10-20 [facility] Bilirubin, totalOrdered By: Violetta Jones on 08-28-2024 Bilirubin [Mass/Vol] mg/dL 0.00-1.30 [facility] CBC-Complete Blood Cnt No Di ffon 08-28-2024 RDW SD 38.6 fl Normal 35.1-43.9 [facility] Comment on above: Order Comment: 510.2 Performed By: #### L 100.0500, L500.4050, L501.9520, L501.9310 #### [facility] [address] [place], [address] Carbon dioxide, total [Moles /volume] in Central venous bloodOrdered By: Violetta Jones on 08-28-2024 CO2 [Moles/Vol] 18.1 mmol/L Low 21.0-32.0 [facility] Comment on above: Order Comment: 510.2 Performed By: #### L 100.0500, L500.4050, L501.9520, L501.9310 #### [facility] [address] [place], [address] Chloride assayOrdered By: Yimi Jones on 08-28-2024 Chloride [Moles/Vol] 105 mmol/L Normal 98-108 [facility] Comment on above: Order Comment: 510.2 Performed By: #### L 100.0500, L500.4050, L501.9520, L501.9310 #### [facility] [address] [place], [address] Comprehensive Metabolic Prof ilon 08-28-2024 ALK PHOS 44 U/L Normal 35-104 [facility] Comment on above: Order Comment: 510.2 Performed By: #### L 100.0500, L500.4050, L501.9520, L501.9310 #### [facility] [address] [place], [address] BUN/CRE 12.8 RATIO Normal 10-20 [facility] Comment on above: Order Comment: 510.2 Performed By: #### L 100.0500, L500.4050, L501.9520, L501.9310 #### [facility] [address] [place], [address] GAP 14 Normal 5-15 [facility] Comment on above: Order Comment: 510.2 Performed By: #### L 100.0500, L500.4050, L501.9520, L501.9310 #### [facility] [address] [place], [address] GFR/1.73 sq M.predicted among non-blacks MDRD (S/P/Bld) [Vol rate/Area] 62 mL/min/{1.73_m2} Normal >60 [facility] Comment on above: Order Comment: 510.2 Result Comment: mL/m in/1.73m2 CKD-EPI Creatinine Equation (2020) Performed By: #### L 100.0500, L500.4050, L501.9520, L501.9310 #### [facility] [address] [place], [address] T BILI < 0.15 Normal 0.00-1.30 [facility] Comment on above: Order Comment: 510.2 Performed By: #### L 100.0500, L500.4050, L501.9520, L501.9310 #### [facility] [address] [place], [address] T PROT 7.2 g/dL Normal 5.9-8.4 [facility] Comment on above: Order Comment: 510.2 Performed By: #### L 100.0500, L500.4050, L501.9520, L501.9310 #### [facility] [address] [place], [address] Comprehensive Metabolic Prof ilOrdered By: Violetta Jones on 08-28-2024 AST [Catalytic activity/Vol] 18 U/L Normal <=31 [facility] Comment on above: Order Comment: 510.2 Performed By: #### L 100.0500, L500.4050, L501.9520, L501.9310 #### [facility] [address] [place], [address] Erythrocyte distribution wid th ratioOrdered By: Violetta Jones on 08-28-2024 Erythrocyte distribution width (RBC) [Ratio] 12.6 % Normal 11.6-14.6 [facility] Comment on above: Order Comment: 510.2 Performed By: #### L 100.0500, L500.4050, L501.9520, L501.9310 #### [facility] [address] [place], [address] Erythrocyte distribution wid th standard deviationOrdered By: Violetta Jones on 08-28-2024 Erythrocyte distribution width (RBC) [Entitic vol] 38.6 fL 35.1-43.9 [facility] GFR/1.73 sq M.predicted mary g non-blacks MDRD (S/P/Bld) [Vol rate/Area]Ordered By: Violetta Jones on 08-28-2024 Estimated GFR (MDRD) Non-Af Amer 62 >60 [facility] Comment on above: mL/min/1.73m2 CKD-EP I Creatinine Equation (2020) Hemoglobin measurementOrdere d By: Violetta Jones on 08-28-2024 Hemoglobin (Bld) [Mass/Vol] 9.5 g/dL Low 12.0-15.0 [facility] Comment on above: Order Comment: 510.2 Performed By: #### L 100.0500, L500.4050, L501.9520, L501.9310 #### [facility] [address] [place], [address] MCV (mean corpuscular volume ) determinationOrdered By: Violetta Jones on 08-28-2024 MCV (RBC) [Entitic vol] 83.8 fL Normal 81-99 [facility] Comment on above: Order Comment: 510.2 Performed By: #### L 100.0500, L500.4050, L501.9520, L501.9310 #### [facility] [address] [place], [address] Mean corpuscular hemoglobin (MCH) determinationOrdered By: Violetta Jones on 08-28-2024 MCH (RBC) [Entitic mass] 26.6 pg Low 27.0-32.0 [facility] Comment on above: Order Comment: 510.2 Performed By: #### L 100.0500, L500.4050, L501.9520, L501.9310 #### [facility] [address] [place], [address] Mean corpuscular hemoglobin concentration (MCHC) determinationOrdered By: Violetta Jones on 08-28-2024 MCHC (RBC) [Mass/Vol] 31.8 g/dL Low 32-36 [facility] Comment on above: Order Comment: 510.2 Performed By: #### L 100.0500, L500.4050, L501.9520, L501.9310 #### [facility] [address] [place], [place], [address] Mean platelet volume determi nationOrdered By: Violetta Jones on 08-28-2024 Platelet mean volume (Bld) [Entitic vol] 11.2 fL Normal 6.2-12.0 [facility] Comment on above: Order Comment: 510.2 Performed By: #### L 100.0500, L500.4050, L501.9520, L501.9310 #### [facility] [address] [place], [address] Platelet countOrdered By: Yimi Jones on 08-28-2024 Platelets (Bld) [#/Vol] 554 10*3/uL High 150-450 [facility] Comment on above: Order Comment: 510.2 Performed By: #### L 100.0500, L500.4050, L501.9520, L501.9310 #### [facility] [address] [place], [address] Potassium measurement (mass/ volume)Ordered By: Violetta Jones on 08-28-2024 Potassium [Moles/Vol] 4.0 mmol/L Normal 3.3-5.1 [facility] Comment on above: Order Comment: 510.2 Performed By: #### L 100.0500, L500.4050, L501.9520, L501.9310 #### [facility] [address] [place], [address] Serum creatinine measurement (mass/volume)Ordered By: Violetta Jones on 08-28-2024 Creatinine [Mass/Vol] 1.05 mg/dL Normal 0.70-1.20 [facility] Comment on above: Order Comment: 510.2 Performed By: #### L 100.0500, L500.4050, L501.9520, L501.9310 #### [facility] [address] [place], [address] Serum globulin measurementOr dered By: Violetta Jones on 08-28-2024 Globulin (S) [Mass/Vol] 3.3 g/dL Normal 2.2-4.2 [facility] Comment on above: Order Comment: 510.2 Performed By: #### L 100.0500, L500.4050, L501.9520, L501.9310 #### [facility] [address] [place], [address] Serum glucose measurement (m ass/volume)Ordered By: Violetta Jones on 08-28-2024 Glucose [Mass/Vol] 101 mg/dL High 70-99 [facility] Comment on above: Order Comment: 510.2 Performed By: #### L 100.0500, L500.4050, L501.9520, L501.9310 #### [facility] [address] [place], [address] Serum or plasma alanine wade otransferase (ALT) measurementOrdered By: Violetta Jones on 08-28-2024 ALT [Catalytic activity/Vol] 11 U/L Normal <=34 [facility] Comment on above: Order Comment: 510.2 Performed By: #### L 100.0500, L500.4050, L501.9520, L501.9310 #### [facility] [address] [place], [address] Serum or plasma albumin bentley urement (mass/volume)Ordered By: Violetta Jones on 08-28-2024 Albumin [Mass/Vol] 3.9 g/dL Normal 3.5-5.0 [facility] Comment on above: Order Comment: 510.2 Performed By: #### L 100.0500, L500.4050, L501.9520, L501.9310 #### [facility] [address] [place], [address] Serum or plasma albumin/glob ulin mass ratioOrdered By: Violetta Jones on 08-28-2024 Albumin/Globulin [Mass ratio] 1.2 {ratio} Normal 0.9-2.4 [facility] Comment on above: Order Comment: 510.2 Performed By: #### L 100.0500, L500.4050, L501.9520, L501.9310 #### [facility] [address] [place], [address] Serum or plasma alkaline temo sphatase measurementOrdered By: Violetta Jones on 08-28-2024 ALP [Catalytic activity/Vol] 44 U/L 35-104 [facility] Serum or plasma calcium bentley urement (mass/volume)Ordered By: Violetta Jones on 08-28-2024 Calcium [Mass/Vol] 9.1 mg/dL Normal 7.6-11.0 [facility] Comment on above: Order Comment: 510.2 Performed By: #### L 100.0500, L500.4050, L501.9520, L501.9310 #### [facility] [address] [facility] [place], [address] Serum or plasma urea nitroge n measurement (mass/volume)Ordered By: Violetta Jones on 08-28-2024 Urea nitrogen [Mass/Vol] 13 mg/dL Normal 4-19 [facility] Comment on above: Order Comment: 510.2 Performed By: #### L 100.0500, L500.4050, L501.9520, L501.9310 #### [facility] [address] [place], [address] Sodium levelOrdered By: Raphael Jones on 08-28-2024 Sodium [Moles/Vol] 138 mmol/L Normal 133-145 [facility] Comment on above: Order Comment: 510.2 Performed By: #### L 100.0500, L500.4050, L501.9520, L501.9310 #### [facility] [address] [place], [address] TSH DL <= 0.005 mIU/L QnOrde red By: Violetta Jones on 08-28-2024 Thyroid Stimulating Hormone (TSH) 1.460 uIU/mL 0.300-4.200 [facility] Thyroid Stim Hormone (TSH)on 08-28-2024 TSH 1.460 uIU/mL Normal 0.300-4.200 [facility] Comment on above: Order Comment: 510.2 Performed By: #### L 100.0500, L500.4050, L501.9520, L501.9310 #### [facility] [address] [place], [address] ThyroxineOrdered By: Violetta Jones on 08-28-2024 T4 [Mass/Vol] 6.4 ug/dL Normal 4.8-13.9 [facility] Comment on above: Order Comment: 510.2 Performed By: #### L 100.0500, L500.4050, L501.9520, L501.9310 #### [facility] [address] [place], [address] Total proteinOrdered By: Benjamin Jones on 08-28-2024 Protein [Mass/Vol] 7.2 g/dL 5.9-8.4 [facility] White blood cell (WBC) count Ordered By: Violetta Jones on 08-28-2024 WBC (Bld) [#/Vol] 9.9 10*3/uL Normal 4.4-11.0 [facility] Comment on above: Order Comment: 510.2 Performed By: #### L 100.0500, L500.4050, L501.9520, L501.9310 #### [facility] [address] [place], [address] Basic Metabolic Profile (BMP )on 05-03-2024 BUN/CRE 16.4 RATIO Normal 10-20 [facility] Comment on above: Order Comment: 509.2 Performed By: #### L 501.5200, L100.0100, L500.2500 #### [facility] [address] [place], [address] CA,Total 8.6 mg/dL Normal 8.5-10.1 [facility] Comment on above: Order Comment: 509.2 Performed By: #### L 501.5200, L100.0100, L500.2500 #### [facility] [address] [place], [address] Chloride [Moles/Vol] 111 mmol/L High 98-107 [facility] Comment on above: Order Comment: 509.2 Performed By: #### L 501.5200, L100.0100, L500.2500 #### [facility] [address] [place], [address] CO2 [Moles/Vol] 22.0 mmol/L Normal 21.0-32.0 [facility] Comment on above: Order Comment: 509.2 Performed By: #### L 501.5200, L100.0100, L500.2500 #### [facility] [address] [place], [address] Creatinine [Mass/Vol] 1.10 mg/dL High 0.55-1.02 [facility] Comment on above: Order Comment: 509.2 Result Comment: The validity of the calculated GFR GFRAA in patients over 70 years has not been determined. Clinical correlation is essential. Performed By: #### L 501.5200, L100.0100, L500.2500 #### [facility] [address] [place], [address] EST GFR - AA 66 mL/min Normal >60 [facility] Comment on above: Order Comment: 509.2 Result Comment: Afri can Czech GFR Calc Performed By: #### L 501.5200, L100.0100, L500.2500 #### [facility] [address] [place], [address] GAP 8 Normal 5-15 [facility] Comment on above: Order Comment: 509.2 Performed By: #### L 501.5200, L100.0100, L500.2500 #### [facility] [address] [place], [address] GFR/1.73 sq M.predicted among non-blacks MDRD (S/P/Bld) [Vol rate/Area] 55 mL/min/{1.73_m2} Low >60 [facility] Comment on above: Order Comment: 509.2 Result Comment: Non- GFR Calc Performed By: #### L 501.5200, L100.0100, L500.2500 #### [facility] [address] [place], [address] Glucose [Mass/Vol] 125 mg/dL High 74-106 [facility] Comment on above: Order Comment: 509.2 Result Comment: Fast ing Glucose result from 100 to 125 mg/dL suggests IMPAIRED HOMEOSTASIS per A.D.A. criteria. Performed By: #### L 501.5200, L100.0100, L500.2500 #### [facility] [address] [place], [address] Potassium [Moles/Vol] 3.9 mmol/L Normal 3.5-5.1 [facility] Comment on above: Order Comment: 509.2 Result Comment: Mode rate Hemolysis, Result may be falsely increased. Performed By: #### L 501.5200, L100.0100, L500.2500 #### [facility] [address] [place], [address] Sodium [Moles/Vol] 141 mmol/L Normal 136-145 [facility] Comment on above: Order Comment: 509.2 Performed By: #### L 501.5200, L100.0100, L500.2500 #### [facility] [address] [place], [address] Urea nitrogen [Mass/Vol] 18 mg/dL Normal 7-18 [facility] Comment on above: Order Comment: 509.2 Performed By: #### L 501.5200, L100.0100, L500.2500 #### [facility] [address] [place], [address] CBC W/Diff, Automatedon 11- 3-2023 Absolute Lymph 2.23 X10 3/uL Normal 0.83-4.51 [facility] Comment on above: Order Comment: 509.2 Performed By: #### L 501.5200, L100.0100, L500.2500 #### [facility] [address] [place], [address] Absolute Neut 4.9 X10 3/uL Normal 2.0-7.7 [facility] Comment on above: Order Comment: 509.2 Performed By: #### L 501.5200, L100.0100, L500.2500 #### [facility] [address] [place], [address] Basophils/100 WBC (Bld) 0.9 % Normal 0-1 [facility] Comment on above: Order Comment: 509.2 Performed By: #### L 501.5200, L100.0100, L500.2500 #### [facility] [address] [place], [address] Eosinophils/100 WBC (Bld) 7.0 % High 0-5 [facility] Comment on above: Order Comment: 509.2 Performed By: #### L 501.5200, L100.0100, L500.2500 #### [facility] [address] [place], [address] Erythrocyte distribution width (RBC) [Ratio] 12.2 % Normal 11.6-14.6 [facility] Comment on above: Order Comment: 509.2 Performed By: #### L 501.5200, L100.0100, L500.2500 #### [facility] [address] [place], [address] Hematocrit (Bld) [Volume fraction] 34.3 % Low 37-47 [facility] Comment on above: Order Comment: 509.2 Performed By: #### L 501.5200, L100.0100, L500.2500 #### [facility] [address] [place], [address] Hemoglobin (Bld) [Mass/Vol] 10.7 g/dL Low 12.0-15.0 [facility] Comment on above: Order Comment: 509.2 Performed By: #### L 501.5200, L100.0100, L500.2500 #### [facility] [address] [place], [address] IG% 0.400 Normal 0.0-0.9 [facility] Comment on above: Order Comment: 509.2 Result Comment: IG% - Immature Granulocytes (promyelocytes, myelocytes and metamyelocytes) > 1% indicates that a LEFT SHIFT is Present. Performed By: #### L 501.5200, L100.0100, L500.2500 #### [facility] [address] [place], [address] Lymphocytes/100 WBC (Bld) 26.4 % Normal 19-41 [facility] Comment on above: Order Comment: 509.2 Performed By: #### L 501.5200, L100.0100, L500.2500 #### [facility] [address] [place], [address] MCH (RBC) [Entitic mass] 27.9 pg Normal 27.0-32.0 [facility] Comment on above: Order Comment: 509.2 Performed By: #### L 501.5200, L100.0100, L500.2500 #### [facility] [address] [place], [address] MCHC (RBC) [Mass/Vol] 31.2 g/dL Low 32-36 [facility] Comment on above: Order Comment: 509.2 Performed By: #### L 501.5200, L100.0100, L500.2500 #### [facility] [address] [place], [address] MCV (RBC) [Entitic vol] 89.6 fL Normal 81-99 [facility] Comment on above: Order Comment: 509.2 Performed By: #### L 501.5200, L100.0100, L500.2500 #### [facility] [address] [place], [address] Monocytes/100 WBC (Bld) 7.9 % Normal 0-10 [facility] Comment on above: Order Comment: 509.2 Performed By: #### L 501.5200, L100.0100, L500.2500 #### [facility] [address] [place], [address] Neutrophils/100 WBC (Bld) 57.4 % Normal 47-70 [facility] Comment on above: Order Comment: 509.2 Performed By: #### L 501.5200, L100.0100, L500.2500 #### [facility] [address] [place], [address] Nucleated RBC (Bld) [#/Vol] 0 10*3/uL Normal 0-5 [facility] Comment on above: Order Comment: 509.2 Performed By: #### L 501.5200, L100.0100, L500.2500 #### [facility] [address] [place], [address] Platelet mean volume (Bld) [Entitic vol] 12.0 fL Normal 6.2-12.0 [facility] Comment on above: Order Comment: 509.2 Performed By: #### L 501.5200, L100.0100, L500.2500 #### [facility] [address] [place], [address] Platelets (Bld) [#/Vol] 296 10*3/uL Normal 150-450 [facility] Comment on above: Order Comment: 509.2 Performed By: #### L 501.5200, L100.0100, L500.2500 #### [facility] [address] [place], [address] RBC (Bld) [#/Vol] 3.83 10*6/uL Low 4.2-5.4 [facility] Comment on above: Order Comment: 509.2 Performed By: #### L 501.5200, L100.0100, L500.2500 #### [facility] [address] [place], [address] RDW SD 40.0 fl Normal 35.1-43.9 [facility] Comment on above: Order Comment: 509.2 Performed By: #### L 501.5200, L100.0100, L500.2500 #### [facility] [address] [place], [address] WBC (Bld) [#/Vol] 8.5 10*3/uL Normal 4.4-11.0 [facility] Comment on above: Order Comment: 509.2 Performed By: #### L 501.5200, L100.0100, L500.2500 #### [facility] [address] [place], [place], [address] Magnesiumon 05-03-2024 Magnesium [Mass/Vol] 2.0 mg/dL Normal 1.6-2.6 [facility] Comment on above: Order Comment: 509.2 Result Comment: Mode rate Hemolysis, Result may be falsely increased. Performed By: #### L 501.5200, L100.0100, L500.2500 #### [facility] [address] [place], [address] Absolute lymphocyte countOrd ered By: Violettashaun Jones on 09-08-2023 Lymphocytes Auto (Unsp spec) [#/Vol] 2.46 10*3/uL 0.83-4.51 [facility] Automated lymphocyte count a s percentage of total leukocytesOrdered By: Violettashaun Jones on 09-08-2023 Lymphocytes/100 WBC Auto (Unsp spec) 25.4 % 19-41 [facility] Basophil percentageOrdered B y: Violetta Jones on 09-08-2023 Basophils/100 WBC (Bld) 0.8 % 0-1 [facility] Chloride [Moles/Vol] 110 mmol/L 98-107 [facility] Eosinophils/100 WBC (Bld) 4.3 % 0-5 [facility] Glucose [Mass/Vol] 82 mg/dL 74-106 [facility] Hemoglobin (Bld) [Mass/Vol] 10.7 g/dL 12.0-15.0 [facility] Monocytes/100 WBC (Bld) 8.2 % 0-10 [facility] Neutrophils (Bld) [#/Vol] 5.9 10*3/uL 2.0-7.7 [facility] Neutrophils/100 WBC (Bld) 61.0 % 47-70 [facility] Potassium [Moles/Vol] 4.1 mmol/L 3.5-5.1 [facility] Sodium [Moles/Vol] 140 mmol/L 136-145 [facility] WBC (Bld) [#/Vol] 9.7 10*3/uL 4.4-11.0 [facility] Determination of erythrocyte mean corpuscular volume (MCV)Ordered By: Violetta Jones on 09-08-2023 MCV (RBC) [Entitic vol] 90.7 fL 81-99 [facility] Erythrocyte distribution wid th ratioOrdered By: Violetta Jones on 09-08-2023 Erythrocyte distribution width (RBC) [Ratio] 11.7 % 11.6-14.6 [facility] Erythrocyte distribution wid th standard deviationOrdered By: Violettashaun Jones on 09-08-2023 Erythrocyte distribution width (RBC) [Entitic vol] 38.9 fL 35.1-43.9 [facility] Hematocrit Auto (Bld) [Volum e fraction]Ordered By: Violetta Jones on 09-08-2023 Hematocrit (Bld) [Volume fraction] 33.2 % 37-47 [facility] Immature granulocytes/100 WB C Auto (Bld)Ordered By: Violettashaun Jones on 09-08-2023 Immature granulocytes/100 WBC (Bld) 0.300 % 0.0-0.9 [facility] Comment on above: IG% - Immature Granu locytes (promyelocytes, myelocytes and metamyelocytes) > 1% indicates that a LEFT SHIFT is Present. Laboratory - Chemistry and C hemistry - challengeOrdered By: Violetta Jones on 09-08-2023 CO2 [Moles/Vol] 24.0 mmol/L 21.0-32.0 [facility] Magnesium [Mass/Vol] 2.4 mg/dL 1.6-2.6 [facility] Urea nitrogen/Creatinine [Mass ratio] 23.7 mg/mg 10-20 [facility] - Hematology and Cell countsOrdered By: Violetta Jones on 09-08-2023 MCH (RBC) [Entitic mass] 29.2 pg 27.0-32.0 [facility] MCHC (RBC) [Mass/Vol] 32.2 g/dL 32-36 [facility] Nucleated RBC/100 WBC (Bld) [Ratio] 0 % 0-5 [facility] Platelet mean volume (Bld) [Entitic vol] 11.8 fL 6.2-12.0 [facility] Platelets (Bld) [#/Vol] 293 10*3/uL 150-450 [facility] No Panel InformationOrdered By: Violetta Jones on 09-08-2023 Estimated GFR (MDRD) Amer 61 mL/min >60 [facility] Comment on above: GFR Calc Estimated GFR (MDRD) Non-Af Amer 51 mL/min >60 [facility] Comment on above: Non- GFR Calc RBC Auto (Bld) [#/Vol]Ordere d By: Violetta Jones on 09-08-2023 RBC (Bld) [#/Vol] 3.66 10*6/uL 4.2-5.4 [facility] Serum or plasma calcium bentley urement (mass/volume)Ordered By: Violetta Jones on 09-08-2023 Calcium [Mass/Vol] 9.6 mg/dL 8.5-10.1 [facility] Serum or plasma creatinine m easurement (mass/volume)Ordered By: Violetta Jones on 09-08-2023 Creatinine [Mass/Vol] 1.18 mg/dL 0.55-1.02 [facility] Comment on above: The validity of the calculated GFR & GFRAA in patients over 70 years has not been determined. Clinical correlation is essential. Serum or plasma urea nitroge n measurement (mass/volume)Ordered By: Violetta Jones on 09-08-2023 Urea nitrogen [Mass/Vol] 28 mg/dL 7-18 [facility] Thin prep Papanicolaou smear with manual screeningOrdered By: Violetta Jones on 09-08-2023 Thin prep Papanicolaou smear with manual screening 6 5-15 [facility] Absolute lymphocyte countOrd ered By: Violetta Jones on 05-14-2023 Lymphocytes Auto (Unsp spec) [#/Vol] 1.84 10*3/uL 0.83-4.51 [facility] Basophil percentageOrdered B y: Violetta Jones on 05-14-2023 Basophils/100 WBC (Bld) 0.9 % 0-1 [facility] Eosinophils/100 WBC (Bld) 6.4 % 0-5 [facility] Neutrophils (Bld) [#/Vol] 5.5 10*3/uL 2.0-7.7 [facility] Neutrophils/100 WBC (Bld) 62.4 % 47-70 [facility] WBC (Bld) [#/Vol] 8.8 10*3/uL 4.4-11.0 [facility] Blood erythrocytes count (nu mber/volume)Ordered By: Violetta Jones on 05-14-2023 RBC (Bld) [#/Vol] 3.84 10*6/uL 4.2-5.4 [facility] Blood hemoglobin measurement (mass/volume)Ordered By: Violetta Jones on 05-14-2023 Hemoglobin (Bld) [Mass/Vol] 10.8 g/dL 12.0-15.0 [facility] Blood lymphocytes/100 leukoc ytesOrdered By: Violetta Jones on 05-14-2023 Lymphocytes/100 WBC (Bld) 21.0 % 19-41 [facility] Blood monocytes/100 leukocyt esOrdered By: Violetta Jones on 05-14-2023 Monocytes/100 WBC (Bld) 9.1 % 0-10 [facility] Blood platelet mean volumeOr dered By: Violetta Jones on 05-14-2023 Platelet mean volume (Bld) [Entitic vol] 11.9 fL 6.2-12.0 [facility] Determination of erythrocyte mean corpuscular volume (MCV)Ordered By: Violetta Jones on 05-14-2023 MCV (RBC) [Entitic vol] 87.5 fL 81-99 [facility] Hematocrit Auto (Bld) [Volum e fraction]Ordered By: Violetta Jones on 05-14-2023 Hematocrit (Bld) [Volume fraction] 33.6 % 37-47 [facility] - Hematology and Cell countsOrdered By: Violetta Jones on 05-14-2023 Erythrocyte distribution width (RBC) [Entitic vol] 42.8 fL 35.1-43.9 [facility] Erythrocyte distribution width (RBC) [Ratio] 13.3 % 11.6-14.6 [facility] Immature granulocytes/100 WBC (Bld) 0.200 % 0.0-0.9 [facility] Comment on above: IG% - Immature Granu locytes (promyelocytes, myelocytes and metamyelocytes) > 1% indicates that a LEFT SHIFT is Present. MCH (RBC) [Entitic mass] 28.1 pg 27.0-32.0 [facility] Nucleated RBC/100 WBC (Bld) [Ratio] 0 % 0-5 [facility] MCHC Auto (RBC) [Mass/Vol]Or dered By: Violetta Jones on 05-14-2023 MCHC (RBC) [Mass/Vol] 32.1 g/dL 32-36 [facility] Platelets bldOrdered By: Benjamin Jones on 05-14-2023 Platelets (Bld) [#/Vol] 399 10*3/uL 150-450 [facility] Absolute lymphocyte countOrd ered By: Violetta Jones on 05-12-2023 Lymphocytes Auto (Unsp spec) [#/Vol] 2.21 10*3/uL 0.83-4.51 [facility] Basophil percentageOrdered B y: Violetta Jones on 05-12-2023 Basophils/100 WBC (Bld) 0.6 % 0-1 [facility] Chloride [Moles/Vol] 106 mmol/L 98-107 [facility] Eosinophils/100 WBC (Bld) 3.9 % 0-5 [facility] Glucose [Mass/Vol] 95 mg/dL 74-106 [facility] Neutrophils (Bld) [#/Vol] 7.6 10*3/uL 2.0-7.7 [facility] Neutrophils/100 WBC (Bld) 65.8 % 47-70 [facility] Potassium [Moles/Vol] 4.0 mmol/L 3.5-5.1 [facility] Sodium [Moles/Vol] 136 mmol/L 136-145 [facility] WBC (Bld) [#/Vol] 11.6 10*3/uL 4.4-11.0 [facility] Blood erythrocytes count (nu mber/volume)Ordered By: Violetta Jones on 05-12-2023 RBC (Bld) [#/Vol] 3.84 10*6/uL 4.2-5.4 [facility] Blood hemoglobin measurement (mass/volume)Ordered By: Violetta Jones on 05-12-2023 Hemoglobin (Bld) [Mass/Vol] 10.7 g/dL 12.0-15.0 [facility] Blood lymphocytes/100 leukoc ytesOrdered By: Violetta Jones on 05-12-2023 Lymphocytes/100 WBC (Bld) 19.1 % 19-41 [facility] Blood monocytes/100 leukocyt esOrdered By: Violetta Jones on 05-12-2023 Monocytes/100 WBC (Bld) 10.2 % 0-10 [facility] Blood platelet mean volumeOr dered By: Violetta Jones on 05-12-2023 Platelet mean volume (Bld) [Entitic vol] 12.1 fL 6.2-12.0 [facility] Determination of erythrocyte mean corpuscular volume (MCV)Ordered By: Violetta Jones on 05-12-2023 MCV (RBC) [Entitic vol] 87.2 fL 81-99 [facility] Hematocrit Auto (Bld) [Volum e fraction]Ordered By: Violetta Jones on 05-12-2023 Hematocrit (Bld) [Volume fraction] 33.5 % 37-47 [facility] - Chemistry and C hemistry - challengeOrdered By: Violetta Jones on 05-12-2023 CO2 [Moles/Vol] 26.0 mmol/L 21.0-32.0 [facility] Urea nitrogen/Creatinine [Mass ratio] 20.5 mg/mg 10-20 [facility] - Hematology and Cell countsOrdered By: Violetta Jones on 05-12-2023 Erythrocyte distribution width (RBC) [Entitic vol] 42.6 fL 35.1-43.9 [facility] Erythrocyte distribution width (RBC) [Ratio] 13.5 % 11.6-14.6 [facility] Immature granulocytes/100 WBC (Bld) 0.400 % 0.0-0.9 [facility] Comment on above: IG% - Immature Granu locytes (promyelocytes, myelocytes and metamyelocytes) > 1% indicates that a LEFT SHIFT is Present. MCH (RBC) [Entitic mass] 27.9 pg 27.0-32.0 [facility] Nucleated RBC/100 WBC (Bld) [Ratio] 0 % 0-5 [facility] MCHC Auto (RBC) [Mass/Vol]Or dered By: Violetta Jones on 05-12-2023 MCHC (RBC) [Mass/Vol] 31.9 g/dL 32-36 [facility] No Panel InformationOrdered By: Violetta Jones on 05-12-2023 Estimated GFR (MDRD) Amer 59 mL/min >60 [facility] Comment on above: GFR Calc Estimated GFR (MDRD) Non-Af Amer 49 mL/min >60 [facility] Comment on above: Non- GFR Calc Platelets bldOrdered By: Benjamin Jones on 05-12-2023 Platelets (Bld) [#/Vol] 403 10*3/uL 150-450 [facility] Serum or plasma calcium bentley urement (mass/volume)Ordered By: Violetta Jones on 05-12-2023 Calcium [Mass/Vol] 9.4 mg/dL 8.5-10.1 [facility] Serum or plasma creatinine m easurement (mass/volume)Ordered By: Violetta Jones on 05-12-2023 Creatinine [Mass/Vol] 1.22 mg/dL 0.55-1.02 [facility] Comment on above: The validity of the calculated GFR & GFRAA in patients over 70 years has not been determined. Clinical correlation is essential. Serum or plasma urea nitroge n measurement (mass/volume)Ordered By: Violetta Jones on 05-12-2023 Urea nitrogen [Mass/Vol] 25 mg/dL 7-18 [facility] Thin prep Papanicolaou smear with manual screeningOrdered By: Violetta Jones on 05-12-2023 Thin prep Papanicolaou smear with manual screening 4 5-15 [facility] Absolute lymphocyte countOrd ered By: Violetta Jones on 05-11-2023 Lymphocytes Auto (Unsp spec) [#/Vol] 1.77 10*3/uL 0.83-4.51 [facility] Basophil percentageOrdered B y: Violetta Jones on 05-11-2023 Basophils/100 WBC (Bld) 0.6 % 0-1 [facility] Eosinophils/100 WBC (Bld) 1.5 % 0-5 [facility] Neutrophils (Bld) [#/Vol] 11.2 10*3/uL 2.0-7.7 [facility] Neutrophils/100 WBC (Bld) 78.0 % 47-70 [facility] WBC (Bld) [#/Vol] 14.4 10*3/uL 4.4-11.0 [facility] Blood erythrocytes count (nu mber/volume)Ordered By: Violetta Jones on 05-11-2023 RBC (Bld) [#/Vol] 4.02 10*6/uL 4.2-5.4 [facility] Blood hemoglobin measurement (mass/volume)Ordered By: Violetta Jones on 05-11-2023 Hemoglobin (Bld) [Mass/Vol] 11.2 g/dL 12.0-15.0 [facility] Blood lymphocytes/100 leukoc ytesOrdered By: Violetta Jones on 05-11-2023 Lymphocytes/100 WBC (Bld) 12.3 % 19-41 [facility] Blood monocytes/100 leukocyt esOrdered By: Violetta Jones on 05-11-2023 Monocytes/100 WBC (Bld) 7.2 % 0-10 [facility] Blood platelet mean volumeOr dered By: Violetta Jones on 05-11-2023 Platelet mean volume (Bld) [Entitic vol] 11.6 fL 6.2-12.0 [facility] Determination of erythrocyte mean corpuscular volume (MCV)Ordered By: Violetta Jones on 05-11-2023 MCV (RBC) [Entitic vol] 85.8 fL 81-99 [facility] Hematocrit Auto (Bld) [Volum e fraction]Ordered By: Violetta Jones on 05-11-2023 Hematocrit (Bld) [Volume fraction] 34.5 % 37-47 [facility] - Hematology and Cell countsOrdered By: Violetta Jones on 05-11-2023 Erythrocyte distribution width (RBC) [Entitic vol] 41.6 fL 35.1-43.9 [facility] Erythrocyte distribution width (RBC) [Ratio] 13.3 % 11.6-14.6 [facility] Immature granulocytes/100 WBC (Bld) 0.400 % 0.0-0.9 [facility] Comment on above: IG% - Immature Granu locytes (promyelocytes, myelocytes and metamyelocytes) > 1% indicates that a LEFT SHIFT is Present. MCH (RBC) [Entitic mass] 27.9 pg 27.0-32.0 [facility] Nucleated RBC/100 WBC (Bld) [Ratio] 0 % 0-5 [facility] MCHC Auto (RBC) [Mass/Vol]Or dered By: Violetta Jones on 05-11-2023 MCHC (RBC) [Mass/Vol] 32.5 g/dL 32-36 [facility] Platelets bldOrdered By: Benjamin Jones on 05-11-2023 Platelets (Bld) [#/Vol] 449 10*3/uL 150-450 [facility] Absolute lymphocyte countOrd ered By: Violetta Jones on 05-10-2023 Lymphocytes Auto (Unsp spec) [#/Vol] 2.10 10*3/uL 0.83-4.51 [facility] Basophil percentageOrdered B y: Violetta Jones on 05-10-2023 Basophils/100 WBC (Bld) 0.6 % 0-1 [facility] Chloride [Moles/Vol] 106 mmol/L 98-107 [facility] Eosinophils/100 WBC (Bld) 3.7 % 0-5 [facility] Glucose [Mass/Vol] 99 mg/dL 74-106 [facility] Neutrophils (Bld) [#/Vol] 11.8 10*3/uL 2.0-7.7 [facility] Neutrophils/100 WBC (Bld) 75.5 % 47-70 [facility] Potassium [Moles/Vol] 3.9 mmol/L 3.5-5.1 [facility] Sodium [Moles/Vol] 138 mmol/L 136-145 [facility] WBC (Bld) [#/Vol] 15.6 10*3/uL 4.4-11.0 [facility] Blood erythrocytes count (nu mber/volume)Ordered By: Violetta Jones on 05-10-2023 RBC (Bld) [#/Vol] 4.32 10*6/uL 4.2-5.4 [facility] Blood hemoglobin measurement (mass/volume)Ordered By: Violetta Jones on 05-10-2023 Hemoglobin (Bld) [Mass/Vol] 12.1 g/dL 12.0-15.0 [facility] Blood lymphocytes/100 leukoc ytesOrdered By: Violetta Jones on 05-10-2023 Lymphocytes/100 WBC (Bld) 13.5 % 19-41 [facility] Blood monocytes/100 leukocyt esOrdered By: Violetta Jones on 05-10-2023 Monocytes/100 WBC (Bld) 6.2 % 0-10 [facility] Blood platelet mean volumeOr dered By: Violetta Jones on 05-10-2023 Platelet mean volume (Bld) [Entitic vol] 12.1 fL 6.2-12.0 [facility] Determination of erythrocyte mean corpuscular volume (MCV)Ordered By: Violetta Jones on 05-10-2023 MCV (RBC) [Entitic vol] 87.7 fL 81-99 [facility] Hematocrit Auto (Bld) [Volum e fraction]Ordered By: Violetta Jones on 05-10-2023 Hematocrit (Bld) [Volume fraction] 37.9 % 37-47 [facility] Laboratory - Chemistry and C hemistry - challengeOrdered By: Violetta Jones on 05-10-2023 CO2 [Moles/Vol] 23.0 mmol/L 21.0-32.0 [facility] Magnesium [Mass/Vol] 2.5 mg/dL 1.6-2.6 [facility] Urea nitrogen/Creatinine [Mass ratio] 18.9 mg/mg -20 [facility] Laboratory - Hematology and Cell countsOrdered By: Violetta Jones on 05-10-2023 Erythrocyte distribution width (RBC) [Entitic vol] 43.1 fL 35.1-43.9 [facility] Erythrocyte distribution width (RBC) [Ratio] 13.3 % 11.6-14.6 [facility] Immature granulocytes/100 WBC (Bld) 0.500 % 0.0-0.9 [facility] Comment on above: IG% - Immature Granu locytes (promyelocytes, myelocytes and metamyelocytes) > 1% indicates that a LEFT SHIFT is Present. MCH (RBC) [Entitic mass] 28.0 pg 27.0-32.0 [facility] Nucleated RBC/100 WBC (Bld) [Ratio] 0 % 0-5 [facility] MCHC Auto (RBC) [Mass/Vol]Or dered By: Violetta Jones on 05-10-2023 MCHC (RBC) [Mass/Vol] 31.9 g/dL 32-36 [facility] No Panel InformationOrdered By: Violetta Jones on 05-10-2023 Estimated GFR (MDRD) Amer 59 mL/min >60 [facility] Comment on above: GFR Calc Estimated GFR (MDRD) Non-Af Amer 49 mL/min >60 [facility] Comment on above: Non- GFR Calc Platelets bldOrdered By: Benjamin Jones on 05-10-2023 Platelets (Bld) [#/Vol] 517 10*3/uL 150-450 [facility] Serum or plasma calcium bentley urement (mass/volume)Ordered By: Violetta Jones on 05-10-2023 Calcium [Mass/Vol] 9.7 mg/dL 8.5-10.1 [facility] Serum or plasma creatinine m easurement (mass/volume)Ordered By: Violetta Jones on 05-10-2023 Creatinine [Mass/Vol] 1.22 mg/dL 0.55-1.02 [facility] Comment on above: The validity of the calculated GFR & GFRAA in patients over 70 years has not been determined. Clinical correlation is essential. Serum or plasma urea nitroge n measurement (mass/volume)Ordered By: Violetta Jones on 05-10-2023 Urea nitrogen [Mass/Vol] 23 mg/dL 7-18 [facility] Thin prep Papanicolaou smear with manual screeningOrdered By: Violetta Jones on 05-10-2023 Thin prep Papanicolaou smear with manual screening 9 -15 [facility] Basophil percentageOrdered B y: Violetta Jones on 05-07-2023 Basophil percentage 0-5 SEEN /hpf 0-5 [facility] Bilirubin Test strip Ql (U)O rdered By: Violetta Jones on 05-07-2023 Bilirubin Ql (U) Negative Negative [facility] Culture, urineOrdered By: Yimi Jones on 05-07-2023 Bacteria identified Cx Nom (U) Enterococcus faecalis [facility] Ketones Test strip Ql (U)Ord ered By: Violetta Jones on 05-07-2023 Ketones Ql (U) Negative Negative [facility] Mucus LM Ql (Urine sed)Order ed By: Violetta Jones on 05-07-2023 Mucus Ql (Urine sed) 0 SEEN /hpf [facility] Nitrite Test strip Ql (U)Ord ered By: Violetta Jones on 05-07-2023 Nitrite Ql (U) Negative Negative [facility] Protein Test strip Ql (U)Ord ered By: Violetta Jones on 05-07-2023 Protein Ql (U) Negative Negative [facility] Squamous epithelial cells de tection in urine sediment by light microscopyOrdered By: Violetta Jones on 05-07-2023 Epithelial cells.squamous LM Ql (Urine sed) 0 SEEN /hpf 5-10 [facility] Urine blood detectionOrdered By: Violetta Jones on 05-07-2023 RBC Ql (U) Negative Negative [facility] RBC Ql (U) 0 SEEN /hpf 0-5 [facility] Urine clarityOrdered By: Benjamin Jones on 05-07-2023 Clarity (U) Clear Clear [facility] Urine color determinationOrd ered By: Violetta Jones on 05-07-2023 Color (U) Yellow Yellow [facility] Urine glucose detectionOrder ed By: Violetta Jones on 05-07-2023 Glucose Ql (U) Normal mg/dl Normal [facility] Urine leukocyte esterase det ection by dipstickOrdered By: Violetta Jones on 05-07-2023 Leukocyte esterase Test strip Ql (U) 25 /ul Negative [facility] Urine pHOrdered By: Violetta carter on 05-07-2023 pH (U) 7.0 [pH] 5.0 - 8.0 [facility] Urine sediment bacteria coun t by microscopy (number/high power field)Ordered By: Violetta Jones on 05-07-2023 Bacteria LM.HPF (Urine sed) [#/Area] 0 /[HPF] None Seen [facility] Urine specific gravity measu rementOrdered By: Violetta Jones on 05-07-2023 Specific gravity (U) [Rel density] 1.005 1.002-1.030 [facility] Urobilinogen Auto test strip Ql (U)Ordered By: Violetta Jones on 05-07-2023 Urobilinogen Ql (U) Normal mg/dl Normal [facility] Absolute lymphocyte countOrd ered By: Ronnie Fritz on 05-03-2023 Lymphocytes Auto (Unsp spec) [#/Vol] 2.56 10*3/uL 0.83-4.51 [facility] Basophil percentageOrdered B y: Ronnie Fritz on 05-03-2023 Basophils/100 WBC (Bld) 1.0 % 0-1 [facility] Chloride [Moles/Vol] 108 mmol/L 98-107 [facility] Eosinophils/100 WBC (Bld) 3.7 % 0-5 [facility] Glucose [Mass/Vol] 88 mg/dL 74-106 [facility] Neutrophils (Bld) [#/Vol] 8.4 10*3/uL 2.0-7.7 [facility] Neutrophils/100 WBC (Bld) 67.5 % 47-70 [facility] Potassium [Moles/Vol] 4.0 mmol/L 3.5-5.1 [facility] Sodium [Moles/Vol] 140 mmol/L 136-145 [facility] WBC (Bld) [#/Vol] 12.5 10*3/uL 4.4-11.0 [facility] Blood erythrocytes count (nu mber/volume)Ordered By: Ronnie Fritz on 05-03-2023 RBC (Bld) [#/Vol] 3.97 10*6/uL 4.2-5.4 [facility] Blood hemoglobin measurement (mass/volume)Ordered By: Ronnie Fritz on 05-03-2023 Hemoglobin (Bld) [Mass/Vol] 11.0 g/dL 12.0-15.0 [facility] Blood lymphocytes/100 leukoc ytesOrdered By: Ronnie Fritz on 05-03-2023 Lymphocytes/100 WBC (Bld) 20.5 % 19-41 [facility] Blood monocytes/100 leukocyt esOrdered By: Ronnie Fritz on 05-03-2023 Monocytes/100 WBC (Bld) 7.0 % 0-10 [facility] Blood platelet mean volumeOr dered By: Ronnie Fritz on 05-03-2023 Platelet mean volume (Bld) [Entitic vol] 12.3 fL 6.2-12.0 [facility] Determination of erythrocyte mean corpuscular volume (MCV)Ordered By: Ronnie Fritz on 05-03-2023 MCV (RBC) [Entitic vol] 89.4 fL 81-99 [facility] Hematocrit Auto (Bld) [Volum e fraction]Ordered By: Ronnie Fritz on 05-03-2023 Hematocrit (Bld) [Volume fraction] 35.5 % 37-47 [facility] Laboratory - Chemistry and C hemistry - challengeOrdered By: Ronnie Fritz on 05-03-2023 CO2 [Moles/Vol] 25.0 mmol/L 21.0-32.0 [facility] Magnesium [Mass/Vol] 2.3 mg/dL 1.6-2.6 [facility] Urea nitrogen/Creatinine [Mass ratio] 20.3 mg/mg 10-20 [facility] Laboratory - Hematology and Cell countsOrdered By: Ronnie Fritz on 05-03-2023 Erythrocyte distribution width (RBC) [Entitic vol] 44.6 fL 35.1-43.9 [facility] Erythrocyte distribution width (RBC) [Ratio] 13.6 % 11.6-14.6 [facility] Immature granulocytes/100 WBC (Bld) 0.300 % 0.0-0.9 [facility] Comment on above: IG% - Immature Granu locytes (promyelocytes, myelocytes and metamyelocytes) > 1% indicates that a LEFT SHIFT is Present. MCH (RBC) [Entitic mass] 27.7 pg 27.0-32.0 [facility] Nucleated RBC/100 WBC (Bld) [Ratio] 0 % 0-5 [facility] MCHC Auto (RBC) [Mass/Vol]Or dered By: Ronnie Fritz on 05-03-2023 MCHC (RBC) [Mass/Vol] 31.0 g/dL 32-36 [facility] No Panel InformationOrdered By: Ronnie Fritz on 05-03-2023 Estimated GFR (MDRD) Amer 51 mL/min >60 [facility] Comment on above: GFR Calc Estimated GFR (MDRD) Non-Af Amer 42 mL/min >60 [facility] Comment on above: Non- GFR Calc Platelets bldOrdered By: Malaika Fritz on 05-03-2023 Platelets (Bld) [#/Vol] 470 10*3/uL 150-450 [facility] Serum or plasma calcium bentley urement (mass/volume)Ordered By: Ronnie Fritz on 05-03-2023 Calcium [Mass/Vol] 9.2 mg/dL 8.5-10.1 [facility] Serum or plasma creatinine m easurement (mass/volume)Ordered By: Ronnie Fritz on 05-03-2023 Creatinine [Mass/Vol] 1.38 mg/dL 0.55-1.02 [facility] Comment on above: The validity of the calculated GFR & GFRAA in patients over 70 years has not been determined. Clinical correlation is essential. Serum or plasma urea nitroge n measurement (mass/volume)Ordered By: Ronnie Fritz on 05-03-2023 Urea nitrogen [Mass/Vol] 28 mg/dL 7-18 [facility] Thin prep Papanicolaou smear with manual screeningOrdered By: Ronnie Fritz on 05-03-2023 Thin prep Papanicolaou smear with manual screening 7 5-15 [facility] Basophil percentageOrdered B y: [facility] on 04-29-2023 Bilirubin [Mass/Vol] 0.30 mg/dL 0.20-1.00 [facility] Comment on above: For patients on eltr ombopag therapy, use of Dimension [place] TBIL is not recommended. Chloride [Moles/Vol] 109 mmol/L 98-107 [facility] Cholesterol [Mass/Vol] 140 mg/dL <200 [facility] Comment on above: <200 mg/dL Desirable 200-240 mg/dL Borderline >240 mg/dL High Risk Glucose [Mass/Vol] 98 mg/dL 74-106 [facility] Potassium [Moles/Vol] 3.7 mmol/L 3.5-5.1 [facility] Protein [Mass/Vol] 7.0 g/dL 6.4-8.2 [facility] Sodium [Moles/Vol] 141 mmol/L 136-145 [facility] Triglyceride [Mass/Vol] 124 mg/dL <199 [facility] Comment on above: The drugs N-Acetylcy steine and Metamizole may falsely depress this assay.Serum Triglycerides Reference Interval Normal <150 mg/dL Borderline high 150 - 199 mg/dL High 200 - 499 mg/dL Very High > or = 500 mg/dL WBC (Bld) [#/Vol] 13.3 10*3/uL 4.4-11.0 [facility] Blood erythrocytes count (nu mber/volume)Ordered By: [facility] on 04-29-2023 RBC (Bld) [#/Vol] 4.17 10*6/uL 4.2-5.4 [facility] Blood hemoglobin measurement (mass/volume)Ordered By: [facility] on 04-29-2023 Hemoglobin (Bld) [Mass/Vol] 11.7 g/dL 12.0-15.0 [facility] Blood platelet mean volumeOr dered By: [facility] on 04-29-2023 Platelet mean volume (Bld) [Entitic vol] 12.3 fL 6.2-12.0 [facility] Determination of erythrocyte mean corpuscular volume (MCV)Ordered By: [facility] on 04-29-2023 MCV (RBC) [Entitic vol] 89.9 fL 81-99 [facility] Hematocrit Auto (Bld) [Volum e fraction]Ordered By: [facility] on 04-29-2023 Hematocrit (Bld) [Volume fraction] 37.5 % 37-47 [facility] Laboratory - Chemistry and C hemistry - challengeOrdered By: [facility] on 04-29-2023 ALP [Catalytic activity/Vol] 39 U/L 45-117 [facility] ALT [Catalytic activity/Vol] 15 U/L 13-56 [facility] CO2 [Moles/Vol] 26.0 mmol/L 21.0-32.0 [facility] Cobalamin (Vitamin B12) [Mass/Vol] 653 pg/mL 211-911 [facility] Globulin (S) [Mass/Vol] 4.1 g/dL 2.2-4.2 [facility] Magnesium [Mass/Vol] 2.4 mg/dL 1.6-2.6 [facility] Urea nitrogen/Creatinine [Mass ratio] 11.7 mg/mg 10-20 [facility] Laboratory - Hematology and Cell countsOrdered By: [facility] on 04-29-2023 Erythrocyte distribution width (RBC) [Entitic vol] 45.1 fL 35.1-43.9 [facility] Erythrocyte distribution width (RBC) [Ratio] 13.9 % 11.6-14.6 [facility] MCH (RBC) [Entitic mass] 28.1 pg 27.0-32.0 [facility] MCHC Auto (RBC) [Mass/Vol]Or dered By: [facility] on 04-29-2023 MCHC (RBC) [Mass/Vol] 31.2 g/dL 32-36 [facility] No Panel InformationOrdered By: [facility] on 04-29-2023 Estimated GFR (MDRD) Amer 56 mL/min >60 [facility] Comment on above: GFR Calc Estimated GFR (MDRD) Non-Af Amer 46 mL/min >60 [facility] Comment on above: Non- GFR Calc Thyroid Stimulating Hormone (TSH) 1.85 uIU/mL 0.358-3.74 [facility] Vitamin D 25-Hydroxy 42.4 ng/mL [facility] Comment on above: Vitamin D 25(OH) Sta tus Range Deficiency <20 ng/mL (50nmol/L) Insufficiency 20 - 30 ng/mL (50 - 75 nmol/L) Sufficiency 30 - 100 ng/mL (75 - 250 nmol/L) Toxicity >100 ng/mL (>250 nmol/L) Platelets bldOrdered By: [facility] on 04-29-[facility]23 Platelets (Bld) [#/Vol] 391 10*3/uL 150-450 [facility] Serum or plasma albumin bentley urement (mass/volume)Ordered By: [facility] on 04-29-2023 Albumin [Mass/Vol] 2.9 g/dL 3.2-5.0 [facility] Serum or plasma albumin/glob ulin mass ratioOrdered By: [facility] on 04-29-2023 Albumin/Globulin [Mass ratio] 0.7 {ratio} 0.9-2.4 [facility] Serum or plasma calcium bentley urement (mass/volume)Ordered By: [facility] on 04-29-2023 Calcium [Mass/Vol] 9.2 mg/dL 8.5-10.1 [facility] Serum or plasma cholesterol in HDL measurement (mass/volume)Ordered By: [facility] on 04-29-2023 Cholesterol in HDL [Mass/Vol] 42 mg/dL >40 [facility] Comment on above: The drugs N-Acetylcy steine and Metamizole may falsely depress this assay. Reference Range HDL <40 mg/dL Low HDL Cholesterol HDL >or= 60 mg/dL High HDL Cholesterol Serum or plasma cholesterol in VLDL measurement (mass/volume)Ordered By: [facility] on 04-29-2023 Cholesterol in VLDL [Mass/Vol] 25 mg/dL 5-40 [facility] Serum or plasma creatinine m easurement (mass/volume)Ordered By: [facility] on 04-29-2023 Creatinine [Mass/Vol] 1.28 mg/dL 0.55-1.02 [facility] Comment on above: The validity of the calculated GFR & GFRAA in patients over 70 years has not been determined. Clinical correlation is essential. Serum or plasma low density lipoprotein (LDL) cholesterol measurement (mass/volume)Ordered By: [facility] on 04-29-2023 Cholesterol in LDL [Mass/Vol] 73 mg/dL 0-130 [facility] Serum or plasma urea nitroge n measurement (mass/volume)Ordered By: [facility] on 04-29-2023 Urea nitrogen [Mass/Vol] 15 mg/dL 7-18 [facility] Thin prep Papanicolaou smear with manual screeningOrdered By: [facility] on 11-09-2023 Thin prep Papanicolaou smear with manual screening 11 U/L 15-37 [facility] Thin prep Papanicolaou smear with manual screening 6 5-15 [facility] Glucose Glucometer (BldC) [M ass/Vol]Ordered By: Rad Baker on 04-27-2023 Glucose [Mass/Vol] 102 mg/dL 74-106 [facility] Comment on above: MANAGEMENT OF PATIEN T CARE PER NURSING PROTOCOL Absolute lymphocyte countOrd ered By: Jeison Lamas on 04-26-2023 Lymphocytes Auto (Unsp spec) [#/Vol] 1.37 10*3/uL 0.83-4.51 [facility] Basophil percentageOrdered B y: Jeison Lamas on 04-26-2023 Basophils/100 WBC (Bld) 0.5 % 0-1 [facility] Chloride [Moles/Vol] 111 mmol/L 98-107 [facility] Eosinophils/100 WBC (Bld) 3.3 % 0-5 [facility] Glucose [Mass/Vol] 110 mg/dL 74-106 [facility] Comment on above: Fasting Glucose resu lt from 100 to 125 mg/dL suggests IMPAIRED HOMEOSTASIS per A.D.A. criteria. Neutrophils (Bld) [#/Vol] 11.6 10*3/uL 2.0-7.7 [facility] Neutrophils/100 WBC (Bld) 77.6 % 47-70 [facility] Potassium [Moles/Vol] 3.5 mmol/L 3.5-5.1 [facility] Sodium [Moles/Vol] 141 mmol/L 136-145 [facility] WBC (Bld) [#/Vol] 15.0 10*3/uL 4.4-11.0 [facility] Blood erythrocytes count (nu mber/volume)Ordered By: Jeison Lamas on 04-26-2023 RBC (Bld) [#/Vol] 3.70 10*6/uL 4.2-5.4 [facility] Blood hemoglobin measurement (mass/volume)Ordered By: Jeison Lamas on 04-26-2023 Hemoglobin (Bld) [Mass/Vol] 10.4 g/dL 12.0-15.0 [facility] Blood lymphocytes/100 leukoc ytesOrdered By: Jeison Lamas on 04-26-2023 Lymphocytes/100 WBC (Bld) 9.2 % 19-41 [facility] Blood monocytes/100 leukocyt esOrdered By: Jeison Lamas on 04-26-2023 Monocytes/100 WBC (Bld) 8.8 % 0-10 [facility] Blood platelet mean volumeOr dered By: Jeison Lamas on 04-26-2023 Platelet mean volume (Bld) [Entitic vol] 12.2 fL 6.2-12.0 [facility] Determination of erythrocyte mean corpuscular volume (MCV)Ordered By: Jeison Lamas on 04-26-2023 MCV (RBC) [Entitic vol] 88.4 fL 81-99 [facility] Hematocrit Auto (Bld) [Volum e fraction]Ordered By: Jeison Lamas on 04-26-2023 Hematocrit (Bld) [Volume fraction] 32.7 % 37-47 [facility] Laboratory - Chemistry and C hemistry - challengeOrdered By: Jeison Lamas on 04-26-2023 CO2 [Moles/Vol] 24.0 mmol/L 21.0-32.0 [facility] Urea nitrogen/Creatinine [Mass ratio] 12.3 mg/mg 10-20 [facility] Laboratory - Hematology and Cell countsOrdered By: Jeison Lamas on 04-26-2023 Erythrocyte distribution width (RBC) [Entitic vol] 42.8 fL 35.1-43.9 [facility] Erythrocyte distribution width (RBC) [Ratio] 13.3 % 11.6-14.6 [facility] Immature granulocytes/100 WBC (Bld) 0.600 % 0.0-0.9 [facility] Comment on above: IG% - Immature Granu locytes (promyelocytes, myelocytes and metamyelocytes) > 1% indicates that a LEFT SHIFT is Present. MCH (RBC) [Entitic mass] 28.1 pg 27.0-32.0 [facility] Nucleated RBC/100 WBC (Bld) [Ratio] 0 % 0-5 [facility] MCHC Auto (RBC) [Mass/Vol]Or dered By: Jeison Lamas on 04-26-2023 MCHC (RBC) [Mass/Vol] 31.8 g/dL 32-36 [facility] No Panel InformationOrdered By: Jeison Lamas on 04-26-2023 Estimated Creatinine Clearance Calc 52.39 ml/min [facility] Estimated GFR (MDRD) Amer 69 mL/min >60 [facility] Comment on above: GFR Calc Estimated GFR (MDRD) Non-Af Amer 57 mL/min >60 [facility] Comment on above: Non- GFR Calc Platelets bldOrdered By: Franklyn Lamas on 04-26-2023 Platelets (Bld) [#/Vol] 321 10*3/uL 150-450 [facility] Serum or plasma calcium bentley urement (mass/volume)Ordered By: Jeison Lamas on 04-26-2023 Calcium [Mass/Vol] 8.8 mg/dL 8.5-10.1 [facility] Serum or plasma creatinine m easurement (mass/volume)Ordered By: Jeison Lamas on 04-26-2023 Creatinine [Mass/Vol] 1.06 mg/dL 0.55-1.02 [facility] Comment on above: The validity of the calculated GFR & GFRAA in patients over 70 years has not been determined. Clinical correlation is essential. Serum or plasma urea nitroge n measurement (mass/volume)Ordered By: Jeison Lamas on 04-26-2023 Urea nitrogen [Mass/Vol] 13 mg/dL 7-18 [facility] Thin prep Papanicolaou smear with manual screeningOrdered By: Jeison Lamas on 04-26-2023 Thin prep Papanicolaou smear with manual screening 6 5-15 [facility] Laboratory - Drug toxicology Ordered By: Gay Pantoja on 04-22-2023 Amphetamines Ql (U) Negative <1000 ng/mL [facility] Benzodiazepines Ql (U) Negative < 200 ng/mL [facility] Cannabinoids Screen Ql (U) Positive < 50 ng/mL [facility] Cocaine Ql (U) Negative < 300 ng/mL [facility] Opiates Ql (U) Positive < 300 ng/mL [facility] No Panel InformationOrdered By: Gay Pantoja on 04-22-2023 MDMA (Ecstasy) Screen Negative < 500 ng/mL [facility] Urine Barbiturates Screen Negative < 200 ng/mL [facility] Urine Drug Screen Comment [facility] Comment on above: CONFIRMATORY TESTING FOR ALL POSITIVE URINE DRUG SCREENRESULTS WILL ONLY BE SENT OUT UPON PHYSICIAN ORDER. VISTA Urine Drug Screen methods provide only preliminaryanalytical test results. A more specific alternate chemicalmethod must be used in order to obtain a confirmedanalytical result. Gas chromatography/mass spectrometery(GC/MS) is the preferred confirmatory method. Clinicalconsideration and professional judgement should be appliedto any drug of abuse test result, particularly whenpreliminary positive results are used. URINE TCA TESTING MUST BE ORDERED SEPARATELY. USE TESTMNEMONIC: [facility] Urine Methadone Screen Negative < 300 ng/mL [facility] Urine phencyclidine (PCP) de tectionOrdered By: Gay Pantoja on 04-22-2023 Phencyclidine Ql (U) Negative < 25 ng/mL [facility] Laboratory - Chemistry and C hemistry - challengeOrdered By: Erik Pineda on 04-20-2023 Magnesium [Mass/Vol] 2.5 mg/dL 1.6-2.6 [facility] Basophil percentageOrdered B y: Hakeem Bolton on 04-18-2023 Bilirubin [Mass/Vol] 0.50 mg/dL 0.20-1.00 [facility] Comment on above: For patients on eltr ombopag therapy, use of Dimension [place] TBIL is not recommended. Protein [Mass/Vol] 8.0 g/dL 6.4-8.2 [facility] Laboratory - Chemistry and C hemistry - challengeOrdered By: Hakeem Bolton on 04-18-2023 ALP [Catalytic activity/Vol] 50 U/L 45-117 [facility] ALT [Catalytic activity/Vol] 25 U/L 13-56 [facility] Globulin (S) [Mass/Vol] 4.3 g/dL 2.2-4.2 [facility] No Panel InformationOrdered By: Hakeem Bolton on 04-18-2023 Vitamin D 25-Hydroxy 28.8 ng/mL [facility] Comment on above: Vitamin D 25(OH) Sta tus Range Deficiency <20 ng/mL (50nmol/L) Insufficiency 20 - 30 ng/mL (50 - 75 nmol/L) Sufficiency 30 - 100 ng/mL (75 - 250 nmol/L) Toxicity >100 ng/mL (>250 nmol/L) Serum or plasma albumin bentley urement (mass/volume)Ordered By: Hakeem Bolton on 04-18-2023 Albumin [Mass/Vol] 3.7 g/dL 3.2-5.0 [facility] Serum or plasma albumin/glob ulin mass ratioOrdered By: [facility] Albumin/Globulin [Mass ratio] 0.9 {ratio} 0.9-2.4 [facility] Thin prep Papanicolaou smear with manual screeningOrdered By: [facility]23 Thin prep Papanicolaou smear with manual screening 11 U/L 15-37 [facility] Absolute lymphocyte countOrd ered By: José Miguel Casanova on 04-17-2023 Lymphocytes Auto (Unsp spec) [#/Vol] 0.47 10*3/uL 0.83-4.51 [facility] Basophil percentageOrdered B y: José Miguel Casanova on 04-17-2023 Basophils/100 WBC (Bld) 0.2 % 0-1 [facility] Chloride [Moles/Vol] 106 mmol/L 98-107 [facility] Eosinophils/100 WBC (Bld) 0.0 % 0-5 [facility] Glucose [Mass/Vol] 138 mg/dL 74-106 [facility] Comment on above: Fasting Glucose resu lt greater than or equal to 126 mg/dL suggests DIABETES MELLITUS per A.D.A. criteria. Neutrophils (Bld) [#/Vol] 21.8 10*3/uL 2.0-7.7 [facility] Neutrophils/100 WBC (Bld) 93.2 % 47-70 [facility] Potassium [Moles/Vol] 3.2 mmol/L 3.5-5.1 [facility] Comment on above: Moderate Hemolysis, Result may be falsely increased. Sodium [Moles/Vol] 139 mmol/L 136-145 [facility] WBC (Bld) [#/Vol] 23.4 10*3/uL 4.4-11.0 [facility] Basophil percentage 0 SEEN /hpf 0-5 [facility] Bilirubin Test strip Ql (U)O rdered By: José Miguel Casanova on 04-17-2023 Bilirubin Ql (U) Negative Negative [facility] Blood erythrocytes count (nu mber/volume)Ordered By: José Miguel Casanova on 04-17-2023 RBC (Bld) [#/Vol] 4.96 10*6/uL 4.2-5.4 [facility] Blood hemoglobin measurement (mass/volume)Ordered By: José Miguel Casanova on 04-17-2023 Hemoglobin (Bld) [Mass/Vol] 13.9 g/dL 12.0-15.0 [facility] Blood lymphocytes/100 leukoc ytesOrdered By: José Miguel Casanova on 04-17-2023 Lymphocytes/100 WBC (Bld) 2.0 % 19-41 [facility] Blood manual differential co mment interpretation (narrative result)Ordered By: José Miguel Casanova on 04-17-2023 Manual differential comment Shadi (Bld) [Interp] SCANNED [facility] Comment on above: NEUTROPHILIA, LYMPHO PENIA NOTED Blood monocytes/100 leukocyt esOrdered By: José Miguel Casanova on 04-17-2023 Monocytes/100 WBC (Bld) 3.8 % 0-10 [facility] Blood platelet mean volumeOr dered By: José Miguel Casanova on 04-17-2023 Platelet mean volume (Bld) [Entitic vol] 12.4 fL 6.2-12.0 [facility] Determination of erythrocyte mean corpuscular volume (MCV)Ordered By: José Miguel Casanova on 04-17-2023 MCV (RBC) [Entitic vol] 84.5 fL 81-99 [facility] Hematocrit Auto (Bld) [Volum e fraction]Ordered By: José Miguel Casanova on 04-17-2023 Hematocrit (Bld) [Volume fraction] 41.9 % 37-47 [facility] Ketones Test strip Ql (U)Ord ered By: José Miguel Casanova on 04-17-2023 Ketones Ql (U) Negative Negative [facility] Laboratory - Chemistry and C hemistry - challengeOrdered By: José Miguel Casanova on 04-17-2023 CO2 [Moles/Vol] 25.0 mmol/L 21.0-32.0 [facility] Urea nitrogen/Creatinine [Mass ratio] 12.2 mg/mg 10-20 [facility] Laboratory - Hematology and Cell countsOrdered By: José Miguel Casanova on 04-17-2023 Erythrocyte distribution width (RBC) [Entitic vol] 37.9 fL 35.1-43.9 [facility] Erythrocyte distribution width (RBC) [Ratio] 12.4 % 11.6-14.6 [facility] Immature granulocytes/100 WBC (Bld) 0.800 % 0.0-0.9 [facility] Comment on above: IG% - Immature Granu locytes (promyelocytes, myelocytes and metamyelocytes) > 1% indicates that a LEFT SHIFT is Present. MCH (RBC) [Entitic mass] 28.0 pg 27.0-32.0 [facility] Nucleated RBC/100 WBC (Bld) [Ratio] 0 % 0-5 [facility] MCHC Auto (RBC) [Mass/Vol]Or dered By: José Miguel Casanova on 04-17-2023 MCHC (RBC) [Mass/Vol] 33.2 g/dL 32-36 [facility] Mucus LM Ql (Urine sed)Order ed By: José Miguel Casanova on 04-17-2023 Mucus Ql (Urine sed) 0 SEEN /hpf [facility] Nitrite Test strip Ql (U)Ord ered By: José Miguel Casanova on 04-17-2023 Nitrite Ql (U) Negative Negative [facility] No Panel InformationOrdered By: José Miguel Casanova on 04-17-2023 Estimated Creatinine Clearance Calc 42.20 ml/min [facility] Estimated GFR (MDRD) Amer 63 mL/min >60 [facility] Comment on above: GFR Calc Estimated GFR (MDRD) Non-Af Amer 52 mL/min >60 [facility] Comment on above: Non- GFR Calc Platelets bldOrdered By: Jaison Casanova on 04-17-2023 Platelets (Bld) [#/Vol] 261 10*3/uL 150-450 [facility] Protein Test strip Ql (U)Ord ered By: José Miguel Casanova on 04-17-2023 Protein Ql (U) 15 mg/dl Negative [facility] Serum or plasma calcium bentley urement (mass/volume)Ordered By: José Miguel Casanova on 04-17-2023 Calcium [Mass/Vol] 9.4 mg/dL 8.5-10.1 [facility] Serum or plasma creatinine m easurement (mass/volume)Ordered By: José Miguel Casanova on 04-17-2023 Creatinine [Mass/Vol] 1.15 mg/dL 0.55-1.02 [facility] Comment on above: The validity of the calculated GFR & GFRAA in patients over 70 years has not been determined. Clinical correlation is essential. Serum or plasma urea nitroge n measurement (mass/volume)Ordered By: José Miguel Casanova on 04-17-2023 Urea nitrogen [Mass/Vol] 14 mg/dL 7-18 [facility] Squamous epithelial cells de tection in urine sediment by light microscopyOrdered By: José Miguel Casanova on 04-17-2023 Epithelial cells.squamous LM Ql (Urine sed) 0 SEEN /hpf 5-10 [facility] Thin prep Papanicolaou smear with manual screeningOrdered By: José Miguel Casanova on 04-17-2023 Thin prep Papanicolaou smear with manual screening 8 5-15 [facility] Urine blood detectionOrdered By: José Miguel Casanova on 04-17-2023 RBC Ql (U) Negative Negative [facility] RBC Ql (U) 0 SEEN /hpf 0-5 [facility] Urine clarityOrdered By: Jaison Casanova on 04-17-2023 Clarity (U) Clear Clear [facility] Urine color determinationOrd ered By: José Miguel Casanova on 04-17-2023 Color (U) Yellow Yellow [facility] Urine glucose detectionOrder ed By: José Miguel Casanova on 04-17-2023 Glucose Ql (U) Normal mg/dl Normal [facility] Urine leukocyte esterase det ection by dipstickOrdered By: José Miguel Casanova on 04-17-2023 Leukocyte esterase Test strip Ql (U) Negative Negative [facility] Urine pHOrdered By: José Miguel Casanova on 04-17-2023 pH (U) 8.0 [pH] 5.0 - 8.0 [facility] Urine sediment bacteria coun t by microscopy (number/high power field)Ordered By: José Miguel Casanova on 04-17-2023 Bacteria LM.HPF (Urine sed) [#/Area] 0 /[HPF] None Seen [facility] Urine specific gravity measu rementOrdered By: José Miguel Casanova on 04-17-2023 Specific gravity (U) [Rel density] 1.010 1.002-1.030 [facility] Urobilinogen Auto test strip Ql (U)Ordered By: José Miguel Casanova on 04-17-2023 Urobilinogen Ql (U) Normal mg/dl Normal [facility] Absolute lymphocyte countOrd ered By: Dr. Alves on 10-20-2022 Lymphocytes Auto (Unsp spec) [#/Vol] 0.96 10*3/uL 0.83-4.51 [facility] Basophil percentageOrdered B y: Dr. Alves on 10-20-2022 Basophils/100 WBC (Bld) 0.7 % 0-1 [facility] Chloride [Moles/Vol] 109 mmol/L 98-107 [facility] Eosinophils/100 WBC (Bld) 7.3 % 0-5 [facility] Glucose [Mass/Vol] 92 mg/dL 74-106 [facility] Neutrophils (Bld) [#/Vol] 6.0 10*3/uL 2.0-7.7 [facility] Neutrophils/100 WBC (Bld) 71.4 % 47-70 [facility] Potassium [Moles/Vol] 3.8 mmol/L 3.5-5.1 [facility] Sodium [Moles/Vol] 140 mmol/L 136-145 [facility] WBC (Bld) [#/Vol] 8.4 10*3/uL 4.4-11.0 [facility] Blood erythrocytes count (nu mber/volume)Ordered By: Dr. Alves on 10-20-2022 RBC (Bld) [#/Vol] 4.37 10*6/uL 4.2-5.4 [facility] Blood hemoglobin measurement (mass/volume)Ordered By: Dr. Alves on 10-20-2022 Hemoglobin (Bld) [Mass/Vol] 12.2 g/dL 12.0-15.0 [facility] Blood lymphocytes/100 leukoc ytesOrdered By: Dr. Alves on 10-20-2022 Lymphocytes/100 WBC (Bld) 11.4 % 19-41 [facility] Blood monocytes/100 leukocyt esOrdered By: Dr. Alves on 10-20-2022 Monocytes/100 WBC (Bld) 9.0 % 0-10 [facility] Blood platelet mean volumeOr dered By: Dr. Alves on 10-20-2022 Platelet mean volume (Bld) [Entitic vol] 11.5 fL 6.2-12.0 [facility] COVID-19 virus antigen assay Ordered By: Roger Alves on 10-20-2022 SARS-CoV-2 (COVID-19) Ag IA.rapid Ql (Resp) [facility] COVID-19 virus antigen assay Ordered By: Dr. Alves on 10-20-2022 SARS-CoV-2 (COVID-19) Ag IA.rapid Ql (Resp) [facility] Determination of erythrocyte mean corpuscular volume (MCV)Ordered By: Dr. Alves on 10-20-2022 MCV (RBC) [Entitic vol] 86.0 fL 81-99 [facility] Hematocrit Auto (Bld) [Volum e fraction]Ordered By: Dr. Alves on 10-20-2022 Hematocrit (Bld) [Volume fraction] 37.6 % 37-47 [facility] INR in Blood by Coagulation assayOrdered By: Dr. Alves on 10-20-2022 INR Coag (Bld) [Relative time] 1.0 {INR} [facility] Laboratory - Chemistry and C hemistry - challengeOrdered By: Dr. Alves on 10-20-2022 CO2 [Moles/Vol] 24.0 mmol/L 21.0-32.0 [facility] Urea nitrogen/Creatinine [Mass ratio] 19.4 mg/mg 10-20 [facility] Laboratory - CoagulationOrde red By: Dr. Alves on 10-20-2022 PT Coag (PPP) [Time] 13.0 s 11.7-14.9 [facility] Laboratory - Hematology and Cell countsOrdered By: Dr. Alves on 10-20-2022 Erythrocyte distribution width (RBC) [Entitic vol] 39.8 fL 35.1-43.9 [facility] Erythrocyte distribution width (RBC) [Ratio] 12.7 % 11.6-14.6 [facility] Immature granulocytes/100 WBC (Bld) 0.200 % 0.0-0.9 [facility] Comment on above: IG% - Immature Granu locytes (promyelocytes, myelocytes and metamyelocytes) > 1% indicates that a LEFT SHIFT is Present. MCH (RBC) [Entitic mass] 27.9 pg 27.0-32.0 [facility] Nucleated RBC/100 WBC (Bld) [Ratio] 0 % 0-5 [facility] MCHC Auto (RBC) [Mass/Vol]Or dered By: Dr. Alves on 10-20-2022 MCHC (RBC) [Mass/Vol] 32.4 g/dL 32-36 [facility] No Panel InformationOrdered By: Dr. Alves on 10-20-2022 Estimated Creatinine Clearance Calc 39.14 ml/min [facility] Estimated GFR (MDRD) Amer 58 mL/min >60 [facility] Comment on above: GFR Calc Estimated GFR (MDRD) Non-Af Amer 48 mL/min >60 [facility] Comment on above: Non- GFR Calc Platelets bldOrdered By: Dr. Alves on 10-20-2022 Platelets (Bld) [#/Vol] 264 10*3/uL 150-450 [facility] Serum or plasma calcium bentley urement (mass/volume)Ordered By: Dr. Alves on 10-20-2022 Calcium [Mass/Vol] 8.7 mg/dL 8.5-10.1 [facility] Serum or plasma creatinine m easurement (mass/volume)Ordered By: Dr. Alves on 10-20-2022 Creatinine [Mass/Vol] 1.24 mg/dL 0.55-1.02 [facility] Comment on above: The validity of the calculated GFR & GFRAA in patients over 70 years has not been determined. Clinical correlation is essential. Serum or plasma urea nitroge n measurement (mass/volume)Ordered By: Dr. Alves on 10-20-2022 Urea nitrogen [Mass/Vol] 24 mg/dL 7-18 [facility] Thin prep Papanicolaou smear with manual screeningOrdered By: Dr. Alves on 10-20-2022 Thin prep Papanicolaou smear with manual screening 7 5-15 [facility] Basophil percentageOrdered B y: Dr. Bolton on 10-19-2022 Bilirubin [Mass/Vol] 0.30 mg/dL 0.20-1.00 [facility] Comment on above: For patients on eltr ombopag therapy, use of Dimension [place] TBIL is not recommended. Protein [Mass/Vol] 7.2 g/dL 6.4-8.2 [facility] Laboratory - Chemistry and C hemistry - challengeOrdered By: Dr. Bolton on 10-19-2022 ALP [Catalytic activity/Vol] 41 U/L 45-117 [facility] ALT [Catalytic activity/Vol] 16 U/L 13-56 [facility] Globulin (S) [Mass/Vol] 4.2 g/dL 2.2-4.2 [facility] Serum or plasma albumin bentley urement (mass/volume)Ordered By: Dr. Bolton on 10-19-2022 Albumin [Mass/Vol] 3.0 g/dL 3.2-5.0 [facility] Serum or plasma albumin/glob ulin mass ratioOrdered By: Dr. Bolton on 10-19-2022 Albumin/Globulin [Mass ratio] 0.7 {ratio} 0.9-2.4 [facility] Thin prep Papanicolaou smear with manual screeningOrdered By: Dr. Bolton on 10-19-2022 Thin prep Papanicolaou smear with manual screening 14 U/L 15-37 [facility] Absolute lymphocyte countOrd ered By: Dr. Gaxiola on 10-18-2022 Lymphocytes Auto (Unsp spec) [#/Vol] 2.18 10*3/uL 0.83-4.51 [facility] Basophil percentageOrdered B y: Dr. Gaxiola on 10-18-2022 Basophils/100 WBC (Bld) 0.6 % 0-1 [facility] Chloride [Moles/Vol] 108 mmol/L 98-107 [facility] Eosinophils/100 WBC (Bld) 1.4 % 0-5 [facility] Glucose [Mass/Vol] 128 mg/dL 74-106 [facility] Comment on above: Fasting Glucose resu lt greater than or equal to 126 mg/dL suggests DIABETES MELLITUS per A.D.A. criteria. Neutrophils (Bld) [#/Vol] 8.8 10*3/uL 2.0-7.7 [facility] Neutrophils/100 WBC (Bld) 72.2 % 47-70 [facility] Potassium [Moles/Vol] 3.5 mmol/L 3.5-5.1 [facility] Sodium [Moles/Vol] 138 mmol/L 136-145 [facility] WBC (Bld) [#/Vol] 12.2 10*3/uL 4.4-11.0 [facility] Blood erythrocytes count (nu mber/volume)Ordered By: Dr. Gaxiola on 10-18-2022 RBC (Bld) [#/Vol] 4.45 10*6/uL 4.2-5.4 [facility] Blood hemoglobin measurement (mass/volume)Ordered By: Dr. Gaxiola on 10-18-2022 Hemoglobin (Bld) [Mass/Vol] 12.6 g/dL 12.0-15.0 [facility] Blood lymphocytes/100 leukoc ytesOrdered By: Dr. Gaxiola on 10-18-2022 Lymphocytes/100 WBC (Bld) 17.9 % 19-41 [facility] Blood monocytes/100 leukocyt esOrdered By: Dr. Gaxiola on 10-18-2022 Monocytes/100 WBC (Bld) 7.5 % 0-10 [facility] Blood platelet mean volumeOr dered By: Dr. Gaxiola on 10-18-2022 Platelet mean volume (Bld) [Entitic vol] 11.4 fL 6.2-12.0 [facility] Determination of erythrocyte mean corpuscular volume (MCV)Ordered By: Dr. Gaxiola on 10-18-2022 MCV (RBC) [Entitic vol] 86.1 fL 81-99 [facility] Hematocrit Auto (Bld) [Volum e fraction]Ordered By: Dr. Gaxiola on 10-18-2022 Hematocrit (Bld) [Volume fraction] 38.3 % 37-47 [facility] INR in Blood by Coagulation assayOrdered By: Dr. Gaxiola on 10-18-2022 INR Coag (Bld) [Relative time] 1.0 {INR} [facility] Laboratory - Chemistry and C hemistry - challengeOrdered By: Dr. Gaxiola on 10-18-2022 CO2 [Moles/Vol] 25.0 mmol/L 21.0-32.0 [facility] Urea nitrogen/Creatinine [Mass ratio] 17.6 mg/mg 10-20 [facility] Laboratory - CoagulationOrde red By: Dr. Gaxiola on 10-18-2022 aPTT Coag (Bld) [Time] 25.8 s 24.1-36.2 [facility] PT Coag (PPP) [Time] 13.1 s 11.7-14.9 [facility] Laboratory - Hematology and Cell countsOrdered By: Dr. Gaxiola on 10-18-2022 Erythrocyte distribution width (RBC) [Entitic vol] 39.5 fL 35.1-43.9 [facility] Erythrocyte distribution width (RBC) [Ratio] 12.6 % 11.6-14.6 [facility] Immature granulocytes/100 WBC (Bld) 0.400 % 0.0-0.9 [facility] Comment on above: IG% - Immature Granu locytes (promyelocytes, myelocytes and metamyelocytes) > 1% indicates that a LEFT SHIFT is Present. MCH (RBC) [Entitic mass] 28.3 pg 27.0-32.0 [facility] Nucleated RBC/100 WBC (Bld) [Ratio] 0 % 0-5 [facility] MCHC Auto (RBC) [Mass/Vol]Or dered By: Dr. Gaxiola on 10-18-2022 MCHC (RBC) [Mass/Vol] 32.9 g/dL 32-36 [facility] No Panel InformationOrdered By: Dr. Gaxiola on 10-18-2022 Estimated Creatinine Clearance Calc 38.82 ml/min [facility] Estimated GFR (MDRD) Amer 57 mL/min >60 [facility] Comment on above: GFR Calc Estimated GFR (MDRD) Non-Af Amer 47 mL/min >60 [facility] Comment on above: Non- GFR Calc Troponin I High Sensitivity 7 pg/mL 3.0-54.0 [facility] Comment on above: Please Note: New Pamella t Units and Gender Specific Reference Ranges. For more information see Policy Stat Procedure [place] High Sensitivity Troponin (TNIH) and attachments. Platelets bldOrdered By: Dr. Gaxiola on 10-18-2022 Platelets (Bld) [#/Vol] 275 10*3/uL 150-450 [facility] Serum or plasma calcium bentley urement (mass/volume)Ordered By: Dr. Gaxiola on 10-18-2022 Calcium [Mass/Vol] 9.1 mg/dL 8.5-10.1 [facility] Serum or plasma creatinine m easurement (mass/volume)Ordered By: Dr. Gaxiola on 10-18-2022 Creatinine [Mass/Vol] 1.25 mg/dL 0.55-1.02 [facility] Comment on above: The validity of the calculated GFR & GFRAA in patients over 70 years has not been determined. Clinical correlation is essential. Serum or plasma urea nitroge n measurement (mass/volume)Ordered By: Dr. Gaxiola on 10-18-2022 Urea nitrogen [Mass/Vol] 22 mg/dL 7-18 [facility] Thin prep Papanicolaou smear with manual screeningOrdered By: Dr. Gaxiola on 10-18-2022 Thin prep Papanicolaou smear with manual screening 5 5-15 [facility] Laboratory - Drug toxicology Ordered By: Dr. Lamas on 09-26-2022 Amphetamines Ql (U) Positive <1000 ng/mL [facility] Benzodiazepines Ql (U) Negative < 200 ng/mL [facility] Cannabinoids Screen Ql (U) Positive < 50 ng/mL [facility] Cocaine Ql (U) Negative < 300 ng/mL [facility] Opiates Ql (U) Negative < 300 ng/mL [facility] No Panel InformationOrdered By: Dr. Lamas on 09-26-2022 MDMA (Ecstasy) Screen Negative < 500 ng/mL [facility] Urine Barbiturates Screen Negative < 200 ng/mL [facility] Urine Drug Screen Comment [facility] Comment on above: CONFIRMATORY TESTING FOR ALL POSITIVE URINE DRUG SCREENRESULTS WILL ONLY BE SENT OUT UPON PHYSICIAN ORDER. VISTA Urine Drug Screen methods provide only preliminaryanalytical test results. A more specific alternate chemicalmethod must be used in order to obtain a confirmedanalytical result. Gas chromatography/mass spectrometery(GC/MS) is the preferred confirmatory method. Clinicalconsideration and professional judgement should be appliedto any drug of abuse test result, particularly whenpreliminary positive results are used. URINE TCA TESTING MUST BE ORDERED SEPARATELY. USE TESTMNEMONIC: [facility] Urine Methadone Screen Negative < 300 ng/mL [facility] Urine phencyclidine (PCP) de tectionOrdered By: Dr. Lamas on 09-26-2022 Phencyclidine Ql (U) Negative < 25 ng/mL [facility] Absolute lymphocyte countOrd ered By: Dr. Lamas on 09-25-2022 Lymphocytes Auto (Unsp spec) [#/Vol] 1.01 10*3/uL 0.83-4.51 [facility] Basophil percentageOrdered B y: Dr. Lamas on 09-25-2022 Basophils/100 WBC (Bld) 1.1 % 0-1 [facility] Chloride [Moles/Vol] 109 mmol/L 98-107 [facility] Cholesterol [Mass/Vol] 144 mg/dL <200 [facility] Comment on above: <200 mg/dL Desirable 200-240 mg/dL Borderline >240 mg/dL High Risk Eosinophils/100 WBC (Bld) 5.5 % 0-5 [facility] Glucose [Mass/Vol] 92 mg/dL 74-106 [facility] Neutrophils (Bld) [#/Vol] 4.9 10*3/uL 2.0-7.7 [facility] Neutrophils/100 WBC (Bld) 69.5 % 47-70 [facility] Potassium [Moles/Vol] 3.7 mmol/L 3.5-5.1 [facility] Sodium [Moles/Vol] 139 mmol/L 136-145 [facility] Triglyceride [Mass/Vol] 63 mg/dL <199 [facility] Comment on above: The drugs N-Acetylcy steine and Metamizole may falsely depress this assay.Serum Triglycerides Reference Interval Normal <150 mg/dL Borderline high 150 - 199 mg/dL High 200 - 499 mg/dL Very High > or = 500 mg/dL WBC (Bld) [#/Vol] 7.1 10*3/uL 4.4-11.0 [facility] Blood erythrocytes count (nu mber/volume)Ordered By: Dr. Lamas on 09-25-2022 RBC (Bld) [#/Vol] 4.75 10*6/uL 4.2-5.4 [facility] Blood hemoglobin measurement (mass/volume)Ordered By: Dr. Lamas on 09-25-2022 Hemoglobin (Bld) [Mass/Vol] 13.0 g/dL 12.0-15.0 [facility] Blood lymphocytes/100 leukoc ytesOrdered By: Dr. Lamas on 09-25-2022 Lymphocytes/100 WBC (Bld) 14.3 % 19-41 [facility] Blood monocytes/100 leukocyt esOrdered By: Dr. Lamas on 09-25-2022 Monocytes/100 WBC (Bld) 9.3 % 0-10 [facility] Blood platelet mean volumeOr dered By: Dr. Lamas on 09-25-2022 Platelet mean volume (Bld) [Entitic vol] 11.5 fL 6.2-12.0 [facility] Determination of erythrocyte mean corpuscular volume (MCV)Ordered By: Dr. Lamas on 09-25-2022 MCV (RBC) [Entitic vol] 86.7 fL 81-99 [facility] Hematocrit Auto (Bld) [Volum e fraction]Ordered By: Dr. Lamas on 09-25-2022 Hematocrit (Bld) [Volume fraction] 41.2 % 37-47 [facility] Laboratory - Chemistry and C hemistry - challengeOrdered By: Dr. Alves on 09-25-2022 Cobalamin (Vitamin B12) [Mass/Vol] 678 pg/mL 211-911 [facility] Laboratory - Chemistry and C hemistry - challengeOrdered By: Dr. Lamas on 09-25-2022 CO2 [Moles/Vol] 25.0 mmol/L 21.0-32.0 [facility] Urea nitrogen/Creatinine [Mass ratio] 13.4 mg/mg 10-20 [facility] Laboratory - Hematology and Cell countsOrdered By: Dr. Lamas on 09-25-2022 Erythrocyte distribution width (RBC) [Entitic vol] 39.8 fL 35.1-43.9 [facility] Erythrocyte distribution width (RBC) [Ratio] 12.6 % 11.6-14.6 [facility] Immature granulocytes/100 WBC (Bld) 0.300 % 0.0-0.9 [facility] Comment on above: IG% - Immature Granu locytes (promyelocytes, myelocytes and metamyelocytes) > 1% indicates that a LEFT SHIFT is Present. MCH (RBC) [Entitic mass] 27.4 pg 27.0-32.0 [facility] Nucleated RBC/100 WBC (Bld) [Ratio] 0 % 0-5 [facility] MCHC Auto (RBC) [Mass/Vol]Or dered By: Dr. Lamas on 09-25-2022 MCHC (RBC) [Mass/Vol] 31.6 g/dL 32-36 [facility] No Panel InformationOrdered By: Dr. Lamas on 09-25-2022 Estimated Creatinine Clearance Calc 40.78 ml/min [facility] Estimated GFR (MDRD) Amer 61 mL/min >60 [facility] Comment on above: GFR Calc Estimated GFR (MDRD) Non-Af Amer 50 mL/min >60 [facility] Comment on above: Non- GFR Calc No Panel InformationOrdered By: Dr. Alves on 09-25-2022 Thyroid Stimulating Hormone (TSH) 1.03 uIU/mL 0.358-3.74 [facility] Platelets bldOrdered By: Dr. Lamas on 09-25-2022 Platelets (Bld) [#/Vol] 266 10*3/uL 150-450 [facility] Serum or plasma calcium bentley urement (mass/volume)Ordered By: Dr. Lamas on 09-25-2022 Calcium [Mass/Vol] 8.6 mg/dL 8.5-10.1 [facility] Serum or plasma cholesterol in HDL measurement (mass/volume)Ordered By: Dr. Lamas on 09-25-2022 Cholesterol in HDL [Mass/Vol] 53 mg/dL >40 [facility] Comment on above: The drugs N-Acetylcy steine and Metamizole may falsely depress this assay. Reference Range HDL <40 mg/dL Low HDL Cholesterol HDL >or= 60 mg/dL High HDL Cholesterol Serum or plasma cholesterol in VLDL measurement (mass/volume)Ordered By: Dr. Lamas on 09-25-2022 Cholesterol in VLDL [Mass/Vol] 13 mg/dL 5-40 [facility] Serum or plasma creatinine m easurement (mass/volume)Ordered By: Dr. Lamas on 09-25-2022 Creatinine [Mass/Vol] 1.19 mg/dL 0.55-1.02 [facility] Comment on above: The validity of the calculated GFR & GFRAA in patients over 70 years has not been determined. Clinical correlation is essential. Serum or plasma low density lipoprotein (LDL) cholesterol measurement (mass/volume)Ordered By: Dr. Lamas on 09-25-2022 Cholesterol in LDL [Mass/Vol] 78 mg/dL 0-130 [facility] Serum or plasma urea nitroge n measurement (mass/volume)Ordered By: Dr. Lamas on 09-25-2022 Urea nitrogen [Mass/Vol] 16 mg/dL 7-18 [facility] Thin prep Papanicolaou smear with manual screeningOrdered By: Dr. Lamas on 09-25-2022 Thin prep Papanicolaou smear with manual screening 5 5-15 [facility] Whole blood hemoglobin A1c/t otal hemoglobin ratio (mass fraction)Ordered By: Dr. Alves on 09-25-2022 HbA1c (Bld) [Mass fraction] 5.3 % 3.8-5.6 [facility] Comment on above: Normal < 5.7 % Predi abetic 5.7 - 6.4 % Diabetic >or= 6.5 % Please note range changes. Absolute lymphocyte countOrd ered By: Dr. Subramanian on 09-24-2022 Lymphocytes Auto (Unsp spec) [#/Vol] 2.52 10*3/uL 0.83-4.51 [facility] Basophil percentageOrdered B y: Dr. Subramanian on 09-24-2022 Basophils/100 WBC (Bld) 1.0 % 0-1 [facility] Chloride [Moles/Vol] 107 mmol/L 98-107 [facility] Eosinophils/100 WBC (Bld) 5.0 % 0-5 [facility] Glucose [Mass/Vol] 95 mg/dL 74-106 [facility] Neutrophils (Bld) [#/Vol] 5.4 10*3/uL 2.0-7.7 [facility] Neutrophils/100 WBC (Bld) 58.6 % 47-70 [facility] Potassium [Moles/Vol] 3.4 mmol/L 3.5-5.1 [facility] Sodium [Moles/Vol] 139 mmol/L 136-145 [facility] WBC (Bld) [#/Vol] 9.2 10*3/uL 4.4-11.0 [facility] Blood erythrocytes count (nu mber/volume)Ordered By: Dr. Subramanian on 09-24-2022 RBC (Bld) [#/Vol] 4.81 10*6/uL 4.2-5.4 [facility] Blood hemoglobin measurement (mass/volume)Ordered By: Dr. Subramanian on 09-24-2022 Hemoglobin (Bld) [Mass/Vol] 13.3 g/dL 12.0-15.0 [facility] Blood lymphocytes/100 leukoc ytesOrdered By: Dr. Subramanian on 09-24-2022 Lymphocytes/100 WBC (Bld) 27.5 % 19-41 [facility] Blood monocytes/100 leukocyt esOrdered By: Dr. Subramanian on 09-24-2022 Monocytes/100 WBC (Bld) 7.7 % 0-10 [facility] Blood platelet mean volumeOr dered By: Dr. Subramanian on 09-24-2022 Platelet mean volume (Bld) [Entitic vol] 11.9 fL 6.2-12.0 [facility] Determination of erythrocyte mean corpuscular volume (MCV)Ordered By: Dr. Subramanian on 09-24-2022 MCV (RBC) [Entitic vol] 86.7 fL 81-99 [facility] Hematocrit Auto (Bld) [Volum e fraction]Ordered By: Dr. Subramanian on 09-24-2022 Hematocrit (Bld) [Volume fraction] 41.7 % 37-47 [facility] INR in Blood by Coagulation assayOrdered By: Dr. Subramanian on 09-24-2022 INR Coag (Bld) [Relative time] 1.0 {INR} [facility] Laboratory - Chemistry and C hemistry - challengeOrdered By: Dr. Subramanian on 09-24-2022 CO2 [Moles/Vol] 26.0 mmol/L 21.0-32.0 [facility] Urea nitrogen/Creatinine [Mass ratio] 13.6 mg/mg 10-20 [facility] Laboratory - CoagulationOrde red By: Dr. Subramanian on 09-24-2022 aPTT Coag (Bld) [Time] 27.8 s 24.1-36.2 [facility] PT Coag (PPP) [Time] 13.0 s 11.7-14.9 [facility] Laboratory - Hematology and Cell countsOrdered By: Dr. Subramanian on 09-24-2022 Erythrocyte distribution width (RBC) [Entitic vol] 40.3 fL 35.1-43.9 [facility] Erythrocyte distribution width (RBC) [Ratio] 12.7 % 11.6-14.6 [facility] Immature granulocytes/100 WBC (Bld) 0.200 % 0.0-0.9 [facility] Comment on above: IG% - Immature Granu locytes (promyelocytes, myelocytes and metamyelocytes) > 1% indicates that a LEFT SHIFT is Present. MCH (RBC) [Entitic mass] 27.7 pg 27.0-32.0 [facility] Nucleated RBC/100 WBC (Bld) [Ratio] 0 % 0-5 [facility] MCHC Auto (RBC) [Mass/Vol]Or dered By: Dr. Subramanian on 09-24-2022 MCHC (RBC) [Mass/Vol] 31.9 g/dL 32-36 [facility] No Panel InformationOrdered By: Dr. Subramanian on 09-24-2022 Estimated Creatinine Clearance Calc 38.53 ml/min [facility] Estimated GFR (MDRD) Amer 54 mL/min >60 [facility] Comment on above: GFR Calc Estimated GFR (MDRD) Non-Af Amer 45 mL/min >60 [facility] Comment on above: Non- GFR Calc Troponin I High Sensitivity 12 pg/mL 3.0-54.0 [facility] Comment on above: Please Note: New Pamella t Units and Gender Specific Reference Ranges. For more information see Policy Stat Procedure [place] High Sensitivity Troponin (TNIH) and attachments. Platelets bldOrdered By: Dr. Subramanian on 09-24-2022 Platelets (Bld) [#/Vol] 322 10*3/uL 150-450 [facility] Serum or plasma calcium bentley urement (mass/volume)Ordered By: Dr. Subramanian on 09-24-2022 Calcium [Mass/Vol] 9.1 mg/dL 8.5-10.1 [facility] Serum or plasma creatinine m easurement (mass/volume)Ordered By: Dr. Subramanian on 09-24-2022 Creatinine [Mass/Vol] 1.32 mg/dL 0.55-1.02 [facility] Comment on above: The validity of the calculated GFR & GFRAA in patients over 70 years has not been determined. Clinical correlation is essential. Serum or plasma urea nitroge n measurement (mass/volume)Ordered By: Dr. Subramanian on 09-24-2022 Urea nitrogen [Mass/Vol] 18 mg/dL 7-18 [facility] Thin prep Papanicolaou smear with manual screeningOrdered By: Dr. Subramanian on 09-24-2022 Thin prep Papanicolaou smear with manual screening 6 5-15 [facility] Absolute lymphocyte countOrd ered By: Dr. Jones on 07-04-2022 Lymphocytes Auto (Unsp spec) [#/Vol] 2.18 10*3/uL 0.83-4.51 [facility] Basophil percentageOrdered B y: Dr. Jones on 07-04-2022 Basophils/100 WBC (Bld) 0.9 % 0-1 [facility] Chloride [Moles/Vol] 111 mmol/L 98-107 [facility] Eosinophils/100 WBC (Bld) 5.3 % 0-5 [facility] Glucose [Mass/Vol] 90 mg/dL 74-106 [facility] Neutrophils (Bld) [#/Vol] 4.7 10*3/uL 2.0-7.7 [facility] Neutrophils/100 WBC (Bld) 58.5 % 47-70 [facility] Potassium [Moles/Vol] 4.0 mmol/L 3.5-5.1 [facility] Sodium [Moles/Vol] 140 mmol/L 136-145 [facility] WBC (Bld) [#/Vol] 8.1 10*3/uL 4.4-11.0 [facility] Blood erythrocytes count (nu mber/volume)Ordered By: Dr. Jones on 07-04-2022 RBC (Bld) [#/Vol] 4.61 10*6/uL 4.2-5.4 [facility] Blood hemoglobin measurement (mass/volume)Ordered By: Dr. Jones on 07-04-2022 Hemoglobin (Bld) [Mass/Vol] 13.0 g/dL 12.0-15.0 [facility] Blood lymphocytes/100 leukoc ytesOrdered By: Dr. Jones on 07-04-2022 Lymphocytes/100 WBC (Bld) 26.9 % 19-41 [facility] Blood monocytes/100 leukocyt esOrdered By: Dr. Jones on 07-04-2022 Monocytes/100 WBC (Bld) 8.0 % 0-10 [facility] Blood platelet mean volumeOr dered By: Dr. Jones on 07-04-2022 Platelet mean volume (Bld) [Entitic vol] 11.5 fL 6.2-12.0 [facility] Determination of erythrocyte mean corpuscular volume (MCV)Ordered By: Dr. Jones on 07-04-2022 MCV (RBC) [Entitic vol] 86.8 fL 81-99 [facility] Hematocrit Auto (Bld) [Volum e fraction]Ordered By: Dr. Jones on 07-04-2022 Hematocrit (Bld) [Volume fraction] 40.0 % 37-47 [facility] Laboratory - Chemistry and C hemistry - challengeOrdered By: Dr. Jones on 07-04-2022 CO2 [Moles/Vol] 25.0 mmol/L 21.0-32.0 [facility] Urea nitrogen/Creatinine [Mass ratio] 16.5 mg/mg 10-20 [facility] Laboratory - Hematology and Cell countsOrdered By: Dr. Jones on 07-04-2022 Erythrocyte distribution width (RBC) [Entitic vol] 40.0 fL 35.1-43.9 [facility] Erythrocyte distribution width (RBC) [Ratio] 12.6 % 11.6-14.6 [facility] Immature granulocytes/100 WBC (Bld) 0.400 % 0.0-0.9 [facility] Comment on above: IG% - Immature Granu locytes (promyelocytes, myelocytes and metamyelocytes) > 1% indicates that a LEFT SHIFT is Present. MCH (RBC) [Entitic mass] 28.2 pg 27.0-32.0 [facility] Nucleated RBC/100 WBC (Bld) [Ratio] 0 % 0-5 [facility] MCHC Auto (RBC) [Mass/Vol]Or dered By: Dr. Jones on 07-04-2022 MCHC (RBC) [Mass/Vol] 32.5 g/dL 32-36 [facility] No Panel InformationOrdered By: Dr. Jones on 07-04-2022 Estimated Creatinine Clearance Calc 42.04 ml/min [facility] Estimated GFR (MDRD) Amer 60 mL/min >60 [facility] Comment on above: GFR Calc Estimated GFR (MDRD) Non-Af Amer 49 mL/min >60 [facility] Comment on above: Non- GFR Calc Platelets bldOrdered By: Dr. Jones on 07-04-2022 Platelets (Bld) [#/Vol] 283 10*3/uL 150-450 [facility] Serum or plasma calcium bentley urement (mass/volume)Ordered By: Dr. Jones on 07-04-2022 Calcium [Mass/Vol] 9.0 mg/dL 8.5-10.1 [facility] Serum or plasma creatinine m easurement (mass/volume)Ordered By: Dr. Jones on 07-04-2022 Creatinine [Mass/Vol] 1.21 mg/dL 0.55-1.02 [facility] Comment on above: The validity of the calculated GFR & GFRAA in patients over 70 years has not been determined. Clinical correlation is essential. Serum or plasma urea nitroge n measurement (mass/volume)Ordered By: Dr. Jones on 07-04-2022 Urea nitrogen [Mass/Vol] 20 mg/dL 7-18 [facility] Thin prep Papanicolaou smear with manual screeningOrdered By: Dr. Jones on 07-04-2022 Thin prep Papanicolaou smear with manual screening 4 5-15 [facility] Basophil percentageOrdered B y: Dr. Larios on 07-03-2022 Cholesterol [Mass/Vol] 162 mg/dL <200 [facility] Comment on above: <200 mg/dL Desirable 200-240 mg/dL Borderline >240 mg/dL High Risk Triglyceride [Mass/Vol] 71 mg/dL <199 [facility] Comment on above: The drugs N-Acetylcy steine and Metamizole may falsely depress this assay.Serum Triglycerides Reference Interval Normal <150 mg/dL Borderline high 150 - 199 mg/dL High 200 - 499 mg/dL Very High > or = 500 mg/dL No Panel InformationOrdered By: Dr. Larios on 07-03-2022 Troponin I High Sensitivity 17 pg/mL 3.0-54.0 [facility] Comment on above: Please Note: New Pamella t Units and Gender Specific Reference Ranges. For more information see Policy Stat Procedure [place] High Sensitivity Troponin (TNIH) and attachments. Serum or plasma cholesterol in HDL measurement (mass/volume)Ordered By: Dr. Larios on 07-03-2022 Cholesterol in HDL [Mass/Vol] 57 mg/dL >40 [facility] Comment on above: The drugs N-Acetylcy steine and Metamizole may falsely depress this assay. Reference Range HDL <40 mg/dL Low HDL Cholesterol HDL >or= 60 mg/dL High HDL Cholesterol Serum or plasma cholesterol in VLDL measurement (mass/volume)Ordered By: Dr. Larios on 07-03-2022 Cholesterol in VLDL [Mass/Vol] 14 mg/dL 5-40 [facility] Serum or plasma low density lipoprotein (LDL) cholesterol measurement (mass/volume)Ordered By: Dr. Larios on 07-03-2022 Cholesterol in LDL [Mass/Vol] 91 mg/dL 0-130 [facility] Absolute lymphocyte counton 07-02-2022 Lymphocytes Auto (Unsp spec) [#/Vol] 2.40 10*3/uL 0.83-4.51 [facility] Work Phone: Basophil percentageon 2022 Basophils/100 WBC (Bld) 0.6 % 0-1 [facility] Work Phone: Chloride [Moles/Vol] 110 mmol/L 98-107 [facility] Work Phone: Eosinophils/100 WBC (Bld) 1.3 % 0-5 [facility] Work Phone: [phone] Glucose [Mass/Vol] 115 mg/dL 74-106 [facility] Work Phone: Comment on above: Fasting Glucose resu lt from 100 to 125 mg/dL suggests IMPAIRED HOMEOSTASIS per A.D.A. criteria. Neutrophils (Bld) [#/Vol] 8.4 10*3/uL 2.0-7.7 [facility] Work Phone: Neutrophils/100 WBC (Bld) 70.6 % 47-70 [facility] Work Phone: [phone] Potassium [Moles/Vol] 3.4 mmol/L 3.5-5.1 [facility] Work Phone: Sodium [Moles/Vol] 141 mmol/L 136-145 [facility] Work Phone: [phone] WBC (Bld) [#/Vol] 11.9 10*3/uL 4.4-11.0 [facility] Work Phone: [phone] Basophil percentageOrdered B y: Dr. Kenyon on 07-02-2022 Bilirubin [Mass/Vol] 0.30 mg/dL 0.20-1.00 [facility] Comment on above: For patients on eltr ombopag therapy, use of Dimension [place] TBIL is not recommended. Protein [Mass/Vol] 7.4 g/dL 6.4-8.2 [facility] Basophil percentage 0-5 SEEN /hpf 0-5 [facility] Bilirubin Test strip Ql (U)O rdered By: Dr. Kenyon on 07-02-2022 Bilirubin Ql (U) Negative Negative [facility] Blood erythrocytes count (nu mber/volume)on 07-02-2022 RBC (Bld) [#/Vol] 4.51 10*6/uL 4.2-5.4 [facility] Work Phone: Blood hemoglobin measurement (mass/volume)on 07-02-2022 Hemoglobin (Bld) [Mass/Vol] 12.8 g/dL 12.0-15.0 [facility] Work Phone: Blood lymphocytes/100 leukoc yteson 07-02-2022 Lymphocytes/100 WBC (Bld) 20.1 % 19-41 [facility] Work Phone: Blood monocytes/100 leukocyt eson 07-02-2022 Monocytes/100 WBC (Bld) 7.1 % 0-10 [facility] Work Phone: Blood platelet mean volumeon 07-02-2022 Platelet mean volume (Bld) [Entitic vol] 11.2 fL 6.2-12.0 [facility] Work Phone: COVID-19 virus antigen assay Ordered By: Dr. Kenyon on 07-02-2022 SARS-CoV-2 (COVID-19) Ag IA.rapid Ql (Resp) [facility] Determination of erythrocyte mean corpuscular volume (MCV)on 07-02-2022 MCV (RBC) [Entitic vol] 86.0 fL 81-99 [facility] Work Phone: Glucose Glucometer (BldC) [M ass/Vol]Ordered By: Dr. Kenyon on 07-02-2022 Glucose [Mass/Vol] 105 mg/dL 74-106 [facility] Comment on above: MANAGEMENT OF PATIEN T CARE PER NURSING PROTOCOL Hematocrit Auto (Bld) [Volum e fraction]on 07-02-2022 Hematocrit (Bld) [Volume fraction] 38.8 % 37-47 [facility] Work Phone: Ketones Test strip Ql (U)Ord ered By: Dr. Kenyon on 07-02-2022 Ketones Ql (U) Negative Negative [facility] Laboratory - Chemistry and C hemistry - challengeOrdered By: Dr. Kenyon on 07-02-2022 ALP [Catalytic activity/Vol] 41 U/L 45-117 [facility] ALT [Catalytic activity/Vol] 21 U/L 13-56 [facility] Globulin (S) [Mass/Vol] 3.9 g/dL 2.2-4.2 [facility] Laboratory - Chemistry and C hemistry - challengeon 07-02-2022 CO2 [Moles/Vol] 27.0 mmol/L 21.0-32.0 [facility] Work Phone: Urea nitrogen/Creatinine [Mass ratio] 18.0 mg/mg 10-20 [facility] Work Phone: [phone] Laboratory - Drug toxicology Ordered By: Dr. Kenyon on 07-02-2022 Amphetamines Ql (U) Positive <1000 ng/mL [facility] Benzodiazepines Ql (U) Negative < 200 ng/mL [facility] Cannabinoids Screen Ql (U) Positive < 50 ng/mL [facility] Cocaine Ql (U) Negative < 300 ng/mL [facility] Opiates Ql (U) Negative < 300 ng/mL [facility] Laboratory - Hematology and Cell countson 07-02-2022 Erythrocyte distribution width (RBC) [Entitic vol] 39.5 fL 35.1-43.9 [facility] Work Phone: Erythrocyte distribution width (RBC) [Ratio] 12.5 % 11.6-14.6 [facility] Work Phone: [phone] Immature granulocytes/100 WBC (Bld) 0.300 % 0.0-0.9 [facility] Work Phone: Comment on above: IG% - Immature Granu locytes (promyelocytes, myelocytes and metamyelocytes) > 1% indicates that a LEFT SHIFT is Present. MCH (RBC) [Entitic mass] 28.4 pg 27.0-32.0 [facility] Work Phone: Nucleated RBC/100 WBC (Bld) [Ratio] 0 % 0-5 [facility] Work Phone: [phone] MCHC Auto (RBC) [Mass/Vol]on 07-02-2022 MCHC (RBC) [Mass/Vol] 33.0 g/dL 32-36 [facility] Work Phone: Mucus LM Ql (Urine sed)Order ed By: Dr. Kenyon on 07-02-2022 Mucus Ql (Urine sed) 0 SEEN /hpf [facility] Nitrite Test strip Ql (U)Ord ered By: Dr. Kenyon on 07-02-2022 Nitrite Ql (U) Negative Negative [facility] No Panel Informationon 07-02 Estimated Creatinine Clearance Calc 39.78 ml/min [facility] Work Phone: [phone] Estimated GFR (MDRD) Amer 59 mL/min >60 [facility] Work Phone: [phone] Comment on above: GFR Calc Estimated GFR (MDRD) Non-Af Amer 49 mL/min >60 [facility] Work Phone: [phone] Comment on above: Non- GFR Calc Troponin I High Sensitivity 16 pg/mL 3.0-54.0 [facility] Work Phone: Comment on above: Please Note: New Pamella t Units and Gender Specific Reference Ranges. For more information see Policy Stat Procedure [place] High Sensitivity Troponin (TNIH) and attachments. No Panel InformationOrdered By: Dr. Kenyon on 07-02-2022 Ethyl Alcohol Level < 3.0 mg/dL [facility] Comment on above: The serum:whole bloo d ethanol ratio is approximately 1.14and varies slightly with hematocrit. Medical Alcohol reference interval and critical value innon-tolerant individuals; 50 - 100 Impairment 100 Intoxication 100 - 250 Severe Poisoning 250 - 400 Deep/possible fatal coma MDMA (Ecstasy) Screen Positive < 500 ng/mL [facility] Urine Barbiturates Screen Negative < 200 ng/mL [facility] Urine Drug Screen Comment [facility] Comment on above: CONFIRMATORY TESTING FOR ALL POSITIVE URINE DRUG SCREENRESULTS WILL ONLY BE SENT OUT UPON PHYSICIAN ORDER. VISTA Urine Drug Screen methods provide only preliminaryanalytical test results. A more specific alternate chemicalmethod must be used in order to obtain a confirmedanalytical result. Gas chromatography/mass spectrometery(GC/MS) is the preferred confirmatory method. Clinicalconsideration and professional judgement should be appliedto any drug of abuse test result, particularly whenpreliminary positive results are used. URINE TCA TESTING MUST BE ORDERED SEPARATELY. USE TESTMNEMONIC: [facility] Urine Methadone Screen Negative < 300 ng/mL [facility] Platelets bldon 07-02-2022 Platelets (Bld) [#/Vol] 294 10*3/uL 150-450 [facility] Work Phone: Protein Test strip Ql (U)Ord ered By: Dr. Kenyon on 07-02-2022 Protein Ql (U) 15 mg/dl Negative [facility] Serum or plasma albumin bentley urement (mass/volume)Ordered By: Dr. Kenyon on 07-02-2022 Albumin [Mass/Vol] 3.5 g/dL 3.2-5.0 [facility] Serum or plasma albumin/glob ulin mass ratioOrdered By: Dr. Kenyon on 07-02-2022 Albumin/Globulin [Mass ratio] 0.9 {ratio} 0.9-2.4 [facility] Serum or plasma calcium bentley urement (mass/volume)on 07-02-2022 Calcium [Mass/Vol] 9.0 mg/dL 8.5-10.1 [facility] Work Phone: Serum or plasma creatinine m easurement (mass/volume)on 07-02-2022 Creatinine [Mass/Vol] 1.22 mg/dL 0.55-1.02 [facility] Work Phone: Comment on above: The validity of the calculated GFR & GFRAA in patients over 70 years has not been determined. Clinical correlation is essential. Serum or plasma urea nitroge n measurement (mass/volume)on 07-02-2022 Urea nitrogen [Mass/Vol] 22 mg/dL 7-18 [facility] Work Phone: Squamous epithelial cells de tection in urine sediment by light microscopyOrdered By: Dr. Kenyon on 07-02-2022 Epithelial cells.squamous LM Ql (Urine sed) 0-5 SEEN /hpf 5-10 [facility] Thin prep Papanicolaou smear with manual screeningOrdered By: Dr. Kenyon on 07-02-2022 Thin prep Papanicolaou smear with manual screening 13 U/L 15-37 [facility] Thin prep Papanicolaou smear with manual screeningon 01-12-2023 Thin prep Papanicolaou smear with manual screening 4 5-15 [facility] Work Phone: Urine blood detectionOrdered By: Dr. Kenyon on 07-02-2022 RBC Ql (U) Negative Negative [facility] RBC Ql (U) 0 SEEN /hpf 0-5 [facility] Urine clarityOrdered By: Dr. Kenyon on 07-02-2022 Clarity (U) Clear Clear [facility] Urine color determinationOrd ered By: Dr. Kenyon on 07-02-2022 Color (U) Yellow Yellow [facility] Urine glucose detectionOrder ed By: Dr. Kenyon on 07-02-2022 Glucose Ql (U) Normal mg/dl Normal [facility] Urine leukocyte esterase det ection by dipstickOrdered By: Dr. Kenyon on 07-02-2022 Leukocyte esterase Test strip Ql (U) 500 /ul Negative [facility] Urine pHOrdered By: Dr. Kvng berry on 07-02-2022 pH (U) 6.0 [pH] 5.0 - 8.0 [facility] Urine phencyclidine (PCP) de tectionOrdered By: Dr. Kenyon on 07-02-2022 Phencyclidine Ql (U) Negative < 25 ng/mL [facility] Urine sediment bacteria coun t by microscopy (number/high power field)Ordered By: Dr. Kenyon on 07-02-2022 Bacteria LM.HPF (Urine sed) [#/Area] 0 /[HPF] None Seen [facility] Urine specific gravity measu rementOrdered By: Dr. Kenyon on 07-02-2022 Specific gravity (U) [Rel density] 1.020 1.002-1.030 [facility] Urobilinogen Auto test strip Ql (U)Ordered By: Dr. Kenyon on 07-02-2022 Urobilinogen Ql (U) Normal mg/dl Normal [facility] Absolute lymphocyte counton 04-29-2022 Lymphocytes Auto (Unsp spec) [#/Vol] 1.80 10*3/uL 0.83-4.51 [facility] Work Phone: Basophil percentageon 2021 Basophils/100 WBC (Bld) 0.6 % 0-1 [facility] Work Phone: Chloride [Moles/Vol] 107 mmol/L 98-107 [facility] Work Phone: Eosinophils/100 WBC (Bld) 3.4 % 0-5 [facility] Work Phone: Glucose [Mass/Vol] 107 mg/dL 74-106 [facility] Work Phone: Comment on above: Fasting Glucose resu lt from 100 to 125 mg/dL suggests IMPAIRED HOMEOSTASIS per A.D.A. criteria. Neutrophils (Bld) [#/Vol] 8.8 10*3/uL 2.0-7.7 [facility] Work Phone: Neutrophils/100 WBC (Bld) 73.3 % 47-70 [facility] Work Phone: Potassium [Moles/Vol] 3.5 mmol/L 3.5-5.1 [facility] Work Phone: Sodium [Moles/Vol] 139 mmol/L 136-145 [facility] Work Phone: WBC (Bld) [#/Vol] 12.0 10*3/uL 4.4-11.0 [facility] Work Phone: Blood erythrocytes count (nu mber/volume)on 04-29-2022 RBC (Bld) [#/Vol] 4.70 10*6/uL 4.2-5.4 [facility] Work Phone: Blood hemoglobin measurement (mass/volume)on 04-29-2022 Hemoglobin (Bld) [Mass/Vol] 13.5 g/dL 12.0-15.0 [facility] Work Phone: Blood lymphocytes/100 leukoc yteson 04-29-2022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 Phone: Viral antigen assay Dr. Allan BARROS Work Phone: Plan of Treatment Date Care Activity Detail Author Start: 08-21-2026 Urine microalbumin profile DTAP,TDAP,TD (2 - Td or Tdap) [facility] Start: 04-27-2023 Patient discharge [facility] Start: 04-25-2023 Introduction of urinary catheter [facility] Start: 04-23-2023 [facility] Start: 04-19-2023 End: 04-19-2023 [facility] Start: 04-19-2023 Ambulation therapy management [facility] Start: 04-19-2023 Application of device [facility] Start: 04-19-2023 Exercises [facility] Start: 04-19-2023 Following clinical pathway protocol [facility] Start: 04-19-2023 Neurovascular assessment [facility] Start: 04-19-2023 Patient education [facility] Start: 04-19-2023 Provision of activity privileges [facility] Start: 04-19-2023 Recommendation to continue with treatment [facility] Start: 04-19-2023 Referral to occupational therapist [facility] Start: 04-19-2023 Referral to service [facility] Start: 04-19-2023 Skin care [facility] Start: 04-19-2023 Vital signs measurements [facility] Start: 04-19-2023 Wound care [facility] Start: 04-19-2023 Care planning and problem solving actions [facility] Start: 04-18-2023 Measuring intake and output [facility] Start: 04-18-2023 Measuring intake and output [facility] Start: 04-18-2023 Measuring intake and output [facility] Start: 04-18-2023 Application of intermittent pneumatic compression device [facility] Start: 04-18-2023 Application of ice collar, cap or bag [facility] Start: 04-18-2023 Assessment of risk of venous thromboembolism [facility] Start: 04-18-2023 Bedrest [facility] Start: 04-18-2023 Consultation [facility] Start: 04-18-2023 Insertion of catheter into peripheral vein [facility] Start: 04-18-2023 End: 04-18-2023 Measuring intake and output [facility] Start: 04-18-2023 Neurovascular assessment [facility] Start: 04-18-2023 Providing care according to standard [facility] Start: 04-18-2023 Provision of activity privileges [facility] Start: 04-18-2023 Referral to service [facility] Start: 04-18-2023 Skin care [facility] Start: 04-18-2023 [facility] Start: 04-18-2023 Following clinical pathway protocol [facility] Start: 04-18-2023 Hospital admission, emergency, from emergency room, medical nature [facility] Start: 04-18-2023 Verification routine [facility] Start: 04-18-2023 Admission procedure [facility] Start: 10-21-2022 Blood chemistry [facility] Start: 10-20-2022 Patient discharge [facility] Start: 10-18-2022 Application of intermittent pneumatic compression device [facility] Start: 10-18-2022 Following clinical pathway protocol [facility] Start: 10-18-2022 Assessment of risk of venous thromboembolism [facility] Start: 10-18-2022 Cardiac monitoring [facility] Start: 10-18-2022 Catheterization of vein [facility] Start: 10-18-2022 Elevation of head of bed [facility] Start: 10-18-2022 Exercises [facility] Start: 10-18-2022 Implementation of planned interventions [facility] Start: 10-18-2022 Insertion of catheter into peripheral vein [facility] Start: 10-18-2022 Measuring intake and output [facility] Start: 10-18-2022 Notification of physician [facility] Start: 10-18-2022 Providing care according to standard [facility] Start: 10-18-2022 Provision of activity privileges [facility] Start: 10-18-2022 Referral to occupational therapist [facility] Start: 10-18-2022 Referral to service [facility] Start: 10-18-2022 Tobacco use cessation education [facility] Start: 10-18-2022 [facility] Start: 10-18-2022 Verification routine [facility] Start: 10-18-2022 Admission procedure [facility] Start: 10-18-2022 Oxygen therapy [facility] Start: 10-18-2022 [facility] Start: 09-27-2022 Referral to service [facility] Start: 09-27-2022 Patient discharge [facility] Start: 09-25-2022 Blood chemistry [facility] Start: 09-24-2022 Application of intermittent pneumatic compression device [facility] Start: 09-24-2022 Implementation of planned interventions [facility] Start: 09-24-2022 Notification of physician [facility] Start: 09-24-2022 Following clinical pathway protocol [facility] Start: 09-24-2022 Ambulation without limitation [facility] Start: 09-24-2022 Assessment of risk of venous thromboembolism [facility] Start: 09-24-2022 Cardiac monitoring [facility] Start: 09-24-2022 Catheterization of vein [facility] Start: 09-24-2022 Continuous pulse oximetry [facility] Start: 09-24-2022 Elevation of head of bed [facility] Start: 09-24-2022 Exercises [facility] Start: 09-24-2022 Implementation of planned interventions [facility] Start: 09-24-2022 Insertion of catheter into peripheral vein [facility] Start: 09-24-2022 Measuring intake and output [facility] Start: 09-24-2022 MRI of brain without contrast Brain without Contrast [facility] Start: 09-24-2022 Notification of physician [facility] Start: 09-24-2022 Oxygen therapy [facility] Start: 09-24-2022 Patient referral to dietitian [facility] Start: 09-24-2022 Providing care according to standard [facility] Start: 09-24-2022 Referral to occupational therapist [facility] Start: 09-24-2022 Referral to service [facility] Start: 09-24-2022 Speech therapy assessment [facility] Start: 09-24-2022 Tobacco use cessation education [facility] Start: 09-24-2022 [facility] Start: 09-24-2022 Verification routine [facility] Start: 09-24-2022 End: 09-24-2022 Admission procedure [facility] Start: 07-04-2022 Patient discharge [facility] Start: 07-02-2022 Following clinical pathway protocol [facility] Start: 07-02-2022 Assessment of risk of venous thromboembolism [facility] Start: 07-02-2022 Cardiac monitoring [facility] Start: 07-02-2022 Catheterization of vein [facility] Start: 07-02-2022 Continuous pulse oximetry [facility] Start: 07-02-2022 Elevation of head of bed [facility] Start: 07-02-2022 Exercises [facility] Start: 07-02-2022 Implementation of planned interventions [facility] Start: 07-02-2022 Insertion of catheter into peripheral vein [facility] Start: 07-02-2022 Measuring intake and output [facility] Start: 07-02-2022 Notification of physician [facility] Start: 07-02-2022 Oxygen therapy [facility] Start: 07-02-2022 Providing care according to standard [facility] Start: 07-02-2022 Provision of activity privileges [facility] Start: 07-02-2022 Referral to occupational therapist [facility] Start: 07-02-2022 Referral to service [facility] Start: 07-02-2022 Tobacco use cessation education [facility] Start: 07-02-2022 [facility] Start: 07-02-2022 Verification routine [facility] Work Phone: Start: 07-02-2022 Admission procedure [facility] Start: 07-02-2022 [facility] Work Phone: Start: 04-29-2022 Oxygen therapy [facility] Work Phone: Start: 04-29-2022 [facility] Work Phone: Start: 02-19-2022 Influenza vaccination INFLUENZA (#1) [facility] Start: 10-24-2021 DIABETES SCREEN DIABETES SCREEN [facility] Start: 08-21-2021 LIPID SCREEN LIPID SCREEN [facility] Start: 2018 SHINGRIX VACCINE (1 of 2) SHINGRIX VACCINE (1 of 2) [facility] Start: 08-27-2017 Mammography MAMMOGRAM [facility] Start: 08-21-2017 PNEUMOCOCCAL (2 - PCV) PNEUMOCOCCAL (2 - PCV) [facility] Start: 2013 COLOGUARD (FIT-DNA) COLOGUARD (FIT-DNA) [facility] Start: 2013 Colonoscopy COLONOSCOPY [facility] Start: 2013 COLORECTAL CANCER SCREENING COLORECTAL CANCER SCREENING [facility] Start: [address] COLONOGRAPHY [facility] Start: 2013 FECAL OCCULT BLOOD FECAL OCCULT BLOOD [facility] Start: 2013 SIGMOIDOSCOPY SIGMOIDOSCOPY [facility] Start: 1998 HPV TESTING HPV TESTING [facility] Start: 1989 PAP TESTING PAP TESTING [facility] Start: 1986 HEPATITIS C SCREENING HEPATITIS C SCREENING [facility] Start: 1986 HIV SCREENING HIV SCREENING [facility] Start: 1968 COVID-19 VACCINE (#1) COVID-19 VACCINE (#1) [facility] Start: 1968 HEPATITIS B (1 of 3 - 3-dose series) HEPATITIS B (1 of 3 - 3-dose series) [facility] Amphetamine [Mass/vo lume] in Urine [facility] Anion gap measurement [facility] Benzodiazepine measurement, urine [facility] BUN/Creatinine ratio [facility] Calcium [Mass/volume ] in Serum or Plasma [facility] Carbon dioxide, tota l [Moles/volume] in Serum or Plasma [facility] Cardiac event recording [facility] Cardiac event recording [facility] Cardiac event recording [facility] Chloride [Moles/volu me] in Serum or Plasma [facility] Cholesterol [Mass/vo lume] in Serum or Plasma [facility] Cholesterol in HDL [Mass/volume] in Serum or Plasma [facility] Cholesterol in LDL [Mass/volume] in Serum or Plasma [facility] Cocaine measurement, urine [facility] Creatinine [Moles/vo lume] in Serum or Plasma [facility] Glucose [Mass/volume ] in Serum or Plasma [facility] Hematocrit [Volume Fraction] of Blood [facility] Hemoglobin [Mass/vol ume] in Blood [facility] Leukocytes [#/volume ] in Blood [facility] Mean corpuscular hemoglobin concentration determination [facility] Mean corpuscular hemoglobin determination [facility] Measurement of 3,4-methylenedioxymethamph etamine in urine [facility] Measurement of renal function [facility] Methadone measuremen t, urine [facility] Neutrophil count [facility] Neutrophil percent differential count [facility] Patient Education [facility] Work Phone: Patient referral [facility] Work Phone: pH of Urine [facility] Phencyclidine [Prese nce] in Urine [facility] Platelets [#/volume] in Blood [facility] Potassium [Moles/vol ume] in Serum or Plasma [facility] Red blood cell count [facility] Red cell distributio n width determination [facility] Sodium [Moles/volume ] in Serum or Plasma [facility] Triglycerides measurement [facility] Urea nitrogen [Mass/volume] in Serum or Plasma [facility] Urine barbiturate measurement [facility] Urine cannabinoid measurement [facility] Urine opiate measurement [facility] VLDL cholesterol measurement [facility] Immunizations Immunization Date Immunization Notes Care Provider Toribio dahl 08-08-2021 influenza, injectabl e, quadrivalent, preservative free [facility] 08-08-2021 influenza, seasonal, injectable [facility] 07-26-2018 influenza, injectabl e, quadrivalent, contains preservative Cristhian Bower APRN.DAYAMI Work Phone: [facility] 07-26-2018 influenza, injectabl e, quadrivalent, preservative free [facility] 07-26-2018 influenza, seasonal, injectable Dr. Desean BARROS Work Phone: [facility] 06-08-2018 hepatitis A vaccine, adult dosage Dr. Desean BARROS Work Phone: [facility] 08-21-2016 pneumococcal polysaccharide vaccine, 23 valent Cristhian Bower APRN.DAYAMI Work Phone: [facility] 08-21-2016 tetanus toxoid, redu neal diphtheria toxoid, and acellular pertussis vaccine, adsorbed Cristhian Bower APRN.PRECISION OPTICS TECHNICIAN Work Phone: [facility] Payers Date Payer Category Payer Self-pay [id number] 2018 Medicaid [employer] A[employer] TERM 05/20 [employer] [id number] 2018-2022 [address] [place] [address] Medicaid [id number] 2014 Medicaid [id number] 2014 Unknown [id number] Unknown [id number] Unknown [id number] Unknown [id number] Unknown [id number] Unknown [id number] Social History Date Type Detail Facility Start: 04-22-2022 End: 05-21-2023 Tobacco smoking status [facility] Unknown if ever smoked [facility] Start: 07-12-2019 Cigarettes [facility] Start: 1970 Sex Assigned At Female [facility] Start: 08-21-2016 End: 05-21-2023 Tobacco smoking status [facility] Smokes tobacco daily [facility] Work Phone: History of tobacco use Cigarette Smoker [facility] Work Phone: Start: 08-21-2016 Cigarettes smoked current (pack per day) - Reported 0.5 [facility] Start: 08-21-2016 Tobacco use and exposure Smokeless tobacco non-user [facility] Work Phone: Start: 03-28-2020 Alcohol intake Current non-dr loom starter of alcohol (finding) [facility] Start: 1970 Sex Assigned At Not on file C [facility] Start: 04-12-2022 End: 04-22-2022 Exposure to SARS-CoV-2 (event) Not sure [facility] Work Phone: Start: 09-19-2024 End: 09-20-2024 Sex Female (finding) [facility] NEGATED: Highlighted row [facility] Medical Equipment Procedure Code Equipment Code Equipment Origin al Text Equipment Identifier Dates ([id number]) Orthopaedic bone screw, non-bioabsorbable, sterile [id number] FDA Start: 04-19-2023 ([id number]) Femur nail, sterile [id number] FDA Start: 04-19-2023 Spiral blade ()[id number] FDA Start: 04-19-2023 Goals Date Patient Goal Desired Activity /State Functional Status Date Assessment Result Facility 04-27-2023 Functional status Activity Abili ty With Assist of 2 [facility] Work Phone: 04-27-2023 Functional status Chair [facility] Work Phone: 10-20-2022 Functional status Up ad gus [facility] Work Phone: 09-27-2022 Functional status Ambulates [facility] Work Phone: 07-04-2022 Functional status Ambulates [facility] Work Phone: Mental Status Date Assessment Result Facility 04-27-2023 Cognitive function Voice/Name [facility] Work Phone: 10-20-2022 Cognitive function Voice/Name [facility] Work Phone: 10-18-2022 Cognitive function Voice/Name [facility] Work Phone: 09-27-2022 Cognitive function Voice/Name [facility] Work Phone: 09-24-2022 Cognitive function Voice/Name [facility] Work Phone: 07-04-2022 Cognitive function Voice/Name [facility] Work Phone: 07-02-2022 Cognitive function Voice/Name [facility] Work Phone: 04-29-2022 Cognitive function Voice/Name [facility] Work Phone: Clinical Notes 04-22-2022 to 04-27-2023 Note Date & Type Note Facility 04-27-2023 Discharge summary Note Date/Time April 26, 2023 9:39am [facility] Medical Records Department [address] [place] [address] Transfer to [facility] MR#: [id number] Acct: [id number] Name: ZEKE RAY Rep #:[id number] : 1970 52 From: Rad Baker DO PCP: Care Physician,No Primary Status :ADM IN Certification of patient admission REQUIRED AT TIME OF ADMISSION. I CERTIFY THAT POST-HOSPITAL ECF SERVICES ARE REQUIRED TO BE GIVEN ON AN IN-PATIENT BASIS BECAUSE OF THE ABOVE NAMED PATIENT'S NEED FOR GROUP HOME CARE ON A CONTINUING BASIS FOR THE CONDITION(S) FOR WHICH HE/SHE WAS RECEIVING IN-PATIENT HOSPITAL SERVICES PRIOR TO HIS/HER TRANSFER TO [facility]. 04/26/23 1017<Electronically signed by Rad Baker DO> Diet Diet Order/Speech Therapy: 04/19/23 17:34 Diet: Cardiac - Heart Healthy Is pt able to select menu?: Yes Routine Orders/Code Status Code Status: DNRCC-A (no intubation) Wound(s) LEFT HIP, DISTAL: Wound Type: Surgical Incision LEFT HIP, PROXIMAL: Wound Type: Surgical Incision Therapies Weight Bearing: Weight bearing as tolerated Physical Therapy: Eval and Treat Occupational Therapy: Eval and Treat Problem/Diagnosis (1) Closed intertrochanteric fracture of left hip: Status: Acute Code(s): S72.142A - Displaced intertrochanteric fracture of left femur, initial encounterfor closed fracture (2) Accelerated hypertension: Status: Acute Code(s): I10 - Essential (primary) hypertension (3) ANAND (acute kidney injury): Status: Resolved Code(s): N17.9 - Acute kidney failure, unspecified (4) Hypokalemia: Status: Acute Code(s): E87.6 - Hypokalemia Allergies/Procedures Done in Hospital Allergies Penicillins Allergy (Verified 04/17/23 21:26) Hives Procedures: - (Cephalic medullary fixation left hip fracture) Type of Care/Length of Stay Estimated LOS: Convalescent Care Less Than 30 days Type of Care Needed: Skilled Rehab Potential: Good Prognosis: Good Additional Orders/Day of Discharge H&P will serve as current which was dated: 04/18/23 Day of Discharge: 04/26/23 Dietary and Speech Recommendations Dietitian Recommendations/Changes: continue cardiac diet as tolerated Discharge Plan Admission Admit Date/Time: 04/18/23 01:23 Primary Reason for Your Visit: left hip fracture Attending Provider: Rad Baker Primary Care Provider: Care Physician,No Primary Consulting Providers: Hakeem Velez; Hakeem Bolton; Erik Pineda; Roger Alves; Jeison Lamas Discharge Orders/Prescriptions Prescriptions: New acetaminophen 500 mg Tablet 1,000 mg PO Q8 Qty: 0 0RF amlodipine 10 mg Tablet 10 mg PO DAILY Qty: 0 0RF calcium carbonate 200 mg calcium (500 mg) Tablet,Chewable 500 mg PO TIDCM Qty: 0 0RF cholecalciferol (vitamin D3) 25 mcg (1,000 unit) Tablet 25 mcg PO DAILY Qty: 0 0RF hydralazine 50 mg Tablet 50 mg PO TID Qty: 0 0RF lisinopril 10 mg Tablet 10 mg PO DAILY Qty: 0 0RF menthol-zinc oxide [Calmoseptine] 0.44-20.6 % Ointment 1 applic topical 4X/DAY Qty: 0 0RF Protocol: *Topical Application Instructions APPLICATION INSTRUCTIONS: apply to nadya area/buttocks polyethylene glycol 3350 17 gram Powder In Packet 17 g PO BID Qty: 1 0RF sennosides-docusate sodium [Stool Softener-Stimulant Laxat] 8.6-50 mg Tablet 2 tab PO BID Qty: 0 0RF diphenhydramine HCl [Banophen] 25 mg Capsule 25 mg PO Q6H PRN PRN (Reason: Itching) Qty: 0 0RF nicotine 21 mg/24 hr Patch 24 Hour 21 mg transdermal DAILY Qty: 0 0RF oxycodone 5 mg Tablet 15 mg PO Q4H PRN PRN (Reason: Pain Score 6-10) 2 Days Qty: 10 0RF enoxaparin 40 mg/0.4 mL Syringe 40 mg subcut DAILY Qty: 0 0RF Continued aspirin 81 mg tablet,chewable 81 mg PO DAILY Patient Comments: TAKE 1 TABLET BY MOUTH EVERY DAY multivitamin Capsule 1 cap PO DAILY atorvastatin 40 mg Tablet 80 mg PO QHS Qty: 0 0RF nicotine 21 mg/24 hr patch 24 hour 21 mg transdermal DAILY 30 Days Qty: 30 0RF Discontinued polyethylene glycol 3350 17 gram powder in packet 17 g PO DAILY sennosides-docusate sodium [Stool Softener-Stimulant Laxat] 8.6-50 mg Tablet 2 tab PO BID PRN PRN (Reason: Constipation) Qty: 0 0RF Xarelto 2.5 mg tablet 2.5 mg PO BID 30 Days Qty: 60 2RF lisinopril 20 mg tablet 40 mg PO DAILY 30 Days Qty: 0 0RF Patient Comments: TAKE 1 TABLET BY MOUTH EVERY DAY Rx Instructions: Suggested to keep systolic blood pressure 1 50-160 FOR 1 week and then decrease to 130 mg over the next 2 to 4 weeks Referrals / Follow Up: Care Physician,No Primary [Primary Care Provider] - Hakeem Velez DO [Med Staff - Active Staff] - See Referral Note (in two weeks) Disposition Disposition (needs filled in before D/C Order can be placed): Halfway Facility (1) Closed intertrochanteric fracture of left hip Qualifiers: Encounter type: initial encounter Fracture alignment: displaced Qualified Code(s): S72.142A - Displaced intertrochanteric fracture of left femur, initial encounter for closed fracture 04/26/23 1017 <Electronically signed by Rad Baker DO> Cosigner Signature (if applicable): CC: Dr. Erik Pineda DO; Dr. Hakeem Bolton MD; Dr. Hakeem Velez DO; Dr. Jeison Lamas MD; Dr. Roger Alves MD; No Primary Care Physician ~ ADDENDUM by Dr. Rad Baker DO on 04/27/23 at 1217 Addendum Date of discharge should read 04/27/2023 04/27/23 1217 <Electronically signed by Rad Baker DO> cc: Dr. Erik Pineda DO; Dr. Hakeem Bolton MD; Dr. Hakeem Velez DO; Dr. Jeison Lamas MD; Dr. Roger Alves MD; No Primary Care Physician ~* Signed [facility] Work Phone: 1(843) 235-364711-06-2023 Progress note Author Rad Baker [facility] April 26, 2023 7:37pm Note Date/Time April 26, 2023 7 :33pm [facility] Medical Records Department [address] [place] [address] Progress Note - Hospitalist 04/26/231925 MR#: [id number] Acct: [id number] Name: ZEKE RAY Rep #:[id number] : 1970 52 From: Rad Baker DO PCP: Care Physician,No Primary Status :ADM IN Location: [place] [address] Reason for Visit Reason for Visit: Diagnoses Hypokalemia (04/18/23) Essential (primary) hypertension (04/18/23) Hemiplegia and hemiparesis following cerebral infarction affecting left non- dominant side (04/18/23) Acute kidney failure, unspecified (04/18/23) Other symptoms and signs involving the musculoskeletal system (04/18/23) Displaced intertrochanteric fracture of left femur, initial encounter for closedfracture (04/18/23) Subjective Subjective That shePatient was seen and examined today, I asked her if she felt needed to go to an extended care facility for rehab services and she told me "yes" patientis still having quite a bit of knee pain on the left side. Objective Data Objective Data Vital Signs: Vital Signs Temp Pulse Resp BP Pulse Ox O2 Del Method O2 Flow Rate 97.8 F 96 16 98/57 L 95 Room Air 2 04/26/23 19:13 04/26/23 19:13 04/26/23 19:13 04/26/23 19:13 04/26/23 19:13 04/26/23 19:13 04/19/23 18:52 Oxygen Flow Rate (L/min) 2 Oxygen Delivery Method Room Air Weight: 58.5 kg Body Mass Index (BMI) 22.1 Intake & Output: Intake and Output for Last 24 Hours 04/25/23 04/25/23 04/26/23 00:59 23:59 23:59 Intake Total 720 / 720 Output Total 351 / 351 Balance 369 / 369 Lab / Micro Data 04/26/23 05:50 04/26/23 05:50 Labs: Laboratory Results - last 24 hr 04/26/23 05:50: WBC 15.0 H, RBC 3.70 L, Hgb 10.4 L, Hct 32.7 L, MCV 88.4, MCH 28.1, MCHC 31.8 L, RDW Std Deviation 42.8, RDW Coeff of Jovani 13.3, Plt Count 321,MPV 12.2 H, Immature Gran % (Auto) 0.600, Neut % (Auto) 77.6 H, Lymph % (Auto) 9.2 L, [place] % (Auto) 8.8, Eos % (Auto) 3.3, Baso % (Auto) 0.5, Absolute Neuts (auto) 11.6 H, Absolute Lymphs (auto) 1.37, Nucleated RBC % 0, Sodium 141, Potassium 3.5, Chloride 111 H, Carbon Dioxide 24.0, Anion Gap 6, BUN 13, Creatinine 1.06 H, Estim Creat Clear Calc 52.39, Est GFR (MDRD) Af Amer 69, Est GFR (MDRD) Non-Af 57 L, BUN/Creatinine Ratio 12.3, Glucose 110 H, Calcium 8.8 Rhythm Strip Rhythm Strip: Sinus Rhythm Rate: 65 Ectopy: None Physical Exam Const alert, oriented x3, no apparent distress and healthy appearing General Appearance: cooperative, well kempt and well developed Orientation / Consciousness: awake, oriented to person, oriented to place and oriented to time HEENT normocephalic and moist oral mucous membranes Eyes PERRL, EOMs intact bilaterally and conjunctivae normal Neck supple, no JVD, thyroid normal and no carotid bruits General: trachea midline Resp normal respiratory effort, no retractions, no use of accessory muscles and clearto auscultation bilaterally Auscultation: Negative for rales, rhonchi or wheezes Cardio regular rate, regular rhythm, S1 normal heart sound, S2 normal heart sound, no murmurs, no rub and no gallops GI normal to inspection, nondistended, normoactive bowel sounds, soft to palpation,non-tender and non-distended Extremity no clubbing, cyanosis or edema Skin no rashes or lesions noted General Skin Exam: no breakdown Neuro oriented x3, CN's II-XII intact bilaterally and no sensory deficits noted Sensorium / Orientation: awake and alert Speech: speech normal Psych affect normal Assessment & Plan Assessment/Plan (1) Closed intertrochanteric fracture of left hip: QUALIFIERS: Encounter type: initial encounter Fracture alignment:displaced Qualified Code(s): S72.142A - Displaced intertrochanteric fracture ofleft femur, initial encounter for closed fracture PLAN: Plan 1. Intertrochanteric fracture of the left hip-status post cephalic medullary fixation 04/19/2023-PT and OT will continue, she will need placement in a group home facility for short-term rehab services #2 essential hypertension-patient will remain on her current medications #3 acute kidney injury-resolved at this time, labs will be monitored as needed #4 hypokalemia-patient received potassium supplementation, her hypokalemia is resolved at this time, monitor as needed with labs #5 cerebrovascular disease-patient states that she was on a baby aspirin at homebut she was not taking atorvastatin because she did not have a prescription, I will place her back on these medications #6 left-sided hemiparesis-complicates care, medical course, recovery, and prognosis, continue PT and OT #7 noncompliance with outpatient medications-complicates care, medical course, recovery, and prognosis Total clinical time spent by myself addressing the patient's medical issues, reviewing all her data, and collaborating with patient's care team: 25-minutes Charges/Coding Visit Charges Inpatient E&M: 47556 Subs Hosp L1 04/26/231936 <Electronically signed by Rad Baker DO> Cosigner Signature (if applicable): CC: ~ Signed [facility] Work Phone: 1(165) 136-322911-05-2023 Progress note Author Jeison Lamas [facility] April 25, 2023 9:42am Note Date/Time April 25, 2023 9 :42am [facility] Medical Records Department [facility] [place] [address] Progress Note - Hospitalist 04/25/23 0937 MR#: [id number] Acct: [id number] Name: ZEKE RAY Rep #:[id number] : 1970 52 From: Jeison thornton MD PCP: Care Physician,No Primary Status :ADM IN Location: [place] [address] Subjective Subjective No issues overnight awaiting SNF placement Objective Data Objective Data Vital Signs: Vital Signs Temp Pulse Resp BP Pulse Ox O2 Del Method O2 Flow Rate 97.9 F 82 16 120/74 96 Room Air 2 04/25/23 09:05 04/25/23 09:05 04/25/23 09:05 04/25/23 09:05 04/25/23 09:05 04/25/23 09:21 04/19/23 18:52 Oxygen Flow Rate (L/min) 2 Oxygen Delivery Method Room Air Weight: 128 lb 15.527 oz Body Mass Index (BMI) 22.1 Intake & Output: Intake and Output for Last 24 Hours 04/24/23 04/25/23 04/26/23 04:59 03:59 03:59 Intake Total 360 / 360 Output Total 500 / 500 Balance -140 / -140 Lab / Micro Data 04/23/23 06:24 04/23/23 06:24 Rhythm Strip Rhythm Strip: Sinus Rhythm Rate: 65 Ectopy: None Physical Exam Narrative General: Alert, Oriented x3, Cooperative, No apparent distress HEENT: Atraumatic, PERRLA, EOMI, Normocephalic Oral: Moist Mucosa Neck: Supple, No JVD Lungs: Clear to auscultation, Normal air movement, No rhonchi, No wheeze, No rales Cardiovascular: Regular rate, Regular Rhythm, Normal S1, Normal S2, No murmurs Abdomen: Soft, Non Tender, Non-Distended, No Hepato-splenomegaly Extremities: No edema, Capillary Refill Less than 3 Seconds Skin: Incision CDI Musculoskeletal: Tenderness to left hip Neurological: Cranial nerves II-XII grossly intact, Motor Exam 5/5 strength throughout, Sensory exam intact to light touch and pain Psych/Mental Status: Flat Assessment & Plan Assessment/Plan (1) Closed intertrochanteric fracture of left hip: QUALIFIERS: Encounter type: initial encounter Fracture alignment:displaced Qualified Code(s): S72.142A - Displaced intertrochanteric fracture ofleft femur, initial encounter for closed fracture PLAN: Left femoral neck intertrochanteric fracture with angulation Patient underwent a cephalo-medullary fixation of left hip on 04/19 Pain control Vitamin D level. Was 28.8. ergocalciferol weekly for 8 weeks. Per orthopedics, patient to be weightbearing as tolerated. Dressing change postop day 5 at which time the incision should be cleaned with warm water and antibacterial soap daily. Dry dressing change daily after this point. Follow-upwith orthopedics in 2 weeks. 04/22: Continue PT and OT. Waiting for pre-CERT. No acute distress. 04/23: Still waiting for pre-CERT. Continue PT and OT. Patient has pain over left knee joint. 04/25/2023: Awaiting pre-CERT (2) Accelerated hypertension: PLAN: Improved Not taking ANY medications as outpt which includes liinopril 40/d She received a 1x dose of lisinopril on 04/17 at 2200. Add amlodipine. Continue PRN hydralazine. Hold lisinopril given ANAND 04/23: Blood pressure 178/78Hydralazine 50 mg 3 times daily. Amlodipine dose increased to 10 mg daily. 04/24: Blood pressure is 155/65. Continue antihypertensive medications. 04/25/2023: ANAND has resolved we will trial her on a lower dose lisinopril (3) ANAND (acute kidney injury): PLAN: Patient baseline creatinine runs between 1.01-1.25. Creatinine had jumped up from 1.23 to 2.46, probably from NSAIDs and lisinopril. But now down to 1.64. Monitor kidney function. 04/23: Creatinine 0.87. ANAND resolved. (4) Hypokalemia: PLAN: Resolved after replacement Check magnesium PLAN: Plan H/o CVA: Pt to be ASA and low-dose apixaban. Resume post operatively. Continue statin. Severe constipation: Patient on MiraLAX 17 g twice daily, senna S2 were ordered twice daily. Dulcolax 10 mg also being given intermittently. DVT: Lovenox Disposition: pt would require SNF upon discharge given her debility, lack of good social/physical support at home. Waiting on insurance approval. Charges/Coding Visit Charges Inpatient E&M: 74175 Subs Hosp L2 04/25/23 0942 <Electronically signed by Jeison Lamas MD> Cosigner Signature (if applicable): CC: ~ Signed [facility] Work Phone: 1(512) 490-462111-04-2023 Progress note Author Roger Alves [facility] April 24, 2023 2:56pm Note Date/Time April 24, 2023 9 :52am [facility] Medical Records Department [address] [place] [address] Progress Note - Hospitalist 04/24/2352 MR#: [id number] Acct: [id number] Name: ZEKE RAY Rep #:[id number] : 1970 52 From: Roger Broderick PCP: Care Physician,No Primary Status :ADM IN Location: [place] [address] Reason for Visit Reason for Visit: Diagnoses Hypokalemia (04/18/23) Essential (primary) hypertension (04/18/23) Hemiplegia and hemiparesis following cerebral infarction affecting left non- dominant side (04/18/23) Acute kidney failure, unspecified (04/18/23) Other symptoms and signs involving the musculoskeletal system (04/18/23) Displaced intertrochanteric fracture of left femur, initial encounter for closedfracture (04/18/23) Objective Data Objective Data Vital Signs: Vital Signs Temp Pulse Resp BP Pulse Ox O2 Del Method O2 Flow Rate 97.7 F L 85 16 151/65 H 97 Room Air 2 04/24/23 08:37 04/24/23 08:37 04/24/23 08:37 04/24/23 08:37 04/24/23 08:37 04/24/23 08:37 04/19/23 18:52 Oxygen Flow Rate (L/min) 2 Oxygen Delivery Method Room Air Weight: 128 lb 15.527 oz Body Mass Index (BMI) 22.1 Intake & Output: Intake and Output for Last 24 Hours 04/22/23 04/23/23 04/24/23 23:59 23:59 23:59 Intake Total 4067.50 / 4307.50 3524.17 / 3764.17 2036.25 / 2035.25 Output Total 2400 / 2900 3050 / 3550 500 / 500 Balance 1667.50 / 1407.50 474.17 / 214.17 1536.25 / 1536.25 Lab / Micro Data 04/23/23 06:24 04/23/23 06:24 Rhythm Strip Rhythm Strip: Sinus Rhythm Rate: 65 Ectopy: None Physical Exam Narrative Physical exam Patient is still has left lower extremity pain on extension. She states she didnot move her bowel. Dulcolax 10 mg ordered. Physical exam General: Alert, Oriented x3, Cooperative HEENT: Atraumatic, PERRLA, EOMI, Normocephalic Oral: Oral mucosa moist. No Gingival or Mucosal Lesions/ Ulcerations Neck: Supple, No JVD, Negative Carotid Bruits Lungs: Air entry diminished in bilateral lung bases. No crepitation/rhonchi Cardiovascular: Regular rate, Regular Rhythm, Normal S1, Normal S2, No murmurs Abdomen: Bowel Sounds Present, Soft, Non Tender, Non-Distended : Grady catheter. Dark urine. No renal angle tenderness. No suprapubic tenderness. Extremities: No edema, Capillary Refill Less than 3 Seconds Skin: No rashes, No breakdown Musculoskeletal: Left thigh and hip region tender. Dressing is dry. Left knee flexion deformity with severe limitation of ROM. Right lower extremity normal. Neurological: Cranial nerves II-XII grossly intact, DTR 2+/4. No acute focal neurological deficit. Psych/Mental Status: Flat affect. Assessment & Plan Assessment/Plan (1) Closed intertrochanteric fracture of left hip: QUALIFIERS: Encounter type: initial encounter Fracture alignment:displaced Qualified Code(s): S72.142A - Displaced intertrochanteric fracture ofleft femur, initial encounter for closed fracture PLAN: Left femoral neck intertrochanteric fracture with angulation Patient underwent a cephalo-medullary fixation of left hip on 04/19 Pain control Vitamin D level. Was 28.8. ergocalciferol weekly for 8 weeks. Per orthopedics, patient to be weightbearing as tolerated. Dressing change postop day 5 at which time the incision should be cleaned with warm water and antibacterial soap daily. Dry dressing change daily after this point. Follow-up with orthopedics in 2 weeks. 04/22: Continue PT and OT. Waiting for pre-CERT. No acute distress. 04/23: Still waiting for pre-CERT. Continue PT and OT. Patient has pain over left knee joint. (2) Accelerated hypertension: PLAN: Improved Not taking ANY medications as outpt which includes liinopril 40/d She received a 1x dose of lisinopril on 04/17 at 2200. Add amlodipine. Continue PRN hydralazine. Hold lisinopril given ANAND 04/23: Blood pressure 178/78Hydralazine 50 mg 3 times daily. Amlodipine dose increased to 10 mg daily. 04/24: Blood pressure is 155/65. Continue antihypertensive medications. (3) ANAND (acute kidney injury): PLAN: Patient baseline creatinine runs between 1.01-1.25. Creatinine had jumped up from 1.23 to 2.46, probably from NSAIDs and lisinopril. But now down to 1.64. Monitor kidney function. 04/23: Creatinine 0.87. ANAND resolved. (4) Hypokalemia: PLAN: Resolved after replacement Check magnesium PLAN: Plan H/o CVA: Pt to be ASA and low-dose apixaban. Resume post operatively. Continue statin. Severe constipation: Patient on MiraLAX 17 g twice daily, senna S2 were ordered twice daily. Dulcolax 10 mg also being given intermittently. Code: Patient is a DNR CCA is no intubation. Explained to patient that with surgery DNR_CCA will be revoked aT surgery time; and she will be resuscitated if indicated. DVT Prophylaxis: SCD and subcutaneous Lovenox ordered. Per orthopedics, for 3 weeks Disposition: pt would require SNF upon discharge given her debility, lack of good social/physical support at home. Waiting on insurance approval. As per previous hospitalist, her behavior is concerning for drug-seeking as shewas complaining of left knee and ankle pain but with distraction, she was not having any pain. Would be cautious in regards to narcotic administration for her. Charges/Coding Visit Charges Inpatient E&M: 61353 Subs Hosp L2 04/24/23 9733 <Electronically signed by Roger Alves MD> Cosigner Signature (if applicable): CC: ~ Signed [facility] Work Phone: 1(489) 627-148211-03-2023 Progress note Author Roger Alves [facility] April 23, 2023 4:45pm Note Date/Time April 23, 2023 4 :45pm [facility] Medical Records Department [address] [place] [address] Progress Note - Hospitalist 04/23/23 1641 MR#: [id number] Acct: [id number] Name: ZEKE RAY Rep #:[id number] : 1970 52 From: Roger Broderick PCP: Care Physician,No Primary Status :ADM IN Location: [place] [address] Reason for Visit Reason for Visit: Diagnoses Hypokalemia (04/18/23) Essential (primary) hypertension (04/18/23) Hemiplegia and hemiparesis following cerebral infarction affecting left non- dominant side (04/18/23) Acute kidney failure, unspecified (04/18/23) Other symptoms and signs involving the musculoskeletal system (04/18/23) Displaced intertrochanteric fracture of left femur, initial encounter for closedfracture (04/18/23) Objective Data Objective Data Vital Signs: Vital Signs Temp Pulse Resp BP Pulse Ox O2 Del Method O2 Flow Rate 98.2 F 63 16 178/78 H 97 Room Air 2 04/23/23 15:46 04/23/23 15:52 04/23/23 15:46 04/23/23 15:52 04/23/23 15:46 04/23/23 15:46 04/19/23 18:52 Oxygen Flow Rate (L/min) 2 Oxygen Delivery Method Room Air Weight: 128 lb 15.527 oz Body Mass Index (BMI) 22.1 Intake & Output: Intake and Output for Last 24 Hours 04/21/23 04/22/23 04/23/23 23:59 23:59 23:59 Intake Total 4627.92 / 4867.92 4067.50 / 4307.50 2480 / 2480 Output Total 2050 / 3550 2400 / 2900 2300 / 2300 Balance 2577.92 / 1317.92 1667.50 / 1407.50 180 / 180 Lab / Micro Data 04/23/23 06:24 04/23/23 06:24 Labs: Laboratory Results - last 24 hr 04/23/23 06:24: WBC 11.5 H, RBC 3.82 L, Hgb 10.7 L, Hct 33.8 L, MCV 88.5, MCH 28.0, MCHC 31.7 L, RDW Std Deviation 41.9, RDW Coeff of Jovani 12.9, Plt Count 245,MPV 12.9 H, Immature Gran % (Auto) 0.300, Neut % (Auto) 74.6 H, Lymph % (Auto) 12.6 L, [place] % (Auto) 8.1, Eos % (Auto) 4.1, Baso % (Auto) 0.3, Absolute Neuts (auto) 8.6 H, Absolute Lymphs (auto) 1.45, Nucleated RBC % 0, Sodium 140, Potassium 3.7, Chloride 112 H, Carbon Dioxide 22.0, Anion Gap 6, BUN 12, Creatinine 0.87, Estim Creat Clear Calc 63.83, Est GFR (MDRD) Af Amer 87, Est GFR (MDRD) Non-Af 72, BUN/Creatinine Ratio 13.9, Glucose 96, Calcium 8.6 Rhythm Strip Rhythm Strip: Sinus Rhythm Rate: 65 Ectopy: None Physical Exam Narrative Physical exam Patient is still has left lower extremity pain on extension. She states she didnot move her bowel. Physical exam General: Alert, Oriented x3, Cooperative HEENT: Atraumatic, PERRLA, EOMI, Normocephalic Oral: No Gingival or Mucosal Lesions/ Ulcerations Neck: Supple, No JVD, Negative Carotid Bruits Lungs: Air entry diminished in bilateral lung bases. No crepitation/rhonchi Cardiovascular: Regular rate, Regular Rhythm, Normal S1, Normal S2, No murmurs Abdomen: Bowel Sounds Present, Soft, Non Tender, Non-Distended : Grady catheter. Dark urine. No renal angle tenderness. No suprapubic tenderness. Extremities: No edema, Capillary Refill Less than 3 Seconds Skin: No rashes, No breakdown Musculoskeletal: Left thigh and hip region tender. Dressing is dry. Left knee flexion deformity. Right lower extremity normal. Neurological: Cranial nerves II-XII grossly intact, DTR 2+/4. No acute focal neurological deficit. Psych/Mental Status: Flat affect. Assessment & Plan Assessment/Plan (1) Closed intertrochanteric fracture of left hip: QUALIFIERS: Encounter type: initial encounter Fracture alignment:displaced Qualified Code(s): S72.142A - Displaced intertrochanteric fracture ofleft femur, initial encounter for closed fracture PLAN: Left femoral neck intertrochanteric fracture with angulation Patient underwent a cephalo-medullary fixation of left hip on 04/19 Pain control Vitamin D level. Was 28.8. ergocalciferol weekly for 8 weeks. Per orthopedics, patient to be weightbearing as tolerated. Dressing change postop day 5 at which time the incision should be cleaned with warm water and antibacterial soap daily. Dry dressing change daily after this point. Follow-up with orthopedics in 2 weeks. 04/22: Continue PT and OT. Waiting for pre-CERT. No acute distress. 04/23: Still waiting for pre-CERT. Continue PT and OT. Patient has pain over left knee joint. (2) Accelerated hypertension: PLAN: Improved Not taking ANY medications as outpt which includes liinopril 40/d She received a 1x dose of lisinopril on 04/17 at 2200. Add amlodipine. Continue PRN hydralazine. Hold lisinopril given ANAND 04/23: Blood pressure 178/78Hydralazine 50 mg 3 times daily. Amlodipine dose increased to 10 mg daily.. (3) ANAND (acute kidney injury): PLAN: Patient baseline creatinine runs between 1.01-1.25. Creatinine had jumped up from 1.23 to 2.46, probably from NSAIDs and lisinopril. But now down to 1.64. Monitor kidney function. 04/23: Creatinine 0.87. ANAND resolved. (4) Hypokalemia: PLAN: Resolved after replacement Check magnesium PLAN: Plan H/o CVA: Pt to be ASA and low-dose apixaban. Resume post operatively. Continue statin. Code: Patient is a DNR CCA is no intubation. Explained to patient that with surgery DNR_CCA will be revoked aT surgery time; and she will be resuscitated if indicated. DVT Prophylaxis: SCD and subcutaneous Lovenox ordered. Per orthopedics, for 3 weeks Disposition: pt would require SNF upon discharge given her debility, lack of good social/physical support at home. Waiting on insurance approval. As per previous hospitalist, her behavior is concerning for drug-seeking as shewas complaining of left knee and ankle pain but with distraction, she was not having any pain. Would be cautious in regards to narcotic administration for her. Charges/Coding Visit Charges Inpatient E&M: 24389 Subs Hosp L2 04/23/23 1645 <Electronically signed by Roger Alves MD> Cosigner Signature (if applicable): CC: ~ Signed [facility] Work Phone: 1(875) 983-271611-02-2023 Progress note Author Roger Alves [facility] April 22, 2023 3:25pm Note Date/Time April 22, 2023 3 :18pm [facility] Medical Records Department [address] [place] [address] Progress Note - Hospitalist 04/22/23 1510 MR#: [id number] Acct: [id number] Name: ZEKE RAY Rep #:[id number] : 1970 52 From: Roger Broderick PCP: Care Physician,No Primary Status :ADM IN Location: [place] [address] Reason for Visit Reason for Visit: Diagnoses Hypokalemia (04/18/23) Essential (primary) hypertension (04/18/23) Hemiplegia and hemiparesis following cerebral infarction affecting left non- dominant side (04/18/23) Acute kidney failure, unspecified (04/18/23) Other symptoms and signs involving the musculoskeletal system (04/18/23) Displaced intertrochanteric fracture of left femur, initial encounter for closedfracture (04/18/23) Objective Data Objective Data Vital Signs: Vital Signs Temp Pulse Resp BP Pulse Ox O2 Del Method O2 Flow Rate 98 F 92 16 159/91 H 98 Room Air 2 04/22/23 13:47 04/22/23 13:47 04/22/23 13:47 04/22/23 13:47 04/22/23 13:47 04/22/23 13:47 04/19/23 18:52 Oxygen Flow Rate (L/min) 2 Oxygen Delivery Method Room Air Weight: 128 lb 15.527 oz Body Mass Index (BMI) 22.1 Intake & Output: Intake and Output for Last 24 Hours 04/20/23 04/21/23 04/22/23 23:59 23:59 23:59 Intake Total 2960 / 3660 4627.92 / 4867.92 2135.83 / 2135.83 Output Total 1300 / 1700 2050 / 3550 1850 / 1850 Balance 0 / 1960 2577.92 / 1317.92 285.83 / 285.83 Lab / Micro Data 04/22/23 06:11 04/22/23 06:11 Labs: Laboratory Results - last 24 hr 04/22/23 06:11: WBC 12.1 H, RBC 4.14 L, Hgb 11.6 L, Hct 36.2 L, MCV 87.4, MCH 28.0, MCHC 32.0, RDW Std Deviation 41.8, RDW Coeff of Jovani 13.1, Plt Count 247, MPV 12.7 H, Immature Gran % (Auto) 0.600, Neut % (Auto) 77.8 H, Lymph % (Auto) 9.1 L, [place] % (Auto) 9.5, Eos % (Auto) 2.6, Baso % (Auto) 0.4, Absolute Neuts (auto) 9.4 H, Absolute Lymphs (auto) 1.10, Nucleated RBC % 0, Sodium 142, Potassium 3.5, Chloride 113 H, Carbon Dioxide 22.0, Anion Gap 7, BUN 14, Creatinine 0.93, Estim Creat Clear Calc 59.72, Est GFR (MDRD) Af Amer 81, Est GFR (MDRD) Non-Af 67, BUN/Creatinine Ratio 15.1, Glucose 111 H, Calcium 8.7 04/22/23 : Urine Opiates Screen POSITIVE H, Urine Methadone Screen NEGATIVE, Ur Barbiturates Screen NEGATIVE, Ur Phencyclidine Scrn NEGATIVE, Ur Amphetamines Screen NEGATIVE, MDMA (Ecstasy) Screen NEGATIVE, U Benzodiazepines Scrn NEGATIVE, Urine Cocaine Screen NEGATIVE, U Cannabinoids Screen POSITIVE H, Ur Drug Screen Comment Rhythm Strip Rhythm Strip: Sinus Rhythm Rate: 65 Ectopy: None Physical Exam Narrative Physical exam Patient is still has left lower extremity pain on extension. Moving her bowel. Patient wants to keep Grady catheter as she cannot sit down for urination. Physical exam General: Alert, Oriented x3, Cooperative HEENT: Atraumatic, PERRLA, EOMI, Normocephalic Oral: No Gingival or Mucosal Lesions/ Ulcerations Neck: Supple, No JVD, Negative Carotid Bruits Lungs: Air entry diminished in bilateral lung bases. No crepitation/rhonchi Cardiovascular: Regular rate, Regular Rhythm, Normal S1, Normal S2, No murmurs Abdomen: Bowel Sounds Present, Soft, Non Tender, Non-Distended : Grady catheter. Dark urine. No renal angle tenderness. No suprapubic tenderness. Extremities: No edema, Capillary Refill Less than 3 Seconds Skin: No rashes, No breakdown Musculoskeletal: Left thigh and hip region tender. Dressing is dry. Left knee flexion deformity. Right lower extremity normal. Neurological: Cranial nerves II-XII grossly intact, DTR 2+/4. No acute focal neurological deficit. Psych/Mental Status: Flat affect. Assessment & Plan Assessment/Plan (1) Closed intertrochanteric fracture of left hip: QUALIFIERS: Encounter type: initial encounter Fracture alignment:displaced Qualified Code(s): S72.142A - Displaced intertrochanteric fracture ofleft femur, initial encounter for closed fracture PLAN: Left femoral neck intertrochanteric fracture with angulation Patient underwent a cephalo-medullary fixation of left hip on 04/19 Pain control Vitamin D level. Was 28.8. ergocalciferol weekly for 8 weeks. Per orthopedics, patient to be weightbearing as tolerated. Dressing change postop day 5 at which time the incision should be cleaned with warm water and antibacterial soap daily. Dry dressing change daily after this point. Follow-up with orthopedics in 2 weeks. 04/22: Continue PT and OT. Waiting for pre-CERT. No acute distress. (2) Accelerated hypertension: PLAN: Improved Not taking ANY medications as outpt which includes liinopril 40/d She received a 1x dose of lisinopril on 04/17 at 2200. Add amlodipine. Continue PRN hydralazine. Hold lisinopril given ANAND (3) ANAND (acute kidney injury): PLAN: Patient baseline creatinine runs between 1.01-1.25. Creatinine had jumped up from 1.23 to 2.46, probably from NSAIDs and lisinopril. But now down to 1.64. Monitor kidney function. (4) Hypokalemia: PLAN: Resolved after replacement Check magnesium PLAN: Plan H/o CVA: Pt to be ASA and low-dose apixaban. Resume post operatively. Continue statin. Code: Patient is a DNR CCA is no intubation. Explained to patient that with surgery DNR_CCA will be revoked aT surgery time; and she will be resuscitated if indicated. DVT Prophylaxis: SCD and subcutaneous Lovenox ordered. Per orthopedics, for 3 weeks Disposition: pt would require SNF upon discharge given her debility, lack of good social/physical support at home. Waiting on insurance approval. As per previous hospitalist, her behavior is concerning for drug-seeking as shewas complaining of left knee and ankle pain but with distraction, she was not having any pain. Would be cautious in regards to narcotic administration for her. Charges/Coding Visit Charges Inpatient E&M: 15249 Subs Hosp L2 04/22/23 1525 <Electronically signed by Roger Alves MD> Cosigner Signature (if applicable): CC: ~ Signed [facility] Work Phone: 1(213) 764-500211-02-2023 Progress note Author [facility] April 22, 2023 3:58am Note Date/Time April 22, 2023 3 :58am [facility] Medical Records Department [address] [facility] [place] [address] Progress Note - Hospitalist 04/22/23 035 MR#: [id number] Acct: [id number] Name: ZEKE RAY Rep #:[id number] : 1970 52 From: Gay Pantoja MD PCP: Care Physician,No Primary Status :ADM IN Location: [place] [address] Hospitalist Note Staff concerned as following friend present she seemed more lethargic and sedate, diaphoretic with polysubstance abuse history per chart review. 04/22/23 0358 <Electronically signed by Gay Pantoja MD> Cosigner Signature (if applicable): CC: ~ Signed [facility] Work Phone: [phone] Progress note Author [facility] April 21, 2023 5:34pm Note Date/Time April 21, 2023 5 :34pm [facility] Medical Records Department [address] [place] [address] Progress Note - Hospitalist 04/21/23 1729 MR#: [id number] Acct: [id number] Name: ZEKE RAY Rep #:[id number] : 1970 52 From: Roger Broderick PCP: Care Physician,No Primary Status :ADM IN Location: [place] [address] Reason for Visit Reason for Visit: Diagnoses Hypokalemia (04/18/23) Essential (primary) hypertension (04/18/23) Hemiplegia and hemiparesis following cerebral infarction affecting left non- dominant side (04/18/23) Acute kidney failure, unspecified (04/18/23) Other symptoms and signs involving the musculoskeletal system (04/18/23) Displaced intertrochanteric fracture of left femur, initial encounter for closedfracture (04/18/23) Subjective Subjective Follow-up for left hip pain. Patient had left hip intertrochanteric fracture. She complains of severe pain over left thigh. Could not extend her left knee. Objective Data Objective Data Vital Signs: Vital Signs Temp Pulse Resp BP Pulse Ox O2 Del Method O2 Flow Rate 98.0 F 74 18 174/55 H 95 Room Air 2 04/21/23 15:00 04/21/23 16:03 04/21/23 15:00 04/21/23 16:03 04/21/23 15:00 04/21/23 15:12 04/19/23 18:52 Oxygen Flow Rate (L/min) 2 Oxygen Delivery Method Room Air Weight: 128 lb 15.527 oz Body Mass Index (BMI) 22.1 Intake & Output: Intake and Output for Last 24 Hours 04/19/23 04/20/23 04/21/23 23:59 23:59 23:59 Intake Total 1509 2960 / 3660 4627.92 / 4627.92 Output Total 525 / 725 1300 / 1700 2049 / 2049 Balance 985 / 1285 1659 / 1960 2577.92 / 2577.92 Lab / Micro Data 04/20/23 06:50 04/20/23 06:50 Rhythm Strip Rhythm Strip: Sinus Rhythm Rate: 65 Ectopy: None Physical Exam Narrative Physical exam General: Alert, Oriented x3, Cooperative HEENT: Atraumatic, PERRLA, EOMI, Normocephalic Oral: No Gingival or Mucosal Lesions/ Ulcerations Neck: Supple, No JVD, Negative Carotid Bruits Lungs: Air entry diminished in bilateral lung bases. No crepitation/rhonchi Cardiovascular: Regular rate, Regular Rhythm, Normal S1, Normal S2, No murmurs Abdomen: Bowel Sounds Present, Soft, Non Tender, Non-Distended : Grady catheter. Dark urine. No renal angle tenderness. No suprapubic tenderness. Extremities: No edema, Capillary Refill Less than 3 Seconds Skin: No rashes, No breakdown Musculoskeletal: Left thigh and hip region tender. Dressing is dry. Left knee flexion deformity. Right lower extremity normal. Neurological: Cranial nerves II-XII grossly intact, DTR 2+/4. No acute focal neurological deficit. Psych/Mental Status: Flat affect. Assessment & Plan Assessment/Plan (1) Closed intertrochanteric fracture of left hip: QUALIFIERS: Encounter type: initial encounter Fracture alignment:displaced Qualified Code(s): S72.142A - Displaced intertrochanteric fracture ofleft femur, initial encounter for closed fracture PLAN: Left femoral neck intertrochanteric fracture with angulation Patient underwent a cephalo-medullary fixation of left hip on 04/19 Pain control Vitamin D level. Was 28.8. ergocalciferol weekly for 8 weeks. Per orthopedics, patient to be weightbearing as tolerated. Dressing change postop day 5 at which time the incision should be cleaned with warm water and antibacterial soap daily. Dry dressing change daily after this point. Follow-up with orthopedics in 2 weeks. (2) Accelerated hypertension: PLAN: Improved Not taking ANY medications as outpt which includes liinopril 40/d She received a 1x dose of lisinopril on 04/17 at 2200. Add amlodipine. Continue PRN hydralazine. Hold lisinopril given ANAND (3) ANAND (acute kidney injury): PLAN: Patient baseline creatinine runs between 1.01-1.25. Creatinine had jumped up from 1.23 to 2.46, probably from NSAIDs and lisinopril. But now down to 1.64. Monitor kidney function. (4) Hypokalemia: PLAN: Resolved after replacement Check magnesium PLAN: Plan H/o CVA: Pt to be ASA and low-dose apixaban. Resume post operatively. Continue statin. Code: Patient is a DNR CCA is no intubation. Explained to patient that with surgery DNR_CCA will be revoked aT surgery time; and she will be resuscitated if indicated. DVT Prophylaxis: SCD and subcutaneous Lovenox ordered. Per orthopedics, for 3 weeks Disposition: pt would require SNF upon discharge given her debility, lack of good social/physical support at home. Waiting on insurance approval. Very concerning that patient is drug-seeking as she was complaining of left kneeand ankle pain but with distraction, she was not having any pain. Would be cautious in regards to narcotic administration for her. Charges/Coding Visit Charges Inpatient E&M: 88770 Subs Hosp L2 04/21/23 5883 <Electronically signed by Roger Alves MD> Cosigner Signature (if applicable): CC: ~ Signed [facility] Work Phone: 1(194) 904-693110-31-2023 Progress note Author Erik Pineda [facility] April 20, 2023 4:39pm Note Date/Time April 20, 2023 8 :56am [facility] Medical Records Department [address] [facility] [place] [address] Progress Note - Hospitalist 04/20/23 0852 MR#: [id number] Acct: [id number] Name: ZEKE RAY Rep #:[id number] : 1970 52 From: Erik Pineda DO PCP: Care Physician,No Primary Status :ADM IN Location: [place] [id number] Reason for Visit Reason for Visit: Diagnoses Hypokalemia (04/18/23) Essential (primary) hypertension (04/18/23) Hemiplegia and hemiparesis following cerebral infarction affecting left non- dominant side (04/18/23) Acute kidney failure, unspecified (04/18/23) Other symptoms and signs involving the musculoskeletal system (04/18/23) Displaced intertrochanteric fracture of left femur, initial encounter for closedfracture (04/18/23) Subjective Subjective Complaining of pain. Saying the pain was in her knee. Said the pain got worse when he took a blanket off her knee and saying that her ankle was also hurting. Objective Data Objective Data Vital Signs: Vital Signs Temp Pulse Resp BP Pulse Ox O2 Del Method O2 Flow Rate 36.8 C 83 16 129/66 H 94 Nasal Cannula 2 04/19/23 18:52 04/19/23 18:52 04/19/23 18:52 04/19/23 18:52 04/19/23 18:52 04/19/23 18:52 04/19/23 18:52 Oxygen Flow Rate (L/min) 2 Oxygen Delivery Method Nasal Cannula Weight: 58.5 kg Body Mass Index (BMI) 22.1 Intake & Output: Intake and Output for Last 24 Hours 04/18/23 04/19/23 04/20/23 23:59 23:59 23:59 Intake Total 880 / 880 1509 1905 / 1905 Output Total 750 / 750 525 / 725 500 / 500 Balance 130 / 130 985 / 1285 1405 / 1405 Lab / Micro Data 04/20/23 06:50 04/20/23 06:50 Labs: Laboratory Results - last 24 hr 04/18/23 03:47: Vitamin D 25-Hydroxy 28.8 04/20/23 06:50: WBC 19.9 H, RBC 3.92 L, Hgb 11.0 L, Hct 35.0 L, MCV 89.3, MCH 28.1, MCHC 31.4 L, RDW Std Deviation 42.2, RDW Coeff of Jovani 12.9, Plt Count 222,MPV 12.1 H, Immature Gran % (Auto) 0.800, Neut % (Auto) 89.6 H, Lymph % (Auto) 3.5 L, [place] % (Auto) 5.9, Eos % (Auto) 0.0, Baso % (Auto) 0.2, Absolute Neuts (auto) 17.8 H, Absolute Lymphs (auto) 0.69 L, Nucleated RBC % 0, Sodium 140, Potassium 4.2, Chloride 113 H, Carbon Dioxide 26.0, Anion Gap 1 L, BUN 34 H, Creatinine 1.64 H, Estim Creat Clear Calc 33.86, Est GFR (MDRD) Af Amer 42 L, Est GFR (MDRD) Non-Af 35 L, BUN/Creatinine Ratio 20.7 H, Glucose 140 H, Calcium 8.7, Magnesium 2.5 Radiography Diagnostic Testing: Radiology Impression Hip X-Ray 04/19/23 14:00 IMPRESSION: Intraoperative digital documentation views. Electronically Signed: Adriel Harris MD at 15:08 EDT , Hip X-Ray 04/19/23 15:16 IMPRESSION: ORIF of the left proximal femur with no complicating features. Electronically Signed: Adriel Harris MD at 15:37 EDT , Rhythm Strip Rhythm Strip: Sinus Rhythm Rate: 65 Ectopy: None Physical Exam Const Constitutional Narrative: Appears older than stated age. Anxious. Removed the blanket from her left kneeand she said it hurt. When she was distracted I was actually tapping on her knee and she had no pain whatsoever. Sunitha said that her left ankle was hurting. Resp normal respiratory effort, no retractions, no use of accessory muscles and clearto auscultation bilaterally Cardio regular rate, regular rhythm, S1 normal heart sound and S2 normal heart sound GI normal to inspection, nondistended, normoactive bowel sounds, soft to palpation,non-tender and non-distended Extremity normal to inspection Assessment & Plan Assessment/Plan (1) Closed intertrochanteric fracture of left hip: QUALIFIERS: Encounter type: initial encounter Fracture alignment:displaced Qualified Code(s): S72.142A - Displaced intertrochanteric fracture ofleft femur, initial encounter for closed fracture PLAN: L femoral neck intertrochanteric fracture with angulation Patient underwent a cephalo-medullary fixation of left hip on 04/19 Pain control Vitamin D level. Was 28.8. Will start ergocalciferol weekly for 8 weeks. Per orthopedics, patient to be weightbearing as tolerated. Dressing change postop day 5 at which time the incision should be cleaned with warm water and antibacterial soap daily. Dry dressing change daily after this point. Follow-up with orthopedics in 2 weeks. (2) Accelerated hypertension: PLAN: Improved Not taking ANY medications as outpt which includes liinopril 40/d She received a 1x dose of lisinopril on 04/17 at 2200. Add amlodipine. Continue PRN hydralazine. Hold lisinopril given ANAND (3) ANAND (acute kidney injury): PLAN: Resolved. Creatinine had jumped up from 1.23 to 2.46, but now down to 1.64. Pt had received ketorolac on 04/18 and lisinopril. Both held. She also received IVF. Monitor (4) Hypokalemia: PLAN: Resolved after replacement Check magnesium PLAN: Plan H/o CVA: Pt to be ASA and low-dose apixaban. Resume post operatively. Continue statin. Code: Patient is a DNR CCA is no intubation. Explained to patient that with surgery DNR_CCA will be revoked aT surgery time; and she will be resuscitated if indicated. DVT Prophylaxis: SCD and subcutaneous Lovenox ordered. Per orthopedics, for 3 weeks Disposition: pt would require SNF upon discharge given her debility, lack of good social/physical support at home. Waiting on insurance approval. Very concerning that patient is drug-seeking as she was complaining of left kneeand ankle pain but with distraction, she was not having any pain. Would be cautious in regards to narcotic administration for her. Charges/Coding Visit Charges Inpatient E&M: 60708 Subs Hosp L2 04/20/23 1631 <Electronically signed by Erik Pineda DO> Cosigner Signature (if applicable): CC: ~ Signed [facility] Work Phone: 1(193) 849-991410-31-2023 Progress note Author [facility] April 20, 2023 3:54pm Note Date/Time April 20, 2023 3 :51pm [facility] Medical Records Department [address] [place] [address] Progress Note - Orthopedic 04/20/23 1548 MR#: [id number] Acct: [id number] Name: ZEKE RAY Rep #:[id number] : 1970 52 From: Hakeem Velez DO PCP: Care Physician,No Primary Status :ADM IN Location: [facility] [id number] Subjective Subjective Patient has some psychological distress from all is going on. She does complainof pain but it seems to be controlled she has been up with physical therapy but she states it did not go well. Objective Data Objective Data Vital Signs: Vital Signs Temp Pulse Resp BP Pulse Ox O2 Del Method O2 Flow Rate 98.4 F 85 16 157/90 H 95 Room Air 2 04/20/23 13:31 04/20/23 13:31 04/20/23 13:31 04/20/23 13:31 04/20/23 13:31 04/20/23 13:31 04/19/23 18:52 Oxygen Flow Rate (L/min) 2 Oxygen Delivery Method Room Air Weight: 128 lb 15.527 oz Body Mass Index (BMI) 22.1 Intake & Output: Intake and Output for Last 24 Hours 04/18/23 04/19/23 04/20/23 23:59 23:59 23:59 Intake Total 880 / 880 1509 / 2009 1959 / 1959 Output Total 750 / 750 525 / 725 800 / 800 Balance 130 / 130 985 / 1285 1160 / 1160 Lab / Micro Data 04/20/23 06:50 04/20/23 06:50 Labs: Laboratory Results - last 24 hr 04/20/23 06:50: WBC 19.9 H, RBC 3.92 L, Hgb 11.0 L, Hct 35.0 L, MCV 89.3, MCH 28.1, MCHC 31.4 L, RDW Std Deviation 42.2, RDW Coeff of Jovani 12.9, Plt Count 222,MPV 12.1 H, Immature Gran % (Auto) 0.800, Neut % (Auto) 89.6 H, Lymph % (Auto) 3.5 L, [place] % (Auto) 5.9, Eos % (Auto) 0.0, Baso % (Auto) 0.2, Absolute Neuts (auto) 17.8 H, Absolute Lymphs (auto) 0.69 L, Nucleated RBC % 0, Sodium 140, Potassium 4.2, Chloride 113 H, Carbon Dioxide 26.0, Anion Gap 1 L, BUN 34 H, Creatinine 1.64 H, Estim Creat Clear Calc 33.86, Est GFR (MDRD) Af Amer 42 L, Est GFR (MDRD) Non-Af 35 L, BUN/Creatinine Ratio 20.7 H, Glucose 140 H, Calcium 8.7, Magnesium 2.5 Rhythm Strip Rhythm Strip: Sinus Rhythm Rate: 65 Ectopy: None Physical Exam Const no apparent distress General Appearance: cooperative Extremity Extremity Narrative: Hip dressing clean dry and intact compartments soft she is able to plantarflex and dorsiflex her ankle but states that she has chronic numbness in her leg fromher multiple strokes which is unchanged Assessment & Plan Assessment/Plan (1) Closed intertrochanteric fracture of left hip: QUALIFIERS: Encounter type: initial encounter Fracture alignment:displaced Qualified Code(s): S72.142A - Displaced intertrochanteric fracture ofleft femur, initial encounter for closed fracture PLAN: Plan Day #1 left trochanteric femoral nail for basicervical femoral neck fracture PT/OT weightbearing as tolerated DVT prophylaxis Lovenox 40 mg SQ daily x 3 weeks dressing change POD #5 at which time incision should be cleand with warm water and antibacterial soap daily and have dry dressing changed daily after this point. f/u in office 2weeks 04/20/23 0114 <Electronically signed by Hakeem Velez DO> Cosigner Signature (if applicable): CC: ~ Signed [facility] Work Phone: 1(853) 444-898410-30-2023 Progress note Author Erik Pineda [facility] April 19, 2023 2:29pm Note Date/Time April 19, 2023 8 :25am [facility] Medical Records Department [address] [place] [id number] Progress Note - Hospitalist 04/19/23 0822 MR#: [id number] Acct: [id number] Name: ZEKE RAY Rep #:[id number] : 1970 52 From: Erik Pineda DO PCP: Care Physician,No Primary Status :ADM IN Location: [place] [address] Reason for Visit Reason for Visit: Diagnoses Essential (primary) hypertension (04/18/23) Hemiplegia and hemiparesis following cerebral infarction affecting left non- dominant side (04/18/23) Other symptoms and signs involving the musculoskeletal system (04/18/23) Displaced intertrochanteric fracture of left femur, initial encounter for closedfracture (04/18/23) Subjective Subjective Still with left hip pain. Objective Data Objective Data Vital Signs: Vital Signs Temp Pulse Resp BP Pulse Ox O2 Del Method 36.1 C L 93 18 139/93 H 97 Room Air 04/19/23 05:46 04/19/23 05:46 04/19/23 05:46 04/19/23 05:46 04/19/23 05:46 04/19/23 05:46 Oxygen Delivery Method Room Air Weight: 58.5 kg Body Mass Index (BMI) 22.1 Intake & Output: Intake and Output for Last 24 Hours 04/17/23 04/18/2304/19/23 23:59 23:59 23:59 Intake Total 880 / 880 Output Total 750 / 750 400 / 400 Balance 130 / 130 -400 / -400 Lab / Micro Data 04/18/23 03:47 04/19/23 05:41 Labs: Laboratory Results - last 24 hr 04/18/23 09:30: Blood Type O POSITIVE, Antibody Screen NEGATIVE 04/19/23 05:41: Sodium 136, Potassium 3.2 L, Chloride 106, Carbon Dioxide 22.0, Anion Gap 8, BUN 33 H, Creatinine 2.46 H, Estim Creat Clear Calc 22.58, Est GFR (MDRD) Af Amer 26 L, Est GFR (MDRD) Non-Af 22 L, BUN/Creatinine Ratio 13.4, Glucose 108 H, Calcium 9.4 Rhythm Strip Rhythm Strip: Sinus Rhythm Rate: 65 Ectopy: None Physical Exam Const alert and no apparent distress Constitutional Narrative: no wearing gown. breast exposed upon arrival. placed blanket over. Extremity normal to inspection Assessment & Plan Assessment/Plan (1) Closed intertrochanteric fracture of left hip: QUALIFIERS: Encounter type: initial encounter Fracture alignment:displaced Qualified Code(s): S72.142A - Displaced intertrochanteric fracture ofleft femur, initial encounter for closed fracture PLAN: L femoral neck intertrochanteric fracture with angulation Emergent department doctor discussed the case with Dr. Velez who stated that because of patient elevated blood pressure the earliest day that patient can have surgery would be 04/19/2023. Inpatient consult for orthopedic surgery. Pain control Check vitamin D level. (2) Accelerated hypertension: PLAN: Improved Not taking ANY medications as outpt which includes liinopril 40/d She received a 1x dose of lisinopril on 04/17 at 2200. Add amlodipine. Continue PRN hydralazine. Hold lisinopril given ANAND (3) ANAND (acute kidney injury): PLAN: Creatinine jump up from 1.23 to 2.46 Did receive ketorolac on 04/18. Hold lisinopril IVF Monitor (4) Hypokalemia: PLAN: Replace Check magnesium PLAN: Plan H/o CVA: Pt to be ASA and low-dose apixaban. Resume post operatively. Continue statin. Code: Patient is a DNR CCA is no intubation. Explained to patient that with surgery DNR_CCA will be revoked aT surgery time; and she will be resuscitated if indicated. DVT Prophylaxis: SCD and subcutaneous Lovenox ordered. Charges/Coding Visit Charges Inpatient E&M: 67464 Subs Hosp L2 04/19/23 1429 <Electronically signed by Erik Pineda DO> Cosigner Signature (if applicable): CC: ~ Signed [facility] Work Phone: [phone]) 891-669110-30-2023 Procedure [facility] 04-18-2023 Progress note Author Erik Pineda [facility] April 18, 2023 12:57pm Note Date/Time April 18, 2023 8 :40am [facility] Medical Records Department [address] [facility] [place] [address] Progress Note - Hospitalist 04/18/23 0834 MR#: [id number] Acct: [id number] Name: ZEKE RAY Rep #:[id number] : 1970 52 From: Erik Pineda DO PCP: Care Physician,No Primary Status :ADM IN Location: [place] [address] Reason for Visit Reason for Visit: Diagnoses Displaced intertrochanteric fracture of left femur, initial encounter for closedfracture (04/18/23) Subjective Subjective Complaining of hip pain. States she ran out medications as to why she was not taking them. Objective Data Objective Data Vital Signs: Vital Signs Temp Pulse Resp BP Pulse Ox O2 Del Method 36.4 C L 76 16 214/105 H 95 Room Air 04/17/23 21:22 04/18/23 02:44 04/18/23 01:53 04/18/23 02:44 04/18/23 01:53 04/17/23 22:21 Oxygen Delivery Method Room Air Weight: 58.5 kg Body Mass Index (BMI) 22.1 Intake & Output: Intake and Output for Last 24 Hours 04/16/23 04/17/23 04/18/23 23:59 23:59 23:59 Output Total 300 / 300 Balance -300 / -300 Lab / Micro Data 04/18/23 03:47 04/18/23 03:47 Labs: Laboratory Results - last 24 hr 04/17/23 21:40: Urine Color Yellow, Urine Clarity Clear, Urine pH 8.0, Ur Specific [place] 1.010, Urine Protein 15 H, Urine Glucose (UA) Normal, Urine Ketones Negative, Urine Occult Blood Negative, Urine Nitrite Negative, Urine Bilirubin Negative, Urine Urobilinogen Normal, Ur Leukocyte Esterase Negative, Urine RBC 0 SEEN, Urine WBC 0 SEEN, Ur Squamous Epith Cells 0 SEEN, Urine Bacteria 0 SEEN, Urine Mucus 0 SEEN 04/17/23 22:40: WBC 23.4 H, RBC 4.96, Hgb 13.9, Hct 41.9, MCV 84.5, MCH 28.0, MCHC 33.2, RDW Std Deviation 37.9, RDW Coeff of Jovani 12.4, Plt Count 261, MPV 12.4 H, Immature Gran % (Auto) 0.800, Neut % (Auto) 93.2 H, Lymph % (Auto) 2.0 L, [place] % (Auto) 3.8, Eos % (Auto) 0.0, Baso % (Auto) 0.2, Absolute Neuts (auto) 21.8 H, Absolute Lymphs (auto) 0.47 L, Nucleated RBC % 0, Differential Comment SCANNED, Sodium 139, Potassium 3.2 L, Chloride 106, Carbon Dioxide 25.0, Anion Gap 8, BUN 14, Creatinine 1.15 H, Estim Creat Clear Calc 42.20, Est GFR (MDRD) Af Amer 63, Est GFR (MDRD) Non-Af 52 L, BUN/Creatinine Ratio 12.2, Glucose 138 H, Calcium 9.4 04/18/23 03:47: WBC 21.5 H, RBC 4.93, Hgb 14.1, Hct 42.7, MCV 86.6, MCH 28.6, MCHC 33.0, RDW Std Deviation 40.0, RDW Coeff of Jovani 12.7, Plt Count 247, MPV 11.9, Immature Gran % (Auto) 0.500, Neut % (Auto) 90.1 H, Lymph % (Auto) 4.5 L, [place] % (Auto) 4.6, Eos % (Auto) 0.1, Baso % (Auto) 0.2, Absolute Neuts (auto) 19.4 H, Absolute Lymphs (auto) 0.97, Nucleated RBC % 0, Sodium 136, Potassium 3.2 L, Chloride 107, Carbon Dioxide 24.0, Anion Gap 5, BUN 14, Creatinine 1.23 H, Estim Creat Clear Calc 45.15, Est GFR (MDRD) Af Amer 58 L, Est GFR (MDRD) Non-Af 48 L, BUN/Creatinine Ratio 11.4, Glucose 133 H, Calcium 9.3, Total Bilirubin 0.50, AST 11 L, ALT 25, Alkaline Phosphatase 50, Total Protein 8.0, Albumin 3.7,Globulin 4.3 H, Albumin/Globulin Ratio 0.9 Radiography Diagnostic Testing: Radiology Impression Femur X-Ray 04/17/23 22:09 IMPRESSION: Fracture involving the left femoral neck/intertrochanteric region with near 90 degrees angulation as described. No dislocation. Electronically Signed: Madeline Squires MD at 0:29 EDT Reading Location ID and State: [email or web address] / [employer] , Service support , Ankle X-Ray 04/17/23 23:35 IMPRESSION: Diffuse osteopenia, otherwise no acute fracture or subluxation. Electronically Signed: Madeline Squires MD at 0:28 EDT , Chest X-Ray 04/18/23 00:20 IMPRESSION: No acute cardiopulmonary disease. Electronically Signed: Madeline Squires MD at 0:44 EDT , Rhythm Strip Rhythm Strip: Sinus Rhythm Rate: 65 Ectopy: None Physical Exam Const alert and no apparent distress Constitutional Narrative: appears older than stated age. HEENT head/scalp atraumatic and moist oral mucous membranes Neuro Sensorium / Orientation: awake and alert Psych affect normal Assessment & Plan Assessment/Plan (1) Closed intertrochanteric fracture of left hip: QUALIFIERS: Encounter type: initial encounter Fracture alignment:displaced Qualified Code(s): S72.142A - Displaced intertrochanteric fracture ofleft femur, initial encounter for closed fracture PLAN: L femoral neck intertrochanteric fracture with angulation Emergent department doctor discussed the case with Dr. Velez who stated that because of patient elevated blood pressure the earliest day that patient can have surgery would be 04/19/2023. Inpatient consult for orthopedic surgery. Pain control Check vitamin D level. (2) Accelerated hypertension: PLAN: Ongoing Not taking ANY medications as outpt which includes liinopril 40/d She received a 1x dose of lisinopril on 04/17 at 2200. Continue 40/d of lisinopril. Add amlodipine. Continue PRN hydralazine. PLAN: Plan H/o CVA: Pt to be ASA and low-dose apixaban. Resume post operatively. Continue statin. Code: Patient is a DNR CCA is no intubation. Explained to patient that with surgery DNR_CCA will be revoked aT surgery time; and she will be resuscitated if indicated. DVT Prophylaxis: SCD and subcutaneous Lovenox ordered. Charges/Coding Visit Charges Inpatient E&M: 67691 Subs Hosp L2 04/18/23 1257 <Electronically signed by Erik Pineda DO> Cosigner Signature (if applicable): CC: ~ Signed [facility] Work Phone: 1(248) 764-220010-29-2023 Consult note Author [facility] April 18, 2023 11:08am Note Date/Time April 18, 2023 9 :02am [facility] Medical Records Department [address] [place] [address] Consultation 04/18/23 0856 MR#: [id number] Acct: [id number] Name: ZEKE RAY Rep #:[id number] : 1970 52 From: Hakeem Velez DO PCP: Care Physician,No Primary Status :ADM IN Location: [place] [id number] Assessment & Plan Assessment/Plan (1) Hemiparesis affecting left side as late effect of stroke: (2) Left leg weakness: (3) Closed intertrochanteric fracture of left hip: QUALIFIERS: Encounter type: initial encounter Fracture alignment:displaced Qualified Code(s): S72.142A - Displaced intertrochanteric fracture ofleft femur, initial encounter for closed fracture PLAN: Plan Basicervical left femoral neck fracture History of left-sided hemiparesis Significantly elevated blood pressures due to noncompliance on admission Plan for left hip trochanteric femoral nail 04/19/2023 if medically cleared Antibiotic on-call to the OR Consent signed HPI Consult Data Date of Consult: 04/18/23 HPI Narrative HPI Narrative: ZEKE RAY, is a 52 F with history of left-sided hemiparesis after CVA who ambulates with a cane who presents after ground-level fall left hip sustaining an intertrochanteric left hip fracture. [facility] Medical History Alcohol abuse CVA (cerebral vascular accident) CVA (cerebral vascular accident) Depression Hepatitis B Hidradenitis suppurativa Hypertension Hypertensive emergency Hypertensive urgency Irregular heart beat Ischemic cerebrovascular accident (CVA) Left axillary hidradenitis Smoker Tobacco use Vision loss of left eye Vision loss of right eye Home Medications aspirin 81 mg chewable tablet 81 mg PO DAILY heart health 07/02/22 [History Last Taken Unknown] multivitamin 1 cap PO DAILY supplement 09/24/22 [History Last Taken Unknown] polyethylene glycol 3350 17 gram oral powder packet 17 g PO DAILY Check with primary doctor 10/18/22 [History Last Taken Unknown] atorvastatin 40 mg tablet 80 mg (2 x 40 mg) PO QHS CHOLESTEROL #0 tabs 10/20/22 [Rx Last Taken Unknown] lisinopril 20 mg tablet 40 mg (2 x 20 mg) PO DAILY blood pressure 30 days #0 tabs 10/20/22 [Rx Last Taken 10/14/22] nicotine 21 mg/24 hr daily transdermal patch 21 mg transdermal DAILY Check with primary doctor 30 days #30 ea 10/20/22 [Rx Last Taken Unknown] rivaroxaban 2.5 mg tablet (Xarelto) 2.5 mg PO BID BLOOD THINNER 30 days #60 tabs10/20/22 [Rx Last Taken Unknown] sennosides 8.6 mg-docusate sodium 50 mg tablet (Stool Softener-Stimulant Laxative) 2 tab PO BID PRN PRN Constipation #0 tabs 10/20/22 [Rx Last Taken Unknown] Allergy/AdvReac Type Severity Reaction Status Date / Time Penicillins Allergy Hives Verified 04/17/23 21:26 Family History Mother CVA (cerebral vascular accident) CAD (coronary artery disease) Hypertension Heart disease Myocardial infarction Father CAD (coronary artery disease) Heart disease Hypertension Myocardial infarction Surgical History H/O umbilical hernia repair History of bilateral tubal ligation History of eye surgery Hx of cataract surgery S/P lens implant Status post glaucoma surgery Status post tonsillectomy and adenoidectomy Social History household members: none housing: apartment Smoking Status: Current every day smoker tobacco type: cigarettes how long ago did patient quit smoking: Patient reports 1/2 ppd cigarette tobacco use since teen. alcohol intake: never substance use type: does not use Physical Exam Const no apparent distress; Negative for alert or oriented x3 General Appearance: comfortable Orientation / Consciousness: awake Extremity Extremity Narrative: Left hip flexed and externally rotated, logroll patient mumbles and is very difficult to understand compartment soft palpable pedal pulse, neurological examlimited secondary to pain and hemiparesis left side, no open wounds or ecchymosis left hip Lab / Micro Data 04/18/23 03:47 04/18/23 03:47 Labs: Laboratory Results - last 24 hr 04/17/23 21:40: Urine Color Yellow, Urine Clarity Clear, Urine pH 8.0, Ur Specific [place] 1.010, Urine Protein 15 H, Urine Glucose (UA) Normal, Urine Ketones Negative, Urine Occult Blood Negative, Urine Nitrite Negative, Urine Bilirubin Negative, Urine Urobilinogen Normal, Ur Leukocyte Esterase Negative, Urine RBC 0 SEEN, Urine WBC 0 SEEN, Ur Squamous Epith Cells 0 SEEN, Urine Bacteria 0 SEEN, Urine Mucus 0 SEEN 04/17/23 22:40: WBC 23.4 H, RBC 4.96, Hgb 13.9, Hct 41.9, MCV 84.5, MCH 28.0, MCHC 33.2, RDW Std Deviation 37.9, RDW Coeff of Jovani 12.4, Plt Count 261, MPV 12.4 H, Immature Gran % (Auto) 0.800, Neut % (Auto) 93.2 H, Lymph % (Auto) 2.0 L, [place] % (Auto) 3.8, Eos % (Auto) 0.0, Baso % (Auto) 0.2, Absolute Neuts (auto) 21.8 H, Absolute Lymphs (auto) 0.47 L, Nucleated RBC % 0, Differential Comment SCANNED, Sodium 139, Potassium 3.2 L, Chloride 106, Carbon Dioxide 25.0, Anion Gap 8, BUN 14, Creatinine 1.15 H, Estim Creat Clear Calc 42.20, Est GFR (MDRD) Af Amer 63, Est GFR (MDRD) Non-Af 52 L, BUN/Creatinine Ratio 12.2, Glucose 138 H, Calcium 9.4 04/18/23 03:47: WBC 21.5 H, RBC 4.93, Hgb 14.1, Hct 42.7, MCV 86.6, MCH 28.6, MCHC 33.0, RDW Std Deviation 40.0, RDW Coeff of Jovani 12.7, Plt Count 247, MPV 11.9, Immature Gran % (Auto) 0.500, Neut % (Auto) 90.1 H, Lymph % (Auto) 4.5 L, [place] % (Auto) 4.6, Eos % (Auto) 0.1, Baso % (Auto) 0.2, Absolute Neuts (auto) 19.4 H, Absolute Lymphs (auto) 0.97, Nucleated RBC % 0, Sodium 136, Potassium 3.2 L, Chloride 107, Carbon Dioxide 24.0, Anion Gap 5, BUN 14, Creatinine 1.23 H, Estim Creat Clear Calc 45.15, Est GFR (MDRD) Af Amer 58 L, Est GFR (MDRD) Non-Af 48 L, BUN/Creatinine Ratio 11.4, Glucose 133 H, Calcium 9.3, Total Bilirubin 0.50, AST 11 L, ALT 25, Alkaline Phosphatase 50, Total Protein 8.0, Albumin 3.7,Globulin 4.3 H, Albumin/Globulin Ratio 0.9 Rhythm Strip Rhythm Strip: Sinus Rhythm Rate: 65 Ectopy: None Radiology Impression Femur X-Ray 04/17/23 22:09 IMPRESSION: Fracture involving the left femoral neck/intertrochanteric region with near 90 degrees angulation as described. No dislocation. Electronically Signed: Madeline Squires MD at 0:29 EDT , Ankle X-Ray 04/17/23 23:35 IMPRESSION: Diffuse osteopenia, otherwise no acute fracture or subluxation. Electronically Signed: Madeline Squires MD at 0:28 EDT , Chest X-Ray 04/18/23 00:20 IMPRESSION: No acute cardiopulmonary disease. Electronically Signed: Madeline Squires MD at 0:44 EDT , 04/18/23 1108 <Electronically signed by Hakeem Velez DO> Cosigner Signature (if applicable): CC: Dr. Hakeem Bolton MD; Dr. Hakeem Velez DO; No Primary Care Physician~ Signed [facility] Work Phone: 1(580) 599-678510-29-2023 History and physical note Author Hakeem Bolton [facility] April 18, 2023 2:44am Note Date/Time April 18, 2023 1 :19am [facility] Medical Records Department [address] [place] [address] H&P Exam - Hospitalist 04/18/23 0119 MR#: [id number] Acct: [id number] Name: ZEKE RAY Rep #:[id number] : 1970 52 From: Hakeem Bolton MD PCP: Care Physician,No Primary Status :ADM IN Location: [facility] [id number] HPI - General General Date of Admission: 04/18/23 Date of Service: 04/18/23 Chief Complaint: Fall HPI Brant RAY, is a 52 F with a significant history of left-sided hemiparesis secondary to stroke who presents to the emergency department with a fall that occurred on the same day of presentation.. At patient's home, patient was going to the bathroom when she fell. With the fall she developed excruciating pain in her left hip. Imaging at the emergency department showed that her left hip has fractured. Also at the emergency department patient was found to have excessively elevated blood pressure. Patient reports not following up with her doctor and not takingher medications for a while. Reportedly she is unable to take her medication because she has no help. Patient gets help only when her boyfriend comes around. Previously she was at [facility] but reportedly she does not want to go back there. [facility] Medical History Alcohol abuse CVA (cerebral vascular accident) CVA (cerebral vascular accident) Depression Hepatitis B Hidradenitis suppurativa Hypertension Hypertensive emergency Hypertensive urgency Irregular heart beat Ischemic cerebrovascular accident (CVA) Left axillary hidradenitis Smoker Tobacco use Vision loss of left eye Vision loss of right eye Home Medications aspirin 81 mg chewable tablet 81 mg PO DAILY heart health 07/02/22 [History Last Taken Unknown] multivitamin 1 cap PO DAILY supplement 09/24/22 [History Last Taken Unknown] polyethylene glycol 3350 17 gram oral powder packet 17 g PO DAILY Check with primary doctor 10/18/22 [History Last Taken Unknown] atorvastatin 40 mg tablet 80 mg (2 x 40 mg) PO QHS CHOLESTEROL #0 tabs 10/20/22 [Rx Last Taken Unknown] lisinopril 20 mg tablet 40 mg (2 x 20 mg) PO DAILY blood pressure 30 days #0 tabs 10/20/22 [Rx Last Taken 10/14/22] nicotine 21 mg/24 hr daily transdermal patch 21 mg transdermal DAILY Check with primary doctor 30 days #30 ea 10/20/22 [Rx Last Taken Unknown] rivaroxaban 2.5 mg tablet (Xarelto) 2.5 mg PO BID BLOOD THINNER 30 days #60 tabs10/20/22 [Rx Last Taken Unknown] sennosides 8.6 mg-docusate sodium 50 mg tablet (Stool Softener-Stimulant Laxative) 2 tab PO BID PRN PRN Constipation #0 tabs 10/20/22 [Rx Last Taken Unknown] Allergy/AdvReac Type Severity Reaction Status Date / Time Penicillins Allergy Hives Verified 04/17/23 21:26 Family History Mother CVA (cerebral vascular accident) CAD (coronary artery disease) Hypertension Heart disease Myocardial infarction Father CAD (coronary artery disease) Heart disease Hypertension Myocardial infarction Surgical History H/O umbilical hernia repair History of bilateral tubal ligation History of eye surgery Hx of cataract surgery S/P lens implant Status post glaucoma surgery Status post tonsillectomy and adenoidectomy Social History household members: none housing: apartment Smoking Status: Current every day smoker tobacco type: cigarettes how long ago did patient quit smoking: Patient reports 1/2 ppd cigarette tobacco use since teen. alcohol intake: never substance use type: does not use ROS ROS Narrative Pertinent positives and pertinent negatives as noted in HPI. All other systems were reviewed and are negative Vital Signs Vital Signs Vital Signs: 04/17/23 21:22 04/17/23 22:21 Temperature 97.6 F L Temperature Source Oral Pulse Rate 71 Respiratory Rate 20 H Respiratory Effort Normal Respiratory Depth Normal Respiratory Pattern Normal Blood Pressure 234/100 H Blood Pressure Mean 144 Pulse Ox 94 Oxygen Delivery Method Room Air Room Air Weight Weight: 62 kg Body Mass Index (BMI) 25.8 Physical Exam Narrative Physical exam: General: Well-nourished, well-developed. Head: Normocephalic, atraumatic, no tenderness Eyes: Vision is grossly intact. EOMI ENT, no trauma, poor dentition, no rhinorrhea Neck: Nontender, No thyromegaly. CVS: Regular rate and rhythm. S1-S2 present. No murmur, gallop or rub. Respiratory : clear to auscultation bilaterally, chest wall nontender Abdomen: Soft, nontender, nondistended, normal bowel sounds, no masses : Deferred Back: Nontender, no CVA tenderness. Extremities: Strength in left upper extremity 3 out of 5. Strength in right upper extremity 5 out of 5. Strength in right lower extremity 5 out of 5. Strength in left lower extremity was not tested secondary to fracture. Skin: Normal color, no trauma, abrasions Neuro: Alert, oriented, cranial nerves II through XII grossly intact. Psychiatry: Normal mood. Normal affect. Not depressed. Not anxious. Results Lab / Micro Data 04/17/23 22:40 04/17/23 22:40 Labs: Laboratory Results - last 24 hr 04/17/23 21:40: Urine Color Yellow, Urine Clarity Clear, Urine pH 8.0, Ur Specific [place] 1.010, Urine Protein 15 H, Urine Glucose (UA) Normal, Urine Ketones Negative, Urine Occult Blood Negative, Urine Nitrite Negative, Urine Bilirubin Negative, Urine Urobilinogen Normal, Ur Leukocyte Esterase Negative, Urine RBC 0 SEEN, Urine WBC 0 SEEN, Ur Squamous Epith Cells 0 SEEN, Urine Bacteria 0 SEEN, Urine Mucus 0 SEEN 04/17/23 22:40: WBC 23.4 H, RBC 4.96, Hgb 13.9, Hct 41.9, MCV 84.5, MCH 28.0, MCHC 33.2, RDW Std Deviation 37.9, RDW Coeff of Jovani 12.4, Plt Count 261, MPV 12.4 H, Immature Gran % (Auto) 0.800, Neut % (Auto) 93.2 H, Lymph % (Auto) 2.0 L, [place] % (Auto) 3.8, Eos % (Auto) 0.0, Baso % (Auto) 0.2, Absolute Neuts (auto) 21.8 H, Absolute Lymphs (auto) 0.47 L, Nucleated RBC % 0, Differential Comment SCANNED, Sodium 139, Potassium 3.2 L, Chloride 106, Carbon Dioxide 25.0, Anion Gap 8, BUN 14, Creatinine 1.15 H, Estim Creat Clear Calc 42.20, Est GFR (MDRD) Af Amer 63, Est GFR (MDRD) Non-Af 52 L, BUN/Creatinine Ratio 12.2, Glucose 138 H, Calcium 9.4 Rhythm Strip Rhythm Strip: Sinus Rhythm Rate: 65 Ectopy: None Radiology Impression Femur X-Ray 04/17/23 22:09 IMPRESSION: Fracture involving the left femoral neck/intertrochanteric region with near 90 degrees angulation as described. No dislocation. Electronically Signed: Madeline Squires MD at 0:29 EDT , Ankle X-Ray 04/17/23 23:35 IMPRESSION: Diffuse osteopenia, otherwise no acute fracture or subluxation. Electronically Signed: Madeline Squires MD at 0:28 EDT , Chest X-Ray 04/18/23 00:20 IMPRESSION: No acute cardiopulmonary disease. Electronically Signed: Madeline Squires MD at 0:44 EDT , Assessment & Plan Assessment/Plan (1) Closed intertrochanteric fracture of left hip: QUALIFIERS: Encounter type: initial encounter Fracture alignment:displaced Qualified Code(s): S72.142A - Displaced intertrochanteric fracture ofleft femur, initial encounter for closed fracture PLAN: Plan L femoral neck intertrochanteric fracture with angulation Radiology impression of femur x-ray: Fracture involving the left femoral neck/intertrochanteric region with near 90 degrees angulation as described. Femur x-ray was independently interpreted. Agrees with radiology interpretation. Chest x-ray with no fractures. Complaint of pain in left ankle. However left ankle with no fractures on x-ray but with osteopenia. Emergent department doctor discussed the case with Dr. Velez who stated that because of patient elevated blood pressure the earliest day that patient can have surgery would be 04/19/2023. Inpatient consult for orthopedic surgery. Morphine IV and oxycodone as needed ordered. Tylenol as needed ordered. Bowel protocol and antiemetics IV ordered. Keep n.p.o. Check vitamin D level. Preoperative EKG unremarkable Hypertensive urgency On arrival to emergency department blood pressure was 234/100. Blood pressure remained significantly elevated up while in the emergency department. Patient'shome lisinopril was resumed from the ED. As needed hydralazine ordered. In 24 hours of both against blood pressure with systolic reduction up to 185 mmHg. Appear hydralazine ordered. Code: Patient is a DNR CCA is no intubation. Explained to patient that with surgery DNR_CCA will be revoked aT surgery time; and she will be resuscitated if indicated. DVT Prophylaxis: SCD and subcutaneous Lovenox ordered. Time spent in the patient's overall evaluation,decision-making process, review of diagnostic data, adjustment of management, discussion with other providers, nursing and ancillary staff involved in patient's care documentation, 70 minutes. Charges/Coding Visit Charges Inpatient E&M: 07230 Init Hosp L3 04/18/23 0244 <Electronically signed by Hakeem Bolton MD> Cosigner Signature (if applicable): CC: Dr. Hakeem Bolton MD; No Primary Care Physician~ Signed [facility] Work Phone: [phone]) 714-253710-29-2023 Discharge summary Author José Miguel Casanova [facility] April 18, 2023 1:36am Note Date/Time April 17, 2023 1 0:21pm [facility] Medical Records Department [address] [place] [address] Emergency Department Summary 04/17/23 MR#: [id number] Acct: [id number] Name: ZEKE RAY Rep #:[id number] : 1970 52 From: José Miguel Casanova MD PCP: Care Physician,No Primary Status :REG ER Location: ED HPI HPI - Fall History of Present Illness Chief Complaint: Fall Informant: patient and EMS Narrative Narrative: Patient tripped and just prior to arrival injuring her left thigh mostly, she has had some pain in her left ankle. Unable to move her left leg due to the pain or put any weight on it. Prior to this she has hemiparesis due to a stroke, walks with a cane which is what she was doing inside she tripped over something. Patient states she has not think she hit her head, back, arms or anything else. She has no pain elsewhere. She does not have any prodromal symptoms or recent illness. Incidentally states when discussing her high blood pressure that she has had none of her medications for a long time and she Remember for how long. She states she does not have help at home. She states she has a boyfriend liveswith her, sometimes he helps other times he is busy. He does not help her get to the doctor or get medications apparently. He is not here to discuss with. [facility] does not want placement back there. [facility] Medical History Alcohol abuse CVA (cerebral vascular accident) CVA (cerebral vascular accident) Depression Hepatitis B Hidradenitis suppurativa Hypertension Hypertensive emergency Hypertensive urgency Irregular heart beat Ischemic cerebrovascular accident (CVA) Left axillary hidradenitis Smoker Tobacco use Vision loss of left eye Vision loss of right eye Home Medications aspirin 81 mg chewable tablet 81 mg PO DAILY heart health 07/02/22 [History Last Taken Unknown] multivitamin 1 cap PO DAILY supplement 09/24/22 [History Last Taken Unknown] polyethylene glycol 3350 17 gram oral powder packet 17 g PO DAILY Check with primary doctor 10/18/22 [History Last Taken Unknown] atorvastatin 40 mg tablet 80 mg (2 x 40 mg) PO QHS #0 tabs 10/20/22 [Rx Last Taken Unknown] lisinopril 20 mg tablet 40 mg (2 x 20 mg) PO DAILY blood pressure 30 days #0 tabs 10/20/22 [Rx Last Taken 10/14/22] nicotine 21 mg/24 hr daily transdermal patch 21 mg transdermal DAILY Check with primary doctor 30 days #30 ea 10/20/22 [Rx Last Taken Unknown] rivaroxaban 2.5 mg tablet (Xarelto) 2.5 mg PO BID 30 days #60 tabs 10/20/22 [Rx Last Taken Unknown] sennosides 8.6 mg-docusate sodium 50 mg tablet (Stool Softener-Stimulant Laxative) 2 tab PO BID PRN PRN Constipation #0 tabs 10/20/22 [Rx Last Taken Unknown] Allergy/AdvReac Type Severity Reaction Status Date / Time Penicillins Allergy Hives Verified 04/17/23 21:26 Family History Mother CVA (cerebral vascular accident) CAD (coronary artery disease) Hypertension Heart disease Myocardial infarction Father CAD (coronary artery disease) Heart disease Hypertension Myocardial infarction Surgical History H/O umbilical hernia repair History of bilateral tubal ligation History of eye surgery Hx of cataract surgery S/P lens implant Status post glaucoma surgery Status post tonsillectomy and adenoidectomy Social History household members: none housing: apartment Smoking Status: Current every day smoker tobacco type: cigarettes how long ago did patient quit smoking: Patient reports 1/2 ppd cigarette tobacco use since teen. alcohol intake: never substance use type: does not use ROS ROS ED Constitutional Constitutional ED: Denies chills or fever(s) Eyes Eyes: Denies change in vision or diplopia ENT ENT ED: Denies ear pain, epistaxis, facial pain or rhinorrhea Cardiovascular Cardiovascular: Denies chest pain or palpitations Respiratory/Chest Respiratory/Chest: Denies cough or dyspnea Gastrointestinal Gastrointestinal: Denies abdominal pain, diarrhea, melena, nausea or vomiting Genitourinary Genitourinary ED: Denies dysuria or hematuria Musculoskeletal Musculoskeletal: Reports extremity pain; Denies back pain or neck pain Integumentary Denies abscess, Abrasions, laceration or rash Neurologic Neurologic: Reports paresthesias LUE and LLE and weakness; Denies confusion or headache(s) EXAM Physical Exam Const Vital Signs: 04/17/23 21:22 04/17/23 22:21 Temperature 97.6 F L Temperature Source Oral Pulse Rate 71 Respiratory Rate 20 H Respiratory Effort Normal Respiratory Depth Normal Respiratory Pattern Normal Blood Pressure 234/100 H Blood Pressure Mean 144 Pulse Ox 94 Oxygen Delivery Method Room Air Room Air Positive well nourished and well developed General Appearance ED: well developed and NAD HEENT Reports nasal mucous membranes and turbinates normal HEENT Narrative: No jerry sign no facial trauma no raccoon eyes. No CSF otorhinorrhea. atraumatic Face and Sinus: Negative for facial tenderness Eyes PERRL and EOMs intact bilaterally Visual Acuity: other Other Details: no entrapment or pain with extraocular movements Neck full ROM and supple General: Negative for tenderness Chest Wall inspection of chest normal and palpation of chest normal Chest: symmetrical chest wall rise; Negative for crepitus or tenderness Resp normal respiratory effort and clear to auscultation bilaterally Percussion: other equal BS bilat Cardio no murmurs Rate: regular rate Rhythm: regular rhythm GI normal to inspection, nondistended, normoactive bowel sounds, soft to palpation and non-tender Back/Spine normal ROM Cervical Spine: Negative for cervical spine tenderness Thoracic Spine / Upper Back: Negative for thoracic spinal tenderness Lumbar Spine / Lower Back: Negative for lumbar spinal tenderness Extremity normal to inspection Extremity Narrative: Tender throughout the distal half of the left thigh. All compartments are soft and nondistended, there is no deformities or any obvious signs of trauma/injury,she is holding her knee and thigh both in flexion with her foot on the bed, there is no tenderness in the ankle, limited range of motion throughout all joints of the left lower extremity due to pain in the thigh. She has full rangeof motion throughout all of the other 3 extremities without any apparent difficulty or pain. General Extremety ED: Yes tenderness Neuro oriented x3, CN's II-XII intact bilaterally and moves all extremities Neuro Narrative: Weak left side and mild left facial droop [place] Coma Scale: document GCS findings Spontaneous Obeys Commands Oriented 15 Sensorium / Orientation: awake and alert Psych mental status grossly normal and thought process normal Skin no wounds Lesions: no lesions Rashes: no rashes MDM MDM MDM Narrative Medical decision making narrative: Patient does not want to move the knee or the left hip, because of pain and she really is tender mostly at the distal half of the femur although it is normal-appearing clinically. Therefore obtain 1 view of the pelvis and 4 views of the left femur, combination of these basically show an angulated displaced intertrochanteric hip fracture. The rest of the femur is uninjured. Three-view left ankle series negative for anything acute there. Blood pressure really elevated I gave her a dose of the lisinopril she has not had an months, patient does not know how long it has been since she had any of her medications. Her white blood count is 23.4. I obtained a chest x-ray 1 view on my interpretationshows no pneumonia or anything else acute, and the urinalysis is negative. She does not have any symptoms of illness recently, she states she was feeling at baseline before this fall, she does not have symptoms of COVID and that does nottypically cause a leukocytosis so I do not think we need to test her for that. Discussed with orthopedics Dr. Velez, agrees that we will likely need a day ofmedical clearance before surgery can occur. Lab Data Attestation: I reviewed the patient's lab results. Labs: Laboratory Results - last 24 hr 04/17/23 04/17/23 21:40 22:40 WBC 23.4 H RBC 4.96 Hgb 13.9 Hct 41.9 MCV 84.5 MCH 28.0 MCHC 33.2 RDW Std Deviation 37.9 RDW Coeff of Jovani 12.4 Plt Count 261 MPV 12.4 H Immature Gran % (Auto) 0.800 Neut % (Auto) 93.2 H Lymph % (Auto) 2.0 L [place] % (Auto) 3.8 Eos % (Auto) 0.0 Baso % (Auto) 0.2 Absolute Neuts (auto) 21.8 H Absolute Lymphs (auto) 0.47 L Nucleated RBC % 0 Differential Comment SCANNED Sodium 139 Potassium 3.2 L Chloride 106 Carbon Dioxide 25.0 Anion Gap 8 BUN 14 Creatinine 1.15 H Estim Creat Clear Calc 42.20 Est GFR (MDRD) Af Amer 63 Est GFR (MDRD) Non-Af 52 L BUN/Creatinine Ratio 12.2 Glucose 138 H Calcium 9.4 Urine Color Yellow Urine Clarity Clear Urine pH 8.0 Ur Specific [place] 1.010 Urine Protein 15 H Urine Glucose (UA) Normal Urine Ketones Negative Urine Occult Blood Negative Urine Nitrite Negative Urine Bilirubin Negative Urine Urobilinogen Normal Ur Leukocyte Esterase Negative Urine RBC 0 SEEN Urine WBC 0 SEEN Ur Squamous Epith Cells 0 SEEN Urine Bacteria 0 SEEN Urine Mucus 0 SEEN Radiography Diagnostic Testing: Clinical Impression(s) from Imaging Studies Femur X-Ray 04/17/23 22:09 IMPRESSION: Fracture involving the left femoral neck/intertrochanteric region with near 90 degrees angulation as described. No dislocation. Electronically Signed: Madeline Squires MD at 0:29 EDT , Ankle X-Ray 04/17/23 23:35 IMPRESSION: Diffuse osteopenia, otherwise no acute fracture or subluxation. Electronically Signed: Madeline Squires MD at 0:28 EDT , Chest X-Ray 04/18/23 00:20 IMPRESSION: No acute cardiopulmonary disease. Electronically Signed: Madeline Squires MD at 0:44 EDT , Rhythm Strip Rhythm Strip: Sinus Rhythm Rate: 65 Ectopy: None EKG Initial EKG: Attestation: I personally reviewed and interpreted this EKG as follows: Interpretation: Sinus Rhythm and No Acute Injury Pattern Comments: nml EKG Management Discussion w/another healthcare provider: Hospitalist and Electronics Hardware Design Engineer (brielle Velez) Discharge Plan Dx/Rx/DC Orders Clinical Impression: Hemiparesis affecting left side as late effect of stroke, Accelerated hypertension, Fall on same level from tripping as cause of accidental injury, Noncompliance with medications, Closed intertrochanteric fracture of left hip Disposition Disposition: Acute Care [facility] What to do if you have Problems For any increased pain, shortness of breath, bleeding, nausea or vomiting, chestpain, or any unexpected problems, contact your Primary Care Provider. Call [facility] ([phone]) or report to the closest Emergency Room. Call 911 if necessary. 04/18/23 0136 <Electronically signed by José Miguel Casanova MD> Cosigner Signature (if applicable): CC: No Primary Care Physician ~ Signed [facility] Work Phone: [phone]) 576-253210-29-2023 Discharge summary Author José Miguel Casanova [facility] April 18, 2023 1:36am Note Date/Time April 17, 2023 1 0:21pm [facility] Medical Records Department [address] [place] [id number] Emergency Department Summary 04/17/23 MR#: [id number] Acct: [id number] Name: ZEKE RAY Rep #:[id number] : 1970 52 From: José Miguel Casanova MD PCP: Care Physician,No Primary Status :REG ER Location: ED HPI HPI - Fall History of Present Illness Chief Complaint: Fall Informant: patient and EMS Narrative Narrative: Patient tripped and just prior to arrival injuring her left thigh mostly, she has had some pain in her left ankle. Unable to move her left leg due to the pain or put any weight on it. Prior to this she has hemiparesis due to a stroke, walks with a cane which is what she was doing inside she tripped over something. Patient states she has not think she hit her head, back, arms or anything else. She has no pain elsewhere. She does not have any prodromal symptoms or recent illness. Incidentally states when discussing her high blood pressure that she has had none of her medications for a long time and she Remember for how long. She states she does not have help at home. She states she has a boyfriend liveswith her, sometimes he helps other times he is busy. He does not help her get to the doctor or get medications apparently. He is not here to discuss with. Patient states she is to be in [facility] does not want placement back there. [facility] Medical History Alcohol abuse CVA (cerebral vascular accident) CVA (cerebral vascular accident) Depression Hepatitis B Hidradenitis suppurativa Hypertension Hypertensive emergency Hypertensive urgency Irregular heart beat Ischemic cerebrovascular accident (CVA) Left axillary hidradenitis Smoker Tobacco use Vision loss of left eye Vision loss of right eye Home Medications aspirin 81 mg chewable tablet 81 mg PO DAILY heart health 07/02/22 [History Last Taken Unknown] multivitamin 1 cap PO DAILY supplement 09/24/22 [History Last Taken Unknown] polyethylene glycol 3350 17 gram oral powder packet 17 g PO DAILY Check with primary doctor 10/18/22 [History Last Taken Unknown] atorvastatin 40 mg tablet 80 mg (2 x 40 mg) PO QHS #0 tabs 10/20/22 [Rx Last Taken Unknown] lisinopril 20 mg tablet 40 mg (2 x 20 mg) PO DAILY blood pressure 30 days #0 tabs 10/20/22 [Rx Last Taken 10/14/22] nicotine 21 mg/24 hr daily transdermal patch 21 mg transdermal DAILY Check with primary doctor 30 days #30 ea 10/20/22 [Rx Last Taken Unknown] rivaroxaban 2.5 mg tablet (Xarelto) 2.5 mg PO BID 30 days #60 tabs 10/20/22 [Rx Last Taken Unknown] sennosides 8.6 mg-docusate sodium 50 mg tablet (Stool Softener-Stimulant Laxative) 2 tab PO BID PRN PRN Constipation #0 tabs 10/20/22 [Rx Last Taken Unknown] Allergy/AdvReac Type Severity Reaction Status Date / Time Penicillins Allergy Hives Verified 04/17/23 21:26 Family History Mother CVA (cerebral vascular accident) CAD (coronary artery disease) Hypertension Heart disease Myocardial infarction Father CAD (coronary artery disease) Heart disease Hypertension Myocardial infarction Surgical History H/O umbilical hernia repair History of bilateral tubal ligation History of eye surgery Hx of cataract surgery S/P lens implant Status post glaucoma surgery Status post tonsillectomy and adenoidectomy Social History household members: none housing: apartment Smoking Status: Current every day smoker tobacco type: cigarettes how long ago did patient quit smoking: Patient reports 1/2 ppd cigarette tobacco use since teen. alcohol intake: never substance use type: does not use ROS ROS ED Constitutional Constitutional ED: Denies chills or fever(s) Eyes Eyes: Denies change in vision or diplopia ENT ENT ED: Denies ear pain, epistaxis, facial pain or rhinorrhea Cardiovascular Cardiovascular: Denies chest pain or palpitations Respiratory/Chest Respiratory/Chest: Denies cough or dyspnea Gastrointestinal Gastrointestinal: Denies abdominal pain, diarrhea, melena, nausea or vomiting Genitourinary Genitourinary ED: Denies dysuria or hematuria Musculoskeletal Musculoskeletal: Reports extremity pain; Denies back pain or neck pain Integumentary Denies abscess, Abrasions, laceration or rash Neurologic Neurologic: Reports paresthesias LUE and LLE and weakness; Denies confusion or headache(s) EXAM Physical Exam Const Vital Signs: 04/17/23 21:22 04/17/23 22:21 Temperature 97.6 F L Temperature Source Oral Pulse Rate 71 Respiratory Rate 20 H Respiratory Effort Normal Respiratory Depth Normal Respiratory Pattern Normal Blood Pressure 234/100 H Blood Pressure Mean 144 Pulse Ox 94 Oxygen Delivery Method Room Air Room Air Positive well nourished and well developed General Appearance ED: well developed and NAD HEENT Reports nasal mucous membranes and turbinates normal HEENT Narrative: No jerry sign no facial trauma no raccoon eyes. No CSF otorhinorrhea. atraumatic Face and Sinus: Negative for facial tenderness Eyes PERRL and EOMs intact bilaterally Visual Acuity: other Other Details: no entrapment or pain with extraocular movements Neck full ROM and supple General: Negative for tenderness Chest Wall inspection of chest normal and palpation of chest normal Chest: symmetrical chest wall rise; Negative for crepitus or tenderness Resp normal respiratory effort and clear to auscultation bilaterally Percussion: other equal BS bilat Cardio no murmurs Rate: regular rate Rhythm: regular rhythm GI normal to inspection, nondistended, normoactive bowel sounds, soft to palpation and non-tender Back/Spine normal ROM Cervical Spine: Negative for cervical spine tenderness Thoracic Spine / Upper Back: Negative for thoracic spinal tenderness Lumbar Spine / Lower Back: Negative for lumbar spinal tenderness Extremity normal to inspection Extremity Narrative: Tender throughout the distal half of the left thigh. All compartments are soft and nondistended, there is no deformities or any obvious signs of trauma/injury,she is holding her knee and thigh both in flexion with her foot on the bed, there is no tenderness in the ankle, limited range of motion throughout all joints of the left lower extremity due to pain in the thigh. She has full rangeof motion throughout all of the other 3 extremities without any apparent difficulty or pain. General Extremety ED: Yes tenderness Neuro oriented x3, CN's II-XII intact bilaterally and moves all extremities Neuro Narrative: Weak left side and mild left facial droop [place] Coma Scale: document GCS findings Spontaneous Obeys Commands Oriented 15 Sensorium / Orientation: awake and alert Psych mental status grossly normal and thought process normal Skin no wounds Lesions: no lesions Rashes: no rashes MDM MDM MDM Narrative Medical decision making narrative: Patient does not want to move the knee or the left hip, because of pain and she really is tender mostly at the distal half of the femur although it is normal-appearing clinically. Therefore obtain 1 view of the pelvis and 4 views of the left femur, combination of these basically show an angulated displaced intertrochanteric hip fracture. The rest of the femur is uninjured. Three-view left ankle series negative for anything acute there. Blood pressure really elevated I gave her a dose of the lisinopril she has not had an months, patient does not know how long it has been since she had any of her medications. Her white blood count is 23.4. I obtained a chest x-ray 1 view on my interpretationshows no pneumonia or anything else acute, and the urinalysis is negative. She does not have any symptoms of illness recently, she states she was feeling at baseline before this fall, she does not have symptoms of COVID and that does nottypically cause a leukocytosis so I do not think we need to test her for that. Discussed with orthopedics Dr. Velez, agrees that we will likely need a day ofmedical clearance before surgery can occur. Lab Data Attestation: I reviewed the patient's lab results. Labs: Laboratory Results - last 24 hr 04/17/23 04/17/23 21:40 22:40 WBC 23.4 H RBC 4.96 Hgb 13.9 Hct 41.9 MCV 84.5 MCH 28.0 MCHC 33.2 RDW Std Deviation 37.9 RDW Coeff of Jovani 12.4 Plt Count 261 MPV 12.4 H Immature Gran % (Auto) 0.800 Neut % (Auto) 93.2 H Lymph % (Auto) 2.0 L [place] % (Auto) 3.8 Eos % (Auto) 0.0 Baso % (Auto) 0.2 Absolute Neuts (auto) 21.8 H Absolute Lymphs (auto) 0.47 L Nucleated RBC % 0 Differential Comment SCANNED Sodium 139 Potassium 3.2 L Chloride 106 Carbon Dioxide 25.0 Anion Gap 8 BUN 14 Creatinine 1.15 H Estim Creat Clear Calc 42.20 Est GFR (MDRD) Af Amer 63 Est GFR (MDRD) Non-Af 52 L BUN/Creatinine Ratio 12.2 Glucose 138 H Calcium 9.4 Urine Color Yellow Urine Clarity Clear Urine pH 8.0 Ur Specific [place] 1.010 Urine Protein 15 H Urine Glucose (UA) Normal Urine Ketones Negative Urine Occult Blood Negative Urine Nitrite Negative Urine Bilirubin Negative Urine Urobilinogen Normal Ur Leukocyte Esterase Negative Urine RBC 0 SEEN Urine WBC 0 SEEN Ur Squamous Epith Cells 0 SEEN Urine Bacteria 0 SEEN Urine Mucus 0 SEEN Radiography Diagnostic Testing: Clinical Impression(s) from Imaging Studies Femur X-Ray 04/17/23 22:09 IMPRESSION: Fracture involving the left femoral neck/intertrochanteric region with near 90 degrees angulation as described. No dislocation. Electronically Signed: Madeline Squires MD at 0:29 EDT , Ankle X-Ray 04/17/23 23:35 IMPRESSION: Diffuse osteopenia, otherwise no acute fracture or subluxation. Electronically Signed: Madeline Squires MD at 0:28 EDT , Chest X-Ray 04/18/23 00:20 IMPRESSION: No acute cardiopulmonary disease. Electronically Signed: Madeline Squires MD at 0:44 EDT , Rhythm Strip Rhythm Strip: Sinus Rhythm Rate: 65 Ectopy: None EKG Initial EKG: Attestation: I personally reviewed and interpreted this EKG as follows: Interpretation: Sinus Rhythm and No Acute Injury Pattern Comments: nml EKG Management Discussion w/another healthcare provider: Hospitalist and Electronics Hardware Design Engineer (brielle Velez) Discharge Plan Dx/Rx/DC Orders Clinical Impression: Hemiparesis affecting left side as late effect of stroke, Accelerated hypertension, Fall on same level from tripping as cause of accidental injury, Noncompliance with medications, Closed intertrochanteric fracture of left hip Disposition Disposition: Acute Care Hospital [facility] What to do if you have Problems For any increased pain, shortness of breath, bleeding, nausea or vomiting, chestpain, or any unexpected problems, contact your Primary Care Provider. Call [facility] ([phone]) or report to the closest Emergency Room. Call 911 if necessary. 04/18/23 0136 <Electronically signed by José Miguel Casanova MD> Cosigner Signature (if applicable): CC: No Primary Care Physician ~ Signed [facility] Work Phone: [phone]) 861-403007-26-2023 Discharge summary Author Mihai Hubbard [facility] January 14, 2023 1:09am Note Date/Time January 14, 2023 12:1 0am [facility] Medical Records Department [address] [place] [address] Emergency Department Summary 01/13/23 MR#: [id number] Acct: [id number] Name: ZEKE RAY Rep #:[id number] : 1970 52 From: Mihai Hubbard MD PCP: Care Physician,No Primary Status :DEP ER Location: ED HPI History of Present Illness Chief Complaint: Lower Extremity Injury Informant: patient and spouse/S.O. Onset/Context/Timing Onset: Today and Hours Context: Sudden Onset Injury: direct trauma Timing: Continuous Quality: Throbbing Location: Left Leg Current Severity: Moderate Maximum Severity: Moderate Worsened by: improves with Nothing Relieved by: Nothing Narrative Narrative: 52-year-old female prior stroke with decreased sensation in her left arm and legwhich is chronic. She uses a motorized wheelchair at home. Tonight she was riding her motorized wheelchair and hit her left ankle and foot against a door frame. Can appended there. This occurred about 2 and half hours ago. Did not fall to the wheelchair. No other injuries. Complaining of discomfort to the left ankle and foot. No prior history of or surgery to that area. Prior similar symptoms: No Recent Illness/Hospitalization: No PFSH PFSH Medical History Alcohol abuse CVA (cerebral vascular accident) CVA (cerebral vascular accident) Depression Hepatitis B Hidradenitis suppurativa Hypertension Hypertensive emergency Hypertensive urgency Irregular heart beat Ischemic cerebrovascular accident (CVA) Left axillary hidradenitis Smoker Tobacco use Vision loss of left eye Vision loss of right eye Home Medications aspirin 81 mg chewable tablet 81 mg PO DAILY heart health 07/02/22 [History Last Taken Unknown] multivitamin 1 cap PO DAILY supplement 09/24/22 [History Last Taken Unknown] polyethylene glycol 3350 17 gram oral powder packet 17 g PO DAILY Check with primary doctor 10/18/22 [History Last Taken Unknown] atorvastatin 40 mg tablet 80 mg (2 x 40 mg) PO QHS #0 tabs 10/20/22 [Rx Last Taken Unknown] lisinopril 20 mg tablet 40 mg (2 x 20 mg) PO DAILY blood pressure 30 days #0 tabs 10/20/22 [Rx Last Taken 10/14/22] nicotine 21 mg/24 hr daily transdermal patch 21 mg transdermal DAILY Check with primary doctor 30 days #30 ea 10/20/22 [Rx Last Taken Unknown] rivaroxaban 2.5 mg tablet (Xarelto) 2.5 mg PO BID 30 days #60 tabs 10/20/22 [Rx Last Taken Unknown] sennosides 8.6 mg-docusate sodium 50 mg tablet (Stool Softener-Stimulant Laxative) 2 tab PO BID PRN PRN Constipation #0 tabs 10/20/22 [Rx Last Taken Unknown] Allergy/AdvReac Type Severity Reaction Status Date / Time Penicillins Allergy Hives Verified 09/24/22 08:50 Family History Mother CVA (cerebral vascular accident) CAD (coronary artery disease) Hypertension Heart disease Myocardial infarction Father CAD (coronary artery disease) Heart disease Hypertension Myocardial infarction Surgical History H/O umbilical hernia repair History of bilateral tubal ligation History of eye surgery Hx of cataract surgery S/P lens implant Status post glaucoma surgery Status post tonsillectomy and adenoidectomy Social History household members: none housing: apartment Smoking Status: Current every day smoker tobacco type: cigarettes how long ago did patient quit smoking: Patient reports 1/2 ppd cigarette tobacco use since teen. alcohol intake: never substance use type: does not use ROS ROS ED ROS Narrative Denies recent illness. Review of Systems ROS Unobtainable: Denies due to encephalopathy Constitutional Constitutional ED: Denies chills or fever(s) Eyes Eyes: Denies blurry vision ENT ENT ED: Denies ear pain Cardiovascular Cardiovascular: Denies chest pain Respiratory/Chest Respiratory/Chest: Denies dyspnea Gastrointestinal Gastrointestinal: Denies abdominal pain Genitourinary Genitourinary ED: Denies dysuria Musculoskeletal Musculoskeletal: Denies arthralgias Integumentary Denies abscess Neurologic Neurologic: Denies headache(s) Psychiatric Psychiatric: Denies anxiety Endocrine Endocrinology: Denies cold intolerance Hematologic/Lymphatic Hematologic/Lymphatic: Denies easy bleeding Allergic/Immunologic Allergic/Immunologic ED: Denies mouth swelling EXAM Physical Exam Narrative Exam Narrative: 32-year-old female no acute distress. Vital signs are stable initial blood pressure elevated 234 110. H EENT exam unremarkable atraumatic. Neck nontender. Lungs clear. Heart regular rhythm rate about 90 no murmur. Chest wall nontender. Abdomen soft nontender. Pelvic girdle intact. Nontender upperextremities. Bilateral architectural engineer strength slightly decreased on the left compared tothe right. Left is 4 out of 5. She has had a prior stroke and has decreased sensation on left side. She has mild tenderness to the left lateral ankle and left lateral foot. No gross bony deformity. Mild swelling. DP pulse intact. She has a mild abrasion to her left knee but has normal flexion extension at theknee. Right lower extremity unremarkable. Neurologically she is awake and alert. She can move all 4 extremities. She is somewhat limited to the left side and has decreased sensation on the left side. This is all from her prior stroke. Const Vital Signs: 01/13/23 23:28 Temperature 97.9 F Temperature Source Temporal Pulse Rate 95 Respiratory Rate 18 Blood Pressure 234/110 H Blood Pressure Mean 151 Pulse Ox 98 Oxygen Delivery Method Room Air Positive well nourished and well developed; Negative for cachectic, contracturesor unkempt General Appearance ED: well developed and NAD; Negative for unkempt, cachectic, contractures or pallor Nutritional Appearance: Negative for cachectic HEENT Reports moist mucous membranes; Denies dry mucous membranes Negative for trauma or tenderness Mouth ED: No dry mucous membranes Mouth: No dry mucous membranes Eyes PERRL and EOMs intact bilaterally Neck no lymphadenopathy, supple and no JVD General: Negative for tenderness Thyroid: Negative for other Chest Wall Chest: Negative for other Resp normal respiratory effort and clear to auscultation bilaterally Effort and Inspection: Negative for pain with movement Auscultation: Negative for rales, rhonchi or wheezes Cardio regular rate, regular rhythm, S1 normal heart sound, S2 normal heart sound and no murmurs Palpation: Negative for palpable S3 Rate: Negative for bradycardia Rhythm: Negative for abnormal rhythm GI normal to inspection, nondistended, normoactive bowel sounds, soft to palpation,non-tender, non-distended and no masses Palpation: Negative for tender or guarding Bladder / Kidney Exam: No other Back/Spine normal to inspection and no thoracic nor lumbar tenderness General Back: Negative for CVA tenderness Cervical Spine: Negative for cervical spine tenderness Thoracic Spine / Upper Back: Negative for paraspinal muscle tenderness Lumbar Spine / Lower Back: Negative for ROM limited Extremity Negative for normal to inspection Extremity Narrative: Mild tenderness left lateral ankle and left lateral foot. Mild swelling. No gross bony deformity. Skin intact. Minor abrasion left knee. Decreased sensation left upper and lower extremity from prior stroke. General Extremety ED: Yes tenderness Neuro oriented x3 and No no sensory deficits noted Sensorium / Orientation: alert; Negative for confused, lethargic or stuporous Motor Exam: strength abnormal Psych mental status grossly normal Appearance: Negative for unkempt Attitude: No agitated Mood & Affect: Negative for depressed, sad or tearful Skin no rashes or lesions noted and no wounds General Skin Exam: Negative for jaundice or pallor Lesions: No lesion noted Rashes: No rashes noted Trauma: abrasion MDM MDM MDM Narrative Medical decision making narrative: 52-year-old prior stroke injured her left ankle and foot while riding her electric wheelchair hit and pinned it on the door frame. X-rays being obtained. [place] for pain. Repeat exam she is doing well. Patient be discharged home. Left ankle and footsprain and contusion. Patient requested a walking boot. History & Record Review Discussion w/independent historian: Patient and Family Radiography Diagnostic Testing: Clinical Impression(s) from Imaging Studies Ankle X-Ray 01/14/23 00:09 IMPRESSION: No acute osseous abnormality of the left ankle. Electronically Signed: Armen Frederick MD at 0:41 EDT , Foot X-Ray 01/14/23 00:09 IMPRESSION: No acute osseous abnormality of the left foot. Electronically Signed: Armen Frederick MD at 0:41 EDT , Left foot x-ray 3 views interpreted by myself and the radiologist shows no fracture or dislocation Left ankle x-ray 3 views interpreted by myself and the radiologist shows no acute fracture or dislocation. X-rays were discussed with the patient. Discharge Plan Triage Chief Complaint: Lower Extremity Injury ED Provider: Mihai Hubbard Dx/Rx/DC Orders Clinical Impression: History of embolic stroke, Contusion of foot, left, Left ankle sprain Instructions: ED Sprain Ankle W X Ray, ED Foot Contusion Prescriptions: No Action aspirin 81 mg tablet,chewable 81 mg PO DAILY Patient Comments: TAKE 1 TABLET BY MOUTH EVERY DAY multivitamin Capsule 1 cap PO DAILY polyethylene glycol 3350 17 gram powder in packet 17 g PO DAILY atorvastatin 40 mg Tablet 80 mg PO QHS Qty: 0 0RF sennosides-docusate sodium [Stool Softener-Stimulant Laxat] 8.6-50 mg Tablet 2 tab PO BID PRN PRN (Reason: Constipation) Qty: 0 0RF Xarelto 2.5 mg tablet 2.5 mg PO BID 30 Days Qty: 60 2RF lisinopril 20 mg tablet 40 mg PO DAILY 30 Days Qty: 0 0RF Patient Comments: TAKE 1 TABLET BY MOUTH EVERY DAY Rx Instructions: Suggested to keep systolic blood pressure 1 50-160 FOR 1 week and then decrease to 130 mg over the next 2 to 4 weeks nicotine 21 mg/24 hr patch 24 hour 21 mg transdermal DAILY 30 Days Qty: 30 0RF Primary Care Provider: Care Physician,No Primary Referrals: Care Physician,No Primary [Primary Care Provider] - Activity Restrictions/Additional Instructions: Ice to your foot and ankle. Motrin and Tylenol for pain. Follow-up if not improving. Disposition Disposition: Home, Self Care What to do if you have Problems For any increased pain, shortness of breath, bleeding, nausea or vomiting, chestpain, or any unexpected problems, contact your Primary Care Provider. Call [facility] ([phone]) or report to the closest Emergency Room. Call 911 if necessary. 01/14/23 0109 <Electronically signed by Mihai Hubbard MD> Cosigner Signature (if applicable): CC: No Primary Care Physician ~ Signed [facility] Work Phone: [phone] 235-973605-02-2023 Discharge summary Author Danielle Triston [facility] October 20, 2022 4:52pm Note Date/Time October 18, 2022 8:2 6pm [facility] Medical Records Department [address] [place] [address] [place] [address] Emergency Department Summary 10/18/22 MR#: [id number] Acct: [id number] Name: ZEKE RAY Rep #:[id number] : 1970 52 From: Courtney Gaxiola MD PCP: Dr. Desean Bonilla MD Status :ADM IN Location: [address] <Dr. Courtney Gaxiola MD - Last Filed: 10/18/22 22:26> History of Present Illness Chief Complaint: Stroke Alert Informant: patient and EMS Onset/Context/Timing Onset: Today Quality and Location: Positive for Left Facial Droop, Left Arm Weakness, Left Leg Weakness and Slurred Speech Narrative Narrative: Patient presents via EMS as a stroke alert. Patient reports that she was walking out of her home when she thought she caught her toe and fell. She has left-sided weakness. It is noted that the patient was seen earlier this month with left- sided weakness secondary to stroke. She states that her weakness improved but never completely came back to baseline. She is having a hard time telling me whether the weakness that she is experiencing now is worse than it has been. She states her boyfriend called EMS because he thought "it was happening again." He is not here to provide history. [facility] <Dr. Courtney Gaxiola MD - Last Filed: 10/18/22 22:26> [facility] Medical History Alcohol abuse CVA (cerebral vascular accident) Depression Hepatitis B Hidradenitis suppurativa Hypertension Hypertensive urgency Irregular heart beat Ischemic cerebrovascular accident (CVA) Left axillary hidradenitis Smoker Tobacco use Vision loss of left eye Vision loss of right eye Home Medications aspirin 81 mg chewable tablet 81 mg PO DAILY heart health 07/02/22 [History Last Taken Unknown] multivitamin 1 cap PO DAILY supplement 09/24/22 [History Last Taken Unknown] polyethylene glycol 3350 17 gram oral powder packet 17 g PO DAILY Check with primary doctor 10/18/22 [History Last Taken Unknown] atorvastatin 40 mg tablet 80 mg PO QHS #0 tabs 10/20/22 [Rx Last Taken Unknown] lisinopril 20 mg tablet 40 mg PO DAILY blood pressure 30 days #0 tabs 10/20/22 [Rx Last Taken 10/14/22] nicotine 21 mg/24 hr daily transdermal patch 21 mg transdermal DAILY Check with primary doctor 30 days #30 ea 10/20/22 [Rx Last Taken Unknown] rivaroxaban 2.5 mg tablet (Xarelto) 2.5 mg PO BID 30 days #60 tabs 10/20/22 [Rx Last Taken Unknown] sennosides 8.6 mg-docusate sodium 50 mg tablet (Stool Softener-Stimulant Laxative) 2 tab PO BID PRN PRN Constipation #0 tabs 10/20/22 [Rx Last Taken Unknown] Allergy/AdvReac Type Severity Reaction Status Date / Time Penicillins Allergy Hives Verified 09/24/22 08:50 Family History Mother CVA (cerebral vascular accident) CAD (coronary artery disease) Hypertension Heart disease Myocardial infarction Father CAD (coronary artery disease) Heart disease Hypertension Myocardial infarction Surgical History H/O umbilical hernia repair History of bilateral tubal ligation History of eye surgery Hx of cataract surgery S/P lens implant Status post glaucoma surgery Status post tonsillectomy and adenoidectomy Social History household members: none housing: apartment Smoking Status: Current every day smoker tobacco type: cigarettes how long ago did patient quit smoking: Patient reports 1/2 ppd cigarette tobacco use since teen. alcohol intake: never substance use type: does not use ROS <Dr. Courtney Gaxiola MD - Last Filed: 10/18/22 22:26> ROS ED Constitutional Constitutional ED: Denies chills or fever(s) Eyes Eyes: Reports other Details: Chronic poor vision but not changed from baseline. ; Denies change in vision ENT ENT ED: Denies rhinorrhea or sore throat Cardiovascular Cardiovascular: Denies chest pain or palpitations Respiratory/Chest Respiratory/Chest: Denies cough or dyspnea Gastrointestinal Gastrointestinal: Denies abdominal pain, nausea or vomiting Genitourinary Genitourinary ED: Denies dysuria Musculoskeletal Musculoskeletal: Denies back pain or extremity pain Integumentary Denies Abrasions or rash Neurologic Neurologic: Reports weakness; Denies headache(s) Psychiatric Psychiatric: Denies anxiety or depression Endocrine Endocrinology: Denies polydipsia or polyuria Allergic/Immunologic Allergic/Immunologic ED: Denies lip swelling or urticaria EXAM <Dr. Courtney Gaxiola MD - Last Filed: 10/18/22 22:26> Physical Exam Const Vital Signs: 10/18/22 20:01 10/18/22 20:01 10/18/22 20:02 Temperature 97.8 F Temperature Source Oral Pulse Rate 89 90 Respiratory Rate 17 18 Blood Pressure 199/100 H 192/97 H Blood Pressure Mean 133 128 Pulse Ox 100 100 100 Oxygen Delivery Method Room Air Room Air Room Air 10/18/22 20:25 10/18/22 20:30 10/18/22 20:43 Temperature 97.5 F L 97.5 F L Temperature Source Oral Oral Pulse Rate 89 89 89 Respiratory Rate 19 H 19 H 15 Blood Pressure 207/106 H 200/105 H 200/105 H Blood Pressure Mean 139 136 136 Pulse Ox 99 99 99 Oxygen Delivery Method Room Air Room Air Room Air 10/18/22 20:48 Temperature Temperature Source Pulse Rate 91 Respiratory Rate 16 Blood Pressure 183/95 H Blood Pressure Mean 124 Pulse Ox 98 Oxygen Delivery Method Room Air Positive well nourished and well developed General Appearance ED: well developed HEENT Reports moist mucous membranes Eyes EOMs intact bilaterally Neck no lymphadenopathy Chest Wall inspection of chest normal and palpation of chest normal Resp normal respiratory effort and clear to auscultation bilaterally Cardio Rate: regular rate Rhythm: regular rhythm GI normal to inspection, nondistended, normoactive bowel sounds Extremity normal to inspection Neuro oriented x3 Neuro Narrative: See NIH stroke score. Psych mental status grossly normal NIHSS NIHSS Initial: 1a Level of Consciousness: 0 1b LOC Questions (Score 2 if aphasic/stupor): 0 1c LOC Commands (Only score 1st attempt): 0 2 Best Gaze (If aphasic, use reflexive mvmts.): 0 3 Visual: 1 4 Facial Palsy: 1 5 Motor Arm Right (UN = amputation/fusion): 0 5 Motor Arm Left: 1 6 Motor Leg Right: 0 6 Motor Leg Left: 0 7 Limb ataxia (Only + if out of proportion): 1 8 Sensory (Aphasia/stupor=0 or 1, coma=2): 0 9 Best Language: 0 10 Dysarthria (mute, coma=2, intubated=UN): 0 11 Extinction and Inattention (only scored if +): 0 Total Score: 4 <Dr. Danielle Goldstein MD - Last Filed: 10/20/22 16:52> Physical Exam Const Vital Signs: 10/18/22 20:01 10/18/22 20:01 10/18/22 20:02 Temperature 97.8 F Temperature Source Oral Pulse Rate 89 90 Respiratory Rate 17 18 Blood Pressure 199/100 H 192/97 H Blood Pressure Mean 133 128 Pulse Ox 100 100 100 Oxygen Delivery Method Room Air Room Air Room Air 10/18/22 20:25 10/18/22 20:30 10/18/22 20:43 Temperature 97.5 F L 97.5 F L Temperature Source Oral Oral Pulse Rate 89 89 89 Respiratory Rate 19 H 19 H 15 Blood Pressure 207/106 H 200/105 H 200/105 H Blood Pressure Mean 139 136 136 Pulse Ox 99 99 99 Oxygen Delivery Method Room Air Room Air Room Air 10/18/22 20:48 Temperature Temperature Source Pulse Rate 91 Respiratory Rate 16 Blood Pressure 183/95 H Blood Pressure Mean 124 Pulse Ox 98 Oxygen Delivery Method Room Air NIHSS NIHSS Initial: Total Score: 4 MDM <Dr. Courtney Gaxiola MD - Last Filed: 10/18/22 22:26> MDM MDM Narrative Medical decision making narrative: Patient was met and EMS doors as prehospital stroke alert had been initiated. Patient immediately sent to CT scan for CT scan of the head along with CTA of the head and neck. Labwork obtained to evaluate for leukocytosis, anemia, and electrolyte derangement. EKG obtained to evaluate for cardiac arrhythmia/ischemia. Chest x- ray obtained to evaluate for acute lung pathology,cardiac size, or mediastinal abnormality. History & Record Review Discussion w/independent historian: EMS personnel and Patient Additional record(s) reviewed:: Prior inpatient record, Prior ED visit and Priorlabs Lab Data Attestation: I reviewed the patient's lab results. Labs: Laboratory Results - last 24 hr 10/18/22 10/18/22 10/18/22 19:35 19:35 19:35 WBC 12.2 H RBC 4.45 Hgb 12.6 Hct 38.3 MCV 86.1 MCH 28.3 MCHC 32.9 RDW Std Deviation 39.5 RDW Coeff of Jovani 12.6 Plt Count 275 MPV 11.4 Immature Gran % (Auto) 0.400 Neut % (Auto) 72.2 H Lymph % (Auto) 17.9 L [place] % (Auto) 7.5 Eos % (Auto) 1.4 Baso % (Auto) 0.6 Absolute Neuts (auto) 8.8 H Absolute Lymphs (auto) 2.18 Nucleated RBC % 0 PT 13.1 INR 1.0 APTT 25.8 Sodium 138 Potassium 3.5 Chloride 108 H Carbon Dioxide 25.0 Anion Gap 5 BUN 22 H Creatinine 1.25 H Estim Creat Clear Calc 38.82 Est GFR (MDRD) Af Amer 57 L Est GFR (MDRD) Non-Af 47 L BUN/Creatinine Ratio 17.6 Glucose 128 H Calcium 9.1 Troponin I High Sens 7 Radiography Chest X-Ray - ED: 1 View, Chronic Changes and No Infiltrates Diagnostic Testing: Clinical Impression(s) from Imaging Studies Brain CT 10/18/22 19:44 IMPRESSION: There are no acute findings. Chronic involutional changes of the brain. N.B. : The above Results were Read Back by Juanito Song MD to Courtney Gaxiola MD, and understanding confirmed on 10/18/2022 20:02:08 (ET). Electronically Signed: Juanito Song MD at 20:02 EDT , Head/Neck CTA 10/18/22 19:44 IMPRESSION: 1. There is mild atherosclerotic plaque formation of the origin of the right internal carotid artery with less than 50% cross sectional diameter stenosis. ALL ABOVE CRITERIA BY NASCET. 2. There is mild atherosclerotic plaque formation of the origin of the left internal carotid artery with less than 50% cross sectional diameter stenosis. ALL ABOVE CRITERIA BY NASCET. 3. There is calcified plaque formation of the right cavernous carotid artery, with a mild stenosis (less than 50%). ALL ABOVE CRITERIA BY NASCET. 4. There is calcified plaque formation of the left cavernous carotid artery, with a mild stenosis (less than 50%). ALL ABOVE CRITERIA BY NASCET. N.B. : The above Results were Read Back by Juanito Song MD to Courtney Gaxiola MD, and understanding confirmed on 10/18/2022 20:14:51 (ET). Electronically Signed: Juanito Song MD at 20:15 EDT , ADDENDUM: 10/18/222021 IMPRESSION: 1. There is mild atherosclerotic plaque formation of the origin of the right internal carotid artery with less than 50% cross sectional diameter stenosis. ALL ABOVE CRITERIA BY NASCET. 2. There is mild atherosclerotic plaque formation of the origin of the left internal carotid artery with less than 50% cross sectional diameter stenosis. ALL ABOVE CRITERIA BY NASCET. 3. There is calcified plaque formation of the right cavernous carotid artery, with a mild stenosis (less than 50%). ALL ABOVE CRITERIA BY NASCET. 4. There is calcified plaque formation of the left cavernous carotid artery, with a mild stenosis (less than 50%). ALL ABOVE CRITERIA BY NASCET. N.B. : The above Results were Read Back by Juanito Song MD to Courtney Gaxiola MD, and understanding confirmed on 10/18/2022 20:14:51 (ET). Electronically Signed: Juanito Song MD at 20:15 EDT , Chest X-Ray 10/18/22 20:15 IMPRESSION: No acute findings in the chest. Electronically Signed: Juanito Song MD at 20:27 EDT , EKG Initial EKG: Attestation: I personally reviewed and interpreted this EKG as follows: Interpretation: Sinus Rhythm (Sinus 89 with no acute ischemia.) Treatment and Re-Evaluation Narrative: While patient was in CT imaging was able to review her prior hospital records. Patient was admitted to the hospital earlier this month on September 24 with similar symptoms of high blood pressure and left-sided weakness. At that time her CT showed evidence of an old right basal ganglia stroke. During her inpatient work-up an acute right lacunar ischemic stroke was noted on MRI. There is also documentation that the patient had a left occipital lobe infarct in June of this year. At the time of discharge it was recommended the patient take 21 daysof dual antiplatelet therapy with Plavix and aspirin along with a statin. After21 days she could take just aspirin and the statin. Patient tells me she never took any Plavix. She states that the only medication she has been taking is aspirin and lisinopril. She admits to running out of her lisinopril 4 days ago. Radiologist called me with both CT as well as CTA head/neck results. There is no evidence of acute ischemic infarct. There is no evidence of hemorrhage. There is no evidence of LVO. Neurology from [facility] evaluated the patient on the robot. Given that the patient had a stroke earlier this month which left her with some left-sided residual deficits, and that she is unable to tell us if it is significantly worse now, he does not feel patient should receive tenecteplase. He discussed this with her and she is comfortable with this plan. EKG is sinus rhythm at 89 bpm. No acute ischemia notation is unremarkable with chronic changes only. CBC reveals a white count of 12.2 with 72% neutrophils. Hemoglobin is normal at 12.6. Coags are normal. Chemistry studies significant only for a BUN of 22 and a creatinine 1.25. Her glucose is 128. Troponin is normal at 7. At this time neurology does recommend observation for repeat MRI to ensure no evidence of a new, acute ischemic infarct. It is also noted that patient was supposed to follow-up for a 30-day event monitor, however she has not done this. <Dr. Danielle Goldstein MD - Last Filed: 10/20/22 16:52> [facility] Lab Data Labs: Laboratory Results - last 24 hr 10/18/22 10/18/22 10/18/22 19:35 19:35 19:35 WBC 12.2 H RBC 4.45 Hgb 12.6 Hct 38.3 MCV 86.1 MCH 28.3 MCHC 32.9 RDW Std Deviation 39.5 RDW Coeff of Jovani 12.6 Plt Count 275 MPV 11.4 Immature Gran % (Auto) 0.400 Neut % (Auto) 72.2 H Lymph % (Auto) 17.9 L [place] % (Auto) 7.5 Eos % (Auto) 1.4 Baso % (Auto) 0.6 Absolute Neuts (auto) 8.8 H Absolute Lymphs (auto) 2.18 Nucleated RBC % 0 PT 13.1 INR 1.0 APTT 25.8 Sodium 138 Potassium 3.5 Chloride 108 H Carbon Dioxide 25.0 Anion Gap 5 BUN 22 H Creatinine 1.25 H Estim Creat Clear Calc 38.82 Est GFR (MDRD) Af Amer 57 L Est GFR (MDRD) Non-Af 47 L BUN/Creatinine Ratio 17.6 Glucose 128 H Calcium 9.1 Troponin I High Sens 7 Radiography Diagnostic Testing: Clinical Impression(s) from Imaging Studies Brain CT 10/18/22 19:44 IMPRESSION: There are no acute findings. Chronic involutional changes of the brain. N.B. : The above Results were Read Back by Juanito Song MD to Courtney Gaxiola MD, and understanding confirmed on 10/18/2022 20:02:08 (ET). Electronically Signed: Juanito Song MD at 20:02 EDT , Head/Neck CTA 10/18/22 19:44 IMPRESSION: 1. There is mild atherosclerotic plaque formation of the origin of the right internal carotid artery with less than 50% cross sectional diameter stenosis. ALL ABOVE CRITERIA BY NASCET. 2. There is mild atherosclerotic plaque formation of the origin of the left internal carotid artery with less than 50% cross sectional diameter stenosis. ALL ABOVE CRITERIA BY NASCET. 3. There is calcified plaque formation of the right cavernous carotid artery, with a mild stenosis (less than 50%). ALL ABOVE CRITERIA BY NASCET. 4. There is calcified plaque formation of the left cavernous carotid artery, with a mild stenosis (less than 50%). ALL ABOVE CRITERIA BY NASCET. N.B. : The above Results were Read Back by Juanito Song MD to Courtney Gaxiola MD, and understanding confirmed on 10/18/2022 20:14:51 (ET). Electronically Signed: Juanito Song MD at 20:15 EDT , ADDENDUM: 10/18/222021 IMPRESSION: 1. There is mild atherosclerotic plaque formation of the origin of the right internal carotid artery with less than 50% cross sectional diameter stenosis. ALL ABOVE CRITERIA BY NASCET. 2. There is mild atherosclerotic plaque formation of the origin of the left internal carotid artery with less than 50% cross sectional diameter stenosis. ALL ABOVE CRITERIA BY NASCET. 3. There is calcified plaque formation of the right cavernous carotid artery, with a mild stenosis (less than 50%). ALL ABOVE CRITERIA BY NASCET. 4. There is calcified plaque formation of the left cavernous carotid artery, with a mild stenosis (less than 50%). ALL ABOVE CRITERIA BY NASCET. N.B. : The above Results were Read Back by Juanito Song MD to Courtney Gaxiola MD, and understanding confirmed on 10/18/2022 20:14:51 (ET). Electronically Signed: Juanito Song MD at 20:15 EDT , Chest X-Ray 10/18/22 20:15 IMPRESSION: No acute findings in the chest. Electronically Signed: Juanito Song MD at 20:27 EDT , <Dr. Courtney Gaxiola MD - Last Filed: 10/18/22 22:26> Critical Care Time Critical Care Time: Yes Critical care time (excluding procedures): 30-74 minutes (30 minutes), Discussing w/Patient &/or Family/Ancillary Services Manager Therapy, Discussing w/Consultants, ArrangingAdmission or Transfer and Performing Direct Patient Care at Bedside Discharge Plan Dx/Rx/DC Orders Clinical Impression: CVA (cerebral vascular accident) Disposition Disposition: Acute Care Hospital [facility] What to do if you have Problems For any increased pain, shortness of breath, bleeding, nausea or vomiting, chestpain, or any unexpected problems, contact your Primary Care Provider. Call [facility] ([phone]) or report to the closest Emergency Room. Call 911 if necessary. 10/18/22 2226 <Electronically signed by Courtney Gaxiola MD> Cosigner Signature (if applicable): 10/20/22 1652 <Electronically signed by Danielle Goldstein MD> CC: Dr. Desean Bonilla MD ~ Signed [facility] Work Phone: 1(716) 590-328705-02-[address] Alves [facility] October 20, 2022 1:26pm Note Date/Time October 20, 2022 1:03pm [facility] Medical Records Department [address] [place] [id number] Progress Note - Hospitalist 10/20/22 1246 MR#: [id number] Acct: [id number] Name: ZEKE RAY Rep #:[id number] : 1970 52 From: Roger Broderick PCP: Dr. Desean Bonilla MD Status :ADM IN Location: [place] [address]- 1 Reason for Visit Reason for Visit: Diagnoses Hypertensive emergency (10/18/22) Cerebral infarction, unspecified (10/18/22) Subjective Subjective Follow-up for acute on recurrent ischemic stroke. Objective Data Objective Data Vital Signs: Vital Signs Temp Pulse Resp BP Pulse Ox O2 Del Method 97.7 F L 74 18 195/94 H 98 Room Air 10/20/22 12:20 10/20/22 12:20 10/20/22 12:20 10/20/22 12:20 10/20/22 12:20 10/20/22 12:20 Oxygen Delivery Method Room Air Weight: 146 lb 6.191 oz Body Mass Index (BMI) 27.6 Intake & Output: Intake and Output for Last 24 Hours 10/18/22 10/19/22 10/20/22 23:59 23:59 23:59 Intake Total 860 / 1100 240 / 240 Output Total 800 / 1000 200 / 200 Balance 60 / 100 40 / 40 Lab / Micro Data Result Diagrams: 10/20/22 05:25 10/20/22 05:25 Labs: Laboratory Results - last 24 hr 10/20/22 05:25: WBC 8.4, RBC 4.37, Hgb 12.2, Hct 37.6, MCV 86.0, MCH 27.9, MCHC 32.4, RDW Std Deviation 39.8, RDW Coeff of Jovani 12.7, Plt Count 264, MPV 11.5, Immature Gran % (Auto) 0.200, Neut % (Auto) 71.4 H, Lymph % (Auto) 11.4 L, [place] % (Auto) 9.0, Eos % (Auto) 7.3 H, Baso % (Auto) 0.7, Absolute Neuts (auto) 6.0, Absolute Lymphs (auto) 0.96, Nucleated RBC % 0 10/20/22 05:25: PT 13.0, INR 1.0 10/20/22 05:25: Sodium 140, Potassium 3.8, Chloride 109 H, Carbon Dioxide 24.0, Anion Gap 7, BUN 24 H, Creatinine 1.24 H, Estim Creat Clear Calc 39.14, Est GFR (MDRD) Af Amer 58 L, Est GFR (MDRD) Non-Af 48 L, BUN/Creatinine Ratio 19.4, Glucose 92, Calcium 8.7 Radiography Diagnostic Testing: Radiology Impression Brain MRI 10/19/22 11:30 IMPRESSION: 1. Subacute linear ischemic infarct in the lateral aspect of the right thalamus including the adjacent medial lemniscus of the right midbrain are new findings when compared to 09/24/2022. 2. Prior tiny subacute lacunar ischemic infarct in the right posterior periventricular white matter is not visible on today''s exam when compared to 09/24/2022. 3. Confluent chronic white matter ischemic changes in both cerebral hemispheres and multiple small old lacunar cystic infarcts in the white matter of both cerebral hemispheres are unchanged. Transesophageal Echocardiogram 10/20/22 07:17 Interpretation Summary Normal LV size. Left ventricular systolic function is normal. Moderate concentric left ventricular hypertrophy. Bubble contrast study negative for right to left interatrial shunt. No thrombus is detected in the left atrial appendage. Ordering Physician: Roger Alves Referring Physician: Janet Bonilla Performed By: Ramona Crooks, RDFÁTIMA, RVT Physical Exam Narrative Seen and examined. Patient more agitated, refusing NIH stroke scale, grumpy and abusive to the nurses. She complains of right-sided headache and Toradol was given. She further had ASHLIE Physical exam: General: Alert, Oriented x3, Cooperative HEENT: Atraumatic, PERRLA, EOMI, Normocephalic. 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 Oral: Oral mucosa moist. No Gingival or Mucosal Lesions/ Ulcerations Neck: Supple, No JVD, Negative Carotid Bruits Lungs: Air entry diminished in bilateral lung bases. No crepitation/rhonchi Cardiovascular: Regular rate, Regular Rhythm, Normal S1, Normal S2, No murmurs Abdomen: Bowel Sounds Present, Soft, Non Tender, Non-Distended : No renal angle tenderness. No suprapubic tenderness. Extremities: No edema, Capillary Refill Less than 3 Seconds Skin: No rashes, No breakdown Musculoskeletal: Left upper and lower extremity weakness from old stroke. No Tenderness to Palpation of Joints or Extremities. Neurological: Cranial nerves II-XII grossly intact, DTR 2+/4. No acute change in speech, swallow, dysarthria or acute language deficit. Psych/Mental Status: Flat affect. Agitated. Assessment & Plan Assessment/Plan (1) CVA (cerebral vascular accident): (2) Hypertensive emergency: PLAN: Plan This 52-year-old female admitted after she had a fall and felt like left-sided weakness. Patient had a stroke alert in the ED and was evaluated by [facility] teleneurologist. 1. Concern for new stroke with history of recent recurrent multiple ischemic infarct in 2022: Patient is being admitted in PCU. Patient had left occipital infarct in June 2022. She was again admitted with acute right lacunar ischemic infarct in the right posterior periventricular white matter. This timepatient had CTA head and neck which shows less than 50% bilateral ICA and ECA. MRI brain, not officially reported. [facility] teleneurologist impression was that there is no new deficit or worsening than her baseline and risk-benefit ratio ofthrombolytic high therefore thrombolytic was not given. Patient on full stroke work-up with PT OT and speech evaluation. Last lipid panel on 09/25/22: Triglycerides 63; cholesterol 144; LDL: 78; VLDL 13;HDL 53. Patient had recent history of acute liver injury. atorvastatin 40 mgnightly. On dual antiplatelet agent. PT, OT, speech therapy/swallow evaluation and management, nursing NIH stroke scale, BP and glucose monitoring and control as per stroke protocol. Permissive hypertension. Control blood pressure with labetalol for systolic blood pressure of more than 220 or diastolic blood pressure of more than 120. Echocardiogram on 09/24/2022 showed severe concentric left ventricular hypertrophy. Left ventricular EF was 75%. Normal right and left atria. MRI brain reported subacute linear ischemic infarct in lateral aspect of right thalamus including adjacent medial left discussed of right midbrain. Prior tinysubacute lacunar ischemic infarct of right posterior periventricular white matter. 10/20: Patient was seen by [facility] neurology and requested ASHLIE. Neurologist impression was acute right thalamus infarct with worsening left-sided weakness numbness and clumsiness. This might be related to her methamphetamine use and not adherence with aspirin Plavix and statin. With bilateral infarct cardioembolic source was also consideration. I personally discussed with the distribution analyst Dr. Clarke and ASHLIE was done and reported normal. Bubble contrast study negative for R to L interatrial shunt and no thrombus detected in atrial appendage. Patient does not have fever and ASHLIE was negative for vegetation therefore I do not think she needs blood cultures. U tox ordered. Atorvastatin dose increased to 80 mg daily. After discussion with distribution analyst Dr. Clarke we agreed on aspirin and low-dose Xarelto2.5 mg twice daily as per the new study of association of low-dose rivaroxaban with aspirin, Compass trial published in [facility], March 06, 2019. Therefore patient will be discharged on aspirin and low-dose Xarelto, high intensity statin and 30-day event monitor. We will discontinue Plavix at time of discharge. 2. Hypertensive emergency Patient with severely elevated blood pressure with highest systolic blood pressure of 224 and highest diastolic blood pressure of 106. On IV labetalol and hydralazine as needed as per stroke protocol. 5/2:Patient on permissive hypertension duration. 3. Chronic nicotine/tobacco use and history of polysubstance use:On her previous admission her urine drug screen was positive for amphetamines as well as MDMA and cannabis. Patient counseled to stop smoking. U tox ordered. 4. DVT prophylaxis: Discontinue if platelet count drops less than 50,000 or hemoglobin less than 8 g% 4. Total time of the visit including total time spent in counseling or coordinationof care, (more than 50% of the total time, spent in obtaining medical information from nurses and other ancillary care providers,explaining to the patient about labs, imaging, diagnosis and management of active complex medical conditions), medical record review, discussion with distribution analyst and [facility] neurologist, review of labs and imaging and ASHLIE is 55 minutes Charges/Coding Visit Charges Inpatient E&M: 37069 Subs Hosp L3 10/20/22 1326 <Electronically signed by Roger Alves MD> Cosigner Signature (if applicable): CC: ~ Signed [facility] Work Phone: 1([phone]) 473-477805-02-[address] Alves [facility] October 20, 2022 1:16pm Note Date/Time October 20, 2022 12:30p [facility] Medical Records Department [address] [place] [address] Transfer to [facility] MR#: [id number] Acct: [id number] Name: ZEKE RAY Rep #:[id number] : 1970 52 From: Roger Broderick PCP: Dr. Desean Bonilla MD Status :ADM IN Certification of patient admission REQUIRED AT TIME OF ADMISSION. I CERTIFY THAT POST-HOSPITAL ECF SERVICES ARE REQUIRED TO BE GIVEN ON AN IN-PATIENT BASIS BECAUSE OF THE ABOVE NAMED PATIENT'S NEED FOR GROUP HOME CARE ON A CONTINUING BASIS FOR THE CONDITION(S) FOR WHICH HE/SHE WAS RECEIVING IN-PATIENT HOSPITAL SERVICES PRIOR TO HIS/HER TRANSFER TO THE F. 10/20/22 1316<Electronically signed by Roger Alves MD> Diet Diet Order/Speech Therapy: 10/20/22 00:01 NPO [Diet: Nothing Per Oral] Is pt able to select menu?: Yes Diet Comments: for ASHLIE tomorrow a.m. Routine Orders/Code Status Suppository Type: Dulcolax 10mg Suppository Frequency: Daily PRN Code Status: Full Code Therapies Weight Bearing: Weight bearing as tolerated Extremity Affected:: Bilateral Lower Physical Therapy: Eval and Treat Occupational Therapy: Eval and Treat Speech Therapy: Eval and Treat Problem/Diagnosis (1) CVA (cerebral vascular accident): Status: Acute Code(s): I63.9 - Cerebral infarction, unspecified (2) Hypertensive emergency: Status: Acute Code(s): I16.1 - Hypertensive emergency Allergies/Procedures Done in Hospital Allergies Penicillins Allergy (Verified 09/24/22 08:50) Hives Type of Care/Length of Stay Estimated LOS: Convalescent Care Less Than 30 days Type of Care Needed: Skilled Rehab Potential: Good Prognosis: Good Additional Orders/Day of Discharge Day of Discharge: 10/20/22 Dietary and Speech Recommendations Dietitian Recommendations/Changes: Continue cardiac diet; ONS if PO fails at meals. Discharge Plan Admission Admit Date/Time: 10/18/22 21:05 Primary Reason for Your Visit: Right thalamus ischemic stroke Attending Provider: Roger Alves Primary Care Provider: Desean Bonilla Consulting Providers: Hakeem Bolton Instructions Additional Instructions / Restrictions: Advised to keep SBP 1 50-1 60 for 1 week and then decrease to 130 over next 2 to4 weeks. Discharge Orders/Prescriptions Prescriptions: New atorvastatin 40 mg Tablet 80 mg PO QHS Qty: 0 0RF sennosides-docusate sodium [Stool Softener-Stimulant Laxat] 8.6-50 mg Tablet 2 tab PO BID PRN PRN (Reason: Constipation) Qty: 0 0RF Xarelto 2.5 mg tablet 2.5 mg PO BID 30 Days Qty: 60 2RF Continued aspirin 81 mg tablet,chewable 81 mg PO DAILY Label Comments: TAKE 1 TABLET BY MOUTH EVERY DAY multivitamin Capsule 1 cap PO DAILY polyethylene glycol 3350 17 gram powder in packet 17 g PO DAILY nicotine 21 mg/24 hr patch 24 hour 21 mg transdermal DAILY 30 Days Qty: 30 0RF Changed lisinopril 20 mg tablet 40 mg PO DAILY 30 Days Qty: 0 0RF Label Comments: TAKE 1 TABLET BY MOUTH EVERY DAY Rx Instructions: Suggested to keep systolic blood pressure 1 50-160 FOR 1 week and then decrease to 130 mg over the next 2 to 4 weeks Other Ambulatory Orders: 30 Day Event Recorder Preventi (Urgent) Timeframe: 1 Month Facility: [facility] - Location: Cardiovascular Services Ordered By: Dr. Roger Alves Referrals / Follow Up: Desean Bonilla MD [Primary Care Provider] - Disposition Disposition (needs filled in before D/C Order can be placed): [facility] 10/20/22 1316 <Electronically signed by Roger Alves MD> Cosigner Signature (if applicable): CC: Dr. Desean Bonilla MD; Dr. Hakeem Bolton MD ~ [facility] Work Phone: 1(306) 228-903805-01-[address] Alves [facility] October 19, 2022 4:45pm Note Date/Time October 19, 2022 7:45am [facility] Medical Records Department [address] [place] [address] Progress Note - Hospitalist 10/19/22 0743 MR#: [id number] Acct: [id number] Name: ZEKE RAY Rep #:[id number] : 1970 52 From: Roger Broderick PCP: Dr. Desean Bonilla MD Status :ADM IN Location: [place] [address]- 1 Reason for Visit Reason for Visit: Diagnoses Hypertensive emergency (10/18/22) Cerebral infarction, unspecified (10/18/22) Subjective Subjective Patient had left occipital infarct in June 2022. She was again admitted withacute right lacunar ischemic infarct in the right posterior periventricular white matter. The patient was discharged on dual antiplatelet agent and high intensity statin. Patient had full work-up done at that time. Objective Data Objective Data Vital Signs: Vital Signs Temp Pulse Resp BP Pulse Ox O2 Del Method 98.5 F 70 18 201/98 H 99 Room Air 10/19/22 06:20 10/19/22 06:20 10/19/22 06:20 10/19/22 06:20 10/19/22 06:20 10/19/22 06:20 Oxygen Delivery Method Room Air Weight: 146 lb 6.191 oz Body Mass Index (BMI) 27.6 Intake & Output: Intake and Output for Last 24 Hours 10/17/22 10/18/22 10/19/22 23:59 23:59 23:59 Intake Total 300 / 300 Output Total 400 / 400 Balance -100 / -100 Lab / Micro Data Result Diagrams: 10/19/22 06:30 10/19/22 06:30 Labs: Laboratory Results - last 24 hr 10/18/22 19:35: WBC 12.2 H, RBC 4.45, Hgb 12.6, Hct 38.3, MCV 86.1, MCH 28.3, MCHC 32.9, RDW Std Deviation 39.5, RDW Coeff of Jovani 12.6, Plt Count 275, MPV 11.4, Immature Gran % (Auto) 0.400, Neut % (Auto) 72.2 H, Lymph % (Auto) 17.9 L,[place] % (Auto) 7.5, Eos % (Auto) 1.4, Baso % (Auto) 0.6, Absolute Neuts (auto) 8.8 H, Absolute Lymphs (auto) 2.18, Nucleated RBC % 0 10/18/22 19:35: PT 13.1, INR 1.0, APTT 25.8 10/18/22 19:35: Sodium 138, Potassium 3.5, Chloride 108 H, Carbon Dioxide 25.0, Anion Gap 5, BUN 22 H, Creatinine 1.25 H, Estim Creat Clear Calc 38.82, Est GFR (MDRD) Af Amer 57 L, Est GFR (MDRD) Non-Af 47 L, BUN/Creatinine Ratio 17.6, Glucose 128 H, Calcium 9.1, Troponin I High Sens 7 10/19/22 06:30: WBC 10.6, RBC 4.88, Hgb 13.6, Hct 42.2, MCV 86.5, MCH 27.9, MCHC32.2, RDW Std Deviation 39.9, RDW Coeff of Jovani 12.7, Plt Count 263, MPV 11.9, Immature Gran % (Auto) 0.300, Neut % (Auto) 64.6, Lymph % (Auto) 21.2, [place] % (Auto) 8.9, Eos % (Auto) 4.2, Baso % (Auto) 0.8, Absolute Neuts (auto) 6.9, Absolute Lymphs (auto) 2.24, Nucleated RBC % 0 Radiography Diagnostic Testing: Radiology Impression Brain CT 10/18/22 19:44 IMPRESSION: There are no acute findings. Chronic involutional changes of the brain. Head/Neck CTA 10/18/22 19:44 IMPRESSION: 1. There is mild atherosclerotic plaque formation of the origin of the right internal carotid artery with less than 50% cross sectional diameter stenosis. ALL ABOVE CRITERIA BY NASCET. 2. There is mild atherosclerotic plaque formation of the origin of the left internal carotid artery with less than 50% cross sectional diameter stenosis. ALL ABOVE CRITERIA BY NASCET. 3. There is calcified plaque formation of the right cavernous carotid artery, with a mild stenosis (less than 50%). ALL ABOVE CRITERIA BY NASCET. 4. There is calcified plaque formation of the left cavernous carotid artery, with a mild stenosis (less than 50%). ALL ABOVE CRITERIA BY NASCET. N.B. : The above Results were Read Back by Juanito Song MD to Courtney Gaxiola MD, and understanding confirmed on 10/18/2022 20:14:51 (ET). Electronically Signed: Juanito Song MD at 20:15 EDT , ADDENDUM: 10/18/222021 IMPRESSION: 1. There is mild atherosclerotic plaque formation of the origin of the right internal carotid artery with less than 50% cross sectional diameter stenosis. ALL ABOVE CRITERIA BY NASCET. 2. There is mild atherosclerotic plaque formation of the origin of the left internal carotid artery with less than 50% cross sectional diameter stenosis. ALL ABOVE CRITERIA BY NASCET. 3. There is calcified plaque formation of the right cavernous carotid artery, with a mild stenosis (less than 50%). ALL ABOVE CRITERIA BY NASCET. 4. There is calcified plaque formation of the left cavernous carotid artery, with a mild stenosis (less than 50%). ALL ABOVE CRITERIA BY NASCET. N.B. : The above Results were Read Back by Juanito Song MD to Courtney Gaxiola MD, and understanding confirmed on 10/18/2022 20:14:51 (ET). Electronically Signed: Juanito Song MD at 20:15 EDT , Chest X-Ray 10/18/22 20:15 IMPRESSION: No acute findings in the chest. Electronically Signed: Juanito Song MD at 20:27 EDT , Physical Exam Narrative Physical exam: General: Alert, Oriented x3, Cooperative HEENT: Atraumatic, PERRLA, EOMI, Normocephalic. 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 Oral: Oral mucosa moist. No Gingival or Mucosal Lesions/ Ulcerations Neck: Supple, No JVD, Negative Carotid Bruits Lungs: Air entry diminished in bilateral lung bases. No crepitation/rhonchi Cardiovascular: Regular rate, Regular Rhythm, Normal S1, Normal S2, No murmurs Abdomen: Bowel Sounds Present, Soft, Non Tender, Non-Distended : No renal angle tenderness. No suprapubic tenderness. Extremities: No edema, Capillary Refill Less than 3 Seconds Skin: No rashes, No breakdown Musculoskeletal: Left upper and lower extremity weakness from old stroke. No Tenderness to Palpation of Joints or Extremities Neurological: Cranial nerves II-XII grossly intact, DTR 2+/4. No acute change in speech, swallow, dysarthria or acute language deficit. Psych/Mental Status: Flat affect. Assessment & Plan Assessment/Plan (1) CVA (cerebral vascular accident): (2) Hypertensive emergency: PLAN: Plan This 52-year-old female admitted after she had a fall and felt like left-sided weakness. Patient had a stroke alert in the ED and was evaluated by [facility] teleneurologist. 1. Concern for new stroke with history of recent recurrent multiple ischemic infarct in 2022: Patient is being admitted in PCU. Patient had left occipital infarct in June 2022. She was again admitted with acute right lacunar ischemic infarct in the right posterior periventricular white matter. This timepatient had CTA head and neck which shows less than 50% bilateral ICA and ECA. MRI brain, not officially reported. [facility] teleneurologist impression was that there is no new deficit or worsening than her baseline and risk-benefit ratio ofthrombolytic high therefore thrombolytic was not given. Patient on full stroke work-up with PT OT and speech evaluation. Last lipid panel on 09/25/22: Triglycerides 63; cholesterol 144; LDL: 78; VLDL 13;HDL 53. Patient has a history of acute liver injury. atorvastatin 40 mg nightly. On dual antiplatelet agent. PT, OT, speech therapy/swallow evaluation and management, nursing NIH stroke scale, BP and glucose monitoring and control as per stroke protocol. Permissive hypertension. Control blood pressure with labetalol for systolic blood pressure of more than 220 or diastolic blood pressure of more than 120. Echocardiogram on 09/24/2022 showed severe concentric left ventricular hypertrophy. Left ventricular EF was 75%. Normal right and left atria 2. Hypertensive emergency Patient with severely elevated blood pressure with highest systolic blood pressure of 224 and highest diastolic blood pressure of 106. On IV labetalol and hydralazine as needed as per stroke protocol. 3. Chronic nicotine/tobacco use and history of polysubstance use:On her previous admission her urine drug screen was positive for amphetamines as well as MDMA and cannabis. Patient counseled to stop smoking. 4. DVT prophylaxis: Discontinue if platelet count drops less than 50,000 or hemoglobin less than 8 g% 4. Charges/Coding Visit Charges Inpatient E&M: 15073 Subs Hosp L2 10/19/22 1445 <Electronically signed by Roger Alves MD> Cosigner Signature (if applicable): CC: ~ Signed ADDENDUM by Dr. Roger Alves MD on 10/19/22 at 1645 Addendum Teleneurologist called me that patient had new stroke in right thalamus region which is bright and new stroke. She had right periventricular white matter stroke in first week of September 2022. With 3 strokes since June 2022 he thinks cardioembolic source even though patient had negative bubble study and 2D echo. He suggested ASHLIE. 10/19/22 1646<Electronically signed by Roger Alves MD> Cosigner Signature (if applicable): cc: ~* Signed [facility] Work Phone: 1(534) 139-731305-01-2023 History and physical note Author Dr. Bolton [facility] October 19, 2022 6:44am Note Date/Time October 18, 2022 9:1 6pm [facility] Medical Records Department [address] [place] [address] H&P Exam - Hospitalist 10/18/222114 MR#: [id number] Acct: [id number] Name: ZEKE RAY Rep #:[id number] : 1970 52 From: Hakeem Bolton MD PCP: Dr. Desean Bonilla MD Status :ADM IN Location: [facility] [id number] HPI - General General Date of Admission: 10/18/22 Date of Service: 10/18/22 Chief Complaint: Weakness of left side HPI Narrative ZEKE RAY, is a 52 F with a significant history of CVA who presents to the emergency department with left-sided weakness. Reportedly patient fell on her stairs at home. Her boyfriend reported that after the fall he realized the patient left side was weaker than usual. Also was concerned that the patient's left hand looked curled. Further facial asymmetry had worsened. Of note patient had a CVA on September 24, 2022 and was admitted to the hospital. Also he was admitted to the hospital in June 2022 for acute encephalopathy with unclear etiology and found to have lacunar infarcts with unclear age. On presentation patient was unsure whether her symptoms has worsened. However her boyfriend is sure that patient's symptoms has worsened. Because patient's boyfriend thought that patient's symptoms has worsened he called the paramedicswho brought patient to the hospital. At the emergency department patient was evaluated by telemetry neurologist who upon evaluation considered patient not a candidate of thrombolytics. [facility] Medical History Alcohol abuse CVA (cerebral vascular accident) Depression Hepatitis B Hidradenitis suppurativa Hypertension Hypertensive urgency Irregular heart beat Ischemic cerebrovascular accident (CVA) Left axillary hidradenitis Smoker Tobacco use Vision loss of left eye Vision loss of right eye Home Medications aspirin 81 mg chewable tablet 81 mg PO DAILY heart health 07/02/22 [History Last Taken Unknown] lisinopril 20 mg tablet 20 mg PO DAILY blood pressure 07/02/22 [History Last Taken 04/26/23] multivitamin 1 cap PO DAILY supplement 09/24/22 [History Last Taken Unknown] nicotine 21 mg/24 hr daily transdermal patch 21 mg transdermal DAILY Check with primary doctor 10/18/22 [History Last Taken Unknown] polyethylene glycol 3350 17 gram oral powder packet 17 g PO DAILY Check with primary doctor 10/18/22 [History Last Taken Unknown] Allergy/AdvReac Type Severity Reaction Status Date / Time Penicillins Allergy Hives Verified 09/24/22 08:50 Family History Mother CVA (cerebral vascular accident) CAD (coronary artery disease) Hypertension Heart disease Myocardial infarction Father CAD (coronary artery disease) Heart disease Hypertension Myocardial infarction Surgical History H/O umbilical hernia repair History of bilateral tubal ligation History of eye surgery Hx of cataract surgery S/P lens implant Status post glaucoma surgery Status post tonsillectomy and adenoidectomy Social History household members: none housing: apartment Smoking Status: Current every day smoker tobacco type: cigarettes how long ago did patient quit smoking: Patient reports 1/2 ppd cigarette tobacco use since teen. alcohol intake: never substance use type: does not use ROS ROS Narrative Pertinent positives and pertinent negatives as noted in HPI. All other systems were reviewed and are negative Vital Signs Vital Signs Vital Signs: 10/18/22 20:01 10/18/22 20:01 10/18/22 20:02 Temperature 97.8 F Temperature Source Oral Pulse Rate 89 90 Respiratory Rate 17 18 Blood Pressure 199/100 H 192/97 H Blood Pressure Mean 133 128 Pulse Ox 100 100 100 Oxygen Delivery Method Room Air Room Air Room Air 10/18/22 20:25 10/18/22 20:30 10/18/22 20:43 Temperature 97.5 F L 97.5 F L Temperature Source Oral Oral Pulse Rate 89 89 89 Respiratory Rate 19 H 19 H 15 Blood Pressure 207/106 H 200/105 H 200/105 H Blood Pressure Mean 139 136 136 Pulse Ox 99 99 99 Oxygen Delivery Method Room Air Room Air Room Air 10/18/22 20:48 Temperature Temperature Source Pulse Rate 91 Respiratory Rate 16 Blood Pressure 183/95 H Blood Pressure Mean 124 Pulse Ox 98 Oxygen Delivery Method Room Air Weight Weight: 67.8 kg Body Mass Index (BMI) 28.2 Physical Exam Narrative Physical exam: General: Well-nourished, well-developed. Head: Normocephalic, atraumatic, no tenderness Eyes: Vision is grossly intact. EOMI ENT, no trauma, moist mucous membranes, no rhinorrhea Neck: Nontender, No thyromegaly. CVS: Regular rate and rhythm. S1-S2 present. No murmur, gallop or rub. Respiratory : clear to auscultation bilaterally, chest wall nontender Abdomen: Soft, nontender, nondistended, normal bowel sounds, no masses : Deferred Back: Nontender, no CVA tenderness, no midline spinal tenderness, deformities, step-offs Extremities: Nontender full range of motion, no trauma Skin: Normal color, no trauma, abrasions Neuro: Alert, oriented, cranial nerves II through XII grossly intact. Strength in all 4 extremities was 5 out of 5. Facial droop of the left face. Not hyperreflexia and deep tendon reflexes of the knee and elbows bilaterally. Psychiatry: Normal mood. Normal affect. Not depressed. Not anxious. Results Lab / Micro Data Result Diagrams: 10/18/22 19:35 10/18/22 19:35 Labs: Laboratory Results - last 24 hr 10/18/22 19:35: WBC 12.2 H, RBC 4.45, Hgb 12.6, Hct 38.3, MCV 86.1, MCH 28.3, MCHC 32.9, RDW Std Deviation 39.5, RDW Coeff of Jovani 12.6, Plt Count 275, MPV 11.4, Immature Gran % (Auto) 0.400, Neut % (Auto) 72.2 H, Lymph % (Auto) 17.9 L,[place] % (Auto) 7.5, Eos % (Auto) 1.4, Baso % (Auto) 0.6, Absolute Neuts (auto) 8.8 H, Absolute Lymphs (auto) 2.18, Nucleated RBC % 0 10/18/22 19:35: PT 13.1, INR 1.0, APTT 25.8 10/18/22 19:35: Sodium 138, Potassium 3.5, Chloride 108 H, Carbon Dioxide 25.0, Anion Gap 5, BUN 22 H, Creatinine 1.25 H, Estim Creat Clear Calc 38.82, Est GFR (MDRD) Af Amer 57 L, Est GFR (MDRD) Non-Af 47 L, BUN/Creatinine Ratio 17.6, Glucose 128 H, Calcium 9.1, Troponin I High Sens [address] 10/18/22 19:44 IMPRESSION: There are no acute findings. Chronic involutional changes of the brain. N.B. : The above Results were Read Back by Juanito Song MD to Courtney Gaxiola MD, and understanding confirmed on 10/18/2022 20:02:08 (ET). Electronically Signed: Juanito Song MD at 20:02 EDT , Head/Neck CTA 10/18/22 19:44 IMPRESSION: 1. There is mild atherosclerotic plaque formation of the origin of the right internal carotid artery with less than 50% cross sectional diameter stenosis. ALL ABOVE CRITERIA BY NASCET. 2. There is mild atherosclerotic plaque formation of the origin of the left internal carotid artery with less than 50% cross sectional diameter stenosis. ALL ABOVE CRITERIA BY NASCET. 3. There is calcified plaque formation of the right cavernous carotid artery, with a mild stenosis (less than 50%). ALL ABOVE CRITERIA BY NASCET. 4. There is calcified plaque formation of the left cavernous carotid artery, with a mild stenosis (less than 50%). ALL ABOVE CRITERIA BY NASCET. N.B. : The above Results were Read Back by Juanito Song MD to Courtney Gaxiola MD, and understanding confirmed on 10/18/2022 20:14:51 (ET). Electronically Signed: Juanito Song MD at 20:15 EDT , ADDENDUM: 10/18/222021 IMPRESSION: 1. There is mild atherosclerotic plaque formation of the origin of the right internal carotid artery with less than 50% cross sectional diameter stenosis. ALL ABOVE CRITERIA BY NASCET. 2. There is mild atherosclerotic plaque formation of the origin of the left internal carotid artery with less than 50% cross sectional diameter stenosis. ALL ABOVE CRITERIA BY NASCET. 3. There is calcified plaque formation of the right cavernous carotid artery, with a mild stenosis (less than 50%). ALL ABOVE CRITERIA BY NASCET. 4. There is calcified plaque formation of the left cavernous carotid artery, with a mild stenosis (less than 50%). ALL ABOVE CRITERIA BY NASCET. N.B. : The above Results were Read Back by Juanito Song MD to Courtney Gaxiola MD, and understanding confirmed on 10/18/2022 20:14:51 (ET). Electronically Signed: Juanito Song MD at 20:15 EDT , Chest X-Ray 10/18/22 20:15 IMPRESSION: No acute findings in the chest. Electronically Signed: Juanito Song MD at 20:27 EDT , Assessment & Plan Assessment/Plan (1) CVA (cerebral vascular accident): (2) Hypertensive emergency: PLAN: Plan Acute CVA Serial NINDS NIH Scale ordered Impression of head CT by radiology: No acute findings. Chronic involutional changes of the brain. Hospitalist independent interpretation of head CT: Agrees with radiologist interpretation Last lipid panel on 09/25/22: Triglycerides 63; cholesterol 144; LDL: 78; VLDL 13;HDL 53. Patient has a history of acute liver injury. Will start patient on statin, atorvastatin 40 mg nightly. Will check CMP. Physical therapy, and occupational therapy to work with patient. Daily aspirin continued. We will start patient on Plavix. Permissive hypertension. Control blood pressure with labetalol for systolic blood pressure of more than 220 or diastolic blood pressure of more than 120. Head and neck CTA on presentation did not show hemodynamically significant stenosis. MRI of brain ordered Echocardiogram on 09/24/2022 showed severe concentric left ventricular hypertrophy. Left ventricular EF was 75%. Hypertensive emergency Patient with severely elevated blood pressure with highest systolic blood pressure of 224 and highest diastolic blood pressure of 106. As needed hydralazine and labetalol per stroke parameters ordered. Trend blood pressures. Leukocytosis White count 12,200. Likely reactive. Trend. Tobacco abuse Counseled Nicotine patch continued. DVT prophylaxis SCDs ordered Charges/Coding Visit Charges Inpatient E&M: 86980 Init Hosp L3 10/19/22 0644 <Electronically signed by Hakeem Bolton MD> Cosigner Signature (if applicable): CC: Dr. Desean Bonilla MD; Dr. Hakeem Bolton MD~ Signed [facility] Work Phone: 1(509) 861-809004-09-[address] Alves [facility] September 27, 2022 3:27pm Note Date/Time September 27, 2022 3:21 pm [facility] Medical Records Department [address] [place] [address] Instructions for Home/Discharge Instructions 09/27/22 1020 MR#: [id number] Acct: [id number] Name: ZEKE RAY Rep #:[id number] : 1970 52 From: Roger Broderick PCP: Dr. Desean Bonilla MD Status :ADM IN Discharge Instructions Diet Discharge Diet: 2000 mg Sodium Diet Activity Discharge Activity: Return to Normal Activity Weight Bearing Status: Weight bearing as tolerated Dressing / Incision Call your doctor if you observe: Fever of 101 or Higher, Coldness, Increased Pain, Numbness or Tingling, Change in Color, Inability to urinate, Inability to have a bowel movement, Using more than 1 pad per hour, Shortness of breath, Dizziness, Fainting spells, Swelling in the ankles, Chest pain, Prolonged hiccupping, Increased palpitations (irregular heartbeat) and Calf discomfort Follow Up Care When: IN 2 WEEKS Test Results: Test results from this visit will be discussed in further detail at your follow- up appointment, if applicable. Discharge Plan Admission Admit Date/Time: 09/25/22 10:53 Primary Reason for Your Visit: Acute ischemic stroke. Attending Provider: Roger Alves Primary Care Provider: Desean Bonilla Consulting Providers: Jeison Lamas Discharge Orders/Prescriptions Prescriptions: New polyethylene glycol 3350 17 gram Powder In Packet 17 g PO DAILY Qty: 0 0RF nicotine 21 mg/24 hr Patch 24 Hour 21 mg transdermal DAILY Qty: 30 0RF Continued atorvastatin 80 mg tablet 80 mg PO QHS Label Comments: TAKE 1 TABLET BY MOUTH EVERY DAY AT BEDTIME metoprolol succinate 50 mg tablet extended release 24 hr 50 mg PO DAILY Label Comments: TAKE 1 TABLET BY MOUTH EVERY DAY lisinopril 20 mg tablet 20 mg PO DAILY Label Comments: TAKE 1 TABLET BY MOUTH EVERY DAY aspirin 81 mg tablet,chewable 81 mg PO DAILY Label Comments: TAKE 1 TABLET BY MOUTH EVERY DAY hydrochlorothiazide 25 mg tablet 25 mg PO DAILY Label Comments: TAKE 1 TABLET BY MOUTH EVERY DAY clopidogrel 75 mg tablet 75 mg PO DAILY multivitamin Capsule 1 cap PO DAILY Other Ambulatory Orders: 30 Day Event Recorder Preventi (Urgent) Timeframe: 1 Day Facility: [facility] - Location: Cardiovascular Services Ordered By: Dr. Roger Alves Referrals / Follow Up: Desean Bonilla MD [Primary Care Provider] - Desean Bonilla MD [[facility]] - Disposition Disposition (needs filled in before D/C Order can be placed): Home Health Service 09/27/22 1527<Electronically signed by Roger Alves MD>Roger Alves MD CC: Dr. Desean Bonilla MD; Dr. Jeison Lamas MD ~ Signed [facility] Work Phone: 1(586) 150-450304-08-[address] Alves [facility] September 26, 2022 10:27am Note Date/Time September 26, 2022 10:2 4am [facility] Medical Records Department [address] [place] [address] Progress Note - Hospitalist 09/26/22 1020 MR#: [id number] Acct: [id number] Name: ZEKE RAY Rep #:[id number] : 1970 52 From: Roger Broderick PCP: Dr. Desean Bonilla MD Status :ADM IN Location: [place] [id number]- Reason for Visit Reason for Visit: Diagnoses Cerebral infarction, unspecified (09/25/22) Follow-up for infarction with hypertensive urgency blood pressure was 227/105 inthe morning. Objective Data Objective Data Vital Signs: Vital Signs Temp Pulse Resp BP Pulse Ox O2 Del Method 98 F 76 15 112/105 H 99 Room Air 09/26/22 08:41 09/26/22 09:41 09/26/22 08:41 09/26/22 09:41 09/26/22 08:50 09/26/22 08:50 Oxygen Delivery Method Room Air Weight: 143 lb 4.807 oz Body Mass Index (BMI) 27.1 Intake & Output: Intake and Output for Last 24 Hours 09/24/22 09/25/22 09/26/22 23:59 23:59 23:59 Intake Total 170 / 170 730 / 730 Balance 170 / 170 730 / 730 Lab / Micro Data Result Diagrams: 09/25/22 07:05 09/25/22 07:05 Labs: Laboratory Results - last 24 hr 09/25/22 07:05: TSH 1.03 09/25/22 07:05: Hemoglobin A1c 5.3 09/25/22 11:05: Vitamin B12 678 Radiography Diagnostic Testing: Radiology Impression Echocardiogram 09/24/22 10:53 Interpretation Summary This was a limited 2D transthoracic echocardiogram. Severe concentric left ventricular hypertrophy. The left ventricular ejection fraction is 75 %. Mild diffuse mitral valve thickening. Mild mitral annular calcification. Ordering Physician: Jeison Lamas Referring Physician: DESEAN BONILLA Performed By: Razia Mcneil RCS Physical Exam Narrative Seen and examined in the morning. BP was very high. Heart rate controlled. Complained of frontal headache. Denies history of migraine headache or other chronic headache. She stated she wants to go home. I started back PT and OT recommending SNF. Physical exam General: Alert, Oriented x3, Cooperative HEENT: Atraumatic, PERRLA, EOMI, Normocephalic. No acute tenderness over head and neck region. 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 Right eye she is very blurry. Oral: Oral mucosa moist. No Gingival or Mucosal Lesions/ Ulcerations Neck: Supple, No JVD, Negative Carotid Bruits Lungs: Air entry diminished in bilateral lung bases. No crepitation/rhonchi Cardiovascular: Regular rate, Regular Rhythm, Normal S1, Normal S2, No murmurs Abdomen: Bowel Sounds Present, Soft, Non Tender, Non-Distended : No renal angle tenderness. No suprapubic tenderness. Extremities: No edema, Capillary Refill Less than 3 Seconds Skin: No rashes, No breakdown Musculoskeletal: No Tenderness to Palpation of Joints or Extremities, left leg 4/5 at major joints. Neurological: Cranial nerves II-XII grossly intact, DTR 2+/4. Psych/Mental Status: Flat affect. Sad. Assessment & Plan Assessment/Plan (1) Ischemic cerebrovascular accident (CVA): PLAN: Plan 1. Acute right lacunar ischemic infarct in the right posterior periventricular white matter. Patient is being admitted in PCU. MRI brain shows right posterior lacunar infarct. She recently had left occipital lobe infarct in June 2022. Patient on aspirin Lipitor and Plavix. Stroke protocol with PT OT and speech evaluation. Patient will need 30-day event monitor. Sinus rhythmon monitor. PT and OT recommending SNF, pre-CERT pending. Patient refusing forSNF. SOC was consulted and recommended 21 days of DUAL antiplatelet agent and statin and then continue aspirin and statin indefinitely. 2D echo shows EF 75% with severe concentric LVH. Left and right atria are normal. Normal RV. 09/26: Patient complained of headache. Antihypertensive medication and Tylenol given. Pending pre-CERT. Therapies recommended SNF. Patient wants to go home but states she is high risk for fall. 2. Hypertensive urgency, with history of hypertension and dyslipidemia: Blood pressure control as per stroke guidelines. 09/26: Blood pressure was 227/105. 20 mg IV labetalol was given and blood pressure dropped to 112/105. Antihypertensive medicine resumed with holding parameters. 3. History of polysubstance abuse ? On her previous admission her urine drug screen was positive for amphetamines as well as MDMA and cannabis this was obtained secondary to encephalopathy. U tox has been ordered. DVT: SCDs Clinical Impression(s) from Imaging Studies Brain CT 09/24/22 08:36 IMPRESSION: Chronic involutional changes of the brain. No acute abnormality is seen. N.B. : The above Results were Read Back by Torin Minaya MD to Emery Subramanian and understanding confirmed on 09/24/2022 08:59:00 (ET). Electronically Signed: Torin Minaya MD at 9:00 EDT , ADDENDUM: 09/24/22 0907 IMPRESSION: Chronic involutional changes of the brain. No acute abnormality is seen. N.B. : The above Results were Read Back by Torin Minaya MD to Emery Subramanian and understanding confirmed on 09/24/2022 08:59:00 (ET). Electronically Signed: Torin Minaya MD at 9:00 EDT , Chest X-Ray 09/24/22 08:36 IMPRESSION: I suspect a 1.4 cm x 1.2 cm cavitary nodule in the right lower lobe. Electronically Signed: Torin Minaya MD at 10:12 EDT , Head/Neck CTA 09/24/22 08:36 IMPRESSION: Normal CTA Head and neck with contrast. N.B. : The above Results were Read Back by Torin Minaya MD to Emery Subramanian and understanding confirmed on 09/24/2022 09:01:22 (ET). Electronically Signed: Torin Minaya MD at 9:02 EDT , ADDENDUM: 09/24/22 0909 IMPRESSION: Normal CTA Head and neck with contrast. N.B. : The above Results were Read Back by Torin Minaya MD to Emery Subramanian and understanding confirmed on 09/24/2022 09:01:22 (ET). Electronically Signed: Torin Minaya MD at 9:02 EDT , Brain MRI 09/24/22 10:53 IMPRESSION: 1. Acute lacunar ischemic infarct in the right posterior periventricular white matter. 2. Previous acute linear ischemic infarcts in the left occipital lobe without obvious cystic encephalomalacia and atrophy are not obvious in today''s MRI scan. 3. Old ischemic infarct with cystic encephalomalacia and atrophy of the right occipital lobe is unchanged. 4. Confluent and chronic white matter ischemic changes in both cerebral hemispheres are unchanged. Electronically Signed: Emery Lynn MD at 12:58 EDT , ADDENDUM: 09/24/22 1315 IMPRESSION: 1. Acute lacunar ischemic infarct in the right posterior periventricular white matter. 2. Previous acute linear ischemic infarcts in the left occipital lobe without obvious cystic encephalomalacia and atrophy are not obvious in today''s MRI scan. 3. Old ischemic infarct with cystic encephalomalacia and atrophy of the right occipital lobe is unchanged. 4. Confluent and chronic white matter ischemic changes in both cerebral hemispheres are unchanged. N.B. : The above Results were Read Back by Emery Lynn MD to Adams Mchugh MD, and understanding confirmed on 09/24/2022 13:08:42 (ET). Echocardiogram 09/24/22 10:53 Interpretation Summary This was a limited 2D transthoracic echocardiogram. Severe concentric left ventricular hypertrophy. The left ventricular ejection fraction is 75 %. Mild diffuse mitral valve thickening. Mild mitral annular calcification. Charges/Coding Visit Charges Inpatient E&M: 95264 Subs Hosp L2 09/26/22 1027 <Electronically signed by Roger Alves MD> Cosigner Signature (if applicable): CC: ~ Signed [facility] Work Phone: 1(217) 353-726404-07-[address] Alves [facility] September 25, 2022 5:18pm Note Date/Time September 25, 2022 10:1 9am [facility] Medical Records Department [address] [facility] [place] [address] Progress Note - Hospitalist 09/25/22 1017 MR#: [id number] Acct: [id number] Name: ZEKE RAY Rep #:[id number] : 1970 52 From: Roger Broderick PCP: Dr. Desean Bonilla MD Status :ADM IN Location: [place] [address] Reason for Visit Reason for Visit: Diagnoses Cerebral infarction, unspecified (09/24/22) Follow-up for right lacunar infarct. Objective Data Objective Data Vital Signs: Vital Signs Temp Pulse Resp BP Pulse Ox O2 Del Method 97.6 F L 66 16 165/114 H 99 Room Air 09/25/22 05:49 09/25/22 05:49 09/25/22 05:49 09/25/22 05:49 09/25/22 07:57 09/25/22 07:57 Oxygen Delivery Method Room Air Weight: 143 lb 4.807 oz Body Mass Index (BMI) 27.1 Intake & Output: Intake and Output for Last 24 Hours 09/23/22 09/24/22 09/25/22 23:59 23:59 23:59 Intake Total 170 / 170 480 / 480 Balance 170 / 170 480 / 480 Lab / Micro Data Result Diagrams: 09/25/22 07:05 09/25/22 07:05 Labs: Laboratory Results - last 24 hr 09/25/22 07:05: WBC 7.1, RBC 4.75, Hgb 13.0, Hct 41.2, MCV 86.7, MCH 27.4, MCHC 31.6 L, RDW Std Deviation 39.8, RDW Coeff of Jovani 12.6, Plt Count 266, MPV 11.5, Immature Gran % (Auto) 0.300, Neut % (Auto) 69.5, Lymph % (Auto) 14.3 L, [place] % (Auto) 9.3, Eos % (Auto) 5.5 H, Baso % (Auto) 1.1 H, Absolute Neuts (auto) 4.9, Absolute Lymphs (auto) 1.01, Nucleated RBC % 0 09/25/22 07:05: Sodium 139, Potassium 3.7, Chloride 109 H, Carbon Dioxide 25.0, Anion Gap 5, BUN 16, Creatinine 1.19 H, Estim Creat Clear Calc 40.78, Est GFR (MDRD) Af Amer 61, Est GFR (MDRD) Non-Af 50 L, BUN/Creatinine Ratio 13.4, Glucose 92, Calcium 8.6, Triglycerides 63, Cholesterol 144, LDL Cholesterol 78, VLDL Cholesterol 13, HDL Cholesterol 53 Radiography Diagnostic Testing: Radiology Impression Brain MRI 09/24/22 10:53 IMPRESSION: 1. Acute lacunar ischemic infarct in the right posterior periventricular white matter. 2. Previous acute linear ischemic infarcts in the left occipital lobe without obvious cystic encephalomalacia and atrophy are not obvious in today''s MRI scan. 3. Old ischemic infarct with cystic encephalomalacia and atrophy of the right occipital lobe is unchanged. 4. Confluent and chronic white matter ischemic changes in both cerebral hemispheres are unchanged. Electronically Signed: Emery Lynn MD at 12:58 EDT , ADDENDUM: 09/24/22 1315 IMPRESSION: 1. Acute lacunar ischemic infarct in the right posterior periventricular white matter. 2. Previous acute linear ischemic infarcts in the left occipital lobe without obvious cystic encephalomalacia and atrophy are not obvious in today''s MRI scan. 3. Old ischemic infarct with cystic encephalomalacia and atrophy of the right occipital lobe is unchanged. 4. Confluent and chronic white matter ischemic changes in both cerebral hemispheres are unchanged. N.B. : The above Results were Read Back by Emery Lynn MD to Adams Mchugh MD, and understanding confirmed on 09/24/2022 13:08:42 (ET). Electronically Signed: Emery Lynn MD at 12:58 EDT , Physical Exam Narrative Seen and examined in the morning. Patient sad and crying. She stated she wants to go home. I started back PT andOT recommending SNF. Physical exam General: Alert, Oriented x3, Cooperative HEENT: Atraumatic, PERRLA, EOMI, Normocephalic. Bilateral vision loss of left eye and right eye as per past history Oral: No Gingival or Mucosal Lesions/ Ulcerations Neck: Supple, No JVD, Negative Carotid Bruits Lungs: Air entry diminished in bilateral lung bases. No crepitation/rhonchi Cardiovascular: Regular rate, Regular Rhythm, Normal S1, Normal S2, No murmurs Abdomen: Bowel Sounds Present, Soft, Non Tender, Non-Distended : No renal angle tenderness. No suprapubic tenderness. Extremities: No edema, Capillary Refill Less than 3 Seconds Skin: No rashes, No breakdown Musculoskeletal: No Tenderness to Palpation of Joints or Extremities, left leg 4/5 at major joints. Neurological: Cranial nerves II-XII grossly intact, DTR 2+/4. Psych/Mental Status: Flat affect. Sad. Assessment & Plan Assessment/Plan (1) Ischemic cerebrovascular accident (CVA): PLAN: Plan 1. Acute right lacunar ischemic infarct in the right posterior periventricular white matter. Patient is being admitted in PCU. MRI brain shows right posterior lacunar infarct. She recently had left occipital lobe infarct in June 2022. Patient on aspirin Lipitor and Plavix. Stroke protocol with PT OT and speech evaluation. Patient will need 30-day event monitor. Sinus rhythmon monitor. PT and OT recommending SNF, pre-CERT pending. Patient refusing forSNF. SOC was consulted and recommended 21 days of DUAL antiplatelet agent and statin and then continue aspirin and statin indefinitely. 2D echo shows EF 75% with severe concentric LVH. Left and right atria are normal. Normal RV. 2. Hypertensive urgency, with history of hypertension and dyslipidemia: Blood pressure control as per stroke guidelines. 3. History of polysubstance abuse ? On her previous admission her urine drug screen was positive for amphetamines as well as MDMA and cannabis this was obtained secondary to encephalopathy. U tox has been ordered. DVT: SCDs Clinical Impression(s) from Imaging Studies Brain CT 09/24/22 08:36 IMPRESSION: Chronic involutional changes of the brain. No acute abnormality is seen. N.B. : The above Results were Read Back by Torin Minaya MD to Emery Subramanian and understanding confirmed on 09/24/2022 08:59:00 (ET). Electronically Signed: Torin Minaya MD at 9:00 EDT , ADDENDUM: 09/24/22 0907 IMPRESSION: Chronic involutional changes of the brain. No acute abnormality is seen. N.B. : The above Results were Read Back by Torin Minaya MD to Emery Subramanian and understanding confirmed on 09/24/2022 08:59:00 (ET). Electronically Signed: Torin Minaya MD at 9:00 EDT , Chest X-Ray 09/24/22 08:36 IMPRESSION: I suspect a 1.4 cm x 1.2 cm cavitary nodule in the right lower lobe. Electronically Signed: Torin Minaya MD at 10:12 EDT , Head/Neck CTA 09/24/22 08:36 IMPRESSION: Normal CTA Head and neck with contrast. N.B. : The above Results were Read Back by Torin Minaya MD to Emery Subramanian and understanding confirmed on 09/24/2022 09:01:22 (ET). Electronically Signed: Torin Minaya MD at 9:02 EDT , ADDENDUM: 09/24/22 0909 IMPRESSION: Normal CTA Head and neck with contrast. N.B. : The above Results were Read Back by Torin Minaya MD to Emery Subramanian and understanding confirmed on 09/24/2022 09:01:22 (ET). Electronically Signed: Torin Minaya MD at 9:02 EDT , Brain MRI 09/24/22 10:53 IMPRESSION: 1. Acute lacunar ischemic infarct in the right posterior periventricular white matter. 2. Previous acute linear ischemic infarcts in the left occipital lobe without obvious cystic encephalomalacia and atrophy are not obvious in today''s MRI scan. 3. Old ischemic infarct with cystic encephalomalacia and atrophy of the right occipital lobe is unchanged. 4. Confluent and chronic white matter ischemic changes in both cerebral hemispheres are unchanged. Electronically Signed: Emery Lynn MD at 12:58 EDT , ADDENDUM: 09/24/22 1315 IMPRESSION: 1. Acute lacunar ischemic infarct in the right posterior periventricular white matter. 2. Previous acute linear ischemic infarcts in the left occipital lobe without obvious cystic encephalomalacia and atrophy are not obvious in today''s MRI scan. 3. Old ischemic infarct with cystic encephalomalacia and atrophy of the right occipital lobe is unchanged. 4. Confluent and chronic white matter ischemic changes in both cerebral hemispheres are unchanged. N.B. : The above Results were Read Back by Emery Lynn MD to Adams Mchugh MD, and understanding confirmed on 09/24/2022 13:08:42 (ET). Echocardiogram 09/24/22 10:53 Interpretation Summary This was a limited 2D transthoracic echocardiogram. Severe concentric left ventricular hypertrophy. The left ventricular ejection fraction is 75 %. Mild diffuse mitral valve thickening. Mild mitral annular calcification. Charges/Coding Visit Charges Inpatient E&M: 35973 Subs Hosp L2 09/25/22 1718 <Electronically signed by Roger Alves MD> Cosigner Signature (if applicable): CC: ~ Signed [facility] Work Phone: 1(265) 464-898004-06-2023 History and physical note Author Dr. Lamas [facility] September 24, 2022 6:02pm Note Date/Time September 24, 2022 10:3 2am [facility] Medical Records Department [address] [place] [address] H&P Exam - Hospitalist 09/24/22 1031 MR#: [id number] Acct: [id number] Name: ZEKE RAY Rep #:[id number] : 1970 52 From: Jeison thornton MD PCP: Dr. Desean Bonilla MD Status :ADM ZOHAIB Location: [place] [address] HPI - General General Date of Admission: 09/24/22 HPI Narrative ZEKE RAY, is a 52 F who presents from home with weakness and falls. Her lastknown well was last night before 9 PM when she went to bed. This morning she woke up and as she was going to the bathroom she tripped and fell twice and she feels significant weakness in her lower extremities. Teleneurology was consulted in the ER and recommended further work-up for stroke. On their exam they obtained an NIH of 3 secondary to LOC question as well as drift in her left upper extremity and decreased sensation left upper extremity. CT of the head and neck was unremarkable. She did recently have an echo at the end of June with negative bubble study, normal EF and a stage I diastolic dysfunction. She notes that she has not been taking the Plavix as she was only given 15 days worth but she has been taking all of her other medications. And she has been using methamphetamines as recently as a few days ago. [facility] Medical History Alcohol abuse CVA (cerebral vascular accident) Depression Hepatitis B Hidradenitis suppurativa Hypertension Irregular heart beat Left axillary hidradenitis Smoker Tobacco use Vision loss of left eye Vision loss of right eye Home Medications aspirin 81 mg chewable tablet 81 mg PO DAILY blood thinner 07/02/22 [History Last Taken Unknown] atorvastatin 80 mg tablet 80 mg PO QHS cholesterol 07/02/22 [History Last Taken Unknown] hydrochlorothiazide 25 mg tablet 25 mg PO DAILY blood presure 07/02/22 [History Last Taken Unknown] lisinopril 20 mg tablet 20 mg PO DAILY blood pressure 07/02/22 [History Last Taken Unknown] metoprolol succinate 50 mg tablet,extended release 24 hr 50 mg PO DAILY blood pressure 07/02/22 [History Last Taken Unknown] clopidogrel 75 mg tablet 75 mg PO DAILY Check with primary doctor 09/24/22 [History Last Taken Unknown] multivitamin 1 cap PO DAILY supplement 09/24/22 [History Last Taken Unknown] Allergy/AdvReac Type Severity Reaction Status Date / Time Penicillins Allergy Hives Verified 09/24/22 08:50 Family History Mother CVA (cerebral vascular accident) CAD (coronary artery disease) Hypertension Heart disease Myocardial infarction Father CAD (coronary artery disease) Heart disease Hypertension Myocardial infarction Surgical History H/O umbilical hernia repair History of bilateral tubal ligation History of eye surgery Hx of cataract surgery S/P lens implant Status post glaucoma surgery Status post tonsillectomy and adenoidectomy Social History household members: none Smoking Status: Current every day smoker tobacco type: cigarettes how long ago did patient quit smoking: Patient reports 1/2 ppd cigarette tobacco use since teen. alcohol intake: never substance use type: does not use ROS Constitutional Constitutional: Denies chills, fatigue, fever(s) or malaise Eyes Eyes: Denies blurry vision ENT HEENT: Denies headache(s) or nasal discharge Cardiovascular Cardiovascular: Denies chest pain, dyspnea on exertion or syncope Respiratory/Chest Respiratory/Chest: Denies cough, shortness of breath at rest or shortness of breath with exertion Gastrointestinal Gastrointestinal: Denies constipation, diarrhea, nausea or vomiting Genitourinary Genitourinary: Denies dysuria Neurologic Neurologic: Reports focal weakness; Denies numbness or tremor(s) Psychiatric Psychiatric: Denies anxiety or depression Vital Signs Vital Signs Vital Signs: 09/24/22 08:36 09/24/22 08:51 09/24/22 08:52 Temperature 97.7 F L Temperature Source Oral Pulse Rate 67 63 Respiratory Rate 18 18 Blood Pressure 211/98 H 211/98 H Blood Pressure Mean 135 135 Pulse Ox 95 100 Oxygen Delivery Method Room Air Room Air Room Air 09/24/22 09:20 09/24/22 09:00 09/24/22 09:50 Temperature Temperature Source Pulse Rate 59 L 63 64 Respiratory Rate 16 18 16 Blood Pressure 201/92 H 187/86 H 199/105 H Blood Pressure Mean 128 119 136 Pulse Ox 97 98 99 Oxygen Delivery Method Room Air Room Air Room Air Weight Weight: 143 lb 8.335 oz Body Mass Index (BMI) 26.2 Physical Exam Narrative General: Alert, Oriented x3, Cooperative, No apparent distress HEENT: Atraumatic, PERRLA, EOMI, Normocephalic Oral: Moist Mucosa Neck: Supple, No JVD Lungs: Clear to auscultation, Normal air movement, No rhonchi, No wheeze, No rales Cardiovascular: Regular rate, Regular Rhythm, Normal S1, Normal S2, No murmurs Abdomen: Soft, Non Tender, Non-Distended, No Hepato-splenomegaly Extremities: No edema, Capillary Refill Less than 3 Seconds Skin: No rashes, No breakdown Musculoskeletal: No Tenderness to Palpation of Joints or Extremities Neurological: Cranial nerves II-XII grossly intact, Motor Exam 5/5 strength throughout, Sensory exam intact to light touch and pain Psych/Mental Status: Normal Affect, Appropriate Results Lab / Micro Data Result Diagrams: 09/24/22 08:20 09/24/22 08:20 Labs: Laboratory Results - last 24 hr 09/24/22 08:20: WBC 9.2, RBC 4.81, Hgb 13.3, Hct 41.7, MCV 86.7, MCH 27.7, MCHC 31.9 L, RDW Std Deviation 40.3, RDW Coeff of Jovani 12.7, Plt Count 322, MPV 11.9, Immature Gran % (Auto) 0.200, Neut % (Auto) 58.6, Lymph % (Auto) 27.5, [place] % (Auto) 7.7, Eos % (Auto) 5.0, Baso % (Auto) 1.0, Absolute Neuts (auto) 5.4, Absolute Lymphs (auto) 2.52, Nucleated RBC % 0 09/24/22 08:20: PT 13.0, INR 1.0, APTT 27.8 09/24/22 08:20: Sodium 139, Potassium 3.4 L, Chloride 107, Carbon Dioxide 26.0, Anion Gap 6, BUN 18, Creatinine 1.32 H, Estim Creat Clear Calc 38.53, Est GFR (MDRD) Af Amer 54 L, Est GFR (MDRD) Non-Af 45 L, BUN/Creatinine Ratio 13.6, Glucose 95, Calcium 9.1, Troponin I High Sens [address] 09/24/22 08:36 IMPRESSION: Chronic involutional changes of the brain. No acute abnormality is seen. N.B. : The above Results were Read Back by Torin Minaya MD to Emery Subramanian and understanding confirmed on 09/24/2022 08:59:00 (ET). Electronically Signed: Torin Minaya MD at 9:00 EDT , ADDENDUM: 09/24/22 09 IMPRESSION: Chronic involutional changes of the brain. No acute abnormality is seen. N.B. : The above Results were Read Back by Torin Minaya MD to Emery Subramanian and understanding confirmed on 09/24/2022 08:59:00 (ET). Electronically Signed: Torin Minaya MD at 9:00 EDT , Chest X-Ray 09/24/22 08:36 IMPRESSION: I suspect a 1.4 cm x 1.2 cm cavitary nodule in the right lower lobe. Electronically Signed: Torin Minaya MD at 10:12 EDT , Head/Neck CTA 09/24/22 08:36 IMPRESSION: Normal CTA Head and neck with contrast. N.B. : The above Results were Read Back by Torin Minaya MD to Emery Subramanian and understanding confirmed on 09/24/2022 09:01:22 (ET). Electronically Signed: Torin Minaya MD at 9:02 EDT , ADDENDUM: 09/24/22 0909 IMPRESSION: Normal CTA Head and neck with contrast. N.B. : The above Results were Read Back by Torin Minaya MD to Emery Subramanian and understanding confirmed on 09/24/2022 09:01:22 (ET). Electronically Signed: Torin Minaya MD at 9:02 EDT , Assessment & Plan Assessment/Plan (1) Ischemic cerebrovascular accident (CVA): PLAN: Plan 1. Hypertensive urgency with CVA versus TIA/HTN/HLD ? She recently was admitted at the end of June for similar issue, at that time MRI was positive for small acute/subacute infarcts of the left occipital lobe ? We will allow permissive hypertension ? Can resume her home aspirin as well as Lipitor and Plavix but will hold her blood pressure medications ? MRI showed right lacunar infarct SOC was consulted recommend times one 300 mg dose of Plavix and then resuming her home Plavix as well as her aspirin ? They also do recommend on discharge with 30-day event monitor currently she isin normal sinus rhythm on the monitor. Further recommendations are pending the report 2. History of polysubstance abuse ? On her previous admission her urine drug screen was positive for amphetamines as well as MDMA and cannabis this was obtained secondary to encephalopathy ? She does admit to methamphetamines, will repeat another urine drug screen DVT: SCDs 75 minutes was spent on direct patient care as well as collaboration with healthcare professionals, documentation and chart review Charges/Coding Visit Charges Inpatient E&M: 80292 Init Hosp L3 09/24/22 180 <Electronically signed by Jeison Lamas MD> Cosigner Signature (if applicable): CC: Dr. Desean Bonilla MD; Dr. Jeison Lamas MD~ Signed [facility] Work Phone: [phone]) 127-516404-06-[address] Lamas [facility] September 24, 2022 1:09pm Note Date/Time September 24, 2022 1:10 pm [facility] Medical Records Department [address] [place] [address] Telemedicine Confirmation Receipt 09/24/22 MR#: [id number] Acct: [id number] Name: ZEKE RAY Rep #:[id number] : 1970 52 From: Jeison thornton MD PCP: Dr. Desean Bonilla MD Status :ADM ZOHAIB [facility] Telemed has confirmed receipt of a request for visit. This document confirms receipt of the order initiating the consult. To find the results of the consultation, please view the patient's reports for the scanned Telemed Consult. [facility] Work Phone: 1(814) 916-121704-06-[address] Subramanian [facility] September 24, 2022 9:57am Note Date/Time September 24, 2022 8:38 am [facility] Medical Records Department [address] [place] [address] Emergency Department Summary 09/24/22 MR#: [id number] Acct: [id number] Name: FLORELINWILFRIDO ELOISA Rep #:[id number] : 1970 52 From: Emery Subramanian MD PCP: Dr. Desean Bonilla MD Status :REG ER Location: ED HPI History of Present Illness Chief Complaint: Weakness Narrative Narrative: 52-year-old female past medical history of previous CVA without residual deficit, migraine headache, depression, hypertension, presents via EMS with left-sided weakness which is new for her. Her last known well time was yesterday evening at around 7 PM, approximately 13-1/2 hours ago. Per EMS, uponarrival, she had elevated blood pressure of 230 systolic. Labetalol 20 mg was given per protocol. She had noted left-sided weakness, with arm and leg drift. Prehospital stroke team was called by EMS. [facility] Medical History Alcohol abuse CVA (cerebral vascular accident) Depression Hepatitis B Hidradenitis suppurativa Hypertension Irregular heart beat Left axillary hidradenitis Smoker Tobacco use Vision loss of left eye Vision loss of right eye Home Medications aspirin 81 mg chewable tablet 81 mg PO DAILY 07/02/22 [History Last Taken Unknown] atorvastatin 80 mg tablet 80 mg PO QHS 07/02/22 [History Last Taken Unknown] hydrochlorothiazide 25 mg tablet 25 mg PO DAILY 07/02/22 [History Last Taken Unknown] lisinopril 20 mg tablet 20 mg PO DAILY 07/02/22 [History Last Taken Unknown] metoprolol succinate 50 mg tablet,extended release 24 hr 50 mg PO DAILY 07/02/22[History Last Taken Unknown] clopidogrel 75 mg tablet 75 mg PO DAILY 21 days #21 tabs 07/04/22 [Rx Last Taken Unknown] Allergy/AdvReac Type Severity Reaction Status Date / Time Penicillins Allergy Hives Verified 09/24/22 08:50 Family History Mother CVA (cerebral vascular accident) CAD (coronary artery disease) Hypertension Heart disease Myocardial infarction Father CAD (coronary artery disease) Heart disease Hypertension Myocardial infarction Surgical History H/O umbilical hernia repair History of bilateral tubal ligation History of eye surgery Hx of cataract surgery S/P lens implant Status post glaucoma surgery Status post tonsillectomy and adenoidectomy Social History household members: none Smoking Status: Current every day smoker tobacco type: cigarettes how long ago did patient quit smoking: Patient reports 1/2 ppd cigarette tobacco use since teen. alcohol intake: never substance use type: does not use ROS ROS ED ROS Narrative Constitutional: No fever, no chills. HEENT: No sore throat. No neck pain. No loss of vision. No rhinorrhea. Cardiovascular: No chest pain. No palpitations. No pedal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 without obvious cystic encephalomalacia and atrophy are not obvious in today''s MRI scan. 3. Old ischemic infarct with cystic encephalomalacia and atrophy of the right occipital lobe is unchanged. 4. Confluent and chronic white matter ischemic changes in both cerebral hemispheres are unchanged. N.B. : The above Results were Read Back by Emery Lynn MD to Adams Mchugh MD, and understanding confirmed on 09/24/2022 13:08:42 (ET). Echocardiogram 09/24/22 10:53 Interpretation Summary This was a limited 2D transthoracic echocardiogram. Severe concentric left ventricular hypertrophy. The left ventricular ejection fraction is 75 %. Mild diffuse mitral valve thickening. Mild mitral annular calcification. Medications at Discharge Home Medications aspirin 81 mg chewable tablet 81 mg PO DAILY blood thinner 07/02/22 atorvastatin 80 mg tablet 80 mg PO QHS cholesterol 07/02/22 hydrochlorothiazide 25 mg tablet 25 mg PO DAILY blood presure 07/02/22 lisinopril 20 mg tablet 20 mg PO DAILY blood pressure 07/02/22 metoprolol succinate 50 mg tablet,extended release 24 hr 50 mg PO DAILY blood pressure 07/02/22 clopidogrel 75 mg tablet 75 mg PO DAILY Check with primary doctor 09/24/22 multivitamin 1 cap PO DAILY supplement 09/24/22 nicotine 21 mg/24 hr daily transdermal patch 21 mg transdermal DAILY #30 ea 09/27/22 polyethylene glycol 3350 17 gram oral powder packet 17 g PO DAILY #0 ea 09/27/22 Physical Exam Narrative Seen and examined in the morning. BP profile is improved. Heart rate controlled. Headache resolved. She stated she wants to go home. Evaluated PT and OT and recommended discharge home with home health. Physical exam General: Alert, Oriented x3, Cooperative HEENT: Atraumatic, PERRLA, EOMI, Normocephalic. No acute tenderness over head and neck region. 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 Right eye very blurry. Oral: Oral mucosa moist. No Gingival or Mucosal Lesions/ Ulcerations Neck: Supple, No JVD, Negative Carotid Bruits Lungs: Air entry diminished in bilateral lung bases. No crepitation/rhonchi Cardiovascular: Regular rate, Regular Rhythm, Normal S1, Normal S2, No murmurs Abdomen: Bowel Sounds Present, Soft, Non Tender, Non-Distended : No renal angle tenderness. No suprapubic tenderness. Extremities: No edema, Capillary Refill Less than 3 Seconds Skin: No rashes, No breakdown Musculoskeletal: No Tenderness to Palpation of Joints or Extremities, left leg 4+/5 at major joints improving. Neurological: Cranial nerves II-XII grossly intact, DTR 2+/4. Psych/Mental Status: Flat affect. Sad. Weight / BMI Weight Weight: 143 lb 4.807 oz Body Mass Index (BMI) 27.1 ABG / Lab / Microbiology Data Result Diagrams: 09/25/22 07:05 09/25/22 07:05 D/C Instructions Discharge Diet: 2000 mg Sodium Diet Weight Bearing Status: Weight bearing as tolerated Call your doctor if you observe: Fever of 101 or Higher, Coldness, Increased Pain, Numbness or Tingling, Change in Color, Inability to urinate, Inability to have a bowel movement, Using more than 1 pad per hour, Shortness of breath, Dizziness, Fainting spells, Swelling in the ankles, Chest pain, Prolonged hiccupping, Increased palpitations (irregular heartbeat) and Calf discomfort When: IN 2 WEEKS Meaningful Use Info Meaningful Use Diagnoses (Choose all that apply): Ischemic CVA CVA Therapy Assessed for PT,OT and/or ST?: Yes Ischemic Stroke Antithrombotic order at d/c?: Yes Dx of Atrial fib/flutter?: No Anticoagulant at discharge?: Yes Statins at discharge?: Yes Primary Dx Acute Ischemic CVA?: Yes Discharge Plan Admission Admit Date/Time: 09/25/22 10:53 Primary Reason for Your Visit: Acute ischemic stroke. Attending Provider: Roger Alves Primary Care Provider: Desean Bonilla Consulting Providers: Jeison Lamas Discharge Orders/Prescriptions Prescriptions: New polyethylene glycol 3350 17 gram Powder In Packet 17 g PO DAILY Qty: 0 0RF nicotine 21 mg/24 hr Patch 24 Hour 21 mg transdermal DAILY Qty: 30 0RF Continued atorvastatin 80 mg tablet 80 mg PO QHS Label Comments: TAKE 1 TABLET BY MOUTH EVERY DAY AT BEDTIME metoprolol succinate 50 mg tablet extended release 24 hr 50 mg PO DAILY Label Comments: TAKE 1 TABLET BY MOUTH EVERY DAY lisinopril 20 mg tablet 20 mg PO DAILY Label Comments: TAKE 1 TABLET BY MOUTH EVERY DAY aspirin 81 mg tablet,chewable 81 mg PO DAILY Label Comments: TAKE 1 TABLET BY MOUTH EVERY DAY hydrochlorothiazide 25 mg tablet 25 mg PO DAILY Label Comments: TAKE 1 TABLET BY MOUTH EVERY DAY clopidogrel 75 mg tablet 75 mg PO DAILY multivitamin Capsule 1 cap PO DAILY Other Ambulatory Orders: 30 Day Event Recorder Preventi (Urgent) Timeframe: 1 Day Facility: [facility] - Location: Cardiovascular Services Ordered By: Dr. Roger Alves Referrals / Follow Up: Desean Bonilla MD [Primary Care Provider] - Desean Bonilla MD [Outreach Lab Services] - Rudi Childs MD [Non-Staff -Ordering Privileges] - Within 2 Weeks (for recurrent stroke) Disposition Disposition (needs filled in before D/C Order can be placed): Home Health Service Charges/Coding Visit Charges Inpatient E&M: 22475 Disch Hosp >30min 09/27/22 1533 <Electronically signed by Roger Alves MD> Cosigner Signature (if applicable): CC: Dr. Desean Bonilla MD; Dr. Roger Alves MD~ Signed ADDENDUM by Dr. Roger Alves MD on 09/27/22 at 1533 Visit Charges Inpatient E&M: 95169 Disch Hosp >30min 09/27/22 1533<Electronically signed by Roger Alves MD> Cosigner Signature (if applicable): cc: Dr. Desean Bonilla MD; Dr. Roger Alves MD ~* Signed [facility] Work Phone: Evaluation noteNo assessment information available [facility] Work Phone: Evaluation note* Diagnosis Severe pain of right shoulder- [facility] Onset Date Resolution Status Encephalopathy acute Hypertensive urgency acute Stroke acute [facility] Work Phone: Evaluation note* Diagnosis Onset Date Resolution Status Ischemic cerebrovascular accident (CVA) acute Stroke acute Encephalopathy resolved Hypertensive urgency acute Left arm weakness acute Left leg weakness acute Symptoms of cerebrovascular accident acute [facility] Work Phone: Evaluation note* Diagnosis Onset Date Resolution Status Ischemic cerebrovascular accident (CVA) acute Stroke acute Encephalopathy resolved Hypertensive urgency acute Ischemic cerebrovascular accident (CVA) acute Left arm weakness acute Left leg weakness acute Symptoms of cerebrovascular accident acute [facility] Work Phone: Evaluation note* Diagnosis Onset Date Resolution Status Stroke acute Encephalopathy resolved Left arm weakness acute Left leg weakness acute Symptoms of cerebrovascular accident acute CVA (cerebral vascular accident) acute [facility] Work Phone: Evaluation note* Diagnosis Onset Date Resolution Status Stroke acute Encephalopathy resolved Left arm weakness acute Left leg weakness acute Symptoms of cerebrovascular accident acute CVA (cerebral vascular accident) acute Hypertensive emergency acute [facility] Work Phone: Evaluation note* Diagnosis Onset Date Resolution Status Left arm weakness acute Left leg weakness acute Symptoms of cerebrovascular accident acute [facility] Work Phone: Evaluation note* Diagnosis Onset Date Resolution Status Accelerated hypertension acu te Closed intertrochanteric fracture of left hip acute Fall on same level from trip [place] as cause of accidental injury acute Hemiparesis affecting left side as late effect of stro ke acute Noncompliance with medications acute [facility] Work Phone: Evaluation note* Diagnosis Onset Date Resolution Status Accelerated hypertension acu te Closed intertrochanteric fracture of left hip acute Fall on same level from trip [place] as cause of accidental injury acute Hemiparesis affecting left s shaunna as late effect of stroke acute Hypokalemia acute Left leg weakness acute Noncompliance with medications acute ANAND (acute kidney injury) re solved [facility] Work Phone: Evaluation note* Diagnosis Onset Date Resolution Status ANAND (acute kidney injury) re solved Closed intertrochanteric fracture of left hip resolved Hypokalemia resolved [facility] Work Phone: Evaluation note* Diagnosis Onset Date Resolution Status ANAND (acute kidney injury) re solved Closed intertrochanteric fracture of left hip resolved Hypokalemia resolved Orthopedic aftercare acute [facility] Work Phone: Hospital Discharge instructions Additional Instructions Please take Tylenol, ibuprofen as needed for further pain control.[facility] Work Phone: Hospital Discharge instructions Additional Instructions Ice to your foot and ankle. Motrin and Tylenol for pain. Follow-up if not improving.[facility] Work Phone: Reason for referral (narrative)No reason for referral information availableWParkview Health Work Phone: Summary Purpose Family History No Family History Records Found Relationship Condition Age at Onset Recorded Date/T [place] mother Cerebrovascular accident (CVA) Unknown Coronary artery disease Unknown Hypertension Unknown Cardiac disease Unknown Myocardial infarction Unknown father Coronary artery disease Unknown Advance Directives No Advanced Directives Records Found Advance Directive Response Recorded Date/ Time Living Will No April 22 4:26pm Power of Catalog Librarian No April 22, 2022 4:26pm Advance Directive Response Recorded Date/ Time Living Will No April 29 4:57pm Power of Catalog Librarian No April 29, 2022 4:57pm Advance Directive Response Recorded Date/ Time Living Will No July 02 5:30pm Power of Catalog Librarian No July 02, 2022 5:30pm Advance Directive Response Recorded Date/ Time Living Will No September 24, 2022 8:51am Power of Catalog Librarian No September 24 8:51am Advance Directive Response Recorded Date/ Time Living Will No September 24, 2022 10:57am Power of Catalog Librarian No September 24 10:57am Advance Directive Response Recorded Date/ Time Living Will No October 18, 2022 8:05pm Power of Catalog Librarian No October 18 8:05pm Advance Directive Response Recorded Date/ Time Living Will No October 18, 2022 9:48pm Power of Catalog Librarian No October 18 9:48pm Advance Directive Response Recorded Date/ Time Living Will No January 13, 2023 11:32pm Power of Catalog Librarian No January 13 11:32pm Advance Directive Response Recorded Date/ Time Living Will No April 17 9:26pm Power of Catalog Librarian No April 17, 2023 9:26pm Advance Directive Response Recorded Date/ Time Living Will No April 18 1:30am Power of Catalog Librarian No April 18, 2023 1:30am Advance Directive Response Recorded Date/ Time Living Will No April 18 2:30am Power of Catalog Librarian No April 18, 2023 2:30am Chief Complaint and Reason for Visit Chief Complaint RIGHT ARM INJURY Chief Complaint RIGHT ARM INJURY blurred vision CENTRAL/VERTIGO/ATAXIA/HTN URG, POSS CVA Chief Complaint RIGHT ARM INJURY blurred vision CENTRAL/VERTIGO/ATAXIA/HTN URG, POSS CVA ACUTE CVA Reason for Visit Encephalopathy Hypertensive urgency Stroke Chief Complaint ACUTE CVA ACUTE CVA ACUTE CVA ACUTE CVA TIA VS CVA Reason for Visit Ischemic cerebrovasc ular accident (CVA) Stroke Encephalopathy Hypertensive urgency Left arm weakness Left leg weakness Symptoms of cerebrovascular accident Chief Complaint ACUTE CVA ACUTE CVA ACUTE CVA ACUTE CVA TIA VS CVA TIA VS CVA TIA VS CVA TIA VS CVA Reason for Visit Ischemic cerebrovasc ular accident (CVA) Stroke Encephalopathy Hypertensive urgency Ischemic cerebrovascular accident (CVA) Left arm weakness Left leg weakness Symptoms of cerebrovascular accident Chief Complaint ACUTE CVA ACUTE CVA ACUTE CVA ACUTE CVA TIA VS CVA TIA VS CVA TIA VS CVA TIA VS CVA ACUTE CVA Reason for Visit Stroke Encephalopathy Left arm weakness Left leg weakness Symptoms of cerebrovascular accident CVA (cerebral vascular accident) Chief Complaint ACUTE CVA ACUTE CVA ACUTE CVA ACUTE CVA TIA VS CVA TIA VS CVA TIA VS CVA TIA VS CVA ACUTE CVA ACUTE CVA ACUTE CVA ACUTE CVA Reason for Visit Stroke Encephalopathy Left arm weakness Left leg weakness Symptoms of cerebrovascular accident CVA (cerebral vascular accident) Hypertensive emergency Chief Complaint TIA VS CVA TIA VS CVA TIA VS CVA TIA VS CVA ACUTE CVA ACUTE CVA ACUTE CVA ACUTE CVA pain Reason for Visit Left arm weakness Left leg weakness Symptoms of cerebrovascular accident Chief Complaint pain LEFT HIP INTERTROCHANTERIC FRACTURE Reason for Visit Accelerated hyperten [place] Closed intertrochanteric fracture of left hip Fall on same level from tripping as cause of accidental injury Hemiparesis affecting left side as late effect of stroke Noncompliance with medications Chief Complaint pain L HIP INTERTROCHANTERIC FRACTURE LEFT HIP INTERTROCHANTERIC FRACTURE L HIP INTERTROCHANTERIC FRACTURE L HIP INTERTROCHANTERIC FRACTURE L HIP INTERTROCHANTERIC FRACTURE L HIP INTERTROCHANTERIC FRACTURE L HIP INTERTROCHANTERIC FRACTURE L HIP INTERTROCHANTERIC FRACTURE L HIP INTERTROCHANTERIC FRACTURE L HIP INTERTROCHANTERIC FRACTURE L HIP INTERTROCHANTERIC FRACTURE L HIP INTERTROCHANTERIC FRACTURE L HIP INTERTROCHANTERIC FRACTURE Reason for Visit Accelerated hyperten [place] Closed intertrochanteric fracture of left hip Fall on same level from tripping as cause of accidental injury Hemiparesis affecting left side as late effect of stroke Hypokalemia Left leg weakness Noncompliance with medications ANAND (acute kidney injury) Chief Complaint L HIP INTERTROCHANTE CINDA FRACTURE LEFT HIP INTERTROCHANTERIC FRACTURE L HIP INTERTROCHANTERIC FRACTURE L HIP INTERTROCHANTERIC FRACTURE L HIP INTERTROCHANTERIC FRACTURE L HIP INTERTROCHANTERIC FRACTURE L HIP INTERTROCHANTERIC FRACTURE L HIP INTERTROCHANTERIC FRACTURE L HIP INTERTROCHANTERIC FRACTURE L HIP INTERTROCHANTERIC FRACTURE L HIP INTERTROCHANTERIC FRACTURE L HIP INTERTROCHANTERIC FRACTURE L HIP INTERTROCHANTERIC FRACTURE GROUP HOME LABWORK LABWORK L HIP INTERTROCHANTERIC FRACTURE Reason for Visit ANAND (acute kidney in ) Closed intertrochanteric fracture of left hip Hypokalemia Chief Complaint L HIP INTERTROCHANTE CINDA FRACTURE LEFT HIP INTERTROCHANTERIC FRACTURE L HIP INTERTROCHANTERIC FRACTURE L HIP INTERTROCHANTERIC FRACTURE L HIP INTERTROCHANTERIC FRACTURE L HIP INTERTROCHANTERIC FRACTURE L HIP INTERTROCHANTERIC FRACTURE L HIP INTERTROCHANTERIC FRACTURE L HIP INTERTROCHANTERIC FRACTURE L HIP INTERTROCHANTERIC FRACTURE L HIP INTERTROCHANTERIC FRACTURE L HIP INTERTROCHANTERIC FRACTURE L HIP INTERTROCHANTERIC FRACTURE GROUP HOME LABWORK GROUP HOME LABWORK LABWORK L HIP INTERTROCHANTERIC FRACTURE LEFT HIP room 2 Reason for Visit ANAND (acute kidney in jur) Closed intertrochanteric fracture of left hip Hypokalemia Orthopedic aftercare Chief Complaint L HIP INTERTROCHANTE CINDA FRACTURE LEFT HIP INTERTROCHANTERIC FRACTURE L HIP INTERTROCHANTERIC FRACTURE L HIP INTERTROCHANTERIC FRACTURE L HIP INTERTROCHANTERIC FRACTURE L HIP INTERTROCHANTERIC FRACTURE L HIP INTERTROCHANTERIC FRACTURE L HIP INTERTROCHANTERIC FRACTURE L HIP INTERTROCHANTERIC FRACTURE L HIP INTERTROCHANTERIC FRACTURE L HIP INTERTROCHANTERIC FRACTURE L HIP INTERTROCHANTERIC FRACTURE L HIP INTERTROCHANTERIC FRACTURE GROUP HOME LABWORK GROUP HOME LABWORK LABWORK L HIP INTERTROCHANTERIC FRACTURE GROUP HOME LAB WORK LEFT HIP room 2 Reason for Visit ANAND (acute kidney in jury) Closed intertrochanteric fracture of left hip Hypokalemia Orthopedic aftercare Chief Complaint L HIP INTERTROCHANTE CINDA FRACTURE LEFT HIP INTERTROCHANTERIC FRACTURE L HIP INTERTROCHANTERIC FRACTURE L HIP INTERTROCHANTERIC FRACTURE L HIP INTERTROCHANTERIC FRACTURE L HIP INTERTROCHANTERIC FRACTURE L HIP INTERTROCHANTERIC FRACTURE L HIP INTERTROCHANTERIC FRACTURE L HIP INTERTROCHANTERIC FRACTURE L HIP INTERTROCHANTERIC FRACTURE L HIP INTERTROCHANTERIC FRACTURE L HIP INTERTROCHANTERIC FRACTURE L HIP INTERTROCHANTERIC FRACTURE GROUP HOME LABWORK GROUP HOME LABWORK LABWORK GROUP HOME LABWORK L HIP INTERTROCHANTERIC FRACTURE GROUP HOME LAB WORK GROUP HOME LAB WORK LEFT HIP room 2 Reason for Visit ANAND (acute kidney in jury) Closed intertrochanteric fracture of left hip Hypokalemia Orthopedic aftercare Chief Complaint L HIP INTERTROCHANTE CINDA FRACTURE LEFT HIP INTERTROCHANTERIC FRACTURE L HIP INTERTROCHANTERIC FRACTURE L HIP INTERTROCHANTERIC FRACTURE L HIP INTERTROCHANTERIC FRACTURE L HIP INTERTROCHANTERIC FRACTURE L HIP INTERTROCHANTERIC FRACTURE L HIP INTERTROCHANTERIC FRACTURE L HIP INTERTROCHANTERIC FRACTURE L HIP INTERTROCHANTERIC FRACTURE L HIP INTERTROCHANTERIC FRACTURE L HIP INTERTROCHANTERIC FRACTURE L HIP INTERTROCHANTERIC FRACTURE GROUP HOME LABWORK GROUP HOME LABWORK LABWORK GROUP HOME LABWORK L HIP INTERTROCHANTERIC FRACTURE GROUP HOME LABWORK GROUP HOME LAB WORK GROUP HOME LAB WORK LEFT HIP room 2 Reason for Visit ANAND (acute kidney in jury) Closed intertrochanteric fracture of left hip Hypokalemia Orthopedic aftercare Chief Complaint recurrent ischemic s troke * dr maldonado to read* 30 DAY MONITOR GROUP HOME LAB WORK Chief Complaint Admit Date GROUP HOME LAB WORK August 28, 2024 5 :00am LABWORK September 03, 2024 9:0 0am Additional Source Comments INFORMATION SOURCE (unrecogn ized section and content) DATE CREATED AUTHOR 12/15/2017 [place] [employer] ([place]) DATE CREATED AUTHOR AUTHOR'S ORGANIZ ATION 04/23/2022 [facility] DATE CREATED AUTHOR AUTHOR'S ORGANIZ ATION 09/26/2022 [facility] DATE CREATED AUTHOR AUTHOR'S ORGANIZ ATION 04/22/2025 [facility] Goals (unrecognized section and content) Goals may be documented in a n alternate sectionGoals may be documented in an alternate sectionGoals may be documented in an alternate sectionGoals may be documented in an alternate sectionGoals may be documented in an alternate sectionGoals may be documented in an alternate sectionGoals may be documented in an alternate section Source Comments (unrecognize d section and content) In the event this informatio n is protected by the Federal Confidentiality of Alcohol and Drug Abuse Patient Records regulations: The Federal rules restrict any use of the information to criminally investigate or prosecute any alcohol or drug abuse patient[facility] Care Teams (unrecognized sec tion and content) Technologist Development Relationship Specialty Start Date End Date Liat Bonilla MD [address] [place], [place] [id number] PCP - General Family Medicine 08/21/16 Team Status: Active Member Role Status Dates No Primary Care Physician Family Provider Active Dr. Desean Bonilla MD Primary Care Provider Acti ve Team Status: Active Member Role Status Dates Dr. Desean BARROS MD Primary Care Provider A ctive Dr. Ronnie Kenyon MD Emergency Provider Active Dr. Kellee Larios MD Admit Provider, Other Provider Active Dr. Georgette Jones MD Attending Provider, Other Provid er Active Team Status: Active Member Role Status Dates Dr. Desean BARROS MD Primary Care Provider A ctive Dr. Hansel Clarke MD Attending Provider Active Team Status: Active Member Role Status Dates Dr. Desean BARROS MD Primary Care Provider A ctive Dr. Ronnie Kenyon MD Emergency Provider Active Dr. Kellee Larios MD Admit Provider, Attending Provider, Other Provider Active Dr. Georgette Jones MD Other Provider Active Team Status: Inactive Member Role Status Dates Dr. Desean BARROS MD Primary Care Provider A ctive Dr. Ronnie Kenyon MD Emergency Provider Active Dr. Kellee Larios MD Admit Provider, Other Provider Active Dr. Georgette Jones MD Attending Provider Active Team Status: Active Member Role Status Dates Emery Subramanian MD Emergency Provider Active Dr. Desean Bonilla MD Primary Care Provider Acti ve Dr. Jeison Lamas MD Admit Provider, Attending Provider Active Team Status: Active Member Role Status Dates Emery Subramanian MD Emergency Provider Active Dr. Desean Bonilla MD Primary Care Provider Acti ve Dr. Jeison Lamas MD Admit Provi alla, Attending Provider, Other Provider Active Team Status: Active Member Role Status Dates Dr. Desean Bonilla MD Primary Care Provider Acti ve Dr. Noman Maldonado MD Attending Provider Active Team Status: Active Member Role Status Dates Emery Subramanian MD Emergency Provider Active Dr. Desean Bonilla MD Primary Care Provider Acti ve Dr. Jeison Lamas MD Admit Provider, Other Pro vider Active Dr. Roger Alves MD Attending Provider, Other Provi alla Active Team Status: Inactive Member Role Status Yoan Subramanian MD Emergency Provider Active Dr. Desaen Bonilla MD Primary Care Provider Acti ve Dr. Jeison Lamas MD Admit Provider, Other Pro vider Active Dr. Roger Alves MD Attending Provider Active Team Status: Active Member Role Status Dates Dr. Desean Bonilla MD Primary Care Provider Acti ve Dr. Courtney Gaxiola MD Emergency Provider Active Dr. Hakeem Bolton MD Admit Provider, Attending Pro vider Active Team Status: Active Member Role Status Dates Dr. Desean Bonilla MD Primary Care Provider Acti ve Dr. Courtney Gaxiola MD Emergency Provider Active Dr. Hakeem Bolton MD Admit Provider, Attending Provider, Other Provider Active Team Status: Active Member Role Status Dates Dr. Desean Bonilla MD Primary Care Provider Acti ve Dr. Courtney Gaxiola MD Emergency Provider Active Dr. Hakeem Bolton MD Admit Provider, Other Provide r Active Dr. Roger Alves MD Attending Provider, Other Provi alla Active Team Status: Active Member Role Status Dates Dr. Desean Bonilla MD Primary Care Provider Acti ve Dr. Hansel Clarke MD Attending Provider Active Team Status: Inactive Member Role Status Dates Dr. Desean Bonilla MD Primary Care Provider Acti ve Dr. Courtney Gaxiola MD Emergency Provider Active Dr. Hakeem Bolton MD Admit Provider, Other Provide r Active Dr. Roger Alves MD Attending Provider Active Team Status: Active Member Role Status Dates No Primary Care Physician Family Provider Active No Primary Care Physician Primary Care Provider Active Team Status: Active Member Role Status Dates Dr. Desean Bonilla MD Primary Care Provider Acti ve Dr. Hansel Clarke MD Attending Provider Active Dr. Roger Alves MD Referring Provider Active Team Status: Inactive Member Role Status Dates No Primary Care Physician Primary Care Provider Active Dr. Mihai Hubbard MD Emergency Provider Active Team Status: Inactive Member Role Status Dates No Primary Care Physician Primary Care Provider Active Dr. Mihai Hubbard MD Attending Provider, Emergency Pro vider Active Team Status: Active Member Role Status Dates No Primary Care Physician Primary Care Provider Active Dr. José Miguel Casanova MD Emergency Provider Active Dr. Hakeem Bolton MD Admit Provider, Attending Pro vider Active Team Status: Active Member Role Status Dates No Primary Care Physician Primary Care Provider Active Dr. José Miguel Casanova MD Emergency Provider Active Dr. Hakeem Bolton MD Admit Provider, Attending Provider, Other Provider Active Dr. Hakeem Velez DO Other Provider Active Team Status: Active Member Role Status Dates No Primary Care Physician Primary Care Provider Active Dr. José Miguel Casanova MD Emergency Provider Active Dr. Hakeem Bolton MD Admit Provider, Other Provide r Active Dr. Hakeem Velez DO Attending Provider, Other Prov ider Active Dr. Erik Pineda DO Other Provider Active Dr. Rda Baker DO Referring Provider Active Team Status: Active Member Role Status Dates No Primary Care Physician Primary Care Provider Active Dr. José Miguel Casanova MD Emergency Provider Active Dr. Hakeem Bolton MD Admit Provider, Other Provide r Active Dr. Hakeem Velez DO Other Provider Active Dr. Erik Pineda DO Attending Provider, Other Provid er Active Team Status: Active Member Role Status Dates No Primary Care Physician Primary Care Provider Active Dr. José Miguel Casanova MD Emergency Provider Active Dr. Hakeem Bolton MD Admit Provider, Other Provide r Active Dr. Hakeem Borruso , DO Attending Provider, Other Prov ider Active Dr. Erik Pineda , DO Other Provider Active Team Status: Active Member Role Status Dates No Primary Care Physician Primary Care Provider Active Dr. José Miguel Casanova MD Emergency Provider Active Dr. Hakeem Bolton MD Admit Provider, Other Provide r Active Dr. Hakeem Velez , DO Other Provider Active Dr. Roger Alves MD Attending Provider, Other Provi alla Active Dr. Erik Pineda , DO Other Provider Active Team Status: Active Member Role Status Dates No Primary Care Physician Primary Care Provider Active Dr. José Miguel Casanova MD Emergency Provider Active Dr. Hakeem Bolton MD Admit Provider, Other Provide r Active Dr. Hakeem Velez , DO Other Provider Active Dr. Roger Alves MD Other Provider Active Dr. Erik Pineda , DO Other Provider Active Dr. Gay Pantoja MD Attending Provider Active Team Status: Active Member Role Status Dates No Primary Care Physician Primary Care Provider Active Dr. José Miguel Casanova MD Emergency Provider Active Dr. Hakeem Bolton MD Admit Provider, Other Provide r Active Dr. Hakeem Velez , DO Other Provider Active Dr. Erik Pineda , DO Other Provider Active Dr. Jeison Lamas MD Attending Provider, Other Provider Active Dr. Roger Alves MD Other Provider Active Team Status: Active Member Role Status Dates No Primary Care Physician Primary Care Provider Active Dr. José Miguel Casanova MD Emergency Provider Active Dr. Hakeem Bolton MD Admit Provider, Other Provide r Active Dr. Hakeem Velez , DO Other Provider Active Dr. Erik Pineda , DO Other Provider Active Dr. Roger Alves MD Other Provider Active Dr. Rda Baker , DO Attending Provider, Other Pro vider Active Dr. Jeison Lamas MD Other Provider Active Team Status: Inactive Member Role Status Dates No Primary Care Physician Primary Care Provider Active Dr. José Miguel Casanova MD Emergency Provider Active Dr. Hakeem Bolton MD Admit Provider, Other Provide r Active Dr. Hakeem Velez , DO Other Provider Active Dr. Erik Pineda , DO Other Provider Active Dr. Roger Alves MD Other Provider Active Dr. Rad Baker , DO Attending Provider Active Dr. Jeison Lamas MD Other Provider Active Team Status: Active Member Role Status Dates No Primary Care Physician Primary Care Provider Active Dr. José Miguel Casanova MD Emergency Provider Active Dr. Hakeem Bolton MD Admit Provider, Other Provide r Active Dr. Hakeem Velez , DO Other Provider Active Dr. Roger Alves MD Attending Provider, Other Provi alla Active Dr. Erik Pineda , DO Other Provider Active Dr. Gay Pantoja MD Active Team Status: Active Member Role Status Dates No Primary Care Physician Primary Care Provider Active Ronnie BARROS Attending Provider Active Team Status: Active Member Role Status Dates No Primary Care Physician Primary Care Provider Active Dr. Violetta BARROS MD Attending Provider Active Team Status: Inactive Member Role Status Dates No Primary Care Physician Primary Care Provider Active Dr. Violetta BARROS MD Attending Provider Active Team Status: Inactive Member Role Status Dates No Primary Care Physician Primary Care Provider, Refer ring Provider Active Dr. Hakeem Velez , Attending Provider Active Team Status: Inactive Member Role Status Dates No Primary Care Physician Primary Care Provider Active Dr. Hansel Clarke MD Attending Provider Active Team Status: Inactive Member Role Status Dates No Primary Care Physician Primary Care Provider Active Ronnie BARROS Attending Provider Active Team Status: Inactive Member Role Status Dates No Primary Care Physician Primary Care Provider Active Dr. Violetta BARROS MD Attending Provider, Referring Provider Active Team Status: Active Member Role Status Dates No Primary Care Physician Primary Care Provider Active Dr. Noman Maldonado MD Attending Provider Active Dr. Roger Alves MD Referring Provider Active Team Status: Active Member Role Status Dates No Primary Care Physician Primary Care Provider Active Dr. Roger Alves MD Attending Provider, Referring P jose Active Team Status: Inactive Member Role Status Dates No Primary Care Physician Primary Care Provider Active Start: August 28, 2024 End: August 28, 2024 Dr. Violetta BARROS MD Attending Provider Active Start: August 28, 2024 End: August 28, 2024 Team Status: Active Member Role Status Dates No Primary Care Physician Primary Care Provider Active Start: September 03, 2024 Dr. Mannie BARROS MD Attending Provider Active Start: September 03, 2024 Team Status: Inactive Member Role Status Dates No Primary Care Physician Primary Care Provider Active Start: September 03, 2024 End: September 03, 2024 Dr. Mannie BARROS MD Attending Provider Active Start: September 03, 2024 End: September 03, 2024 FOR RECORDS PERTAINING TO PATIENTS WHO ARE OR HAVE BEEN ENROLLED IN A CHEMICAL DEPENDENCY/SUBSTANCEABUSE PROGRAM, SOME INFORMATION MAY BE OMITTED. This clinical summary was aggregated from multiple sources. Caution should be exercised in using it in the provision of clinical care. This summary normalizes information from multiple sources, and as a consequence, information in this document may materially change the coding, format and clinical context of patient data. In addition, data may be omitted in some cases. CLINICAL DECISIONS SHOULD BE BASED ON THE PRIMARY CLINICAL RECORDS. [employer] [facility]. provides no warranty or guarantee of the accuracy or completeness of information in this document.
[2025-04-24 08:39] LABS: Hematocrit 26.2 % (37-47); Hemoglobin 7.8 g/dL (12.0-15.0); Mean Corp Hgb Conc 29.8 g/dL (32-36); Mean Corpuscular Volume 70.6 fL (81-99); Mean Platelet Vol. 11.0 fl (6.2-12.0); Platelet Count 535 K/mm3 (150-450); RBC Distribution Width CV 16.7 % (11.6-14.6); RBC Distribution Width SD 42.1 fl (35.1-43.9); Red Blood Count 3.71 M/mm3 (4.2-5.4); White Blood Count 8.1 K/mm3 (4.4-11.0)
[2025-04-24 09:20] LABS: Vitamin D,25 Hydroxy 42.2 ng/mL (30-100)
== END | disposition home or self-care (01) ==
LOC: OLS.SW 05:00
PROVIDERS: Visit Provider Family Medicine
DX: I10 Essential (primary) hypertension (principal)
CPT/HCPCS: 36415; 82306; 85027